=== PATIENT | male | born 1965 | race Caucasian/White ===

== ENCOUNTER 2019-04-29 19:46 | Emergency (ER) | payer MEDICAID, SELFPAY ==
[2019-04-29 19:47] VITALS: BP 162/98; PULSE 81; RESP 16; TEMP 36.7; O2SAT 97; BMI 34.3
--- NOTE | 2019-04-29 20:14 | ED.VIS.LOWEX ---
History of Present Illness Chief Complaint: Lower Extremity Injury Informant: Patient Occurred: Today - 5-6 hrs ago Mechanism/Context: - - suddenly while stepping out of his truck Timing: Continuous Quality of Pain: Aching Location: left knee, anteriorly Current Severity: Severe Maximum Severity: Severe Worsened by: bending and while resting Relieved by: walking Associated Symptoms: Negative for: Parasthesia, Weakness, Loss of Funtion Narrative: Patient denies any direct trauma. He stepped out of his truck and had sudden pain in his left knee that has persisted all day today. He states the pain is severe yet he did not take any medication for it. He had an ACL repair remotely and wants to make sure that is okay. - Past Medical History (1) Type 2 diabetes mellitus Status: Chronic Past Medical History - Allergies and Home Meds Allergies/Adverse Reactions: Allergies aspirin Allergy (Verified 04/29/19 19:48) Other Primary Care Physician: Care Physician,No Primary [Primary Care Provider] - Surgical History: - - Left ACL repair Lives: Spouse/ Significant Other Smoking Status: Never smoker Review of Systems General: Denies: Chills, Fever, Sweats Musculoskeletal: Reports: Extremity Pain. Denies: Swelling Skin: Denies: Rash, Wounds Neurological: Denies: Headache, Weakness, Numbness Physical Exam Vital Signs/Narrative: Vital Signs Temp Pulse Resp BP Pulse Ox 04/29/19 19:47 98.0 F 81 16 162/98 H 97 Inital Vital Signs reviewed: Yes - Extremity Exam Left Knee: Limited ROM - With regards to flexion only due to pain. Can flex most of the way. Extensor mechanism intact., - - No signs of trauma. He has mild diffuse tenderness but the majority of it is right at the patellar ligament, between the patella and the tibial tuberosity, the latter of which is mildly tender. No significant pain or laxity with stressing all 4 knee ligaments with a negative Ti and negative posterior drawer.. Negative for: Edema - No effusion General: Well nourished, Well developed, - - NAD Head: Normocephalic, Atraumatic Skin: Normal color, No rash, No Trauma Neurological: Alert, Oriented x3, Cranial nerves II-XII grossly intact, Normal Strength, Normal Sensation Psychological: Normal affect, Normal Mood Diagnostic/Tx/Re-eval - Medical Decision Making I do not think patient needs an x-ray since he really has no focal significant bony tenderness. I think he just strained it. Supportive care is advised along with an Dominguez wrap, since he has taken nothing at home he was given something here, but I will not prescribe anti-inflammatories since he has diabetes, which I would have done under normal circumstances if he did not have diabetes. We will give him orthopedic follow-up in case he does not get better after about a week or so. ED Disposition - Plan for ED Patient: Disposition: Home or Assisted Living Diagnosis: Strain of left patellar tendon Instructions: Knee Sprain Referrals: Dominic Mendiola DO [STAFF PHYSICIAN] - 1 Week if not improving
[2019-04-29] MEDS: Acetaminophen 500 MG Tablet 1000 MG PO (20:28)
[2019-04-29] MEDS: Naproxen 250 MG Tablet 500 MG PO (20:28)
[2019-04-29 20:29] VITALS: RESP 18
== END 2019-04-29 20:33 | disposition home or self-care (01) ==
LOC: ED 20:22
PROVIDERS: Emergency Provider Emergency Medicine
DX: S76.112A Strain of left quadriceps muscle, fascia and tendon, initial encounter (principal); X58.XXXA Exposure to other specified factors, initial encounter; Y93.89 Activity, other specified; Y92.812 Truck as the place of occurrence of the external cause; E11.9 Type 2 diabetes mellitus without complications; Z79.84 Long term (current) use of oral hypoglycemic drugs
CPT/HCPCS: 99282

== ENCOUNTER 2019-05-18 01:38 | Emergency (ER) | payer MEDICAID, SELFPAY ==
[2019-05-18 01:41] VITALS: BP 161/84; PULSE 86; RESP 18; TEMP 36.4; O2SAT 95; BMI 34.5
--- NOTE | 2019-05-18 01:48 | ED.DCSUM_ITS ---
History of Present Illness Chief Complaint: Nosebleed Narrative: Patient is a 53-year-old male who presents with a nosebleed. His bleeding has been from the right side. It began about 4 hours ago. He has been unable to control it with direct pressure. He does have a history of frequent nosebleeds. 5 to 6 years ago he was seen in another emergency department and underwent cautery. He does not use oxygen. He is not on any anticoagulation. He is otherwise been well. No recent illness. Past Medical History - Allergies and Home Meds Allergies/Adverse Reactions: Allergies aspirin Allergy (Verified 05/18/19 01:40) Other Past Medical History: - - Diabetes, hypertension Surgical History: - - Left ACL repair Smoking Status: Former smoker Review of Systems All systems negative except as indicated General: Denies: Fever ENT: Reports: - - Epistaxis Cardiovascular: Denies: Chest pain Respiratory: Denies: Dyspnea Gastrointestinal: Denies: Nausea, Vomiting Musculoskeletal: Denies: Myalgias, Arthralgias Skin: Denies: Rash Neurological: Denies: Headache Physical Exam Vital Signs/Narrative: Vital Signs Temp Pulse Resp BP Pulse Ox 05/18/19 01:41 97.6 F L 86 18 161/84 H 95 General: Well nourished Head: Normocephalic ENT: Moist mucous membranes, - - Patient has irritated oozing mucosa of the anterior nasal septum on the right Neck: Supple Cardiovascular: Regular rate Respiratory: No distress Skin: Normal color Neurological: Alert Psychological: Normal affect Diagnostic/Tx/Re-eval - Medical Decision Making An Afrin-soaked cotton ball was placed in the right nare. Given that he was u sing without this bleeding I thought he was good candidate for thrombin matrix epistaxis kit. Thrombin matrix was used with hemostasis. Patient was observed without any further bleeding. He will be discharged. ED Disposition - Plan for ED Patient: Disposition: Home or Assisted Living Diagnosis: Epistaxis Instructions: Nosebleed
[2019-05-18] MEDS: Oxymetazoline 0.05% 1 SPRAY SPRAY.BTL NASAL (01:59)
[2019-05-18 02:23] VITALS: RESP 18; O2SAT 98
== END 2019-05-18 02:24 | disposition home or self-care (01) ==
PROVIDERS: Emergency Provider Emergency Medicine
DX: R04.0 Epistaxis (principal); I10 Essential (primary) hypertension; E11.9 Type 2 diabetes mellitus without complications; Z79.84 Long term (current) use of oral hypoglycemic drugs; Z87.891 Personal history of nicotine dependence
CPT/HCPCS: 30901; 99282

== ENCOUNTER 2019-05-30 20:37 | Emergency (ER) | payer MEDICAID, SELFPAY ==
[2019-05-30 20:39] VITALS: BP 157/106; PULSE 84; RESP 16; TEMP 36.7; O2SAT 95; BMI 33.3
--- NOTE | 2019-05-30 22:01 | ED.DCSUM_ITS ---
History of Present Illness Chief Complaint: Cold Sx Informant: Patient Onset: Weeks - 3 Context: Gradual Onset Timing: Continuous Quality: occ prod cough Current Severity: Moderate Maximum Severity: Moderate Worsened by: - - coughing Relieved by: - - nothing; not improving after 3 wks Associated Symptoms: Nasal Congestion, Headache - occasional, not now, Productive Cough, - - mild sore throat. no earache.. Negative for: Sinus Pressure, Nausea, Vomiting, Diarrhea, Shortness of Breath, Chest Pain, Hemoptysis Narrative: Patient no longer smokes. Has history of COPD without home oxygen, states that his COPD has not felt like it is flared up, he has really had no wheezing. No chest pain. No leg swelling. No neck pain or stiffness,. No fevers. - Past Medical History (1) COPD (chronic obstructive pulmonary disease) Status: Chronic (2) Type 2 diabetes mellitus Status: Chronic Past Medical History - Allergies and Home Meds Allergies/Adverse Reactions: Allergies aspirin Allergy (Verified 05/30/19 20:43) Other Primary Care Physician: [facility] Doctor,Out of [Primary Care Provider] - Surgical History: - - Left ACL repair Lives: Spouse/ Significant Other Smoking Status: Former smoker Review of Systems General: Reports: Malaise. Denies: Chills, Fever, Sweats Eyes: Denies: Visual changes - bilaterally, Diplopia ENT: Reports: Rhinorrhea, Sore throat. Denies: Bilateral ear pain Cardiovascular: Denies: Chest pain, Palpitations, Heart racing Respiratory: Reports: Cough, Sputum. Denies: Dyspnea, Dyspnea on exertion Gastrointestinal: Denies: Abdominal pain, Nausea, Vomiting, Diarrhea, Melena, Hematochezia Genitourinary: Denies: Dysuria, Hematuria, Frequency Musculoskeletal: Denies: Back pain, Swelling, Extremity Pain Skin: Denies: Rash, Wounds Neurological: Denies: Headache, Weakness, Numbness Physical Exam Vital Signs/Narrative: Vital Signs Temp Pulse Resp BP Pulse Ox 05/30/19 20:39 98.0 F 84 16 157/106 H 95 Inital Vital Signs reviewed: Yes General: Well nourished, Well developed Head: Normocephalic, Atraumatic Eyes: Perrl, EOMI Ears: Normal external canal, TM's clear Nose: Normal Inspection, No Rhinorrhea Mouth/Throat: Normal Inspection, Airway Patent, Posterior Oropharyngeal Erythema Tonsils: Negative for: Right Tonsilar Exudates, Left Tonsilar Exudates Neck: Supple, Nontender, No Lymphadenopathy, No Meningismus Cardiovascular: Regular rate, Regular rhythm, No murmurs Respiratory: No distress, CTA bilaterally, Chest nontender Abdomen: Soft, Nontender, Nondistended, Normal bowel sounds Back: Nontender, Normal Inspection Extremities: Nontender, No edema. Negative for: Calf Tenderness Skin: Normal color, No rash Neurological: Alert, Oriented x3, Cranial nerves II-XII grossly intact, Normal Strength, Normal Sensation, Normal Gait Psychological: Normal affect, Normal Mood Diagnostic/Tx/Re-eval - Medical Decision Making With history of COPD, respiratory symptoms not improving after 3 weeks, and diabetes I think it is reasonable to treat him with a broad-spectrum antibiotic. His pulse ox is good, his lungs are clear so I do not think further work-up including chest x-ray is indicated at this time. All questions answered at the bedside patient is comfortable with this plan. ED Disposition - Plan for ED Patient: Disposition: Home or Assisted Living Diagnosis: Acute bronchitis, COPD (chronic obstructive pulmonary disease) Instructions: BRONCHITIS, Antiobiotic Treatment (Adult) Prescriptions: Azithromycin [Zithromax Z-Evangelist] 250 mg PO UD #1 box Transmission Status: Pending to [facility] - [place] Referrals: [facility] Doctor,Out of [Primary Care Provider] - 1 Week if not improving
[2019-05-30 22:10] VITALS: PULSE 94; RESP 22; O2SAT 97
== END 2019-05-30 22:11 | disposition home or self-care (01) ==
LOC: ED 22:08
PROVIDERS: Emergency Provider Emergency Medicine
DX: J44.0 Chronic obstructive pulmonary disease with (acute) lower respiratory infection (principal); J20.9 Acute bronchitis, unspecified; E11.9 Type 2 diabetes mellitus without complications; Z79.84 Long term (current) use of oral hypoglycemic drugs; Z99.81 Dependence on supplemental oxygen; Z87.891 Personal history of nicotine dependence
CPT/HCPCS: 99282

== ENCOUNTER 2019-06-02 20:54 | Emergency (ER) | payer MEDICAID, SELFPAY ==
[2019-06-02 20:56] VITALS: BP 186/115; PULSE 86; RESP 18; TEMP 37.1; O2SAT 96; BMI 33.2
[2019-06-02 21:33] VITALS: PULSE 80; RESP 15; O2SAT 96
--- NOTE | 2019-06-02 21:41 | ED.DCSUM_ITS ---
- ER Visit Summary Date of Service: 06/02/19 Chief Complaint: Nosebleed History of Present Illness: The patient is a 53 M who presents with intermittent nosebleeds for 3 days. He states he has had intermittent nosebleeds for 3 days. They have been stopping on their own but one lasted a little longer than normal so he came in. Denies any trauma. He is on no blood thinning medications. He has had a history of epistaxis in the past. He is currently living in his car with his significant other. He took nothing for this. Physical Examination: Vital signs reviewed. HEENT exam reveals dried blood in the left nares. No active bleeding. There is no septal hematoma. His neck is supple. The rest of his exam is unremarkable. Test Results: None performed Emergency Department Course and Treatment: The patient currently has epistaxis that is intermittent. He does have some dried membranes. I will send him home with Gilmer nasal spray. I do not feel he needs any packing at this time. He will follow-up with his PCP Treatment Plan: [] Disposition: Discharge Impression: Epistaxis, resolved This note was generated with [employer] dictation software. It may contain incorrect words, spelling, and punctuation that were not noted in review of the chart prior to signing ED Disposition - Plan for ED Patient: Disposition: Home or Assisted Living Instructions: Nosebleed Prescriptions: Sodium Chloride 0.65% [Gilmer Nasal [place]] 1 spray NASAL BID #1 spray.btl Transmission Status: Pending to [facility] - [place] Referrals: Care Physician,No Primary [Primary Care Provider] - Additional Instructions: Your prescription was electronically transmitted to [facility]
[2019-06-02 21:53] VITALS: BP 140/101; PULSE 72; RESP 16; O2SAT 98
== END 2019-06-02 21:54 | disposition home or self-care (01) ==
PROVIDERS: Emergency Provider Emergency Medicine
DX: R04.0 Epistaxis (principal); I10 Essential (primary) hypertension; J44.9 Chronic obstructive pulmonary disease, unspecified; E11.9 Type 2 diabetes mellitus without complications; Z79.84 Long term (current) use of oral hypoglycemic drugs; Z59.0 Homelessness; Z72.0 Tobacco use
CPT/HCPCS: 99281; 99282

== ENCOUNTER 2019-08-24 11:09 | Emergency (ER) | payer MEDICAID, SELFPAY ==
[2019-08-24 11:10] VITALS: BP 158/112; PULSE 81; RESP 18; TEMP 36.2; O2SAT 97; BMI 35.0
--- NOTE | 2019-08-24 12:05 | ED.DCSUM_ITS ---
- ER Visit Summary Date of Service: 08/24/19 Chief Complaint: Back pain History of Present Illness: The patient is a 54 M who presents with back pain that has been constant for the past 3 days. Patient states he has a history of chronic back problems. Patient states he recently moved to the area from [facility]. Patient does not have a primary care physician currently. Patient states he has been doing a lot of bending and working at his new house. Patient describes the pain as burning and stabbing at times. Patient states pain is over the lower lumbar area and radiates up to his lower thoracic area. Patient states the pain is worse when he bends forward. Patient does admit to some tingling in his low back. Patient states pain does radiate into his abdomen somewhat. Patient denies any dysuria or hematuria. Patient denies any urinary or stool incontinence. Physical Examination: Vital signs are stable. Patient is afebrile. Patient is in no acute distress. Oral mucosa is pink and moist. Neck is supple. Trachea is midline. There is no JVD. Heart was regular rate and rhythm. Lungs are clear and equal bilaterally. Abdomen is soft. Bowel sounds are normal. There is no tenderness. Cranial nerves II through XII are intact. Strength is 5/5 bilaterally in the upper and lower extremities. There are no sensory deficits noted. Deep tendon reflexes are 2/4 bilaterally in the lower extremities. There is tenderness over the lumbar spine and paraspinal muscles, worse on the right. There is no bony crepitance or step-off. Range of motion was slightly limited in all motions of the lumbar spine secondary to pain. Straight leg raises were negative bilaterally. Emergency Department Course and Treatment: Patient was given injection of Toradol here. Patient was given prescriptions for Naprosyn and Flexeril. Ernesto duran was instructed to use ice to the area. Patient was instructed to follow- up with a primary care physician in 5 to 7 days. Patient understood and was agreeable with the plan. All questions were answered. Disposition: Discharge home Impression: 1. Lumbosacral strain This note was generated with [employer] software. It may contain incorrect words, spelling, and punctuation that were not noted in review of the chart prior to signing ED Disposition - Plan for ED Patient: Disposition: Home or Assisted Living Diagnosis: Lumbosacral strain Instructions: ED LUMBAR SPRAIN/STRAIN Prescriptions: cycloBENZAPRine HCl [Flexeril] 10 mg PO QHS PRN PRN #20 tab PRN Reason: Muscle Spasm Prescription Printed Naproxen [Naprosyn] 500 mg PO BID PRN #20 tab Prescription Printed Referrals: Care Physician,No Primary [Primary Care Provider] - Abraham Liu MD [STAFF PHYSICIAN] - 3-5 Days
[2019-08-24] MEDS: Ketorolac 60 MG/2 ML Vial IM (12:48)
== END 2019-08-24 13:40 | disposition home or self-care (01) ==
LOC: ED 12:54
PROVIDERS: Emergency Provider Emergency Medicine
DX: S39.012A Strain of muscle, fascia and tendon of lower back, initial encounter (principal); X58.XXXA Exposure to other specified factors, initial encounter; Y93.9 Activity, unspecified; Y92.9 Unspecified place or not applicable; I10 Essential (primary) hypertension; J44.9 Chronic obstructive pulmonary disease, unspecified; E11.40 Type 2 diabetes mellitus with diabetic neuropathy, unspecified; G25.81 Restless legs syndrome; Z79.84 Long term (current) use of oral hypoglycemic drugs
CPT/HCPCS: 96372; 99282

== ENCOUNTER 2019-11-20 09:55 | Emergency (ER) | payer MEDICAID, SELFPAY ==
[2019-11-20 09:57] VITALS: BP 195/104; PULSE 67; RESP 14; TEMP 36.5; O2SAT 98; BMI 34.4
--- NOTE | 2019-11-20 10:08 | ED.DCSUM_ITS ---
- ER Visit Summary Date of Service: 11/20/19 Chief Complaint: Eye pain and swelling History of Present Illness: The patient is a 54 M with a gradual onset of right lower lid eye pain and swelling over several days. Denies any vision changes or systemic symptoms. He also complains of some lumps to his bilateral armpit areas. Physical Examination: Afebrile and vital signs are unremarkable. External ocular exam is unremarkable except for focal redness and swelling to the lateral lower right lid. The remainder of inspection is normal. No foreign bodies. Extract motion normal. Pupils normal. Patient also has folliculitis to his bilateral axillae on exam without abscess or cellulitis. Test Results: None indicated Emergency Department Course and Treatment: We will treat with warm compresses. He was started on clindamycin for his folliculitis. Follow-up with ophthalmology. Return for any change in vision or any new or concerning symptoms. Treatment Plan: As above Disposition: Discharge Impression: Hordeolum, right lower lid Bilateral axillary folliculitis This note was generated with [employer] dictation software. It may contain incorrect words, spelling, and punctuation that were not noted in review of the chart prior to signing ED Disposition - Plan for ED Patient: Referrals: Care Physician,No Primary [Primary Care Provider] -
--- NOTE | 2019-11-20 10:10 | ED.DEP ---
ED Disposition - Plan for ED Patient: Instructions: ED Hordeolum Prescriptions: Clindamycin [Cleocin] 300 mg PO 4X/DAY #80 cap Prescription Printed Referrals: Raj Olmedo MD [STAFF PHYSICIAN] -
[2019-11-20 10:42] VITALS: PULSE 79; RESP 20; O2SAT 97
--- NOTE | 2019-11-20 10:47 | ED.RN ---
THIS NURSE REVIEWED D/C INSTRUCTIONS WITH PT. PT VERBALIZED UNDERSTANDING OF INSTRUCTIONS. PT DENIES FURTHER NEEDS OR QUESTIONS AT THIS TIME.
== END 2019-11-20 10:47 | disposition home or self-care (01) ==
PROVIDERS: Emergency Provider Emergency Medicine
DX: H00.012 Hordeolum externum right lower eyelid (principal); L73.9 Follicular disorder, unspecified
CPT/HCPCS: 99283

== ENCOUNTER 2020-01-03 14:18 | Emergency (ER) | payer MEDICAID, SELFPAY ==
[2020-01-03 14:21] VITALS: BP 146/96; PULSE 89; RESP 14; TEMP 36.9; O2SAT 98; BMI 34.4
--- NOTE | 2020-01-03 14:25 | RAD_ITS ---
STUDY: X-RAY CHEST REASON FOR EXAM: Male, 54 years old. COUGH, HEADACHE, MUSCLE ACHES, EYE DISCOMFORT TECHNIQUE: Single AP portable view of the chest. COMPARISON: Comparison is made with prior examination dated 01/30/2017. FINDINGS: Hyperinflation. Scattered calcified granulomas. There is no demonstrated pleural abnormality. Normal size heart. Normal mediastinum and bruce. Normal visualized pulmonary arteries. There is atherosclerotic calcification of the aortic arch with tortuosity. There are diffuse degenerative changes of the visualized thoracic spine. Normal visualized ribs, clavicles, and shoulders. There is no demonstrated abnormality of the visualized soft tissue structures of the upper abdomen. RAD/Chest 1 View (Portable) IMPRESSION: Hyperinflation. The lungs are clear. Electronically Signed: Saurabh Snow, at 15:04 EDT , Service support ,
[2020-01-03 14:39] LABS: Absolute Lymphocyte Count 1.19 X10^3/uL (0.83-4.51); Absolute Neutrophil Count 4.2 X10^3/uL (2.0-7.7); Basophil# 0.06 X10^3/uL; Basophil% 0.9 % (0-1); Eosinophils% 4.7 % (0-5); Hematocrit 45.9 % (40-54); Hemoglobin 16.4 g/dL (13.0-16.5); Lymphocyte # 1.19 X10^3/ul (4.0); Lymphocyte % 18.6 % (19-41); Mean Corp Hgb Conc 35.7 g/dL (32-36); Mean Corpuscular Hgb 31.7 pg (27.0-32.0); Mean Corpuscular Volume 88.6 fL (80-94); Mean Platelet Vol. 10.1 fl (6.2-12.0); Monocyte# 0.65 X10^3/uL; Monocyte% 10.2 % (0-10); NRBC Flagged by Analyzer 0 % (0-5); Neutrophil # 4.18 X10^3/uL (2.7-7.7); Neutrophil % 65.3 % (47-70); Platelet Count 212 K/mm3 (150-450); RBC Distribution Width CV 11.9 % (11.6-14.6); RBC Distribution Width SD 38.2 fl (35.1-43.9); Red Blood Count 5.18 M/mm3 (4.6-6.2); White Blood Count 6.4 K/mm3 (4.4-11.0)
[2020-01-03] MEDS: Ibuprofen 400 MG Tablet 800 MG PO (16:23)
[2020-01-03 16:34] VITALS: BP 139/89; PULSE 79; RESP 23; O2SAT 95
--- NOTE | 2020-01-03 16:35 | ED.DCSUM_ITS ---
- ER Visit Summary Date of Service: 01/03/20 Chief Complaint: Cough History of Present Illness: The patient is a 54 M who reports he has a cough began 2 days ago. It is nonproductive. He reports that he has had mild difficulty breathing and has been wheezing. He denies any fever or chills. Ports he is had nausea without vomiting. No diarrhea. Patient does report that he is had sick contacts. He has no known exposure to coronavirus. He does wear a mask at work only. He reports a known history of COPD. Physical Examination: Vitals: Stable. Afebrile. General: Well-nourished and well-developed. Head: Normocephalic atraumatic. Neck: Supple, no lymphadenopathy. No JVD. Nontender. Cardiovascular: Regular rate and rhythm. No murmurs. Respiratory: No respiratory distress. Clear to auscultation bilaterally. Abdominal: Soft, nontender, nondistended, normal bowel sounds. No guarding, rebound, or peritoneal signs. Back: Nontender. Extremities: Nontender, no edema. Skin: Normal color, no rash. Neurologic: Alert and oriented ?3. Cranial nerves II through XII are intact. Normal strength and sensation. Psych: Normal affect. Test Results: CBC shows lymphocytes 19. Chem-7 shows a sodium 135 and glucose of 319. COVID-19 test is pending. Clinical Impression(s) from Imaging Studies Chest X-Ray 01/03/20 14:25 IMPRESSION: Hyperinflation. The lungs are clear. Electronically Signed: Saurabh Pringlejairo, at 15:04 EDT , Service support , Emergency Department Course and Treatment: Patient was treated ibuprofen. Is given a liter of normal saline. Treatment Plan: I had a prolonged discussion with the patient about further control of his blood sugar. He will be discharged with Zithromax and an albuterol MDI. I did not put him on steroids because he is also already hyperglycemic and has had minimal wheezing. He is instructed to follow-up his primary care physician in 10 to 14 days if not improving. I did discuss in the possibility that this could be a COVID-19 infection is instructed to quarantine for the next 10 to 14 days. He is given a note for work. Return to the emergency department for any worsening symptoms. Disposition: To home in improved and stable condition. Impression: 1. URI, possible COVID-19 infection. 2. COPD. This note was generated with [facility] dictation software. It may contain incorrect words, spelling, and punctuation that were not noted in review of the chart prior to signing ED Disposition - Plan for ED Patient: Disposition: Home or Assisted Living Instructions: ED Upper Resp Infec Abx Tx Prescriptions: Albuterol Inhaler [Ventolin Hfa] 1 - 2 puff INHALATION Q4H PRN PRN #1 inhaler PRN Reason: Wheezing Prescription Printed Azithromycin [Zithromax Z-Evangelist] 250 mg PO UD #1 box Prescription Printed Referrals: Doctor,Your [STAFF PHYSICIAN] - 10-14 Days if not better
[2020-01-03 16:42] VITALS: O2SAT 95
[2020-01-03 16:46] LABS: Anion Gap 5 (5-15); BUN 10 mg/dL (7-18); BUN/Creat Ratio 9.4 RATIO (10-20); Calcium,Total 8.6 mg/dL (8.5-10.1); Chloride 103 mmol/L (98-107); Creatinine, Serum 1.06 mg/dL (0.70-1.30); EST Glomerular Filtration Rate 78 mL/min (>60); Est Glom Filt Rate - Afr Amer 94 mL/min (>60); Estimated Creatinine Clearance 88.46 ml/min; Glucose 319 mg/dL (74-106); Potassium 4.4 mmol/L (3.5-5.1); Sodium Level 135 mmol/L (136-145)
[2020-01-03 17:05] VITALS: BP 135/89; PULSE 77; RESP 22; O2SAT 95
--- NOTE | 2020-01-03 17:05 | ED.RN ---
IV DC'ED, CATHETER INTACT, SMALL GAUZE DRESSING PLACED. DISCHARGE INSTRUCTIONS GIVEN TO AND REVIEWED WITH PATIENT, PATIENT DENIES QUESTIONS OR CONCERNS AND VOICES UNDERSTANDING OF DISCHARGE INSTRUCTIONS. PT AMBULATES OUT OF ROOM WITHOUT DIFFICULTY.
== END 2020-01-03 17:06 | disposition home or self-care (01) ==
PROVIDERS: Emergency Medicine; Emergency Provider Emergency Medicine
DX: J06.9 Acute upper respiratory infection, unspecified (principal); J44.9 Chronic obstructive pulmonary disease, unspecified; E11.65 Type 2 diabetes mellitus with hyperglycemia; Z79.84 Long term (current) use of oral hypoglycemic drugs; Z72.0 Tobacco use
CPT/HCPCS: 71045; 80048; 85025; 87635; 94760; 96360; 99284; J7040; A4216; U0003

== ENCOUNTER 2020-02-05 13:21 | Emergency (ER) | payer MEDICAID, SELFPAY ==
[2020-02-05 13:22] VITALS: BP 175/114; PULSE 81; RESP 20; TEMP 36.4; O2SAT 98; BMI 36.1
[2020-02-05 13:30] VITALS: BP 179/103
--- NOTE | 2020-02-05 13:34 | RAD_ITS ---
STUDY: X-RAY - LEFT FOOT CLINICAL: Male, 54 years old. 2nd toe bleeding TECHNIQUE: 3 view(s) of the foot. COMPARISON: None. FINDINGS: Normal talus, calcaneus, and tarsal bones. Normal visualized subtalar, talonavicular, calcaneocuboid, tarsal and tarsometatarsal articulations. Normal metatarsi. Normal metatarsophalangeal joint of the great toe. Normal tibial and fibular sesamoid bones. Normal interphalangeal joint of the great toe. Normal phalanges of the great toe. Normal second through fifth metatarsophalangeal joints. Normal interphalangeal joints and phalanges of the lesser toes. The soft tissue structures are unremarkable. RAD/Foot min 3 Views IMPRESSION: Normal x-ray examination of the foot. Electronically Signed: Jakob Ward, at 14:42 EDT Tel , Service support ,
--- NOTE | 2020-02-05 13:34 | ED.VIS.GEN ---
History of Present Illness Chief Complaint: Eye Problem Narrative: This patient is a 54-year-old male who presents with 2 separate complaints. He stubbed his left second toe yesterday. His nail was avulsed. He has noted a wound at the end of the toe and is concerned because he is diabetic. He had some blood and drainage in his sock. Additionally he noted that his right upper eyelid was red and swollen today. No visual changes. No discharge. No fevers. Past Medical History - Allergies and Home Meds Allergies/Adverse Reactions: Allergies aspirin Allergy (Verified 02/05/20 13:25) Other Primary Care Physician: [facility] Doctor,Out of [NON-STAFF] - Past Medical History: - - Diabetes, peripheral neuropathy Surgical History: - - Left ACL repair Smoking Status: Never smoker Review of Systems All systems negative except as indicated General: Denies: Fever Eyes: Reports: - - Right eyelid swelling. Denies: Visual changes - bilaterally Cardiovascular: Denies: Chest pain Respiratory: Denies: Dyspnea Gastrointestinal: Denies: Nausea, Vomiting, Diarrhea Musculoskeletal: Denies: Myalgias, Arthralgias Skin: Denies: Rash Neurological: Denies: Headache Physical Exam Vital Signs/Narrative: Vital Signs Temp Pulse Resp BP Pulse Ox 02/05/20 13:30 179/103 H 02/05/20 13:22 97.6 F L 81 20 H 175/114 H 98 Inital Vital Signs reviewed: Yes General: Well nourished Head: Normocephalic Eyes: EOMI, - - Patient has blepharitis, there is erythema and edema of the right upper eyelid the conjunctival are normal normal extraocular motion and pupils are equally round ENT: Moist mucous membranes Neck: Supple Cardiovascular: Regular rate, Regular rhythm Respiratory: No distress Extremities: - - There is an avulsion of the left second toenail and a superficial wound just proximal to this no erythema no drainage no bleeding sensation is decreased to light touch diffusely through the toes and patient states that this is baseline he has an easily palpable dorsalis pedis pulse, brisk cap refill Skin: Normal color Neurological: Alert Psychological: Normal affect Diagnostic/Tx/Re-eval Impressions Foot X-Ray 02/05/20 13:34 IMPRESSION: Normal x-ray examination of the foot. Electronically Signed: Jakob Ward, at 14:42 EDT Tel , Service support , 02/05/20 13:34 Foot min 3 Views [RAD] Stat - Medical Decision Making Foot x-ray is normal. Patient will be placed on oral antibiotics for left second toe wound and infection as well as ophthalmic antibiotics for blepharitis. He was instructed on supportive care. He understands to return for new or worsening symptoms. The patient was discharged. ED Disposition - Plan for ED Patient: Disposition: Home or Assisted Living Diagnosis: Blepharitis, Wound, open, toe Instructions: ED Inflammation Eyelid Prescriptions: Cephalexin [Keflex] 500 mg PO Q6 #40 cap Prescription Printed Referrals: [facility] Doctor,Out of [NON-STAFF] -
== END 2020-02-05 15:09 | disposition home or self-care (01) ==
PROVIDERS: Emergency Provider Emergency Medicine
DX: H01.001 Unspecified blepharitis right upper eyelid (principal); S91.205A Unspecified open wound of left lesser toe(s) with damage to nail, initial encounter; L08.9 Local infection of the skin and subcutaneous tissue, unspecified; X58.XXXA Exposure to other specified factors, initial encounter; Y93.9 Activity, unspecified; Y92.9 Unspecified place or not applicable; Y99.9 Unspecified external cause status; E11.42 Type 2 diabetes mellitus with diabetic polyneuropathy; Z79.84 Long term (current) use of oral hypoglycemic drugs
CPT/HCPCS: 73630; 99283

== ENCOUNTER 2020-05-14 16:56 | Emergency (ER) | payer MEDICAID, SELFPAY ==
[2020-05-14 16:57] VITALS: BP 130/70; PULSE 77; RESP 16; TEMP 36.7; O2SAT 94; BMI 33.9
--- NOTE | 2020-05-14 17:45 | ED.VIS.GEN ---
History of Present Illness Chief Complaint: Upper Extremity Injury Informant: Patient Narrative: 53-year-old male presenting with left index finger pain. Is not currently painful. He states when he works outside in the cold his finger gets white and cold. He states it will sometimes take hours to get his color completely back and sensation completely back. It does not happen to any other fingers. He denies any trauma. He states the tip of the finger where his calluses does not have good sensation. - Past Medical History (1) COPD (chronic obstructive pulmonary disease) Status: Chronic (2) Type 2 diabetes mellitus Status: Chronic Past Medical History - Allergies and Home Meds Allergies/Adverse Reactions: Allergies aspirin Allergy (Verified 05/14/20 16:59) Other Primary Care Physician: Kathie Alonso,Out of [Primary Care Provider] - Prior records reviewed: Yes Past Medical History: - - Reviewed in problem list Surgical History: noncontributory, - - Left ACL repair Lives: Alone Smoking Status: Never smoker Alcohol: None Drugs: None Review of Systems General: Denies: Chills, Fever, Sweats Eyes: Denies: Visual changes - bilaterally, Diplopia ENT: Denies: Rhinorrhea, Sore throat Cardiovascular: Denies: Chest pain, Palpitations Respiratory: Denies: Dyspnea, Cough, Dyspnea on exertion Gastrointestinal: Denies: Abdominal pain, Nausea, Vomiting, Diarrhea, Melena, Hematochezia Genitourinary: Denies: Dysuria, Hematuria, Frequency Musculoskeletal: Reports: - - Pain to left index finger when working Skin: Denies: Rash, Abscess Neurological: Reports: Parasthesia - The sensation at tip of left index finger with callusing. Denies: Headache Psych: Denies: Depression, Anxiety Physical Exam Vital Signs/Narrative: Vital Signs Temp Pulse Resp BP Pulse Ox 05/14/20 16:57 98.0 F 77 16 130/70 H 94 General: Well nourished, Well developed, No Acute Distress Eyes: Perrl, EOMI ENT: Moist mucous membranes, No rhinorrhea Cardiovascular: Regular rate, Regular rhythm Respiratory: No distress, CTA bilaterally Extremities: - - Left hand has normal strength and sensation. Brisk cap refill to all 5 fingers. Left index finger has full range of motion. There is decreased sensation at the tip of his left index finger where the calluses overlying. Erik's test normal. Skin: Normal color, No rash Neurological: Alert, Oriented x3 Psychological: Normal affect, Normal Mood Diagnostic/Tx/Re-eval - Medical Decision Making 54-year-old male presenting with left index finger pain when he works in a cold. His physical exam today is normal. He does have some decreased sensation at the tip of his finger however he has heavily callused hands and I think this is likely the reason. Patient likely has Raynaud's. He is counseled to keep his hands warm when working outdoors. He is also counseled he needs to follow-up with his primary care physician if the problem persists. Patient stable for discharge at this time. Impression: 1. Raynaud's ED Disposition - Plan for ED Patient: Referrals: [facility] Doctor,Out of [Primary Care Provider] -
--- NOTE | 2020-05-14 17:50 | ED.VISSUMM ---
- ER Visit Summary Date of Service: 05/14/20 Chief Complaint: [] History of Present Illness: The patient is a 54 M [] Physical Examination: [] Test Results: [] Emergency Department Course and Treatment: [] Treatment Plan: [] Disposition: [] Impression: [] This note was generated with [employer]land[employer] dictation software. It may contain incorrect words, spelling, and punctuation that were not noted in review of the chart prior to signing ED Disposition - Plan for ED Patient: Disposition: Home or Assisted Living Instructions: Raynaud Disease Referrals: [facility] Doctor,Out of [Primary Care Provider] -
--- NOTE | 2020-05-14 18:12 | ED.RN ---
DISCHARGE INSTRUCTIONS GIVEN TO AND REVIEWED WITH PATIENT, PATIENT DENIES QUESTIONS OR CONCERNS AND VOICES UNDERSTANDING OF DISCHARGE INSTRUCTIONS. PT AMBULATES OUT OF ROOM WITHOUT DIFFICULTY.
== END 2020-05-14 18:13 | disposition home or self-care (01) ==
LOC: ED 18:10
PROVIDERS: Emergency Provider Student in an Organized Health Care Education/Training Program
DX: I73.00 Raynaud's syndrome without gangrene (principal); J44.9 Chronic obstructive pulmonary disease, unspecified; E11.9 Type 2 diabetes mellitus without complications; Z79.84 Long term (current) use of oral hypoglycemic drugs
CPT/HCPCS: 99282

== ENCOUNTER 2020-07-24 08:07 | Observation (INO) | payer MEDICAID, SELFPAY ==
[2020-07-24] VITALS (9 sets, daily range): BP systolic 150–183; BP diastolic 93–110; PULSE 70–88; RESP 16–26; TEMP 35.8–36.7; O2SAT 91–96; BMI 34.9; BMI 34.2
--- NOTE | 2020-07-24 08:26 | EKG12_ITS ---
Test Reason : SOB Blood Pressure : / mmHG Vent. Rate : 070 BPM Atrial Rate : 070 BPM P-R Int : 148 ms QRS Dur : 146 ms QT Int : 422 ms P-R-T Axes : 048 -22 008 degrees QTc Int : 455 ms Normal sinus rhythm Right bundle branch block Abnormal ECG Confirmed by INA BROWN, MARY ([id number]), tape editor INOCENTE GOVEA ([id number]) on 07/26/2020 10:04:16 AM Referred By: NATIVIDAD Confirmed By:MARY BUCKLEY MD
--- NOTE | 2020-07-24 08:27 | ED.VIS.GEN ---
History of Present Illness Chief Complaint: Shortness of Breath Informant: Patient Narrative: 55-year-old male presents for the evaluation of shortness of breath. Patient states that he has a history of COPD. He tells me he takes and as needed inhaler but has not had any COPD exacerbations for a long time. Tells me for the past 2 days he has had shortness of breath with exertion and at rest. He notes that he has chronic chest pain and no change in that. He notes a cough that is different than normal and that he has gagging. He tells me that he has not had any nasal congestion but he did tell triage that he did. He denies any sore throat. He has chronic diarrhea. No syncopal episodes. No sputum production. No fevers or chills or myalgias. He endorses chronic dry mouth and increased thirst. Reports to me that he thinks it was 2017 that he had a heart catheterization that was negative. He does not take anything for hypertension and states that his readings are often high in the PCP office but comes down during his visit. - Past Medical History (1) COPD (chronic obstructive pulmonary disease) Status: Chronic (2) Type 2 diabetes mellitus Status: Chronic Past Medical History - Allergies and Home Meds Allergies/Adverse Reactions: Allergies aspirin Allergy (Verified 07/24/20 08:08) Other Surgical History: noncontributory, - - Left ACL repair Smoking Status: Never smoker Drugs: None Review of Systems General: Reports: Malaise. Denies: Chills, Fever, Sweats Eyes: Denies: Visual changes - bilaterally, Diplopia ENT: Denies: Rhinorrhea, Sore throat Cardiovascular: Reports: Chest pain - Chronic no change. Denies: Palpitations Respiratory: Reports: Dyspnea, Cough. Denies: Dyspnea on exertion Gastrointestinal: Reports: Diarrhea - Chronic no change. Denies: Abdominal pain, Nausea, Vomiting, Melena, Hematochezia Genitourinary: Denies: Dysuria, Hematuria, Frequency Musculoskeletal: Denies: Back pain, Extremity Pain Skin: Denies: Rash, Wounds Neurological: Denies: Headache, Weakness, Numbness Physical Exam Vital Signs/Narrative: Vital Signs Temp Pulse Resp BP Pulse Ox 07/24/20 08:08 96.5 F L 80 16 183/110 H 91 Inital Vital Signs reviewed: Yes General: Well nourished, Well developed, Obese, No Acute Distress Head: Normocephalic, Atraumatic Eyes: Perrl, EOMI ENT: Moist mucous membranes, No rhinorrhea Neck: Supple, Nontender Cardiovascular: Regular rate, Regular rhythm, No murmurs Respiratory: No distress, CTA bilaterally, Chest nontender Abdomen: Soft, Nontender, Nondistended, Normal bowel sounds Back: Nontender, Normal Inspection Extremities: Nontender, No edema Skin: Normal color, No rash Neurological: Alert, Oriented x3, Cranial nerves II-XII grossly intact, Normal Strength, Normal Sensation Psychological: Normal affect, Normal Mood Diagnostic/Tx/Re-eval Clinical Impression(s) from Imaging Studies Chest X-Ray 07/24/20 09:01 IMPRESSION: No acute abnormality is seen. Electronically Signed: Saurabh Snow MD at 9:12 EDT , Service support , Laboratory Last Values WBC 5.8 K/mm3 (4.4-11.0) 07/24/20 08:43 RBC 4.97 M/mm3 (4.6-6.2) 07/24/20 08:43 Hgb 15.2 g/dL (13.0-16.5) 07/24/20 08:43 Hct 44.6 % (40-54) 07/24/20 08:43 MCV 89.7 fL (80-94) 07/24/20 08:43 MCH 30.6 pg (27.0-32.0) 07/24/20 08:43 MCHC 34.1 g/dL (32-36) 07/24/20 08:43 RDW Std Deviation 39.5 fl (35.1-43.9) 07/24/20 08:43 RDW Coeff of Shanel 12.0 % (11.6-14.6) 07/24/20 08:43 Plt Count 184 K/mm3 (150-450) 07/24/20 08:43 MPV 10.2 fl (6.2-12.0) 07/24/20 08:43 Immature Gran % (Auto) 0.300 % (0.0-0.9) 07/24/20 08:43 Neut % (Auto) 70.0 % (47-70) 07/24/20 08:43 Lymph % (Auto) 18.9 % (19-41) L 07/24/20 08:43 [place] % (Auto) 7.8 % (0-10) 07/24/20 08:43 Eos % (Auto) 2.3 % (0-5) 07/24/20 08:43 Baso % (Auto) 0.7 % (0-1) 07/24/20 08:43 Absolute Neuts (auto) 4.0 X10^3/uL (2.0-7.7) 07/24/20 08:43 Absolute Lymphs (auto) 1.09 X10^3/uL (0.83-4.51) 07/24/20 08:43 Nucleated RBC % 0 % (0-5) 07/24/20 08:43 Sodium 130 mmol/L (136-145) L 07/24/20 08:43 Potassium 4.8 mmol/L (3.5-5.1) 07/24/20 08:43 Chloride 94 mmol/L (98-107) L 07/24/20 08:43 Carbon Dioxide 29.0 mmol/L (21.0-32.0) 07/24/20 08:43 Anion Gap 7 (5-15) 07/24/20 08:43 BUN 16 mg/dL (7-18) 07/24/20 08:43 Creatinine 1.33 mg/dL (0.70-1.30) H 07/24/20 08:43 Estim Creat Clear Calc 69.69 ml/min 07/24/20 08:43 Est GFR (MDRD) Af Amer 72 mL/min (>60) 07/24/20 08:43 Est GFR (MDRD) Non-Af 60 mL/min (>60) 07/24/20 08:43 BUN/Creatinine Ratio 12.0 RATIO (10-20) 07/24/20 08:43 Glucose 496 mg/dL (74-106) H* 07/24/20 08:43 Calcium 9.2 mg/dL (8.5-10.1) 07/24/20 08:43 Total Bilirubin 0.40 mg/dL (0.20-1.00) 07/24/20 08:43 AST 10 U/L (15-37) L 07/24/20 08:43 ALT 26 U/L (16-61) 07/24/20 08:43 Alkaline Phosphatase 61 U/L (45-117) 07/24/20 08:43 Troponin I 0.018 ng/mL (<0.045) 07/24/20 08:43 Total Protein 7.0 g/dL (6.4-8.2) 07/24/20 08:43 Albumin 3.3 g/dL (3.2-5.0) 07/24/20 08:43 Globulin 3.7 g/dL (2.2-4.2) 07/24/20 08:43 Albumin/Globulin Ratio 0.9 RATIO (0.9-2.4) 07/24/20 08:43 - EKG Initial EKG Interpretation: Sinus Rhythm - EKG demonstrates a normal sinus rhythm at a rate of 70 bpm with a right bundle branch block. - Medical Decision Making The patient ambulates starting at 91% on room air and increases to 94. He is visibly fatigued when he gets done walking. Patient remains significantly hypertensive currently 178/97. The patient's Covid and influenza swabs are negative. My interpretation of his chest x-ray is no acute process. Troponin negative. D-dimer 0.33. EKG has a normal sinus rhythm with a new right bundle compared to his last EKG. His blood sugar significantly elevated at 496 and he received insulin. He tells me at the current time he only takes Metformin for his blood sugar. This would explain his chronic dry mouth and thirst. My concern is his dyspnea and fatigue could be his anginal equivalentand which may be complicated from his chronic chest pain. She has remained hypertensive. He received a dose of amlodipine. Heart score is 4-5 placing him in the high risk category. Its been about 4 years since his last cardiac evaluation. I will speak with the hospitalist about admission. ED Disposition - Plan for ED Patient: Disposition: Acute Care Hospital [facility] Diagnosis: Dyspnea, Hyperglycemia due to type 2 diabetes mellitus
[2020-07-24 08:53] LABS: Absolute Lymphocyte Count 1.09 X10^3/uL (0.83-4.51); Basophil# 0.04 X10^3/uL; Basophil% 0.7 % (0-1); Eosinophil# 0.13 X10^3/uL; Eosinophils% 2.3 % (0-5); Hematocrit 44.6 % (40-54); Hemoglobin 15.2 g/dL (13.0-16.5); Lymphocyte # 1.09 X10^3/ul (0.83-4.51); Lymphocyte % 18.9 % (19-41); Mean Corp Hgb Conc 34.1 g/dL (32-36); Mean Corpuscular Hgb 30.6 pg (27.0-32.0); Mean Corpuscular Volume 89.7 fL (80-94); Mean Platelet Vol. 10.2 fl (6.2-12.0); Monocyte# 0.45 X10^3/uL; Monocyte% 7.8 % (0-10); NRBC Flagged by Analyzer 0 % (0-5); Neutrophil # 4.04 X10^3/uL (2.7-7.7); Platelet Count 184 K/mm3 (150-450); RBC Distribution Width SD 39.5 fl (35.1-43.9); Red Blood Count 4.97 M/mm3 (4.6-6.2); White Blood Count 5.8 K/mm3 (4.4-11.0)
--- NOTE | 2020-07-24 09:01 | RAD_ITS ---
STUDY: X-RAY CHEST REASON FOR EXAM: Male, 55 years old. Dyspnea TECHNIQUE: Single AP portable view of the chest. COMPARISON: Comparison is made with prior study dated 01/03/2020. FINDINGS: EKG electrodes are seen. The lungs are clear and expanded. There is no demonstrated pleural abnormality. Normal size heart. Normal mediastinum and bruce. Normal visualized pulmonary arteries. Normal visualized aortic arch and descending thoracic aorta. There are diffuse degenerative changes of the visualized thoracic spine. Normal visualized ribs, clavicles, and shoulders. There is no demonstrated abnormality of the visualized soft tissue structures of the upper abdomen. RAD/Chest 1 View (Portable) IMPRESSION: No acute abnormality is seen. Electronically Signed: Saurabh Snow MD at 9:12 EDT , Service support ,
[2020-07-24 09:16] LABS: ALB/GLOB Ratio 0.9 RATIO (0.9-2.4); AST(SGOT) 10 U/L (15-37); Alanine Aminotransfer ALT/SGPT 26 U/L (16-61); Albumin, Serum 3.3 g/dL (3.2-5.0); Alkaline Phosphatase 61 U/L (45-117); Anion Gap 7 (5-15); BUN 16 mg/dL (7-18); Calcium,Total 9.2 mg/dL (8.5-10.1); Chloride 94 mmol/L (98-107); Creatinine, Serum 1.33 mg/dL (0.70-1.30); EST Glomerular Filtration Rate 60 mL/min (>60); Est Glom Filt Rate - Afr Amer 72 mL/min (>60); Estimated Creatinine Clearance 69.69 ml/min; Globulin 3.7 g/dL (2.2-4.2); Glucose 496 mg/dL (74-106); Potassium 4.8 mmol/L (3.5-5.1); Sodium Level 130 mmol/L (136-145)
[2020-07-24] MEDS: Insulin Lispro 100 UNIT/ML INSULN.PEN 15 UNIT SC (09:31)
[2020-07-24 09:56] LABS: D-Dimer Quantitative (DVT/PE) 0.33 FEU/ug/m (0.27-0.49)
[2020-07-24] MEDS: amLODIPine 5 MG Tablet PO (10:19)
--- NOTE | 2020-07-24 10:26 | STEWCON_ITS ---
Reason For Study: Chest Pain Stress Results Protocol: Dobutamine Stress Echo With Definity Maximum Predicted HR: 166 bpm Target HR: 141 bpm % Maximum Predicted HR: 85 % DurationHeart Rate Stage (mm:ss) (bpm) BP Comment Baseline 63 141/91No Chest Pain; 6 ML Diluted Definity DSE10 MCG 3:52 74 139/83No Chest Pain DSE 20 MCG 3:00 125 158/72No Chest Pain; Mild Dyspnea DSE 30 MCG 3:00 134 141/74No Chest Pain; Mild Dyspnea DSE 40 MCG 3:13 141 131/65No Chest Pain; Mild Dyspnea Recovery 96 140/73No Chest Pain; No Dyspnea Stress Duration: 13:05 mm:ss Maximum Stress HR: 141 bpm METS: 1 Baseline Echocardiogram Findings The estimated ejection fraction is 60 %. EF with dobutamine infusion in 75%. Stress Echo Wall motion Data Resting WM Intermediate WM Stress WM Resting Wall Motion Wall Motion Int. Wall Motion Stress No regional wall motion No regional wall motion No regional wall motion abnormalities noted. abnormalities noted. abnormalities noted. EKG Data The baseline ECG displays normal sinus rhythm. RBBB. No ischemic EKG changes. Symptoms with Stress The patient experinced no chest pain . ECHO/Stress Test Echo W/Contrast Interpretation Summary The estimated ejection fraction is 60 %. Dobutamine echo is negative for dobutamine infusion induced CP or EKG or echoca rdiographic changes of ischemia Ordering Physician: Abiodun Moreno D.O. Referring Physician: James Miller M.D. Performed By: Dami Moon RCS
[2020-07-24 11:45] LABS: Bedside Glucose 143 mg/dL (70-110)
[2020-07-24 13:26] LABS: Bedside Glucose 138 mg/dL (70-110)
--- NOTE | 2020-07-24 14:59 | HP.PCM_ITS ---
Problem List (1) Hypertension Status: Chronic (2) Chest pain Status: Chronic (3) Type 2 diabetes mellitus Status: Chronic (4) COPD (chronic obstructive pulmonary disease) Status: Chronic (5) Dyspnea Status: Acute (6) Hyperglycemia due to type 2 diabetes mellitus Status: Chronic History of Present Illness Date of Admission: 07/24/20 Chief Complaint: Progressively worsening shortness of breath with exertion Patient is a 55-year-old male who presented to the ED at [facility] on 07/24/2020 with a chief complaint of progressively worsening shortness of breath with exertion. Patient reports that this has been going on for 2 days and is worse with exertion, but better with rest. Patient also endorses a chronic chest pain which he endorses as crushing, in which he rates at a 7 out of 10 times. Patient has had this extensively worked up in the past, with no clear etiology found. Patient's last cardiac evaluation was 4 years ago. Patient denies any orthopnea, however does endorse paroxysmal nocturnal dyspnea. Vital signs demonstrate tachypnea at a average rate of 23, hypertension above 150/90 and oxygen saturations at 95% on room air. Chest x- ray demonstrates no acute cardiopulmonary process. EKG is NSR with a new right bundle branch block (compared to previous EKG). Troponins not elevated. D- dimer not elevated. CBC unremarkable. BMP demonstrates mild hyponatremia 130, mildly elevated creatinine at 1.33, and a serum glucose of 496. Heart score from the ED was between 4 and 5. Patient received a dose of amlodipine in the ED for hypertension. Patient will be admitted for dyspnea with exertion, hyperglyc emia due to poorly controlled DM 2 and evaluation of unspecified chronic chest pain. Past Medical History Past Medical History (Chronic Problems): Chronic Problems Type 2 diabetes mellitus (Chronic) COPD (chronic obstructive pulmonary disease) (Chronic) Hyperglycemia due to type 2 diabetes mellitus (Chronic) Hypertension (Chronic) Chest pain (Chronic) Allergies aspirin Allergy (Verified 07/24/20 08:08) Other Home Medications: Ambulatory Orders Medication Instructions Recorded Metformin HCl 1,000 mg PO BID 01/30/17 Gabapentin 600 mg PO TID 05/18/19 Ropinirole ER 1 mg PO QHS 05/30/19 Albuterol Inhaler [Ventolin Hfa] 1 - 2 puff INHALATION Q4H PRN PRN 01/03/20 #1 inhaler Simvastatin [Zocor] 10 mg PO DAILY 05/14/20 cycloBENZAPRine HCl [Flexeril] 10 mg PO TID PRN PRN 05/14/20 Glimepiride [Amaryl] 2 mg PO DAILY #30 tablet 07/24/20 Lisinopril [Zestril] 20 mg PO DAILY #30 tablet 07/24/20 Surgical History: noncontributory, rotator cuff repair, - - Left ACL repair Psychiatric History: No pertinent psych hx Lives: Alone Smoking Status: Former smoker - Has not smoked since the age of 16 Tobacco Use: Chew - Chews about half a can per day Drugs: None - *Family History Maternal History Items: Diabetes Paternal History Items: Cancer Review of Systems Constitutional: Reports: Malaise. Denies: Chills, Fever, Weight Change HEENT: Denies: Head Aches, Sinus Congestion, Sinus Drainage Cardiovascular: Reports: Chest Pain - Chronic 7 out of 10, Paroxysmal Noc. Dyspnea Respiratory: Reports: Shortness of Breath, Shortness of breath upon exertion. Denies: Cough, Sputum production Gastrointestinal: Denies: Abdominal Pain, Nausea, Vomiting Genitourinary: Denies: Dysuria Musculoskeletal: Denies: Joint Pain, Joint Tenderness Skin: Denies: Rash, Wounds Neurological: Denies: Numbness, Tingling, Focal weakness Psychiatric: Denies: Anxiety, Depression, Homicidal Ideations, Suicidal Ideations Hematologic/ Lymphatic: Denies: Easy Bruising, Easy Bleeding VTE Information - Inpt Only VTE Present on Admission: No Patient Problems: Active and Suspected Problems Dyspnea (Acute) Subjective: Patient is a 55-year-old male who is comfortably resting in bed, alert and oriented x3. Patient is not currently short of breath, although was short of breath down in the ED. Endorses a chronic chest pain that he rates at a 7 out of 10 and describes as crushing. Patient reports that he has had a chest pain work-up in the past, but no clear etiology has been identified. Objective: Clinical Impression(s) from Imaging Studies Chest X-Ray 07/24/20 09:01 IMPRESSION: No acute abnormality is seen. Electronically Signed: Saurabh Snow MD at 9:12 EDT , Service support , Stress Echocardiogram 07/24/20 10:26 Interpretation Summary The estimated ejection fraction is 60 %. Dobutamine echo is negative for dobutamine infusion induced CP or EKG or echocardiographic changes of ischemia Ordering Physician: Abiodun Moreno D.O. Referring Physician: James Miller M.D. Performed By: Dami Moon RCS - Physical Exam Vitals/I&O's: Vital Signs Temp Pulse Resp BP Pulse Ox 97.9 F 72 20 H 150/94 H 96 07/24/20 10:38 07/24/20 11:04 07/24/20 10:38 07/24/20 10:38 07/24/20 10:38 Oxygen Delivery Method Room Air Weight: 251 lb 15.814 oz Body Mass Index (BMI) 34.2 General: Alert, Oriented x3, Cooperative HEENT: Atraumatic, PERRLA, EOMI, Normocephalic Neck: Supple, No JVD, Negative Carotid Bruits Lungs: Clear to auscultation, Normal air movement, Tachypneic Cardiovascular: Regular rate, No murmurs Abdomen: Bowel Sounds Present, Soft, Non Tender Extremities: No edema, Capillary Refill Less than 3 Seconds Skin: No rashes, No breakdown Musculoskeletal: No Tenderness to Palpation of Joints or Extremities Neurological: Cranial nerves II-XII grossly intact Psych/Mental Status: Normal Affect, Appropriate Microbiology Past 72 Hours 07/24/20 08:30 Mucosa - Nasopharyngeal Influenza Types A,B Direct FA (HARSHAD) - Final 07/24/20 08:35 Nasal Secretion SARS-CoV-2 Antigen (Rapid) - Final Laboratory Results 07/24/20 08:43: WBC 5.8, RBC 4.97, Hgb 15.2, Hct 44.6, MCV 89.7, MCH 30.6, MCHC 34.1, RDW Std Deviation 39.5, RDW Coeff of Shanel 12.0, Plt Count 184, MPV 10.2, Immature Gran % (Auto) 0.300, Neut % (Auto) 70.0, Lymph % (Auto) 18.9 L, [place] % (Auto) 7.8, Eos % (Auto) 2.3, Baso % (Auto) 0.7, Absolute Neuts (auto) 4.0, Absolute Lymphs (auto) 1.09, Nucleated RBC % 0 07/24/20 08:43: Sodium 130 L, Potassium 4.8, Chloride 94 L, Carbon Dioxide 29.0, Anion Gap 7, BUN 16, Creatinine 1.33 H, Estim Creat Clear Calc 69.69, Est GFR (MDRD) Af Amer 72, Est GFR (MDRD) Non-Af 60, BUN/Creatinine Ratio 12.0, Glucose 496 H*, Calcium 9.2, Total Bilirubin 0.40, AST 10 L, ALT 26, Alkaline Phosphatase 61, Troponin I 0.018, Total Protein 7.0, Albumin 3.3, Globulin 3.7, Albumin/Globulin Ratio 0.9 07/24/20 08:43: D-Dimer Quant (PE/DVT) 0.33 07/24/20 11:18: Troponin I < 0.015 07/24/20 11:37: POC Glucose 143 H 07/24/20 13:21: POC Glucose 138 H Current Medications Sodium Chloride () 250 mls @ 15 mls/hr IV .[id number] PRN PRN Reason: Saline Flush Sodium Chloride () 250 mls @ 15 mls/hr IV .[id number] PRN PRN Reason: Additional IVPB Infusion Sodium Chloride (0.9% Saline Lock 10 Ml Syringe) 10 - 40 ml IV UD PRN PRN Reason: SALINE FLUSH Assessment/Plan All Active Problems Dyspnea (Acute) Patient is a 55-year-old male who presented to the ED at [facility] on 07/24/2020 with a chief complaint of progressively worsening shortne ss of breath with exertion. Patient also endorses a chronic chest pain which he describes as crushing and which he rates at a 7 out of 10. Patient has had this extensively worked up in the past, with no clear etiology found. Patient's last cardiac evaluation was 4 years ago. Patient denies any orthopnea, however does endorse paroxysmal nocturnal dyspnea. Work-up in the ED was significant for tachypnea at a rate of 23, hypertension at a rate of 150/90. Chest x-ray demonstrated no acute cardiopulmonary process. EKG is NSR with a new right bundle branch block ( compared to prior EKG). Troponins and D-dimer were both not elevated. CBC is unremarkable. BMP demonstrates mild hyponatremia 130, mildly elevated creatinine at 1.33, and a serum glucose of 496. Heart score in the ED was 4-5. on my physical examination patient appeared to be in no acute distress; was not short of breath or experiencing acute chest pain. Patient was able to carry on conversation in full sentences and is a good historian. Past medical history significant for diabetes mellitus type 2, COPD, hypertension, unspecified chest pain. Patient will be admitted for dyspnea with exertion, hyperglycemia secondary to DM 2 and evaluation of unspecified chronic chest pain. 1) Dyspnea w/ Exertion Chest x-ray reviewed by myself and the radiologist demonstrates no acute cardiopulmonary process. CBC unremarkable. D-dimer not elevated. Plan; admit to PCU for observation, obtain echocardiogram. 2) Hyperglycemia secondary to DM 2 Serum glucose 496. Patient currently on Metformin 1000 mg p.o. twice daily at home. Patient reports taking his Metformin as prescribed. 15 units of lispro given in the ED. Plan; consider adding diabetes medication upon discharge, continue Accu-Cheks and sliding scale insulin if patient remains admitted. Recommend patient follow-up with primary care provider within the next week. 3) Unspecified chronic chest pain Patient endorses a chronic chest pain history which he describes as crushing and 7 out of 10. Patient reports that previous cardiac work-up done over 4 years ago revealed no etiology. EKG in the ED is NSR with a new right bundle branch block. Troponins and D-dimer not elevated. Heart score in the ED was between 4 and 5, placing him at high risk. Patient only on simvastatin at home. Plan; admit to PCU for observation, echocardiogram ordered. 4) Hypertension Not within goal, sustained blood pressure of over 150/90 since admission. Patient not currently on any home blood pressure medications, reports that he has been taking on and off medications over the years. Patient open to trying blood pressure medication on discharge. Plan; initiate patient on lisinopril at discharge. DVT prophylaxis -low risk, early ambulation Patient seen by Enoch Lynn PA-C, under the supervision of Dr. Moreno.
--- NOTE | 2020-07-24 15:55 | DCINST_ITS ---
- Discharge Diagnoses Current Active Problems: Current Active and Chronic Problems Type 2 diabetes mellitus (Chronic) COPD (chronic obstructive pulmonary disease) (Chronic) Dyspnea (Acute) Hyperglycemia due to type 2 diabetes mellitus (Chronic) Hypertension (Chronic) Chest pain (Chronic) You will use the following diet at home:: No restrictions Your food should be the consistency of: Regular Your liquids should be the consistency of: Regular/Thin Discharge Activity: Return to Normal Activity Allergies/Adverse Reactions: Allergies aspirin Allergy (Verified 07/24/20 08:08) Other Medications to take at Discharge Metformin HCl 1,000 mg PO BID 01/30/17 Gabapentin 600 mg PO TID 05/18/19 Ropinirole ER 1 mg PO QHS 05/30/19 Albuterol Inhaler [Ventolin Hfa] 1 - 2 puff INHALATION Q4H PRN PRN #1 inhaler 01/03/20 Simvastatin [Zocor] 10 mg PO DAILY 05/14/20 cycloBENZAPRine HCl [Flexeril] 10 mg PO TID PRN PRN 05/14/20 Glimepiride [Amaryl] 2 mg PO DAILY #30 tablet 07/24/20 Lisinopril [Zestril] 20 mg PO DAILY #30 tablet 07/24/20 The following prescriptions were given: Glimepiride [Amaryl] 2 mg PO DAILY #30 tablet Lisinopril [Zestril] 20 mg PO DAILY #30 tablet Primary Care Physician: Kathie Doctor,Out of [NON-STAFF] - Please follow up with your Primary Care Physician in: Follow-up with primary care provider within the next week Test Results: Test results from this visit will be discussed in further detail at your follow- up appointment, if applicable.
--- NOTE | 2020-07-24 15:56 | PCM.DC.SUM ---
Discharge Date and Diagnosis - Problem List Patient Problems: Active and Suspected Problems Dyspnea (Acute) Date of Admission: 07/24/20 Date of Discharge: 07/24/20 - Primary Discharge Diagnosis Acute Problems: Active Problems Dyspnea (Acute) - Secondary Discharge Diagnosis Chronic Problems: Chronic Problems Type 2 diabetes mellitus (Chronic) COPD (chronic obstructive pulmonary disease) (Chronic) Hyperglycemia due to type 2 diabetes mellitus (Chronic) Hypertension (Chronic) Chest pain (Chronic) Hospital Course and Treatment Imaging Results: 07/24/20 09:01 Chest 1 View (Portable) [RAD] Stat 07/24/20 10:26 Stress Test Echo W/Contrast [ECHO] Routine Summary of Care Provided: Patient is a 55-year-old male who presented to the ED at [facility] on 07/24/2020 with a chief complaint of progressively worsening shortness of breath with exertion. Patient also endorses a chronic chest pain which he describes as crushing and which he rates at a 7 out of 10. Patient has had this extensively worked up in the past, with no clear etiology found. Patient's last cardiac evaluation was 4 years ago. Patient denies any orthopnea, however does endorse paroxysmal nocturnal dyspnea. EKG in the in the ED was NSR with a new right bundle branch block. Troponins and D-dimer were both not elevated throughout admission. X-ray on admission demonstrated no acute cardiopulmonary process. Echocardiogram obtained shortly after admission revealed an estimated EF of 60% and dobutamine echo is negative for induced chest pain or evidence of ischemia on EKG. In the absence of evidence of new or worsening disease, it is recommended that patient follow-up with outpatient provider in regards to chest pain and shortness of breath. Amaryl will be added to the patient's diabetic regimen as well as lisinopril for hypertension. Will be discharged today. 1) Dyspnea w/ Exertion Chest x-ray reviewed by myself and the radiologist demonstrates no acute cardiopulmonary process. CBC unremarkable. D-dimer not elevated. Echocardiogram as above. Unclear etiology of patient's dyspnea. 2) Hyperglycemia secondary to DM 2 Serum glucose 496. Patient currently on Metformin 1000 mg p.o. twice daily at home. Patient reports taking his Metformin as prescribed. 15 units of lispro given in the ED. Plan; Amaryl 2 mg p.o. daily added to diabetic regimen of Metformin. Follow-up with primary care provider within the next week. 3) Unspecified chronic chest pain Patient endorses a chronic chest pain history which he describes as crushing and 7 out of 10. Patient reports that previous cardiac work-up done over 4 years ago revealed no etiology. EKG in the ED is NSR with a new right bundle branch block. Troponins and D-dimer not elevated. Heart score in the ED was between 4 and 5, placing him at high risk. Patient only on simvastatin at home. Echocardiogram as above. Plan; clear etiology, follow-up with primary care provider within the next week. 4) Hypertension Not within goal, sustained blood pressure of over 150/90 since admission. Patient not currently on any home blood pressure medications, reports that he has been taking on and off medications over the years. Patient open to trying blood pressure medication on discharge. Plan; lisinopril 10 mg p.o. daily initiated on discharge, follow-up with primary care provider within the next week. Patient seen by Enoch Lynn PA-C, under the supervision of Dr. Moreno. Patient Problems: Active and Suspected Problems Dyspnea (Acute) Subjective: Patient is a 55-year-old male who is resting comfortably in bed, alert and oriented x3. Patient does not appear in any acute distress, and does not currently report any shortness of breath and chest pain that he presented with on admission. Objective: Clinical Impression(s) from Imaging Studies Chest X-Ray 07/24/20 09:01 IMPRESSION: No acute abnormality is seen. Electronically Signed: Saurabh Snow MD at 9:12 EDT , Service support , Stress Echocardiogram 07/24/20 10:26 Interpretation Summary The estimated ejection fraction is 60 %. Dobutamine echo is negative for dobutamine infusion induced CP or EKG or echocardiographic changes of ischemia Ordering Physician: Abiodun Moreno D.O. Referring Physician: James Miller M.D. Performed By: Dami Moon RCS - Physical Exam Vitals/I&O's: Vital Signs Temp Pulse Resp BP Pulse Ox 97.9 F 88 20 H 150/94 H 96 07/24/20 10:38 07/24/20 14:50 07/24/20 10:38 07/24/20 10:38 07/24/20 10:38 Oxygen Delivery Method Room Air Weight: 251 lb 15.814 oz Body Mass Index (BMI) 34.2 General: Alert, Oriented x3, Cooperative HEENT: Atraumatic, PERRLA, EOMI, Normocephalic Neck: Supple, No JVD, Negative Carotid Bruits Lungs: Clear to auscultation, Normal air movement, Tachypneic Cardiovascular: Regular rate, No murmurs Abdomen: Bowel Sounds Present, Soft, Non Tender Extremities: No edema, Capillary Refill Less than 3 Seconds Skin: No rashes, No breakdown Musculoskeletal: No Tenderness to Palpation of Joints or Extremities Neurological: Cranial nerves II-XII grossly intact Psych/Mental Status: Normal Affect, Appropriate Microbiology Past 72 Hours 07/24/20 08:30 Mucosa - Nasopharyngeal Influenza Types A,B Direct FA (HARSHAD) - Final 07/24/20 08:35 Nasal Secretion SARS-CoV-2 Antigen (Rapid) - Final Laboratory Results 07/24/20 08:43: WBC 5.8, RBC 4.97, Hgb 15.2, Hct 44.6, MCV 89.7, MCH 30.6, MCHC 34.1, RDW Std Deviation 39.5, RDW Coeff of Shanel 12.0, Plt Count 184, MPV 10.2, Immature Gran % (Auto) 0.300, Neut % (Auto) 70.0, Lymph % (Auto) 18.9 L, [place] % (Auto) 7.8, Eos % (Auto) 2.3, Baso % (Auto) 0.7, Absolute Neuts (auto) 4.0, Absolute Lymphs (auto) 1.09, Nucleated RBC % 0 07/24/20 08:43: Sodium 130 L, Potassium 4.8, Chloride 94 L, Carbon Dioxide 29.0, Anion Gap 7, BUN 16, Creatinine 1.33 H, Estim Creat Clear Calc 69.69, Est GFR (MDRD) Af Amer 72, Est GFR (MDRD) Non-Af 60, BUN/Creatinine Ratio 12.0, Glucose 496 H*, Calcium 9.2, Total Bilirubin 0.40, AST 10 L, ALT 26, Alkaline Phosphatase 61, Troponin I 0.018, Total Protein 7.0, Albumin 3.3, Globulin 3.7, Albumin/Globulin Ratio 0.9 07/24/20 08:43: D-Dimer Quant (PE/DVT) 0.33 07/24/20 11:18: Troponin I < 0.015 07/24/20 11:37: POC Glucose 143 H 07/24/20 13:21: POC Glucose 138 H Current Medications Sodium Chloride () 250 mls @ 15 mls/hr IV .[id number] PRN PRN Reason: Saline Flush Sodium Chloride () 250 mls @ 15 mls/hr IV .[id number] PRN PRN Reason: Additional IVPB Infusion Sodium Chloride (0.9% Saline Lock 10 Ml Syringe) 10 - 40 ml IV UD PRN PRN Reason: SALINE FLUSH Discharge Diet: No Restrictions Discharge Activity: Return to Normal Activity Home Medications: Medications to take at Discharge Metformin HCl 1,000 mg PO BID 01/30/17 Gabapentin 600 mg PO TID 05/18/19 Ropinirole ER 1 mg PO QHS 05/30/19 Albuterol Inhaler [Ventolin Hfa] 1 - 2 puff INHALATION Q4H PRN PRN #1 inhaler 01/03/20 Simvastatin [Zocor] 10 mg PO DAILY 05/14/20 cycloBENZAPRine HCl [Flexeril] 10 mg PO TID PRN PRN 05/14/20 Glimepiride [Amaryl] 2 mg PO DAILY #30 tablet 07/24/20 Lisinopril [Zestril] 20 mg PO DAILY #30 tablet 07/24/20 Following Prescriptions Were Given to Patient: Glimepiride [Amaryl] 2 mg PO DAILY #30 tablet Lisinopril [Zestril] 20 mg PO DAILY #30 tablet Primary Care Physician: Kathie Doctor,Out of [NON-STAFF] - Please follow up with your Primary Care Physician in: Follow-up with primary care provider within the next week Disposition: Home Minutes spent on discharge:: 35 Patient Condition:: Stable Medical Necessity - Tobacco Use Smoking Status: Former smoker - Has not smoked since the age of 16 Tobacco Use: Chew - Chews about half a can per day Meaningful Use Info Meaningful Use Diagnoses (Choose all that apply): None applicable
== END 2020-07-24 15:55 | disposition home or self-care (01) ==
LOC: ED 09:47 → PCU 10:04
PROVIDERS: Admitting Provider Internal Medicine; Emergency Provider Emergency Medicine; Visit Provider Internal Medicine
DX: J44.9 Chronic obstructive pulmonary disease, unspecified (principal); E11.65 Type 2 diabetes mellitus with hyperglycemia; I10 Essential (primary) hypertension; I45.10 Unspecified right bundle-branch block; G89.29 Other chronic pain; R07.9 Chest pain, unspecified; F17.220 Nicotine dependence, chewing tobacco, uncomplicated; Z79.899 Other long term (current) drug therapy; Z79.84 Long term (current) use of oral hypoglycemic drugs; E87.1 Hypo-osmolality and hyponatremia; R79.89 Other specified abnormal findings of blood chemistry; R94.31 Abnormal electrocardiogram [ECG] [EKG]
CPT/HCPCS: 36415; 71045; 80053; 82962; 84484; 85025; 85379; 87426; 87804; 93005; 93017; 93350; 99218; 99285; J7040; Q9957; A4216; C8928; G0378

== ENCOUNTER 2021-01-02 08:27 | Emergency (ER) | payer MEDICAID, SELFPAY ==
[2021-01-02 08:28] VITALS: BP 170/101; PULSE 89; RESP 16; TEMP 36.9; O2SAT 98; BMI 34.5
--- NOTE | 2021-01-02 09:24 | EKG12_ITS ---
Test Reason : Blood Pressure : / mmHG Vent. Rate : 073 BPM Atrial Rate : 073 BPM P-R Int : 140 ms QRS Dur : 148 ms QT Int : 450 ms P-R-T Axes : 052 -22 -04 degrees QTc Int : 495 ms Normal sinus rhythm Right bundle branch block Abnormal ECG Confirmed by INA BROWN, MARY ([id number]), legal editor ARCHIE COON ([id number]) on 01/04/2021 8:37:40 AM Referred By: HODAN/PAIGE Confirmed By:MARY BUCKLEY MD
[2021-01-02] MEDS: 0.9% Normal Saline 1,000 ML 1000 ML IV (09:44)
[2021-01-02 09:50] LABS: Absolute Lymphocyte Count 1.02 X10^3/uL (0.83-4.51); Absolute Neutrophil Count 4.6 X10^3/uL (2.0-7.7); Basophil# 0.04 X10^3/uL; Basophil% 0.6 % (0-1); Eosinophil# 0.12 X10^3/uL; Eosinophils% 1.9 % (0-5); Hematocrit 41.2 % (40-54); Hemoglobin 14.6 g/dL (13.0-16.5); Lymphocyte # 1.02 X10^3/ul (0.83-4.51); Mean Corp Hgb Conc 35.4 g/dL (32-36); Mean Corpuscular Hgb 31.7 pg (27.0-32.0); Mean Corpuscular Volume 89.4 fL (80-94); Mean Platelet Vol. 9.8 fl (6.2-12.0); Monocyte# 0.58 X10^3/uL; Monocyte% 9.1 % (0-10); NRBC Flagged by Analyzer 0 % (0-5); Neutrophil # 4.59 X10^3/uL (2.7-7.7); Neutrophil % 72.1 % (47-70); Platelet Count 181 K/mm3 (150-450); RBC Distribution Width SD 38.8 fl (35.1-43.9); Red Blood Count 4.61 M/mm3 (4.6-6.2); White Blood Count 6.4 K/mm3 (4.4-11.0)
[2021-01-02] MEDS: Ondansetron 4 MG/2 ML Vial IV ×2 (09:50→11:15)
[2021-01-02 10:11] LABS: ALB/GLOB Ratio 0.7 RATIO (0.9-2.4); AST(SGOT) 16 U/L (15-37); Alanine Aminotransfer ALT/SGPT 25 U/L (16-61); Albumin, Serum 2.9 g/dL (3.2-5.0); Alkaline Phosphatase 55 U/L (45-117); Anion Gap 11 (5-15); BUN 11 mg/dL (7-18); BUN/Creat Ratio 11.8 RATIO (10-20); Calcium,Total 8.1 mg/dL (8.5-10.1); Chloride 95 mmol/L (98-107); Creatinine, Serum 0.93 mg/dL (0.70-1.30); EST Glomerular Filtration Rate 90 mL/min (>60); Est Glom Filt Rate - Afr Amer 108 mL/min (>60); Estimated Creatinine Clearance 99.67 ml/min; Globulin 3.9 g/dL (2.2-4.2); Glucose 330 mg/dL (74-106); Lipase 112 U/L (73-393); Potassium 4.3 mmol/L (3.5-5.1); Protein, Total 6.8 g/dL (6.4-8.2); Sodium Level 133 mmol/L (136-145); Troponin-I HS 21 pg/mL (3.0-78.0)
--- NOTE | 2021-01-02 10:12 | EX.ED.DYSGE1 ---
HPI History of Present Illness Chief Complaint: Nausea/Vomiting Informant: patient Narrative Narrative: Patient is a 55-year-old male with history of hypertension, COPD, diabetes mellitus type 2 and chronic chest pain presenting with lightheadedness, fatigue and vomiting. Patient states his symptoms started last day. He notes that were exacerbated by walking. He denies any associate abdominal pain and has been having normal bowel movements. Denies any black or blood in the stool. He feels that he is having a difficult time taking a deep breath today and this does feel different than his normal COPD. He denies any swelling of his legs. He has been having urinary frequency for the past 2 to 3 weeks. [place] any associate testicular pain. His daughter had a headache and was tested for Covid this week but she was negative. Patient is not had any known sick contacts and has not had his Covid vaccine. He does have a history of vertigo but states this feels different. He denies any room spinning sensation. No reported fever. No other complaints at this time. [facility] Medical History (Updated 01/02/21 @ 13:[address] Jessi Donahue, ) Diabetes Hypertension Neuropathy Home Medications metformin 1,000 mg PO BID 01/30/17 [History Last Taken 07/23/20] gabapentin 600 mg PO TID 05/18/19 [History Last Taken 07/23/20] Ropinirole ER 1 mg PO QHS 05/30/19 [History Last Taken 07/23/20] albuterol sulfate 1 - 2 puff INHALATION Q4H PRN PRN #1 inhaler 01/03/20 [Rx Last Taken Unknown] cyclobenzaprine 10 mg PO TID PRN PRN 05/14/20 [History Last Taken 07/23/20] simvastatin 10 mg PO DAILY 05/14/20 [History Last Taken 07/23/20] glimepiride 2 mg PO DAILY #30 tab 07/24/20 [Rx Last Taken Unknown] lisinopril 20 mg PO DAILY #30 tablet 07/24/20 [Rx Last Taken Unknown] ondansetron 4 mg PO Q8H PRN #14 tab 01/02/21 [Rx Last Taken Unknown] Allergy/AdvReac Type Severity Reaction Status Date / Time aspirin Allergy Other Verified 01/02/21 08:29 Social History Smoking Status: Former smoker ROS ROS ED Constitutional Constitutional ED: Reports fatigue and other Details: lightheaded ; Denies chills or fever(s) Eyes Eyes: Denies blurry vision or change in vision ENT ENT ED: Denies ear pain, rhinorrhea or sore throat Cardiovascular Cardiovascular: Reports chest pain; Denies palpitations or racing heartbeat Respiratory/Chest Respiratory/Chest: Reports dyspnea; Denies cough or dyspnea on exertion Gastrointestinal Gastrointestinal: Reports nausea and vomiting; Denies abdominal pain, constipation or diarrhea Genitourinary Genitourinary ED: Reports urinary frequency; Denies dysuria or hematuria Musculoskeletal Musculoskeletal: Denies myalgias Integumentary Denies rash Neurologic Neurologic: Reports weakness; Denies headache(s) Psychiatric Psychiatric: Denies anxiety or depression EXAM Physical Exam Const Vital Signs: 01/02/21 08:28 01/02/21 11:01 01/02/21 11:16 Temperature 98.4 F Temperature Source Temporal Pulse Rate 89 72 Pulse Rate [Lying] 75 Pulse Rate [Sitting] 81 Pulse Rate [Standing] 88 Respiratory Rate 16 14 Blood Pressure 170/101 H 132/95 H Blood Pressure [Lying] 155/98 H Blood Pressure [Sitting] 147/91 H Blood Pressure [Standing] 145/94 H Blood Pressure Mean 124 107 Blood Pressure Mean [Lying] 117 Blood Pressure Mean [Sitting] 109 Blood Pressure Mean [Standing] 111 Pulse Ox 98 95 Oxygen Delivery Method Room Air Room Air 01/02/21 13:26 Temperature Temperature Source Pulse Rate 71 Pulse Rate [Lying] Pulse Rate [Sitting] Pulse Rate [Standing] Respiratory Rate 15 Blood Pressure 154/90 H Blood Pressure [Lying] Blood Pressure [Sitting] Blood Pressure [Standing] Blood Pressure Mean Blood Pressure Mean [Lying] Blood Pressure Mean [Sitting] Blood Pressure Mean [Standing] Pulse Ox 97 Oxygen Delivery Method Positive well nourished and well developed General Appearance ED: well developed HEENT Reports TM's clear and moist mucous membranes Negative for tenderness Tympanic Membrane ED: Yes TM's clear Eyes PERRL and EOMs intact bilaterally Eyes Narrative: No nystagmus on exam Neck no lymphadenopathy, supple and no JVD Chest Wall inspection of chest normal Resp normal respiratory effort and clear to auscultation bilaterally Auscultation: Negative for wheezes Cardio regular rate, regular rhythm and no murmurs GI normal to inspection, nondistended, normoactive bowel sounds and non-tender Palpation: soft Back/Spine no CVA tenderness Neuro oriented x3 and CN's II-XII intact bilaterally Sensorium / Orientation: alert Motor Exam: Negative for general weakness Psych mental status grossly normal Skin no rashes or lesions noted and no wounds MDM MDM MDM Narrative Medical decision making narrative: Patient evaluated for dizziness, lightheadedness, fatigue and vomiting. He appears nontoxic in no acute distress. His vital signs are significant only for mild hypertension. Exam is pretty benign. Sodium is mildly low at 133 however his kidney function is normal with a creatinine of 0.93. CBC is normal. Covid test is negative. Urinalysis is remarkable for dehydration with ketones of 150. Patient is given a liter of IV fluids. Orthostatic vital signs were checked which are normal. Patient's troponin is normal as well as his EKG. I did check a CT of abdomen pelvis given that he is having vomiting and mild discomfort with breathing in his abdomen. This is negative for any acute process. At this time I think patient is stable for outpatient follow-up. He is given Zofran in the ER with improvement of his symptoms. We discharged home with a course of Zofran. He is counseled on return precautions and need to follow-up with his primary care doctor. He is instructed to hold his lisinopril tonight because of his dehydration and resume it after 24 hours. Lab Data Attestation: I reviewed the patient's lab results. Labs: Laboratory Results - last 24 hr 01/02/21 01/02/21 01/02/21 09:40 09:40 10:15 WBC 6.4 RBC 4.61 Hgb 14.6 Hct 41.2 MCV 89.4 MCH 31.7 MCHC 35.4 RDW Std Deviation 38.8 RDW Coeff of Shanel 12.0 Plt Count 181 MPV 9.8 Immature Gran % (Auto) 0.300 Neut % (Auto) 72.1 H Lymph % (Auto) 16.0 L [place] % (Auto) 9.1 Eos % (Auto) 1.9 Baso % (Auto) 0.6 Absolute Neuts (auto) 4.6 Absolute Lymphs (auto) 1.02 Nucleated RBC % 0 Sodium 133 L Potassium 4.3 Chloride 95 L Carbon Dioxide 27.0 Anion Gap 11 BUN 11 Creatinine 0.93 Estim Creat Clear Calc 99.67 Est GFR (MDRD) Af Amer 108 Est GFR (MDRD) Non-Af 90 BUN/Creatinine Ratio 11.8 Glucose 330 H Calcium 8.1 L Total Bilirubin 1.20 H AST 16 ALT 25 Alkaline Phosphatase 55 Troponin I High Sens 21 Total Protein 6.8 Albumin 2.9 L Globulin 3.9 Albumin/Globulin Ratio 0.7 L Lipase 112 Urine Color Yellow Urine Clarity Clear Urine pH 6.0 Ur Specific [place] 1.015 Urine Protein 15 H Urine Glucose (UA) 1000 H Urine Ketones 150 A* Urine Occult Blood Negative Urine Nitrite Negative Urine Bilirubin Negative Urine Urobilinogen Normal Ur Leukocyte Esterase Negative Urine RBC 0 SEEN Urine WBC 0 SEEN Ur Squamous Epith Cells 0-5 SEEN Urine Bacteria RARE Urine Mucus 0 SEEN Radiography Diagnostic Testing: Radiology Impression Abdomen/Pelvis CT 01/02/21 11:08 IMPRESSION: No acute abnormality. Sigmoid diverticulosis without diverticulitis. Electronically Signed: Junior Iqbal MD at 12:10 EDT Tel , Service support , Rhythm Strip Rhythm Strip: Sinus Rhythm Rate: 73 Ectopy: None EKG Initial EKG: Attestation: I personally reviewed and interpreted this EKG as follows: Interpretation: Sinus Rhythm and RBBB Comments: Normal sinus rhythm at a rate of 73 Left axis deviation Right bundle branch block Normal ST segments No change prior to prior EKG on 07/24/2020 Discharge Plan Triage Chief Complaint: Nausea/Vomiting ED Provider: Jessi Donahue Dx/Rx/DC Orders Clinical Impression: Acute dehydration, Dizziness, Nausea & vomiting Instructions: Dehydration, ED Diet for Vomiting or ... Prescriptions: New ondansetron 4 mg tablet,disintegrating 4 mg PO Q8H PRN (Reason: nausea and vomiting) Qty: 14 RF: 0 No Action metformin 500 MG tablet 1,000 mg PO BID RF: 0 gabapentin 600 MG tablet 600 mg PO TID RF: 0 Ropinirole ER 1 mg PO QHS RF: 0 albuterol sulfate 1 INHALER inhaler 1 - 2 puff inhalation Q4H PRN PRN (Reason: Wheezing) Qty: 1 RF: 0 cyclobenzaprine 10 MG tablet 10 mg PO TID PRN PRN (Reason: Muscle Spasm) RF: 0 simvastatin 10 MG tablet 10 mg PO DAILY RF: 0 glimepiride 2 MG tablet 2 mg PO DAILY Qty: 30 RF: 0 lisinopril 20 MG tablet 20 mg PO DAILY Qty: 30 RF: 0 Primary Care Provider: Care Physician,No Primary Referrals: Care Physician,No Primary [Primary Care Provider] - Activity Restrictions/Additional Instructions: Hold your lisinopril for 24 hours. Your work-up was normal except for signs of dehydration. Drink lots of fluids, hold off on coffee and soda. Please follow-up with your primary care doctor later this week or next week for recheck. Disposition Disposition: Home, Self Care Discharge Date/Time: 01/02/21 13:27
[2021-01-02 10:26] LABS: Mucous, Urine 0 SEEN /hpf (<or=2+); Red Blood Cells-Urine 0 SEEN /hpf (0-5); White Blood Cells 0 SEEN /hpf (0-5)
[2021-01-02 10:33] LABS: Color, Urine Yellow (Yellow); Glucose, Dipstick 1000 mg/dl (Normal); Leukocyte Esterase-Dipstick Negative /ul (Negative); Nitrite-Dipstick Negative (Negative); Occult Blood-Urine Negative /ul (Negative); Protein-Dipstick 15 mg/dl (Negative); Specific Gravity, Urine 1.015 (1.002-1.030); Urine Bilirubin Dipstick Negative (Negative); Urine Clarity Clear (Clear); Urine Urobilinogen Normal (Normal)
[2021-01-02 10:43] LABS: Bacteria RARE /hpf (None Seen); Ketone-Dipstick 150 mg/dl (Negative); Squamous Epithelial Cells - UA 0-5 SEEN /hpf (0-5)
[2021-01-02 11:01] VITALS: BP 145/94; BP 147/91; BP 155/98; PULSE 75; PULSE 81; PULSE 88
--- NOTE | 2021-01-02 11:08 | CT_ITS ---
STUDY: CT ABDOMEN AND PELVIS WITH CONTRAST REASON FOR EXAM: Male, 55 years old. abd pain, nausea and vomiting RADIATION DOSAGE (If Supplied By Facility): CTDIvol = ( 18.5 ) mGy, DLP = ( 1327.25 ) mGycm TECHNIQUE: Transaxial images were obtained from the dome of the diaphragm to the symphysis pubis without oral contrast. IV 100mL Isovue-300 was administered. Sagittal and coronal images were reconstructed. Individualized dose optimization techniques were used for this CT. COMPARISON: None. FINDINGS: The visualized lung bases are unremarkable. The visualized portions of the heart are within normal limits. Normal liver. Normal gallbladder and extrahepatic biliary system. Normal spleen. Normal pancreas. Normal bilateral adrenal glands. Normal right kidney. Normal left kidney. Normal visualized stomach. Normal small intestine. There are multiple colonic diverticula consistent with diverticulosis. There is non-visualization of the appendix. Normal abdominal aorta. Normal inferior vena cava. Normal retroperitoneum. Normal urinary bladder. There is a small umbilical hernia containing fat. Normal osseous structures. CT/Abdomen/Pelvis W IV Cont ONLY IMPRESSION: No acute abnormality. Sigmoid diverticulosis without diverticulitis. Electronically Signed: Junior Iqbal MD at 12:10 EDT Tel , Service support ,
[2021-01-02 11:16] VITALS: BP 132/95; PULSE 72; RESP 14; O2SAT 95
--- NOTE | 2021-01-02 12:18 | CM.ED ---
Referral Source: Case Find Referral Reason: No Primary Care Physician (PCP) EMANI reviewed chart and noted that patient has no PCP. EMANI met with patient and he indicated his MD is Dr. Mcfarland in [place]. EMANI also provided patient with handout ?Where to go When?. No other issues or concerns voiced at this time. SW remains available for any additional needs. Plan: Provided patient with PCP information Natalia JASSO
[2021-01-02 13:26] VITALS: BP 154/90; PULSE 71; RESP 15; O2SAT 97
== END 2021-01-02 13:27 | disposition home or self-care (01) ==
PROVIDERS: Emergency Provider Emergency Medicine
DX: E86.0 Dehydration (principal); R42 Dizziness and giddiness; R11.2 Nausea with vomiting, unspecified; I10 Essential (primary) hypertension; J44.9 Chronic obstructive pulmonary disease, unspecified; E11.40 Type 2 diabetes mellitus with diabetic neuropathy, unspecified; Z79.84 Long term (current) use of oral hypoglycemic drugs; Z79.899 Other long term (current) drug therapy; Z87.891 Personal history of nicotine dependence
CPT/HCPCS: 74177; 80053; 81001; 83690; 84484; 85025; 87426; 93005; 96361; 96374; 96376; 99284; J7030; Q9967; A4216; J2405

== ENCOUNTER 2021-01-26 07:56 | Emergency (ER) | payer MEDICAID, SELFPAY ==
[2021-01-26 07:57] VITALS: BP 128/109; PULSE 86; RESP 20; TEMP 37.1; O2SAT 97; BMI 35.2
[2021-01-26 08:02] VITALS: BP 128/109; BP 144/80; PULSE 86; RESP 20; TEMP 37.1; O2SAT 97
--- NOTE | 2021-01-26 08:14 | EDS_ITS ---
HPI History of Present Illness Chief Complaint: Back Informant: patient Onset/Context/Timing Onset: Days (2) Chronic pain exacerbated by: ? sitting at new job -- no acute injuries Timing: Continuous Quality: Aching Location: Lumbar Current Severity: Severe Maximum Severity: Severe Worsened by: improves with Movement Relieved by: Remaining Still Associated Symptoms Associated Symptoms: Negative for Numbness, Tingling, Radiation to Right Leg, Radiation to Left Leg, Abdominal Pain, Dysuria, Unable to Ambulate, Unable to Transfer, Urinary Retention, Urinary Incontinence, Constipation and Fecal Incontinence Narrative Narrative: Patient states he has a history of chronic low back pain has been told he had disc issues he does not know the specifics. He has had a surgery where they tried to burn nerve endings and he states it did not work. He has had no other back surgeries and that was not recent. He has a new job that started around 2 weeks ago, and he has been sitting a lot, it is at [employer]. He was told in the past that sitting a lot could make his back worse. He denies any bowel or bladder dysfunction nor radiation to the lower extremities, no acute worsening of the pain, it has been gradual and just basically excruciating for the past 2 days. He has chronic numbness in both feet, due to peripheral neuropathy that he has had for years and that is unchanged. No weakness in the legs. EMS brought him in his blood sugar is over 400. He states he is on diabetes pills and he received a prescription for a box of Lantus pens from the emergency department once that he still uses but is on no other insulin. Prior similar symptoms: Yes and With Prior Back Pain [facility] Medical History ACL tear Biceps muscle tear Chronic pain Diabetes Hypertension Meniscal injury Neuropathy Home Medications metformin 1,000 mg PO BID 01/30/17 [History Last Taken 07/23/20] gabapentin 600 mg PO TID 05/18/19 [History Last Taken 07/23/20] Ropinirole ER 1 mg PO QHS 05/30/19 [History Last Taken 07/23/20] cyclobenzaprine 10 mg PO TID PRN PRN 05/14/20 [History Last Taken 07/23/20] simvastatin 10 mg PO DAILY 05/14/20 [History Last Taken 07/23/20] glimepiride 2 mg PO DAILY #30 tab 07/24/20 [Rx Last Taken Unknown] lisinopril 20 mg PO DAILY #30 tablet 07/24/20 [Rx Last Taken Unknown] ondansetron 4 mg PO Q8H PRN #14 tab 01/02/21 [Rx Last Taken Unknown] fluticasone propion-salmeterol [Advair Diskus] 1 inh INHALATION BID 01/26/21 [History Last Taken Unknown] hydrocodone-acetaminophen 1 tab PO Q4H PRN PRN 2 Days #10 tablet 01/26/21 [Rx Last Taken Unknown] insulin glargine [Lantus Solostar U-100 Insulin] 10 unit SUBCUT DAILY 01/26/21 [History Last Taken 01/26/21] Allergy/AdvReac Type Severity Reaction Status Date / Time aspirin Allergy BLODDY NOSE Verified 01/26/21 08:00 Social History Smoking Status: Former smoker ROS ROS ED Constitutional Constitutional ED: Denies chills or fever(s) Gastrointestinal Gastrointestinal: Denies abdominal pain, constipation, fecal incontinence, nausea or vomiting Genitourinary Genitourinary ED: Reports other Details: no urinary retention ; Denies abdominal discomfort or urinary incontinence Musculoskeletal Musculoskeletal: Reports as per HPI and back pain; Denies neck pain Integumentary Denies rash or wounds Neurologic Neurologic: Denies headache(s), paresthesias or weakness EXAM Physical Exam Const Vital Signs: 01/26/21 07:57 01/26/21 08:02 Temperature 98.7 F 98.7 F Temperature Source Oral Oral Pulse Rate 86 86 Respiratory Rate 20 H 20 H Blood Pressure 128/109 H 128/109 H Blood Pressure Mean 115 115 Pulse Ox 97 97 Oxygen Delivery Method Room Air Room Air Positive well nourished and well developed General Appearance ED: well developed and NAD HEENT Negative for trauma or tenderness Eyes PERRL and EOMs intact bilaterally Neck full ROM and supple GI normal to inspection, nondistended, normoactive bowel sounds, soft to palpation and non-tender Back/Spine normal to inspection Thoracic Spine / Upper Back: paraspinal muscle tenderness Lumbar Spine / Lower Back: ROM limited and straight leg raise negative bilaterally Extremity normal to inspection, full ROM and no pedal edema Neuro oriented x3 and no sensory deficits noted Sensorium / Orientation: alert Motor Exam: strength 5/5 throughout and clonus absent Deep Tendon Reflexes: Rt Patellar (L4): 2+, Lt Patellar (L4): 2+, Rt Ankle (S1): 2+ and Lt Ankle (S1): 2+ Deep Tendon Reflexes Back: Rt Patellar (L4): 2+, Lt Patellar (L4): 2+, Rt Ankle (S1): 2+ and Lt Ankle (S1): 2+ Plantar Reflex: Downgoing: bilateral Psych mental status grossly normal and thought process normal Skin no rashes or lesions noted and no wounds MDM MDM MDM Narrative Medical decision making narrative: [facility] report shows no recent narcotics in the past 2 years. He was given a short course of Rozel after a dose of morphine here, a work note at his request, and I gave him a dose of short acting insulin to get his blood sugars down and with regards to his [id number] diabetes I recommend close outpatient follow-up with his doctor for that and his back pain as well. Discharge Plan Triage Chief Complaint: Back ED Provider: Richard Diaz Dx/Rx/DC Orders Clinical Impression: Acute exacerbation of chronic low back pain, Hyperglycemia due to type 2 diabetes mellitus Instructions: ED Back Pain (Acute or Chronic), ED Diabetic Hyperglycemia Prescriptions: New hydrocodone-acetaminophen [hydrocodone-acetaminophen] 1 TABLET tablet 1 tab PO Q4H PRN PRN (Reason: Pain) 2 Days Qty: 10 RF: 0 No Action metformin 500 MG tablet 1,000 mg PO BID RF: 0 gabapentin 600 MG tablet 600 mg PO TID RF: 0 Ropinirole ER 1 mg PO QHS RF: 0 cyclobenzaprine 10 MG tablet 10 mg PO TID PRN PRN (Reason: Muscle Spasm) RF: 0 simvastatin 10 MG tablet 10 mg PO DAILY RF: 0 glimepiride 2 MG tablet 2 mg PO DAILY Qty: 30 RF: 0 lisinopril 20 MG tablet 20 mg PO DAILY Qty: 30 RF: 0 ondansetron 4 mg tablet,disintegrating 4 mg PO Q8H PRN (Reason: nausea and vomiting) Qty: 14 RF: 0 fluticasone propion-salmeterol [Advair Diskus] 100-50 mcg/dose Blister With Device 1 inh INHALATION BID RF: 0 Lantus Solostar U-100 Insulin 100 unit/mL (3 mL) insulin pen 10 unit SUBCUT DAILY RF: 0 Stand Alone Forms: ED Work / School Excuse Primary Care Provider: Care Physician,No Primary Referrals: Care Physician,No Primary [Primary Care Provider] - Doctor,Your [STAFF PHYSICIAN] - As soon as possible Disposition Disposition: Home, Self Care
[2021-01-26] MEDS: Insulin Lispro 100 UNIT/ML INSULN.PEN 20 UNIT SC (08:24)
[2021-01-26] MEDS: Ondansetron ODT 4 MG Tablet 8 MG PO (08:25)
[2021-01-26] MEDS: Morphine 4 MG/ML Syringe IM (08:25)
[2021-01-26 08:58] VITALS: BP 123/76; PULSE 87; RESP 16; TEMP 37.1; O2SAT 96
== END 2021-01-26 09:00 | disposition home or self-care (01) ==
PROVIDERS: Emergency Provider Emergency Medicine
DX: M54.50 Low back pain, unspecified (principal); G89.29 Other chronic pain; I10 Essential (primary) hypertension; E11.65 Type 2 diabetes mellitus with hyperglycemia; E11.40 Type 2 diabetes mellitus with diabetic neuropathy, unspecified; Z79.4 Long term (current) use of insulin; Z79.84 Long term (current) use of oral hypoglycemic drugs; Z79.899 Other long term (current) drug therapy; Z87.891 Personal history of nicotine dependence
CPT/HCPCS: 96372; 99284

== ENCOUNTER 2021-02-18 11:13 | Emergency (ER) | payer MEDICAID, SELFPAY ==
[2021-02-18 11:14] VITALS: BP 175/110; PULSE 111; RESP 16; TEMP 36.1; BMI 34.5
--- NOTE | 2021-02-18 12:01 | EX.ED.DYSGE1 ---
HPI History of Present Illness Chief Complaint: Rash Informant: patient Onset/Context/Timing Onset: Weeks Context: Gradual Onset Timing: Continuous Current Severity: Mild Maximum Severity: Mild Narrative Narrative: 55-year-old diabetic male with hypertension. He states that near the head of his penis he has had burning and itching and white discharge. He has been on no recent antibiotics. He has never had this before but has had the symptoms now for several weeks. Denies any dysuria. He is circumcised. Prior similar symptoms: No Recent Illness/Hospitalization: No [facility] Medical History ACL tear Biceps muscle tear Chronic pain Diabetes Hypertension Meniscal injury Neuropathy Home Medications metformin 1,000 mg PO BID 01/30/17 [History Last Taken 07/23/20] gabapentin 600 mg PO TID 05/18/19 [History Last Taken 07/23/20] Ropinirole ER 1 mg PO QHS 05/30/19 [History Last Taken 07/23/20] cyclobenzaprine 10 mg PO TID PRN PRN 05/14/20 [History Last Taken 07/23/20] simvastatin 10 mg PO DAILY 05/14/20 [History Last Taken 07/23/20] glimepiride 2 mg PO DAILY #30 tab 07/24/20 [Rx Last Taken Unknown] lisinopril 20 mg PO DAILY #30 tablet 07/24/20 [Rx Last Taken Unknown] ondansetron 4 mg PO Q8H PRN #14 tab 01/02/21 [Rx Last Taken Unknown] fluticasone propion-salmeterol [Advair Diskus] 1 inh INHALATION BID 01/26/21 [History Last Taken Unknown] insulin glargine [Lantus Solostar U-100 Insulin] 10 unit SUBCUT BID 01/26/21 [History Last Taken 01/26/21] clotrimazole 1 applic TOPICAL BID 14 Days #30 g 02/18/21 [Rx Last Taken Unknown] Allergy/AdvReac Type Severity Reaction Status Date / Time aspirin Allergy BLODDY NOSE Verified 02/18/21 11:14 Social History Smoking Status: Former smoker ROS ROS ED ROS Narrative Denies recent illness. Review of Systems ROS Unobtainable: Denies due to encephalopathy Constitutional Constitutional ED: Denies fever(s) Eyes Eyes: Denies change in vision ENT ENT ED: Denies ear pain Cardiovascular Cardiovascular: Denies chest pain Respiratory/Chest Respiratory/Chest: Denies dyspnea Gastrointestinal Gastrointestinal: Denies abdominal pain Genitourinary Genitourinary ED: Denies dysuria Musculoskeletal Musculoskeletal: Denies myalgias Integumentary Denies rash Neurologic Neurologic: Denies headache(s) Psychiatric Psychiatric: Denies depression Endocrine Endocrinology: Denies polyuria Allergic/Immunologic Allergic/Immunologic ED: Denies urticaria EXAM Physical Exam Narrative Exam Narrative: 55-year-old male no acute distress vital signs are stable and afebrile. Initial blood pressure is elevated 175/110. Neck heart lung abdominal exams unremarkable external exam circumcised male has redness at the is just over the head of his penis and shaft consistent with a yeast infection. Mild tender there is minimal redness. Const Vital Signs: 02/18/21 11:14 Temperature 97.0 F L Temperature Source Temporal Pulse Rate 111 H Respiratory Rate 16 Blood Pressure 175/110 H Blood Pressure Mean 131 Positive well nourished, well developed and obese; Negative for cachectic, contractures or unkempt General Appearance ED: well developed and NAD; Negative for unkempt, cachectic, contractures or pallor Nutritional Appearance: obese; Negative for cachectic HEENT Reports moist mucous membranes Negative for trauma or tenderness Eyes PERRL and EOMs intact bilaterally Neck no lymphadenopathy, supple and no JVD General: Negative for tenderness Chest Wall inspection of chest normal and palpation of chest normal Resp normal respiratory effort and clear to auscultation bilaterally Auscultation: Negative for rales, rhonchi or wheezes Cardio regular rate, regular rhythm, S1 normal heart sound, S2 normal heart sound and no murmurs GI normal to inspection, nondistended, normoactive bowel sounds, non-tender, non-distended and no masses Auscultation: normoactive bowel sounds Palpation: soft; Negative for tender, guarding or rebound tenderness present Narrative: Mild redness at the proximal head of the penis and penile shaft consistent with a yeast infection. Back/Spine no CVA tenderness Extremity normal to inspection General Extremety ED: Negative for edema or tenderness General Extremity: Negative for edema Neuro oriented x3 and No CN's II-XII intact bilaterally Sensorium / Orientation: alert; Negative for lethargic or stuporous Motor Exam: strength 5/5 throughout Psych mental status grossly normal Appearance: Negative for unkempt Mood & Affect: Negative for depressed or tearful Skin no wounds General Skin Exam: Negative for jaundice or pallor MDM MDM MDM Narrative Medical decision making narrative: History exam is consistent with a penile yeast infection. Will be placed on Lotrimin cream. Instructed to keep the areas dry and clean. Follow-up if not improving. Discharge Plan Triage Chief Complaint: Rash ED Provider: Bruno Valverde Dx/Rx/DC Orders Clinical Impression: Skin yeast infection Instructions: ED Lala Skin Infection (Adult) Prescriptions: New clotrimazole 1 % cream 1 applic topical BID 14 Days Qty: 30 RF: 0 No Action metformin 500 MG tablet 1,000 mg PO BID RF: 0 gabapentin 600 MG tablet 600 mg PO TID RF: 0 Ropinirole ER 1 mg PO QHS RF: 0 cyclobenzaprine 10 MG tablet 10 mg PO TID PRN PRN (Reason: Muscle Spasm) RF: 0 simvastatin 10 MG tablet 10 mg PO DAILY RF: 0 glimepiride 2 MG tablet 2 mg PO DAILY Qty: 30 RF: 0 lisinopril 20 MG tablet 20 mg PO DAILY Qty: 30 RF: 0 ondansetron 4 mg tablet,disintegrating 4 mg PO Q8H PRN (Reason: nausea and vomiting) Qty: 14 RF: 0 fluticasone propion-salmeterol [Advair Diskus] 100-50 mcg/dose Blister With Device 1 inh INHALATION BID RF: 0 Lantus Solostar U-100 Insulin 100 unit/mL (3 mL) insulin pen 10 unit SUBCUT BID RF: 0 Primary Care Provider: Care Physician,No Primary Referrals: Enoch Carmichael MD [STAFF PHYSICIAN] - 10-14 Days if not better Care Physician,No Primary [Primary Care Provider] - Activity Restrictions/Additional Instructions: Keep affected area dry and clean. Apply antifungal cream to this area 2-3 times a day till gone. Disposition Disposition: Home, Self Care
[2021-02-18 12:10] VITALS: BP 164/99; PULSE 97
== END 2021-02-18 12:12 | disposition home or self-care (01) ==
PROVIDERS: Emergency Provider Emergency Medicine
DX: B37.2 Candidiasis of skin and nail (principal); I10 Essential (primary) hypertension; E11.40 Type 2 diabetes mellitus with diabetic neuropathy, unspecified; Z79.4 Long term (current) use of insulin; Z79.84 Long term (current) use of oral hypoglycemic drugs; Z79.899 Other long term (current) drug therapy; Z87.891 Personal history of nicotine dependence
CPT/HCPCS: 99282

== ENCOUNTER 2021-02-22 07:14 | Emergency (ER) | payer MEDICAID, SELFPAY ==
[2021-02-22 07:15] VITALS: BP 173/119; PULSE 63; RESP 17; TEMP 35.5; O2SAT 97; BMI 34.5
--- NOTE | 2021-02-22 07:27 | RAD_ITS ---
EXAM: XR Chest, 1 View CLINICAL INDICATION: 55 years old, Male; cxr TECHNIQUE: Frontal view of the chest. This report was created using [employer] report generation technology. COMPARISON: XR Chest dated 07/24/2020 FINDINGS: Lungs and pleural spaces: Mild fibrotic appearing infiltrates in the lung bases. No pneumothorax. No effusion. Heart: Unremarkable. Cardiac silhouette not enlarged. Mediastinum: Central airways and mediastinal contour are unremarkable. Bones/joints: Unremarkable. Soft tissues: Unremarkable. RAD/Chest 1 View (Portable) IMPRESSION: Mild fibrotic appearing infiltrates in the lung bases. These are unchanged. Electronically Signed: Enoch De Paz MD at 8:01 EST Tel , Service support ,
--- NOTE | 2021-02-22 07:28 | EDS_ITS ---
HPI History of Present Illness Chief Complaint: Cold Sx Narrative Narrative: Patient presents with 1 week history of cough congestion loss of taste and increased weakness and tiredness. He is not vaccinated for Covid. He has no known fevers. He has no abdominal pain. No diarrhea or any GI symptoms. No headache. He has some myalgias. [facility] Medical History ACL tear Biceps muscle tear Chronic pain Diabetes Hypertension Meniscal injury Neuropathy Home Medications metformin 1,000 mg PO BID 01/30/17 [History Last Taken 07/23/20] gabapentin 600 mg PO TID 05/18/19 [History Last Taken 07/23/20] Ropinirole ER 1 mg PO QHS 05/30/19 [History Last Taken 07/23/20] cyclobenzaprine 10 mg PO TID PRN PRN 05/14/20 [History Last Taken 07/23/20] simvastatin 10 mg PO DAILY 05/14/20 [History Last Taken 07/23/20] glimepiride 2 mg PO DAILY #30 tab 07/24/20 [Rx Last Taken Unknown] lisinopril 20 mg PO DAILY #30 tablet 07/24/20 [Rx Last Taken Unknown] ondansetron 4 mg PO Q8H PRN #14 tab 01/02/21 [Rx Last Taken Unknown] fluticasone propion-salmeterol [Advair Diskus] 1 inh INHALATION BID 01/26/21 [History Last Taken Unknown] insulin glargine [Lantus Solostar U-100 Insulin] 10 unit SUBCUT BID 01/26/21 [History Last Taken 01/26/21] clotrimazole 1 applic TOPICAL BID 14 Days #30 g 02/18/21 [Rx Last Taken Unknown] Allergy/AdvReac Type Severity Reaction Status Date / Time aspirin Allergy BLODDY NOSE Verified 02/22/21 07:17 Social History Smoking Status: Former smoker ROS ROS ED ROS Narrative Past medical history: Reviewed, includes type 2 diabetes, COPD, hypertension Medications: Reviewed Social history: Noncontributory Review of systems: All systems negative except as indicated General: No fever. Fatigue as in HPI Eyes: No visual changes ENT: Some upper airway congestion, normal voice Neck: No neck pain Cardiovascular: No chest pain Respiratory: He has a cough with subjective dyspnea. Gastrointestinal: No abdominal pain, nausea vomiting or diarrhea Genitourinary: No dysuria Musculoskeletal: Some myalgias. Skin: No rash Neurological: No memory loss, confusion or any focal weakness Psych: No recent behavioral changes Hematologic: No easy bleeding or easy bruising EXAM Physical Exam Narrative Exam Narrative: Physical exam General: Well nourished, Well developed, No Acute Distress Head: Normocephalic, Atraumatic Eyes: Conjunctiva not pale ENT: Moist mucous membranes. Some upper airway congestion Neck: Supple, Nontender, No lymphadenopathy Cardiovascular: Regular rate, Regular rhythm Respiratory: No distress, coarse bilateral breath sounds. He is speaking full sentences. He is not tachypneic. He does not appear in any distress. Abdomen: Soft, Nontender, Nondistended Back: Nontender, Normal Inspection. Negative for: CVA tenderness Extremities: Nontender, No edema Skin: Normal color, No rash Neurological: Alert, Normal Strength, Normal Sensation Psychological: Normal affect Const Vital Signs: 02/22/21 07:15 02/22/21 07:30 Temperature 96 F L Temperature Source Temporal Pulse Rate 63 Respiratory Rate 17 Respiratory Effort Normal Non-Labored Respiratory Pattern Normal Blood Pressure 173/119 H Blood Pressure Mean 137 Pulse Ox 97 Oxygen Delivery Method Room Air MDM MDM MDM Narrative Medical decision making narrative: Patient is found to have hyperglycemia. His Covid is negative. I gave him insulin and repeated his glucose that improved, he also has slight hyponatremia. This can be worked up outpatient. He otherwise appears well. I did a confirmatory PCR Covid test however it will be a few more hours till this is back, per hospital protocol he can get results texted to his phone. Otherwise I'll discharge him to follow-up with his PCP he did not take his insulin last night or this morning. He is encouraged to take his insulin as prescribed. He appears well he likely has an upper respiratory infection that is viral and does not meet criteria for antibiotics at this time.2 Lab Data Labs: Laboratory Results - last 24 hr 02/22/21 02/22/21 02/22/21 07:52 07:52 11:39 WBC 5.2 RBC 4.56 L Hgb 14.4 Hct 40.2 MCV 88.2 MCH 31.6 MCHC 35.8 RDW Std Deviation 42.1 RDW Coeff of Shanel 13.1 Plt Count 177 MPV 9.8 Immature Gran % (Auto) 0.200 Neut % (Auto) 53.9 Lymph % (Auto) 32.4 [place] % (Auto) 10.2 H Eos % (Auto) 2.3 Baso % (Auto) 1.0 Absolute Neuts (auto) 2.8 Absolute Lymphs (auto) 1.69 Nucleated RBC % 0 Sodium 128 L Potassium 4.1 Chloride 93 L Carbon Dioxide 26.0 Anion Gap 9 BUN 16 Creatinine 1.23 Estim Creat Clear Calc 75.36 Est GFR (MDRD) Af Amer 79 Est GFR (MDRD) Non-Af 65 BUN/Creatinine Ratio 13.0 Glucose 613 H* Calcium 9.3 Total Bilirubin 1.40 H AST 9 L ALT 26 Alkaline Phosphatase 58 Total Protein 7.1 Albumin 3.2 Globulin 3.9 Albumin/Globulin Ratio 0.8 L POC Glucose 477 H* Radiography Diagnostic Testing: Clinical Impression(s) from Imaging Studies Chest X-Ray 02/22/21 07:27 IMPRESSION: Mild fibrotic appearing infiltrates in the lung bases. These are unchanged. Electronically Signed: Enoch De Paz MD at 8:01 EST Tel , Service support , Discharge Plan Triage Chief Complaint: Cold Sx ED Provider: Ang Lopez Dx/Rx/DC Orders Clinical Impression: Acute upper respiratory infection, Acute hyperglycemia Instructions: High Blood Sugar (Hyperglycemia), ED Bronchitis, No Antibiotic (Adult) Prescriptions: No Action metformin 500 MG tablet 1,000 mg PO BID RF: 0 gabapentin 600 MG tablet 600 mg PO TID RF: 0 Ropinirole ER 1 mg PO QHS RF: 0 cyclobenzaprine 10 MG tablet 10 mg PO TID PRN PRN (Reason: Muscle Spasm) RF: 0 simvastatin 10 MG tablet 10 mg PO DAILY RF: 0 glimepiride 2 MG tablet 2 mg PO DAILY Qty: 30 RF: 0 lisinopril 20 MG tablet 20 mg PO DAILY Qty: 30 RF: 0 ondansetron 4 mg tablet,disintegrating 4 mg PO Q8H PRN (Reason: nausea and vomiting) Qty: 14 RF: 0 fluticasone propion-salmeterol [Advair Diskus] 100-50 mcg/dose Blister With Device 1 inh INHALATION BID RF: 0 Lantus Solostar U-100 Insulin 100 unit/mL (3 mL) insulin pen 10 unit SUBCUT BID RF: 0 clotrimazole 1 % cream 1 applic topical BID 14 Days Qty: 30 RF: 0 Primary Care Provider: [facility] Doctor,Out of Referrals: [facility] Doctor,Out of [Primary Care Provider] - 2 Days Disposition Disposition: Home, Self Care
[2021-02-22 08:04] LABS: Absolute Lymphocyte Count 1.69 X10^3/uL (0.83-4.51); Absolute Neutrophil Count 2.8 X10^3/uL (2.0-7.7); Basophil# 0.05 X10^3/uL; Eosinophil# 0.12 X10^3/uL; Eosinophils% 2.3 % (0-5); Hematocrit 40.2 % (40-54); Hemoglobin 14.4 g/dL (13.0-16.5); Lymphocyte # 1.69 X10^3/ul (0.83-4.51); Lymphocyte % 32.4 % (19-41); Mean Corp Hgb Conc 35.8 g/dL (32-36); Mean Corpuscular Hgb 31.6 pg (27.0-32.0); Mean Corpuscular Volume 88.2 fL (80-94); Mean Platelet Vol. 9.8 fl (6.2-12.0); Monocyte# 0.53 X10^3/uL; Monocyte% 10.2 % (0-10); NRBC Flagged by Analyzer 0 % (0-5); Neutrophil # 2.81 X10^3/uL (2.7-7.7); Neutrophil % 53.9 % (47-70); Platelet Count 177 K/mm3 (150-450); RBC Distribution Width CV 13.1 % (11.6-14.6); RBC Distribution Width SD 42.1 fl (35.1-43.9); Red Blood Count 4.56 M/mm3 (4.6-6.2); White Blood Count 5.2 K/mm3 (4.4-11.0)
[2021-02-22 08:27] LABS: ALB/GLOB Ratio 0.8 RATIO (0.9-2.4); AST(SGOT) 9 U/L (15-37); Alanine Aminotransfer ALT/SGPT 26 U/L (16-61); Albumin, Serum 3.2 g/dL (3.2-5.0); Alkaline Phosphatase 58 U/L (45-117); Anion Gap 9 (5-15); BUN 16 mg/dL (7-18); Calcium,Total 9.3 mg/dL (8.5-10.1); Chloride 93 mmol/L (98-107); Creatinine, Serum 1.23 mg/dL (0.70-1.30); EST Glomerular Filtration Rate 65 mL/min (>60); Est Glom Filt Rate - Afr Amer 79 mL/min (>60); Estimated Creatinine Clearance 75.36 ml/min; Globulin 3.9 g/dL (2.2-4.2); Glucose 613 mg/dL (74-106); Potassium 4.1 mmol/L (3.5-5.1); Protein, Total 7.1 g/dL (6.4-8.2); Sodium Level 128 mmol/L (136-145)
[2021-02-22] MEDS: Insulin Human 75/25 Kwickpen 20 UNIT SC (10:09)
[2021-02-22 11:46] LABS: Bedside Glucose 477 mg/dL (70-110)
[2021-02-22 12:12] VITALS: BP 142/69; PULSE 81; RESP 16; O2SAT 97
== END 2021-02-22 12:13 | disposition home or self-care (01) ==
PROVIDERS: Emergency Provider Emergency Medicine
DX: J06.9 Acute upper respiratory infection, unspecified (principal); E11.65 Type 2 diabetes mellitus with hyperglycemia; E11.40 Type 2 diabetes mellitus with diabetic neuropathy, unspecified; E87.1 Hypo-osmolality and hyponatremia; I10 Essential (primary) hypertension; J44.9 Chronic obstructive pulmonary disease, unspecified; Z79.4 Long term (current) use of insulin; Z79.84 Long term (current) use of oral hypoglycemic drugs; Z79.899 Other long term (current) drug therapy; Z87.891 Personal history of nicotine dependence
CPT/HCPCS: 36415; 71045; 80053; 82962; 85025; 87426; 87635; 99282; U0005; U0003

== ENCOUNTER 2021-04-04 12:56 | Emergency (ER) | payer MEDICAID, SELFPAY ==
[2021-04-04 12:57] VITALS: BP 181/102; PULSE 96; RESP 18; TEMP 35.5; O2SAT 97; BMI 34.5
== END 2021-04-04 15:14 | disposition left against medical advice (07) ==
LOC: ED 15:34
DX: S69.90XA Unspecified injury of unspecified wrist, hand and finger(s), initial encounter (principal)

== ENCOUNTER 2021-04-05 07:27 | Emergency (ER) | payer MEDICAID, SELFPAY ==
[2021-04-05 07:29] VITALS: BP 158/99; PULSE 85; RESP 20; TEMP 36.9; O2SAT 96; BMI 34.7
--- NOTE | 2021-04-05 07:53 | RAD_ITS ---
INDICATION: pain EXAMINATION/TECHNIQUE: X-RAY - LEFT XR Hand Min 3 Views 3 VIEWS COMPARISON: None. FINDINGS: Degenerative bone changes visualized most prominent in the carpal bones, scaphoid bone and in the first carpometacarpal joint demonstrate subtle increased density along the articular surface, subchondral cysts but no evidence of fracture plane is seen. Narrowing of the interphalangeal joint spaces is seen, no evidence of erosive changes is seen. No abnormal density visualized in the overlying soft tissues. No radiopaque foreign body seen. RAD/Hand Min 3 Views IMPRESSION: Degenerative changes, no acute osseous abnormality is seen. Electronically Signed: Miguel Hill MD at 8:28 EST Tel , Service support ,
[2021-04-05 07:57] VITALS: BP 158/99; PULSE 85; RESP 20; TEMP 36.9; O2SAT 96
--- NOTE | 2021-04-05 08:43 | EDS_ITS ---
HPI History of Present Illness Chief Complaint: Wound Narrative Narrative: Patient presenting for evaluation secondary to left hand pain. Patient reports over the course the last couple of days he has had increasing pain and redness over the dorsum of his left hand. States that it was not necessarily associated with a specific injury or breaking in the skin, but has had increased swelling and pain in the area. He had an x-ray done a couple of days ago at an outside facility but did not stay to be seen because he was nervous about Covid. Patient denies that he is having any fevers or constitutional symptoms with this. Pain is moderate worse with palpation and movement. He does have an underlying history of diabetes. Denies any history of gout. Review of systems otherwise negative. [facility] Medical History ACL tear Biceps muscle tear Chronic pain Diabetes Hypertension Meniscal injury Neuropathy Home Medications metformin 1,000 mg PO BID 01/30/17 [History Last Taken 07/23/20] gabapentin 600 mg PO TID 05/18/19 [History Last Taken 07/23/20] Ropinirole ER 1 mg PO QHS 05/30/19 [History Last Taken 07/23/20] cyclobenzaprine 10 mg PO TID PRN PRN 05/14/20 [History Last Taken 07/23/20] simvastatin 10 mg PO DAILY 05/14/20 [History Last Taken 07/23/20] glimepiride 2 mg PO DAILY #30 tab 07/24/20 [Rx Last Taken Unknown] lisinopril 20 mg PO DAILY #30 tablet 07/24/20 [Rx Last Taken Unknown] ondansetron 4 mg PO Q8H PRN #14 tab 01/02/21 [Rx Last Taken Unknown] fluticasone propion-salmeterol [Advair Diskus] 1 inh INHALATION BID 01/26/21 [History Last Taken Unknown] insulin glargine [Lantus Solostar U-100 Insulin] 10 unit SUBCUT BID 01/26/21 [History Last Taken 01/26/21] clotrimazole 1 applic TOPICAL BID 14 Days #30 g 02/18/21 [Rx Last Taken Unknown] cephalexin 500 mg PO Q6 #40 capsule 04/05/21 [Rx Last Taken Unknown] naproxen 500 mg PO BID PRN #20 tab 04/05/21 [Rx Last Taken Unknown] Allergy/AdvReac Type Severity Reaction Status Date / Time aspirin Allergy BLODDY NOSE Verified 04/05/21 07:31 Social History Smoking Status: Former smoker ROS ROS ED Constitutional Constitutional ED: Denies fever(s) Respiratory/Chest Respiratory/Chest: Denies cough or dyspnea Gastrointestinal Gastrointestinal: Denies nausea Musculoskeletal Musculoskeletal: Reports other Details: Left hand pain Integumentary Reports rash Hematologic/Lymphatic Hematologic/Lymphatic: Denies easy bleeding or easy bruising Allergic/Immunologic Allergic/Immunologic ED: Denies mouth swelling or tongue swelling EXAM Physical Exam Const Vital Signs: 04/05/21 07:29 04/05/21 07:57 Temperature 98.4 F 98.4 F Temperature Source Temporal Temporal Pulse Rate 85 85 Respiratory Rate 20 H 20 H Blood Pressure 158/99 H 158/99 H Blood Pressure Mean 118 118 Pulse Ox 96 96 Oxygen Delivery Method Room Air Room Air Positive well nourished and well developed General Appearance ED: well developed and NAD HEENT normocephalic and atraumatic Resp normal respiratory effort Cardio regular rate and regular rhythm Cardio Narrative: 2+ radial pulses Extremity Extremity Narrative: Examination the patient's left hand shows focal erythema over the dorsum of the hand near the metacarpal phalangeal joint of the ring finger. No evidence of short arc pain. There is no lymphangitic streaking. No fluctuance or induration. No pain on palpation of the fingers. Normal pulses. No S signs of skin breakdown. MDM MDM MDM Narrative Medical decision making narrative: Patient presented with focal redness and swelling on the hand. Radiographs by my personal interpretation as well as radiology are negative for acute process. Patient potential he has an element of cellulitis. Patient be started on a course of Keflex and Naprosyn. Patient was recommended follow-up with primary care. Radiography Diagnostic Testing: Clinical Impression(s) from Imaging Studies Hand X-Ray 04/05/21 07:53 IMPRESSION: Degenerative changes, no acute osseous abnormality is seen. Electronically Signed: Miguel Hill MD at 8:28 EST Tel , Service support , Discharge Plan Triage Chief Complaint: Wound ED Provider: Dominic Goyal Dx/Rx/DC Orders Clinical Impression: Cellulitis of hand, left Instructions: ED Cellulitis Prescriptions: New cephalexin 500 mg capsule 500 mg PO Q6 Qty: 40 RF: 0 naproxen 500 mg tablet 500 mg PO BID PRN Qty: 20 RF: 0 No Action metformin 500 MG tablet 1,000 mg PO BID RF: 0 gabapentin 600 MG tablet 600 mg PO TID RF: 0 Ropinirole ER 1 mg PO QHS RF: 0 cyclobenzaprine 10 MG tablet 10 mg PO TID PRN PRN (Reason: Muscle Spasm) RF: 0 simvastatin 10 MG tablet 10 mg PO DAILY RF: 0 glimepiride 2 MG tablet 2 mg PO DAILY Qty: 30 RF: 0 lisinopril 20 MG tablet 20 mg PO DAILY Qty: 30 RF: 0 ondansetron 4 mg tablet,disintegrating 4 mg PO Q8H PRN (Reason: nausea and vomiting) Qty: 14 RF: 0 fluticasone propion-salmeterol [Advair Diskus] 100-50 mcg/dose Blister With Device 1 inh INHALATION BID RF: 0 Lantus Solostar U-100 Insulin 100 unit/mL (3 mL) insulin pen 10 unit SUBCUT BID RF: 0 clotrimazole 1 % cream 1 applic topical BID 14 Days Qty: 30 RF: 0 Referrals: JENNY ROSA [Other] Disposition Disposition: Home, Self Care
== END 2021-04-05 09:09 | disposition home or self-care (01) ==
PROVIDERS: Emergency Provider Emergency Medicine
DX: L03.114 Cellulitis of left upper limb (principal); I10 Essential (primary) hypertension; E11.40 Type 2 diabetes mellitus with diabetic neuropathy, unspecified; Z79.4 Long term (current) use of insulin; Z79.84 Long term (current) use of oral hypoglycemic drugs; Z79.899 Other long term (current) drug therapy; Z87.891 Personal history of nicotine dependence
CPT/HCPCS: 73130; 99282

== ENCOUNTER 2021-08-27 08:40 | Emergency (ER) | payer MEDICAID, SELFPAY ==
[2021-08-27 08:41] VITALS: BP 152/98; PULSE 86; RESP 18; TEMP 36.8; O2SAT 98; BMI 34.5
--- NOTE | 2021-08-27 09:01 | EDS_ITS ---
HPI History of Present Illness Chief Complaint: Bite Informant: patient Narrative Narrative: Presents concerned of a bite in the back of his neck. Noted a bump there a week ago's been enlarging he manipulated this. There was drainage. No fevers. History of diabetes. Does report living in the [place] with there is a lot of spiders. He states he woke up feeling something crawling in he killed it and noted it to be a spider. [facility] Medical History ACL tear Biceps muscle tear Chronic pain Diabetes Hypertension Meniscal injury Neuropathy Home Medications metformin 1,000 mg PO BID 01/30/17 [History Last Taken 07/23/20] gabapentin 600 mg PO TID 05/18/19 [History Last Taken 07/23/20] Ropinirole ER 1 mg PO QHS 05/30/19 [History Last Taken 07/23/20] cyclobenzaprine 10 mg PO TID PRN PRN 05/14/20 [History Last Taken 07/23/20] simvastatin 10 mg PO DAILY 05/14/20 [History Last Taken 07/23/20] glimepiride 2 mg PO DAILY #30 tab 07/24/20 [Rx Last Taken Unknown] lisinopril 20 mg PO DAILY #30 tablet 07/24/20 [Rx Last Taken Unknown] ondansetron 4 mg PO Q8H PRN #14 tab 01/02/21 [Rx Last Taken Unknown] fluticasone propion-salmeterol [Advair Diskus] 1 inh INHALATION BID 01/26/21 [History Last Taken Unknown] insulin glargine [Lantus Solostar U-100 Insulin] 10 unit SUBCUT BID 01/26/21 [History Last Taken 01/26/21] clotrimazole 1 applic TOPICAL BID 14 Days #30 g 02/18/21 [Rx Last Taken Unknown] cephalexin 500 mg PO Q6 #40 capsule 04/05/21 [Rx Last Taken Unknown] naproxen 500 mg PO BID PRN #20 tab 04/05/21 [Rx Last Taken Unknown] cephalexin 500 mg PO Q6 #40 cap 08/27/21 [Rx Last Taken Unknown] Allergy/AdvReac Type Severity Reaction Status Date / Time aspirin Allergy BLODDY NOSE Verified 04/05/21 07:31 Social History Smoking Status: Former smoker ROS ROS ED Constitutional Constitutional ED: Denies chills, fever(s) or sweats Eyes Eyes: Denies change in vision ENT ENT ED: Denies dysphagia or sore throat Cardiovascular Cardiovascular: Denies chest pain, leg edema, palpitations or racing heartbeat Respiratory/Chest Respiratory/Chest: Denies cough, dyspnea or dyspnea on exertion Gastrointestinal Gastrointestinal: Denies abdominal pain, diarrhea, nausea or vomiting Genitourinary Genitourinary ED: Denies dysuria, hematuria or urinary frequency Musculoskeletal Musculoskeletal: Denies back pain, extremity pain or neck pain Integumentary Reports wounds and other Details: Left posterior neck bump Neurologic Neurologic: Denies headache(s), paresthesias or weakness EXAM Physical Exam Const Vital Signs: 08/27/21 08:41 08/27/21 09:46 Temperature 98.3 F Temperature Source Temporal Pulse Rate 86 73 Respiratory Rate 18 15 Blood Pressure 152/98 H 148/69 H Blood Pressure Mean 116 Pulse Ox 98 96 Oxygen Delivery Method Room Air Positive well nourished and well developed General Appearance ED: well developed and NAD HEENT Reports moist mucous membranes normocephalic and atraumatic Eyes PERRL, EOMs intact bilaterally and conjunctivae normal General Eye ED: Yes normal appearance of both eyes Neck no lymphadenopathy and supple Neck Narrative: Posterior neck 2.5 cm induration mild erythema there is scabbing in the middle there is no fluctuance. Mild tender to palpation. General: Negative for tenderness Chest Wall Chest: Negative for tenderness Resp normal respiratory effort and normal air movement Effort and Inspection: symmetric chest movement; Negative for respiratory distress Cardio regular rate, regular rhythm and no murmurs Peripheral Pulses: pulses 2+ throughout GI normal to inspection, nondistended, normoactive bowel sounds and non-tender Palpation: Negative for guarding or rebound tenderness present Back/Spine no CVA tenderness and no thoracic nor lumbar tenderness Extremity normal to inspection General Extremety ED: Negative for edema or tenderness General Extremity: Negative for edema Neuro oriented x3 and no sensory deficits noted Sensorium / Orientation: awake and alert Skin Skin Narrative: See above MDM MDM MDM Narrative Medical decision making narrative: Patient reported killing the spider on his ne ck a week ago and now has an abscess with induration. Could not palpate fluctuance however he states it is getting larger I discussed I&D needs at least create a path for drainage. He agrees performed without complications there is no drainage he is started on Keflex with a diabetic history. He will follow-up as an outpatient. All questions were answered. Procedure note: Incision and drainage. Verbal consent. Normal sterile conditions. 2 cc lidocaine 1% used for local analgesia, Betadine prep of the skin, 11 blade lifted the scab off, cruciate incision was made, no exudative drainage. Loculations broken. Flushed with normal saline. Patient taught procedure well. Dressing placed by myself. Discharge Plan Triage Chief Complaint: Bite ED Provider: Michael Soliz Dx/Rx/DC Orders Clinical Impression: Abscess of skin of neck, Type 2 diabetes mellitus, Spider bite Instructions: ED Abscess Antibiotic Treatment Only, ED Abscess Incision And Drainage, ED Spider Bite, Non-Poisonous Prescriptions: New cephalexin [cephalexin] 500 MG capsule 500 mg PO Q6 Qty: 40 RF: 0 No Action metformin 500 MG tablet 1,000 mg PO BID RF: 0 gabapentin 600 MG tablet 600 mg PO TID RF: 0 Ropinirole ER 1 mg PO QHS RF: 0 cyclobenzaprine 10 MG tablet 10 mg PO TID PRN PRN (Reason: Muscle Spasm) RF: 0 simvastatin 10 MG tablet 10 mg PO DAILY RF: 0 glimepiride 2 MG tablet 2 mg PO DAILY Qty: 30 RF: 0 lisinopril 20 MG tablet 20 mg PO DAILY Qty: 30 RF: 0 ondansetron 4 mg tablet,disintegrating 4 mg PO Q8H PRN (Reason: nausea and vomiting) Qty: 14 RF: 0 fluticasone propion-salmeterol [Advair Diskus] 100-50 mcg/dose Blister With Device 1 inh INHALATION BID RF: 0 Lantus Solostar U-100 Insulin 100 unit/mL (3 mL) insulin pen 10 unit SUBCUT BID RF: 0 clotrimazole 1 % cream 1 applic topical BID 14 Days Qty: 30 RF: 0 cephalexin 500 mg capsule 500 mg PO Q6 Qty: 40 RF: 0 naproxen 500 mg tablet 500 mg PO BID PRN Qty: 20 RF: 0 Primary Care Provider: Care Physician,No Primary Referrals: Care Physician,No Primary [Primary Care Provider] - Activity Restrictions/Additional Instructions: Take antibiotic as prescribed sent to your pharmacy. Follow-up with your doctor, return if any worsening symptoms. Disposition Disposition: Home, Self Care Discharge Date/Time: 08/27/21 09:55
[2021-08-27] MEDS: Cephalexin 250 MG Capsule 500 MG PO (09:17)
[2021-08-27 09:46] VITALS: BP 148/69; PULSE 73; RESP 15; O2SAT 96
== END 2021-08-27 09:55 | disposition home or self-care (01) ==
PROVIDERS: Emergency Provider Emergency Medicine; Visit Provider Emergency Medicine
DX: L02.11 Cutaneous abscess of neck (principal); E11.40 Type 2 diabetes mellitus with diabetic neuropathy, unspecified; Z79.4 Long term (current) use of insulin; S10.96XA Insect bite of unspecified part of neck, initial encounter; I10 Essential (primary) hypertension; Z79.84 Long term (current) use of oral hypoglycemic drugs; Z79.899 Other long term (current) drug therapy; Z87.891 Personal history of nicotine dependence
CPT/HCPCS: 10060; 99283

== ENCOUNTER 2023-06-29 05:18 | Emergency (ER) | payer MEDICAID, SELFPAY ==
[2023-06-29 05:19] VITALS: BP 130/85; PULSE 95; RESP 16; TEMP 36.6; O2SAT 96; BMI 36.8
--- NOTE | 2023-06-29 05:40 | EDS_ITS ---
HPI History of Present Illness Chief Complaint: Lower Extremity Injury Informant: patient Narrative Narrative: Patient presents with 2-week history of increasing pain to his feet bilaterally. He has dried and cracked skin that he states is very painful. He also has neuropathy that he is on gabapentin for. He presents earlier this morning via EMS secondary to increased pain. He states his neighbor came over to put dressings on his feet and he was shaking because of pain and she was concerned he might be having a seizure so they called 911. Patient did go to [facility] emergency room yesterday. He was given a prescription for ammonium lactate topical cream and referred to podiatry. Patient states he is only taking gabapentin for pain. [place] report shows no prescriptions other than gabapentin in the past year. [facility] Medical History ACL tear Biceps muscle tear Chronic pain Diabetes Hypertension Meniscal injury Neuropathy Home Medications gabapentin 600 mg tablet 600 mg PO TID nerve pain 05/18/19 [History Last Taken 07/23/20] Ropinirole ER 1 mg PO QHS restless leg syndrome 05/30/19 [History Last Taken 07/23/20] cyclobenzaprine 10 mg tablet 10 mg PO TID PRN PRN Muscle Spasm 05/14/20 [History Last Taken 07/23/20] simvastatin 10 mg tablet 10 mg PO DAILY cholesterol 05/14/20 [History Last Taken 07/23/20] glimepiride 2 mg tablet 2 mg PO DAILY #30 TABLETS 07/24/20 [Rx Last Taken Unknown] lisinopril 20 mg tablet 20 mg PO DAILY #30 tabs 07/24/20 [Rx Last Taken Unknown] insulin glargine 100 unit/mL (3 mL) subcutaneous pen (Lantus Solostar U-100 Insulin) 20 unit subcut BID 01/26/21 [History Last Taken 01/26/21] cephalexin 500 mg capsule 500 mg PO Q6 #40 CAPSULES 06/29/23 [Rx Last Taken Unknown] furosemide 20 mg tablet 20 mg PO DAILY 06/29/23 [History Last Taken Unknown] hydrocodone-acetaminophen 5-325mg 5mg-325mg 1 tab PO Q6H PRN PRN Pain 3 days #10 TABLETS 06/29/23 [Rx Last Taken Unknown] magnesium oxide 400 mg (241.3 mg magnesium) tablet 400 mg PO BID 06/29/23 [History Last Taken Unknown] potassium chloride 20 mEq tablet,extended release 20 meq PO DAILY 06/29/23 [History Last Taken Unknown] Allergy/AdvReac Type Severity Reaction Status Date / Time aspirin Allergy BLODDY NOSE Verified 04/05/21 07:31 Social History Smoking Status: Former smoker ROS ROS ED Constitutional Constitutional ED: Denies chills or fever(s) Eyes Eyes: Denies discharge from eye(s) ENT ENT ED: Denies discharge from eye(s), rhinorrhea or sore throat Cardiovascular Cardiovascular: Denies chest pain Respiratory/Chest Respiratory/Chest: Denies cough or dyspnea Gastrointestinal Gastrointestinal: Denies abdominal pain, nausea or vomiting Genitourinary Genitourinary ED: Denies dysuria Musculoskeletal Musculoskeletal: Reports extremity pain; Denies back pain Integumentary Denies Abrasions or rash Neurologic Neurologic: Reports paresthesias; Denies headache(s) or weakness Psychiatric Psychiatric: Reports anxiety; Denies depression Allergic/Immunologic Allergic/Immunologic ED: Denies lip swelling or urticaria EXAM Physical Exam Const Vital Signs: 06/29/23 05:19 Temperature 97.8 F Temperature Source Oral Pulse Rate 95 Respiratory Rate 96 H Blood Pressure 130/85 H Blood Pressure Mean 100 Oxygen Delivery Method Room Air Positive well nourished and well developed General Appearance ED: well developed HEENT Reports moist mucous membranes Eyes EOMs intact bilaterally Chest Wall inspection of chest normal and palpation of chest normal Resp normal respiratory effort and clear to auscultation bilaterally Cardio regular rate and regular rhythm GI non-tender Palpation: soft Extremity Extremity Narrative: Left foot: Patient has linear crack in the skin over the dorsal surface of the left great toe as well as at the plantar surface of the first MTP joint. Mild surrounding erythema noted on the plantar surface. No drainage from the wound. He has a long deep crack in the skin over his heel. Right foot: Small crack to the skin noted along the great toe. No surrounding drainage or fluctuance. No calf tenderness or edema. Neuro oriented x3 and no sensory deficits noted Motor Exam: strength 5/5 throughout Psych mental status grossly normal MDM MDM MDM Narrative Medical decision making narrative: Patient will be given a dose of [place] here along with a dose of Keflex. Wounds are cleansed, bacitracin applied, and dressing placed. Patient has not had any narcotics in the last year per OAR[place] report. I will give him a short course of [place]. Given his diabetes I will avoid NSAIDs and steroids. I will also write him a short course of Keflex to help prevent any early infection as the one lesion on the bottom of the left great toe mostly it may have some early signs of infection. Patient has already been referred to podiatry and will call them on Friday. Discharge Plan Triage Chief Complaint: Lower Extremity Injury ED Provider: Radha Jimenez Dx/Rx/DC Orders Clinical Impression: Wound of foot, Cellulitis Instructions: ED Cellulitis, ED Wound Care Prescriptions: New cephalexin 500 mg capsule 500 mg PO Q6 Qty: 40 0RF hydrocodone-acetaminophen 5-325 mg tablet 1 tab PO Q6H PRN PRN (Reason: Pain) 3 Days Qty: 10 0RF No Action gabapentin 600 MG tablet 600 mg PO TID Ropinirole ER 1 mg PO QHS Rx Instructions: pt unsure of dosage. cyclobenzaprine 10 MG tablet 10 mg PO TID PRN PRN (Reason: Muscle Spasm) simvastatin 10 MG tablet 10 mg PO DAILY glimepiride 2 MG tablet 2 mg PO DAILY Qty: 30 0RF lisinopril 20 MG tablet 20 mg PO DAILY Qty: 30 0RF insulin glargine [Lantus Solostar U-100 Insulin] 100 unit/mL (3 mL) insulin pen 20 unit SUBCUT BID Patient Comments: INJECT TEN units under the skin TWICE DAILY furosemide 20 mg tablet 20 mg PO DAILY magnesium oxide 400 mg (241.3 mg magnesium) tablet 400 mg PO BID potassium chloride 20 mEq tablet extended release 20 meq PO DAILY Primary Care Provider: JENNY ROSA Referrals: JENNY ROSA MD [Primary Care Provider] - 1 Week Care Physician,No Primary [Non-Staff] - Activity Restrictions/Additional Instructions: Follow-up with podiatry as previously referred. Disposition Disposition: Home, Self Care
[2023-06-29] MEDS: HYDROcodone Bitartrate/Apap 5/325 Tablet PO (05:45)
[2023-06-29] MEDS: Cephalexin 250 MG Capsule 500 MG PO (05:45)
[2023-06-29 06:17] VITALS: BP 130/85; PULSE 100; RESP 19; TEMP 36.7; O2SAT 96
== END 2023-06-29 06:23 | disposition home or self-care (01) ==
PROVIDERS: Emergency Provider Emergency Medicine; PCP Internal Medicine; Visit Provider Emergency Medicine
DX: S91.302A Unspecified open wound, left foot, initial encounter (principal); E10.40 Type 1 diabetes mellitus with diabetic neuropathy, unspecified; Z79.4 Long term (current) use of insulin; S91.301A Unspecified open wound, right foot, initial encounter; L03.116 Cellulitis of left lower limb; Z87.891 Personal history of nicotine dependence; Z79.899 Other long term (current) drug therapy; X58.XXXA Exposure to other specified factors, initial encounter
CPT/HCPCS: 99283

== ENCOUNTER 2023-08-24 12:34 | Emergency (ER) | payer MEDICAID, SELFPAY ==
[2023-08-24 12:35] VITALS: BP 100/75; PULSE 93; RESP 18; TEMP 36.6; O2SAT 93; BMI 30.4
[2023-08-24 12:48] VITALS: BP 116/75; PULSE 90; RESP 20; O2SAT 95
--- NOTE | 2023-08-24 13:04 | RAD_ITS ---
HISTORY: chest pain. TECHNIQUE: XR Chest 2 Views. COMPARISON: 02/22/2021. FINDINGS: CARDIOMEDIASTINAL BORDERS: Cardiac silhouette within normal limits in size. Mediastinal contour unremarkable. LUNGS: Radiographically clear. PLEURA: No pleural effusion or pneumothorax seen. OSSEOUS STRUCTURES: Mild degenerative change. RAD/Chest PA and Lateral IMPRESSION: No acute cardiopulmonary process identified. Electronically Signed: Afua Grover MD at 13:52 EDT ,
--- NOTE | 2023-08-24 13:05 | EDS_ITS ---
HPI History of Present Illness Chief Complaint: Chest Pain Informant: patient Narrative Narrative: 58-year-old male states he gets recurrent chest pain all the time, it is left sided, feels like a pulsating discomfort, but this morning at 4 AM he woke up with a different discomfort that was burning and across his chest, nonpleuritic. He states it lasted 5-6 hours and was constant before it went away and now he feels better but he was concerned about the cause because he recently was in the hospital for lower extremity edema diagnosed with congestive heart failure. He states his legs are doing much better now, he went from 280 down to 220 pounds as a result of the diuresis apparently. He states he vomits every other day night, including last night. States is common for him he is not sure exactly why but he does know he has cirrhosis of the liver. He denies any hematemesis, coffee-ground emesis, melena, bright red blood per rectum. He denies any associated symptoms with this this morning such as dyspnea, nausea, sweating, arm discomfort, syncope or presyncope. [facility] Medical History CHF (congestive heart failure) Meniscal injury ACL tear Biceps muscle tear Chronic pain Neuropathy Hypertension Diabetes Home Medications ?Medication ?Instructions ?Recorded ?Last Taken ?Type gabapentin 600 mg tablet 600 mg PO TID nerve pain 05/18/19 07/23/20 History cyclobenzaprine 10 mg tablet 10 mg PO TID PRN PRN Muscle Spasm 05/14/20 07/23/20 History simvastatin 10 mg tablet 10 mg PO DAILY cholesterol 05/14/20 07/23/20 History glimepiride 2 mg tablet 2 mg PO DAILY #30 TABLETS 07/24/20 Unknown Rx lisinopril 20 mg tablet 20 mg PO DAILY #30 tabs 07/24/20 Unknown Rx insulin glargine 100 unit/mL (3 20 unit subcut BID 01/26/21 01/26/21 History mL) subcutaneous pen (Lantus Solostar U-100 Insulin) furosemide 20 mg tablet 20 mg PO DAILY 06/29/23 Unknown History hydrocodone-acetaminophen 5-325mg 1 tab PO Q6H PRN PRN Pain 3 days 06/29/23 Unknown Rx 5mg-325mg #10 TABLETS magnesium oxide 400 mg (241.3 mg 400 mg PO BID 06/29/23 Unknown History magnesium) tablet potassium chloride 20 mEq 20 meq PO DAILY 06/29/23 Unknown History tablet,extended release albuterol sulfate 90 mcg/actuation inhalation 08/24/23 Unknown History aerosol inhaler ammonium lactate 12 % topical cream 1 applic topical BID 08/24/23 Unknown History losartan 50 mg tablet 50 mg PO DAILY 08/24/23 Unknown History metformin 1,000 mg tablet 1,000 mg PO BID 08/24/23 Unknown History prednisone 5 mg tablet 5 mg PO DAILY 08/24/23 Unknown History ropinirole 1 mg tablet 1 mg PO QHS 08/24/23 Unknown History sacubitril 24 mg-valsartan 26 mg 1 tab PO BID 08/24/23 Unknown History tablet (Entresto) spironolactone 25 mg tablet 25 mg PO DAILY 08/24/23 Unknown History Allergy/AdvReac Type Severity Reaction Status Date / Time aspirin AdvReac NOSEBLEED Verified 08/24/23 12:37 Social History Smoking Status: Former smoker ROS ROS ED Constitutional Constitutional ED: Denies chills or fever(s) Eyes Eyes: Denies change in vision or diplopia ENT ENT ED: Denies rhinorrhea or sore throat Cardiovascular Cardiovascular: Reports as per HPI and chest pain; Denies palpitations Respiratory/Chest Respiratory/Chest: Denies cough or dyspnea Gastrointestinal Gastrointestinal: Reports vomiting; Denies abdominal pain, diarrhea or melena Genitourinary Genitourinary ED: Denies dysuria or hematuria Musculoskeletal Musculoskeletal: Denies back pain or neck pain Integumentary Denies abscess or rash Neurologic Neurologic: Denies headache(s), paresthesias or weakness Psychiatric Psychiatric: Denies depression or suicidal thoughts EXAM Physical Exam Const Vital Signs: 08/24/23 12:35 08/24/23 12:46 08/24/23 12:48 Temperature 98 F Temperature Source Temporal Pulse Rate 93 90 Respiratory Rate 18 20 H Respiratory Effort Normal Blood Pressure 100/75 116/75 Blood Pressure Mean 83 88 Pulse Ox 93 95 Oxygen Delivery Method Room Air Room Air 08/24/23 13:20 08/24/23 13:34 08/24/23 14:00 Temperature Temperature Source Pulse Rate 87 86 Respiratory Rate 20 H 18 Respiratory Effort Blood Pressure 97/71 105/70 Blood Pressure Mean 79 81 Pulse Ox 97 97 Oxygen Delivery Method Room Air Room Air Positive well nourished and well developed General Appearance ED: well developed and NAD HEENT Reports moist mucous membranes normocephalic and atraumatic Eyes PERRL and EOMs intact bilaterally Neck full ROM and supple Chest Wall inspection of chest normal and palpation of chest normal Resp normal respiratory effort and clear to auscultation bilaterally Cardio regular rate, regular rhythm and no murmurs GI non-distended GI Narrative: Left upper quadrant tenderness without guarding or rebound Auscultation: normoactive bowel sounds Palpation: soft Back/Spine no CVA tenderness General Back: other FROM Extremity normal to inspection General Extremety ED: Negative for edema, pulses abnormal or tenderness General Extremity: Negative for edema or pulses abnormal Neuro oriented x3, CN's II-XII intact bilaterally and no sensory deficits noted Sensorium / Orientation: awake and alert Motor Exam: strength 5/5 throughout Psych mental status grossly normal Skin no rashes or lesions noted Skin Narrative: Nontender wounds on lower legs and plantar aspect of the left foot none of which look infected or actively draining. Heart Score History: Slightly/Non-Suspicious ECG: Nonspecific Repolarization Age: >45 - <65 years Risk Factors: >/= 3 Risk Factors or History of CAD (Hypertension, diabetes, smoking) Troponin: </= Normal Limit Score: 4 MDM MDM MDM Narrative Medical decision making narrative: Started with 2 view chest x-ray my interpretation it is negative for anything acute. Patient currently not having chest discomfort but he had it for almost 6 hours straight, he has been pain-free for 1 or 2 hours upon initial evaluation, so single troponin should be adequate. It is well within normal limits at 25, similar levels he has had in the past. Rest of his blood counts are good except for sodium that is low at 127, more than likely related to his recent diuresis, he states he is still on furosemide as well as potassium sparing agent, so I would hold that temporarily and replaced some of his sodium which I started here with some sodium tablets, trying to not refill him with lots of excess fluid. His EKG shows a stable old right bundle branch block but he has some T wave inversions that are different compared with his old EKG but it is from 2020. I repeated this later and it did not show any dynamic changes, which is reassuring in context of a normal troponin. His glucose is over 400. Will give him some insulin to help bring it down, he remains chest pain-free and at this time I think he stable for discharge home advised to hold his Lasix for the next 3 days and make sure he follows up with his doctor for repeat evaluation and possible labs. History & Record Review Additional record(s) reviewed:: Prior labs and No prior records (searched for recent admission records, do not exist (likely admitted to different hospital)) Lab Data Attestation: I reviewed the patient's lab results. Labs: Laboratory Results - last 24 hr 08/24/23 12:45 WBC 10.5 RBC 6.29 H Hgb 18.2 H* Hct 54.9 H MCV 87.3 MCH 28.9 MCHC 33.2 RDW Std Deviation 44.4 H RDW Coeff of Shanel 14.1 Plt Count 265 MPV 10.2 Immature Gran % (Auto) 0.400 Neut % (Auto) 78.3 H Lymph % (Auto) 13.2 L Stafford % (Auto) 5.6 Eos % (Auto) 1.6 Baso % (Auto) 0.9 Absolute Neuts (auto) 8.2 H Absolute Lymphs (auto) 1.39 Nucleated RBC % 0 Diff Path Review May foll Sodium 127 L Potassium 4.5 Chloride 91 L Carbon Dioxide 29.0 Anion Gap 7 BUN 34 H Creatinine 1.31 H Estim Creat Clear Calc 76.82 Est GFR (MDRD) Af Amer 73 Est GFR (MDRD) Non-Af 60 BUN/Creatinine Ratio 26.0 H Glucose 404 H Calcium 9.7 Troponin I High Sens 25 Radiography Diagnostic Testing: Clinical Impression(s) from Imaging Studies Chest X-Ray 08/24/23 13:04 IMPRESSION: No acute cardiopulmonary process identified. Electronically Signed: Afua Grover MD at 13:52 EDT , Rhythm Strip Rhythm Strip: Sinus Rhythm Rate: 90 Ectopy: None EKG Initial EKG: Attestation: I personally reviewed and interpreted this EKG as follows: Interpretation: Sinus Rhythm, No Acute Injury Pattern, RBBB and Inverted T-Waves Prior EKG tracings: available for review Prior: Changed (Anteroseptal T wave inversions are new, right bundle is stable) Follow-up EKG: Attestation: I personally reviewed and interpreted this EKG as follows: Interpretation: Sinus Rhythm, No Acute Injury Pattern, RBBB and Inverted T-Waves Prior: Unchanged Discharge Plan Triage Chief Complaint: Chest Pain ED Provider: Richard Diaz Dx/Rx/DC Orders Clinical Impression: Chest pain, unspecified, Hyperglycemia due to type 2 diabetes mellitus, Hyponatremia with normal extracellular fluid volume Instructions: ED Chest Pain, Noncardiac, ED Hyponatremia Prescriptions: Continued gabapentin 600 MG tablet 600 mg PO TID cyclobenzaprine 10 MG tablet 10 mg PO TID PRN PRN (Reason: Muscle Spasm) simvastatin 10 MG tablet 10 mg PO DAILY glimepiride 2 MG tablet 2 mg PO DAILY Qty: 30 0RF lisinopril 20 MG tablet 20 mg PO DAILY Qty: 30 0RF insulin glargine [Lantus Solostar U-100 Insulin] 100 unit/mL (3 mL) insulin pen 20 unit SUBCUT BID Patient Comments: INJECT TEN units under the skin TWICE DAILY losartan 50 mg tablet 50 mg PO DAILY ropinirole 1 mg tablet 1 mg PO QHS prednisone 5 mg tablet 5 mg PO DAILY metformin 1,000 mg tablet 1,000 mg PO BID ammonium lactate 12 % cream 1 applic TOPICAL BID albuterol sulfate 90 mcg/actuation HFA aerosol inhaler inhalation Entresto 24-26 mg tablet 1 tab PO BID Rx Instructions: TAKE 1 TABLET BY MOUTH TWO TIMES EVERY DAY THROUGH August; ON FridayAugust, START TAKING 1 12 TABLETS BY MOUTH TWO TIMES EVERY DAY spironolactone 25 mg tablet 25 mg PO DAILY magnesium oxide 400 mg (241.3 mg magnesium) tablet 400 mg PO BID potassium chloride 20 mEq tablet extended release 20 meq PO DAILY hydrocodone-acetaminophen 5-325 mg tablet 1 tab PO Q6H PRN PRN (Reason: Pain) 3 Days Qty: 10 0RF Held furosemide 20 mg tablet 20 mg PO DAILY Hold Instructions: Resume on 08/28/23. Primary Care Provider: JENNY ROSA Referrals: JENNY ROSA MD [Primary Care Provider] - As soon as possible Print Language: Mongolian Disposition Disposition: Home, Self Care
[2023-08-24 13:13] LABS: Absolute Lymphocyte Count 1.39 X10^3/uL (0.83-4.51); Absolute Neutrophil Count 8.2 X10^3/uL (2.0-7.7); Basophil% 0.9 % (0-1); Eosinophil# 0.17 X10^3/uL; Eosinophils% 1.6 % (0-5); Hematocrit 54.9 % (40-54); Hemoglobin 18.2 g/dL (13.0-16.5); Lymphocyte # 1.39 X10^3/ul (0.83-4.51); Lymphocyte % 13.2 % (19-41); Mean Corp Hgb Conc 33.2 g/dL (32-36); Mean Corpuscular Hgb 28.9 pg (27.0-32.0); Mean Corpuscular Volume 87.3 fL (80-94); Mean Platelet Vol. 10.2 fl (6.2-12.0); Monocyte# 0.59 X10^3/uL; Monocyte% 5.6 % (0-10); NRBC Flagged by Analyzer 0 % (0-5); Neutrophil # 8.24 X10^3/uL (2.7-7.7); Neutrophil % 78.3 % (47-70); Platelet Count 265 K/mm3 (150-450); RBC Distribution Width CV 14.1 % (11.6-14.6); RBC Distribution Width SD 44.4 fl (35.1-43.9); Red Blood Count 6.29 M/mm3 (4.6-6.2); White Blood Count 10.5 K/mm3 (4.4-11.0)
--- NOTE | 2023-08-24 13:15 | EKG12_ITS ---
Test Reason : CP Blood Pressure : / mmHG Vent. Rate : 090 BPM Atrial Rate : 090 BPM P-R Int : 146 ms QRS Dur : 154 ms QT Int : 408 ms P-R-T Axes : 052 252 031 degrees QTc Int : 499 ms Normal sinus rhythm Right bundle branch block Cannot rule out Inferior infarct , age undetermined Anterolateral infarct , age undetermined Abnormal ECG Confirmed by Dominic Ovalles ([id number]), commercial production editor ARCHIE COON ([id number]) on 08/25/2023 12:58:42 PM Referred By: JOSE/NATIVIDAD Confirmed By:Dominic Ovalles
[2023-08-24 13:26] LABS: Anion Gap 7 (5-15); BUN 34 mg/dL (7-18); Calcium,Total 9.7 mg/dL (8.5-10.1); Chloride 91 mmol/L (98-107); Creatinine, Serum 1.31 mg/dL (0.70-1.30); EST Glomerular Filtration Rate 60 mL/min (>60); Est Glom Filt Rate - Afr Amer 73 mL/min (>60); Estimated Creatinine Clearance 76.82 ml/min; Glucose 404 mg/dL (74-106); Potassium 4.5 mmol/L (3.5-5.1); Sodium Level 127 mmol/L (136-145); Troponin-I HS 25 pg/mL (3.0-78.0)
[2023-08-24 13:34] VITALS: BP 97/71; PULSE 87; RESP 20; O2SAT 97
[2023-08-24 14:00] VITALS: BP 105/70; PULSE 86; RESP 18; O2SAT 97
--- NOTE | 2023-08-24 14:21 | EKG12_ITS ---
Test Reason : REPEAT Blood Pressure : / mmHG Vent. Rate : 083 BPM Atrial Rate : 083 BPM P-R Int : 158 ms QRS Dur : 152 ms QT Int : 420 ms P-R-T Axes : 033 249 026 degrees QTc Int : 493 ms Normal sinus rhythm Right bundle branch block Cannot rule out Inferior infarct , age undetermined Anterolateral infarct , age undetermined Abnormal ECG Confirmed by Dominic Ovalles ([id number]), photograph editor ARCHIE COON ([id number]) on 08/25/2023 12:59:14 PM Referred By: Confirmed By:Dominic Ovalles
[2023-08-24 15:00] VITALS: BP 125/89; PULSE 87; RESP 18; O2SAT 97
[2023-08-24] MEDS: Insulin Lispro 100 UNIT/ML INSULN.PEN 14 UNIT SC (15:32)
[2023-08-24] MEDS: Sodium Chloride 1 GM Tablet 2 GM PO (15:38)
[2023-08-24 15:42] VITALS: BP 120/81; PULSE 84; RESP 16; TEMP 36.6; O2SAT 96
[2023-08-25 13:30] LABS: Pathologist Review Reviewed
== END 2023-08-24 15:43 | disposition home or self-care (01) ==
PROVIDERS: Emergency Provider Emergency Medicine; PCP Internal Medicine; Visit Provider Emergency Medicine
DX: R07.9 Chest pain, unspecified (principal); I11.0 Hypertensive heart disease with heart failure; I50.9 Heart failure, unspecified; E11.40 Type 2 diabetes mellitus with diabetic neuropathy, unspecified; E11.65 Type 2 diabetes mellitus with hyperglycemia; E87.1 Hypo-osmolality and hyponatremia; Z87.891 Personal history of nicotine dependence
CPT/HCPCS: 71046; 80048; 84484; 85025; 93005; 99284; A4216

== ENCOUNTER 2023-10-11 10:53 | Emergency (ER) | payer MEDICAID, SELFPAY ==
[2023-10-11 10:53] VITALS: BP 138/99; PULSE 93; RESP 14; TEMP 36.1; O2SAT 95; BMI 32.8
--- NOTE | 2023-10-11 11:02 | EDS_ITS ---
HPI History of Present Illness Chief Complaint: Upper Extremity Injury Informant: patient Narrative Narrative: 58-year-old male presents to the ER because couple days ago states he was taking a nap on the couch and as he was getting up he put his right elbow on the back of the couch to help him get up and he felt sudden pain in his triceps in the middle of it. Ever since then it has been a sharp pain that has been off-and-on triggered with certain movements about the shoulder and elbow. No systemic symptoms or chest discomfort, diaphoresis, dyspnea, or numbness in his hand. 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 [facility] Medical History CHF (congestive heart failure) Meniscal injury ACL tear Biceps muscle tear Chronic pain Neuropathy Hypertension Diabetes Home Medications ?Medication ?Instructions ?Recorded ?Last Taken ?Type gabapentin 600 mg tablet 600 mg PO TID nerve pain 05/18/19 07/23/20 History cyclobenzaprine 10 mg tablet 10 mg PO TID PRN PRN Muscle Spasm 05/14/20 07/23/20 History simvastatin 10 mg tablet 10 mg PO DAILY cholesterol 05/14/20 07/23/20 History glimepiride 2 mg tablet 2 mg PO DAILY #30 TABLETS 07/24/20 Unknown Rx lisinopril 20 mg tablet 20 mg PO DAILY #30 tabs 07/24/20 Unknown Rx insulin glargine 100 unit/mL (3 20 unit subcut BID 01/26/21 01/26/21 History mL) subcutaneous pen (Lantus Solostar U-100 Insulin) furosemide 20 mg tablet 20 mg PO DAILY 06/29/23 Unknown History hydrocodone-acetaminophen 5-325mg 1 tab PO Q6H PRN PRN Pain 3 days 06/29/23 Unknown Rx 5mg-325mg #10 TABLETS magnesium oxide 400 mg (241.3 mg 400 mg PO BID 06/29/23 Unknown History magnesium) tablet potassium chloride 20 mEq 20 meq PO DAILY 06/29/23 Unknown History tablet,extended release albuterol sulfate 90 mcg/actuation inhalation 08/24/23 Unknown History aerosol inhaler ammonium lactate 12 % topical cream 1 applic topical BID 08/24/23 Unknown History losartan 50 mg tablet 50 mg PO DAILY 08/24/23 Unknown History metformin 1,000 mg tablet 1,000 mg PO BID 08/24/23 Unknown History prednisone 5 mg tablet 5 mg PO DAILY 08/24/23 Unknown History ropinirole 1 mg tablet 1 mg PO QHS 08/24/23 Unknown History sacubitril 24 mg-valsartan 26 mg 1 tab PO BID 08/24/23 Unknown History tablet (Entresto) spironolactone 25 mg tablet 25 mg PO DAILY 08/24/23 Unknown History Allergy/AdvReac Type Severity Reaction Status Date / Time aspirin AdvReac NOSEBLEED Verified 10/11/23 10:54 Social History Smoking Status: Former smoker ROS ROS ED Constitutional Constitutional ED: Denies chills or fever(s) Musculoskeletal Musculoskeletal: Reports extremity pain; Denies neck pain Integumentary Denies Abrasions, rash or wounds Neurologic Neurologic: Denies paresthesias or weakness EXAM Physical Exam Const Vital Signs: 10/11/23 10:53 Temperature 97 F L Temperature Source Temporal Pulse Rate 93 Respiratory Rate 14 Blood Pressure 138/99 H Blood Pressure Mean 112 Pulse Ox 95 Oxygen Delivery Method Room Air Positive well nourished and well developed General Appearance ED: well developed and NAD Neck full ROM and supple Back/Spine normal ROM and normal to inspection Extremity normal to inspection and full ROM Extremity Narrative: No tenderness in the right upper arm. Patient is full range of motion of the elbow and shoulder without any apparent difficulty or limitation. With flexing fully at the right elbow and forward flexing at the shoulder in internal rotation and then abducting in order to stretch out the triceps, he feels some discomfort in the same area that he complains of pain in, mid right tricep muscle body. There is no palpable abnormality here. There is no bony tenderness throughout the right upper extremity or rash. Neuro oriented x3, no focal motor deficits and no sensory deficits noted Neuro Narrative: Normal function right upper extremity motor and sensory of median, ulnar, and radial nerves including AIN and PIN branches. Sensorium / Orientation: alert Psych mental status grossly normal and thought process normal Skin no wounds Rashes: no rashes MDM MDM MDM Narrative Medical decision making narrative: Patient has normal function about the elbow and the shoulder with full range of motion, there are no deficits to suggest a triceps rupture, and I am not able to reproduce his pain with palpation or moving his shoulder and elbow in all directions at this time. He can fully extend at the elbow, he has no rashes or lesions, and he has normal neurovascular function distally. Patient is reassured, this is consistent with a triceps muscle strain given that the pain is occurring in the middle of the muscle body, and I do not think any testing or x-rays are indicated at this time supportive care advised he is comfortable with that plan. Discharge Plan Triage Chief Complaint: Upper Extremity Injury ED Provider: Richard Diaz Dx/Rx/DC Orders Clinical Impression: Strain of right triceps muscle Instructions: ED Muscle Strain, Extremity Prescriptions: No Action gabapentin 600 MG tablet 600 mg PO TID cyclobenzaprine 10 MG tablet 10 mg PO TID PRN PRN (Reason: Muscle Spasm) simvastatin 10 MG tablet 10 mg PO DAILY glimepiride 2 MG tablet 2 mg PO DAILY Qty: 30 0RF lisinopril 20 MG tablet 20 mg PO DAILY Qty: 30 0RF insulin glargine [Lantus Solostar U-100 Insulin] 100 unit/mL (3 mL) insulin pen 20 unit SUBCUT BID Patient Comments: INJECT TEN units under the skin TWICE DAILY losartan 50 mg tablet 50 mg PO DAILY ropinirole 1 mg tablet 1 mg PO QHS prednisone 5 mg tablet 5 mg PO DAILY metformin 1,000 mg tablet 1,000 mg PO BID ammonium lactate 12 % cream 1 applic TOPICAL BID albuterol sulfate 90 mcg/actuation HFA aerosol inhaler inhalation Entresto 24-26 mg tablet 1 tab PO BID Rx Instructions: TAKE 1 TABLET BY MOUTH TWO TIMES EVERY DAY THROUGH August; ON FridayAugust, START TAKING 1 12 TABLETS BY MOUTH TWO TIMES EVERY DAY spironolactone 25 mg tablet 25 mg PO DAILY furosemide 20 mg tablet 20 mg PO DAILY magnesium oxide 400 mg (241.3 mg magnesium) tablet 400 mg PO BID potassium chloride 20 mEq tablet extended release 20 meq PO DAILY hydrocodone-acetaminophen 5-325 mg tablet 1 tab PO Q6H PRN PRN (Reason: Pain) 3 Days Qty: 10 0RF Primary Care Provider: JENNY ROSA Referrals: JENNY ROSA MD [Primary Care Provider] - As Needed Print Language: Polish Disposition Disposition: Home, Self Care
== END 2023-10-11 11:11 | disposition home or self-care (01) ==
LOC: ED 11:09
PROVIDERS: Emergency Provider Emergency Medicine; PCP Nurse Practitioner Family; Visit Provider Emergency Medicine
DX: S46.311A Strain of muscle, fascia and tendon of triceps, right arm, initial encounter (principal); I11.0 Hypertensive heart disease with heart failure; I50.9 Heart failure, unspecified; E11.40 Type 2 diabetes mellitus with diabetic neuropathy, unspecified; Z79.4 Long term (current) use of insulin; Z87.891 Personal history of nicotine dependence; Z79.899 Other long term (current) drug therapy; Z79.84 Long term (current) use of oral hypoglycemic drugs; X58.XXXA Exposure to other specified factors, initial encounter
CPT/HCPCS: 99282

== ENCOUNTER → 2023-11-24 | Outpatient (CLI) | payer MEDICAID, SELFPAY ==
--- NOTE | 2023-11-24 07:33 | CDU_ITS ---
Reason For Study: Retinal ischemia Rt. Velocities/BP Lt. Velocities/BP Prox CCA 96.1/16.3 cm/sec. Prox CCA 89.1/16.3 cm/sec. Mid CCA 96.1/22.5 cm/sec. Mid CCA 88.3/16.8 cm/sec. Dist CCA 85.1/21.2 cm/sec. Dist CCA 93.8/16.8 cm/sec. Prox ICA 64.5/17.3 cm/sec. Prox ICA 45.4/11.3 cm/sec. Mid ICA 64.5/25.8 cm/sec. Mid ICA 59.7/23.4 cm/sec. Dist ICA 57.9/25.8 cm/sec. Dist ICA 51.3/20.1 cm/sec. Rt. ICA/CCA = 0.67. Lt. ICA/CCA = 0.68. Prox ECA 117/6.5 cm/sec. Prox ECA 90.5/5.8 cm/sec. Rt. Vert. 31.5/10.7 cm/sec. Lt. Vert. 43.6/14.4 cm/sec. Right Extracranial There is intimal thickening but no significant atherosclerotic plaque noted in the right common carotid artery. There is heterogeneous, smooth atherosclerotic plaque noted in the right internal carotid artery. There is intimal thickening but no significant atherosclerotic plaque noted in the right external carotid artery. Antegrade flow is noted in the right vertebral artery. Left Extracranial There is intimal thickening but no significant atherosclerotic plaque noted in the left common carotid artery. There is heterogeneous, smooth atherosclerotic plaque noted in the left internal carotid artery. There is intimal thickening but no significant atherosclerotic plaque noted in the left external carotid artery. Antegrade flow is noted in the left vertebral artery. Procedure Carotid Duplex [id number]. This is a Carotid Duplex examination using B-mode, color flow and specral Doppler. Exam performed in department. VL/Carotid Duplex Ultrasound Interpretation Summary Mild (<50%) stenosis right extracranial internal carotid. Mild (<50%) stenosis left extracranial internal carotid. Flow within the vertebral arteries is antegrade bilaterally. Ordering Physician: Raj Olmedo Referring Physician: Linwodo Mcgregor Performed By: Puja Mejia RVT
== END | disposition home or self-care (01) ==
LOC: CVS 07:32
PROVIDERS: PCP Nurse Practitioner Family; Referring Provider Ophthalmology; Visit Provider Ophthalmology
DX: H35.82 Retinal ischemia (principal)
CPT/HCPCS: 93880

== ENCOUNTER 2024-03-16 08:59 | Emergency (ER) | payer MEDICAID, SELFPAY ==
[2024-03-16 08:59] VITALS: BP 152/98; PULSE 83; RESP 14; TEMP 36.6; O2SAT 98; BMI 35.6
--- NOTE | 2024-03-16 09:07 | EX.ED.VIS.EY ---
HPI History of Present Illness Chief Complaint: Eye Problem Detail of Chief Complaint: Right eye discharge, swelling and redness Informant: patient Onset/Context/Timing Location: Right Eye Onset: Yesterday Context: Sudden Onset Timing: Continuous Current Severity: Mild Maximum Severity: Moderate Worsened by: Nothing Relieved by: Nothing Associated Symptoms Associated Symptoms - Eyes: Crusting, Drainage, Eyelid swelling, Matting and Redness; Negative for Burning, Foreign body sensation, Itching, Pain or Photophobia Visual Changes: right: Blurred vision (Clears with blinking) History of injury: No Visual correction: None Narrative Narrative: Patient is a 58-year-old male. He has history of hypertension, hypercholesterolemia, type 2 diabetes who presents with right eye redness, swelling, and drainage. Symptoms started yesterday. He was seen in the past for eye problem i.e. several years ago. He is seeing ophthalmology because he states his vision goes all white. Workup was negative for any known cause. He presently denies double vision, blurred vision or loss of vision. He does endorse his eyelashes being matted closed this morning. He has not been around anyone with recent eye infection. He has no other complaints. Prior similar symptoms: Yes Recent Illness/Hospitalization: No PFSH [facility] Medical History CHF (congestive heart failure) Meniscal injury ACL tear Biceps muscle tear Chronic pain Neuropathy Hypertension Diabetes Home Medications ?Medication ?Instructions ?Recorded ?Last Taken ?Type gabapentin 600 mg tablet 600 mg PO TID nerve pain 05/18/19 07/23/20 History cyclobenzaprine 10 mg tablet 10 mg PO TID PRN PRN Muscle Spasm 05/14/20 07/23/20 History simvastatin 10 mg tablet 10 mg PO DAILY cholesterol 05/14/20 07/23/20 History glimepiride 2 mg tablet 2 mg PO DAILY #30 TABLETS 07/24/20 Unknown Rx lisinopril 20 mg tablet 20 mg PO DAILY #30 tabs 07/24/20 Unknown Rx insulin glargine 100 unit/mL (3 20 unit subcut BID 01/26/21 01/26/21 History mL) subcutaneous pen (Lantus Solostar U-100 Insulin) furosemide 20 mg tablet 20 mg PO DAILY 06/29/23 Unknown History hydrocodone-acetaminophen 5-325mg 1 tab PO Q6H PRN PRN Pain 3 days 06/29/23 Unknown Rx 5mg-325mg #10 TABLETS magnesium oxide 400 mg (241.3 mg 400 mg PO BID 06/29/23 Unknown History magnesium) tablet potassium chloride 20 mEq 20 meq PO DAILY 06/29/23 Unknown History tablet,extended release albuterol sulfate 90 mcg/actuation inhalation 08/24/23 Unknown History aerosol inhaler ammonium lactate 12 % topical cream 1 applic topical BID 08/24/23 Unknown History losartan 50 mg tablet 50 mg PO DAILY 08/24/23 Unknown History metformin 1,000 mg tablet 1,000 mg PO BID 08/24/23 Unknown History prednisone 5 mg tablet 5 mg PO DAILY 08/24/23 Unknown History ropinirole 1 mg tablet 1 mg PO QHS 08/24/23 Unknown History sacubitril 24 mg-valsartan 26 mg 1 tab PO BID 08/24/23 Unknown History tablet (Entresto) spironolactone 25 mg tablet 25 mg PO DAILY 08/24/23 Unknown History Allergy/AdvReac Type Severity Reaction Status Date / Time aspirin AdvReac NOSEBLEED Verified 03/16/24 09:02 Social History Smoking Status: Former smoker ROS ROS ED Constitutional Constitutional ED: Denies chills, fever(s), subjective, sweats or weight loss Eyes Eyes: Reports other Details: Per HPI narrative ENT ENT ED: Denies ear pain, rhinorrhea or sore throat Integumentary Denies rash Neurologic Neurologic: Denies headache(s) EXAM Physical Exam Const Vital Signs: 03/16/24 08:59 Temperature 97.9 F Temperature Source Temporal Pulse Rate 83 Respiratory Rate 14 Blood Pressure 152/98 H Blood Pressure Mean 116 Pulse Ox 98 Oxygen Delivery Method Room Air Positive well nourished and well developed Constitutional Narrative: BMI is 35.6. General Appearance ED: well developed and NAD HEENT HEENT Narrative: There is no facial redness/cellulitis, induration, lymphangitis or preauricular lymphadenopathy. atraumatic; Negative for tenderness Nose: external nose normal and nares normal Eyes Eyes Narrative: Pupils are equal round reactive. Extract muscle intact. Sclera is slightly injected on the right. Conjunctive is injected with a whitish-yellow purulent drainage noted. There is also a hordeolum involving the lower lid with slight swelling. There is no pain with eye movement. There is no photophobia to direct or consensual light. Neck no lymphadenopathy, supple and no JVD Neuro oriented x3 and CN's II-XII intact bilaterally Sensorium / Orientation: alert Psych Psych Narrative: Affect and mood are normal. Skin no wounds Lesions: no lesions Rashes: no rashes MDM MDM MDM Narrative Medical decision making narrative: Patient has a hordeolum. Treatment is hot compresses. Patient also has evidence of conjunctivitis. This may represent viral versus bacterial. In light of the fact that he has a hordeolum will treat for bacterial with ciprofloxacin ophthalmic drops. He was referred to see ophthalmology if there is no improvement. My opinion there is no indication for laboratory testing especially basic metabolic panel to assess glucose. There is no concern for herpetic infection. There is no history of trauma. Findings are not consistent with glaucoma. There is no concern for retinal pathology either. Discharge Plan Triage Chief Complaint: Eye Problem ED Provider: Jac Gautam Dx/Rx/DC Orders Clinical Impression: Acute conjunctivitis of right eye, Hypertension, Hordeolum externum of right lower eyelid, Type 2 diabetes mellitus with insulin therapy Instructions: ED Conjunctivitis, Nonspecific, ED Stye Prescriptions: No Action gabapentin 600 MG tablet 600 mg PO TID cyclobenzaprine 10 MG tablet 10 mg PO TID PRN PRN (Reason: Muscle Spasm) simvastatin 10 MG tablet 10 mg PO DAILY glimepiride 2 MG tablet 2 mg PO DAILY Qty: 30 0RF lisinopril 20 MG tablet 20 mg PO DAILY Qty: 30 0RF insulin glargine [Lantus Solostar U-100 Insulin] 100 unit/mL (3 mL) insulin pen 20 unit SUBCUT BID Patient Comments: INJECT TEN units under the skin TWICE DAILY losartan 50 mg tablet 50 mg PO DAILY ropinirole 1 mg tablet 1 mg PO QHS prednisone 5 mg tablet 5 mg PO DAILY metformin 1,000 mg tablet 1,000 mg PO BID ammonium lactate 12 % cream 1 applic TOPICAL BID albuterol sulfate 90 mcg/actuation HFA aerosol inhaler inhalation Entresto 24-26 mg tablet 1 tab PO BID Rx Instructions: TAKE 1 TABLET BY MOUTH TWO TIMES EVERY DAY THROUGH August; ON FridayAugust, START TAKING 1 12 TABLETS BY MOUTH TWO TIMES EVERY DAY spironolactone 25 mg tablet 25 mg PO DAILY furosemide 20 mg tablet 20 mg PO DAILY magnesium oxide 400 mg (241.3 mg magnesium) tablet 400 mg PO BID potassium chloride 20 mEq tablet extended release 20 meq PO DAILY hydrocodone-acetaminophen 5-325 mg tablet 1 tab PO Q6H PRN PRN (Reason: Pain) 3 Days Qty: 10 0RF Primary Care Provider: CARLEE ADAM Referrals: Ricardo Raza MD [Med Staff - Active Staff] - 3-5 Days if not improving CARLEE ADAM, AN/SQQ 89(V)15 [employer]-[facility] [Primary Care Provider] - Activity Restrictions/Additional Instructions: Instill 1 drop every 2-4 hours while awake for the next 3 days then every 4 hours to 6 hours for the next 4 days. Print Language: [place] Disposition Disposition: Home, Self Care
[2024-03-16] MEDS: Ciprofloxacin 0.3% 2.5ml Bottle 2 DRP RIGHT EYE (09:14)
[2024-03-16 09:18] VITALS: BP 152/98; PULSE 83; RESP 14; TEMP 36.6; O2SAT 98
== END 2024-03-16 09:24 | disposition home or self-care (01) ==
LOC: ED 09:20
PROVIDERS: Emergency Provider Emergency Medicine; PCP Nurse Practitioner Family; Visit Provider Emergency Medicine
DX: H00.012 Hordeolum externum right lower eyelid (principal); I11.0 Hypertensive heart disease with heart failure; I50.9 Heart failure, unspecified; E11.40 Type 2 diabetes mellitus with diabetic neuropathy, unspecified; Z79.4 Long term (current) use of insulin; H10.31 Unspecified acute conjunctivitis, right eye; E78.00 Pure hypercholesterolemia, unspecified; Z79.84 Long term (current) use of oral hypoglycemic drugs; Z79.899 Other long term (current) drug therapy; Z87.891 Personal history of nicotine dependence

== ENCOUNTER 2024-03-16 17:32 | Emergency (ER) | payer MEDICAID, SELFPAY ==
[2024-03-16 17:33] VITALS: BP 175/101; PULSE 91; RESP 18; TEMP 36.4; O2SAT 98; BMI 36.4
--- NOTE | 2024-03-16 18:49 | CT_ITS ---
STUDY: CT ORBITS WITH CONTRAST REASON FOR EXAM: Male, 58 years old. eye pain -- Possible periorbital cellulitis RADIATION DOSAGE (If Supplied By Facility): CTDIvol = ( 29.38 ) mGy, DLP = ( 459.30 ) mGycm TECHNIQUE: The patient was scanned in a multi detector CT scanner. Transaxial imaging was performed following the intravenous administration of IV 100mL Isovue-370. Sagittal and coronal images were reconstructed. Individualized dose optimization techniques were used for this CT. The protocol utilizes one or more of the following dose reduction techniques: automated exposure control, adjustment of mA and/or kV according to patient size,and/or use of iterative reconstruction technique. COMPARISON: None. FINDINGS: Normal globes. Normal intraconal spaces. Normal optic nerve sheath complex. Normal bilateral extraocular muscles. Normal lacrimal glands. Normal bilateral medial and inferior orbital traore. Normal bilateral maxillary bones. Old nasal bone fractures. Normal bilateral frontozygomatic arches. Normal bilateral zygomatic temporal arches. Frontal sinuses opacified. Fluid in the ethmoid air cells. Maxillary sinus mucosal thickening. Normal sphenoid sinuses. There is soft tissue swelling right lower leg. Extensive dental caries and periapical lucencies. There is no demonstrated abnormal enhancement. CT/Orb Sella Post Fossa Ear W/CON IMPRESSION: Soft tissue swelling and hemorrhage right lower lip. Frontal Sinusitis. Electronically Signed: George Haro MD at 22:05 EST ,
--- NOTE | 2024-03-16 18:53 | EX.ED.VIS.EY ---
HPI History of Present Illness Chief Complaint: Eye Problem Informant: patient Onset/Context/Timing Location: Right Eye Onset: Today Context: Gradual Onset Timing: Continuous Worsened by: Nothing Relieved by: Nothing Associated Symptoms Associated Symptoms - Eyes: Crusting, Drainage, Eyelid swelling, Foreign body sensation, Matting and Redness; Negative for Burning, Itching, Pain or Photophobia Visual Changes: right: Blurred vision History of injury: No Visual correction: Glasses (Reading glasses as needed) Narrative Narrative: Patient presents with pain and swelling to his right eye that became worse tonight. Patient was seen here earlier today and was diagnosed with a stye. Patient states that after he got home he was watching TV and his eyelid became more swollen and he was having difficulty opening his right eye. Patient admits to some drainage from his right eye. Patient admits to some blurry vision out of his right eye. Patient admits to some matting and crusting of his eyelids. Patient denies any fevers or chills. [facility] Medical History (Updated 03/16/24 @ 22:[address] Abraham Kwon, DO) CHF (congestive heart failure) Meniscal injury ACL tear Biceps muscle tear Chronic pain Neuropathy Hypertension Diabetes Home Medications ?Medication ?Instructions ?Recorded ?Last Taken ?Type gabapentin 600 mg tablet 600 mg PO TID nerve pain 05/18/19 07/23/20 History cyclobenzaprine 10 mg tablet 10 mg PO TID PRN PRN Muscle Spasm 05/14/20 07/23/20 History simvastatin 10 mg tablet 10 mg PO DAILY cholesterol 05/14/20 07/23/20 History glimepiride 2 mg tablet 2 mg PO DAILY #30 TABLETS 07/24/20 Unknown Rx lisinopril 20 mg tablet 20 mg PO DAILY #30 tabs 07/24/20 Unknown Rx insulin glargine 100 unit/mL (3 20 unit subcut BID 01/26/21 01/26/21 History mL) subcutaneous pen (Lantus Solostar U-100 Insulin) furosemide 20 mg tablet 20 mg PO DAILY 06/29/23 Unknown History hydrocodone-acetaminophen 5-325mg 1 tab PO Q6H PRN PRN Pain 3 days 06/29/23 Unknown Rx 5mg-325mg #10 TABLETS magnesium oxide 400 mg (241.3 mg 400 mg PO BID 06/29/23 Unknown History magnesium) tablet potassium chloride 20 mEq 20 meq PO DAILY 06/29/23 Unknown History tablet,extended release albuterol sulfate 90 mcg/actuation inhalation 08/24/23 Unknown History aerosol inhaler ammonium lactate 12 % topical cream 1 applic topical BID 08/24/23 Unknown History losartan 50 mg tablet 50 mg PO DAILY 08/24/23 Unknown History metformin 1,000 mg tablet 1,000 mg PO BID 08/24/23 Unknown History prednisone 5 mg tablet 5 mg PO DAILY 08/24/23 Unknown History ropinirole 1 mg tablet 1 mg PO QHS 08/24/23 Unknown History sacubitril 24 mg-valsartan 26 mg 1 tab PO BID 08/24/23 Unknown History tablet (Entresto) spironolactone 25 mg tablet 25 mg PO DAILY 08/24/23 Unknown History Allergy/AdvReac Type Severity Reaction Status Date / Time aspirin AdvReac NOSEBLEED Verified 03/16/24 19:00 Surgical History (Updated 03/16/24 @ 19:[address] Abraham Kwon DO) Hx of repair of rotator cuff Hx of arthroscopic knee surgery S/P ACL repair Social History Smoking Status: Former smoker ROS ROS ED Constitutional Constitutional ED: Denies chills or fever(s) Eyes Eyes: Denies blurry vision or change in vision ENT ENT ED: Denies rhinorrhea or sore throat Cardiovascular Cardiovascular: Reports chest pain; Denies palpitations Respiratory/Chest Respiratory/Chest: Denies cough or dyspnea Gastrointestinal Gastrointestinal: Denies nausea or vomiting Genitourinary Genitourinary ED: Denies dysuria or hematuria Musculoskeletal Musculoskeletal: Reports back pain; Denies neck pain Integumentary Denies abscess or rash Neurologic Neurologic: Denies headache(s) or weakness Allergic/Immunologic Allergic/Immunologic ED: Denies mouth swelling or urticaria EXAM Physical Exam Const Vital Signs: 03/16/24 17:33 Temperature 97.5 F L Temperature Source Temporal Pulse Rate 91 Respiratory Rate 18 Blood Pressure 175/101 H Blood Pressure Mean 125 Pulse Ox 98 Oxygen Delivery Method Room Air Positive well nourished and well developed General Appearance ED: well developed and NAD Eyes Eyes Narrative: Pupils are equal, round, and reactive to light bilaterally. Extraocular muscles are intact. Conjunctiva was injected on the right. There is some purulent discharge noted from the right eye. There is still a hordeolum over the right lower eyelid. There is mild tenderness. There is no fluctuance. There is minimal edema of the upper and lower eyelids. There is no tenderness. There is no warmth. Neck supple and no JVD Resp normal respiratory effort and clear to auscultation bilaterally Cardio regular rate and regular rhythm Neuro oriented x3, CN's II-XII intact bilaterally, moves all extremities and no sensory deficits noted Sensorium / Orientation: alert Motor Exam: strength 5/5 throughout MDM MDM MDM Narrative Medical decision making narrative: Due to the mild increased of eyelid edema, CT scan of the orbits will be obtained to assess for preorbital and orbital cellulitis. CBC will be obtained to assess for leukocytosis and anemia. Basic metabolic profile will be obtained to assess for electrolyte abnormality and renal function. Lab Data Attestation: I reviewed the patient's lab results. Lab results narrative: CBC was reviewed and was within normal limits. Basic metabolic profile was reviewed. Glucose was elevated at 208. The remainder was within normal limits. Radiography Diagnostic Testing: CT scan of the orbits was obtained to assess for orbital and periorbital cellulitis. Treatment and Re-Evaluation Narrative: Patient states he needed to leave because he has a 12-year-old daughter at home. Patient was advised that the CT results were not back yet. Patient will sign out AGAINST MEDICAL ADVICE. Patient was instructed to continue his antibiotic eyedrops. Patient is able to open both eyes. There is only minimal edema of his eyelids. Clinically, I do not feel that this is orbital or periorbital cellulitis. Patient was instructed to follow-up with his primary care physician in 2 to 3 days. Patient was instructed return if worse in any way. Patient understood and was agreeable with plan. All questions were answered. Discharge Plan Triage Chief Complaint: Eye Problem ED Provider: Abraham Kwon Dx/Rx/DC Orders Clinical Impression: Hordeolum externum of right lower eyelid, Acute conjunctivitis of right eye Prescriptions: No Action gabapentin 600 MG tablet 600 mg PO TID cyclobenzaprine 10 MG tablet 10 mg PO TID PRN PRN (Reason: Muscle Spasm) simvastatin 10 MG tablet 10 mg PO DAILY glimepiride 2 MG tablet 2 mg PO DAILY Qty: 30 0RF lisinopril 20 MG tablet 20 mg PO DAILY Qty: 30 0RF insulin glargine [Lantus Solostar U-100 Insulin] 100 unit/mL (3 mL) insulin pen 20 unit SUBCUT BID Patient Comments: INJECT TEN units under the skin TWICE DAILY losartan 50 mg tablet 50 mg PO DAILY ropinirole 1 mg tablet 1 mg PO QHS prednisone 5 mg tablet 5 mg PO DAILY metformin 1,000 mg tablet 1,000 mg PO BID ammonium lactate 12 % cream 1 applic TOPICAL BID albuterol sulfate 90 mcg/actuation HFA aerosol inhaler inhalation Entresto 24-26 mg tablet 1 tab PO BID Rx Instructions: TAKE 1 TABLET BY MOUTH TWO TIMES EVERY DAY THROUGH August; ON FridayAugust, START TAKING 1 12 TABLETS BY MOUTH TWO TIMES EVERY DAY spironolactone 25 mg tablet 25 mg PO DAILY furosemide 20 mg tablet 20 mg PO DAILY magnesium oxide 400 mg (241.3 mg magnesium) tablet 400 mg PO BID potassium chloride 20 mEq tablet extended release 20 meq PO DAILY hydrocodone-acetaminophen 5-325 mg tablet 1 tab PO Q6H PRN PRN (Reason: Pain) 3 Days Qty: 10 0RF Primary Care Provider: CARLEE ADAM Referrals: CARLEE ADAM ATTENDING PATHOLOGIST-C [Primary Care Provider] - Print Language: [place] Disposition Disposition: Against Medical Advice Discharge Date/Time: 03/16/24 22:02
--- NOTE | 2024-03-16 18:58 | ED.RN ---
PT WAS HERE THIS MORNING AND WAS GIVEN EYE DROPS AND D/C. PT RETURNED D/T THE RIGHT EYE CRUSTING AND DRAINING MORE AND PT'S VISION IS POOR.
[2024-03-16 19:20] LABS: Absolute Lymphocyte Count 1.54 X10^3/uL (0.83-4.51); Absolute Neutrophil Count 4.5 X10^3/uL (2.0-7.7); Basophil# 0.05 X10^3/uL; Basophil% 0.7 % (0-1); Eosinophil# 0.27 X10^3/uL; Eosinophils% 3.8 % (0-5); Hematocrit 45.2 % (40-54); Hemoglobin 15.5 g/dL (13.0-16.5); Lymphocyte # 1.54 X10^3/ul (0.83-4.51); Lymphocyte % 21.9 % (19-41); Mean Corp Hgb Conc 34.3 g/dL (32-36); Mean Corpuscular Hgb 30.9 pg (27.0-32.0); Mean Corpuscular Volume 90.2 fL (80-94); Mean Platelet Vol. 9.7 fl (6.2-12.0); Monocyte# 0.68 X10^3/uL; Monocyte% 9.7 % (0-10); NRBC Flagged by Analyzer 0 % (0-5); Neutrophil # 4.48 X10^3/uL (2.7-7.7); Neutrophil % 63.6 % (47-70); Platelet Count 175 K/mm3 (150-450); RBC Distribution Width CV 12.8 % (11.6-14.6); RBC Distribution Width SD 41.8 fl (35.1-43.9); Red Blood Count 5.01 M/mm3 (4.6-6.2)
[2024-03-16 19:26] LABS: Anion Gap 7 (5-15); BUN 18 mg/dL (7-18); BUN/Creat Ratio 18.3 RATIO (10-20); Chloride 104 mmol/L (98-107); Creatinine, Serum 0.98 mg/dL (0.70-1.30); EST Glomerular Filtration Rate 83 mL/min (>60); Est Glom Filt Rate - Afr Amer 101 mL/min (>60); Estimated Creatinine Clearance 112.09 ml/min; Glucose 208 mg/dL (74-106); Potassium 4.1 mmol/L (3.5-5.1); Sodium Level 137 mmol/L (136-145)
== END 2024-03-16 22:02 | disposition left against medical advice (07) ==
LOC: ED 18:41
PROVIDERS: Emergency Provider Emergency Medicine; PCP Nurse Practitioner Family; Visit Provider Emergency Medicine
DX: H00.012 Hordeolum externum right lower eyelid (principal); I11.0 Hypertensive heart disease with heart failure; I50.9 Heart failure, unspecified; E11.40 Type 2 diabetes mellitus with diabetic neuropathy, unspecified; Z79.4 Long term (current) use of insulin; H10.31 Unspecified acute conjunctivitis, right eye; Z53.29 Procedure and treatment not carried out because of patient's decision for other reasons; Z79.84 Long term (current) use of oral hypoglycemic drugs; Z79.899 Other long term (current) drug therapy; Z87.891 Personal history of nicotine dependence
CPT/HCPCS: 70481; 80048; 85025; 99283; Q9967; A4216

== ENCOUNTER 2024-10-23 07:27 | Emergency (ER) | payer MEDICAID, SELFPAY ==
[2024-10-23 07:28] VITALS: BP 177/108; PULSE 78; RESP 16; TEMP 36.8; O2SAT 99
[2024-10-23 07:30] VITALS: BMI 36.2
--- NOTE | 2024-10-23 07:39 | EX.ED.DYSGE1 ---
HPI History of Present Illness Chief Complaint: Lower Extremity Injury Informant: patient Onset/Context/Timing Onset: Today Current Severity: Mild Maximum Severity: Mild Narrative Narrative: 59-year-old male who reportedly has a fractured left foot. He has had the cast for period of time. Currently he is seeing orthopedics [facility] in [place]. He was sitting in a hot tub earlier this morning he fell asleep and his cast submerged under the water. He wants it taken off. He denies any pain or other injury. Prior similar symptoms: No Recent Illness/Hospitalization: No [facility] Medical History CHF (congestive heart failure) Meniscal injury ACL tear Biceps muscle tear Chronic pain Neuropathy Hypertension Diabetes Home Medications ?Medication ?Instructions ?Recorded ?Last Taken ?Type gabapentin 600 mg tablet 600 mg PO TID nerve pain 05/18/19 07/23/20 History cyclobenzaprine 10 mg tablet 10 mg PO TID PRN PRN Muscle Spasm 05/14/20 07/23/20 History simvastatin 10 mg tablet 10 mg PO DAILY cholesterol 05/14/20 07/23/20 History glimepiride 2 mg tablet 2 mg PO DAILY #30 TABLETS 07/24/20 Unknown Rx lisinopril 20 mg tablet 20 mg PO DAILY #30 tabs 07/24/20 Unknown Rx insulin glargine 100 unit/mL (3 20 unit subcut BID 01/26/21 01/26/21 History mL) subcutaneous pen (Lantus Solostar U-100 Insulin) furosemide 20 mg tablet 20 mg PO DAILY 06/29/23 Unknown History Held on 08/24/23. Instructions: Resume on 08/28/23. hydrocodone-acetaminophen 5-325mg 1 tab PO Q6H PRN PRN Pain 3 days 06/29/23 Unknown Rx 5mg-325mg #10 TABLETS magnesium oxide 400 mg (241.3 mg 400 mg PO BID 06/29/23 Unknown History magnesium) tablet potassium chloride 20 mEq 20 meq PO DAILY 06/29/23 Unknown History tablet,extended release albuterol sulfate 90 mcg/actuation inhalation 08/24/23 Unknown History aerosol inhaler ammonium lactate 12 % topical cream 1 applic topical BID 08/24/23 Unknown History losartan 50 mg tablet 50 mg PO DAILY 08/24/23 Unknown History metformin 1,000 mg tablet 1,000 mg PO BID 08/24/23 Unknown History prednisone 5 mg tablet 5 mg PO DAILY 08/24/23 Unknown History ropinirole 1 mg tablet 1 mg PO QHS 08/24/23 Unknown History sacubitril 24 mg-valsartan 26 mg 1 tab PO BID 08/24/23 Unknown History tablet (Entresto) spironolactone 25 mg tablet 25 mg PO DAILY 08/24/23 Unknown History Allergy/AdvReac Type Severity Reaction Status Date / Time aspirin AdvReac NOSEBLEED Verified 03/16/24 19:00 Surgical History Hx of repair of rotator cuff Hx of arthroscopic knee surgery S/P ACL repair Social History Smoking Status: Former smoker ROS ROS ED ROS Narrative Denies recent illness. Constitutional Constitutional ED: Denies fever(s) Eyes Eyes: Denies blurry vision ENT ENT ED: Denies ear pain Cardiovascular Cardiovascular: Denies chest pain Respiratory/Chest Respiratory/Chest: Denies cough Gastrointestinal Gastrointestinal: Denies abdominal pain Genitourinary Genitourinary ED: Denies dysuria Musculoskeletal Musculoskeletal: Denies arthralgias Integumentary Denies abscess Neurologic Neurologic: Denies headache(s) Psychiatric Psychiatric: Denies anxiety Endocrine Endocrinology: Denies cold intolerance Hematologic/Lymphatic Hematologic/Lymphatic: Reports none Allergic/Immunologic Allergic/Immunologic ED: Denies mouth swelling, tongue swelling, urticaria or other EXAM Physical Exam Narrative Exam Narrative: 59-year-old male sitting upright in bed. Vital signs stable afebrile. No acute distress. H EENT exam pupils reactive light. Moist mucous membranes. Neck nontender no lymphadenopathy. Lungs clear to auscultation bilaterally. Heart regular rhythm no murmur. Chest wall ribs nontender. Abdomen soft nontender. Moving all 4 extremities. Left lower leg below the knee to the chest before the tip of his toes he has a cast on. It is wet on the bottom and around the distal half. His foot appears to be neurovascularly intact he is able to wiggle his toes. Normal touch sensation. Neurologically he is awake and alert. Answering questions following commands. Const Vital Signs: 10/23/24 07:28 Temperature 98.3 F Temperature Source Oral Pulse Rate 78 Respiratory Rate 16 Blood Pressure 177/108 H Blood Pressure Mean 131 Pulse Ox 99 Oxygen Delivery Method Room Air Positive well nourished and well developed; Negative for cachectic, contractures or unkempt General Appearance ED: well developed and NAD; Negative for unkempt, cachectic, contractures, cyanotic, diaphoretic or pallor Nutritional Appearance: Negative for cachectic HEENT Reports moist mucous membranes Negative for trauma or tenderness Eyes PERRL and EOMs intact bilaterally General Eye ED: Negative for pale conjunctiva or scleral icterus Neck no lymphadenopathy, supple and no JVD General: Negative for tenderness Chest Wall inspection of chest normal and palpation of chest normal Resp normal respiratory effort and clear to auscultation bilaterally Cardio regular rate, regular rhythm, S1 normal heart sound, S2 normal heart sound and no murmurs GI normal to inspection, nondistended, normoactive bowel sounds, non-tender, non-distended and no masses Auscultation: normoactive bowel sounds Palpation: soft; Negative for tender, guarding or rebound tenderness present Back/Spine no CVA tenderness Extremity normal to inspection Extremity Narrative: Short leg cast left lower leg just below the knee to almost the tip of his toes. Distal half is very wet. Neuro oriented x3 and CN's II-XII intact bilaterally Sensorium / Orientation: alert Motor Exam: strength 5/5 throughout Psych mental status grossly normal Appearance: Negative for unkempt Skin no rashes or lesions noted, no wounds and skin turgor normal General Skin Exam: Negative for jaundice or pallor Rashes: No rashes noted Trauma: Negative for abrasion MDM MDM MDM Narrative Medical decision making narrative: 59-year-old male reportedly has a fractured left foot. He has been in a cast. Today he actually fell asleep in a hot tub and the cast got soaking wet. He wants it changed. Cast will be removed. To be placed in a posterior splint. He was due to have his cast taken off in the next week or so. He will follow-up with the orthopedics to see if they want to recast him or place him in a walking boot which she is already discussed with them. History & Record Review Discussion w/independent historian: Patient Procedures Lower Extremity Splints Lower Extremity Splint: Orthoglass Splint Fabrication: Fabricated Location: Left (Patient placed in a left posterior Ortho-Glass splint. Well-padded. Tolerated well. Was instructed not to weight-bear. Keep it dry and clean. Keep it on.) Discharge Plan Triage Chief Complaint: Lower Extremity Injury ED Provider: Bruno Valverde Dx/Rx/DC Orders Clinical Impression: History of foot fracture Instructions: ED Fracture, Foot Prescriptions: No Action gabapentin 600 MG tablet 600 mg PO TID cyclobenzaprine 10 MG tablet 10 mg PO TID PRN PRN (Reason: Muscle Spasm) simvastatin 10 MG tablet 10 mg PO DAILY glimepiride 2 MG tablet 2 mg PO DAILY Qty: 30 0RF lisinopril 20 MG tablet 20 mg PO DAILY Qty: 30 0RF insulin glargine [Lantus Solostar U-100 Insulin] 100 unit/mL (3 mL) insulin pen 20 unit SUBCUT BID Patient Comments: INJECT TEN units under the skin TWICE DAILY losartan 50 mg tablet 50 mg PO DAILY ropinirole 1 mg tablet 1 mg PO QHS prednisone 5 mg tablet 5 mg PO DAILY metformin 1,000 mg tablet 1,000 mg PO BID ammonium lactate 12 % cream 1 applic TOPICAL BID albuterol sulfate 90 mcg/actuation HFA aerosol inhaler inhalation Entresto 24-26 mg tablet 1 tab PO BID Rx Instructions: TAKE 1 TABLET BY MOUTH TWO TIMES EVERY DAY THROUGH August; ON FridayAugust, START TAKING 1 12 TABLETS BY MOUTH TWO TIMES EVERY DAY spironolactone 25 mg tablet 25 mg PO DAILY furosemide 20 mg tablet 20 mg PO DAILY magnesium oxide 400 mg (241.3 mg magnesium) tablet 400 mg PO BID potassium chloride 20 mEq tablet extended release 20 meq PO DAILY hydrocodone-acetaminophen 5-325 mg tablet 1 tab PO Q6H PRN PRN (Reason: Pain) 3 Days Qty: 10 0RF Primary Care Provider: CARLEE ADAM Referrals: Ricardo Lawson MD [Non-Staff] - 3-5 Days CARLEE ADAM NP-C [Primary Care Provider] - Activity Restrictions/Additional Instructions: Keep the splint dry and clean. Do not walk on it it is not strong enough. But it will immobilize your foot like the casted. Call your orthopedic doctors office on Friday. Let them know that your cast had to be taken off because it got wet. Time you have a splint on. They may want to see you to decide if they need to recasted or they can put you in the walking boot. Print Language: Syriac Disposition Disposition: Home, Self Care
--- OUTSIDE RECORDS SUMMARY | 2024-10-23 07:54 | XMS RPT_ITS | CCD ---
Author Organization [facility] Care Team Providers Care [employer] Name Role Phone Guadalupe Ruggiero Primary Care Provider [phone] JANETSAMINAWAQASVALERI Referring Unavailable FLOR JACOBO Primary Care Unavailable PROVIDER, UNKNOWN Attending Unavailable PROVIDER, UNKNOWN Admitting Keira Ruggiero MD, [facility] Primary Care Provider [phone] PHYSICIAN, NONE Primary Care Physician Unavailab dragan RUGGIERO MD, [facility] Primary Care Physician Monik BROWN, [facility] Primary Care Provider [phone] ALYSSA BARR MD Attending Unavail jeremías RUGGIERO MD, [facility] Unavailable MONIK BROWN, [facility] Primary Care Unavailable ALYSSA BARR MD Attending Unavail able MECHE BARRAGAN, [facility] Primary Care Physician MONIK BROWN, [facility] Primary Care Unavailable [facility] AZALEA SHEPPARD Attending Unavailable MECHE TAYLOR-J2EE CONSULTANT, [facility] Primary Care Roel BARRAGAN, CARLEE Attending Roel RUGGIERO MD, [facility] Primary Care Unavailable SHRUTHI BROWN, DR GRACIELA Meek Attending Roel RUGGIERO MD, [facility] Primary Care Unavailable [facility] Attending Unavailable MECHE BARRAGAN, CARLEE Primary Care DR GRACIELA Salinas MD Attending Roel BARRAGAN, CARLEE Primary Care Roel BARRAGAN, CARLEE Attending Roel BRADLEY MD, KULDEEP Beckford Attending Unavail jeremías RUGGIERO MD, [facility] Primary Care Unavailable IVORY TAYLOR-NOE, SILVANO Solitario Attending UnavailFERNANDA Dozier Referring Unavailable FISH GROUP CHIEF OPERATOR-J2EE CONSULTANT, HUSAM Consulting Unavailab dragan ORNELAS GROUP CHIEF OPERATOR-J2EE CONSULTANT, GISSELL M Admitting Unavail jeremías RUGGIERO MD, [facility] Primary Care Unavailable MARELY BROWN FACP, KENYON Ocampo Attending Unavail able LOUISA YBARRA MD Referring Unavailable MONIK BROWN, [facility] Consulting Unavailable KAPPALEAH GROUP CHIEF OPERATOR-J2EE CONSULTANT, SILVANO M Admitting Unavaila north RUGGIERO MD, [facility] Primary Care Unavailable MARELY BROWN FACP, KENYON Ocampo Consulting Unavail able YEHUDA DPM, KENYON Treviño Consulting Unavailable MONIK BROWN, [facility] Care Unavailable JOSE ROBERTO SHEPPARD, DR MAGGIE Bookre Attending Unavailable MECHE GROUP CHIEF OPERATOR-J2EE CONSULTANT, [facility] Primary Care Roel GILLILAND MD, DR YANCI Chan Attending Roel RUGGIERO MD, [facility] Unavailable JILLIAN KELLEY MD Attending Unavailable MONIK BROWN, [facility] Unavailable JARED, CONSUELO Attending Unavailable MONIK BROWN, [facility] Care Unavailable AZALEA PAYNE DO Attending Unavailable KYLER TERRY MD Consulting Unavailable RACHID SHEPPARD, CARLEE Attending Unavailable MECHE GROUP CHIEF OPERATOR-J2EE CONSULTANT, [facility] Primary Care AZALEA Roque DO Attending Unavailable MONIK BROWN, [facility] Unavailable MONIK BROWN, [facility] Unavailable JARED, CONSUELO Attending Unavailable MONIK BROWN, [facility] Care Unavailable KULDEEP BRADLEY MD Attending Unavail jeremías RUGGIERO MD, [facility] Unavailable CONSUELO COLEMAN Attending Unavailable AYESHA PATEL MD Attending Unavailable CHASE LEIVA MD Consulting Unavailable MONIK BROWN, [facility] Care Unavailable HINA WALKER Admitting Roel GILESETLER GROUP CHIEF OPERATOR-J2EE CONSULTANT, CARLEE Primary Care KYLER Mae MD Attending Unavailable Monik BROWN, [facility] Primary Care Provider Richard Diaz Attending Unavailable MONIK, [facility] Primary Care Unavailable MECHE, CARLEE Primary Care Unavailable Richard Diaz Attending Unavailable MECHE, CARLEE Primary Care Unavailable Jac Gautam Attending Unavailable Abraham Kwon Attending Unavailable MECHE, CARLEE Primary Care Unavailable MECHE, CARLEE Primary Care Unavailable Raj Olmedo Attending Unavailable Raj lOmedo Referring Unavailable Radha Jimenez Attending [facility] Unavailable [facility]ik [facility]OWN, [facility] Primary Care Provider [phone] Meche GROUP CHIEF OPERATOR - J2EE CONSULTANT, Carlee Primary Care Provide r CHERYLE CANALES PA-C Attending Unavailable MECHE GROUP CHIEF OPERATOR-J2EE CONSULTANT, CARLEE Primary Care Unavai lable MECHE GROUP CHIEF OPERATOR-J2EE CONSULTANT, CARLEE Primary Care Roel HAWKINS MD, DR GRACIELA Meek Attending Unavai lable MECHE GROUP CHIEF OPERATOR-J2EE CONSULTANT, CARLEE Attending Unavai lable MECHE GROUP CHIEF OPERATOR-J2EE CONSULTANT, CARLEE Primary Care Roel HAWKINS MD, DR GRACIELA Meek Attending Unavai lable MECHE GROUP CHIEF OPERATOR-J2EE CONSULTANT, CARLEE Primary Care Unavai lable MECHE GROUP CHIEF OPERATOR-J2EE CONSULTANT, CARLEE Primary Care Unavai lable MECHE GROUP CHIEF OPERATOR-J2EE CONSULTANT, CARLEE Attending Unavai lable MECHE GROUP CHIEF OPERATOR-J2EE CONSULTANT, CARLEE Primary Care ABRHAAM Valdovinos MD Attending Unavailable RICARDO LARA DO Attending Unavailabl e MECHE GROUP CHIEF OPERATOR-J2EE CONSULTANT, CARLEE Primary Care Roel BRADLEY MD, KULDEEP Beckford Attending Unavail able MECHE GROUP CHIEF OPERATOR-J2EE CONSULTANT, CARLEE Primary Care Roel VALENTINE MD, JOSEPH Solitario Attending Unavailable MECHE GROUP CHIEF OPERATOR-J2EE CONSULTANT, CARLEE Primary Care RICARDO Harley DO Attending Unavailabl e MECHE GROUP CHIEF OPERATOR-J2EE CONSULTANT, CARLEE Primary Care Unavai lable MECHE GROUP CHIEF OPERATOR-J2EE CONSULTANT, CARLEE Attending Unavai lable MECHE GROUP CHIEF OPERATOR-J2EE CONSULTANT, CARLEE Primary Care Roel RAYMOND MD, KRIS Solitario Attending Unavailable MECHE GROUP CHIEF OPERATOR-J2EE CONSULTANT, CARLEE Primary Care Unavai lable MECHE, CARLEE Primary Care Unavailable HALEY SHETH Referring Unavailable MECHE, CARLEE Primary Care Unavailable RICARDO SMITH Attending Unavailable MECHE, CARLEE Primary Care Unavailable RICARDO SMITH Attending Unavailable ABRAHAM BRIAN Referring Unavailable HALEY SHETH Attending Unavailable MECHE, CARLEE Primary Care Unavailable CARLEE MCGREGOR Primary Care Unavailable HALEY SHETH Referring Unavailable Allergies Allergy Classification Reported Allergen(s) Allergy Type Date of Onset Reaction(s) Facility (11 sources) Aluminum aspirin; Translations: [ASPIRIN] Drug Allergy 8 [place], [place] (16 sources) Salicylic Acid Drug Allergy 2 Other: See Comments [facility] (20 sources) Aspirin; Translations: [aspirin] Drug Allergy 1 BLODDY NOSE, bloody nose [facility] (6 sources) Salicylate product Drug Allergy 2 Other: See Comments [facility] (1 source) Aspirin Drug Allergy 4 [facility] Repository Medications Current Medications Medication Drug Class(es) Dates Sig (Normalized) Sig (Original) acetaminophen 325 mg / HYDROcodone bitartrate 5 mg oral tablet (3 sources) Opioid Agonist Start: 09-01-2024 End: 09-04-2024 take 1 tablet by mouth every six hours as needed for pain [place] 325- 5 mg oral tablet Dose = 1 tab(s), Oral, q6h, PRN for pain, X 3 day(s), # 12 tab(s), 0 Refill(s), Fracture of foot bone, left, closed, 122.5 Start Date: 09/01/24 Stop Date: 09/04/24 Status: Ordered Quantity: 12.0 Unit: tab(s) Repeat number: 1 Indications: Unspecified fracture of left foot, initial encounter for closed fracture; Start: 06-29-2023 take 1 tablet by todd th every six hours as needed Hydrocodone-Acetaminophen Active 1 TABLE T PO EVERY 6 HOURS NEEDED 10 3 June 29, 2023 Start: 03-12-2019 End: 03-15-2019 take 1 tablet by mouth every six hours as needed for pain HYDROcodone-acetaminophen (NORCO) 5-325 MG per tablet Indications: Abscess Take 1 tablet by mouth every 6 hours as needed for Pain for up to 3 days. 10 tablet 0 03/12/2019 03/15/2019 Active [id number] 200 actuat albuterol 0.09 mg/actuat metered dose inhaler (20 sources) beta2-Adrenergic Agonist albuterol HFA (VENTOLIN HFA) 90 mcg/actuation inhaler Inhale 2 Puffs as instructed as needed. Active Comment on above: Inhale 2 Puffs as in structed as needed. Albuterol (Eqv-Proventil HFA) 90 mcg/inh inhalation aerosol (12 sources) Start: 025 take 2 doses by inhalation every six hours as needed for wheezing Albuterol (Eqv-Proventil HFA) 90 mcg/inh inhalation aerosol Dose : 180 mcg = 2 inh, Inhalation, q6hr, PRN as needed for shortness of breath or wheezing, # 18 gram(s), 2 Refill(s), Pharmacy: [facility], 182, cm, 07/02/24 9:35:00 EDT, Height, kg, 07/02/24 9:35:00 EDT, Dosing Weight Start Date: 07/05/24 Status: Ordered Quantity: 18.0 Unit: g Repeat number: 3 Start: 05-13-2024 take 2 doses by inha lation every six hours as needed for wheezing Albuterol (Eqv-Proventil HFA) 90 Performed By: #### B 12, GLIAD, HBSAB, SMUSC, ADALI, 1HAVM, EBV, IGA, CERUL, HBSAG, ENDO, AFPS, CMV, GGT #### [place] [address] #### [id number], [id number], ANEU, LIPID, [id number], PRO, CBC, VIDH, TSH, APTT, ANAIFS, ADIFF, HFP, AHAVG, FERR, 826356, BMP, FES, FT4, 456556, GFR #### [facility] [address] [place], [place] [address] .Auto Diffon 05-11-2024 Basophil, Absolute 0.0 10 3/mcL Normal 0.0-0.2 [facility] Comment on above: Performed By: #### B 12, GLIAD, HBSAB, SMUSC, ADALI, 1HAVM, EBV, IGA, CERUL, HBSAG, ENDO, AFPS, CMV, GGT #### [place] [id number] #### [id number], 383534, ANEU, LIPID, [id number], PRO, CBC, VIDH, TSH, APTT, ANAIFS, ADIFF, HFP, AHAVG, FERR, 417843, BMP, FES, FT4, 196493, GFR #### [address] [address] Basophils/100 WBC (Bld) 0.5 % Normal 0.0-2.5 [facility] Comment on above: Performed By: #### B 12, GLIAD, HBSAB, SMUSC, ADALI, 1HAVM, EBV, IGA, CERUL, HBSAG, ENDO, AFPS, CMV, GGT #### [place] [address] #### [id number], 283134, ANEU, LIPID, [id number], PRO, CBC, VIDH, TSH, APTT, ANAIFS, ADIFF, HFP, AHAVG, FERR, 352339, BMP, FES, FT4, 898280, GFR #### [address] [address] Eosinophil, Absolute 0.2 10 3/mcL Normal 0.0-0.7 [facility] Comment on above: Performed By: #### B 12, GLIAD, HBSAB, SMUSC, ADALI, 1HAVM, EBV, IGA, CERUL, HBSAG, ENDO, AFPS, CMV, GGT #### [place] [address] #### [id number], 012872, ANEU, LIPID, [id number], PRO, CBC, VIDH, TSH, APTT, ANAIFS, ADIFF, HFP, AHAVG, FERR, 808409, BMP, FES, FT4, 937194, GFR #### [address] [address] Eosinophils/100 WBC (Bld) 2.6 % Normal 0.0-7.0 [facility] Comment on above: Performed By: #### B 12, GLIAD, HBSAB, SMUSC, ADALI, 1HAVM, EBV, IGA, CERUL, HBSAG, ENDO, AFPS, CMV, GGT #### [place] [address] #### 550038, 696356, ANEU, LIPID, [id number], PRO, CBC, VIDH, TSH, APTT, ANAIFS, ADIFF, HFP, AHAVG, FERR, 573845, BMP, FES, FT4, 686991, GFR #### [address] [address] Lymphocyte, Absolute 0.8 10 3/mcL Low 0.9-4.3 [facility] Comment on above: Performed By: #### B 12, GLIAD, HBSAB, SMUSC, ADALI, 1HAVM, EBV, IGA, CERUL, HBSAG, ENDO, AFPS, CMV, GGT #### [place] [address] #### [id number], 732426, ANEU, LIPID, [id number], PRO, CBC, VIDH, TSH, APTT, ANAIFS, ADIFF, HFP, AHAVG, FERR, 844436, BMP, FES, FT4, 551146, GFR #### [address] [address] Lymphocytes/100 WBC (Bld) 10.6 % Low 20.0-40.0 [facility] Comment on above: Performed By: #### B 12, GLIAD, HBSAB, SMUSC, ADALI, 1HAVM, EBV, IGA, CERUL, HBSAG, ENDO, AFPS, CMV, GGT #### [place] [address] #### [id number], 435956, ANEU, LIPID, [id number], PRO, CBC, VIDH, TSH, APTT, ANAIFS, ADIFF, HFP, AHAVG, FERR, 281989, BMP, FES, FT4, 082439, GFR #### [address] [address] Monocyte, Absolute 0.5 10 3/mcL Normal 0.1-1.4 [facility] Comment on above: Performed By: #### B 12, GLIAD, HBSAB, SMUSC, ADALI, 1HAVM, EBV, IGA, CERUL, HBSAG, ENDO, AFPS, CMV, GGT #### [address] [address] #### [id number], 146431, ANEU, LIPID, [id number], PRO, CBC, VIDH, TSH, APTT, ANAIFS, ADIFF, HFP, AHAVG, FERR, 774710, BMP, FES, FT4, 065055, GFR #### [address] [address] Monocytes/100 WBC (Bld) 6.3 % Normal 2.0-13.0 [facility] Comment on above: Performed By: #### B 12, GLIAD, HBSAB, SMUSC, ADALI, 1HAVM, EBV, IGA, CERUL, HBSAG, ENDO, AFPS, CMV, GGT #### [place] [id number] #### 909401, 722007, ANEU, LIPID, [id number], PRO, CBC, VIDH, TSH, APTT, ANAIFS, ADIFF, HFP, AHAVG, FERR, 842501, BMP, FES, FT4, 797009, GFR #### [address] [address] Neutrophils/100 WBC (Bld) 80.0 % High 50.0-75.0 [facility] Comment on above: Performed By: #### B 12, GLIAD, HBSAB, SMUSC, ADALI, 1HAVM, EBV, IGA, CERUL, HBSAG, ENDO, AFPS, CMV, GGT #### [place] [id number] #### 335014, 367459, ANEU, LIPID, [id number], PRO, CBC, VIDH, TSH, APTT, ANAIFS, ADIFF, HFP, AHAVG, FERR, 117262, BMP, FES, FT4, 625709, GFR #### [address] [address] .GFRon 05-11-2024 Estimated Glomerular Filtration Rate 78 ml/min/1.73sqm Normal [facility] Comment on above: Result Comment: Stages of Chronic Kidney Disease (CKD) Stage Description eGFR(ml/min/1.73 sq.m.) CKD 1 Normal kidney function or >=90 normal kindney function with possible kidney damage (ex. Proteinuria) CKD 2 Kidney damage with mild loss 60-89 of kidney function CKD 3a Mild to moderate loss of kidney 45-59 function CKD 3b Moderate to severe loss of 30-44 of kindey function CKD 4 Severe loss of kidney function 15-29 CKD 5 Kidney failure <15 Note: ( live 05/11/2024) the eGFR calculation was updated to the 2020 CKD-EPI creatinine equation without a race factor to calculate the eGFR results. Performed By: #### B 12, GLIAD, HBSAB, SMUSC, ADALI, 1HAVM, EBV, IGA, CERUL, HBSAG, ENDO, AFPS, CMV, GGT #### [address] [address] #### [id number], 665764, ANEU, LIPID, [id number], PRO, CBC, VIDH, TSH, APTT, ANAIFS, ADIFF, HFP, AHAVG, FERR, 997670, BMP, FES, FT4, 319911, GFR #### [address] [address] Estimated Glomerular Filtration Rate 79 ml/min/1.73sqm Normal [facility] Comment on above: Result Comment: Stages of Chronic Kidney Disease (CKD) Stage Description eGFR(ml/min/1.73 sq.m.) CKD 1 Normal kidney function or >=90 normal kindney function with possible kidney damage (ex. Proteinuria) CKD 2 Kidney damage with mild loss 60-89 of kidney function CKD 3a Mild to moderate loss of kidney 45-59 function CKD 3b Moderate to severe loss of 30-44 of kindey function CKD 4 Severe loss of kidney function 15-29 CKD 5 Kidney failure <15 Note: ( live 05/11/2024) the eGFR calculation was updated to the 2020 CKD-EPI creatinine equation without a race factor to calculate the eGFR results. Performed By: #### B 12, GLIAD, HBSAB, SMUSC, ADALI, 1HAVM, EBV, IGA, CERUL, HBSAG, ENDO, AFPS, CMV, GGT #### [place] [id number] #### [id number], 976194, ANEU, LIPID, [id number], PRO, CBC, VIDH, TSH, APTT, ANAIFS, ADIFF, HFP, AHAVG, FERR, 804705, BMP, FES, FT4, 929134, GFR #### [address] [address] .NEUABSon 05-11-2024 Neutrophil, Absolute 6.2 10 3/mcL Normal 2.3-8.1 [facility] Comment on above: Performed By: #### B 12, GLIAD, HBSAB, SMUSC, ADALI, 1HAVM, EBV, IGA, CERUL, HBSAG, ENDO, AFPS, CMV, GGT #### [place] [address] #### 088330, 555114, ANEU, LIPID, [id number], PRO, CBC, VIDH, TSH, APTT, ANAIFS, ADIFF, HFP, AHAVG, FERR, 836880, BMP, FES, FT4, 793391, GFR #### [address] [address] A1Con 05-11-2024 Glucose [Mass/Vol] 151 mg/dL Normal [facility] Comment on above: Result Comment: Ida mated Average Glucose calculated by equation ((28.7xA1C)-46.7) Estimated average glucose (eAG) is a calculated value from Hemoglobin A1C and is pharmacy sales representative of the average blood glucose level in the last 2-3 month period. Normal range: less than 114 mg/dL Performed By: #### B 12, GLIAD, HBSAB, SMUSC, ADALI, 1HAVM, EBV, IGA, CERUL, HBSAG, ENDO, AFPS, CMV, GGT #### [place] [address] #### 053343, 245465, ANEU, LIPID, [id number], PRO, CBC, VIDH, TSH, APTT, ANAIFS, ADIFF, HFP, AHAVG, FERR, 429495, BMP, FES, FT4, 001356, GFR #### [place] [id number] HbA1c (Bld) [Mass fraction] 6.9 % High 4.3-6.4 [facility] Comment on above: Performed By: #### B 12, GLIAD, HBSAB, SMUSC, ADALI, 1HAVM, EBV, IGA, CERUL, HBSAG, ENDO, AFPS, CMV, GGT #### [place] [address] #### 933110, 211305, ANEU, LIPID, [id number], PRO, CBC, VIDH, TSH, APTT, ANAIFS, ADIFF, HFP, AHAVG, FERR, 905042, BMP, FES, FT4, 395858, GFR #### [place] [id number] AFPSon 05-11-2024 AFP, Tumor Marker <2.2 Normal 0.0-8.5 [facility] Comment on above: Result Comment: Test ing performed on the [employer] analyzer using direct chemiluminesent technology. Patient results determined by assays using different manufacturers for methods may not be comparable. Performed By: #### B 12, GLIAD, HBSAB, SMUSC, ADALI, 1HAVM, EBV, IGA, CERUL, HBSAG, ENDO, AFPS, CMV, GGT #### [place] [address] #### 526487, 088565, ANEU, LIPID, [id number], PRO, CBC, VIDH, TSH, APTT, ANAIFS, ADIFF, HFP, AHAVG, FERR, 478929, BMP, FES, FT4, 565520, GFR #### [address] [address] ALKISOon 05-11-2024 Fasting Y Yes Normal [facility] Comment on above: Performed By: #### B 12, GLIAD, HBSAB, SMUSC, ADALI, 1HAVM, EBV, IGA, CERUL, HBSAG, ENDO, AFPS, CMV, GGT #### [place] [address] #### 718280, 943170, ANEU, LIPID, [id number], PRO, CBC, VIDH, TSH, APTT, ANAIFS, ADIFF, HFP, AHAVG, FERR, 202418, BMP, FES, FT4, 844188, GFR #### [address] [address] Diann 05-11-2024 Ammonia (P) [Mass/Vol] ug/dL Low 11-32 [facility] Comment on above: Performed By: #### B 12, GLIAD, HBSAB, SMUSC, ADALI, 1HAVM, EBV, IGA, CERUL, HBSAG, ENDO, AFPS, CMV, GGT #### [address] [address] #### 434348, 527325, ANEU, LIPID, [id number], PRO, CBC, VIDH, TSH, APTT, ANAIFS, ADIFF, HFP, AHAVG, FERR, 648825, BMP, FES, FT4, 166675, GFR #### [address] [address] APTTon 05-11-2024 aPTT Coag (Bld) [Time] 27.6 s Normal 25.0-35.0 [facility] Comment on above: Result Comment: For Heparin anticoagulation therapy, the recommended therapeutic range is: 45.4-75.9 seconds. Patients on heparin therapy may have an extreme result. Performed By: #### B 12, GLIAD, HBSAB, SMUSC, ADALI, 1HAVM, EBV, IGA, CERUL, HBSAG, ENDO, AFPS, CMV, GGT #### [address] [address] #### [id number], 250874, ANEU, LIPID, [id number], PRO, CBC, VIDH, TSH, APTT, ANAIFS, ADIFF, HFP, AHAVG, FERR, 946804, BMP, FES, FT4, 420196, GFR #### [address] [address] B12on 05-11-2024 Cobalamin (Vitamin B12) [Mass/Vol] 471 pg/mL Normal 211-911 [facility] Comment on above: Performed By: #### B 12, GLIAD, HBSAB, SMUSC, ADALI, 1HAVM, EBV, IGA, CERUL, HBSAG, ENDO, AFPS, CMV, GGT #### [place] [address] #### 891065, 687727, ANEU, LIPID, [id number], PRO, CBC, VIDH, TSH, APTT, ANAIFS, ADIFF, HFP, AHAVG, FERR, 984824, BMP, FES, FT4, 828838, GFR #### [address] [address] [facility]2024 BUN/Creatinine Ratio 20 ratio Normal 7-27 [facility] Comment on above: Performed By: #### B 12, GLIAD, HBSAB, SMUSC, ADALI, 1HAVM, EBV, IGA, CERUL, HBSAG, ENDO, AFPS, CMV, GGT #### [place] [address] #### 781378, 035257, ANEU, LIPID, [id number], PRO, CBC, VIDH, TSH, APTT, ANAIFS, ADIFF, HFP, AHAVG, FERR, 564611, BMP, FES, FT4, 790113, GFR #### [address] [address] Calcium [Mass/Vol] 9.5 mg/dL Normal 8.4-10.2 [facility] Comment on above: Performed By: #### B 12, GLIAD, HBSAB, SMUSC, ADALI, 1HAVM, EBV, IGA, CERUL, HBSAG, ENDO, AFPS, CMV, GGT #### [place] [id number] #### 303109, 721222, ANEU, LIPID, [id number], PRO, CBC, VIDH, TSH, APTT, ANAIFS, ADIFF, HFP, AHAVG, FERR, 678380, BMP, FES, FT4, 887786, GFR #### [address] [address] Chloride [Moles/Vol] 99 mmol/L Normal 98-107 [facility] Comment on above: Performed By: #### B 12, GLIAD, HBSAB, SMUSC, ADALI, 1HAVM, EBV, IGA, CERUL, HBSAG, ENDO, AFPS, CMV, GGT #### [address] [address] #### 704447, 139346, ANEU, LIPID, [id number], PRO, CBC, VIDH, TSH, APTT, ANAIFS, ADIFF, HFP, AHAVG, FERR, 007315, BMP, FES, FT4, 349634, GFR #### [address] [address] CO2 [Moles/Vol] 30 mmol/L High 22-29 [facility] Comment on above: Performed By: #### B 12, GLIAD, HBSAB, SMUSC, ADALI, 1HAVM, EBV, IGA, CERUL, HBSAG, ENDO, AFPS, CMV, GGT #### [place] [address] #### [id number], 871190, ANEU, LIPID, [id number], PRO, CBC, VIDH, TSH, APTT, ANAIFS, ADIFF, HFP, AHAVG, FERR, 775697, BMP, FES, FT4, 624598, GFR #### [address] [address] Creatinine [Mass/Vol] 1.10 mg/dL Normal 0.70-1.30 [facility] Comment on above: Result Comment: Test ing performed on Siem[employer] Dimension EXL analyzer using a modified kinetic Tony technique. Performed By: #### B 12, GLIAD, HBSAB, SMUSC, ADALI, 1HAVM, EBV, IGA, CERUL, HBSAG, ENDO, AFPS, CMV, GGT #### [address] [address] #### [id number], 802959, ANEU, LIPID, [id number], PRO, CBC, VIDH, TSH, APTT, ANAIFS, ADIFF, HFP, AHAVG, FERR, 019804, BMP, FES, FT4, 579159, GFR #### [address] [address] Electrolyte Balance 7.0 mEq/L Normal 4.0-15.0 [facility] Comment on above: Performed By: #### B 12, GLIAD, HBSAB, SMUSC, ADALI, 1HAVM, EBV, IGA, CERUL, HBSAG, ENDO, AFPS, CMV, GGT #### [address] [address] #### [id number], 527010, ANEU, LIPID, [id number], PRO, CBC, VIDH, TSH, APTT, ANAIFS, ADIFF, HFP, AHAVG, FERR, 369500, BMP, FES, FT4, 628945, GFR #### [address] [address] Glucose [Mass/Vol] 196 mg/dL High 70-105 [facility] Comment on above: Performed By: #### B 12, GLIAD, HBSAB, SMUSC, ADALI, 1HAVM, EBV, IGA, CERUL, HBSAG, ENDO, AFPS, CMV, GGT #### [address] [address] #### [id number], 835123, ANEU, LIPID, [id number], PRO, CBC, VIDH, TSH, APTT, ANAIFS, ADIFF, HFP, AHAVG, FERR, 902447, BMP, FES, FT4, 529522, GFR #### [address] [address] Potassium [Moles/Vol] 4.7 mmol/L Normal 3.5-5.1 [facility] Comment on above: Performed By: #### B 12, GLIAD, HBSAB, SMUSC, ADALI, 1HAVM, EBV, IGA, CERUL, HBSAG, ENDO, AFPS, CMV, GGT #### [address] [address] #### 398031, 381180, ANEU, LIPID, [id number], PRO, CBC, VIDH, TSH, APTT, ANAIFS, ADIFF, HFP, AHAVG, FERR, 412734, BMP, FES, FT4, 714612, GFR #### [address] [address] Sodium [Moles/Vol] 136 mmol/L Normal 136-145 [facility] Comment on above: Performed By: #### B 12, GLIAD, HBSAB, SMUSC, ADALI, 1HAVM, EBV, IGA, CERUL, HBSAG, ENDO, AFPS, CMV, GGT #### [place] [address] #### [id number], [id number], ANEU, LIPID, [id number], PRO, CBC, VIDH, TSH, APTT, ANAIFS, ADIFF, HFP, AHAVG, FERR, 384909, BMP, FES, FT4, 196983, GFR #### [place] [id number] [place], [place] [address] Urea nitrogen [Mass/Vol] 22 mg/dL High 7-18 [facility] Comment on above: Performed By: #### B 12, GLIAD, HBSAB, SMUSC, ADALI, 1HAVM, EBV, IGA, CERUL, HBSAG, ENDO, AFPS, CMV, GGT #### [place] [address] #### [id number], [id number], ANEU, LIPID, [id number], PRO, CBC, VIDH, TSH, APTT, ANAIFS, ADIFF, HFP, AHAVG, FERR, 185536, BMP, FES, FT4, 220484, GFR #### [address] [address] CBCon 05-11-2024 Erythrocyte distribution width (RBC) [Ratio] 13.5 % Normal 11.5-15.5 [facility] Comment on above: Performed By: #### B 12, GLIAD, HBSAB, SMUSC, ADALI, 1HAVM, EBV, IGA, CERUL, HBSAG, ENDO, AFPS, CMV, GGT #### [address] [address] #### [id number], [id number], ANEU, LIPID, [id number], PRO, CBC, VIDH, TSH, APTT, ANAIFS, ADIFF, HFP, AHAVG, FERR, 896506, BMP, FES, FT4, 459344, GFR #### [address] [address] Hematocrit (Bld) [Volume fraction] 48.8 % Normal 40.0-52.0 [facility] Comment on above: Performed By: #### B 12, GLIAD, HBSAB, SMUSC, ADALI, 1HAVM, EBV, IGA, CERUL, HBSAG, ENDO, AFPS, CMV, GGT #### [address] [address] #### [id number], [id number], ANEU, LIPID, [id number], PRO, CBC, VIDH, TSH, APTT, ANAIFS, ADIFF, HFP, AHAVG, FERR, 602728, BMP, FES, FT4, 154058, GFR #### [place] [id number] Hgb 16.7 G/dL Normal 13.0-17.5 [facility] Comment on above: Performed By: #### B 12, GLIAD, HBSAB, SMUSC, ADALI, 1HAVM, EBV, IGA, CERUL, HBSAG, ENDO, AFPS, CMV, GGT #### [place] [address] #### [id number], 370995, ANEU, LIPID, [id number], PRO, CBC, VIDH, TSH, APTT, ANAIFS, ADIFF, HFP, AHAVG, FERR, 940329, BMP, FES, FT4, 587122, GFR #### [address] [address] MCH (RBC) [Entitic mass] 31.5 pg Normal 27.0-33.0 [facility] Comment on above: Performed By: #### B 12, GLIAD, HBSAB, SMUSC, ADALI, 1HAVM, EBV, IGA, CERUL, HBSAG, ENDO, AFPS, CMV, GGT #### [place] [address] #### [id number], [id number], ANEU, LIPID, [id number], PRO, CBC, VIDH, TSH, APTT, ANAIFS, ADIFF, HFP, AHAVG, FERR, 199735, BMP, FES, FT4, 749900, GFR #### [address] [address] MCHC 34.2 G/dL Normal 32.0-36.0 [facility] Comment on above: Performed By: #### B 12, GLIAD, HBSAB, SMUSC, ADALI, 1HAVM, EBV, IGA, CERUL, HBSAG, ENDO, AFPS, CMV, GGT #### [place] [address] #### [id number], 708130, ANEU, LIPID, [id number], PRO, CBC, VIDH, TSH, APTT, ANAIFS, ADIFF, HFP, AHAVG, FERR, 725691, BMP, FES, FT4, 261982, GFR #### [place] [id number] MCV (RBC) [Entitic vol] 92.2 fL Normal 81.0-100.0 [facility] Comment on above: Performed By: #### B 12, GLIAD, HBSAB, SMUSC, ADALI, 1HAVM, EBV, IGA, CERUL, HBSAG, ENDO, AFPS, CMV, GGT #### [place] [address] #### 070783, 375826, ANEU, LIPID, [id number], PRO, CBC, VIDH, TSH, APTT, ANAIFS, ADIFF, HFP, AHAVG, FERR, 793807, BMP, FES, FT4, 866153, GFR #### [address] [address] Platelet 208 10 3/mcL Normal 150-450 [facility] Comment on above: Performed By: #### B 12, GLIAD, HBSAB, SMUSC, ADALI, 1HAVM, EBV, IGA, CERUL, HBSAG, ENDO, AFPS, CMV, GGT #### [place] [address] #### 065468, 549738, ANEU, LIPID, [id number], PRO, CBC, VIDH, TSH, APTT, ANAIFS, ADIFF, HFP, AHAVG, FERR, 396984, BMP, FES, FT4, 347476, GFR #### [address] [address] Platelet mean volume (Bld) [Entitic vol] 8.0 fL Normal 6.4-10.5 [facility] Comment on above: Performed By: #### B 12, GLIAD, HBSAB, SMUSC, ADALI, 1HAVM, EBV, IGA, CERUL, HBSAG, ENDO, AFPS, CMV, GGT #### [place] [address] #### 562883, 370170, ANEU, LIPID, [id number], PRO, CBC, VIDH, TSH, APTT, ANAIFS, ADIFF, HFP, AHAVG, FERR, 668903, BMP, FES, FT4, 114543, GFR #### [address] [address] RBC 5.30 10 6/mcL Normal 4.50-6.00 [facility] Comment on above: Performed By: #### B 12, GLIAD, HBSAB, SMUSC, ADALI, 1HAVM, EBV, IGA, CERUL, HBSAG, ENDO, AFPS, CMV, GGT #### [place] [id number] #### 796170, 511069, ANEU, LIPID, [id number], PRO, CBC, VIDH, TSH, APTT, ANAIFS, ADIFF, HFP, AHAVG, FERR, 344524, BMP, FES, FT4, 743445, GFR #### [address] [address] WBC 7.8 10 3/mcL Normal 4.5-10.8 [facility] Comment on above: Performed By: #### [place] 12, GLIAD, HBSAB, SMUSC, ADALI, 1HAVM, EBV, IGA, CERUL, HBSAG, ENDO, AFPS, CMV, GGT #### [address] [address] #### [id number], 901270, ANEU, LIPID, [id number], PRO, CBC, VIDH, TSH, APTT, ANAIFS, ADIFF, HFP, AHAVG, FERR, 521003, BMP, FES, FT4, 522863, GFR #### [address] [address] CERULon 05-11-2024 Ceruloplasmin 27.0 mg/dL Normal 22.0-58.0 [facility] Comment on above: Performed By: #### B 12, GLIAD, HBSAB, SMUSC, ADALI, 1HAVM, EBV, IGA, CERUL, HBSAG, ENDO, AFPS, CMV, GGT #### [address] [address] #### 686729, 316177, ANEU, LIPID, [id number], PRO, CBC, VIDH, TSH, APTT, ANAIFS, ADIFF, HFP, AHAVG, FERR, 830946, BMP, FES, FT4, 023089, GFR #### [address] [address] CMPon 05-11-2024 Albumin Level 3.9 G/dL Normal 3.5-5.0 [facility] Comment on above: Performed By: #### B 12, GLIAD, HBSAB, SMUSC, ADALI, 1HAVM, EBV, IGA, CERUL, HBSAG, ENDO, AFPS, CMV, GGT #### [place] [id number] #### 384792, 137479, ANEU, LIPID, [id number], PRO, CBC, VIDH, TSH, APTT, ANAIFS, ADIFF, HFP, AHAVG, FERR, 509695, BMP, FES, FT4, 725795, GFR #### [address] [address] Albumin/Globulin [Mass ratio] 0.9 {ratio} Low 1.1-2.5 [facility] Comment on above: Performed By: #### B 12, GLIAD, HBSAB, SMUSC, ADALI, 1HAVM, EBV, IGA, CERUL, HBSAG, ENDO, AFPS, CMV, GGT #### [place] [address] #### 656198, 214273, ANEU, LIPID, [id number], PRO, CBC, VIDH, TSH, APTT, ANAIFS, ADIFF, HFP, AHAVG, FERR, 205872, BMP, FES, FT4, 588096, GFR #### [address] [address] ALP [Catalytic activity/Vol] 65 U/L Normal 40-135 [facility] Comment on above: Performed By: #### B 12, GLIAD, HBSAB, SMUSC, ADALI, 1HAVM, EBV, IGA, CERUL, HBSAG, ENDO, AFPS, CMV, GGT #### [place] [address] #### 125504, 668317, ANEU, LIPID, [id number], PRO, CBC, VIDH, TSH, APTT, ANAIFS, ADIFF, HFP, AHAVG, FERR, 095916, BMP, FES, FT4, 029942, GFR #### [address] [address] ALT [Catalytic activity/Vol] 23 U/L Normal 16-63 [facility] Comment on above: Performed By: #### B 12, GLIAD, HBSAB, SMUSC, ADALI, 1HAVM, EBV, IGA, CERUL, HBSAG, ENDO, AFPS, CMV, GGT #### [place] [address] #### 309794, 527353, ANEU, LIPID, [id number], PRO, CBC, VIDH, TSH, APTT, ANAIFS, ADIFF, HFP, AHAVG, FERR, 402122, BMP, FES, FT4, 713197, GFR #### [address] [address] AST [Catalytic activity/Vol] 16 U/L Normal 10-40 [facility] Comment on above: Performed By: #### B 12, GLIAD, HBSAB, SMUSC, ADALI, 1HAVM, EBV, IGA, CERUL, HBSAG, ENDO, AFPS, CMV, GGT #### [address] [address] #### 814200, 580466, ANEU, LIPID, [id number], PRO, CBC, VIDH, TSH, APTT, ANAIFS, ADIFF, HFP, AHAVG, FERR, 956059, BMP, FES, FT4, 856100, GFR #### [address] [address] Bili Total 0.9 mg/dL Normal 0.2-1.0 [facility] Comment on above: Result Comment: Use of this assay is not recommended for patients undergoing treatment with eltrombopag due to the potential for falsely elevated results. Performed By: #### B 12, GLIAD, HBSAB, SMUSC, ADALI, 1HAVM, EBV, IGA, CERUL, HBSAG, ENDO, AFPS, CMV, GGT #### [address] [address] #### 531158, 980001, ANEU, LIPID, [id number], PRO, CBC, VIDH, TSH, APTT, ANAIFS, ADIFF, HFP, AHAVG, FERR, 974771, BMP, FES, FT4, 367713, GFR #### [address] [address] BUN/Creatinine Ratio 21 ratio Normal 7-27 [facility] Comment on above: Performed By: #### B 12, GLIAD, HBSAB, SMUSC, ADALI, 1HAVM, EBV, IGA, CERUL, HBSAG, ENDO, AFPS, CMV, GGT #### [address] [address] #### 026071, 975405, ANEU, LIPID, [id number], PRO, CBC, VIDH, TSH, APTT, ANAIFS, ADIFF, HFP, AHAVG, FERR, 632507, BMP, FES, FT4, 441612, GFR #### [address] [address] Calcium [Mass/Vol] 9.4 mg/dL Normal 8.4-10.2 [facility] Comment on above: Performed By: #### B 12, GLIAD, HBSAB, SMUSC, ADALI, 1HAVM, EBV, IGA, CERUL, HBSAG, ENDO, AFPS, CMV, GGT #### [address] [address] #### 893121, 685106, ANEU, LIPID, [id number], PRO, CBC, VIDH, TSH, APTT, ANAIFS, ADIFF, HFP, AHAVG, FERR, 518023, BMP, FES, FT4, 421397, GFR #### [address] [address] Chloride [Moles/Vol] 98 mmol/L Normal 98-107 [facility] Comment on above: Performed By: #### [place] 12, GLIAD, HBSAB, SMUSC, ADALI, 1HAVM, EBV, IGA, CERUL, HBSAG, ENDO, AFPS, CMV, GGT #### [address] [address] #### 215828, 980515, ANEU, LIPID, [id number], PRO, CBC, VIDH, TSH, APTT, ANAIFS, ADIFF, HFP, AHAVG, FERR, 449533, BMP, FES, FT4, 187141, GFR #### [address] [address] CO2 [Moles/Vol] 30 mmol/L High 22-29 [facility] Comment on above: Performed By: #### B 12, GLIAD, HBSAB, SMUSC, ADALI, 1HAVM, EBV, IGA, CERUL, HBSAG, ENDO, AFPS, CMV, GGT #### [address] [address] #### 402620, 178110, ANEU, LIPID, [id number], PRO, CBC, VIDH, TSH, APTT, ANAIFS, ADIFF, HFP, AHAVG, FERR, 254228, BMP, FES, FT4, 984868, GFR #### [address] [address] Creatinine [Mass/Vol] 1.09 mg/dL Normal 0.70-1.30 [facility] Comment on above: Result Comment: Test ing performed on Siemens Dimension EXL analyzer using a modified kinetic Tony technique. Performed By: #### B 12, GLIAD, HBSAB, SMUSC, ADALI, 1HAVM, EBV, IGA, CERUL, HBSAG, ENDO, AFPS, CMV, GGT #### [place] [address] #### 005836, 183737, ANEU, LIPID, [id number], PRO, CBC, VIDH, TSH, APTT, ANAIFS, ADIFF, HFP, AHAVG, FERR, 764518, BMP, FES, FT4, 896360, GFR #### [address] [address] Electrolyte Balance 8.0 mEq/L Normal 4.0-15.0 [facility] Comment on above: Performed By: #### B 12, GLIAD, HBSAB, SMUSC, ADALI, 1HAVM, EBV, IGA, CERUL, HBSAG, ENDO, AFPS, CMV, GGT #### [place] [address] #### 221323, 597472, ANEU, LIPID, [id number], PRO, CBC, VIDH, TSH, APTT, ANAIFS, ADIFF, HFP, AHAVG, FERR, 009298, BMP, FES, FT4, 241362, GFR #### [address] [address] Globulin 4.2 G/dL Normal [facility] Comment on above: Performed By: #### B 12, GLIAD, HBSAB, SMUSC, ADALI, 1HAVM, EBV, IGA, CERUL, HBSAG, ENDO, AFPS, CMV, GGT #### [place] [id number] #### 711769, 550536, ANEU, LIPID, [id number], PRO, CBC, VIDH, TSH, APTT, ANAIFS, ADIFF, HFP, AHAVG, FERR, 624720, BMP, FES, FT4, 716862, GFR #### [address] [address] Glucose [Mass/Vol] 193 mg/dL High 70-105 [facility] Comment on above: Performed By: #### B 12, GLIAD, HBSAB, SMUSC, ADALI, 1HAVM, EBV, IGA, CERUL, HBSAG, ENDO, AFPS, CMV, GGT #### [address] [address] #### 038507, 650819, ANEU, LIPID, [id number], PRO, CBC, VIDH, TSH, APTT, ANAIFS, ADIFF, HFP, AHAVG, FERR, 515714, BMP, FES, FT4, 267056, GFR #### [address] [address] Potassium [Moles/Vol] 4.7 mmol/L Normal 3.5-5.1 [facility] Comment on above: Performed By: #### B 12, GLIAD, HBSAB, SMUSC, ADALI, 1HAVM, EBV, IGA, CERUL, HBSAG, ENDO, AFPS, CMV, GGT #### [address] [address] #### 976597, 777969, ANEU, LIPID, [id number], PRO, CBC, VIDH, TSH, APTT, ANAIFS, ADIFF, HFP, AHAVG, FERR, 476878, BMP, FES, FT4, 511892, GFR #### [address] [address] Sodium [Moles/Vol] 136 mmol/L Normal 136-145 [facility] Comment on above: Performed By: #### B 12, GLIAD, HBSAB, SMUSC, ADALI, 1HAVM, EBV, IGA, CERUL, HBSAG, ENDO, AFPS, CMV, GGT #### [address] [address] #### 409364, 817440, ANEU, LIPID, [id number], PRO, CBC, VIDH, TSH, APTT, ANAIFS, ADIFF, HFP, AHAVG, FERR, 966158, BMP, FES, FT4, 704372, GFR #### [address] [address] Total Protein 8.1 G/dL Normal 6.4-8.2 [facility] Comment on above: Performed By: #### B 12, GLIAD, HBSAB, SMUSC, ADALI, 1HAVM, EBV, IGA, CERUL, HBSAG, ENDO, AFPS, CMV, GGT #### [address] [address] #### 431126, 630080, ANEU, LIPID, [id number], PRO, CBC, VIDH, TSH, APTT, ANAIFS, ADIFF, HFP, AHAVG, FERR, 487345, BMP, FES, FT4, 752717, GFR #### [address] [address] Urea nitrogen [Mass/Vol] 23 mg/dL High 7-18 [facility] Comment on above: Performed By: #### B 12, GLIAD, HBSAB, SMUSC, ADALI, 1HAVM, EBV, IGA, CERUL, HBSAG, ENDO, AFPS, CMV, GGT #### [address] [address] #### 977156, 710196, ANEU, LIPID, [id number], PRO, CBC, VIDH, TSH, APTT, ANAIFS, ADIFF, HFP, AHAVG, FERR, 094655, BMP, FES, FT4, 542490, GFR #### [address] [address] Zayra 05-11-2024 Ferritin [Mass/Vol] 149.0 ng/mL Normal 26.0-388.0 [facility] Comment on above: Performed By: #### B 12, GLIAD, HBSAB, SMUSC, ADALI, 1HAVM, EBV, IGA, CERUL, HBSAG, ENDO, AFPS, CMV, GGT #### [address] [address] #### 435440, 438160, ANEU, LIPID, [id number], PRO, CBC, VIDH, TSH, APTT, ANAIFS, ADIFF, HFP, AHAVG, FERR, 491936, BMP, FES, FT4, 476267, GFR #### [address] [address] FESon 05-11-2024 Iron [Mass/Vol] 141 ug/dL Normal 65-175 [facility] Comment on above: Performed By: #### B 12, GLIAD, HBSAB, SMUSC, ADALI, 1HAVM, EBV, IGA, CERUL, HBSAG, ENDO, AFPS, CMV, GGT #### [place] [address] #### 448923, 977565, ANEU, LIPID, [id number], PRO, CBC, VIDH, TSH, APTT, ANAIFS, ADIFF, HFP, AHAVG, FERR, 188065, BMP, FES, FT4, 120750, GFR #### [address] [address] Iron Sat 38 % Normal [facility] Comment on above: Performed By: #### B 12, GLIAD, HBSAB, SMUSC, ADALI, 1HAVM, EBV, IGA, CERUL, HBSAG, ENDO, AFPS, CMV, GGT #### [place] [address] #### 003616, 957271, ANEU, LIPID, [id number], PRO, CBC, VIDH, TSH, APTT, ANAIFS, ADIFF, HFP, AHAVG, FERR, 318164, BMP, FES, FT4, 887995, GFR #### [address] [address] TIBC 367 mcg/dL Normal 250-450 [facility] Comment on above: Performed By: #### B 12, GLIAD, HBSAB, SMUSC, ADALI, 1HAVM, EBV, IGA, CERUL, HBSAG, ENDO, AFPS, CMV, GGT #### [place] [address] #### 360642, 774626, ANEU, LIPID, [id number], PRO, CBC, VIDH, TSH, APTT, ANAIFS, ADIFF, HFP, AHAVG, FERR, 751657, BMP, FES, FT4, 463432, GFR #### [address] [address] FT4on 05-11-2024 Free T4 [Mass/Vol] 0.71 ng/dL Low 0.76-1.46 [facility] Comment on above: Performed By: #### B 12, GLIAD, HBSAB, SMUSC, ADALI, 1HAVM, EBV, IGA, CERUL, HBSAG, ENDO, AFPS, CMV, GGT #### [address] [address] #### 371012, 149883, ANEU, LIPID, [id number], PRO, CBC, VIDH, TSH, APTT, ANAIFS, ADIFF, HFP, AHAVG, FERR, 703205, BMP, FES, FT4, 370300, GFR #### [address] [address] GGTon 05-11-2024 Gamma GT 61 U/L Normal 15-85 [facility] Comment on above: Performed By: #### B 12, GLIAD, HBSAB, SMUSC, ADALI, 1HAVM, EBV, IGA, CERUL, HBSAG, ENDO, AFPS, CMV, GGT #### [address] [address] #### 519435, 637761, ANEU, LIPID, [id number], PRO, CBC, VIDH, TSH, APTT, ANAIFS, ADIFF, HFP, AHAVG, FERR, 958323, BMP, FES, FT4, 533823, GFR #### [address] [address] HAVMon 05-11-2024 Hep A IgM Ab Non-Reactive Normal Non-Reactive [facility] Comment on above: Performed By: #### B 12, GLIAD, HBSAB, SMUSC, ADALI, 1HAVM, EBV, IGA, CERUL, HBSAG, ENDO, AFPS, CMV, GGT #### [address] [address] #### 329416, 927291, ANEU, LIPID, [id number], PRO, CBC, VIDH, TSH, APTT, ANAIFS, ADIFF, HFP, AHAVG, FERR, 420274, BMP, FES, FT4, 371427, GFR #### [place] [address] [place], [place] [address] Hep A IgM Ab Int Normal [facility] Comment on above: Result Comment: No s erological evidence of a current Hepatitis A infection. See Interp Performed By: #### B 12, GLIAD, HBSAB, SMUSC, ADALI, 1HAVM, EBV, IGA, CERUL, HBSAG, ENDO, AFPS, CMV, GGT #### [place] [id number] #### 918414, 898049, ANEU, LIPID, [id number], PRO, CBC, VIDH, TSH, APTT, ANAIFS, ADIFF, HFP, AHAVG, FERR, 254693, BMP, FES, FT4, 952144, GFR #### [place] [address] [place], [place] [address] HBSABon 05-11-2024 Hep B Surf Ab <3.1 Low >=10.0 [facility] Comment on above: Result Comment: 0 to < 10.0 mIU/mL Nonreactive Patient is considered not to have protective immunity to HBV infection >/= 10.0 mIU/mL Reactive Patient is considered to have protective immunity to HBV infection. This assay is traceable to the World Health Organization (WHO) Hepatitis B Immunoglobulin 1st International Reference Preparation (1976). The accepted criteria for immunity to HBV is anti-HBs activity >/= 10.0 mIU/mL, as defined by the WHO International Reference Preparation. Performed By: #### B 12, GLIAD, HBSAB, SMUSC, ADALI, 1HAVM, EBV, IGA, CERUL, HBSAG, ENDO, AFPS, CMV, GGT #### [address] [address] #### 565121, 216443, ANEU, LIPID, [id number], PRO, CBC, VIDH, TSH, APTT, ANAIFS, ADIFF, HFP, AHAVG, FERR, 527034, BMP, FES, FT4, 997387, GFR #### [place] [address] HBSAGon 05-11-2024 Hep B Surf Ag Non-Reactive Normal Non-Reactive [facility] Comment on above: Performed By: #### B 12, GLIAD, HBSAB, SMUSC, ADALI, 1HAVM, EBV, IGA, CERUL, HBSAG, ENDO, AFPS, CMV, GGT #### [place] [address] #### 054044, 219562, ANEU, LIPID, [id number], PRO, CBC, VIDH, TSH, APTT, ANAIFS, ADIFF, HFP, AHAVG, FERR, 374371, BMP, FES, FT4, 825777, GFR #### [place] [address] HCVon 05-11-2024 Hep C Ab Non-Reactive Normal Non-Reactive [facility] Comment on above: Performed By: #### B 12, GLIAD, HBSAB, SMUSC, ADALI, 1HAVM, EBV, IGA, CERUL, HBSAG, ENDO, AFPS, CMV, GGT #### [place] [address] #### 989936, 315291, ANEU, LIPID, [id number], PRO, CBC, VIDH, TSH, APTT, ANAIFS, ADIFF, HFP, AHAVG, FERR, 711667, BMP, FES, FT4, 404718, GFR #### [place] [address] Hep C Ab Int [facility] Comment on above: Result Comment: Nonr eactive: Samples with a value < 0.80 are considered nonreactive (negative) for antibodies to HCV. A negative test result does not exclude the possibility of exposure to or infection with HCV. HCV antibodies may be undetectable in some stages of the infection and in some clinical conditions. See Interp Performed By: #### B 12, GLIAD, HBSAB, SMUSC, ADALI, 1HAVM, EBV, IGA, CERUL, HBSAG, ENDO, AFPS, CMV, GGT #### [address] [address] #### 530904, 794386, ANEU, LIPID, [id number], PRO, CBC, VIDH, TSH, APTT, ANAIFS, ADIFF, HFP, AHAVG, FERR, 939225, BMP, FES, FT4, 286280, GFR #### [address] [address] HFPon 05-11-2024 Bili Indirect 0.6 mg/dL Normal [facility] Comment on above: Performed By: #### B 12, GLIAD, HBSAB, SMUSC, ADALI, 1HAVM, EBV, IGA, CERUL, HBSAG, ENDO, AFPS, CMV, GGT #### [place] [address] #### 355715, 808739, ANEU, LIPID, [id number], PRO, CBC, VIDH, TSH, APTT, ANAIFS, ADIFF, HFP, AHAVG, FERR, 932881, BMP, FES, FT4, 205532, GFR #### [address] [address] Albumin Level 3.9 G/dL Normal 3.5-5.0 [facility] Comment on above: Performed By: #### B 12, GLIAD, HBSAB, SMUSC, ADALI, 1HAVM, EBV, IGA, CERUL, HBSAG, ENDO, AFPS, CMV, GGT #### [place] [id number] #### 993180, 728802, ANEU, LIPID, [id number], PRO, CBC, VIDH, TSH, APTT, ANAIFS, ADIFF, HFP, AHAVG, FERR, 610080, BMP, FES, FT4, 561942, GFR #### [address] [address] Albumin/Globulin [Mass ratio] 1.0 {ratio} Low 1.1-2.5 [facility] Comment on above: Performed By: #### B 12, GLIAD, HBSAB, SMUSC, ADALI, 1HAVM, EBV, IGA, CERUL, HBSAG, ENDO, AFPS, CMV, GGT #### [address] [address] #### 1109[address], 390098, ANEU, LIPID, [id number], PRO, CBC, VIDH, TSH, APTT, ANAIFS, ADIFF, HFP, AHAVG, FERR, 509504, BMP, FES, FT4, 434051, GFR #### [address] [address] ALP [Catalytic activity/Vol] 67 U/L Normal 40-135 [facility] Comment on above: Performed By: #### B 12, GLIAD, HBSAB, SMUSC, ADALI, 1HAVM, EBV, IGA, CERUL, HBSAG, ENDO, AFPS, CMV, GGT #### [place] [address] #### 513881, 617724, ANEU, LIPID, [id number], PRO, CBC, VIDH, TSH, APTT, ANAIFS, ADIFF, HFP, AHAVG, FERR, 810242, BMP, FES, FT4, 541397, GFR #### [address] [address] ALT [Catalytic activity/Vol] 20 U/L Normal 16-63 [facility] Comment on above: Performed By: #### B 12, GLIAD, HBSAB, SMUSC, ADALI, 1HAVM, EBV, IGA, CERUL, HBSAG, ENDO, AFPS, CMV, GGT #### [place] [address] #### 688724, 358210, ANEU, LIPID, [id number], PRO, CBC, VIDH, TSH, APTT, ANAIFS, ADIFF, HFP, AHAVG, FERR, 356952, BMP, FES, FT4, 555516, GFR #### [address] [address] AST [Catalytic activity/Vol] 15 U/L Normal 10-40 [facility] Comment on above: Performed By: #### B 12, GLIAD, HBSAB, SMUSC, ADALI, 1HAVM, EBV, IGA, CERUL, HBSAG, ENDO, AFPS, CMV, GGT #### [address] [address] #### 491243, 770542, ANEU, LIPID, [id number], PRO, CBC, VIDH, TSH, APTT, ANAIFS, ADIFF, HFP, AHAVG, FERR, 789039, BMP, FES, FT4, 570406, GFR #### [address] [address] Bili Direct 0.2 mg/dL Normal 0.0-0.2 [facility] Comment on above: Result Comment: Use of this assay is not recommended for patients undergoing treatment with eltrombopag due to the potential for falsely elevated results. Performed By: #### B 12, GLIAD, HBSAB, SMUSC, ADALI, 1HAVM, EBV, IGA, CERUL, HBSAG, ENDO, AFPS, CMV, GGT #### [address] [address] #### 857914, 960475, ANEU, LIPID, [id number], PRO, CBC, VIDH, TSH, APTT, ANAIFS, ADIFF, HFP, AHAVG, FERR, 023247, BMP, FES, FT4, 328068, GFR #### [address] [address] Bili Total 0.8 mg/dL Normal 0.2-1.0 [facility] Comment on above: Result Comment: Use of this assay is not recommended for patients undergoing treatment with eltrombopag due to the potential for falsely elevated results. Performed By: #### B 12, GLIAD, HBSAB, SMUSC, ADALI, 1HAVM, EBV, IGA, CERUL, HBSAG, ENDO, AFPS, CMV, GGT #### [address] [address] #### 739794, 814401, ANEU, LIPID, [id number], PRO, CBC, VIDH, TSH, APTT, ANAIFS, ADIFF, HFP, AHAVG, FERR, 050501, BMP, FES, FT4, 650338, GFR #### [address] [address] Globulin 4.0 G/dL Normal [facility] Comment on above: Performed By: #### B 12, GLIAD, HBSAB, SMUSC, ADALI, 1HAVM, EBV, IGA, CERUL, HBSAG, ENDO, AFPS, CMV, GGT #### [address] [address] #### [id number], [id number], ANEU, LIPID, [id number], PRO, CBC, VIDH, TSH, APTT, ANAIFS, ADIFF, HFP, AHAVG, FERR, [id number], BMP, FES, FT4, [id number], GFR #### [address] [address] Total Protein 7.9 G/dL Normal 6.4-8.2 [facility] Comment on above: Performed By: #### B 12, GLIAD, HBSAB, SMUSC, ADALI, 1HAVM, EBV, IGA, CERUL, HBSAG, ENDO, AFPS, CMV, GGT #### [address] [address] #### [id number], [id number], ANEU, LIPID, [id number], PRO, CBC, VIDH, TSH, APTT, ANAIFS, ADIFF, HFP, AHAVG, FERR, [id number], BMP, FES, FT4, [id number], GFR #### [address] [address] IGAon 05-11-2024 IgA [Mass/Vol] 501 mg/dL High 40-350 [facility] Comment on above: Result Comment: No te - New Reference Range in effect 19 Performed By: #### B 12, GLIAD, HBSAB, SMUSC, ADALI, 1HAVM, EBV, IGA, CERUL, HBSAG, ENDO, AFPS, CMV, GGT #### [address] [address] #### [id number], [id number], ANEU, LIPID, [id number], PRO, CBC, VIDH, TSH, APTT, ANAIFS, ADIFF, HFP, AHAVG, FERR, [id number], BMP, FES, FT4, [id number], GFR #### [place] [address] [address] LABORATORYOrdered By: Natalya Zavala on 05-11-2024 HCV Ab IA Ql Non-Reactive (05/11/24 8:33 AM) Normal Non-Reactive AH ADM SS HCV Ab IA Ql Nonreactive: Samples with a value < 0.80 are considered nonreactive (negative) for antibodies to HCV.A negative test result does not exclude the possibility of exposure to or infection with HCV. HCV antibodies may be undetectable in some stages of the infection and in some clinical conditions. Invalid Interpretation Code Chemistry S HAV IgM IA Ql Non-Reactive (05/11/24 8:23 AM) Normal Non-Reactive AH ADM SS HAV IgM IA Ql No serological evide nce of a current Hepatitis A infection. Invalid Interpretation Code Chemistry S HBV surface Ab Qn (S) mIU/mL Low >=10.0mIU/mL AH ADM SS Comment on above: Interpretive Data: 0 to < 10.0 mIU/mL Nonreactive Patient is considered not to have protective immunity to HBV infection >/= 10.0 mIU/mL Reactive Patient is considered to have protective immunity to HBV infection. This assay is traceable to the World Health Organization (WHO) Hepatitis B Immunoglobulin 1st International Reference Preparation (1976). The accepted criteria for immunity to HBV is anti-HBs activity >/= 10.0 mIU/mL, as defined by the WHO International Reference Preparation. HBV surface Ag IA Ql Non-Reactive (05/11/24 8:23 AM) Normal Non-Reactive AH ADM SS LABORATORYOrdered By: SYSTEM SYSTEM on 05-11-2024 Albumin BCP dye [Mass/Vol] 3.9 G/dL Normal 3.5 - 5.0 G/dL AO ADM SS Albumin/Globulin [Mass ratio] 0.9 {ratio} Low 1.1 - 2.5 ratio AO ADM SS ALP [Catalytic activity/Vol] 65 U/L Normal 40 - 135 U/L AO ADM SS ALT With P-5'-P [Catalytic activity/Vol] 23 U/L Normal 16 - 63 U/L AO ADM SS AST With P-5'-P [Catalytic activity/Vol] 16 U/L Normal 10 - 40 U/L AO ADM SS Bilirubin [Mass/Vol] 0.9 mg/dL Normal 0.2 - 1 .0 mg/dL AO ADM SS Comment on above: Interpretive Data: U se of this assay is not recommended for patients undergoing treatment with eltrombopag due to the potential for falsely elevated results. Calcium [Mass/Vol] 9.4 mg/dL Normal 8.4 - 10. 2 mg/dL AO ADM SS Chloride [Moles/Vol] 98 mmol/L Normal 98 - 10 7 mmol/L AO ADM SS CO2 [Moles/Vol] 30 mmol/L High 22 - 29 mmol/L AO ADM SS Creatinine [Mass/Vol] 1.09 mg/dL Normal 0.70 - 1.30 mg/dL AO ADM SS Comment on above: Interpretive Data: T esting performed on Siemens Dimension EXL analyzer using a modified kinetic Tony technique. Electrolyte Balance 8.0 mEq/L Normal 4.0 - 15 .0 mEq/L AO ADM SS Estimated Glomerular Filtration Rate 79 ml/min/1.73sqm Invalid Interpretation Code AO Chemistry S Comment on above: Interpretive Data: Stages of Chronic Kidney Disease (CKD) Stage Description eGFR(ml/min/1.73 sq.m.) CKD 1 Normal kidney function or >=90 normal kindney function with possible kidney damage (ex. Proteinuria) CKD 2 Kidney damage with mild loss 60-89 of kidney function CKD 3a Mild to moderate loss of kidney 45-59 function CKD 3b Moderate to severe loss of 30-44 of kindey function CKD 4 Severe loss of kidney function 15-29 CKD 5 Kidney failure <15 Note: (go live 2024) the eGFR calculation was updated to the 2020 CKD-EPI creatinine equation without a race factor to calculate the eGFR results. Globulin 4.2 G/dL Invalid Interpretation Code AO ADM SS Glucose [Mass/Vol] 193 mg/dL High 70 - 105 mg/dL AO ADM SS Glucose [Mass/Vol] 151 mg/dL Invalid Interpretation Code AO Chemistry S Comment on above: Interpretive Data: E stimated average glucose (eAG) is a calculated value from Hemoglobin A1C and is pharmacy sales representative of the average blood glucose level in the last 2-3 month period. Normal range: less than 114 mg/dL HbA1c (Bld) [Mass fraction] 6.9 % High 4.3 - 6.4 % AO ADM SS Potassium [Moles/Vol] 4.7 mmol/L Normal 3.5 - 5.1 mmol/L AO ADM SS Protein [Mass/Vol] 8.1 G/dL Normal 6.4 - 8.2 G/dL AO ADM SS Sodium [Moles/Vol] 136 mmol/L Normal 136 - 145 mmol/L AO ADM SS Urea nitrogen [Mass/Vol] 23 mg/dL High 7 - 18 mg/dL AO ADM SS Urea nitrogen/Creatinine [Mass ratio] 21 ratio Normal 7 - 27 ratio AO ADM SS 25-hydroxyvitamin D3 [Mass/Vol] 7.3 ng/mL Invalid Interpretation Code AO ADM SS Comment on above: Interpretive Data: I nterpretive Values Based on Total 25(OH) Vitamin D: Deficient <20 ng/mL Insufficient 20 - <30 ng/mL Sufficient 30-100 ng/mL AFP [Mass/Vol] ng/mL Normal 0.0 - 8.5 ng/mL AH ADM SS Comment on above: Interpretive Data: T esting performed on the [employer] IM analyzer using direct chemiluminesent technology. Patient results determined by assays using different manufacturers for methods may not be comparable. Albumin BCP dye [Mass/Vol] 3.9 G/dL Normal 3.5 - 5.0 G/dL AO ADM SS Albumin/Globulin [Mass ratio] 1.0 {ratio} Low 1.1 - 2.5 ratio AO ADM SS ALP [Catalytic activity/Vol] 67 U/L Normal 40 - 135 U/L AO ADM SS ALT With P-5'-P [Catalytic activity/Vol] 20 U/L Normal 16 - 63 U/L AO ADM SS aPTT Coag (PPP) [Time] 27.6 s Normal 25.0 - 35.0 seconds AO [facility] SS Comment on above: Interpretive Data: F or Heparin anticoagulation therapy, the recommended therapeutic range is: 45.4-75.9 seconds. Patients on heparin therapy may have an extreme result. AST With P-5'-P [Catalytic activity/Vol] 15 U/L Normal 10 - 40 U/L AO ADM SS Basophils (Bld) [#/Vol] 0.0 103/mcL Normal 0.0 - 0.2 10^3/mcL AO Workflow SS Basophils/100 WBC (Bld) 0.5 % Normal 0.0 - 2.5 % AO Workflow SS Bilirubin [Mass/Vol] 0.8 mg/dL Normal 0.2 - 1 .0 mg/dL AO ADM SS Comment on above: Interpretive Data: U se of this assay is not recommended for patients undergoing treatment with eltrombopag due to the potential for falsely elevated results. Bilirubin.direct [Mass/Vol] 0.2 mg/dL Normal 0.0 - 0.2 mg/dL AO ADM SS Comment on above: Interpretive Data: U se of this assay is not recommended for patients undergoing treatment with eltrombopag due to the potential for falsely elevated results. Bilirubin.direct [Mass/Vol] 0.6 mg/dL Invalid Interpretation Code AO Chemistry S Calcium [Mass/Vol] 9.5 mg/dL Normal 8.4 - 10. 2 mg/dL AO ADM SS Ceruloplasmin [Mass/Vol] 27.0 mg/dL Normal 22.0 - 58.0 mg/dL AH ADM SS Chloride [Moles/Vol] 99 mmol/L Normal 98 - 10 7 mmol/L AO ADM SS CO2 [Moles/Vol] 30 mmol/L High 22 - 29 mmol/L AO ADM SS Cobalamin (Vitamin B12) [Mass/Vol] 471 pg/mL Normal 211 - 911 pg/mL AH ADM SS Creatinine [Mass/Vol] 1.10 mg/dL Normal 0.70 - 1.30 mg/dL AO ADM SS Comment on above: Interpretive Data: T esting performed on Siemens Dimension EXL analyzer using a modified kinetic Tony technique. Electrolyte Balance 7.0 mEq/L Normal 4.0 - 15 .0 mEq/L AO ADM SS Eosinophil, Absolute 0.2 103/mcL Normal 0.0 - 0 .7 10^3/mcL AO Workflow SS Eosinophils/100 WBC (Bld) 2.6 % Normal 0.0 - 7.0 % AO Workflow SS Erythrocyte distribution width (RBC) [Ratio] 13.5 % Normal 11.5 - 15.5 % AO Workflow SS Estimated Glomerular Filtration Rate 78 ml/min/1.73sqm Invalid Interpretation Code AO Chemistry S Comment on above: Interpretive Data: Stages of Chronic Kidney Disease (CKD) Stage Description eGFR(ml/min/1.73 sq.m.) CKD 1 Normal kidney function or >=90 normal kindney function with possible kidney damage (ex. Proteinuria) CKD 2 Kidney damage with mild loss 60-89 of kidney function CKD 3a Mild to moderate loss of kidney 45-59 function CKD 3b Moderate to severe loss of 30-44 of kindey function CKD 4 Severe loss of kidney function 15-29 CKD 5 Kidney failure <15 Note: (go live 2024) the eGFR calculation was updated to the 2020 CKD-EPI creatinine equation without a race factor to calculate the eGFR results. Ferritin [Mass/Vol] 149.0 ng/mL Normal 26.0 - 3 88.0 ng/mL AO ADM SS Free T4 [Mass/Vol] 0.71 ng/dL Low 0.76 - 1. 46 ng/dL AO ADM SS Gamma glutamyl transferase [Catalytic activity/Vol] 61 U/L Normal 15 - 85 U/L AH ADM SS Globulin 4.0 G/dL Invalid Interpretation Code AO ADM SS Glucose [Mass/Vol] 196 mg/dL High 70 - 105 mg/dL AO ADM SS Hematocrit (Bld) [Volume fraction] 48.8 % Normal 40.0 - 52.0 % AO Workflow SS Hemoglobin (Bld) [Mass/Vol] 16.7 G/dL Normal 13.0 - 17.5 G/dL AO Workflow SS IgA [Mass/Vol] 501 mg/dL High 40 - 350 mg/dL AH ADM SS Comment on above: Interpretive Data: * *Note - New Reference Range in effect 19 INR Coag (PPP) [Relative time] 0.9 {INR} Invalid Interpretation Code AO [facility] SS Comment on above: Interpretive Data: Lyle santiago [employer] [place] [employer] (CHEST, 1992, 102:312S-25S) recommended therapeutic range for oral anticoagulant therapy is: LOW RISK: Prophylaxis of venous thrombosis INR: 2.0-3.0 Treatment of pulmonary embolism 2.0-3.0 Prevention of systemic embolism 2.0-3.0 HIGH RISK: Mechanical prosthetic valves 2.5-3.5 Iron [Mass/Vol] 141 ug/dL Normal 65 - 175 mcg/dL AO ADM SS Iron binding capacity [Mass/Vol] 367 mcg/dL Normal 250 - 450 mcg/dL AO ADM SS Iron Sat 38 % Invalid Interpretation Code AO ADM SS Lymphocytes (Bld) [#/Vol] 0.8 103/mcL Low 0.9 - 4.3 10^3/mcL AO Workflow SS Lymphocytes/100 WBC (Bld) 10.6 % Low 20.0 - 40.0 % AO Workflow SS MCH (RBC) [Entitic mass] 31.5 pg Normal 27.0 - 33.0 pg AO Workflow SS MCHC 34.2 G/dL Normal 32.0 - 36.0 G/dL AO Workflow SS MCV (RBC) [Entitic vol] 92.2 fL Normal 81.0 - 100.0 fL AO Workflow SS Monocytes (Bld) [#/Vol] 0.5 103/mcL Normal 0.1 - 1.4 10^3/mcL AO Workflow SS Monocytes/100 WBC (Bld) 6.3 % Normal 2.0 - 13.0 % AO Workflow SS Neutrophils (Bld) [#/Vol] 6.2 103/mcL Normal 2.3 - 8.1 10^3/mcL AO Workflow SS Neutrophils/100 WBC (Bld) 80.0 % High 50.0 - 75.0 % AO Workflow SS Platelet mean volume (Bld) [Entitic vol] 8.0 fL Normal 6.4 - 10.5 fL AO Workflow SS Platelets (Bld) [#/Vol] 208 103/mcL Normal 150 - 450 10^3/mcL AO Workflow SS Potassium [Moles/Vol] 4.7 mmol/L Normal 3.5 - 5.1 mmol/L AO ADM SS Protein [Mass/Vol] 7.9 G/dL Normal 6.4 - 8.2 G/dL AO ADM SS PT Coag (PPP) [Time] 10.0 s Normal 9.0 - 1 4.4 seconds AO [facility] SS RBC (Bld) [#/Vol] 5.30 106/mcL Normal 4.50 - 6.0 0 10^6/mcL AO Workflow SS Sodium [Moles/Vol] 136 mmol/L Normal 136 - 145 mmol/L AO ADM SS TSH Qn 1.72 m[IU]/L Normal 0.36 - 3.74 mcIU/mL AO ADM SS Urea nitrogen [Mass/Vol] 22 mg/dL High 7 - 18 mg/dL AO ADM SS Urea nitrogen/Creatinine [Mass ratio] 20 ratio Normal 7 - 27 ratio AO ADM SS WBC (Bld) [#/Vol] 7.8 103/mcL Normal 4.5 - 10.8 10^3/mcL AO Workflow SS LABORATORYOrdered By: Eddie Sebastian on 05-11-2024 Ammonia (P) [Mass/Vol] umol/l Low 11 - 32 umol/L AO Chemistry S Cholesterol [Mass/Vol] 223 mg/dL High 0 - 200 mg/dL AO ADM SS Comment on above: Interpretive Data: C holesterol Reference Interval: Less than 200 Desirable 200-239 Borderline high risk 240 and above High risk Cholesterol in HDL [Mass/Vol] 43 mg/dL Normal 40 - 60 mg/dL AO ADM SS Cholesterol in LDL [Mass/Vol] 138 mg/dL High 0 - 130 mg/dL AO ADM SS Triglyceride [Mass/Vol] 211 mg/dL High 0 - 150 mg/dL AO ADM SS Comment on above: Interpretive Data: T riglyceride Reference Interval: Less than 150 Normal 150-199 Borderline high risk 200-499 High risk 500 or higher Very high risk Cholesterol [Mass/Vol] 227 mg/dL High 0 - 200 mg/dL AO ADM SS Comment on above: Interpretive Data: C holesterol Reference Interval: Less than 200 Desirable 200-239 Borderline high risk 240 and above High risk Cholesterol in HDL [Mass/Vol] 41 mg/dL Normal 40 - 60 mg/dL AO ADM SS Cholesterol in LDL [Mass/Vol] 144 mg/dL High 0 - 130 mg/dL AO ADM SS Triglyceride [Mass/Vol] 211 mg/dL High 0 - 150 mg/dL AO ADM SS Comment on above: Interpretive Data: T riglyceride Reference Interval: Less than 150 Normal 150-199 Borderline high risk 200-499 High risk 500 or higher Very high risk LABORATORYOrdered By: Silvio Ortiz on 05-11-2024 Fasting (LC) Y Yes (05/11/24 8:23 AM) Normal AO Sendouts SS LIPIDon 05-11-2024 Cholesterol [Mass/Vol] 227 mg/dL High 0-200 [facility] Comment on above: Result Comment: Chol esterol Reference Interval: Less than 200 Desirable 200-239 Borderline high risk 240 and above High risk Performed By: #### B 12, GLIAD, HBSAB, SMUSC, ADALI, 1HAVM, EBV, IGA, CERUL, HBSAG, ENDO, AFPS, CMV, GGT #### [address] [address] #### [id number], ANEU, LIPID, [id number], PRO, CBC, VIDH, TSH, APTT, ANAIFS, ADIFF, HFP, AHAVG, FERR, [id number], BMP, FES, FT4, [id number], GFR #### [address] [address] Cholesterol in HDL [Mass/Vol] 41 mg/dL Normal 40-60 [facility] Comment on above: Performed By: #### B 12, GLIAD, HBSAB, SMUSC, ADALI, 1HAVM, EBV, IGA, CERUL, HBSAG, ENDO, AFPS, CMV, GGT #### [address] [address] #### [id number], [id number], ANEU, LIPID, [id number], PRO, CBC, VIDH, TSH, APTT, ANAIFS, ADIFF, HFP, AHAVG, FERR, [id number], BMP, FES, FT4, 057000, GFR #### [address] [address] Cholesterol in LDL [Mass/Vol] 144 mg/dL High 0-130 [facility] Comment on above: Performed By: #### B 12, GLIAD, HBSAB, SMUSC, ADALI, 1HAVM, EBV, IGA, CERUL, HBSAG, ENDO, AFPS, CMV, GGT #### [address] [address] #### [id number], ANEU, LIPID, [id number], PRO, CBC, VIDH, TSH, APTT, ANAIFS, ADIFF, HFP, AHAVG, FERR, [id number], BMP, FES, FT4, 069122, GFR #### [address] [address] Triglyceride [Mass/Vol] 211 mg/dL High 0-150 [facility] Comment on above: Result Comment: Trig lyceride Reference Interval: Less than 150 Normal 150-199 Borderline high risk 200-499 High risk 500 or higher Very high risk Performed By: #### B 12, GLIAD, HBSAB, SMUSC, ADALI, 1HAVM, EBV, IGA, CERUL, HBSAG, ENDO, AFPS, CMV, GGT #### [address] [address] #### [id number], [id number], ANEU, LIPID, [id number], PRO, CBC, VIDH, TSH, APTT, ANAIFS, ADIFF, HFP, AHAVG, FERR, [id number], BMP, FES, FT4, 162724, GFR #### [address] [address] Cholesterol [Mass/Vol] 223 mg/dL High 0-200 [facility] Comment on above: Result Comment: Chol esterol Reference Interval: Less than 200 Desirable 200-239 Borderline high risk 240 and above High risk Performed By: #### B 12, GLIAD, HBSAB, SMUSC, ADALI, 1HAVM, EBV, IGA, CERUL, HBSAG, ENDO, AFPS, CMV, GGT #### [address] [address] #### [id number], [id number], ANEU, LIPID, [id number], PRO, CBC, VIDH, TSH, APTT, ANAIFS, ADIFF, HFP, AHAVG, FERR, 960729, BMP, FES, FT4, 240856, GFR #### [address] [address] Cholesterol in HDL [Mass/Vol] 43 mg/dL Normal 40-60 [facility] Comment on above: Performed By: #### B 12, GLIAD, HBSAB, SMUSC, ADALI, 1HAVM, EBV, IGA, CERUL, HBSAG, ENDO, AFPS, CMV, GGT #### [address] [address] #### [id number], 726179, ANEU, LIPID, [id number], PRO, CBC, VIDH, TSH, APTT, ANAIFS, ADIFF, HFP, AHAVG, FERR, [id number], BMP, FES, FT4, 318641, GFR #### [address] [address] Cholesterol in LDL [Mass/Vol] 138 mg/dL High 0-130 [facility] Comment on above: Performed By: #### B 12, GLIAD, HBSAB, SMUSC, ADALI, 1HAVM, EBV, IGA, CERUL, HBSAG, ENDO, AFPS, CMV, GGT #### [address] [address] #### [id number], 070844, ANEU, LIPID, [id number], PRO, CBC, VIDH, TSH, APTT, ANAIFS, ADIFF, HFP, AHAVG, FERR, [id number], BMP, FES, FT4, 254334, GFR #### [address] [address] Triglyceride [Mass/Vol] 211 mg/dL High 0-150 [facility] Comment on above: Result Comment: Trig lyceride Reference Interval: Less than 150 Normal 150-199 Borderline high risk 200-499 High risk 500 or higher Very high risk Performed By: #### B 12, GLIAD, HBSAB, SMUSC, ADALI, 1HAVM, EBV, IGA, CERUL, HBSAG, ENDO, AFPS, CMV, GGT #### [place] [address] #### [id number], 248665, ANEU, LIPID, [id number], PRO, CBC, VIDH, TSH, APTT, ANAIFS, ADIFF, HFP, AHAVG, FERR, 397925, BMP, FES, FT4, 874056, GFR #### [address] [address] PROon 05-11-2024 PT Coag (PPP) [Time] 10.0 s Normal 9.0-14.4 [facility] Comment on above: Performed By: #### B 12, GLIAD, HBSAB, SMUSC, ADALI, 1HAVM, EBV, IGA, CERUL, HBSAG, ENDO, AFPS, CMV, GGT #### [place] [id number] #### [id number], 905613, ANEU, LIPID, [id number], PRO, CBC, VIDH, TSH, APTT, ANAIFS, ADIFF, HFP, AHAVG, FERR, 598618, BMP, FES, FT4, 883261, GFR #### [address] [address] PT International Ratio 0.9 Normal [facility] Comment on above: Result Comment: [employer] [place] [employer] (CHEST, 1991, 102:312S-25S) recommended therapeutic range for oral anticoagulant therapy is: LOW RISK: Prophylaxis of venous thrombosis INR: 2.0-3.0 Treatment of pulmonary embolism 2.0-3.0 Prevention of systemic embolism 2.0-3.0 HIGH RISK: Mechanical prosthetic valves 2.5-3.5 Performed By: #### B 12, GLIAD, HBSAB, SMUSC, ADALI, 1HAVM, EBV, IGA, CERUL, HBSAG, ENDO, AFPS, CMV, GGT #### [place] [id number] #### [id number], 521661, ANEU, LIPID, [id number], PRO, CBC, VIDH, TSH, APTT, ANAIFS, ADIFF, HFP, AHAVG, FERR, 050662, BMP, FES, FT4, 967114, GFR #### [address] [address] TSHon 05-11-2024 TSH Qn 1.72 m[IU]/L Normal 0.36-3.74 [facility] Comment on above: Performed By: #### B 12, GLIAD, HBSAB, SMUSC, ADALI, 1HAVM, EBV, IGA, CERUL, HBSAG, ENDO, AFPS, CMV, GGT #### [place] [id number] #### [id number], 897795, ANEU, LIPID, [id number], PRO, CBC, VIDH, TSH, APTT, ANAIFS, ADIFF, HFP, AHAVG, FERR, 045693, BMP, FES, FT4, 756641, GFR #### [address] [address] VIDHon 05-11-2024 Vit. D 25-Hydroxy 7.3 ng/mL Normal [facility] Comment on above: Result Comment: Inte rpretive Values Based on Total 25(OH) Vitamin D: Deficient <20 ng/mL Insufficient 20 - <30 ng/mL Sufficient 30-100 ng/mL Performed By: #### B 12, GLIAD, HBSAB, SMUSC, ADALI, 1HAVM, EBV, IGA, CERUL, HBSAG, ENDO, AFPS, CMV, GGT #### [facility] [address] [place] [address] #### [id number], 914318, ANEU, LIPID, [id number], PRO, CBC, VIDH, TSH, APTT, ANAIFS, ADIFF, HFP, AHAVG, FERR, 914215, BMP, FES, FT4, 693811, GFR #### [facility] [address] [place], [place] [address] Basic Metabolic Profile (BMP )on 03-16-2024 BUN/CRE 18.3 RATIO Normal - [facility] Comment on above: Performed By: #### L 500.2500, L100.0100 #### [facility] [address] [place], [address] CA,Total 9.0 mg/dL Normal 8.5-10.1 [facility] Comment on above: Performed By: #### L 500.2500, L100.0100 #### [facility] [address] [place], [address] Chloride [Moles/Vol] 104 mmol/L Normal 98-107 [facility] Comment on above: Performed By: #### L 500.2500, L100.0100 #### [facility] [address] [place], [address] CO2 [Moles/Vol] 26.0 mmol/L Normal 21.0-32.0 [facility] Comment on above: Performed By: #### L 500.2500, L100.0100 #### [facility] [address] [place], [address] Creatinine [Mass/Vol] 0.98 mg/dL Normal 0.70-1.30 [facility] Comment on above: Result Comment: The validity of the calculated GFR GFRAA in patients over 70 years has not been determined. Clinical correlation is essential. Performed By: #### L 500.2500, L100.0100 #### [facility] [address] [place], [address] ECRCL 112.09 ml/min Normal [facility] Comment on above: Performed By: #### L 500.2500, L100.0100 #### [facility] [address] [place], [address] EST GFR - AA 101 mL/min Normal >60 [facility] Comment on above: Result Comment: Afri can [place] GFR Calc Performed By: #### L 500.2500, L100.0100 #### [facility] [address] [place], [address] GAP 7 Normal 5-15 [facility] Comment on above: Performed By: #### L 500.2500, L100.0100 #### [facility] [address] [place], [address] GFR/1.73 sq M.predicted among non-blacks MDRD (S/P/Bld) [Vol rate/Area] 83 mL/min/{1.73_m2} Normal >60 [facility] Comment on above: Result Comment: Non- GFR Calc Performed By: #### L 500.2500, L100.0100 #### [facility] [address] [place], [address] Glucose [Mass/Vol] 208 mg/dL High 74-106 [facility] Comment on above: Result Comment: Gluc ose result greater than or equal to 200 mg/dL suggests DIABETES MELLITUS per A.D.A. criteria. Performed By: #### L 500.2500, L100.0100 #### [facility] [address] [place], [address] Potassium [Moles/Vol] 4.1 mmol/L Normal 3.5-5.1 [facility] Comment on above: Performed By: #### L 500.2500, L100.0100 #### [facility] [address] [place], [address] Sodium [Moles/Vol] 137 mmol/L Normal 136-145 [facility] Comment on above: Performed By: #### L 500.2500, L100.0100 #### [facility] [address] [place], [address] Urea nitrogen [Mass/Vol] 18 mg/dL Normal 7-18 [facility] Comment on above: Performed By: #### L 500.2500, L100.0100 #### [facility] [address] [place], [address] CBC W/Diff, Automatedon 12-1 0-2024 Absolute Lymph 1.54 X10 3/uL Normal 0.83-4.51 [facility] Comment on above: Performed By: #### L 500.2500, L100.0100 #### [facility] [address] [place], [address] Absolute Neut 4.5 X10 3/uL Normal 2.0-7.7 [facility] Comment on above: Performed By: #### L 500.2500, L100.0100 #### [facility] [address] [place], [address] Basophils/100 WBC (Bld) 0.7 % Normal 0-1 [facility] Comment on above: Performed By: #### L 500.2500, L100.0100 #### [facility] [address] [place], [address] Eosinophils/100 WBC (Bld) 3.8 % Normal 0-5 [facility] Comment on above: Performed By: #### L 500.2500, L100.0100 #### [facility] [address] [place], [address] Erythrocyte distribution width (RBC) [Ratio] 12.8 % Normal 11.6-14.6 [facility] Comment on above: Performed By: #### L 500.2500, L100.0100 #### [facility] [address] [place], [address] Hematocrit (Bld) [Volume fraction] 45.2 % Normal 40-54 [facility] Comment on above: Performed By: #### L 500.2500, L100.0100 #### [facility] [address] [place], [address] Hemoglobin (Bld) [Mass/Vol] 15.5 g/dL Normal 13.0-16.5 [facility] Comment on above: Performed By: #### L 500.2500, L100.0100 #### [facility] [address] [place], [address] IG% 0.300 Normal 0.0-0.9 [facility] Comment on above: Result Comment: IG% - Immature Granulocytes (promyelocytes, myelocytes and metamyelocytes) > 1% indicates that a LEFT SHIFT is Present. Performed By: #### L 500.2500, L100.0100 #### [facility] [address] [place], [address] Lymphocytes/100 WBC (Bld) 21.9 % Normal 19-41 [facility] Comment on above: Performed By: #### L 500.2500, L100.0100 #### [facility] [address] [place], [address] MCH (RBC) [Entitic mass] 30.9 pg Normal 27.0-32.0 [facility] Comment on above: Performed By: #### L 500.2500, L100.0100 #### [facility] [address] [place], [address] MCHC (RBC) [Mass/Vol] 34.3 g/dL Normal 32-36 [facility] Comment on above: Performed By: #### L 500.2500, L100.0100 #### [facility] [address] [place], [address] MCV (RBC) [Entitic vol] 90.2 fL Normal 80-94 [facility] Comment on above: Performed By: #### L 500.2500, L100.0100 #### [facility] [address] [place], [address] Monocytes/100 WBC (Bld) 9.7 % Normal 0-10 [facility] Comment on above: Performed By: #### L 500.2500, L100.0100 #### [facility] [address] [place], [address] Neutrophils/100 WBC (Bld) 63.6 % Normal 47-70 [facility] Comment on above: Performed By: #### L 500.2500, L100.0100 #### [facility] [address] [place], [address] Nucleated RBC (Bld) [#/Vol] 0 10*3/uL Normal 0-5 [facility] Comment on above: Performed By: #### L 500.2500, L100.0100 #### [facility] [address] [place], [address] Platelet mean volume (Bld) [Entitic vol] 9.7 fL Normal 6.2-12.0 [facility] Comment on above: Performed By: #### L 500.2500, L100.0100 #### [facility] [address] [place], [address] Platelets (Bld) [#/Vol] 175 10*3/uL Normal 150-450 [facility] Comment on above: Performed By: #### L 500.2500, L100.0100 #### [facility] [address] [place], [address] RBC (Bld) [#/Vol] 5.01 10*6/uL Normal 4.6-6.2 [facility] [place] Comment on above: Performed By: #### L 500.2500, L100.0100 #### [facility] [address] [place], [address] RDW SD 41.8 fl Normal 35.1-43.9 [facility] Comment on above: Performed By: #### L 500.2500, L100.0100 #### [facility] [address] [place], [address] WBC (Bld) [#/Vol] 7.0 10*3/uL Normal 4.4-11.0 [facility] Comment on above: Performed By: #### L 500.2500, L100.0100 #### [facility] [address] [place], [address] Emergency Department Summary on 03-16-2024 Emergency Department Summary [facility] Medical Records Department [address] [place] [address] Emergency Department Summary 03/16/24 MR#: [id number] Acct: [id number] Name: YUSEF MUIR Jr. 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 Status:DEP ER Location: ED HPI History of Present Illness Chief Complaint: Eye Problem Informant: patient Onset/Context/Timing Location: Right Eye Onset: Today Context: Gradual Onset Timing: Continuous Worsened by: Nothing Relieved by: Nothing Associated Symptoms Associated Symptoms - Eyes: Crusting, Drainage, Eyelid swelling, Foreign body sensation, Matting and Redness; Negative for Burning, Itching, Pain or Photophobia Visual Changes: right: Blurred vision History of injury: No Visual correction: Glasses (Reading glasses as needed) Narrative Narrative: Patient presents with pain and swelling to his right eye that became worse tonight. Patient was seen here earlier today and was diagnosed with a stye. Patient states that after he got home he was watching TV and his eyelid became more swollen and he was having difficulty opening his right eye. Patient admits to some drainage from his right eye. Patient admits to some blurry vision out of his right eye. Patient admits to some matting and crusting of his eyelids. Patient denies any fevers or chills. [facility] Medical History (Updated 03/16/24 @ 22:[address] Abraham Kwon, DO) CHF (congestive heart failure) Meniscal injury ACL tear Biceps muscle tear Chronic pain Neuropathy Hypertension Diabetes Home Medications ???Medication ???Instructions ???Recorded ???Last Taken ???Type gabapentin 600 mg tablet 600 mg PO TID nerve pain 05/18/19 07/23/20 History cyclobenzaprine 10 mg tablet 10 mg PO TID PRN PRN Muscle Spasm 05/14/20 07/23/20 History simvastatin 10 mg tablet 10 mg PO DAILY cholesterol 05/14/20 07/23/20 History glimepiride 2 mg tablet 2 mg PO DAILY #30 TABLETS 07/24/20 Unknown Rx lisinopril 20 mg tablet 20 mg PO DAILY #30 tabs 07/24/20 Unknown Rx insulin glargine 100 unit/mL (3 20 unit subcut BID 01/26/21 01/26/21 History mL) subcutaneous pen (Lantus Solostar U-100 Insulin) furosemide 20 mg tablet 20 mg PO DAILY 06/29/23 Unknown History hydrocodone-acetaminophe n 5-325mg 1 tab PO Q6H PRN PRN Pain 3 days 06/29/23 Unknown Rx 5mg-325mg #10 TABLETS magnesium oxide 400 mg (241.3 mg 400 mg PO BID 06/29/23 Unknown History magnesium) tablet potassium chloride 20 mEq 20 meq PO DAILY 06/29/23 Unknown History tablet,extended release albuterol sulfate 90 mcg/actuation inhalation 08/24/23 Unknown History aerosol inhaler ammonium lactate 12 % topical cream 1 applic topical BID 08/24/23 Unknown History losartan 50 mg tablet 50 mg PO DAILY 08/24/23 Unknown History metformin 1,000 mg tablet 1,000 mg PO BID 08/24/23 Unknown History prednisone 5 mg tablet 5 mg PO DAILY 08/24/23 Unknown History ropinirole 1 mg tablet 1 mg PO QHS 08/24/23 Unknown History sacubitril 24 mg-valsartan 26 mg 1 tab PO BID 08/24/23 Unknown History tablet (Entresto) spironolactone 25 mg tablet 25 mg PO DAILY 08/24/23 Unknown History Allergy/AdvReac Type Severity Reaction Status Date / Time aspirin AdvReac NOSEBLEED Verified 03/16/24 19:00 Surgical History (Updated 03/16/24 @ 19:[address] Abraham Kwon DO) Hx of repair of rotator cuff Hx of arthroscopic knee surgery S/P ACL repair Social History Smoking Status: Former smoker ROS ROS ED Constitutional Constitutional ED: Denies chills or fever(s) Eyes Eyes: Denies blurry vision or change in vision ENT ENT ED: Denies rhinorrhea or sore throat Cardiovascular Cardiovascular: Reports chest pain; Denies palpitations Respiratory/Chest Respiratory/Chest: Denies cough or dyspnea Gastrointestinal Gastrointestinal: Denies nausea or vomiting Genitourinary Genitourinary ED: Denies dysuria or hematuria Musculoskeletal Musculoskeletal: Reports back pain; Denies neck pain Integumentary Denies abscess or rash Neurologic Neurologic: Denies headache(s) or weakness Allergic/Immunologic Allergic/Immunologic ED: Denies mouth swelling or urticaria EXAM Physical Exam Const Vital Signs: 03/16/24 17:33 Temperature 97.5 F L Temperature Source Temporal Pulse Rate 91 Respiratory Rate 18 Blood Pressure 175/101 H Blood Pressure Mean 125 Pulse Ox 98 Oxygen Delivery Method Room Air Positive well nourished and well developed General Appearance ED: well developed and NAD Eyes Eyes Narrative: Pupils are equal, round, and reactive to light bilaterally. Extraocular muscles are intact. Conjunctiva was injected on the right. There is some purulent discharge noted from the right eye (more content not included)... Normal [facility] Emergency Department Summary [facility] Medical Records Department [address] [place] [address] Emergency Department Summary 03/16/24 MR#: [id number] Acct: [id number] Name: YUSEF MUIR Jr. 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 Status:PRE ER Location: ED HPI History of Present Illness Chief Complaint: Eye Problem Detail of Chief Complaint: Right eye discharge, swelling and redness Informant: patient Onset/Context/Timing Location: Right Eye Onset: Yesterday Context: Sudden Onset Timing: Continuous Current Severity: Mild Maximum Severity: Moderate Worsened by: Nothing Relieved by: Nothing Associated Symptoms Associated Symptoms - Eyes: Crusting, Drainage, Eyelid swelling, Matting and Redness; Negative for Burning, Foreign body sensation, Itching, Pain or Photophobia Visual Changes: right: Blurred vision (Clears with blinking) History of injury: No Visual correction: None Narrative Narrative: Patient is a 58-year-old male. He has history of hypertension, hypercholesterolemia, type 2 diabetes who presents with right eye redness, swelling, and drainage. Symptoms started yesterday. He was seen in the past for eye problem i.e. several years ago. He is seeing ophthalmology because he states his vision goes all white. Workup was negative for any known cause. He presently denies double vision, blurred vision or loss of vision. He does endorse his eyelashes being matted closed this morning. He has not been around anyone with recent eye infection. He has no other complaints. Prior similar symptoms: Yes Recent Illness/Hospitalization: No PFSH [facility]LY [facility], [facility] Medical History CHF (congestive heart failure) Meniscal injury ACL tear Biceps muscle tear Chronic pain Neuropathy Hypertension Diabetes Home Medications ???Medication ???Instructions ???Recorded ???Last Taken ???Type gabapentin 600 mg tablet 600 mg PO TID nerve pain 05/18/19 07/23/20 History cyclobenzaprine 10 mg tablet 10 mg PO TID PRN PRN Muscle Spasm 05/14/20 07/23/20 History simvastatin 10 mg tablet 10 mg PO DAILY cholesterol 05/14/20 07/23/20 History glimepiride 2 mg tablet 2 mg PO DAILY #30 TABLETS 07/24/20 Unknown Rx lisinopril 20 mg tablet 20 mg PO DAILY #30 tabs 07/24/20 Unknown Rx insulin glargine 100 unit/mL (3 20 unit subcut BID 01/26/21 01/26/21 History mL) subcutaneous pen (Lantus Solostar U-100 Insulin) furosemide 20 mg tablet 20 mg PO DAILY 06/29/23 Unknown History hydrocodone-acetaminophe n 5-325mg 1 tab PO Q6H PRN PRN Pain 3 days 06/29/23 Unknown Rx 5mg-325mg #10 TABLETS magnesium oxide 400 mg (241.3 mg 400 mg PO BID 06/29/23 Unknown History magnesium) tablet potassium chloride 20 mEq 20 meq PO DAILY 06/29/23 Unknown History tablet,extended release albuterol sulfate 90 mcg/actuation inhalation 08/24/23 Unknown History aerosol inhaler ammonium lactate 12 % topical cream 1 applic topical BID 08/24/23 Unknown History losartan 50 mg tablet 50 mg PO DAILY 08/24/23 Unknown History metformin 1,000 mg tablet 1,000 mg PO BID 08/24/23 Unknown History prednisone 5 mg tablet 5 mg PO DAILY 08/24/23 Unknown History ropinirole 1 mg tablet 1 mg PO QHS 08/24/23 Unknown History sacubitril 24 mg-valsartan 26 mg 1 tab PO BID 08/24/23 Unknown History tablet (Entresto) spironolactone 25 mg tablet 25 mg PO DAILY 08/24/23 Unknown History Allergy/AdvReac Type Severity Reaction Status Date / Time aspirin AdvReac NOSEBLEED Verified 03/16/24 09:02 Social History Smoking Status: Former smoker ROS ROS ED Constitutional Constitutional ED: Denies chills, fever(s), subjective, sweats or weight loss Eyes Eyes: Reports other Details: Per HPI narrative ENT ENT ED: Denies ear pain, rhinorrhea or sore throat Integumentary Denies rash Neurologic Neurologic: Denies headache(s) EXAM Physical Exam Const Vital Signs: 03/16/24 08:59 Temperature 97.9 F Temperature Source Temporal Pulse Rate 83 Respiratory Rate 14 Blood Pressure 152/98 H Blood Pressure Mean 116 Pulse Ox 98 Oxygen Delivery Method Room Air Positive well nourished and well developed Constitutional Narrative: BMI is 35.6. General Appearance ED: well developed and NAD HEENT HEENT Narrative: There is no facial redness/cellulitis, induration, lymphangitis or preauricular lymphadenopathy. atraumatic; Negative for tenderness Nose: external nose normal and nares normal Eyes Eyes Narrative: Pupils are equal round reactive. Extract muscle intact. Sclera is slightly injected on the right. Conjunctive is injected with a whitish-yellow purulent drainage noted. There is also a hordeolum involving the lower lid with slight swelling. The (more content not included)... Normal [facility] Orb Sella Post Fossa Ear W/C ONon 03-16-2024 Orb Sella Post Fossa Ear W/CON [facility] Imaging Services [address] [place] [address] Orb Sella Post Fossa Ear W/CON MR#: [id number] Acct: [id number] Name: YUSEF MUIR JrMichael Rep #: [id number] : 1965 M 58 From: George Bravo PCP: CARLEE MCGREGOR IOS PROGRAMMERMahendra Status: DEP ER Study: Orb Sella Post Fossa Ear W/CON Date of Exam: 05/17/23 Exam# [id number] Ordering Dr: Abraham Kwon DO [id number] STUDY: CT ORBITS WITH CONTRAST REASON FOR EXAM: Male, 58 years old. eye pain -- Possible periorbital cellulitis RADIATION DOSAGE (If Supplied By Facility): CTDIvol = ( 29.38 ) mGy, DLP = ( 459.30 ) mGycm TECHNIQUE: The patient was scanned in a multi detector CT scanner. Transaxial imaging was performed following the intravenous administration of IV 100mL Isovue-370. Sagittal and coronal images were reconstructed. Individualized dose optimization techniques were used for this CT. The protocol utilizes one or more of the following dose reduction techniques: automated exposure control, adjustment of mA and/or kV according to patient size,and/or use of iterative reconstruction technique. COMPARISON: None. FINDINGS: Normal globes. Normal intraconal spaces. Normal optic nerve sheath complex. Normal bilateral extraocular muscles. Normal lacrimal glands. Normal bilateral medial and inferior orbital traore. Normal bilateral maxillary bones. Old nasal bone fractures. Normal bilateral frontozygomatic arches. Normal bilateral zygomatic temporal arches. Frontal sinuses opacified. Fluid in the ethmoid air cells. Maxillary sinus mucosal thickening. Normal sphenoid sinuses. There is soft tissue swelling right lower leg. Extensive dental caries and periapical lucencies. There is no demonstrated abnormal enhancement. CT/Orb Sella Post Fossa Ear W/CON IMPRESSION: Soft tissue swelling and hemorrhage right lower lip. Frontal Sinusitis. Electronically Signed: George Haro MD at 22:05 EST , CC: Dr. Abraham Kwon DO; CARLEE IOS PROGRAMMER-C MECHE Switchbox Assembler: Signed Normal [facility] Carotid Duplex Ultrasoundon 11-24-2023 Carotid Duplex Ultrasound [facility] Cardiovascular Services [address] [place] [address] Carotid Duplex Ultrasound 11/24/23 0803 MR#: [id number] Acct: [id number] Name: YUSEF MUIR JrMichael Rep #: [id number] : 1965 58 From: Roly Garcia MD Attending Dr: Dr. Raj Olmedo MD Status: REG CLI Ordering Dr: Raj Olmedo MD Date: 11/24/23 Location: [facility] Sex: M C Admitted: Reason For Study: Retinal ischemia Rt. Velocities/BP Lt. Velocities/BP Prox CCA 96.1/16.3 cm/sec. Prox CCA 89.1/16.3 cm/sec. Mid CCA 96.1/22.5 cm/sec. Mid CCA 88.3/16.8 cm/sec. Dist CCA 85.1/21.2 cm/sec. Dist CCA 93.8/16.8 cm/sec. Prox ICA 64.5/17.3 cm/sec. Prox ICA 45.4/11.3 cm/sec. Mid ICA 64.5/25.8 cm/sec. Mid ICA 59.7/23.4 cm/sec. Dist ICA 57.9/25.8 cm/sec. Dist ICA 51.3/20.1 cm/sec. Rt. ICA/CCA = 0.67. Lt. ICA/CCA = 0.68. Prox ECA 117/6.5 cm/sec. Prox ECA 90.5/5.8 cm/sec. Rt. Vert. 31.5/10.7 cm/sec. Lt. Vert. 43.6/14.4 cm/sec. Right Extracranial There is intimal thickening but no significant atherosclerotic plaque noted in the right common carotid artery. There is heterogeneous, smooth atherosclerotic plaque noted in the right internal carotid artery. There is intimal thickening but no significant atherosclerotic plaque noted in the right external carotid artery. Antegrade flow is noted in the right vertebral artery. Left Extracranial There is intimal thickening but no significant atherosclerotic plaque noted in the left common carotid artery. There is heterogeneous, smooth atherosclerotic plaque noted in the left internal carotid artery. There is intimal thickening but no significant atherosclerotic plaque noted in the left external carotid artery. Antegrade flow is noted in the left vertebral artery. Procedure Carotid Duplex 44919. This is a Carotid Duplex examination using B-mode, color flow and specral Doppler. Exam performed in department. VL/Carotid Duplex Ultrasound Interpretation Summary Mild (<50%) stenosis right extracranial internal carotid. Mild (<50%) stenosis left extracranial internal carotid. Flow within the vertebral arteries is antegrade bilaterally. Ordering Physician: Raj Olmedo Referring Physician: Carlee Mcgregor Performed By: Puja Mejia RVT 11/25/232012 Date Roly Garcia MD CC: Dr. Raj Olmedo MD; CARLEE RADER MECHE Date Dictated: 11/24/23802 Date Transcribed: 11/25/232012 Switchbox Assembler: Signed [facility] .GFRon 11-10-2023 GFR 80 ml/min/1.73sqm [facility] ([place]) Comment on above: Result Comment: GFR Population mean for , Non- Americans Ages 20-29 = 116 mL/min/1.73 sq.m. Ages 30-39 = 107 mL/min/1.73 sq.m. Ages 40-49 = 99 mL/min/1.73 sq.m. Ages 50-59 = 93 mL/min/1.73 sq.m. Ages 60-69 = 85 mL/min/1.73 sq.m. Ages 70+ = 75 mL/min/1.73 sq.m.Chronic Kidney Disease: Less than 60 mL/min/1.73 square metersEnd Stage Renal Disease: Less than 15 mL/min/1.73 square meters Performed By: #### G FR, A1C, LIPID, CMP ####[address] [place], [place] [address] GFR Non- 66 ml/min/1.73sqm [facility] ([place]) Comment on above: Result Comment: GFR Population mean for , Non- Americans Ages 20-29 = 116 mL/min/1.73 sq.m. Ages 30-39 = 107 mL/min/1.73 sq.m. Ages 40-49 = 99 mL/min/1.73 sq.m. Ages 50-59 = 93 mL/min/1.73 sq.m. Ages 60-69 = 85 mL/min/1.73 sq.m. Ages 70+ = 75 mL/min/1.73 sq.m.Chronic Kidney Disease: Less than 60 mL/min/1.73 square metersEnd Stage Renal Disease: Less than 15 mL/min/1.73 square meters Performed By: #### G FR, A1C, LIPID, CMP ####[address] [place], [place] [address] A1Con 11-10-2023 Glucose [Mass/Vol] 189 mg/dL Normal [facility] ([place]) Comment on above: Result Comment: Ida mated Average Glucose calculated by equation ((28.7xA1C)-46.7)Estimated average glucose (eAG) is a calculated value from Hemoglobin A1C and is pharmacy sales representative of the average blood glucoselevel in the last 2-3 month period.Normal range: less than 114 mg/dL Performed By: #### G FR, A1C, LIPID, CMP ####[address] [place], [place] [address] HbA1c (Bld) [Mass fraction] 8.2 % High 4.3-6.4 [facility] ([place]) Comment on above: Performed By: #### G FR, A1C, LIPID, CMP ####[address] [place], [place] [address] CMPon 11-10-2023 Albumin Level 4.0 G/dL Normal 3.5-5.0 [facility] ([place]) Comment on above: Performed By: #### G FR, A1C, LIPID, CMP ####[address] [place], [place] [address] Albumin/Globulin [Mass ratio] 1.1 {ratio} Normal 1.1-2.5 [facility] ([place]) Comment on above: Performed By: #### G FR, A1C, LIPID, CMP ####[address] [place], [place] [address] ALP [Catalytic activity/Vol] 72 U/L Normal 40-135 [facility] ([place]) Comment on above: Performed By: #### G FR, A1C, LIPID, CMP ####[address] [place], [place] [address] ALT [Catalytic activity/Vol] 20 U/L Normal 16-63 [facility] ([place]) Comment on above: Performed By: #### G FR, A1C, LIPID, CMP ####[address] [place], [place] [address] AST [Catalytic activity/Vol] 19 U/L Normal 10-40 [facility] ([place]) Comment on above: Performed By: #### G FR, A1C, LIPID, CMP ####[address] [place], [place] [address] Bili Total 2.4 mg/dL High 0.2-1.0 [facility] ([place]) Comment on above: Result Comment: Use of this assay is not recommended for patients undergoing treatment with eltrombopag due to the potential for falsely elevated results. Performed By: #### G FR, A1C, LIPID, CMP ####[address] [place], [place] [address] BUN/Creatinine Ratio 11 ratio Normal 7-27 [facility] ([place]) Comment on above: Performed By: #### G FR, A1C, LIPID, CMP ####[address] [place], [place] [address] Calcium [Mass/Vol] 9.3 mg/dL Normal 8.4-10.2 [facility] ([place]) Comment on above: Performed By: #### G FR, A1C, LIPID, CMP ####[address] [place], [place] [address] Chloride [Moles/Vol] 100 mmol/L Normal 98-107 [facility] ([place]) Comment on above: Performed By: #### G FR, A1C, LIPID, CMP ####[address] [place], [place] [address] CO2 [Moles/Vol] 32 mmol/L High 22-29 [facility] ([place]) Comment on above: Performed By: #### G FR, A1C, LIPID, CMP ####[address] [place], [place] [address] Creatinine [Mass/Vol] 1.14 mg/dL Normal 0.70-1.30 [facility] ([place]) Comment on above: Performed By: #### G FR, A1C, LIPID, CMP ####[address] [place], [place] [address] Electrolyte Balance 7.0 mEq/L Normal 4.0-15.0 [facility] ([place]) Comment on above: Performed By: #### G FR, A1C, LIPID, CMP ####[address] [place], [place] [address] Globulin 3.6 G/dL Normal [facility] ([place]) Comment on above: Performed By: #### G FR, A1C, LIPID, CMP ####[address] [place], [place] [address] Glucose [Mass/Vol] 182 mg/dL High 70-105 [facility] ([place]) Comment on above: Performed By: #### G FR, A1C, LIPID, CMP ####[address] [place], [place] [address] Potassium [Moles/Vol] 5.4 mmol/L High 3.5-5.1 [facility] ([place]) Comment on above: Performed By: #### Kyle FR, A1C, LIPID, CMP ####[address] [place], [place] [address] Sodium [Moles/Vol] 139 mmol/L Normal 136-145 [facility] ([place]) Comment on above: Performed By: #### G FR, A1C, LIPID, CMP ####[address] [place], [place] [address] Total Protein 7.6 G/dL Normal 6.4-8.2 [facility] ([place]) Comment on above: Performed By: #### Kyle FR, A1C, LIPID, CMP ####[address] [place], [place] [address] Urea nitrogen [Mass/Vol] 13 mg/dL Normal 7-18 [facility] ([place]) Comment on above: Performed By: #### G FR, A1C, LIPID, CMP ####[place] [address] [place], [place] [address] LABORATORYOrdered By: Acacia Hickey on 11-10-2023 Albumin DL <= 20 mg/L (U) [Mass/Vol] 6056 mcg/dL Invalid Interpretation Code AO ADM SS Albumin/Creatinine DL <= 20 mg/L (U) [Mass ratio] 209 mcg/mg High 0 - 30 mcg/mg AO ADM SS Creatinine (U) [Mass/Vol] 29.0 mg/dL Low 39.0 - 259.0 mg/dL AO ADM SS Cholesterol [Mass/Vol] 211 mg/dL High 0 - 200 mg/dL AO ADM SS Comment on above: Interpretive Data: C holesterol Reference Interval: Less than 200 Desirable 200-239 Borderline high risk 240 and above High risk Cholesterol in HDL [Mass/Vol] 49 mg/dL Normal 40 - 60 mg/dL AO ADM SS Cholesterol in LDL [Mass/Vol] 137 mg/dL High 0 - 130 mg/dL AO ADM SS Triglyceride [Mass/Vol] 124 mg/dL Normal 0 - 150 mg/dL AO ADM SS Comment on above: Interpretive Data: T riglyceride Reference Interval: Less than 150 Normal 150-199 Borderline high risk 200-499 High risk 500 or higher Very high risk LABORATORYOrdered By: SYSTEM SYSTEM on 11-10-2023 Albumin BCP dye [Mass/Vol] 4.0 G/dL Normal 3.5 - 5.0 G/dL AO ADM SS Albumin/Globulin [Mass ratio] 1.1 {ratio} Normal 1.1 - 2.5 ratio AO ADM SS ALP [Catalytic activity/Vol] 72 U/L Normal 40 - 135 U/L AO ADM SS ALT With P-5'-P [Catalytic activity/Vol] 20 U/L Normal 16 - 63 U/L AO ADM SS AST With P-5'-P [Catalytic activity/Vol] 19 U/L Normal 10 - 40 U/L AO ADM SS Bilirubin [Mass/Vol] 2.4 mg/dL High 0.2 - 1 .0 mg/dL AO ADM SS Comment on above: Interpretive Data: U se of this assay is not recommended for patients undergoing treatment with eltrombopag due to the potential for falsely elevated results. Calcium [Mass/Vol] 9.3 mg/dL Normal 8.4 - 10. 2 mg/dL AO ADM SS Chloride [Moles/Vol] 100 mmol/L Normal 98 - 10 7 mmol/L AO ADM SS CO2 [Moles/Vol] 32 mmol/L High 22 - 29 mmol/L AO ADM SS Creatinine [Mass/Vol] 1.14 mg/dL Normal 0.70 - 1.30 mg/dL AO ADM SS Electrolyte Balance 7.0 mEq/L Normal 4.0 - 15 .0 mEq/L AO ADM SS GFR/1.73 sq M.predicted among blacks MDRD (S/P/Bld) [Vol rate/Area] 80 ml/min/1.73sqm Invalid Interpretation Code AO Chemistry S Comment on above: Interpretive Data: GFR Population mean for , Non- Americans Ages 20-29 = 116 mL/min/1.73 sq.m. Ages 30-39 = 107 mL/min/1.73 sq.m. Ages 40-49 = 99 mL/min/1.73 sq.m. Ages 50-59 = 93 mL/min/1.73 sq.m. Ages 60-69 = 85 mL/min/1.73 sq.m. Ages 70+ = 75 mL/min/1.73 sq.m. Chronic Kidney Disease: Less than 60 mL/min/1.73 square meters End Stage Renal Disease: Less than 15 mL/min/1.73 square meters GFR/1.73 sq M.predicted among non-blacks MDRD (S/P/Bld) [Vol rate/Area] 66 ml/min/1.73sqm Invalid Interpretation Code AO Chemistry S Comment on above: Interpretive Data: GFR Population mean for , Non- Americans Ages 20-29 = 116 mL/min/1.73 sq.m. Ages 30-39 = 107 mL/min/1.73 sq.m. Ages 40-49 = 99 mL/min/1.73 sq.m. Ages 50-59 = 93 mL/min/1.73 sq.m. Ages 60-69 = 85 mL/min/1.73 sq.m. Ages 70+ = 75 mL/min/1.73 sq.m. Chronic Kidney Disease: Less than 60 mL/min/1.73 square meters End Stage Renal Disease: Less than 15 mL/min/1.73 square meters Globulin 3.6 G/dL Invalid Interpretation Code AO ADM SS Glucose [Mass/Vol] 182 mg/dL High 70 - 105 mg/dL AO ADM SS Glucose [Mass/Vol] 189 mg/dL Invalid Interpretation Code AO Chemistry S Comment on above: Interpretive Data: E stimated average glucose (eAG) is a calculated value from Hemoglobin A1C and is pharmacy sales representative of the average blood glucose level in the last 2-3 month period. Normal range: less than 114 mg/dL HbA1c (Bld) [Mass fraction] 8.2 % High 4.3 - 6.4 % AO ADM SS Potassium [Moles/Vol] 5.4 mmol/L High 3.5 - 5.1 mmol/L AO ADM SS Protein [Mass/Vol] 7.6 G/dL Normal 6.4 - 8.2 G/dL AO ADM SS Sodium [Moles/Vol] 139 mmol/L Normal 136 - 145 mmol/L AO ADM SS Urea nitrogen [Mass/Vol] 13 mg/dL Normal 7 - 18 mg/dL AO ADM SS Urea nitrogen/Creatinine [Mass ratio] 11 ratio Normal 7 - 27 ratio AO ADM SS LIPIDon 11-10-2023 Cholesterol [Mass/Vol] 211 mg/dL High 0-200 [facility] ([place]) Comment on above: Result Comment: Chol esterol Reference Interval:Less than 200 [id number] Borderline high [id number] and above High risk Performed By: #### G FR, A1C, LIPID, CMP ####[place] [address] [place], [place] [address] Cholesterol in HDL [Mass/Vol] 49 mg/dL Normal 40-60 [facility] ([place]) Comment on above: Performed By: #### Kyle FR, A1C, LIPID, CMP ####[place] [address] [place], [place] [address] Cholesterol in LDL [Mass/Vol] 137 mg/dL High 0-130 [facility] ([place]) Comment on above: Performed By: #### Kyle FR, A1C, LIPID, CMP ####[place] [address] [place], [place] [address] Triglyceride [Mass/Vol] 124 mg/dL Normal 0-150 [facility] ([place]) Comment on above: Result Comment: Trig lyceride Reference Interval:Less than 150 [id number] Borderline high [id number] High sing437 or higher Very high risk Performed By: #### G FR, A1C, LIPID, CMP ####[place] [address] [place], [place] [address] MALBRon 11-10-2023 U Creatinine 29.0 mg/dL Low 39.0-259.0 [facility] ([place]) Comment on above: Performed By: #### M ALBR ####[place] [address] [place], [place] [address] U Microalb 6056 mcg/dL Normal [facility] ([place]) Comment on above: Performed By: #### M ALBR ####[place] [address] [place], [place] [address] U Ratio Alb/Cre 209 mcg/mg High 0-30 [facility] ([place]) Comment on above: Performed By: #### M ALBR ####[place] [address] [place], [place] [address] CBLon 11-03-2023 CBL Normal [facility] ([place]) CBL Normal [facility] ([place]) BCIDon 11-01-2023 Acinetobacter alecia-baumanii complex Not detected Normal Not Detected [facility] ([place]) Comment on above: Performed By: #### B ERASTO ####[place] [address] Bacteroides fragilis Not detected Normal Not Detected [facility] ([place]) Comment on above: Performed By: #### B ERASTO ####[place] [address] BCID Comment See Comment Normal [facility] ([place]) Comment on above: Result Comment: Anti microbial resistance can occur via multiple mechanisms. A Not Detected result for antimicrobial resistance gene(s) does not indicate antimicrobial susceptibility. Culture identification and susceptibility results to follow.If BCID panel was negative (Not Detected) for all targets, thisdoes not exclude a blood stream infection. Our blood culture system detectedgrowth. Culture identification and susceptibility testing (if appropriate) tofollow. Performed By: #### B ERASTO ####[place] [address] Lala albicans Not detected Normal Not Detected [facility] ([place]) Comment on above: Performed By: #### B ERASTO ####[place] [address] Lala auris Not detected Normal Not Detected [facility] ([place]) Comment on above: Performed By: #### B ERASTO ####[place] [address] Lala glabrata Not detected Normal Not Detected [facility] ([place]) Comment on above: Performed By: #### B ERASTO ####[place] [address] Lala krusei Not detected Normal Not Detected [facility] ([place]) Comment on above: Performed By: #### B ERASTO ####[place] [address] Lala parapsilosis Not detected Normal Not Detected [facility] ([place]) Comment on above: Performed By: #### B ERASTO ####[place] [address] Lala tropicalis Not detected Normal Not Detected [facility] ([place]) Comment on above: Performed By: #### B ERASTO ####[place] [address] Cryptococcus neoformans-gattii Not detected Normal Not Detected [facility] ([place]) Comment on above: Performed By: #### B ERASTO ####[place] [address] CTX-M (ESBL) Not Applicable Normal Not Detected [facility] ([place]) Comment on above: Performed By: #### B ERASTO ####[place] [address] E. Coli Not detected Normal Not Detected [facility] ([place]) Comment on above: Performed By: #### B ERASTO ####[place] [address] Enterobacter cloacae Complex Not detected Normal Not Detected [facility] ([place]) Comment on above: Performed By: #### B ERASTO ####[place] [place] [address] Enterobacterales Not detected Normal Not Detected [facility] ([place]) Comment on above: Performed By: #### B ERASTO ####[place] [address] Enterococcus faecalis Not detected Normal Not Detected [facility] ([place]) Comment on above: Performed By: #### B EARSTO ####[place] [address] Enterococcus faecium Not detected Normal Not Detected [facility] ([place]) Comment on above: Performed By: #### B ERASTO ####[place] [address] Haemophilus influenzae Not detected Normal Not Detected [facility] ([place]) Comment on above: Performed By: #### B ERASTO ####[place] [address] IMP (Carbapenemase) Not Applicable Normal Not Detected [facility] ([place]) Comment on above: Performed By: #### B ERASTO ####[place] [address] Klebsiella aerogenes Not detected Normal Not Detected [facility] ([place]) Comment on above: Performed By: #### B ERASTO ####[place] [address] Klebsiella oxytoca Not detected Normal Not Detected [facility] ([place]) Comment on above: Performed By: #### B ERASTO ####[place] [address] Klebsiella pneumoniae group Not detected Normal Not Detected [facility] ([place]) Comment on above: Performed By: #### B ERASTO ####[place] [address] KPC (Carbapenemase) Not Applicable Normal Not Detected [facility] ([place]) Comment on above: Performed By: #### B ERASTO ####[place] [address] Listeria monocytogenes Not detected Normal Not Detected [facility] ([place] Comment on above: Performed By: #### B ERASTO ####[place] [address] MCR-1 (Colistin Resistance) Not Applicable Normal Not Detected [facility] ([place] Comment on above: Performed By: #### B ERASTO ####[place] [address] Mec A/C Not Applicable Normal Not Detected [facility] ([place] Comment on above: Performed By: #### B ERASTO ####[place] [address] Mec A/C-MREJ (MRSA) Not Applicable Normal Not Detected [facility] ([place] Comment on above: Performed By: #### B ERASTO ####[place] [address] NDM (Carbapenemase) Not Applicable Normal Not Detected [facility] ([place]) Comment on above: Performed By: #### B ERASTO ####[address] [address] Neisseria meningitidis (Encapsalated) Not detected Normal Not Detected [facility] ([place] Comment on above: Performed By: #### B ERASTO ####[place] [address] OXA-48 like (Carbapenemase) Not Applicable Normal Not Detected [facility] ([place] Comment on above: Performed By: #### B ERASTO ####[place] [address] Proteus Not detected Normal Not Detected [facility] ([place]) Comment on above: Performed By: #### B ERASTO ####[place] [address] Pseudomonas aeruginosa Not detected Normal Not Detected [facility] ([place]) Comment on above: Performed By: #### B ERASTO ####[place] [address] S. agalactiae Org specific cx Ql (Vag fld) Not detected Normal Not Detected [facility] ([place] Comment on above: Performed By: #### B ERASTO ####[place] [address] Salmonella species Not detected Normal Not Detected [facility] ([place]) Comment on above: Performed By: #### B ERASTO ####[place] [address] Serratia marcescens Not detected Normal Not Detected [facility] ([place]) Comment on above: Performed By: #### B ERASTO ####[place] [address] Staphylococcus Not detected Normal Not Detected [facility] ([place]) Comment on above: Performed By: #### B ERASTO ####[place] [address] Staphylococcus aureus Not detected Normal Not Detected [facility] ([place]) Comment on above: Result Comment: If S taphylococcus aureus is Detected, an Infectious Disease physician consult is required on identification. Performed By: #### B ERASTO ####[place] [address] Staphylococcus epidermidis Not detected Normal Not Detected [facility] ([place] Comment on above: Performed By: #### B ERASTO ####[place] [address] Staphylococcus lugdunensis Not detected Normal Not Detected [facility] ([place] Comment on above: Performed By: #### B ERASTO ####[place] [address] Stenotrophomonas maltophilia Not detected Normal Not Detected [facility] ([place]) Comment on above: Performed By: #### B ERASTO ####[place] [address] Streptococcus Not detected Normal Not Detected [facility] ([place] Comment on above: Performed By: #### B ERASTO ####[place] [address] Streptococcus pneumoniae Not detected Normal Not Detected [facility] ([place] Comment on above: Performed By: #### B ERASTO ####[place] [address] Streptococcus pyogenes Not detected Normal Not Detected [facility] ([place] Comment on above: Performed By: #### B ERASTO ####[place] [address] Van A/B Not Applicable Normal Not Detected [facility] ([place] Comment on above: Performed By: #### B ERASTO ####[place] [address] VIM (Carbapenemase) Not Applicable Normal Not Detected [facility] ([place]) Comment on above: Performed By: #### B ERASTO ####[place] [address] .Auto Diffon 10-28-2023 Basophil, Absolute 0.1 10 3/mcL Normal 0.0-0.2 [facility] ([place]) Comment on above: Performed By: #### C MP, ADIFF, ALC, LAC, MDW, CBC, GFR, ANEU ####[place] [address] [place], [place] [address] Basophils/100 WBC (Bld) 0.7 % Normal 0.0-2.5 [facility] ([place]) Comment on above: Performed By: #### C MP, ADIFF, ALC, LAC, MDW, CBC, GFR, ANEU ####[place] [address] [place], [place] [address] Eosinophil, Absolute 0.2 10 3/mcL Normal 0.0-0.4 [facility] ([place]) Comment on above: Performed By: #### C MP, ADIFF, ALC, LAC, MDW, CBC, GFR, ANEU ####[place] [address] [place], [place] [address] Eosinophils/100 WBC (Bld) 2.3 % Normal 0.0-7.0 [facility] ([place]) Comment on above: Performed By: #### C MP, ADIFF, ALC, LAC, MDW, CBC, GFR, ANEU ####[place] [address] [place], [place] [address] Lymphocyte, Absolute 2.1 10 3/mcL Normal 0.8-3.9 [facility] ([place]) Comment on above: Performed By: #### C MP, ADIFF, ALC, LAC, MDW, CBC, GFR, ANEU ####[place] [address] [place], [place] [address] Lymphocytes/100 WBC (Bld) 21.5 % Normal 10.0-50.0 [facility] ([place]) Comment on above: Performed By: #### C MP, ADIFF, ALC, LAC, MDW, CBC, GFR, ANEU ####[place] [address] [place], [place] [address] Monocyte, Absolute 1.1 10 3/mcL High 0.2-1.0 [facility] ([place]) Comment on above: Performed By: #### C MP, ADIFF, ALC, LAC, MDW, CBC, GFR, ANEU ####[place] [address] [place], [place] [address] Monocytes/100 WBC (Bld) 10.7 % Normal 1.7-13.0 [facility] ([place]) Comment on above: Performed By: #### C MP, ADIFF, ALC, LAC, MDW, CBC, GFR, ANEU ####[place] [address] [place], [place] [address] Neutrophils/100 WBC (Bld) 64.8 % Normal 37.0-80.0 [facility] ([place]) Comment on above: Performed By: #### C FITO, MADI, JOSE MARIA, BLAISE, W, CBC, GFR, ANEU ####[place] [address] [place], [place] [address] .GFRon 10-28-2023 GFR 51 ml/min/1.73sqm Normal [facility] ([place]) Comment on above: Result Comment: GFR Population mean for , Non- Americans Ages 20-29 = 116 mL/min/1.73 sq.m. Ages 30-39 = 107 mL/min/1.73 sq.m. Ages 40-49 = 99 mL/min/1.73 sq.m. Ages 50-59 = 93 mL/min/1.73 sq.m. Ages 60-69 = 85 mL/min/1.73 sq.m. Ages 70+ = 75 mL/min/1.73 sq.m.Chronic Kidney Disease: Less than 60 mL/min/1.73 square metersEnd Stage Renal Disease: Less than 15 mL/min/1.73 square meters Performed By: #### C FITO, MADI, JOSE MARIA, BLAISE, NABIL, CBC, GFR, ANEU ####[place] [address] [place], [place] [address] GFR Non- 42 ml/min/1.73sqm Normal [facility] ([place]) Comment on above: Result Comment: GFR Population mean for , Non- Americans Ages 20-29 = 116 mL/min/1.73 sq.m. Ages 30-39 = 107 mL/min/1.73 sq.m. Ages 40-49 = 99 mL/min/1.73 sq.m. Ages 50-59 = 93 mL/min/1.73 sq.m. Ages 60-69 = 85 mL/min/1.73 sq.m. Ages 70+ = 75 mL/min/1.73 sq.m.Chronic Kidney Disease: Less than 60 mL/min/1.73 square metersEnd Stage Renal Disease: Less than 15 mL/min/1.73 square meters Performed By: #### C MP, ADIFF, ALC, LAC, MDW, CBC, GFR, ANEU ####[place] [address] [place], [place] [address] .MDWon 10-28-2023 Monocyte Distribution Width 17.39 Normal 0.00-20.00 [facility] ([place]) Comment on above: Result Comment: For ED adult patients suspected of sepsis, MDW<=20.0 does not rule out sepsis or risk of sepsis Performed By: #### C MP, ADIFF, ALC, LAC, MDW, CBC, GFR, ANEU ####[place] [address] [place], [place] [address] .NEUABSon 10-28-2023 Neutrophil, Absolute 6.5 10 3/mcL High 2.9-6.2 [facility] ([place]) Comment on above: Performed By: #### C MP, ADIFF, ALC, LAC, MDW, CBC, GFR, ANEU ####[place] [address] [place], [place] [address] Daisy 10-28-2023 Ethanol Level 10 mg/dL High 0-3 [facility] ([place]) Comment on above: Performed By: #### C MP, ADIFF, ALC, LAC, MDW, CBC, GFR, ANEU ####[place] [address] [place], [place] [address] CBCon 10-28-2023 Erythrocyte distribution width (RBC) [Ratio] 16.3 % High 11.5-14.5 [facility] ([place]) Comment on above: Performed By: #### C MP, ADIFF, ALC, LAC, MDW, CBC, GFR, ANEU ####[place] [address] [place], [place] [address] Hematocrit (Bld) [Volume fraction] 44.8 % Normal 42.0-52.0 [facility] ([place]) Comment on above: Performed By: #### C MP, ADIFF, ALC, LAC, MDW, CBC, GFR, ANEU ####[place] [address] [place], [place] [address] Hgb 15.5 G/dL Normal 14.0-18.0 [facility] ([place]) Comment on above: Performed By: #### C MP, ADIFF, ALC, LAC, MDW, CBC, GFR, ANEU ####[place] [address] [place], [place] [address] MCH (RBC) [Entitic mass] 31.2 pg Normal 27.0-31.2 [facility] ([place]) Comment on above: Performed By: #### C MP, ADIFF, ALC, LAC, MDW, CBC, GFR, ANEU ####[place] [address] [place], [place] [address] MCHC 34.6 G/dL Normal 31.8-35.4 [facility] ([place]) Comment on above: Performed By: #### C MP, ADIFF, ALC, LAC, MDW, CBC, GFR, ANEU ####[place] [address] [place], [place] [address] MCV (RBC) [Entitic vol] 90.1 fL Normal 80.0-94.0 [facility] ([place]) Comment on above: Performed By: #### C MP, ADIFF, ALC, LAC, MDW, CBC, GFR, ANEU ####[place] [address] [place], [place] [address] Platelet 265 10 3/mcL Normal 130-400 [facility] ([place]) Comment on above: Performed By: #### C MP, ADIFF, ALC, LAC, MDW, CBC, GFR, ANEU ####[place] [address] [place], [place] [address] Platelet mean volume (Bld) [Entitic vol] 7.8 fL Normal 7.4-10.4 [facility] ([place]) Comment on above: Performed By: #### C MP, ADIFF, ALC, LAC, MDW, CBC, GFR, ANEU ####[place] [address] [place], [place] [address] RBC 4.98 10 6/mcL Normal 4.04-6.13 [facility] ([place]) Comment on above: Performed By: #### C MP, ADIFF, ALC, LAC, MDW, CBC, GFR, ANEU ####[place] [address] [place], [place] [address] WBC 10.0 10 3/mcL Normal 4.6-10.8 [facility] ([place]) Comment on above: Performed By: #### C MP, ADIFF, ALC, LAC, MDW, CBC, GFR, ANEU ####[place] [address] [place], [place] [address] CMPon 10-28-2023 Albumin Level 3.9 G/dL Normal 3.5-5.0 [facility] ([place]) Comment on above: Performed By: #### C MP, ADIFF, ALC, LAC, MDW, CBC, GFR, ANEU ####[place] [address] [place], [place] [address] Albumin/Globulin [Mass ratio] 1.1 {ratio} Normal 1.1-2.5 [facility] ([place]) Comment on above: Performed By: #### C MP, ADIFF, ALC, LAC, MDW, CBC, GFR, ANEU ####[place] [address] [place], [place] [address] ALP [Catalytic activity/Vol] 63 U/L Normal 40-135 [facility] ([place]) Comment on above: Performed By: #### C MP, ADIFF, ALC, LAC, MDW, CBC, GFR, ANEU ####[place] [address] [place], [place] [address] ALT [Catalytic activity/Vol] 19 U/L Normal 16-63 [facility] ([place]) Comment on above: Performed By: #### C MP, ADIFF, ALC, LAC, MDW, CBC, GFR, ANEU ####[place] [address] [place], [place] [address] AST [Catalytic activity/Vol] 15 U/L Normal 10-40 [facility] ([place]) Comment on above: Performed By: #### C MP, ADIFF, ALC, LAC, MDW, CBC, GFR, ANEU ####[place] [address] [place], [place] [address] Bili Total 1.2 mg/dL High 0.2-1.0 [facility] ([place]) Comment on above: Result Comment: Use of this assay is not recommended for patients undergoing treatment with eltrombopag due to the potential for falsely elevated results. Performed By: #### C MP, ADIFF, ALC, LAC, MDW, CBC, GFR, ANEU ####[place] [address] [place], [place] [address] BUN/Creatinine Ratio 15 ratio Normal 7-27 [facility] ([place]) Comment on above: Performed By: #### C MP, ADIFF, ALC, LAC, MDW, CBC, GFR, ANEU ####[place] [address] [place], [place] [address] Calcium [Mass/Vol] 10.1 mg/dL Normal 8.4-10.2 [facility] ([place]) Comment on above: Performed By: #### C MP, ADIFF, ALC, LAC, MDW, CBC, GFR, ANEU ####[place] [address] [place], [place] [address] Chloride [Moles/Vol] 99 mmol/L Normal 98-107 [facility] ([place]) Comment on above: Performed By: #### C MP, ADIFF, ALC, LAC, MDW, CBC, GFR, ANEU ####[place] [address] [place], [place] [address] CO2 [Moles/Vol] 32 mmol/L High 22-29 [facility] ([place]) Comment on above: Performed By: #### C MP, ADIFF, ALC, LAC, MDW, CBC, GFR, ANEU ####[place] [address] [place], [place] [address] Creatinine [Mass/Vol] 1.69 mg/dL High 0.70-1.30 [facility] ([place]) Comment on above: Performed By: #### C MP, ADIFF, ALC, LAC, MDW, CBC, GFR, ANEU ####[place] [address] [place], [place] [address] Electrolyte Balance 6.0 mEq/L Normal 4.0-15.0 [facility] ([place]) Comment on above: Performed By: #### C MP, ADIFF, ALC, LAC, MDW, CBC, GFR, ANEU ####[place] [address] [place], [place] [address] Globulin 3.6 G/dL Normal [facility] ([place]) Comment on above: Performed By: #### C MP, ADIFF, ALC, LAC, MDW, CBC, GFR, ANEU ####[place] [address] [place], [place] [address] Glucose [Mass/Vol] 221 mg/dL High 70-105 [facility] ([place]) Comment on above: Performed By: #### C MP, ADIFF, ALC, LAC, MDW, CBC, GFR, ANEU ####[place] [address] [place], [place] [address] Potassium [Moles/Vol] 4.4 mmol/L Normal 3.5-5.1 [facility] ([place]) Comment on above: Performed By: #### C MP, ADIFF, ALC, LAC, MDW, CBC, GFR, ANEU ####[place] [address] [place], [place] [address] Sodium [Moles/Vol] 137 mmol/L Normal 136-145 [facility] ([place]) Comment on above: Performed By: #### C MP, ADIFF, ALC, LAC, MDW, CBC, GFR, ANEU ####[place] [address] [place], [place] [address] Total Protein 7.5 G/dL Normal 6.4-8.2 [facility] ([place]) Comment on above: Performed By: #### C MP, ADIFF, ALC, LAC, MDW, CBC, GFR, ANEU ####[place] [address] [place], [place] [address] Urea nitrogen [Mass/Vol] 25 mg/dL High 7-18 [facility] ([place]) Comment on above: Performed By: #### C MP, ADIFF, ALC, LAC, MDW, CBC, GFR, ANEU ####[place] [address] [place], [place] [address] CT HEAD OR BRAIN W/O CONTRAS Ton 10-28-2023 CT HEAD OR BRAIN W/O CONTRAST Normal [facility] ([place]) LABORATORYOrdered By: SYSTEM SYSTEM on 10-28-2023 Troponin I.cardiac DL <= 0.01 ng/mL [Mass/Vol] 21 ng/L Normal 0 - 76 ng/L AO ADM SS Comment on above: Interpretive Data: H igh Sensitive Troponin I Reference Ranges: Female: 0-51 ng/L Male: 0-76 ng/L Testing performed on [employer] using a homogeneous sandwich chemiluminescent immunoassay based on [employer] technology. Albumin BCP dye [Mass/Vol] 3.9 G/dL Normal 3.5 - 5.0 G/dL AO ADM SS Albumin/Globulin [Mass ratio] 1.1 {ratio} Normal 1.1 - 2.5 ratio AO ADM SS ALP [Catalytic activity/Vol] 63 U/L Normal 40 - 135 U/L AO ADM SS ALT With P-5'-P [Catalytic activity/Vol] 19 U/L Normal 16 - 63 U/L AO ADM SS AST With P-5'-P [Catalytic activity/Vol] 15 U/L Normal 10 - 40 U/L AO ADM SS Basophil, Absolute 0.1 103/mcL Normal 0.0 - 0.2 10^3/mcL AO Workflow SS Basophils/100 WBC (Bld) 0.7 % Normal 0.0 - 2.5 % AO Workflow SS Bilirubin [Mass/Vol] 1.2 mg/dL High 0.2 - 1 .0 mg/dL AO ADM SS Comment on above: Interpretive Data: U se of this assay is not recommended for patients undergoing treatment with eltrombopag due to the potential for falsely elevated results. Calcium [Mass/Vol] 10.1 mg/dL Normal 8.4 - 10. 2 mg/dL AO ADM SS Chloride [Moles/Vol] 99 mmol/L Normal 98 - 10 7 mmol/L AO ADM SS CO2 [Moles/Vol] 32 mmol/L High 22 - 29 mmol/L AO ADM SS Creatinine [Mass/Vol] 1.69 mg/dL High 0.70 - 1.30 mg/dL AO ADM SS Electrolyte Balance 6.0 mEq/L Normal 4.0 - 15 .0 mEq/L AO ADM SS Eosinophil, Absolute 0.2 103/mcL Normal 0.0 - 0 .4 10^3/mcL AO Workflow SS Eosinophils/100 WBC (Bld) 2.3 % Normal 0.0 - 7.0 % AO Workflow SS Erythrocyte distribution width (RBC) [Ratio] 16.3 % High 11.5 - 14.5 % AO Workflow SS Ethanol [Mass/Vol] 10 mg/dL High 0 - 3 mg/dL AO AD M SS GFR/1.73 sq M.predicted among blacks MDRD (S/P/Bld) [Vol rate/Area] 51 ml/min/1.73sqm Invalid Interpretation Code AO Chemistry S Comment on above: Interpretive Data: GFR Population mean for , Non- Americans Ages 20-29 = 116 mL/min/1.73 sq.m. Ages 30-39 = 107 mL/min/1.73 sq.m. Ages 40-49 = 99 mL/min/1.73 sq.m. Ages 50-59 = 93 mL/min/1.73 sq.m. Ages 60-69 = 85 mL/min/1.73 sq.m. Ages 70+ = 75 mL/min/1.73 sq.m. Chronic Kidney Disease: Less than 60 mL/min/1.73 square meters End Stage Renal Disease: Less than 15 mL/min/1.73 square meters GFR/1.73 sq M.predicted among non-blacks MDRD (S/P/Bld) [Vol rate/Area] 42 ml/min/1.73sqm Invalid Interpretation Code AO Chemistry S Comment on above: Interpretive Data: GFR Population mean for , Non- Americans Ages 20-29 = 116 mL/min/1.73 sq.m. Ages 30-39 = 107 mL/min/1.73 sq.m. Ages 40-49 = 99 mL/min/1.73 sq.m. Ages 50-59 = 93 mL/min/1.73 sq.m. Ages 60-69 = 85 mL/min/1.73 sq.m. Ages 70+ = 75 mL/min/1.73 sq.m. Chronic Kidney Disease: Less than 60 mL/min/1.73 square meters End Stage Renal Disease: Less than 15 mL/min/1.73 square meters Globulin 3.6 G/dL Invalid Interpretation Code AO ADM SS Glucose [Mass/Vol] 221 mg/dL High 70 - 105 mg/dL AO ADM SS Hematocrit (Bld) [Volume fraction] 44.8 % Normal 42.0 - 52.0 % AO Workflow SS Hemoglobin (Bld) [Mass/Vol] 15.5 G/dL Normal 14.0 - 18.0 G/dL AO Workflow SS Lactate [Moles/Vol] 1.3 mmol/L Normal 0.4 - 2. 0 mmol/L AO ADM SS Lymphocyte, Absolute 2.1 103/mcL Normal 0.8 - 3 .9 10^3/mcL AO Workflow SS Lymphocytes/100 WBC (Bld) 21.5 % Normal 10.0 - 50.0 % AO Workflow SS MCH (RBC) [Entitic mass] 31.2 pg Normal 27.0 - 31.2 pg AO Workflow SS MCHC 34.6 G/dL Normal 31.8 - 35.4 G/dL AO Workflow SS MCV (RBC) [Entitic vol] 90.1 fL Normal 80.0 - 94.0 fL AO Workflow SS Monocyte distribution width Auto (Bld) [Entitic vol] 17.39 1 Normal 0.00 - 20.00 AO Workflow SS Comment on above: Result Comment: For ED adult patients suspected of sepsis, MDW<=20.0 does not rule out sepsis or risk of sepsis Monocyte, Absolute 1.1 103/mcL High 0.2 - 1.0 10^3/mcL AO Workflow SS Monocytes/100 WBC (Bld) 10.7 % Normal 1.7 - 13.0 % AO Workflow SS Neutrophil, Absolute 6.5 103/mcL High 2.9 - 6 .2 10^3/mcL AO Workflow SS Neutrophils/100 WBC (Bld) 64.8 % Normal 37.0 - 80.0 % AO Workflow SS Platelet mean volume (Bld) [Entitic vol] 7.8 fL Normal 7.4 - 10.4 fL AO Workflow SS Platelets (Bld) [#/Vol] 265 103/mcL Normal 130 - 400 10^3/mcL AO Workflow SS Potassium [Moles/Vol] 4.4 mmol/L Normal 3.5 - 5.1 mmol/L AO ADM SS Protein [Mass/Vol] 7.5 G/dL Normal 6.4 - 8.2 G/dL AO ADM SS RBC (Bld) [#/Vol] 4.98 106/mcL Normal 4.04 - 6.1 3 10^6/mcL AO Workflow SS Sodium [Moles/Vol] 137 mmol/L Normal 136 - 145 mmol/L AO ADM SS Urea nitrogen [Mass/Vol] 25 mg/dL High 7 - 18 mg/dL AO ADM SS Urea nitrogen/Creatinine [Mass ratio] 15 ratio Normal 7 - 27 ratio AO ADM SS WBC (Bld) [#/Vol] 10.0 103/mcL Normal 4.6 - 10.8 10^3/mcL AO Workflow SS LACon 10-28-2023 Lactic Acid Lvl 1.3 mmol/L Normal 0.4-2.0 [facility] ([place]) Comment on above: Performed By: #### C MP, ADIFF, ALC, LAC, MDW, CBC, GFR, ANEU ####[place] [address] [place], [place] [address] TROPHSon 10-28-2023 High Sensitivity Troponin I 21 ng/L Normal 0-76 [facility] ([place]) Comment on above: Result Comment: High Sensitive Troponin I Reference Ranges:Female: 0-51 ng/LMale: 0-76 ng/LTesting performed on [employer] using a homogeneous sandwich chemiluminescent immunoassay based on [employer] technology. Performed By: #### T [facility] ####[place] [address] [place], [place] [address] XR CHEST 1 VIEWon 10-28-2023 XR CHEST 1 VIEW Normal [facility] ([place]) XR FOOT MINIMUM 3 VIEWS LEFT on 10-27-2023 XR FOOT MINIMUM 3 VIEWS LEFT Normal [facility] Emergency Department Summary on 10-11-2023 Emergency Department Summary [facility] Medical Records Department [address] [place] [id number] Emergency Department Summary 10/11/23 MR#: [id number] Acct: [id number] Name: ERROLYUSEF Dutta Jr. Rep #: [id number] : 1965 58 From: Richard Diaz MD PCP: GUADALUPE RUGGIERO MD Status:PRE ER Location: ED HPI History of Present Illness Chief Complaint: Upper Extremity Injury Informant: patient Narrative Narrative: 58-year-old male presents to the ER because couple days ago states he was taking a nap on the couch and as he was getting up he put his right elbow on the back of the couch to help him get up and he felt sudden pain in his triceps in the middle of it. Ever since then it has been a sharp pain that has been off-and-on triggered with certain movements about the shoulder and elbow. No systemic symptoms or chest discomfort, diaphoresis, dyspnea, or numbness in his hand. 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 [facility] Medical History CHF (congestive heart failure) Meniscal injury ACL tear Biceps muscle tear Chronic pain Neuropathy Hypertension Diabetes Home Medications ???Medication ???Instructions ???Recorded ???Last Taken ???Type gabapentin 600 mg tablet 600 mg PO TID nerve pain 05/18/19 07/23/20 History cyclobenzaprine 10 mg tablet 10 mg PO TID PRN PRN Muscle Spasm 05/14/20 07/23/20 History simvastatin 10 mg tablet 10 mg PO DAILY cholesterol 05/14/20 07/23/20 History glimepiride 2 mg tablet 2 mg PO DAILY #30 TABLETS 07/24/20 Unknown Rx lisinopril 20 mg tablet 20 mg PO DAILY #30 tabs 07/24/20 Unknown Rx insulin glargine 100 unit/mL (3 20 unit subcut BID 01/26/21 01/26/21 History mL) subcutaneous pen (Lantus Solostar U-100 Insulin) furosemide 20 mg tablet 20 mg PO DAILY 06/29/23 Unknown History hydrocodone-acetaminophe n 5-325mg 1 tab PO Q6H PRN PRN Pain 3 days 06/29/23 Unknown Rx 5mg-325mg #10 TABLETS magnesium oxide 400 mg (241.3 mg 400 mg PO BID 06/29/23 Unknown History magnesium) tablet potassium chloride 20 mEq 20 meq PO DAILY 06/29/23 Unknown History tablet,extended release albuterol sulfate 90 mcg/actuation inhalation 08/24/23 Unknown History aerosol inhaler ammonium lactate 12 % topical cream 1 applic topical BID 08/24/23 Unknown History losartan 50 mg tablet 50 mg PO DAILY 08/24/23 Unknown History metformin 1,000 mg tablet 1,000 mg PO BID 08/24/23 Unknown History prednisone 5 mg tablet 5 mg PO DAILY 08/24/23 Unknown History ropinirole 1 mg tablet 1 mg PO QHS 08/24/23 Unknown History sacubitril 24 mg-valsartan 26 mg 1 tab PO BID 08/24/23 Unknown History tablet (Entresto) spironolactone 25 mg tablet 25 mg PO DAILY 08/24/23 Unknown History Allergy/AdvReac Type Severity Reaction Status Date / Time aspirin AdvReac NOSEBLEED Verified 10/11/23 10:54 Social History Smoking Status: Former smoker ROS ROS ED Constitutional Constitutional ED: Denies chills or fever(s) Musculoskeletal Musculoskeletal: Reports extremity pain; Denies neck pain Integumentary Denies Abrasions, rash or wounds Neurologic Neurologic: Denies paresthesias or weakness EXAM Physical Exam Const Vital Signs: 10/11/23 10:53 Temperature 97 F L Temperature Source Temporal Pulse Rate 93 Respiratory Rate 14 Blood Pressure 138/99 H Blood Pressure Mean 112 Pulse Ox 95 Oxygen Delivery Method Room Air Positive well nourished and well developed General Appearance ED: well developed and NAD Neck full ROM and supple Back/Spine normal ROM and normal to inspection Extremity normal to inspection and full ROM Extremity Narrative: No tenderness in the right upper arm. Patient is full range of motion of the elbow and shoulder without any apparent difficulty or limitation. With flexing fully at the right elbow and forward flexing at the shoulder in internal rotation and then abducting in order to stretch out the triceps, he feels some discomfort in the same area that he complains of pain in, mid right tricep muscle body. There is no palpable abnormality here. There is no bony tenderness throughout the right upper extremity or rash. Neuro oriented x3, no focal motor deficits and no sensory deficits noted Neuro Narrative: Normal function right upper extremity motor and sensory of median, ulnar, and radial nerves including AIN and PIN branches. Sensorium / Orientation: alert Psych mental status grossly normal and thought process normal Skin no (more content not included)... Normal [facility] CBC W/Diff, Automatedon 08-06 PATH REV Reviewed Normal [facility] Comment on above: Order Comment: CRITI ALECIA VALUE VERIFIED. CALLED TO erick diehl 08/24/23 Vanessa7 Lashae Encarnacion. RESULTS READ BACK BY same . Result Comment: Norm ocytic anemia. Clinical correlation suggested. Miquel Gomez D.O. 08/25/23 AMENDED REPORT 08/25/23 1330 PATH REV previously reported as: August spencer Performed By: #### L 501.4020, L500.2500, L100.0100 #### [facility] Laboratory [address] [place], [address] 12 Lead EKGon 08-24-2023 12 Lead EKG [facility] [address] [place] [address] 12 Lead EKG 08/24/23 1425 MR#: [id number] Acct: [id number] Name: YUSEF MUIR Jr. Rep #: [id number] : 1965 58 From: Jodi Ovalles MD Attending Dr: Status: DEP ER Ordering Dr: Richard Diaz MD Date: 08/24/23 Location: ED Sex: M C Admitted: Test Reason : REPEAT Blood Pressure : / mmHG Vent. Rate : 083 BPM Atrial Rate : 083 BPM P-R Int : 158 ms QRS Dur : 152 ms QT Int : 420 ms P-R-T Axes : 033 249 026 degrees QTc Int : 493 ms Normal sinus rhythm Right bundle branch block Cannot rule out Inferior infarct , age undetermined Anterolateral infarct , age undetermined Abnormal ECG Confirmed by Jodi Ovalles ([id number]), photo editor ARCHIE COON ([id number]) on 08/25/2023 12:59:14 PM Referred By: Confirmed By:Jodi Ovalles 08/25/23 1259 Date Jodi Ovalles MD CC: Dr. Richard Diaz MD; GUADALUPE RUGGIERO MD Signed Normal [facility] 12 Lead EKG [facility] [address] [place] [address] 12 Lead EKG 08/24/23 1242 MR#: [id number] Acct: [id number] Name: YUSEF MUIR Jr. Rep #: [id number] : 1965 58 From: Jodi Ovalles MD Attending Dr: Status: DEP ER Ordering Dr: Richard Diaz MD Date: 08/24/23 Location: ED Sex: M C Admitted: Test Reason : CP Blood Pressure : / mmHG Vent. Rate : 090 BPM Atrial Rate : 090 BPM P-R Int : 146 ms QRS Dur : 154 ms QT Int : 408 ms P-R-T Axes : 052 252 031 degrees QTc Int : 499 ms Normal sinus rhythm Right bundle branch block Cannot rule out Inferior infarct , age undetermined Anterolateral infarct , age undetermined Abnormal ECG Confirmed by Jodi Ovalles ([id number]), photo editor ARCHIE COON ([id number]) on 08/25/2023 12:58:42 PM Referred By: JOSE/NATIVIDAD Confirmed By:Jodi Ovalles 08/25/23 1258 Date Jodi Ovalles MD CC: Dr. Richard Diaz MD; GUADALUPE RUGGIERO MD Signed Normal [facility] Basic Metabolic Profile (BMP )on 08-24-2023 BUN/CRE 26.0 RATIO High - [facility] Comment on above: Order Comment: 'TROP ' Serial specimen #1, #2 or #3: 1 Performed By: #### L 501.4020, L500.2500, L100.0100 #### [facility] [address] [place], [address] CA,Total 9.7 mg/dL Normal 8.5-10.1 [facility] Comment on above: Order Comment: 'TROP ' Serial specimen #1, #2 or #3: 1 Performed By: #### L 501.4020, L500.2500, L100.0100 #### [facility] [address] [place], [address] Chloride [Moles/Vol] 91 mmol/L Low 98-107 [facility] Comment on above: Order Comment: 'TROP ' Serial specimen #1, #2 or #3: 1 Performed By: #### L 501.4020, L500.2500, L100.0100 #### [facility] [address] [place], [address] CO2 [Moles/Vol] 29.0 mmol/L Normal 21.0-32.0 [facility] Comment on above: Order Comment: 'TROP ' Serial specimen #1, #2 or #3: 1 Performed By: #### L 501.4020, L500.2500, L100.0100 #### [facility] [address] [place], [address] Creatinine [Mass/Vol] 1.31 mg/dL High 0.70-1.30 [facility] Comment on above: Order Comment: 'TROP ' Serial specimen #1, #2 or #3: 1 Result Comment: The validity of the calculated GFR GFRAA in patients over 70 years has not been determined. Clinical correlation is essential. Performed By: #### L 501.4020, L500.2500, L100.0100 #### [facility] [address] [place], [address] ECRCL 76.82 ml/min Normal [facility] Comment on above: Order Comment: 'TROP ' Serial specimen #1, #2 or #3: 1 Performed By: #### L 501.4020, L500.2500, L100.0100 #### [facility] [address] [place], [address] EST GFR - AA 73 mL/min Normal >60 [facility] Comment on above: Order Comment: 'TROP ' Serial specimen #1, #2 or #3: 1 Result Comment: Afri can [place] GFR Calc Performed By: #### L 501.4020, L500.2500, L100.0100 #### [facility] [address] [place], [address] GAP 7 Normal 5-15 [facility] Comment on above: Order Comment: 'TROP ' Serial specimen #1, #2 or #3: 1 Performed By: #### L 501.4020, L500.2500, L100.0100 #### [facility] [address] [place], [address] GFR/1.73 sq M.predicted among non-blacks MDRD (S/P/Bld) [Vol rate/Area] 60 mL/min/{1.73_m2} Normal >60 [facility] Comment on above: Order Comment: 'TROP ' Serial specimen #1, #2 or #3: 1 Result Comment: Non- GFR Calc Performed By: #### L 501.4020, L500.2500, L100.0100 #### [facility] [address] [place], [address] Glucose [Mass/Vol] 404 mg/dL High 74-106 [facility] Comment on above: Order Comment: 'TROP ' Serial specimen #1, #2 or #3: 1 Result Comment: Gluc ose result greater than or equal to 200 mg/dL suggests DIABETES MELLITUS per A.D.A. criteria. Performed By: #### L 501.4020, L500.2500, L100.0100 #### [facility] [address] [place], [address] Potassium [Moles/Vol] 4.5 mmol/L Normal 3.5-5.1 [facility] Comment on above: Order Comment: 'TROP ' Serial specimen #1, #2 or #3: 1 Performed By: #### L 501.4020, L500.2500, L100.0100 #### [facility] [address] [place], [address] Sodium [Moles/Vol] 127 mmol/L Low 136-145 [facility] Comment on above: Order Comment: 'TROP ' Serial specimen #1, #2 or #3: 1 Performed By: #### L 501.4020, L500.2500, L100.0100 #### [facility] [address] [place], [address] Urea nitrogen [Mass/Vol] 34 mg/dL High - [facility] Comment on above: Order Comment: 'TROP ' Serial specimen #1, #2 or #3: 1 Performed By: #### L 501.4020, L500.2500, L100.0100 #### [facility] [address] [place], [address] Chest PA and Lateralon 08-23 Chest PA and Lateral [facility] Imaging Services [address] [place] [address] Chest PA and Lateral MR#: [id number] Acct: [id number] Name: YUSEF MUIR Jr. Rep #: [id number] : 1965 M 58 From: Afua treviño MD PCP: GUADALUPE RUGGIERO MD Status: REG ER Study: Chest PA and Lateral Date of Exam: 08/24/23 Exam# [id number] Ordering Dr: Richard Diaz MD [id number] HISTORY: chest pain. TECHNIQUE: XR Chest 2 Views. COMPARISON: 02/22/2021. FINDINGS: CARDIOMEDIASTINAL BORDERS: Cardiac silhouette within normal limits in size. Mediastinal contour unremarkable. LUNGS: Radiographically clear. PLEURA: No pleural effusion or pneumothorax seen. OSSEOUS STRUCTURES: Mild degenerative change. RAD/Chest PA and Lateral IMPRESSION: No acute cardiopulmonary process identified. Electronically Signed: Afua Grover MD at 13:52 EDT , CC: Dr. 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 Rep #: [id number] : 1965 58 From: Richard Diaz MD PCP: GUADALUPE RUGGIERO MD Status:REG ER Location: ED HPI History of Present Illness Chief Complaint: Chest Pain Informant: patient Narrative Narrative: 58-year-old male states he gets recurrent chest pain all the time, it is left sided, feels like a pulsating discomfort, but this morning at 4 AM he woke up with a different discomfort that was burning and across his chest, nonpleuritic. He states it lasted 5-6 hours and was constant before it went away and now he feels better but he was concerned about the cause because he recently was in the hospital for lower extremity edema diagnosed with congestive heart failure. He states his legs are doing much better now, he went from 280 down to 220 pounds as a result of the diuresis apparently. He states he vomits every other day night, including last night. States is common for him he is not sure exactly why but he does know he has cirrhosis of the liver. He denies any hematemesis, coffee-ground emesis, melena, bright red blood per rectum. He denies any associated symptoms with this this morning such as dyspnea, nausea, sweating, arm discomfort, syncope or presyncope. [facility] Medical History CHF (congestive heart failure) Meniscal injury ACL tear Biceps muscle tear Chronic pain Neuropathy Hypertension Diabetes Home Medications ???Medication ???Instructions ???Recorded ???Last Taken ???Type gabapentin 600 mg tablet 600 mg PO TID nerve pain 05/18/19 07/23/20 History cyclobenzaprine 10 mg tablet 10 mg PO TID PRN PRN Muscle Spasm 05/14/20 07/23/20 History simvastatin 10 mg tablet 10 mg PO DAILY cholesterol 05/14/20 07/23/20 History glimepiride 2 mg tablet 2 mg PO DAILY #30 TABLETS 07/24/20 Unknown Rx lisinopril 20 mg tablet 20 mg PO DAILY #30 tabs 07/24/20 Unknown Rx insulin glargine 100 unit/mL (3 20 unit subcut BID 01/26/21 01/26/21 History mL) subcutaneous pen (Lantus Solostar U-100 Insulin) furosemide 20 mg tablet 20 mg PO DAILY 06/29/23 Unknown History hydrocodone-acetaminophe n 5-325mg 1 tab PO Q6H PRN PRN Pain 3 days 06/29/23 Unknown Rx 5mg-325mg #10 TABLETS magnesium oxide 400 mg (241.3 mg 400 mg PO BID 06/29/23 Unknown History magnesium) tablet potassium chloride 20 mEq 20 meq PO DAILY 06/29/23 Unknown History tablet,extended release albuterol sulfate 90 mcg/actuation inhalation 08/24/23 Unknown History aerosol inhaler ammonium lactate 12 % topical cream 1 applic topical BID 08/24/23 Unknown History losartan 50 mg tablet 50 mg PO DAILY 08/24/23 Unknown History metformin 1,000 mg tablet 1,000 mg PO BID 08/24/23 Unknown History prednisone 5 mg tablet 5 mg PO DAILY 08/24/23 Unknown History ropinirole 1 mg tablet 1 mg PO QHS 08/24/23 Unknown History sacubitril 24 mg-valsartan 26 mg 1 tab PO BID 08/24/23 Unknown History tablet (Entresto) spironolactone 25 mg tablet 25 mg PO DAILY 08/24/23 Unknown History Allergy/AdvReac Type Severity Reaction Status Date / Time aspirin AdvReac NOSEBLEED Verified 08/24/23 12:37 Social History Smoking Status: Former smoker ROS ROS ED Constitutional Constitutional ED: Denies chills or fever(s) Eyes Eyes: Denies change in vision or diplopia ENT ENT ED: Denies rhinorrhea or sore throat Cardiovascular Cardiovascular: Reports as per HPI and chest pain; Denies palpitations Respiratory/Chest Respiratory/Chest: Denies cough or dyspnea Gastrointestinal Gastrointestinal: Reports vomiting; Denies abdominal pain, diarrhea or melena Genitourinary Genitourinary ED: Denies dysuria or hematuria Musculoskeletal Musculoskeletal: Denies back pain or neck pain Integumentary Denies abscess or rash Neurologic Neurologic: Denies headache(s), paresthesias or weakness Psychiatric Psychiatric: Denies depression or suicidal thoughts EXAM Physical Exam Const Vital Signs: 08/24/23 12:35 08/24/23 12:46 08/24/23 12:48 Temperature 98 F Temperature Source Temporal Pulse Rate 93 90 Respiratory Rate 18 20 H Respiratory Effort Normal Blood Pressure 100/75 116/75 Blood Pressure Mean 83 88 Pulse Ox 93 95 Oxygen Delivery Method Room Air Room Air 08/24/23 13:20 08/24/23 13:34 08/24/23 14:00 Temperature Temperature Source Pulse Rate 87 86 Respiratory Rate 20 H 18 Respiratory Effort Blood Pressure 97/71 105/70 Blood Pressure Mean 79 81 Pulse Ox 97 97 Oxygen Delivery Method Room Air Room Air Positive well nourish (more content not included)... Normal [facility] L501.4020on 08-24-2023 TROPONIN-I HS 25 pg/mL Normal 3.0-78.0 [facility] Comment on above: Order Comment: 'TROP ' Serial specimen #1, #2 or #3: 1 Result Comment: Lyndsay foy Note: New Test Units and Gender Specific Reference Ranges. For more information see Policy Stat Procedure [facility] High Sensitivity Troponin (TNIH) and attachments. Performed By: #### L 501.4020, L500.2500, L100.0100 #### [facility] [address] [place], [address] .GFRon 08-23-2023 GFR 59 ml/min/1.73sqm Normal [facility] ([place]) Comment on above: Result Comment: GFR Population mean for , Non- Americans Ages 20-29 = 116 mL/min/1.73 sq.m. Ages 30-39 = 107 mL/min/1.73 sq.m. Ages 40-49 = 99 mL/min/1.73 sq.m. Ages 50-59 = 93 mL/min/1.73 sq.m. Ages 60-69 = 85 mL/min/1.73 sq.m. Ages 70+ = 75 mL/min/1.73 sq.m.Chronic Kidney Disease: Less than 60 mL/min/1.73 square metersEnd Stage Renal Disease: Less than 15 mL/min/1.73 square meters Performed By: #### C MP, GFR, MG ####[facility] [place], [place] [address] GFR Non- 49 ml/min/1.73sqm Normal [facility] ([place]) Comment on above: Result Comment: GFR Population mean for , Non- Americans Ages 20-29 = 116 mL/min/1.73 sq.m. Ages 30-39 = 107 mL/min/1.73 sq.m. Ages 40-49 = 99 mL/min/1.73 sq.m. Ages 50-59 = 93 mL/min/1.73 sq.m. Ages 60-69 = 85 mL/min/1.73 sq.m. Ages 70+ = 75 mL/min/1.73 sq.m.Chronic Kidney Disease: Less than 60 mL/min/1.73 square metersEnd Stage Renal Disease: Less than 15 mL/min/1.73 square meters Performed By: #### C MP, GFR, MG ####[facility] [place], [place] [address] CMPon 08-23-2023 Glucose [Mass/Vol] 561 mg/dL Critically abnormal 70-105 [facility] ([place]) Comment on above: Performed By: #### C MP, GFR, MG ####[facility] [place], [place] [address] Albumin Level 3.6 G/dL Normal 3.5-5.0 [facility] ([place]) Comment on above: Performed By: #### C MP, GFR, MG ####[facility] [place], [place] [address] Albumin/Globulin [Mass ratio] 0.8 {ratio} Low 1.1-2.5 [facility] ([place]) Comment on above: Performed By: #### C MP, GFR, MG ####[facility] [place], [place] [address] ALP [Catalytic activity/Vol] 106 U/L Normal 40-135 [facility] ([place]) Comment on above: Performed By: #### C MP, GFR, MG ####[facility] [place], [place] [address] ALT [Catalytic activity/Vol] 24 U/L Normal 16-63 [facility] ([place]) Comment on above: Performed By: #### C MP, GFR, MG ####[facility] [place], [place] [address] AST [Catalytic activity/Vol] 16 U/L Normal 10-40 [facility] ([place]) Comment on above: Performed By: #### C MP, GFR, MG ####[facility] [place], [place] [address] Bili Total 1.2 mg/dL High 0.2-1.0 [facility] ([place]) Comment on above: Result Comment: Use of this assay is not recommended for patients undergoing treatment with eltrombopag due to the potential for falsely elevated results. Performed By: #### C MP, GFR, MG ####[facility] [place], [place] [address] BUN/Creatinine Ratio 20 ratio Normal 7-27 [facility] ([place]) Comment on above: Performed By: #### C MP, GFR, MG ####[facility] [place], [place] [address] Calcium [Mass/Vol] 9.4 mg/dL Normal 8.4-10.2 [facility] ([place]) Comment on above: Performed By: #### C MP, GFR, MG ####[facility] [place], [place] [address] Chloride [Moles/Vol] 92 mmol/L Low 98-107 [facility] ([place]) Comment on above: Performed By: #### C MP, GFR, MG ####[facility] [place], [place] [address] CO2 [Moles/Vol] 29 mmol/L Normal 22-29 [facility] ([place]) Comment on above: Performed By: #### C MP, GFR, MG ####[facility] [place], [place] [address] Creatinine [Mass/Vol] 1.48 mg/dL High 0.70-1.30 [facility] ([place]) Comment on above: Performed By: #### C MP, GFR, MG ####[facility] [place], [place] [address] Electrolyte Balance 7.0 mEq/L Normal 4.0-15.0 [facility] ([place]) Comment on above: Performed By: #### C MP, GFR, MG ####[facility] [place], [place] [address] Globulin 4.6 G/dL Normal [facility] ([place]) Comment on above: Performed By: #### C MP, GFR, MG ####[facility] [place], [place] [address] Potassium [Moles/Vol] 5.1 mmol/L Normal 3.5-5.1 [facility] ([place]) Comment on above: Performed By: #### C MP, GFR, MG ####[facility] [place], [place] [address] Sodium [Moles/Vol] 128 mmol/L Low 136-145 [facility] ([place]) Comment on above: Performed By: #### C MP, GFR, MG ####[facility] [place], [place] [address] Total Protein 8.2 G/dL Normal 6.4-8.2 [facility] ([place]) Comment on above: Performed By: #### C MP, GFR, MG ####[facility] [place], [place] [address] Urea nitrogen [Mass/Vol] 29 mg/dL High 7-18 [facility] ([place]) Comment on above: Performed By: #### C MP, GFR, MG ####[facility] [place], [place] [address] LABORATORYOrdered By: Nilsa Jorge on 08-23-2023 Glucose [Mass/Vol] 415 mg/dL Invalid Interpretation Code 70 - 110 mg/dL [facility] Work Phone: Glucose [Mass/Vol] 561 mg/dL Invalid Interpretation Code 70 - 110 mg/dL [facility] Work Phone: LABORATORYOrdered By: SYSTEM SYSTEM on 08-23-2023 Albumin BCP dye [Mass/Vol] 3.6 G/dL Normal 3.5 - 5.0 G/dL AO ADM SS Albumin/Globulin [Mass ratio] 0.8 {ratio} Low 1.1 - 2.5 ratio AO ADM SS ALP [Catalytic activity/Vol] 106 U/L Normal 40 - 135 U/L AO ADM SS ALT With P-5'-P [Catalytic activity/Vol] 24 U/L Normal 16 - 63 U/L AO ADM SS AST With P-5'-P [Catalytic activity/Vol] 16 U/L Normal 10 - 40 U/L AO ADM SS Bilirubin [Mass/Vol] 1.2 mg/dL High 0.2 - 1 .0 mg/dL AO ADM SS Comment on above: Interpretive Data: U se of this assay is not recommended for patients undergoing treatment with eltrombopag due to the potential for falsely elevated results. Calcium [Mass/Vol] 9.4 mg/dL Normal 8.4 - 10. 2 mg/dL AO ADM SS Chloride [Moles/Vol] 92 mmol/L Low 98 - 10 7 mmol/L AO ADM SS CO2 [Moles/Vol] 29 mmol/L Normal 22 - 29 mmol/L AO ADM SS Creatinine [Mass/Vol] 1.48 mg/dL High 0.70 - 1.30 mg/dL AO ADM SS Electrolyte Balance 7.0 mEq/L Normal 4.0 - 15 .0 mEq/L AO ADM SS GFR/1.73 sq M.predicted among blacks MDRD (S/P/Bld) [Vol rate/Area] 59 ml/min/1.73sqm Invalid Interpretation Code AO Chemistry S Comment on above: Interpretive Data: GFR Population mean for , Non- Americans Ages 20-29 = 116 mL/min/1.73 sq.m. Ages 30-39 = 107 mL/min/1.73 sq.m. Ages 40-49 = 99 mL/min/1.73 sq.m. Ages 50-59 = 93 mL/min/1.73 sq.m. Ages 60-69 = 85 mL/min/1.73 sq.m. Ages 70+ = 75 mL/min/1.73 sq.m. Chronic Kidney Disease: Less than 60 mL/min/1.73 square meters End Stage Renal Disease: Less than 15 mL/min/1.73 square meters GFR/1.73 sq M.predicted among non-blacks MDRD (S/P/Bld) [Vol rate/Area] 49 ml/min/1.73sqm Invalid Interpretation Code AO Chemistry S Comment on above: Interpretive Data: GFR Population mean for , Non- Americans Ages 20-29 = 116 mL/min/1.73 sq.m. Ages 30-39 = 107 mL/min/1.73 sq.m. Ages 40-49 = 99 mL/min/1.73 sq.m. Ages 50-59 = 93 mL/min/1.73 sq.m. Ages 60-69 = 85 mL/min/1.73 sq.m. Ages 70+ = 75 mL/min/1.73 sq.m. Chronic Kidney Disease: Less than 60 mL/min/1.73 square meters End Stage Renal Disease: Less than 15 mL/min/1.73 square meters Globulin 4.6 G/dL Invalid Interpretation Code AO ADM SS Glucose [Mass/Vol] 561 mg/dL Invalid Interpretation Code 70 - 105 mg/dL AO ADM SS Magnesium [Mass/Vol] 1.7 mg/dL Low 1.8 - 2 .4 mg/dL AO ADM SS Potassium [Moles/Vol] 5.1 mmol/L Normal 3.5 - 5.1 mmol/L AO ADM SS Protein [Mass/Vol] 8.2 G/dL Normal 6.4 - 8.2 G/dL AO ADM SS Sodium [Moles/Vol] 128 mmol/L Low 136 - 145 mmol/L AO ADM SS Urea nitrogen [Mass/Vol] 29 mg/dL High 7 - 18 mg/dL AO ADM SS Urea nitrogen/Creatinine [Mass ratio] 20 ratio Normal 7 - 27 ratio AO ADM SS LABORATORYOrdered By: Aracelis Lima on 08-23-2023 Amphetamines Screen Ql (U) Negative *NA* (08/23/23 6:46 PM) Invalid Interpretation Code Negative AO ADM SS Barbiturates Screen Ql (U) Negative *NA* (08/23/23 6:46 PM) Invalid Interpretation Code Negative AO ADM SS Benzodiazepines Ql (U) Negative *NA* (08/23/23 6:46 PM) Invalid Interpretation Code Negative AO ADM SS Benzoylecgonine Screen Ql (U) Negative *NA* (08/23/23 6:46 PM) Invalid Interpretation Code Negative AO ADM SS Cannabinoids Screen Ql (U) Negative *NA* (08/23/23 6:46 PM) Invalid Interpretation Code Negative AO ADM SS Methadone Screen Ql (U) Negative *NA* (08/23/23 6:46 PM) Invalid Interpretation Code Negative AO ADM SS Opiates Screen Ql (U) Negative *NA* (08/23/23 6:46 PM) Invalid Interpretation Code Negative AO ADM SS Phencyclidine Ql (U) Negative *NA* (08/23/23 6:46 PM) Invalid Interpretation Code Negative AO ADM SS Urine Drugs screened: See Below 2 (08/23/23 6:46 PM) Normal AO Chemistry S Comment on above: Interpretive Data: T his drug screen is a presumptive screening only. No confirmation will be performed unless requested. Drugs screened include: Threshold Amphetamines/Methamphetamines 1,000 ng/mL Barbiturates 200 ng/mL Benzodiazepine metabolites 200 ng/mL Cannabinoids (THC metabolites) 50 ng/mL Cocaine 300 ng/mL Opiates 300 ng/mL Methadone 300 ng/mL Phencyclidine (PCP) 25 ng/mL Testing has been performed FOR MEDICAL PURPOSES ONLY. MGon 08-23-2023 Magnesium [Mass/Vol] 1.7 mg/dL Low 1.8-2.4 [facility] ([place]) Comment on above: Performed By: #### C MP, GFR, MG ####[facility] [place], [place] [address] UDRUGon 08-23-2023 Amphetamine (u) Negative Normal Negative [facility] ([place]) Comment on above: Performed By: #### U DRUG ####[facility] [place], [place] [address] Barbiturate (u) Negative Normal Negative [facility] ([place]) Comment on above: Performed By: #### U DRUG ####[facility] [place], [place] [address] Benzodiazepine (u) Negative Normal Negative [facility] ([place]) Comment on above: Performed By: #### U DRUG ####[facility] [place], [place] [address] Cannabinoid (u) Negative Normal Negative [facility] ([place]) Comment on above: Performed By: #### U DRUG ####[facility] [place], [place] [address] Cocaine Ql (U) Negative Normal Negative [facility] ([place]) Comment on above: Performed By: #### U DRUG ####[facility] [place], [place] [address] Methadone Ql (U) Negative Normal Negative [facility] ([place]) Comment on above: Performed By: #### U DRUG ####[facility] [place], [place] [address] Opiate (u) Negative Normal Negative [facility] ([place]) Comment on above: Performed By: #### U DRUG ####[facility] [place], [place] [address] PCP (u) Negative Normal Negative [facility] ([place]) Comment on above: Performed By: #### U DRUG ####[facility] [place], [place] [address] Urine Drugs screened: See Below Normal [facility] ([place]) Comment on above: Result Comment: This drug screen is a presumptive screening only.No confirmation will be performed unless requested.Drugs screened include: ThresholdAmphetamines/Methamphetamines 1,000 ng/mLBarbiturates 200 ng/mLBenzodiazepine metabolites 200 ng/mLCannabinoids (THC metabolites) 50 ng/mLCocaine 300 ng/mLOpiates 300 ng/mLMethadone 300 ng/mLPhencyclidine (PCP) 25 ng/mLTesting has been performed FOR MEDICAL PURPOSES ONLY. Performed By: #### U DRUG ####[place] [address] [place], [place] [address] .Auto Diffon 08-01-2023 Basophil, Absolute 0.1 10 3/mcL Normal 0.0-0.2 [facility] ([place]) Comment on above: Performed By: #### A DIFF, GFR, MG, CBC, ANEU, BMP ####[place] [address] [place], [place] [address] Basophils/100 WBC (Bld) 1.0 % Normal 0.0-2.5 [facility] ([place]) Comment on above: Performed By: #### A DIFF, GFR, MG, CBC, ANEU, BMP ####[place] [address] [place], [place] [address] Eosinophil, Absolute 0.2 10 3/mcL Normal 0.0-0.4 [facility] ([place]) Comment on above: Performed By: #### A DIFF, GFR, MG, CBC, ANEU, BMP ####[place] [address] [place], [place] [address] Eosinophils/100 WBC (Bld) 2.6 % Normal 0.0-7.0 [facility] ([place]) Comment on above: Performed By: #### A DIFF, GFR, MG, CBC, ANEU, BMP ####[place] [address] [place], [place] [address] Lymphocyte, Absolute 0.7 10 3/mcL Low 0.8-3.9 [facility] ([place]) Comment on above: Performed By: #### A DIFF, GFR, MG, CBC, ANEU, BMP ####[place] [address] [place], [place] [address] Lymphocytes/100 WBC (Bld) 10.4 % Normal 10.0-50.0 [facility] ([place]) Comment on above: Performed By: #### A DIFF, GFR, MG, CBC, ANEU, BMP ####[place] [address] [place], [place] [address] Monocyte, Absolute 0.6 10 3/mcL Normal 0.2-1.0 [facility] ([place]) Comment on above: Performed By: #### A DIFF, GFR, MG, CBC, ANEU, BMP ####[place] [address] [place], [place] [address] Monocytes/100 WBC (Bld) 7.9 % Normal 1.7-13.0 [facility] ([place]) Comment on above: Performed By: #### A DIFF, GFR, MG, CBC, ANEU, BMP ####[place] [address] [place], [place] [address] Neutrophils/100 WBC (Bld) 78.1 % Normal 37.0-80.0 [facility] ([place]) Comment on above: Performed By: #### A DIFF, GFR, MG, CBC, ANEU, BMP ####[place] [address] [place], [place] [address] .GFRon 08-01-2023 GFR 73 ml/min/1.73sqm Normal [facility] ([place]) Comment on above: Result Comment: GFR Population mean for , Non- Americans Ages 20-29 = 116 mL/min/1.73 sq.m. Ages 30-39 = 107 mL/min/1.73 sq.m. Ages 40-49 = 99 mL/min/1.73 sq.m. Ages 50-59 = 93 mL/min/1.73 sq.m. Ages 60-69 = 85 mL/min/1.73 sq.m. Ages 70+ = 75 mL/min/1.73 sq.m.Chronic Kidney Disease: Less than 60 mL/min/1.73 square metersEnd Stage Renal Disease: Less than 15 mL/min/1.73 square meters Performed By: #### A DIFF, GFR, MG, CBC, ANEU, BMP ####[place] [address] [place], [place] [address] GFR Non- 60 ml/min/1.73sqm Normal [facility] ([place]) Comment on above: Result Comment: GFR Population mean for , Non- Americans Ages 20-29 = 116 mL/min/1.73 sq.m. Ages 30-39 = 107 mL/min/1.73 sq.m. Ages 40-49 = 99 mL/min/1.73 sq.m. Ages 50-59 = 93 mL/min/1.73 sq.m. Ages 60-69 = 85 mL/min/1.73 sq.m. Ages 70+ = 75 mL/min/1.73 sq.m.Chronic Kidney Disease: Less than 60 mL/min/1.73 square metersEnd Stage Renal Disease: Less than 15 mL/min/1.73 square meters Performed By: #### A DIFF, GFR, MG, CBC, ANEU, BMP ####[place] [address] [place], [place] [address] .NEUABSon 08-01-2023 Neutrophil, Absolute 5.6 10 3/mcL Normal 2.9-6.2 [facility] ([place]) Comment on above: Performed By: #### A DIFF, GFR, MG, CBC, ANEU, BMP ####[place] [address] [place], [place] [address] BMPon 08-01-2023 BUN/Creatinine Ratio 17 ratio Normal 7-27 [facility] ([place]) Comment on above: Performed By: #### A DIFF, GFR, MG, CBC, ANEU, BMP ####[place] [address] [place], [place] [address] Calcium [Mass/Vol] 8.5 mg/dL Normal 8.4-10.2 [facility] ([place]) Comment on above: Performed By: #### A DIFF, GFR, MG, CBC, ANEU, BMP ####[place] [address] [place], [place] [address] Chloride [Moles/Vol] 102 mmol/L Normal 98-107 [facility] ([place]) Comment on above: Performed By: #### A DIFF, GFR, MG, CBC, ANEU, BMP ####[address] [place], [place] [address] CO2 [Moles/Vol] 35 mmol/L High 22-29 [facility] ([place]) Comment on above: Performed By: #### A DIFF, GFR, MG, CBC, ANEU, BMP ####[place] [address] [place], [place] [address] Creatinine [Mass/Vol] 1.24 mg/dL Normal 0.70-1.30 [facility] ([place]) Comment on above: Performed By: #### A DIFF, GFR, MG, CBC, ANEU, BMP ####[place] [address] [place], [place] [address] Electrolyte Balance 7.0 mEq/L Normal 4.0-15.0 [facility] ([place]) Comment on above: Performed By: #### A DIFF, GFR, MG, CBC, ANEU, BMP ####[place] [address] [place], [place] [address] Glucose [Mass/Vol] 96 mg/dL Normal 70-105 [facility] ([place]) Comment on above: Performed By: #### A DIFF, GFR, MG, CBC, ANEU, BMP ####[place] [address] [place], [place] [address] Potassium [Moles/Vol] 4.5 mmol/L Normal 3.5-5.1 [facility] ([place]) Comment on above: Performed By: #### A DIFF, GFR, MG, CBC, ANEU, BMP ####[place] [address] [place], [place] [address] Sodium [Moles/Vol] 144 mmol/L Normal 136-145 [facility] ([place]) Comment on above: Performed By: #### A DIFF, GFR, MG, CBC, ANEU, BMP ####[place] [address] [place], [place] [address] Urea nitrogen [Mass/Vol] 21 mg/dL High 7-18 [facility] ([place]) Comment on above: Performed By: #### A DIFF, GFR, MG, CBC, ANEU, BMP ####[place] [address] [place] [id number] CBCon 08-01-2023 Erythrocyte distribution width (RBC) [Ratio] 16.6 % High 11.5-14.5 [facility] ([place]) Comment on above: Performed By: #### A DIFF, GFR, MG, CBC, ANEU, BMP ####[place] [address] [place] [phone] Hematocrit (Bld) [Volume fraction] 46.4 % Normal 42.0-52.0 [facility] ([place]) Comment on above: Performed By: #### A DIFF, GFR, MG, CBC, ANEU, BMP ####[place] [address] [place], [place] [address] Hgb 15.5 G/dL Normal 14.0-18.0 [facility] ([place]) Comment on above: Performed By: #### A DIFF, GFR, MG, CBC, ANEU, BMP ####[place] [address] [place] [phone] MCH (RBC) [Entitic mass] 30.5 pg Normal 27.0-31.2 [facility] ([place]) Comment on above: Performed By: #### A DIFF, GFR, MG, CBC, ANEU, BMP ####[place] [address] [place], [place] [address] MCHC 33.5 G/dL Normal 31.8-35.4 [facility] ([place]) Comment on above: Performed By: #### A DIFF, GFR, MG, CBC, ANEU, BMP ####[place] [address] [place], [place] [address] MCV (RBC) [Entitic vol] 91.1 fL Normal 80.0-94.0 [facility] ([place]) Comment on above: Performed By: #### A DIFF, GFR, MG, CBC, ANEU, BMP ####[place] [address] [place], [place] [address] Platelet 256 10 3/mcL Normal 130-400 [facility] ([place]) Comment on above: Performed By: #### A DIFF, GFR, MG, CBC, ANEU, BMP ####[place] [address] [place], [place] [address] Platelet mean volume (Bld) [Entitic vol] 7.1 fL Low 7.4-10.4 [facility] ([place]) Comment on above: Performed By: #### A DIFF, GFR, MG, CBC, ANEU, BMP ####[place] [address] [place], [place] [address] RBC 5.09 10 6/mcL Normal 4.04-6.13 [facility] ([place]) Comment on above: Performed By: #### A DIFF, GFR, MG, CBC, ANEU, BMP ####[place] [address] [place], [place] [address] WBC 7.2 10 3/mcL Normal 4.6-10.8 [facility] ([place]) Comment on above: Performed By: #### A DIFF, GFR, MG, CBC, ANEU, BMP ####[place] [address] [place], [place] [address] HFPon 08-01-2023 Bili Indirect 0.9 mg/dL Normal [facility] ([place]) Comment on above: Performed By: #### H FP ####[place] [address] [place], [place] [address] Albumin Level 2.7 G/dL Low 3.5-5.0 [facility] ([place]) Comment on above: Performed By: #### H FP ####[place] [address] [place], [place] [address] Albumin/Globulin [Mass ratio] 0.7 {ratio} Low 1.1-2.5 [facility] ([place]) Comment on above: Performed By: #### H FP ####[place] [address] [place], [place] [address] ALP [Catalytic activity/Vol] 141 U/L High 40-135 [facility] ([place]) Comment on above: Performed By: #### H FP ####[place] [address] [place], [place] [address] ALT [Catalytic activity/Vol] 28 U/L Normal 16-63 [facility] ([place]) Comment on above: Performed By: #### H FP ####[place] [address] [place], [place] [address] AST [Catalytic activity/Vol] 23 U/L Normal 10-40 [facility] ([place]) Comment on above: Performed By: #### H FP ####[place] [address] [place], [place] [address] Bili Direct 0.7 mg/dL High 0.0-0.2 [facility] ([place]) Comment on above: Result Comment: Use of this assay is not recommended for patients undergoing treatment with eltrombopag due to the potential for falsely elevated results. Performed By: #### H FP ####[place] [address] [place], [place] [address] Bili Total 1.6 mg/dL High 0.2-1.0 [facility] ([place]) Comment on above: Result Comment: Use of this assay is not recommended for patients undergoing treatment with eltrombopag due to the potential for falsely elevated results. Performed By: #### H FP ####[place] [address] [place], [place] [address] Globulin 3.7 G/dL Normal [facility] ([place]) Comment on above: Performed By: #### H FP ####[place] [address] [place], [place] [address] Total Protein 6.4 G/dL Normal 6.4-8.2 [facility] ([place]) Comment on above: Performed By: #### H ####[facility] [address] [place], [place] [address] LABORATORYOrdered By: Danny Loza on 08-01-2023 Blood Glucose Testing Reason Routine (08/01/23 11:38 AM) [facility] Work Phone: Glucose [Mass/Vol] 150 mg/dL High 70 - 110 mg/dL [facility] Work Phone: Blood Glucose Testing Reason Routine (08/01/23 8:34 AM) [facility] Work Phone: Glucose [Mass/Vol] 124 mg/dL High 70 - 110 mg/dL [facility] Work Phone: LABORATORYOrdered By: SYSTEM SYSTEM on 08-01-2023 Albumin BCP dye [Mass/Vol] 2.7 G/dL Low 3.5 - 5.0 G/dL AO ADM SS Albumin/Globulin [Mass ratio] 0.7 {ratio} Low 1.1 - 2.5 ratio AO ADM SS ALP [Catalytic activity/Vol] 141 U/L High 40 - 135 U/L AO ADM SS ALT With P-5'-P [Catalytic activity/Vol] 28 U/L Normal 16 - 63 U/L AO ADM SS AST With P-5'-P [Catalytic activity/Vol] 23 U/L Normal 10 - 40 U/L AO ADM SS Bilirubin [Mass/Vol] 1.6 mg/dL High 0.2 - 1 .0 mg/dL AO ADM SS Comment on above: Interpretive Data: U se of this assay is not recommended for patients undergoing treatment with eltrombopag due to the potential for falsely elevated results. Bilirubin.direct [Mass/Vol] 0.9 mg/dL Invalid Interpretation Code AO Chemistry S Bilirubin.direct [Mass/Vol] 0.7 mg/dL High 0.0 - 0.2 mg/dL AO ADM SS Comment on above: Interpretive Data: U se of this assay is not recommended for patients undergoing treatment with eltrombopag due to the potential for falsely elevated results. Globulin 3.7 G/dL Invalid Interpretation Code AO ADM SS Protein [Mass/Vol] 6.4 G/dL Normal 6.4 - 8.2 G/dL AO ADM SS Basophil, Absolute 0.1 103/mcL Normal 0.0 - 0.2 10^3/mcL AO Workflow SS Basophils/100 WBC (Bld) 1.0 % Normal 0.0 - 2.5 % AO Workflow SS Calcium [Mass/Vol] 8.5 mg/dL Normal 8.4 - 10. 2 mg/dL AO ADM SS Chloride [Moles/Vol] 102 mmol/L Normal 98 - 10 7 mmol/L AO ADM SS CO2 [Moles/Vol] 35 mmol/L High 22 - 29 mmol/L AO ADM SS Creatinine [Mass/Vol] 1.24 mg/dL Normal 0.70 - 1.30 mg/dL AO ADM SS Electrolyte Balance 7.0 mEq/L Normal 4.0 - 15 .0 mEq/L AO ADM SS Eosinophil, Absolute 0.2 103/mcL Normal 0.0 - 0 .4 10^3/mcL AO Workflow SS Eosinophils/100 WBC (Bld) 2.6 % Normal 0.0 - 7.0 % AO Workflow SS Erythrocyte distribution width (RBC) [Ratio] 16.6 % High 11.5 - 14.5 % AO Workflow SS GFR/1.73 sq M.predicted among blacks MDRD (S/P/Bld) [Vol rate/Area] 73 ml/min/1.73sqm Invalid Interpretation Code AO Chemistry S Comment on above: Interpretive Data: GFR Population mean for , Non- Americans Ages 20-29 = 116 mL/min/1.73 sq.m. Ages 30-39 = 107 mL/min/1.73 sq.m. Ages 40-49 = 99 mL/min/1.73 sq.m. Ages 50-59 = 93 mL/min/1.73 sq.m. Ages 60-69 = 85 mL/min/1.73 sq.m. Ages 70+ = 75 mL/min/1.73 sq.m. Chronic Kidney Disease: Less than 60 mL/min/1.73 square meters End Stage Renal Disease: Less than 15 mL/min/1.73 square meters GFR/1.73 sq M.predicted among non-blacks MDRD (S/P/Bld) [Vol rate/Area] 60 ml/min/1.73sqm Invalid Interpretation Code AO Chemistry S Comment on above: Interpretive Data: GFR Population mean for , Non- Americans Ages 20-29 = 116 mL/min/1.73 sq.m. Ages 30-39 = 107 mL/min/1.73 sq.m. Ages 40-49 = 99 mL/min/1.73 sq.m. Ages 50-59 = 93 mL/min/1.73 sq.m. Ages 60-69 = 85 mL/min/1.73 sq.m. Ages 70+ = 75 mL/min/1.73 sq.m. Chronic Kidney Disease: Less than 60 mL/min/1.73 square meters End Stage Renal Disease: Less than 15 mL/min/1.73 square meters Glucose [Mass/Vol] 96 mg/dL Normal 70 - 105 mg/dL AO ADM SS Hematocrit (Bld) [Volume fraction] 46.4 % Normal 42.0 - 52.0 % AO Workflow SS Hemoglobin (Bld) [Mass/Vol] 15.5 G/dL Normal 14.0 - 18.0 G/dL AO Workflow SS Lymphocyte, Absolute 0.7 103/mcL Low 0.8 - 3 .9 10^3/mcL AO Workflow SS Lymphocytes/100 WBC (Bld) 10.4 % Normal 10.0 - 50.0 % AO Workflow SS Magnesium [Mass/Vol] 1.9 mg/dL Normal 1.8 - 2 .4 mg/dL AO ADM SS MCH (RBC) [Entitic mass] 30.5 pg Normal 27.0 - 31.2 pg AO Workflow SS MCHC 33.5 G/dL Normal 31.8 - 35.4 G/dL AO Workflow SS MCV (RBC) [Entitic vol] 91.1 fL Normal 80.0 - 94.0 fL AO Workflow SS Monocyte, Absolute 0.6 103/mcL Normal 0.2 - 1.0 10^3/mcL AO Workflow SS Monocytes/100 WBC (Bld) 7.9 % Normal 1.7 - 13.0 % AO Workflow SS Neutrophil, Absolute 5.6 103/mcL Normal 2.9 - 6 .2 10^3/mcL AO Workflow SS Neutrophils/100 WBC (Bld) 78.1 % Normal 37.0 - 80.0 % AO Workflow SS Platelet mean volume (Bld) [Entitic vol] 7.1 fL Low 7.4 - 10.4 fL AO Workflow SS Platelets (Bld) [#/Vol] 256 103/mcL Normal 130 - 400 10^3/mcL AO Workflow SS Potassium [Moles/Vol] 4.5 mmol/L Normal 3.5 - 5.1 mmol/L AO ADM SS RBC (Bld) [#/Vol] 5.09 106/mcL Normal 4.04 - 6.1 3 10^6/mcL AO Workflow SS Sodium [Moles/Vol] 144 mmol/L Normal 136 - 145 mmol/L AO ADM SS Urea nitrogen [Mass/Vol] 21 mg/dL High 7 - 18 mg/dL AO ADM SS Urea nitrogen/Creatinine [Mass ratio] 17 ratio Normal 7 - 27 ratio AO ADM SS WBC (Bld) [#/Vol] 7.2 103/mcL Normal 4.6 - 10.8 10^3/mcL AO Workflow SS MGon 08-01-2023 Magnesium [Mass/Vol] 1.9 mg/dL Normal 1.8-2.4 [facility] ([place]) Comment on above: Performed By: #### A DIFF, GFR, MG, CBC, ANEU, BMP ####[place] [address] [place], [place] [address] US ELASTOGRAPHY LIVER ONLYon 08-01-2023 US ELASTOGRAPHY LIVER ONLY Normal [facility] ([place]) .Auto Diffon 07-31-2023 Basophil, Absolute 0.1 10 3/mcL Normal 0.0-0.2 [facility] ([place]) Comment on above: Performed By: #### B MP, GFR, MG, ANEU, HFP, ADIFF, CBC ####[place] [address] [place], [place] [address] Basophils/100 WBC (Bld) 1.1 % Normal 0.0-2.5 [facility] ([place]) Comment on above: Performed By: #### B MP, GFR, MG, ANEU, HFP, ADIFF, CBC ####[place] [address] [place], [place] [address] Eosinophil, Absolute 0.1 10 3/mcL Normal 0.0-0.4 [facility] ([place]) Comment on above: Performed By: #### B MP, GFR, MG, ANEU, HFP, ADIFF, CBC ####[place] [address] [place], [place] [address] Eosinophils/100 WBC (Bld) 2.4 % Normal 0.0-7.0 [facility] ([place]) Comment on above: Performed By: #### B MP, GFR, MG, ANEU, HFP, ADIFF, CBC ####[place] [address] [place], [place] [address] Lymphocyte, Absolute 0.7 10 3/mcL Low 0.8-3.9 [facility] ([place]) Comment on above: Performed By: #### B MP, GFR, MG, ANEU, HFP, ADIFF, CBC ####[place] [address] [place], [place] [address] Lymphocytes/100 WBC (Bld) 12.2 % Normal 10.0-50.0 [facility] ([place]) Comment on above: Performed By: #### B MP, GFR, MG, ANEU, HFP, ADIFF, CBC ####[place] [address] [place], [place] [address] Monocyte, Absolute 0.5 10 3/mcL Normal 0.2-1.0 [facility] ([place]) Comment on above: Performed By: #### B MP, GFR, MG, ANEU, HFP, ADIFF, CBC ####[place] [address] [place], [place] [address] Monocytes/100 WBC (Bld) 8.3 % Normal 1.7-13.0 [facility] ([place]) Comment on above: Performed By: #### B MP, GFR, MG, ANEU, HFP, ADIFF, CBC ####[place] [address] [place], [place] [address] Neutrophils/100 WBC (Bld) 76.0 % Normal 37.0-80.0 [facility] ([place]) Comment on above: Performed By: #### B MP, GFR, MG, ANEU, HFP, ADIFF, CBC ####[place] [address] [place], [place] [address] .GFRon 07-31-2023 GFR 71 ml/min/1.73sqm Normal [facility] ([place]) Comment on above: Result Comment: GFR Population mean for , Non- Americans Ages 20-29 = 116 mL/min/1.73 sq.m. Ages 30-39 = 107 mL/min/1.73 sq.m. Ages 40-49 = 99 mL/min/1.73 sq.m. Ages 50-59 = 93 mL/min/1.73 sq.m. Ages 60-69 = 85 mL/min/1.73 sq.m. Ages 70+ = 75 mL/min/1.73 sq.m.Chronic Kidney Disease: Less than 60 mL/min/1.73 square metersEnd Stage Renal Disease: Less than 15 mL/min/1.73 square meters Performed By: #### B MP, GFR, MG, ANEU, HFP, ADIFF, CBC ####[address] [place], [place] [address] GFR Non- 58 ml/min/1.73sqm Normal [facility] ([place]) Comment on above: Result Comment: GFR Population mean for , Non- Americans Ages 20-29 = 116 mL/min/1.73 sq.m. Ages 30-39 = 107 mL/min/1.73 sq.m. Ages 40-49 = 99 mL/min/1.73 sq.m. Ages 50-59 = 93 mL/min/1.73 sq.m. Ages 60-69 = 85 mL/min/1.73 sq.m. Ages 70+ = 75 mL/min/1.73 sq.m.Chronic Kidney Disease: Less than 60 mL/min/1.73 square metersEnd Stage Renal Disease: Less than 15 mL/min/1.73 square meters Performed By: #### B MP, GFR, MG, ANEU, HFP, ADIFF, CBC ####[place] [address] [place], [place] [address] .NEUABSon 07-31-2023 Neutrophil, Absolute 4.4 10 3/mcL Normal 2.9-6.2 [facility] ([place]) Comment on above: Performed By: #### B MP, GFR, MG, ANEU, HFP, ADIFF, CBC ####[place] [address] [place], [place] [address] BMPon 07-31-2023 BUN/Creatinine Ratio 19 ratio Normal 7-27 [facility] ([place]) Comment on above: Performed By: #### B MP, GFR, MG, ANEU, HFP, ADIFF, CBC ####[place] [address] [place], [place] [address] Calcium [Mass/Vol] 8.3 mg/dL Low 8.4-10.2 [facility] ([place]) Comment on above: Performed By: #### B MP, GFR, MG, ANEU, HFP, ADIFF, CBC ####[place] [address] [place], [place] [address] Chloride [Moles/Vol] 102 mmol/L Normal 98-107 [facility] ([place]) Comment on above: Performed By: #### B MP, GFR, MG, ANEU, HFP, ADIFF, CBC ####[place] [address] [place], [place] [address] CO2 [Moles/Vol] 33 mmol/L High 22-29 [facility] ([place]) Comment on above: Performed By: #### B MP, GFR, MG, ANEU, HFP, ADIFF, CBC ####[place] [address] [place], [place] [address] Creatinine [Mass/Vol] 1.27 mg/dL Normal 0.70-1.30 [facility] ([place]) Comment on above: Performed By: #### B MP, GFR, MG, ANEU, HFP, ADIFF, CBC ####[place] [address] [place], [place] [address] Electrolyte Balance 7.0 mEq/L Normal 4.0-15.0 [facility] ([place]) Comment on above: Performed By: #### B MP, GFR, MG, ANEU, HFP, ADIFF, CBC ####[place] [address] [place], [place] [address] Glucose [Mass/Vol] 102 mg/dL Normal 70-105 [facility] ([place]) Comment on above: Performed By: #### B MP, GFR, MG, ANEU, HFP, ADIFF, CBC ####[place] [address] [place], [place] [address] Potassium [Moles/Vol] 4.2 mmol/L Normal 3.5-5.1 [facility] ([place]) Comment on above: Performed By: #### B MP, GFR, MG, ANEU, HFP, ADIFF, CBC ####[place] [address] [place], [place] [address] Sodium [Moles/Vol] 142 mmol/L Normal 136-145 [facility] ([place]) Comment on above: Performed By: #### B MP, GFR, MG, ANEU, HFP, ADIFF, CBC ####[place] [address] [place], [place] [address] Urea nitrogen [Mass/Vol] 24 mg/dL High 7-18 [facility] ([place]) Comment on above: Performed By: #### B MP, GFR, MG, ANEU, HFP, ADIFF, CBC ####[place] [address] [place], [place] [address] CBCon 07-31-2023 Erythrocyte distribution width (RBC) [Ratio] 16.7 % High 11.5-14.5 [facility] ([place]) Comment on above: Performed By: #### B MP, GFR, MG, ANEU, HFP, ADIFF, CBC ####[place] [address] [place], [place] [address] Hematocrit (Bld) [Volume fraction] 41.8 % Low 42.0-52.0 [facility] ([place]) Comment on above: Performed By: #### B MP, GFR, MG, ANEU, HFP, ADIFF, CBC ####[place] [address] [place], [place] [address] Hgb 13.9 G/dL Low 14.0-18.0 [facility] ([place]) Comment on above: Performed By: #### B MP, GFR, MG, ANEU, HFP, ADIFF, CBC ####[place] [address] [place], [place] [address] MCH (RBC) [Entitic mass] 30.1 pg Normal 27.0-31.2 [facility] ([place]) Comment on above: Performed By: #### B MP, GFR, MG, ANEU, HFP, ADIFF, CBC ####[place] [address] [place], [place] [address] MCHC 33.2 G/dL Normal 31.8-35.4 [facility] ([place]) Comment on above: Performed By: #### B MP, GFR, MG, ANEU, HFP, ADIFF, CBC ####[place] [address] [place], [place] [address] MCV (RBC) [Entitic vol] 90.9 fL Normal 80.0-94.0 [facility] ([place]) Comment on above: Performed By: #### B MP, GFR, MG, ANEU, HFP, ADIFF, CBC ####[place] [address] [place], [place] [address] Platelet 225 10 3/mcL Normal 130-400 [facility] ([place]) Comment on above: Performed By: #### B MP, GFR, MG, ANEU, HFP, ADIFF, CBC ####[place] [address] [place], [place] [address] Platelet mean volume (Bld) [Entitic vol] 7.4 fL Normal 7.4-10.4 [facility] ([place]) Comment on above: Performed By: #### B MP, GFR, MG, ANEU, HFP, ADIFF, CBC ####[place] [address] [place], [place] [address] RBC 4.60 10 6/mcL Normal 4.04-6.13 [facility] ([place]) Comment on above: Performed By: #### B MP, GFR, MG, ANEU, HFP, ADIFF, CBC ####[place] [address] [place], [place] [address] WBC 5.8 10 3/mcL Normal 4.6-10.8 [facility] ([place]) Comment on above: Performed By: #### B MP, GFR, MG, ANEU, HFP, ADIFF, CBC ####[place] [address] [place], [place] [address] HFPon 07-31-2023 Bili Indirect 0.6 mg/dL Normal [facility] ([place]) Comment on above: Performed By: #### B MP, GFR, MG, ANEU, HFP, ADIFF, CBC ####[place] [address] [place], [place] [address] Albumin Level 2.7 G/dL Low 3.5-5.0 [facility] ([place]) Comment on above: Performed By: #### B MP, GFR, MG, ANEU, HFP, ADIFF, CBC ####[place] [address] [place], [place] [address] Albumin/Globulin [Mass ratio] 0.8 {ratio} Low 1.1-2.5 [facility] ([place]) Comment on above: Performed By: #### B MP, GFR, MG, ANEU, HFP, ADIFF, CBC ####[place] [address] [place], [place] [address] ALP [Catalytic activity/Vol] 137 U/L High 40-135 [facility] ([place]) Comment on above: Performed By: #### B MP, GFR, MG, ANEU, HFP, ADIFF, CBC ####[place] [address] [place], [place] [address] ALT [Catalytic activity/Vol] 33 U/L Normal 16-63 [facility] ([place]) Comment on above: Performed By: #### B MP, GFR, MG, ANEU, HFP, ADIFF, CBC ####[place] [address] [place], [place] [address] AST [Catalytic activity/Vol] 26 U/L Normal 10-40 [facility] ([place]) Comment on above: Performed By: #### B MP, GFR, MG, ANEU, HFP, ADIFF, CBC ####[place] [address] [place], [place] [address] Bili Direct 0.8 mg/dL High 0.0-0.2 [facility] ([place]) Comment on above: Result Comment: Use of this assay is not recommended for patients undergoing treatment with eltrombopag due to the potential for falsely elevated results. Performed By: #### B MP, GFR, MG, ANEU, HFP, ADIFF, CBC ####[place] [address] [place], [place] [address] Bili Total 1.4 mg/dL High 0.2-1.0 [facility] ([place]) Comment on above: Result Comment: Use of this assay is not recommended for patients undergoing treatment with eltrombopag due to the potential for falsely elevated results. Performed By: #### B MP, GFR, MG, ANEU, HFP, ADIFF, CBC ####[place] [address] [place], [place] [address] Globulin 3.5 G/dL Normal [facility] ([place]) Comment on above: Performed By: #### B MP, GFR, MG, ANEU, HFP, ADIFF, CBC ####[place] [address] [place], [place] [address] Total Protein 6.2 G/dL Low 6.4-8.2 [facility] ([place]) Comment on above: Performed By: #### B MP, GFR, MG, ANEU, HFP, ADIFF, CBC ####[place] [address] [place], [place] [address] LABORATORYOrdered By: Edda Kaur on 07-31-2023 Blood Glucose Testing Reason Routine (07/31/23 9:36 PM) [facility] Work Phone: Glucose [Mass/Vol] 147 mg/dL High 70 - 110 mg/dL [facility] Work Phone: LABORATORYOrdered By: SYSTEM SYSTEM on 07-31-2023 Albumin BCP dye [Mass/Vol] 2.7 G/dL Low 3.5 - 5.0 G/dL AO ADM SS Albumin/Globulin [Mass ratio] 0.8 {ratio} Low 1.1 - 2.5 ratio AO ADM SS ALP [Catalytic activity/Vol] 137 U/L High 40 - 135 U/L AO ADM SS ALT With P-5'-P [Catalytic activity/Vol] 33 U/L Normal 16 - 63 U/L AO ADM SS AST With P-5'-P [Catalytic activity/Vol] 26 U/L Normal 10 - 40 U/L AO ADM SS Basophil, Absolute 0.1 103/mcL Normal 0.0 - 0.2 10^3/mcL AO Workflow SS Basophils/100 WBC (Bld) 1.1 % Normal 0.0 - 2.5 % AO Workflow SS Bilirubin [Mass/Vol] 1.4 mg/dL High 0.2 - 1 .0 mg/dL AO ADM SS Comment on above: Interpretive Data: U se of this assay is not recommended for patients undergoing treatment with eltrombopag due to the potential for falsely elevated results. Bilirubin.direct [Mass/Vol] 0.8 mg/dL High 0.0 - 0.2 mg/dL AO ADM SS Comment on above: Interpretive Data: U se of this assay is not recommended for patients undergoing treatment with eltrombopag due to the potential for falsely elevated results. Bilirubin.direct [Mass/Vol] 0.6 mg/dL Invalid Interpretation Code AO Chemistry S Calcium [Mass/Vol] 8.3 mg/dL Low 8.4 - 10. 2 mg/dL AO ADM SS Chloride [Moles/Vol] 102 mmol/L Normal 98 - 10 7 mmol/L AO ADM SS CO2 [Moles/Vol] 33 mmol/L High 22 - 29 mmol/L AO ADM SS Creatinine [Mass/Vol] 1.27 mg/dL Normal 0.70 - 1.30 mg/dL AO ADM SS Electrolyte Balance 7.0 mEq/L Normal 4.0 - 15 .0 mEq/L AO ADM SS Eosinophil, Absolute 0.1 103/mcL Normal 0.0 - 0 .4 10^3/mcL AO Workflow SS Eosinophils/100 WBC (Bld) 2.4 % Normal 0.0 - 7.0 % AO Workflow SS Erythrocyte distribution width (RBC) [Ratio] 16.7 % High 11.5 - 14.5 % AO Workflow SS GFR/1.73 sq M.predicted among blacks MDRD (S/P/Bld) [Vol rate/Area] 71 ml/min/1.73sqm Invalid Interpretation Code AO Chemistry S Comment on above: Interpretive Data: GFR Population mean for , Non- Americans Ages 20-29 = 116 mL/min/1.73 sq.m. Ages 30-39 = 107 mL/min/1.73 sq.m. Ages 40-49 = 99 mL/min/1.73 sq.m. Ages 50-59 = 93 mL/min/1.73 sq.m. Ages 60-69 = 85 mL/min/1.73 sq.m. Ages 70+ = 75 mL/min/1.73 sq.m. Chronic Kidney Disease: Less than 60 mL/min/1.73 square meters End Stage Renal Disease: Less than 15 mL/min/1.73 square meters GFR/1.73 sq M.predicted among non-blacks MDRD (S/P/Bld) [Vol rate/Area] 58 ml/min/1.73sqm Invalid Interpretation Code AO Chemistry S Comment on above: Interpretive Data: GFR Population mean for , Non- Americans Ages 20-29 = 116 mL/min/1.73 sq.m. Ages 30-39 = 107 mL/min/1.73 sq.m. Ages 40-49 = 99 mL/min/1.73 sq.m. Ages 50-59 = 93 mL/min/1.73 sq.m. Ages 60-69 = 85 mL/min/1.73 sq.m. Ages 70+ = 75 mL/min/1.73 sq.m. Chronic Kidney Disease: Less than 60 mL/min/1.73 square meters End Stage Renal Disease: Less than 15 mL/min/1.73 square meters Globulin 3.5 G/dL Invalid Interpretation Code AO ADM SS Glucose [Mass/Vol] 102 mg/dL Normal 70 - 105 mg/dL AO ADM SS Hematocrit (Bld) [Volume fraction] 41.8 % Low 42.0 - 52.0 % AO Workflow SS Hemoglobin (Bld) [Mass/Vol] 13.9 G/dL Low 14.0 - 18.0 G/dL AO Workflow SS Lymphocyte, Absolute 0.7 103/mcL Low 0.8 - 3 .9 10^3/mcL AO Workflow SS Lymphocytes/100 WBC (Bld) 12.2 % Normal 10.0 - 50.0 % AO Workflow SS Magnesium [Mass/Vol] 2.2 mg/dL Normal 1.8 - 2 .4 mg/dL AO ADM SS MCH (RBC) [Entitic mass] 30.1 pg Normal 27.0 - 31.2 pg AO Workflow SS MCHC 33.2 G/dL Normal 31.8 - 35.4 G/dL AO Workflow SS MCV (RBC) [Entitic vol] 90.9 fL Normal 80.0 - 94.0 fL AO Workflow SS Monocyte, Absolute 0.5 103/mcL Normal 0.2 - 1.0 10^3/mcL AO Workflow SS Monocytes/100 WBC (Bld) 8.3 % Normal 1.7 - 13.0 % AO Workflow SS Neutrophil, Absolute 4.4 103/mcL Normal 2.9 - 6 .2 10^3/mcL AO Workflow SS Neutrophils/100 WBC (Bld) 76.0 % Normal 37.0 - 80.0 % AO Workflow SS Platelet mean volume (Bld) [Entitic vol] 7.4 fL Normal 7.4 - 10.4 fL AO Workflow SS Platelets (Bld) [#/Vol] 225 103/mcL Normal 130 - 400 10^3/mcL AO Workflow SS Potassium [Moles/Vol] 4.2 mmol/L Normal 3.5 - 5.1 mmol/L AO ADM SS Protein [Mass/Vol] 6.2 G/dL Low 6.4 - 8.2 G/dL AO ADM SS RBC (Bld) [#/Vol] 4.60 106/mcL Normal 4.04 - 6.1 3 10^6/mcL AO Workflow SS Sodium [Moles/Vol] 142 mmol/L Normal 136 - 145 mmol/L AO ADM SS Urea nitrogen [Mass/Vol] 24 mg/dL High 7 - 18 mg/dL AO ADM SS Urea nitrogen/Creatinine [Mass ratio] 19 ratio Normal 7 - 27 ratio AO ADM SS WBC (Bld) [#/Vol] 5.8 103/mcL Normal 4.6 - 10.8 10^3/mcL AO Workflow SS MGon 07-31-2023 Magnesium [Mass/Vol] 2.2 mg/dL Normal 1.8-2.4 [facility] ([place]) Comment on above: Performed By: #### B MP, GFR, MG, ANEU, HFP, ADIFF, CBC ####[place] [address] [place] [address] US ABDOMEN LIMITEDon 024 US ABDOMEN LIMITED Normal [facility] ([place]) .Auto Diffon 07-30-2023 Basophil, Absolute 0.0 10 3/mcL Normal 0.0-0.2 [facility] ([place]) Comment on above: Performed By: #### A YANELY, NABIL, PBNP, BMP, ADIFF, CBC, GFR, TROPHS ####[place] [address] [place], [place] [address] Basophils/100 WBC (Bld) 0.4 % Normal 0.0-2.5 [facility] ([place]) Comment on above: Performed By: #### A NABIL [place], MACNP, BMP, ADIFF, CBC, GFR, TROPHS ####[place] [address] [place], [place] [address] Eosinophil, Absolute 0.0 10 3/mcL Normal 0.0-0.4 [facility] ([place]) Comment on above: Performed By: #### A NABIL [place], MACNP, BMP, ADIFF, CBC, GFR, TROPHS ####[place] [address] [place], [place] [address] Eosinophils/100 WBC (Bld) 0.5 % Normal 0.0-7.0 [facility] ([place]) Comment on above: Performed By: #### A NABIL [place], MACNP, BMP, ADIFF, CBC, GFR, TROPHS ####[place] [address] [place], [place] [address] Lymphocyte, Absolute 0.4 10 3/mcL Low 0.8-3.9 [facility] ([place]) Comment on above: Performed By: #### A NABIL [place], MIREILLE, BMP, ADIFF, CBC, GFR, TROPHS ####[place] [address] [place], [place] [address] Lymphocytes/100 WBC (Bld) 5.9 % Low 10.0-50.0 [facility] ([place]) Comment on above: Performed By: #### A NABIL NY, MACNP, BMP, ADIFF, CBC, GFR, TROPHS ####[place] [address] [place], [place] [address] Monocyte, Absolute 0.5 10 3/mcL Normal 0.2-1.0 [facility] ([place]) Comment on above: Performed By: #### A NABIL NY, PBNP, BMP, ADIFF, CBC, GFR, TROPHS ####[place] [address] [place], [place] [address] Monocytes/100 WBC (Bld) 7.3 % Normal 1.7-13.0 [facility] ([place]) Comment on above: Performed By: #### A NABIL NY, MIREILLE, BMP, ADIFF, CBC, GFR, TROPHS ####[place] [address] [place], [place] [address] Neutrophils/100 WBC (Bld) 85.9 % High 37.0-80.0 [facility] ([place]) Comment on above: Performed By: #### A NABIL [place], MIREILLE, BMP, ADIFF, CBC, GFR, TROPHS ####[place] [address] [place], [place] [address] .GFRon 07-30-2023 GFR 65 ml/min/1.73sqm Normal [facility] ([place]) Comment on above: Result Comment: GFR Population mean for , Non- Americans Ages 20-29 = 116 mL/min/1.73 sq.m. Ages 30-39 = 107 mL/min/1.73 sq.m. Ages 40-49 = 99 mL/min/1.73 sq.m. Ages 50-59 = 93 mL/min/1.73 sq.m. Ages 60-69 = 85 mL/min/1.73 sq.m. Ages 70+ = 75 mL/min/1.73 sq.m.Chronic Kidney Disease: Less than 60 mL/min/1.73 square metersEnd Stage Renal Disease: Less than 15 mL/min/1.73 square meters Performed By: #### A NABIL NY, MIREILLE, BMP, ADIFF, CBC, GFR, TROPHS ####[place] [address] [place], [place] [address] GFR Non- 54 ml/min/1.73sqm Normal [facility] ([place]) Comment on above: Result Comment: GFR Population mean for , Non- Americans Ages 20-29 = 116 mL/min/1.73 sq.m. Ages 30-39 = 107 mL/min/1.73 sq.m. Ages 40-49 = 99 mL/min/1.73 sq.m. Ages 50-59 = 93 mL/min/1.73 sq.m. Ages 60-69 = 85 mL/min/1.73 sq.m. Ages 70+ = 75 mL/min/1.73 sq.m.Chronic Kidney Disease: Less than 60 mL/min/1.73 square metersEnd Stage Renal Disease: Less than 15 mL/min/1.73 square meters Performed By: #### A NABIL [place], PBLAURA, BMP, ADIFF, CBC, GFR, TROPHS ####[place] [address] [place], [place] [address] .MDWon 07-30-2023 Monocyte Distribution Width 18.26 Normal 0.00-20.00 [facility] ([place]) Comment on above: Result Comment: For ED adult patients suspected of sepsis, MDW<=20.0 does not rule out sepsis or risk of sepsis Performed By: #### A NABIL [place], PBLAURA, BMP, ADIFF, CBC, GFR, TROPHS ####[place] [address] [place], [place] [address] .NEUABSon 07-30-2023 Neutrophil, Absolute 6.4 10 3/mcL High 2.9-6.2 [facility] ([place]) Comment on above: Performed By: #### A NABIL [place], MIRE[place]LE, BMP, ADIFF, CBC, GFR, TROPHS ####[place] [address] [place], [place] [address] BMPon 07-30-2023 BUN/Creatinine Ratio 18 ratio Normal 7-27 [facility] ([place]) Comment on above: Performed By: #### A NABIL [place], MIRE[place]LE, BMP, ADIFF, CBC, GFR, TROPHS ####[place] [address] [place], [place] [address] Calcium [Mass/Vol] 8.2 mg/dL Low 8.4-10.2 [facility] ([place]) Comment on above: Performed By: #### A NABIL NY, PBNP, BMP, ADIFF, CBC, GFR, TROPHS ####[place] [address] [place], [place] [address] Chloride [Moles/Vol] 103 mmol/L Normal 98-107 [facility] ([place]) Comment on above: Performed By: #### A NABIL [place], MIRE[place]LE, BMP, ADIFF, CBC, GFR, TROPHS ####[place] [address] [place], [place] [address] CO2 [Moles/Vol] 30 mmol/L High 22-29 [facility] ([place]) Comment on above: Performed By: #### A NABIL NY, MIREILLE, BMP, ADIFF, CBC, GFR, TROPHS ####[place] [address] [place], [place] [address] Creatinine [Mass/Vol] 1.37 mg/dL High 0.70-1.30 [facility] ([place]) Comment on above: Performed By: #### A NABIL NY, MIREILLE, BMP, ADIFF, CBC, GFR, TROPHS ####[place] [address] [place], [place] [address] Electrolyte Balance 8.0 mEq/L Normal 4.0-15.0 [facility] ([place]) Comment on above: Performed By: #### A NABIL NY, MIREILLE, BMP, ADIFF, CBC, GFR, TROPHS ####[place] [address] [place], [place] [address] Glucose [Mass/Vol] 189 mg/dL High 70-105 [facility] ([place]) Comment on above: Performed By: #### A NABIL NY, MIREILLE, BMP, ADIFF, CBC, GFR, TROPHS ####[place] [address] [place], [place] [address] Potassium [Moles/Vol] 4.3 mmol/L Normal 3.5-5.1 [facility] ([place]) Comment on above: Performed By: #### A NABIL NY, MIREILLE, BMP, ADIFF, CBC, GFR, TROPHS ####[place] [address] [place], [place] [address] Sodium [Moles/Vol] 141 mmol/L Normal 136-145 [facility] ([place]) Comment on above: Performed By: #### A NABIL NY, MIREILLE, BMP, ADIFF, CBC, GFR, TROPHS ####[place] [address] [place], [place] [address] Urea nitrogen [Mass/Vol] 24 mg/dL High 7-18 [facility] ([place]) Comment on above: Performed By: #### A NABIL NY, MIREILLE, BMP, ADIFF, CBC, GFR, TROPHS ####[place] [address] [place], [place] [address] CBCon 07-30-2023 Erythrocyte distribution width (RBC) [Ratio] 16.2 % High 11.5-14.5 [facility] ([place]) Comment on above: Performed By: #### A NABIL NY, MIREILLE, BMP, ADIFF, CBC, GFR, TROPHS ####[place] [address] [place], [place] [address] Hematocrit (Bld) [Volume fraction] 41.6 % Low 42.0-52.0 [facility] ([place]) Comment on above: Performed By: #### A NABIL NY, MIREILLE, BMP, ADIFF, CBC, GFR, TROPHS ####[place] [address] [place], [place] [address] Hgb 13.7 G/dL Low 14.0-18.0 [facility] ([place]) Comment on above: Performed By: #### A NABIL NY, MIREILLE, BMP, ADIFF, CBC, GFR, TROPHS ####[place] [address] [place], [place] [address] MCH (RBC) [Entitic mass] 30.1 pg Normal 27.0-31.2 [facility] ([place]) Comment on above: Performed By: #### A NABIL NY, MIREILLE, BMP, ADIFF, CBC, GFR, TROPHS ####[place] [address] [place], [place] [address] MCHC 33.0 G/dL Normal 31.8-35.4 [facility] ([place]) Comment on above: Performed By: #### A NABIL NY, MIREILLE, BMP, ADIFF, CBC, GFR, TROPHS ####[place] [address] [place], [place] [address] MCV (RBC) [Entitic vol] 91.3 fL Normal 80.0-94.0 [facility] ([place]) Comment on above: Performed By: #### A NABIL NY, MIREILLE, BMP, ADIFF, CBC, GFR, TROPHS ####[place] [address] [place], [place] [address] Platelet 217 10 3/mcL Normal 130-400 [facility] ([place]) Comment on above: Performed By: #### A NABIL NY, MIREILLE, BMP, ADIFF, CBC, GFR, TROPHS ####[place] [address] [place], [place] [address] Platelet mean volume (Bld) [Entitic vol] 7.4 fL Normal 7.4-10.4 [facility] ([place]) Comment on above: Performed By: #### A NABIL NY, MIREILLE, BMP, ADIFF, CBC, GFR, TROPHS ####[place] [address] [place], [place] [address] RBC 4.56 10 6/mcL Normal 4.04-6.13 [facility] ([place]) Comment on above: Performed By: #### A NABIL NY, MIREILLE, BMP, ADIFF, CBC, GFR, TROPHS ####[place] [address] [place], [place] [address] WBC 7.4 10 3/mcL Normal 4.6-10.8 [facility] ([place]) Comment on above: Performed By: #### A NABIL NY, MIREILLE, BMP, ADIFF, CBC, GFR, TROPHS ####[place] [address] [place], [place] [address] Watson 07-30-2023 Potassium [Moles/Vol] 3.7 mmol/L Normal 3.5-5.1 [facility] ([place]) Comment on above: Performed By: #### K , MG ####[place] [address] [place], [place] [address] LABORATORYOrdered By: SYSTEM SYSTEM on 07-30-2023 Magnesium [Mass/Vol] 1.9 mg/dL Normal 1.8 - 2 .4 mg/dL AO ADM SS Potassium [Moles/Vol] 3.7 mmol/L Normal 3.5 - 5.1 mmol/L AO ADM SS Basophil, Absolute 0.0 103/mcL Normal 0.0 - 0.2 10^3/mcL AO Workflow SS Basophils/100 WBC (Bld) 0.4 % Normal 0.0 - 2.5 % AO Workflow SS Calcium [Mass/Vol] 8.2 mg/dL Low 8.4 - 10. 2 mg/dL AO ADM SS Chloride [Moles/Vol] 103 mmol/L Normal 98 - 10 7 mmol/L AO ADM SS CO2 [Moles/Vol] 30 mmol/L High 22 - 29 mmol/L AO ADM SS Creatinine [Mass/Vol] 1.37 mg/dL High 0.70 - 1.30 mg/dL AO ADM SS Electrolyte Balance 8.0 mEq/L Normal 4.0 - 15 .0 mEq/L AO ADM SS Eosinophil, Absolute 0.0 103/mcL Normal 0.0 - 0 .4 10^3/mcL AO Workflow SS Eosinophils/100 WBC (Bld) 0.5 % Normal 0.0 - 7.0 % AO Workflow SS Erythrocyte distribution width (RBC) [Ratio] 16.2 % High 11.5 - 14.5 % AO Workflow SS GFR/1.73 sq M.predicted among blacks MDRD (S/P/Bld) [Vol rate/Area] 65 ml/min/1.73sqm Invalid Interpretation Code AO Chemistry S Comment on above: Interpretive Data: GFR Population mean for , Non- Americans Ages 20-29 = 116 mL/min/1.73 sq.m. Ages 30-39 = 107 mL/min/1.73 sq.m. Ages 40-49 = 99 mL/min/1.73 sq.m. Ages 50-59 = 93 mL/min/1.73 sq.m. Ages 60-69 = 85 mL/min/1.73 sq.m. Ages 70+ = 75 mL/min/1.73 sq.m. Chronic Kidney Disease: Less than 60 mL/min/1.73 square meters End Stage Renal Disease: Less than 15 mL/min/1.73 square meters GFR/1.73 sq M.predicted among non-blacks MDRD (S/P/Bld) [Vol rate/Area] 54 ml/min/1.73sqm Invalid Interpretation Code AO Chemistry S Comment on above: Interpretive Data: GFR Population mean for , Non- Americans Ages 20-29 = 116 mL/min/1.73 sq.m. Ages 30-39 = 107 mL/min/1.73 sq.m. Ages 40-49 = 99 mL/min/1.73 sq.m. Ages 50-59 = 93 mL/min/1.73 sq.m. Ages 60-69 = 85 mL/min/1.73 sq.m. Ages 70+ = 75 mL/min/1.73 sq.m. Chronic Kidney Disease: Less than 60 mL/min/1.73 square meters End Stage Renal Disease: Less than 15 mL/min/1.73 square meters Glucose [Mass/Vol] 189 mg/dL High 70 - 105 mg/dL AO ADM SS Hematocrit (Bld) [Volume fraction] 41.6 % Low 42.0 - 52.0 % AO Workflow SS Hemoglobin (Bld) [Mass/Vol] 13.7 G/dL Low 14.0 - 18.0 G/dL AO Workflow SS Lymphocyte, Absolute 0.4 103/mcL Low 0.8 - 3 .9 10^3/mcL AO Workflow SS Lymphocytes/100 WBC (Bld) 5.9 % Low 10.0 - 50.0 % AO Workflow SS MCH (RBC) [Entitic mass] 30.1 pg Normal 27.0 - 31.2 pg AO Workflow SS MCHC 33.0 G/dL Normal 31.8 - 35.4 G/dL AO Workflow SS MCV (RBC) [Entitic vol] 91.3 fL Normal 80.0 - 94.0 fL AO Workflow SS Monocyte distribution width Auto (Bld) [Entitic vol] 18.26 1 Normal 0.00 - 20.00 AO Workflow SS Comment on above: Result Comment: For ED adult patients suspected of sepsis, MDW<=20.0 does not rule out sepsis or risk of sepsis Monocyte, Absolute 0.5 103/mcL Normal 0.2 - 1.0 10^3/mcL AO Workflow SS Monocytes/100 WBC (Bld) 7.3 % Normal 1.7 - 13.0 % AO Workflow SS Natriuretic peptide.B prohormone N-Terminal [Mass/Vol] 21926 pg/mL High 0 - 125 pg/mL AO ADM SS Comment on above: Interpretive Data: N T-proBNP results of less than 300 pg/mL effectively rules out acute congestive heart failure with 99% negative predictive value. Neutrophil, Absolute 6.4 103/mcL High 2.9 - 6 .2 10^3/mcL AO Workflow SS Neutrophils/100 WBC (Bld) 85.9 % High 37.0 - 80.0 % AO Workflow SS Platelet mean volume (Bld) [Entitic vol] 7.4 fL Normal 7.4 - 10.4 fL AO Workflow SS Platelets (Bld) [#/Vol] 217 103/mcL Normal 130 - 400 10^3/mcL AO Workflow SS RBC (Bld) [#/Vol] 4.56 106/mcL Normal 4.04 - 6.1 3 10^6/mcL AO Workflow SS Sodium [Moles/Vol] 141 mmol/L Normal 136 - 145 mmol/L AO ADM SS Troponin I.cardiac DL <= 0.01 ng/mL [Mass/Vol] 24 ng/L Normal 0 - 76 ng/L AO ADM SS Comment on above: Interpretive Data: H igh Sensitive Troponin I Reference Ranges: Female: 0-51 ng/L Male: 0-76 ng/L Testing performed on [employer] using a homogeneous sandwich chemiluminescent immunoassay based on [employer] technology. Urea nitrogen [Mass/Vol] 24 mg/dL High 7 - 18 mg/dL AO ADM SS Urea nitrogen/Creatinine [Mass ratio] 18 ratio Normal 7 - 27 ratio AO ADM SS WBC (Bld) [#/Vol] 7.4 103/mcL Normal 4.6 - 10.8 10^3/mcL AO Workflow SS MGon 07-30-2023 Magnesium [Mass/Vol] 1.9 mg/dL Normal 1.8-2.4 [facility] ([place]) Comment on above: Performed By: #### K , MG ####[place] [address] [place], [place] [address] PBNPon 07-30-2023 Natriuretic peptide B (Bld) [Mass/Vol] 31340 pg/mL High 0-125 [facility] ([place]) Comment on above: Result Comment: NT-p roBNP results of less than 300 pg/mL effectivelyrules out acute congestive heart failure with 99% negative predictive value. Performed By: #### A YANELY, W, PBNP, BMP, ADIFF, CBC, GFR, TROPHS ####[place] [address] [place], [place] [address] TROPHSon 07-30-2023 High Sensitivity Troponin I 24 ng/L Normal 0-76 [facility] ([place]) Comment on above: Result Comment: High Sensitive Troponin I Reference Ranges:Female: 0-51 ng/LMale: 0-76 ng/LTesting performed on [employer] using a homogeneous sandwich chemiluminescent immunoassay based on [employer] technology. Performed By: #### A NABIL [place], PBNP, BMP, ADIFF, CBC, GFR, TROPHS ####[place] [address] [place], [place] [address] XR CHEST 1 VIEWon 07-30-2023 XR CHEST 1 VIEW Normal [facility] ([place]) CBLon 07-26-2023 CBL Normal [facility]) .Auto Diffon 07-20-2023 Basophil, Absolute 0.0 10 3/mcL Normal 0.0-0.2 [facility] ([place]) Comment on above: Performed By: #### M DW, CBC, BMP, GFR, ADIFF, ANEU ####[place] [address] [place], [place] [address] Basophils/100 WBC (Bld) 0.7 % Normal 0.0-2.5 [facility] ([place]) Comment on above: Performed By: #### M DW, CBC, BMP, GFR, ADIFF, ANEU ####[place] [address] [place], [place] [address] Eosinophil, Absolute 0.1 10 3/mcL Normal 0.0-0.4 [facility] ([place]) Comment on above: Performed By: #### M DW, CBC, BMP, GFR, ADIFF, ANEU ####[place] [address] [place], [place] [address] Eosinophils/100 WBC (Bld) 2.3 % Normal 0.0-7.0 [facility] ([place]) Comment on above: Performed By: #### M DW, CBC, BMP, GFR, ADIFF, ANEU ####[place] [address] [place], [place] [address] Lymphocyte, Absolute 0.8 10 3/mcL Normal 0.8-3.9 [facility] ([place]) Comment on above: Performed By: #### M DW, CBC, BMP, GFR, ADIFF, ANEU ####[place] [address] [place], [place] [address] Lymphocytes/100 WBC (Bld) 12.2 % Normal 10.0-50.0 [facility] ([place]) Comment on above: Performed By: #### M DW, CBC, BMP, GFR, ADIFF, ANEU ####[place] [address] [place], [place] [address] Monocyte, Absolute 0.6 10 3/mcL Normal 0.2-1.0 [facility] ([place]) Comment on above: Performed By: #### M DW, CBC, BMP, GFR, ADIFF, ANEU ####[place] [address] [place], [place] [address] Monocytes/100 WBC (Bld) 10.4 % Normal 1.7-13.0 [facility] ([place]) Comment on above: Performed By: #### M DW, CBC, BMP, GFR, ADIFF, ANEU ####[place] [address] [place], [place] [address] Neutrophils/100 WBC (Bld) 74.4 % Normal 37.0-80.0 [facility] ([place]) Comment on above: Performed By: #### M DW, CBC, BMP, GFR, ADIFF, ANEU ####[place] [address] [place], [place] [address] .GFRon 07-20-2023 GFR 62 ml/min/1.73sqm Normal [facility] ([place]) Comment on above: Result Comment: GFR Population mean for , Non- Americans Ages 20-29 = 116 mL/min/1.73 sq.m. Ages 30-39 = 107 mL/min/1.73 sq.m. Ages 40-49 = 99 mL/min/1.73 sq.m. Ages 50-59 = 93 mL/min/1.73 sq.m. Ages 60-69 = 85 mL/min/1.73 sq.m. Ages 70+ = 75 mL/min/1.73 sq.m.Chronic Kidney Disease: Less than 60 mL/min/1.73 square metersEnd Stage Renal Disease: Less than 15 mL/min/1.73 square meters Performed By: #### M DW, CBC, BMP, GFR, ADIFF, ANEU ####[place] [address] [place], [place] [address] GFR Non- 51 ml/min/1.73sqm Normal [facility] ([place]) Comment on above: Result Comment: GFR Population mean for , Non- Americans Ages 20-29 = 116 mL/min/1.73 sq.m. Ages 30-39 = 107 mL/min/1.73 sq.m. Ages 40-49 = 99 mL/min/1.73 sq.m. Ages 50-59 = 93 mL/min/1.73 sq.m. Ages 60-69 = 85 mL/min/1.73 sq.m. Ages 70+ = 75 mL/min/1.73 sq.m.Chronic Kidney Disease: Less than 60 mL/min/1.73 square metersEnd Stage Renal Disease: Less than 15 mL/min/1.73 square meters Performed By: #### M DW, CBC, BMP, GFR, ADIFF, ANEU ####[place] [address] [place], [place] [address] .MDWon 07-20-2023 Monocyte Distribution Width 17.69 Normal 0.00-20.00 [facility] ([place]) Comment on above: Result Comment: For ED adult patients suspected of sepsis, MDW<=20.0 does not rule out sepsis or risk of sepsis Performed By: #### M DW, CBC, BMP, GFR, ADIFF, ANEU ####[place] [address] [place], [place] [address] .NEUABSon 07-20-2023 Neutrophil, Absolute 4.6 10 3/mcL Normal 2.9-6.2 [facility] ([place]) Comment on above: Performed By: #### M DW, CBC, BMP, GFR, ADIFF, ANEU ####[place] [address] [place], [place] [address] BMPon 07-20-2023 BUN/Creatinine Ratio 11 ratio Normal 7-27 [facility] ([place]) Comment on above: Performed By: #### M DW, CBC, BMP, GFR, ADIFF, ANEU ####[place] [address] [place], [place] [address] Calcium [Mass/Vol] 7.9 mg/dL Low 8.4-10.2 [facility] ([place]) Comment on above: Performed By: #### M DW, CBC, BMP, GFR, ADIFF, ANEU ####[place] [address] [place], [place] [address] Chloride [Moles/Vol] 97 mmol/L Low 98-107 [facility] ([place]) Comment on above: Performed By: #### M DW, CBC, BMP, GFR, ADIFF, ANEU ####[place] [address] [place], [place] [address] CO2 [Moles/Vol] 28 mmol/L Normal 22-29 [facility] ([place]) Comment on above: Performed By: #### M DW, CBC, BMP, GFR, ADIFF, ANEU ####[place] [address] [place], [place] [address] Creatinine [Mass/Vol] 1.43 mg/dL High 0.70-1.30 [facility] ([place]) Comment on above: Performed By: #### M DW, CBC, BMP, GFR, ADIFF, ANEU ####[place] [address] [place], [place] [address] Electrolyte Balance 9.0 mEq/L Normal 4.0-15.0 [facility] ([place]) Comment on above: Performed By: #### M DW, CBC, BMP, GFR, ADIFF, ANEU ####[place] [address] [place], [place] [address] Glucose [Mass/Vol] 163 mg/dL High 70-105 [facility] ([place]) Comment on above: Performed By: #### M DW, CBC, BMP, GFR, ADIFF, ANEU ####[place] [address] [place], [place] [address] Potassium [Moles/Vol] 4.7 mmol/L Normal 3.5-5.1 [facility] ([place]) Comment on above: Performed By: #### M DW, CBC, BMP, GFR, ADIFF, ANEU ####[place] [id number], [place] [address] Sodium [Moles/Vol] 134 mmol/L Low 136-145 [facility] ([place]) Comment on above: Performed By: #### M DW, CBC, BMP, GFR, ADIFF, ANEU ####[place] [id number], [place] [address] Urea nitrogen [Mass/Vol] 16 mg/dL Normal 7-18 [facility] ([place]) Comment on above: Performed By: #### M DW, CBC, BMP, GFR, ADIFF, ANEU ####[place] [address], [place] [address] CBCon 07-20-2023 Erythrocyte distribution width (RBC) [Ratio] 15.5 % High 11.5-14.5 [facility] ([place]) Comment on above: Performed By: #### M DW, CBC, BMP, GFR, ADIFF, ANEU ####[place] [address] [place], [place] [address] Hematocrit (Bld) [Volume fraction] 41.0 % Low 42.0-52.0 [facility] ([place]) Comment on above: Performed By: #### M DW, CBC, BMP, GFR, ADIFF, ANEU ####[place] [address], [place] [address] Hgb 13.8 G/dL Low 14.0-18.0 [facility] ([place]) Comment on above: Performed By: #### M DW, CBC, BMP, GFR, ADIFF, ANEU ####[place] [address] [place], [place] [address] MCH (RBC) [Entitic mass] 30.0 pg Normal 27.0-31.2 [facility] ([place]) Comment on above: Performed By: #### M DW, CBC, BMP, GFR, ADIFF, ANEU ####[place] [id number] [place], [place] [address] MCHC 33.7 G/dL Normal 31.8-35.4 [facility] ([place]) Comment on above: Performed By: #### M DW, CBC, BMP, GFR, ADIFF, ANEU ####[place] [address], [place] [address] MCV (RBC) [Entitic vol] 89.0 fL Normal 80.0-94.0 [facility] ([place]) Comment on above: Performed By: #### M DW, CBC, BMP, GFR, ADIFF, ANEU ####[place] [address] [place], [place] [address] Platelet 151 10 3/mcL Normal 130-400 [facility] ([place]) Comment on above: Performed By: #### M DW, CBC, BMP, GFR, ADIFF, ANEU ####[place] [address] [place], [place] [address] Platelet mean volume (Bld) [Entitic vol] 7.3 fL Low 7.4-10.4 [facility] ([place]) Comment on above: Performed By: #### M DW, CBC, BMP, GFR, ADIFF, ANEU ####[place] [address] [place], [place] [address] RBC 4.61 10 6/mcL Normal 4.04-6.13 [facility] ([place]) Comment on above: Performed By: #### M DW, CBC, BMP, GFR, ADIFF, ANEU ####[place] [address] [place], [place] [address] WBC 6.2 10 3/mcL Normal 4.6-10.8 [facility] ([place]) Comment on above: Performed By: #### M DW, CBC, BMP, GFR, ADIFF, ANEU ####[place] [address] [place], [place] [address] LABORATORYOrdered By: SYSTEM SYSTEM on 07-20-2023 Basophil, Absolute 0.0 103/mcL Normal 0.0 - 0.2 10^3/mcL AO Workflow SS Basophils/100 WBC (Bld) 0.7 % Normal 0.0 - 2.5 % AO Workflow SS Calcium [Mass/Vol] 7.9 mg/dL Low 8.4 - 10. 2 mg/dL AO ADM SS Chloride [Moles/Vol] 97 mmol/L Low 98 - 10 7 mmol/L AO ADM SS CO2 [Moles/Vol] 28 mmol/L Normal 22 - 29 mmol/L AO ADM SS Creatinine [Mass/Vol] 1.43 mg/dL High 0.70 - 1.30 mg/dL AO ADM SS Electrolyte Balance 9.0 mEq/L Normal 4.0 - 15 .0 mEq/L AO ADM SS Eosinophil, Absolute 0.1 103/mcL Normal 0.0 - 0 .4 10^3/mcL AO Workflow SS Eosinophils/100 WBC (Bld) 2.3 % Normal 0.0 - 7.0 % AO Workflow SS Erythrocyte distribution width (RBC) [Ratio] 15.5 % High 11.5 - 14.5 % AO Workflow SS GFR/1.73 sq M.predicted among blacks MDRD (S/P/Bld) [Vol rate/Area] 62 ml/min/1.73sqm Invalid Interpretation Code AO Chemistry S Comment on above: Interpretive Data: GFR Population mean for , Non- Americans Ages 20-29 = 116 mL/min/1.73 sq.m. Ages 30-39 = 107 mL/min/1.73 sq.m. Ages 40-49 = 99 mL/min/1.73 sq.m. Ages 50-59 = 93 mL/min/1.73 sq.m. Ages 60-69 = 85 mL/min/1.73 sq.m. Ages 70+ = 75 mL/min/1.73 sq.m. Chronic Kidney Disease: Less than 60 mL/min/1.73 square meters End Stage Renal Disease: Less than 15 mL/min/1.73 square meters GFR/1.73 sq M.predicted among non-blacks MDRD (S/P/Bld) [Vol rate/Area] 51 ml/min/1.73sqm Invalid Interpretation Code AO Chemistry S Comment on above: Interpretive Data: GFR Population mean for , Non- Americans Ages 20-29 = 116 mL/min/1.73 sq.m. Ages 30-39 = 107 mL/min/1.73 sq.m. Ages 40-49 = 99 mL/min/1.73 sq.m. Ages 50-59 = 93 mL/min/1.73 sq.m. Ages 60-69 = 85 mL/min/1.73 sq.m. Ages 70+ = 75 mL/min/1.73 sq.m. Chronic Kidney Disease: Less than 60 mL/min/1.73 square meters End Stage Renal Disease: Less than 15 mL/min/1.73 square meters Glucose [Mass/Vol] 163 mg/dL High 70 - 105 mg/dL AO ADM SS Hematocrit (Bld) [Volume fraction] 41.0 % Low 42.0 - 52.0 % AO Workflow SS Hemoglobin (Bld) [Mass/Vol] 13.8 G/dL Low 14.0 - 18.0 G/dL AO Workflow SS Lymphocyte, Absolute 0.8 103/mcL Normal 0.8 - 3 .9 10^3/mcL AO Workflow SS Lymphocytes/100 WBC (Bld) 12.2 % Normal 10.0 - 50.0 % AO Workflow SS MCH (RBC) [Entitic mass] 30.0 pg Normal 27.0 - 31.2 pg AO Workflow SS MCHC 33.7 G/dL Normal 31.8 - 35.4 G/dL AO Workflow SS MCV (RBC) [Entitic vol] 89.0 fL Normal 80.0 - 94.0 fL AO Workflow SS Monocyte distribution width Auto (Bld) [Entitic vol] 17.69 1 Normal 0.00 - 20.00 AO Workflow SS Comment on above: Result Comment: For ED adult patients suspected of sepsis, MDW<=20.0 does not rule out sepsis or risk of sepsis Monocyte, Absolute 0.6 103/mcL Normal 0.2 - 1.0 10^3/mcL AO Workflow SS Monocytes/100 WBC (Bld) 10.4 % Normal 1.7 - 13.0 % AO Workflow SS Neutrophil, Absolute 4.6 103/mcL Normal 2.9 - 6 .2 10^3/mcL AO Workflow SS Neutrophils/100 WBC (Bld) 74.4 % Normal 37.0 - 80.0 % AO Workflow SS Platelet mean volume (Bld) [Entitic vol] 7.3 fL Low 7.4 - 10.4 fL AO Workflow SS Platelets (Bld) [#/Vol] 151 103/mcL Normal 130 - 400 10^3/mcL AO Workflow SS Potassium [Moles/Vol] 4.7 mmol/L Normal 3.5 - 5.1 mmol/L AO ADM SS RBC (Bld) [#/Vol] 4.61 106/mcL Normal 4.04 - 6.1 3 10^6/mcL AO Workflow SS Sodium [Moles/Vol] 134 mmol/L Low 136 - 145 mmol/L AO ADM SS Urea nitrogen [Mass/Vol] 16 mg/dL Normal 7 - 18 mg/dL AO ADM SS Urea nitrogen/Creatinine [Mass ratio] 11 ratio Normal 7 - 27 ratio AO ADM SS WBC (Bld) [#/Vol] 6.2 103/mcL Normal 4.6 - 10.8 10^3/mcL AO Workflow SS Emergency Department Summary on 06-29-2023 Emergency Department Summary [facility] Medical Records Department [address] [place] [address] Emergency Department Summary 06/29/23 MR#: [id number] Acct: [id number] Name: YUSEF MUIR Jr. Rep #: [id number] : 1965 58 From: Radha Jimenez MD PCP: GUADALUPE RUGGIERO MD Status:DEP ER Location: ED HPI History of Present Illness Chief Complaint: Lower Extremity Injury Informant: patient Narrative Narrative: Patient presents with 2-week history of increasing pain to his feet bilaterally. He has dried and cracked skin that he states is very painful. He also has neuropathy that he is on gabapentin for. He presents earlier this morning via EMS secondary to increased pain. He states his neighbor came over to put dressings on his feet and he was shaking because of pain and she was concerned he might be having a seizure so they called 911. Patient did go to [facility] emergency room yesterday. He was given a prescription for ammonium lactate topical cream and referred to podiatry. Patient states he is only taking gabapentin for pain. [facility] report shows no prescriptions other than gabapentin in the past year. [facility] Medical History ACL tear Biceps muscle tear Chronic pain Diabetes Hypertension Meniscal injury Neuropathy Home Medications gabapentin 600 mg tablet 600 mg PO TID nerve pain 05/18/19 [History Last Taken 07/23/20] Ropinirole ER 1 mg PO QHS restless leg syndrome 05/30/19 [History Last Taken 07/23/20] cyclobenzaprine 10 mg tablet 10 mg PO TID PRN PRN Muscle Spasm 05/14/20 [History Last Taken 07/23/20] simvastatin 10 mg tablet 10 mg PO DAILY cholesterol 05/14/20 [History Last Taken 07/23/20] glimepiride 2 mg tablet 2 mg PO DAILY #30 TABLETS 07/24/20 [Rx Last Taken Unknown] lisinopril 20 mg tablet 20 mg PO DAILY #30 tabs 07/24/20 [Rx Last Taken Unknown] insulin glargine 100 unit/mL (3 mL) subcutaneous pen (Lantus Solostar U-100 Insulin) 20 unit subcut BID 01/26/21 [History Last Taken 01/26/21] cephalexin 500 mg capsule 500 mg PO Q6 #40 CAPSULES 06/29/23 [Rx Last Taken Unknown] furosemide 20 mg tablet 20 mg PO DAILY 06/29/23 [History Last Taken Unknown] hydrocodone-acetaminophe n 5-325mg 5mg-325mg 1 tab PO Q6H PRN PRN Pain 3 days #10 TABLETS 06/29/23 [Rx Last Taken Unknown] magnesium oxide 400 mg (241.3 mg magnesium) tablet 400 mg PO BID 06/29/23 [History Last Taken Unknown] potassium chloride 20 mEq tablet,extended release 20 meq PO DAILY 06/29/23 [History Last Taken Unknown] Allergy/AdvReac Type Severity Reaction Status Date / Time aspirin Allergy BLODDY NOSE Verified 04/05/21 07:31 Social History Smoking Status: Former smoker ROS ROS ED Constitutional Constitutional ED: Denies chills or fever(s) Eyes Eyes: Denies discharge from eye(s) ENT ENT ED: Denies discharge from eye(s), rhinorrhea or sore throat Cardiovascular Cardiovascular: Denies chest pain Respiratory/Chest Respiratory/Chest: Denies cough or dyspnea Gastrointestinal Gastrointestinal: Denies abdominal pain, nausea or vomiting Genitourinary Genitourinary ED: Denies dysuria Musculoskeletal Musculoskeletal: Reports extremity pain; Denies back pain Integumentary Denies Abrasions or rash Neurologic Neurologic: Reports paresthesias; Denies headache(s) or weakness Psychiatric Psychiatric: Reports anxiety; Denies depression Allergic/Immunologic Allergic/Immunologic ED: Denies lip swelling or urticaria EXAM Physical Exam Const Vital Signs: 06/29/23 05:19 Temperature 97.8 F Temperature Source Oral Pulse Rate 95 Respiratory Rate 96 H Blood Pressure 130/85 H Blood Pressure Mean 100 Oxygen Delivery Method Room Air Positive well nourished and well developed General Appearance ED: well developed HEENT Reports moist mucous membranes Eyes EOMs intact bilaterally Chest Wall inspection of chest normal and palpation of chest normal Resp normal respiratory effort and clear to auscultation bilaterally Cardio regular rate and regular rhythm GI non-tender Palpation: soft Extremity Extremity Narrative: Left foot: Patient has linear crack in the skin over the dorsal surface of the left great toe as well as at the plantar surface of the first MTP joint. Mild surrounding erythema noted on the plantar surface. No drainage from the wound. He has a long deep crack in the skin over his heel. Right foot: Small crack to the skin noted along the great toe. No surrounding drainage or fluctuance. No calf tenderness or edema. Neuro oriented x3 and no sensory deficits noted Motor Exam: strength 5/5 throughout Psych mental status grossly normal MDM MDM MDM Narrative Medical decision making narrative: Patient will be given a dose of [place] here (more content not included)... Normal [facility] CBLon 06-11-2023 CBL Normal [facility] ([place]) .Auto Diffon 06-06-2023 Basophil, Absolute 0.0 10 3/mcL Normal 0.0-0.2 [facility] ([place]) Comment on above: Performed By: #### T MADI MENJIVAR GFR, IRAJ, NABIL, BMP, CBC ####[place] [address] [place], [place] [address] Basophils/100 WBC (Bld) 0.5 % Normal 0.0-2.5 [facility] ([place]) Comment on above: Performed By: #### T MADI MENJIVAR GFR, ANEU, MDW, BMP, CBC ####[place] [address] [place], [place] [address] Eosinophil, Absolute 0.0 10 3/mcL Normal 0.0-0.4 [facility] ([place]) Comment on above: Performed By: #### T AMDI MENJIVAR GFR, IRAJ, NABIL, BMP, CBC ####[place] [address] [place], [place] [address] Eosinophils/100 WBC (Bld) 0.5 % Normal 0.0-7.0 [facility] ([place]) Comment on above: Performed By: #### T OTTO, ADIFF, GFR, ANEU, MDW, BMP, CBC ####[place] [address] [place], [place] [address] Lymphocyte, Absolute 2.0 10 3/mcL Normal 0.8-3.9 [facility] ([place]) Comment on above: Performed By: #### T GENNAHS, ADIFF, GFR, ANEU, MDW, BMP, CBC ####[place] [address] [place], [place] [address] Lymphocytes/100 WBC (Bld) 22.4 % Normal 10.0-50.0 [facility] ([place]) Comment on above: Performed By: #### T OTTO, ADIFF, GFR, ANEU, MDW, BMP, CBC ####[place] [address] [place], [place] [address] Monocyte, Absolute 1.1 10 3/mcL High 0.2-1.0 [facility] ([place]) Comment on above: Performed By: #### T OTTO, ADIFF, GFR, ANEU, MDW, BMP, CBC ####[place] [address] [place], [place] [address] Monocytes/100 WBC (Bld) 12.5 % Normal 1.7-13.0 [facility] ([place]) Comment on above: Performed By: #### T ROPZOE, ADIFF, GFR, ANEU, MDW, BMP, CBC ####[place] [address] [place], [place] [address] Neutrophils/100 WBC (Bld) 64.1 % Normal 37.0-80.0 [facility] ([place]) Comment on above: Performed By: #### T OTTO, ADIFF, GFR, ANEU, MDW, BMP, CBC ####[place] [address] [place], [place] [address] .GFRon 06-06-2023 GFR Non- 38 ml/min/1.73sqm Normal [facility] ([place]) Comment on above: Result Comment: GFR Population mean for , Non- Americans Ages 20-29 = 116 mL/min/1.73 sq.m. Ages 30-39 = 107 mL/min/1.73 sq.m. Ages 40-49 = 99 mL/min/1.73 sq.m. Ages 50-59 = 93 mL/min/1.73 sq.m. Ages 60-69 = 85 mL/min/1.73 sq.m. Ages 70+ = 75 mL/min/1.73 sq.m.Chronic Kidney Disease: Less than 60 mL/min/1.73 square metersEnd Stage Renal Disease: Less than 15 mL/min/1.73 square meters Performed By: #### T OTTO, ADIFF, GFR, ANEU, MDW, BMP, CBC ####[place] [address] [place], [place] [address] GFR 46 ml/min/1.73sqm Normal [facility] ([place]) Comment on above: Result Comment: GFR Population mean for , Non- Americans Ages 20-29 = 116 mL/min/1.73 sq.m. Ages 30-39 = 107 mL/min/1.73 sq.m. Ages 40-49 = 99 mL/min/1.73 sq.m. Ages 50-59 = 93 mL/min/1.73 sq.m. Ages 60-69 = 85 mL/min/1.73 sq.m. Ages 70+ = 75 mL/min/1.73 sq.m.Chronic Kidney Disease: Less than 60 mL/min/1.73 square metersEnd Stage Renal Disease: Less than 15 mL/min/1.73 square meters Performed By: #### T OTTO, ADIFF, GFR, ANEU, MDW, BMP, CBC ####[place] [address] [place], [place] [address] .MDWon 06-06-2023 Monocyte Distribution Width 19.66 Normal 0.00-20.00 [facility] ([place]) Comment on above: Result Comment: For ED adult patients suspected of sepsis, MDW<=20.0 does not rule out sepsis or risk of sepsis Performed By: #### T GENNAHS, ADIFF, GFR, ANEU, MDW, BMP, CBC ####[place] [address] [place], [place] [address] .NEUABSon 06-06-2023 Neutrophil, Absolute 5.6 10 3/mcL Normal 2.9-6.2 [facility] ([place]) Comment on above: Performed By: #### T MADI MENJIVAR, GFR, ANEU, MDW, BMP, CBC ####[place] [address] [place], [place] [address] Daisy 06-06-2023 Ethanol Level 110 mg/dL High 0-3 [facility] ([place]) Comment on above: Performed By: #### A LC ####[place] [address] [place], [place] [address] Diann 06-06-2023 Ammonia (P) [Moles/Vol] 12 umol/L Normal 11-32 [facility] ([place]) Comment on above: Performed By: #### A MM ####[place] [address] [place], [place] [address] BMPon 06-06-2023 BUN/Creatinine Ratio 18 ratio Normal 7-27 [facility] ([place]) Comment on above: Performed By: #### T MADI MENJIVAR, GFR, ANEU, MDW, BMP, CBC ####[place] [address] [place], [place] [address] Calcium [Mass/Vol] 8.6 mg/dL Normal 8.4-10.2 [facility] ([place]) Comment on above: Performed By: #### T MADI MENJIVAR, GFR, ANEU, MDW, BMP, CBC ####[place] [address] [place], [place] [address] Chloride [Moles/Vol] 93 mmol/L Low 98-107 [facility] ([place]) Comment on above: Performed By: #### T MADI MENJIVAR, GFR, ANEU, MDW, BMP, CBC ####[place] [address] [place], [place] [address] CO2 [Moles/Vol] 25 mmol/L Normal 22-29 [facility] ([place]) Comment on above: Performed By: #### T MADI MENJIVAR, GFR, ANEU, MDW, BMP, CBC ####[facility] [place], [place] [address] Creatinine [Mass/Vol] 1.84 mg/dL High 0.70-1.30 [facility] ([place]) Comment on above: Performed By: #### T OTTO, ADIFF, GFR, ANEU, MDW, BMP, CBC ####[place] [address] [place], [place] [address] Electrolyte Balance 11.0 mEq/L Normal 4.0-15.0 [facility] ([place]) Comment on above: Performed By: #### T OTTO, ADIFF, GFR, ANEU, MDW, BMP, CBC ####[place] [address] [place], [place] [address] Glucose [Mass/Vol] 105 mg/dL Normal 70-105 [facility] ([place]) Comment on above: Performed By: #### T OTTO, ADSARAY, GFR, ANEU, MDW, BMP, CBC ####[place] [address] [place], [place] [address] Potassium [Moles/Vol] 4.5 mmol/L Normal 3.5-5.1 [facility] ([place]) Comment on above: Performed By: #### T OTTO, MADI, GFR, ANEU, MDW, BMP, CBC ####[place] [address] [place], [place] [address] Sodium [Moles/Vol] 129 mmol/L Low 136-145 [facility] ([place]) Comment on above: Performed By: #### T OTTO, ADIFF, GFR, ANEU, MDW, BMP, CBC ####[place] [address] [place], [place] [address] Urea nitrogen [Mass/Vol] 33 mg/dL High 7-18 [facility] ([place]) Comment on above: Performed By: #### T OTTO, ADIFF, GFR, ANEU, MDW, BMP, CBC ####[place] [address] [place], [place] [address] CBCon 06-06-2023 Erythrocyte distribution width (RBC) [Ratio] 13.8 % Normal 11.5-14.5 [facility] ([place]) Comment on above: Performed By: #### T OTTO, MADI, GFR, ANEU, MDW, BMP, CBC ####[place] [address] [place], [place] [address] Hematocrit (Bld) [Volume fraction] 48.1 % Normal 42.0-52.0 [facility] ([place]) Comment on above: Performed By: #### T OTTO, ADIFF, GFR, ANEU, MDW, BMP, CBC ####[place] [address] [place], [place] [address] Hgb 16.1 G/dL Normal 14.0-18.0 [facility] ([place]) Comment on above: Performed By: #### T OTTO, MADI, GFR, ANEU, MDW, BMP, CBC ####[place] [address] [place], [place] [address] MCH (RBC) [Entitic mass] 30.4 pg Normal 27.0-31.2 [facility] ([place]) Comment on above: Performed By: #### T OTTO, MADI, GFR, ANEU, MDW, BMP, CBC ####[place] [address] [place], [place] [address] MCHC 33.5 G/dL Normal 31.8-35.4 [facility] ([place]) Comment on above: Performed By: #### T OTTO, ADIFF, GFR, ANEU, MDW, BMP, CBC ####[place] [address] [place], [place] [address] MCV (RBC) [Entitic vol] 90.5 fL Normal 80.0-94.0 [facility] ([place]) Comment on above: Performed By: #### T OTTO, ADIFF, GFR, ANEU, MDW, BMP, CBC ####[place] [address] [place], [place] [address] Platelet 219 10 3/mcL Normal 130-400 [facility] ([place]) Comment on above: Performed By: #### T OTTO, ADIFF, GFR, ANEU, MDW, BMP, CBC ####[place] [address] [place], [place] [address] Platelet mean volume (Bld) [Entitic vol] 8.5 fL Normal 7.4-10.4 [facility] ([place]) Comment on above: Performed By: #### T MADI MENJIVAR, MICAELA, NABIL GALO, MAUREEN, CBC ####[place] [address] [place], [place] [address] RBC 5.31 10 6/mcL Normal 4.04-6.13 [facility] ([place]) Comment on above: Performed By: #### T MADI MENJIVAR, MICAELA, IRAJ, NABIL, BMP, CBC ####[place] [address] [place], [place] [address] WBC 8.7 10 3/mcL Normal 4.6-10.8 [facility] ([place]) Comment on above: Performed By: #### T MADI MENJIVAR, MICAELA, NABIL GALO, BMP, CBC ####[place] [address] [place], [place] [address] CT HEAD OR BRAIN W/O CONTRAS Ton 06-06-2023 CT HEAD OR BRAIN W/O CONTRAST Normal [facility] ([place]) LABORATORYOrdered By: Acacia Hickey on 06-06-2023 Amphetamines Screen Ql (U) Negative *NA* (06/06/23 7:13 PM) Invalid Interpretation Code Negative AO ADM SS Barbiturates Screen Ql (U) Negative *NA* (06/06/23 7:13 PM) Invalid Interpretation Code Negative AO ADM SS Benzodiazepines Ql (U) Negative *NA* (06/06/23 7:13 PM) Invalid Interpretation Code Negative AO ADM SS Benzoylecgonine Screen Ql (U) Negative *NA* (06/06/23 7:13 PM) Invalid Interpretation Code Negative AO ADM SS Cannabinoids Screen Ql (U) Negative *NA* (06/06/23 7:13 PM) Invalid Interpretation Code Negative AO ADM SS Methadone Screen Ql (U) Negative *NA* (06/06/23 7:13 PM) Invalid Interpretation Code Negative AO ADM SS Opiates Screen Ql (U) Negative *NA* (06/06/23 7:13 PM) Invalid Interpretation Code Negative AO ADM SS Phencyclidine Ql (U) Negative *NA* (06/06/23 7:13 PM) Invalid Interpretation Code Negative AO ADM SS Urine Drugs screened: See Below 2 (06/06/23 7:13 PM) Normal AO Chemistry S Comment on above: Interpretive Data: T his drug screen is a presumptive screening only. No confirmation will be performed unless requested. Drugs screened include: Threshold Amphetamines/Methamphetamines 1,000 ng/mL Barbiturates 200 ng/mL Benzodiazepine metabolites 200 ng/mL Cannabinoids (THC metabolites) 50 ng/mL Cocaine 300 ng/mL Opiates 300 ng/mL Methadone 300 ng/mL Phencyclidine (PCP) 25 ng/mL Testing has been performed FOR MEDICAL PURPOSES ONLY. LABORATORYOrdered By: SYSTEM SYSTEM on 06-06-2023 Ammonia (P) [Moles/Vol] 12 umol/L Normal 11 - 32 umol/L AO ADM SS Lactate [Moles/Vol] 1.9 mmol/L Normal 0.4 - 2. 0 mmol/L AO ADM SS Basophil, Absolute 0.0 103/mcL Normal 0.0 - 0.2 10^3/mcL AO Workflow SS Basophils/100 WBC (Bld) 0.5 % Normal 0.0 - 2.5 % AO Workflow SS Calcium [Mass/Vol] 8.6 mg/dL Normal 8.4 - 10. 2 mg/dL AO ADM SS Chloride [Moles/Vol] 93 mmol/L Low 98 - 10 7 mmol/L AO ADM SS CO2 [Moles/Vol] 25 mmol/L Normal 22 - 29 mmol/L AO ADM SS Creatinine [Mass/Vol] 1.84 mg/dL High 0.70 - 1.30 mg/dL AO ADM SS Electrolyte Balance 11.0 mEq/L Normal 4.0 - 15 .0 mEq/L AO ADM SS Eosinophil, Absolute 0.0 103/mcL Normal 0.0 - 0 .4 10^3/mcL AO Workflow SS Eosinophils/100 WBC (Bld) 0.5 % Normal 0.0 - 7.0 % AO Workflow SS Erythrocyte distribution width (RBC) [Ratio] 13.8 % Normal 11.5 - 14.5 % AO Workflow SS Ethanol [Mass/Vol] 110 mg/dL High 0 - 3 mg/dL AO AD M SS GFR/1.73 sq M.predicted among blacks MDRD (S/P/Bld) [Vol rate/Area] 46 ml/min/1.73sqm Invalid Interpretation Code AO Chemistry S Comment on above: Interpretive Data: GFR Population mean for , Non- Americans Ages 20-29 = 116 mL/min/1.73 sq.m. Ages 30-39 = 107 mL/min/1.73 sq.m. Ages 40-49 = 99 mL/min/1.73 sq.m. Ages 50-59 = 93 mL/min/1.73 sq.m. Ages 60-69 = 85 mL/min/1.73 sq.m. Ages 70+ = 75 mL/min/1.73 sq.m. Chronic Kidney Disease: Less than 60 mL/min/1.73 square meters End Stage Renal Disease: Less than 15 mL/min/1.73 square meters GFR/1.73 sq M.predicted among non-blacks MDRD (S/P/Bld) [Vol rate/Area] 38 ml/min/1.73sqm Invalid Interpretation Code AO Chemistry S Comment on above: Interpretive Data: GFR Population mean for , Non- Americans Ages 20-29 = 116 mL/min/1.73 sq.m. Ages 30-39 = 107 mL/min/1.73 sq.m. Ages 40-49 = 99 mL/min/1.73 sq.m. Ages 50-59 = 93 mL/min/1.73 sq.m. Ages 60-69 = 85 mL/min/1.73 sq.m. Ages 70+ = 75 mL/min/1.73 sq.m. Chronic Kidney Disease: Less than 60 mL/min/1.73 square meters End Stage Renal Disease: Less than 15 mL/min/1.73 square meters Glucose [Mass/Vol] 105 mg/dL Normal 70 - 105 mg/dL AO ADM SS Hematocrit (Bld) [Volume fraction] 48.1 % Normal 42.0 - 52.0 % AO Workflow SS Hemoglobin (Bld) [Mass/Vol] 16.1 G/dL Normal 14.0 - 18.0 G/dL AO Workflow SS Lymphocyte, Absolute 2.0 103/mcL Normal 0.8 - 3 .9 10^3/mcL AO Workflow SS Lymphocytes/100 WBC (Bld) 22.4 % Normal 10.0 - 50.0 % AO Workflow SS MCH (RBC) [Entitic mass] 30.4 pg Normal 27.0 - 31.2 pg AO Workflow SS MCHC 33.5 G/dL Normal 31.8 - 35.4 G/dL AO Workflow SS MCV (RBC) [Entitic vol] 90.5 fL Normal 80.0 - 94.0 fL AO Workflow SS Monocyte distribution width Auto (Bld) [Entitic vol] 19.66 1 Normal 0.00 - 20.00 AO Workflow SS Comment on above: Result Comment: For ED adult patients suspected of sepsis, MDW<=20.0 does not rule out sepsis or risk of sepsis Monocyte, Absolute 1.1 103/mcL High 0.2 - 1.0 10^3/mcL AO Workflow SS Monocytes/100 WBC (Bld) 12.5 % Normal 1.7 - 13.0 % AO Workflow SS Neutrophil, Absolute 5.6 103/mcL Normal 2.9 - 6 .2 10^3/mcL AO Workflow SS Neutrophils/100 WBC (Bld) 64.1 % Normal 37.0 - 80.0 % AO Workflow SS Platelet mean volume (Bld) [Entitic vol] 8.5 fL Normal 7.4 - 10.4 fL AO Workflow SS Platelets (Bld) [#/Vol] 219 103/mcL Normal 130 - 400 10^3/mcL AO Workflow SS Potassium [Moles/Vol] 4.5 mmol/L Normal 3.5 - 5.1 mmol/L AO ADM SS RBC (Bld) [#/Vol] 5.31 106/mcL Normal 4.04 - 6.1 3 10^6/mcL AO Workflow SS Sodium [Moles/Vol] 129 mmol/L Low 136 - 145 mmol/L AO ADM SS Troponin I.cardiac DL <= 0.01 ng/mL [Mass/Vol] 18.5 ng/L Normal 0.0 - 76.2 ng/L AO ADM SS Urea nitrogen [Mass/Vol] 33 mg/dL High 7 - 18 mg/dL AO ADM SS Urea nitrogen/Creatinine [Mass ratio] 18 ratio Normal 7 - 27 ratio AO ADM SS WBC (Bld) [#/Vol] 8.7 103/mcL Normal 4.6 - 10.8 10^3/mcL AO Workflow SS LACon 06-06-2023 Lactic Acid Lvl 1.9 mmol/L Normal 0.4-2.0 [facility] ([place]) Comment on above: Performed By: #### L ####[address] [place], [place] [address] No Panel Informationon 06-05 Microscopic examination of blood, culture Culture has been received in lab and is no growth to date. Routine cultures are held for 5 days. [facility] Work Phone: TROPHSon 06-06-2023 Troponin I High Sensitivity 18.5 ng/L Normal 0.0-76.2 [facility] ([place]) Comment on above: Performed By: #### T OTTO, MADI, GFR, ANEU, MDW, BMP, CBC ####[place] [id number] [place], [place] [address] UDRUGon 06-06-2023 Amphetamine (u) Negative Normal Negative [facility] ([place]) Comment on above: Performed By: #### U DRUG ####[place] [address] [place], [place] [address] Barbiturate (u) Negative Normal Negative [facility] ([place]) Comment on above: Performed By: #### U DRUG ####[place] [address] [place], [place] [address] Benzodiazepine (u) Negative Normal Negative [facility] ([place]) Comment on above: Performed By: #### U DRUG ####[place] [address] [place], [place] [address] Cannabinoid (u) Negative Normal Negative [facility] ([place]) Comment on above: Performed By: #### U DRUG ####[place] [address] [place], [place] [address] Cocaine Ql (U) Negative Normal Negative [facility] ([place]) Comment on above: Performed By: #### U DRUG ####[place] [address] [place], [place] [address] Methadone Ql (U) Negative Normal Negative [facility] ([place]) Comment on above: Performed By: #### U DRUG ####[place] [address] [place], [place] [address] Opiate (u) Negative Normal Negative [facility] ([place]) Comment on above: Performed By: #### U DRUG ####[place] [address] [place], [place] [address] PCP (u) Negative Normal Negative [facility] ([place]) Comment on above: Performed By: #### U DRUG ####[place] [id number] [place], [place] [address] Urine Drugs screened: See Below Normal [facility] ([place]) Comment on above: Result Comment: This drug screen is a presumptive screening only.No confirmation will be performed unless requested.Drugs screened include: ThresholdAmphetamines/Methamphetamines 1,000 ng/mLBarbiturates 200 ng/mLBenzodiazepine metabolites 200 ng/mLCannabinoids (THC metabolites) 50 ng/mLCocaine 300 ng/mLOpiates 300 ng/mLMethadone 300 ng/mLPhencyclidine (PCP) 25 ng/mLTesting has been performed FOR MEDICAL PURPOSES ONLY. Performed By: #### U DRUG ####[place] [id number] [place], [place] [address] XR CHEST 1 VIEWon 06-06-2023 XR CHEST 1 VIEW Normal [facility] ([place]) XR SHOULDER MINIMUM 2 VIEWS RIGHTon 06-06-2023 XR SHOULDER MINIMUM 2 VIEWS RIGHT Normal [facility] ([place]) .Auto Diffon 06-02-2023 Basophil, Absolute 0.1 10 3/mcL Normal 0.0-0.3 [facility] ([place]) Comment on above: Performed By: #### F ES, BMP, HFP, CBC, ANEU, GFR, MG, FERR, ADIFF ####[address] [address] Basophils/100 WBC (Bld) 1.4 % Normal 0.0-2.5 [facility] ([place]) Comment on above: Performed By: #### F ES, BMP, HFP, CBC, ANEU, GFR, MG, FERR, ADIFF ####[address] [address] Eosinophil, Absolute 0.2 10 3/mcL Normal 0.0-0.7 [facility] ([place]) Comment on above: Performed By: #### F ES, BMP, HFP, CBC, ANEU, GFR, MG, FERR, ADIFF ####[address] [address] Eosinophils/100 WBC (Bld) 2.8 % Normal 0.0-6.0 [facility] ([place]) Comment on above: Performed By: #### F ES, BMP, HFP, CBC, ANEU, GFR, MG, FERR, ADIFF ####[address] [address] Lymphocyte, Absolute 1.3 10 3/mcL Normal 0.9-4.3 [facility] ([place]) Comment on above: Performed By: #### F ES, BMP, HFP, CBC, ANEU, GFR, MG, FERR, ADIFF ####[address] [address] Lymphocytes/100 WBC (Bld) 22.4 % Normal 20.0-40.0 [facility] ([place]) Comment on above: Performed By: #### F ES, BMP, HFP, CBC, ANEU, GFR, MG, FERR, ADIFF ####[address] [address] Monocyte, Absolute 0.6 10 3/mcL Normal 0.1-1.4 [facility] ([place]) Comment on above: Performed By: #### F ES, BMP, HFP, CBC, ANEU, GFR, MG, FERR, ADIFF ####[address] [address] Monocytes/100 WBC (Bld) 10.8 % Normal 2.0-13.0 [facility] ([place]) Comment on above: Performed By: #### F ES, BMP, HFP, CBC, ANEU, GFR, MG, FERR, ADIFF ####[address] [address] Neutrophils/100 WBC (Bld) 62.6 % Normal 50.0-75.0 [facility] ([place]) Comment on above: Performed By: #### F ES, BMP, HFP, CBC, ANEU, GFR, MG, FERR, ADIFF ####[address] [address] .GFRon 06-02-2023 GFR >60 Normal [facility] ([place]) Comment on above: Result Comment: GFR Population mean for , Non- Americans Ages 20-29 = 116 mL/min/1.73 sq.m. Ages 30-39 = 107 mL/min/1.73 sq.m. Ages 40-49 = 99 mL/min/1.73 sq.m. Ages 50-59 = 93 mL/min/1.73 sq.m. Ages 60-69 = 85 mL/min/1.73 sq.m. Ages 70+ = 75 mL/min/1.73 sq.m.Chronic Kidney Disease: Less than 60 mL/min/1.73 square metersEnd Stage Renal Disease: Less than 15 mL/min/1.73 square meters Performed By: #### F ES, BMP, HFP, CBC, ANEU, GFR, MG, FERR, ADIFF ####[address] [address] GFR Non- >60 Normal [facility] ([place]) Comment on above: Result Comment: GFR Population mean for , Non- Americans Ages 20-29 = 116 mL/min/1.73 sq.m. Ages 30-39 = 107 mL/min/1.73 sq.m. Ages 40-49 = 99 mL/min/1.73 sq.m. Ages 50-59 = 93 mL/min/1.73 sq.m. Ages 60-69 = 85 mL/min/1.73 sq.m. Ages 70+ = 75 mL/min/1.73 sq.m.Chronic Kidney Disease: Less than 60 mL/min/1.73 square metersEnd Stage Renal Disease: Less than 15 mL/min/1.73 square meters Performed By: #### F ES, BMP, HFP, CBC, ANEU, GFR, MG, FERR, ADIFF ####[address] [address] .NEUABSon 06-02-2023 Neutrophil, Absolute 3.6 10 3/mcL Normal 2.3-8.1 [facility] ([place]) Comment on above: Performed By: #### F ES, BMP, HFP, CBC, ANEU, GFR, MG, FERR, ADIFF ####[address] [address] BMPon 06-02-2023 BUN/Creatinine Ratio 12.4 ratio Normal 10.0-22.0 [facility] ([place]) Comment on above: Performed By: #### F ES, BMP, HFP, CBC, ANEU, GFR, MG, FERR, ADIFF ####[address] [address] Calcium [Mass/Vol] 8.9 mg/dL Normal 8.7-10.4 [facility] ([place]) Comment on above: Performed By: #### F ES, BMP, HFP, CBC, ANEU, GFR, MG, FERR, ADIFF ####[address] [address] Chloride [Moles/Vol] 98 mmol/L Normal 98-110 [facility] ([place]) Comment on above: Performed By: #### F ES, BMP, HFP, CBC, ANEU, GFR, MG, FERR, ADIFF ####[address] [address] CO2 [Moles/Vol] 34 mmol/L High 22-32 [facility] ([place]) Comment on above: Performed By: #### F ES, BMP, HFP, CBC, ANEU, GFR, MG, FERR, ADIFF ####[address] [address] Creatinine [Mass/Vol] 1.05 mg/dL Normal 0.60-1.40 [facility] ([place]) Comment on above: Performed By: #### F ES, BMP, HFP, CBC, ANEU, GFR, MG, FERR, ADIFF ####[address] [address] Electrolyte Balance 3.0 mEq/L Low 4.0-15.0 [facility] ([place]) Comment on above: Performed By: #### F ES, BMP, HFP, CBC, ANEU, GFR, MG, FERR, ADIFF ####[address] [address] Glucose [Mass/Vol] 159 mg/dL High 70-110 [facility] ([place]) Comment on above: Performed By: #### F ES, BMP, HFP, CBC, ANEU, GFR, MG, FERR, ADIFF ####[address] [address] Potassium [Moles/Vol] 4.4 mmol/L Normal 3.5-5.0 [facility] ([place]) Comment on above: Performed By: #### F ES, BMP, HFP, CBC, ANEU, GFR, MG, FERR, ADIFF ####[place] [address] Sodium [Moles/Vol] 135 mmol/L Low 136-145 [facility] ([place]) Comment on above: Performed By: #### F ES, BMP, HFP, CBC, ANEU, GFR, MG, FERR, ADIFF ####[place] [address] Urea nitrogen [Mass/Vol] 13.0 mg/dL Normal 8.0-22.0 [facility] ([place]) Comment on above: Performed By: #### F ES, BMP, HFP, CBC, ANEU, GFR, MG, FERR, ADIFF ####[place] [address] CBCon 06-02-2023 Erythrocyte distribution width (RBC) [Ratio] 13.7 % Normal 11.5-15.5 [facility] ([place]) Comment on above: Performed By: #### F ES, BMP, HFP, CBC, ANEU, GFR, MG, FERR, ADIFF ####[place] [address] Hematocrit (Bld) [Volume fraction] 45.6 % Normal 40.0-52.0 [facility] ([place]) Comment on above: Performed By: #### F ES, BMP, HFP, CBC, ANEU, GFR, MG, FERR, ADIFF ####[place] [address] Hgb 15.5 G/dL Normal 13.0-17.5 [facility] ([place]) Comment on above: Performed By: #### F ES, BMP, HFP, CBC, ANEU, GFR, MG, FERR, ADIFF ####[place] [address] MCH (RBC) [Entitic mass] 30.9 pg Normal 27.0-33.0 [facility] ([place]) Comment on above: Performed By: #### F ES, BMP, HFP, CBC, ANEU, GFR, MG, FERR, ADIFF ####[place] [address] MCHC 33.9 G/dL Normal 32.0-36.0 [facility] ([place]) Comment on above: Performed By: #### F ES, BMP, HFP, CBC, ANEU, GFR, MG, FERR, ADIFF ####[place] [address] MCV (RBC) [Entitic vol] 91.3 fL Normal 81.0-100.0 [facility] ([place]) Comment on above: Performed By: #### F ES, BMP, HFP, CBC, ANEU, GFR, MG, FERR, ADIFF ####[place] [address] Platelet 214 10 3/mcL Normal 150-450 [facility] ([place]) Comment on above: Performed By: #### F ES, BMP, HFP, CBC, ANEU, GFR, MG, FERR, ADIFF ####[place] [address] Platelet mean volume (Bld) [Entitic vol] 7.5 fL Normal 6.4-10.5 [facility] ([place]) Comment on above: Performed By: #### F ES, BMP, HFP, CBC, ANEU, GFR, MG, FERR, ADIFF ####[place] [address] RBC 5.00 10 6/mcL Normal 4.50-6.00 [facility] ([place]) Comment on above: Performed By: #### F ES, BMP, HFP, CBC, ANEU, GFR, MG, FERR, ADIFF ####[place] [address] WBC 5.8 10 3/mcL Normal 4.5-10.8 [facility] ([place]) Comment on above: Performed By: #### F ES, BMP, HFP, CBC, ANEU, GFR, MG, FERR, ADIFF ####[place] [address] Zayra 06-02-2023 Ferritin [Mass/Vol] 94.3 ng/mL Normal 26.0-388.0 [facility] ([place]) Comment on above: Performed By: #### F ES, BMP, HFP, CBC, ANEU, GFR, MG, FERR, ADIFF ####[place] [address] FESon 06-02-2023 Iron [Mass/Vol] 82 ug/dL Normal 65-175 [facility] ([place]) Comment on above: Performed By: #### F ES, BMP, HFP, CBC, ANEU, GFR, MG, FERR, ADIFF ####[place] [address] Iron Sat 24 % Normal [facility] ([place]) Comment on above: Performed By: #### F ES, BMP, HFP, CBC, ANEU, GFR, MG, FERR, ADIFF ####[place] [address] TIBC 346 mcg/dL Normal 250-500 [facility] ([place]) Comment on above: Performed By: #### F ES, BMP, HFP, CBC, ANEU, GFR, MG, FERR, ADIFF ####[place] [address] HFPon 06-02-2023 Bili Indirect 0.7 mg/dL Normal 0.1-10.0 [facility] ([place]) Comment on above: Performed By: #### F ES, BMP, HFP, CBC, ANEU, GFR, MG, FERR, ADIFF ####[place] [address] Albumin Level 2.8 G/dL Low 3.2-4.8 [facility] ([place]) Comment on above: Performed By: #### F ES, BMP, HFP, CBC, ANEU, GFR, MG, FERR, ADIFF ####[place] [address] Albumin/Globulin [Mass ratio] 0.8 {ratio} Low 0.9-1.6 [facility] ([place]) Comment on above: Performed By: #### F ES, BMP, HFP, CBC, ANEU, GFR, MG, FERR, ADIFF ####[place] [address] ALP [Catalytic activity/Vol] 95 U/L Normal 38-126 [facility] ([place]) Comment on above: Performed By: #### F ES, BMP, HFP, CBC, ANEU, GFR, MG, FERR, ADIFF ####[place] [address] ALT [Catalytic activity/Vol] 15 U/L Normal 12-55 [facility] ([place]) Comment on above: Performed By: #### F ES, BMP, HFP, CBC, ANEU, GFR, MG, FERR, ADIFF ####[place] [address] AST [Catalytic activity/Vol] 17 U/L Normal 8-34 [facility] ([place]) Comment on above: Performed By: #### F ES, BMP, HFP, CBC, ANEU, GFR, MG, FERR, ADIFF ####[place] [address] Bili Direct 0.7 mg/dL High 0.0-0.4 [facility] ([place]) Comment on above: Result Comment: Use of this assay is not recommended for patients undergoing treatment with eltrombopag due to the potential for falsely elevated results. Performed By: #### F ES, BMP, HFP, CBC, ANEU, GFR, MG, FERR, ADIFF ####[place] [address] Bili Total 1.40 mg/dL High 0.20-1.20 [facility] ([place]) Comment on above: Result Comment: Use of this assay is not recommended for patients undergoing treatment with eltrombopag due to the potential for falsely elevated results. Performed By: #### F ES, BMP, HFP, CBC, ANEU, GFR, MG, FERR, ADIFF ####[place] [address] Globulin 3.3 G/dL Normal 1.5-3.8 [facility] ([place]) Comment on above: Performed By: #### F ES, BMP, HFP, CBC, ANEU, GFR, MG, FERR, ADIFF ####[place] [address] Total Protein 6.1 G/dL Normal 5.7-8.2 [facility] ([place]) Comment on above: Result Comment: No te - New Reference Range in effect 19 Performed By: #### F ES, BMP, HFP, CBC, ANEU, GFR, MG, FERR, ADIFF ####[place] [address] MGon 06-02-2023 Magnesium [Mass/Vol] 2.0 mg/dL Normal 1.6-2.4 [facility] ([place]) Comment on above: Performed By: #### F ES, BMP, HFP, CBC, ANEU, GFR, MG, FERR, ADIFF ####[place] [address] .Auto Diffon 06-01-2023 Basophil, Absolute 0.1 10 3/mcL Normal 0.0-0.3 [facility] ([place]) Comment on above: Performed By: #### H FP, ADIFF, PBNP, CBC, BMP, HEPAC, GFR, ANEU, MG, DRUGS ####[address] [address] Basophils/100 WBC (Bld) 1.1 % Normal 0.0-2.5 [facility] ([place]) Comment on above: Performed By: #### H FP, ADIFF, PBNP, CBC, BMP, HEPAC, GFR, ANEU, MG, DRUGS ####[place] [id number] Eosinophil, Absolute 0.1 10 3/mcL Normal 0.0-0.7 [facility] ([place]) Comment on above: Performed By: #### H FP, ADIFF, PBNP, CBC, BMP, HEPAC, GFR, ANEU, MG, DRUGS ####[address] [address] Eosinophils/100 WBC (Bld) 1.6 % Normal 0.0-6.0 [facility] ([place]) Comment on above: Performed By: #### H FP, ADIFF, PBNP, CBC, BMP, HEPAC, GFR, ANEU, MG, DRUGS ####[address] [address] Lymphocyte, Absolute 1.0 10 3/mcL Normal 0.9-4.3 [facility] ([place]) Comment on above: Performed By: #### H FP, ADIFF, PBNP, CBC, BMP, HEPAC, GFR, ANEU, MG, DRUGS ####[address] [address] Lymphocytes/100 WBC (Bld) 18.2 % Low 20.0-40.0 [facility] ([place]) Comment on above: Performed By: #### H FP, ADIFF, PBNP, CBC, BMP, HEPAC, GFR, ANEU, MG, DRUGS ####[address] [address] Monocyte, Absolute 0.5 10 3/mcL Normal 0.1-1.4 [facility] ([place]) Comment on above: Performed By: #### H FP, ADIFF, PBNP, CBC, BMP, HEPAC, GFR, ANEU, MG, DRUGS ####[address] [address] Monocytes/100 WBC (Bld) 8.8 % Normal 2.0-13.0 [facility] ([place]) Comment on above: Performed By: #### H FP, ADIFF, PBNP, CBC, BMP, HEPAC, GFR, ANEU, MG, DRUGS ####[address] [address] Neutrophils/100 WBC (Bld) 70.3 % Normal 50.0-75.0 [facility] ([place]) Comment on above: Performed By: #### H FP, ADIFF, PBNP, CBC, BMP, HEPAC, GFR, ANEU, MG, DRUGS ####[address] [address] .GFRon 06-01-2023 GFR Non- >60 Normal [facility] ([place]) Comment on above: Result Comment: GFR Population mean for , Non- Americans Ages 20-29 = 116 mL/min/1.73 sq.m. Ages 30-39 = 107 mL/min/1.73 sq.m. Ages 40-49 = 99 mL/min/1.73 sq.m. Ages 50-59 = 93 mL/min/1.73 sq.m. Ages 60-69 = 85 mL/min/1.73 sq.m. Ages 70+ = 75 mL/min/1.73 sq.m.Chronic Kidney Disease: Less than 60 mL/min/1.73 square metersEnd Stage Renal Disease: Less than 15 mL/min/1.73 square meters Performed By: #### H FP, ADIFF, PBNP, CBC, BMP, HEPAC, GFR, ANEU, MG, DRUGS ####[address] [address] GFR >60 Normal [facility] ([place]) Comment on above: Result Comment: GFR Population mean for , Non- Americans Ages 20-29 = 116 mL/min/1.73 sq.m. Ages 30-39 = 107 mL/min/1.73 sq.m. Ages 40-49 = 99 mL/min/1.73 sq.m. Ages 50-59 = 93 mL/min/1.73 sq.m. Ages 60-69 = 85 mL/min/1.73 sq.m. Ages 70+ = 75 mL/min/1.73 sq.m.Chronic Kidney Disease: Less than 60 mL/min/1.73 square metersEnd Stage Renal Disease: Less than 15 mL/min/1.73 square meters Performed By: #### H FP, ADIFF, PBNP, CBC, BMP, HEPAC, GFR, ANEU, MG, DRUGS ####[address] [address] .NEUABSon 06-01-2023 Neutrophil, Absolute 4.0 10 3/mcL Normal 2.3-8.1 [facility] ([place]) Comment on above: Performed By: #### H FP, ADIFF, PBNP, CBC, BMP, HEPAC, GFR, ANEU, MG, DRUGS ####[address] [address] BMPon 06-01-2023 BUN/Creatinine Ratio 12.6 ratio Normal 10.0-22.0 [facility] ([place]) Comment on above: Performed By: #### H FP, ADIFF, PBNP, CBC, BMP, HEPAC, GFR, ANEU, MG, DRUGS ####[address] [address] Calcium [Mass/Vol] 8.7 mg/dL Normal 8.7-10.4 [facility] ([place]) Comment on above: Performed By: #### H FP, ADIFF, PBNP, CBC, BMP, HEPAC, GFR, ANEU, MG, DRUGS ####[address] [address] Chloride [Moles/Vol] 98 mmol/L Normal 98-110 [facility] ([place]) Comment on above: Performed By: #### H FP, ADIFF, PBNP, CBC, BMP, HEPAC, GFR, ANEU, MG, DRUGS ####[place] [address] CO2 [Moles/Vol] 34 mmol/L High 22-32 [facility] ([place]) Comment on above: Performed By: #### H FP, ADIFF, PBNP, CBC, BMP, HEPAC, GFR, ANEU, MG, DRUGS ####[place] [address] Creatinine [Mass/Vol] 1.11 mg/dL Normal 0.60-1.40 [facility] ([place]) Comment on above: Performed By: #### H FP, ADIFF, PBNP, CBC, BMP, HEPAC, GFR, ANEU, MG, DRUGS ####[place] [address] Electrolyte Balance 4.0 mEq/L Normal 4.0-15.0 [facility] ([place]) Comment on above: Performed By: #### H FP, ADIFF, PBNP, CBC, BMP, HEPAC, GFR, ANEU, MG, DRUGS ####[place] [address] Glucose [Mass/Vol] 247 mg/dL High 70-110 [facility] ([place]) Comment on above: Performed By: #### H FP, ADIFF, PBNP, CBC, BMP, HEPAC, GFR, ANEU, MG, DRUGS ####[address] [address] Potassium [Moles/Vol] 4.1 mmol/L Normal 3.5-5.0 [facility] ([place]) Comment on above: Performed By: #### H FP, ADIFF, PBNP, CBC, BMP, HEPAC, GFR, ANEU, MG, DRUGS ####[place] [address] Sodium [Moles/Vol] 136 mmol/L Normal 136-145 [facility] ([place]) Comment on above: Performed By: #### H FP, ADIFF, PBNP, CBC, BMP, HEPAC, GFR, ANEU, MG, DRUGS ####[place] [address] Urea nitrogen [Mass/Vol] 14.0 mg/dL Normal 8.0-22.0 [facility] ([place]) Comment on above: Performed By: #### H FP, ADIFF, PBNP, CBC, BMP, HEPAC, GFR, ANEU, MG, DRUGS ####[place] [address] CBCon 06-01-2023 Erythrocyte distribution width (RBC) [Ratio] 13.9 % Normal 11.5-15.5 [facility] ([place]) Comment on above: Performed By: #### H FP, ADIFF, PBNP, CBC, BMP, HEPAC, GFR, ANEU, MG, DRUGS ####[place] [address] Hematocrit (Bld) [Volume fraction] 44.2 % Normal 40.0-52.0 [facility] ([place]) Comment on above: Performed By: #### H FP, ADIFF, PBNP, CBC, BMP, HEPAC, GFR, ANEU, MG, DRUGS ####[place] [address] Hgb 14.7 G/dL Normal 13.0-17.5 [facility] ([place]) Comment on above: Performed By: #### H FP, ADIFF, PBNP, CBC, BMP, HEPAC, GFR, ANEU, MG, DRUGS ####[place] [id number] [place], [place] [address] MCH (RBC) [Entitic mass] 30.9 pg Normal 27.0-33.0 [facility] ([place]) Comment on above: Performed By: #### H FP, ADIFF, PBNP, CBC, BMP, HEPAC, GFR, ANEU, MG, DRUGS ####[place] [address] MCHC 33.3 G/dL Normal 32.0-36.0 [facility] ([place]) Comment on above: Performed By: #### H FP, ADIFF, PBNP, CBC, BMP, HEPAC, GFR, ANEU, MG, DRUGS ####[place] [address] MCV (RBC) [Entitic vol] 92.6 fL Normal 81.0-100.0 [facility] ([place]) Comment on above: Performed By: #### H FP, ADIFF, PBNP, CBC, BMP, HEPAC, GFR, ANEU, MG, DRUGS ####[place] [address] Platelet 207 10 3/mcL Normal 150-450 [facility] ([place]) Comment on above: Performed By: #### H FP, ADIFF, PBNP, CBC, BMP, HEPAC, GFR, ANEU, MG, DRUGS ####[place] [address] Platelet mean volume (Bld) [Entitic vol] 7.8 fL Normal 6.4-10.5 [facility] ([place]) Comment on above: Performed By: #### H FP, ADIFF, PBNP, CBC, BMP, HEPAC, GFR, ANEU, MG, DRUGS ####[place] [address] RBC 4.78 10 6/mcL Normal 4.50-6.00 [facility] ([place]) Comment on above: Performed By: #### H FP, ADIFF, PBNP, CBC, BMP, HEPAC, GFR, ANEU, MG, DRUGS ####[place] [address] WBC 5.6 10 3/mcL Normal 4.5-10.8 [facility] ([place]) Comment on above: Performed By: #### H FP, ADIFF, PBNP, CBC, BMP, HEPAC, GFR, ANEU, MG, DRUGS ####[place] [address] DRUGSon 06-01-2023 Acetaminophen [Mass/Vol] ug/mL Low 10.0-20.0 [facility] ([place]) Comment on above: Performed By: #### H FP, ADIFF, PBNP, CBC, BMP, HEPAC, GFR, ANEU, MG, DRUGS ####[place] [address] Ethanol Level <10.0 [facility] ([place] Comment on above: Performed By: #### H FP, ADIFF, PBNP, CBC, BMP, HEPAC, GFR, ANEU, MG, DRUGS ####[place] [address] Salicylate Lvl (ds) <3.0 Low 10.0-25.0 [facility] ([place] Comment on above: Performed By: #### H FP, ADIFF, PBNP, CBC, BMP, HEPAC, GFR, ANEU, MG, DRUGS ####[place] [address] Serum Drugs screened: See Below [facility] ([place] Comment on above: Result Comment: This drug screen is a presumptive screening only. No confirmation will be performed unless requested.Drugs included in the ER serum drug screen are: ThresholdEthanol 10.0 mg/dLSalicylate 2.0 mg/dlAcetaminophen 2.0 mcg/mLTesting has been performed FOR MEDICAL PURPOSES ONLY. Performed By: #### H FP, ADIFF, PBNP, CBC, BMP, HEPAC, GFR, ANEU, MG, DRUGS ####[place] [address] HEPACon 06-01-2023 Hep A IgM Ab Int [facility] ([place] Comment on above: Result Comment: No s erological evidence of a current Hepatitis A infection.See Interp Performed By: #### H FP, ADIFF, PBNP, CBC, BMP, HEPAC, GFR, ANEU, MG, DRUGS ####[place] [address] Hep B Core IgM Ab Int Normal [facility] ([place]) Comment on above: Result Comment: Samp les with a value < 0.80 Index are considered nonreactive (negative) for IgM antibodies to hepatitis B core antigen.See Interp Performed By: #### H FP, ADIFF, PBNP, CBC, BMP, HEPAC, GFR, ANEU, MG, DRUGS ####[place] [address] Hep C Ab Non-Reactive Normal Non-Reactive [facility] ([place]) Comment on above: Performed By: #### H FP, ADIFF, PBNP, CBC, BMP, HEPAC, GFR, ANEU, MG, DRUGS ####[place] [address] Hep C Ab Int [facility] ([place]) Comment on above: Result Comment: Nonr eactive: Samples with a value < 0.80 are considered nonreactive (negative) for antibodies to HCV.A negative test result does not exclude the possibility of exposure to or infection with HCV. HCV antibodies may be undetectable in some stages of the infection and in some clinical conditions.See Interp Performed By: #### H FP, ADIFF, PBNP, CBC, BMP, HEPAC, GFR, ANEU, MG, DRUGS ####[place] [address] Hep A IgM Ab Non-Reactive Normal Non-Reactive [facility] ([place]) Comment on above: Performed By: #### H FP, ADIFF, PBNP, CBC, BMP, HEPAC, GFR, ANEU, MG, DRUGS ####[place] [address] Hep B Core IgM Ab Non-Reactive Normal Non-Reactive [facility] ([place]) Comment on above: Performed By: #### H FP, ADIFF, PBNP, CBC, BMP, HEPAC, GFR, ANEU, MG, DRUGS ####[place] [address] Hep B Surf Ag Non-Reactive Normal Non-Reactive [facility] ([place]) Comment on above: Performed By: #### H FP, ADIFF, PBNP, CBC, BMP, HEPAC, GFR, ANEU, MG, DRUGS ####[place] [id number] HFPon 06-01-2023 Bili Indirect 0.7 mg/dL Normal 0.1-10.0 [facility] ([place]) Comment on above: Performed By: #### H FP, ADIFF, PBNP, CBC, BMP, HEPAC, GFR, ANEU, MG, DRUGS ####[place] [address] Albumin Level 2.8 G/dL Low 3.2-4.8 [facility] ([place]) Comment on above: Performed By: #### H FP, ADIFF, PBNP, CBC, BMP, HEPAC, GFR, ANEU, MG, DRUGS ####[place] [address] Albumin/Globulin [Mass ratio] 0.8 {ratio} Low 0.9-1.6 [facility] ([place]) Comment on above: Performed By: #### H FP, ADIFF, PBNP, CBC, BMP, HEPAC, GFR, ANEU, MG, DRUGS ####[place] [address] ALP [Catalytic activity/Vol] 98 U/L Normal 38-126 [facility] ([place]) Comment on above: Performed By: #### H FP, ADIFF, PBNP, CBC, BMP, HEPAC, GFR, ANEU, MG, DRUGS ####[place] [address] ALT [Catalytic activity/Vol] 16 U/L Normal 12-55 [facility] ([place]) Comment on above: Performed By: #### H FP, ADIFF, PBNP, CBC, BMP, HEPAC, GFR, ANEU, MG, DRUGS ####[place] [address] AST [Catalytic activity/Vol] 19 U/L Normal 8-34 [facility] ([place]) Comment on above: Performed By: #### H FP, ADIFF, PBNP, CBC, BMP, HEPAC, GFR, ANEU, MG, DRUGS ####[place] [address] Bili Direct 0.6 mg/dL High 0.0-0.4 [facility] ([place]) Comment on above: Result Comment: Use of this assay is not recommended for patients undergoing treatment with eltrombopag due to the potential for falsely elevated results. Performed By: #### H FP, ADIFF, PBNP, CBC, BMP, HEPAC, GFR, ANEU, MG, DRUGS ####[place] [address] Bili Total 1.30 mg/dL High 0.20-1.20 [facility] ([place]) Comment on above: Result Comment: Use of this assay is not recommended for patients undergoing treatment with eltrombopag due to the potential for falsely elevated results. Performed By: #### H FP, ADIFF, PBNP, CBC, BMP, HEPAC, GFR, ANEU, MG, DRUGS ####[place] [address] Globulin 3.3 G/dL Normal 1.5-3.8 [facility] ([place]) Comment on above: Performed By: #### H FP, ADIFF, PBNP, CBC, BMP, HEPAC, GFR, ANEU, MG, DRUGS ####[place] [address] Total Protein 6.1 G/dL Normal 5.7-8.2 [facility] ([place]) Comment on above: Result Comment: No te - New Reference Range in effect 19 Performed By: #### H FP, ADIFF, PBNP, CBC, BMP, HEPAC, GFR, ANEU, MG, DRUGS ####[place] [address] MGon 06-01-2023 Magnesium [Mass/Vol] 1.8 mg/dL Normal 1.6-2.4 [facility] ([place]) Comment on above: Performed By: #### H FP, ADIFF, PBNP, CBC, BMP, HEPAC, GFR, ANEU, MG, DRUGS ####[place] [address] PBNPon 06-01-2023 Natriuretic peptide B (Bld) [Mass/Vol] 3467 pg/mL High 0-900 [facility] ([place]) Comment on above: Result Comment: NT-p roBNP results of less than 300 pg/mL effectivelyrules out acute congestive heart failure with 99% negative predictive value. Performed By: #### H FP, ADIFF, PBNP, CBC, BMP, HEPAC, GFR, ANEU, MG, DRUGS ####[address] [address] .Auto Diffon 05-31-2023 Basophil, Absolute 0.1 10 3/mcL Normal 0.0-0.3 [facility] ([place]) Comment on above: Performed By: #### M G, BMP, HFP, ANEU, CBC, GFR, ADIFF ####[address] [address] Basophils/100 WBC (Bld) 0.8 % Normal 0.0-2.5 [facility] ([place]) Comment on above: Performed By: #### M G, BMP, HFP, ANEU, CBC, GFR, ADIFF ####[address] [address] Eosinophil, Absolute 0.1 10 3/mcL Normal 0.0-0.7 [facility] ([place]) Comment on above: Performed By: #### M G, BMP, HFP, ANEU, CBC, GFR, ADIFF ####[address] [address] Eosinophils/100 WBC (Bld) 1.2 % Normal 0.0-6.0 [facility] ([place]) Comment on above: Performed By: #### M G, BMP, HFP, ANEU, CBC, GFR, ADIFF ####[address] [address] Lymphocyte, Absolute 1.0 10 3/mcL Normal 0.9-4.3 [facility] ([place]) Comment on above: Performed By: #### M G, BMP, HFP, ANEU, CBC, GFR, ADIFF ####[address] [address] Lymphocytes/100 WBC (Bld) 14.3 % Low 20.0-40.0 [facility] ([place]) Comment on above: Performed By: #### M G, BMP, HFP, ANEU, CBC, GFR, ADIFF ####[address] [address] Monocyte, Absolute 0.6 10 3/mcL Normal 0.1-1.4 [facility] ([place]) Comment on above: Performed By: #### M G, BMP, HFP, ANEU, CBC, GFR, ADIFF ####[address] [address] Monocytes/100 WBC (Bld) 8.3 % Normal 2.0-13.0 [facility] ([place]) Comment on above: Performed By: #### M G, BMP, HFP, ANEU, CBC, GFR, ADIFF ####[address] [address] Neutrophils/100 WBC (Bld) 75.4 % High 50.0-75.0 [facility] ([place]) Comment on above: Performed By: #### M G, BMP, HFP, ANEU, CBC, GFR, ADIFF ####[address] [address] .GFRon 05-31-2023 GFR Non- >60 Normal [facility] ([place]) Comment on above: Result Comment: GFR Population mean for , Non- Americans Ages 20-29 = 116 mL/min/1.73 sq.m. Ages 30-39 = 107 mL/min/1.73 sq.m. Ages 40-49 = 99 mL/min/1.73 sq.m. Ages 50-59 = 93 mL/min/1.73 sq.m. Ages 60-69 = 85 mL/min/1.73 sq.m. Ages 70+ = 75 mL/min/1.73 sq.m.Chronic Kidney Disease: Less than 60 mL/min/1.73 square metersEnd Stage Renal Disease: Less than 15 mL/min/1.73 square meters Performed By: #### M G, BMP, HFP, ANEU, CBC, GFR, ADIFF ####[address] [address] GFR >60 Normal [facility] ([place]) Comment on above: Result Comment: GFR Population mean for , Non- Americans Ages 20-29 = 116 mL/min/1.73 sq.m. Ages 30-39 = 107 mL/min/1.73 sq.m. Ages 40-49 = 99 mL/min/1.73 sq.m. Ages 50-59 = 93 mL/min/1.73 sq.m. Ages 60-69 = 85 mL/min/1.73 sq.m. Ages 70+ = 75 mL/min/1.73 sq.m.Chronic Kidney Disease: Less than 60 mL/min/1.73 square metersEnd Stage Renal Disease: Less than 15 mL/min/1.73 square meters Performed By: #### M G, BMP, HFP, ANEU, CBC, GFR, ADIFF ####[address] [address] .NEUABSon 05-31-2023 Neutrophil, Absolute 5.1 10 3/mcL Normal 2.3-8.1 [facility] ([place]) Comment on above: Performed By: #### M G, BMP, HFP, ANEU, CBC, GFR, ADIFF ####[address] [address] BMPon 05-31-2023 BUN/Creatinine Ratio 17.0 ratio Normal 10.0-22.0 [facility] ([place]) Comment on above: Performed By: #### M G, BMP, HFP, ANEU, CBC, GFR, ADIFF ####[address] [address] Calcium [Mass/Vol] 8.6 mg/dL Low 8.7-10.4 [facility] ([place]) Comment on above: Performed By: #### M G, BMP, HFP, ANEU, CBC, GFR, ADIFF ####[address] [address] Chloride [Moles/Vol] 98 mmol/L Normal 98-110 [facility] ([place]) Comment on above: Performed By: #### M G, BMP, HFP, ANEU, CBC, GFR, ADIFF ####[address] [address] CO2 [Moles/Vol] 31 mmol/L Normal 22-32 [facility] ([place]) Comment on above: Performed By: #### M G, BMP, HFP, ANEU, CBC, GFR, ADIFF ####[address] [address] Creatinine [Mass/Vol] 0.94 mg/dL Normal 0.60-1.40 [facility] ([place]) Comment on above: Performed By: #### M G, BMP, HFP, ANEU, CBC, GFR, ADIFF ####[place] [address] Electrolyte Balance 5.0 mEq/L Normal 4.0-15.0 [facility] ([place]) Comment on above: Performed By: #### M G, BMP, HFP, ANEU, CBC, GFR, ADIFF ####[place] [address] Glucose [Mass/Vol] 213 mg/dL High 70-110 [facility] ([place]) Comment on above: Performed By: #### M G, BMP, HFP, ANEU, CBC, GFR, ADIFF ####[address] [address] Potassium [Moles/Vol] 3.8 mmol/L Normal 3.5-5.0 [facility] ([place]) Comment on above: Performed By: #### M G, BMP, HFP, ANEU, CBC, GFR, ADIFF ####[address] [address] Sodium [Moles/Vol] 134 mmol/L Low 136-145 [facility] ([place]) Comment on above: Performed By: #### M G, BMP, HFP, ANEU, CBC, GFR, ADIFF ####[address] [address] Urea nitrogen [Mass/Vol] 16.0 mg/dL Normal 8.0-22.0 [facility] ([place]) Comment on above: Performed By: #### M G, BMP, HFP, ANEU, CBC, GFR, ADIFF ####[address] [address] CBCon 05-31-2023 Erythrocyte distribution width (RBC) [Ratio] 13.5 % Normal 11.5-15.5 [facility] ([place]) Comment on above: Performed By: #### M G, BMP, HFP, ANEU, CBC, GFR, ADIFF ####[place] [address] Hematocrit (Bld) [Volume fraction] 43.3 % Normal 40.0-52.0 [facility] ([place]) Comment on above: Performed By: #### M G, BMP, HFP, ANEU, CBC, GFR, ADIFF ####[place] [address] Hgb 14.3 G/dL Normal 13.0-17.5 [facility] ([place]) Comment on above: Performed By: #### M G, BMP, HFP, ANEU, CBC, GFR, ADIFF ####[place] [address] MCH (RBC) [Entitic mass] 30.3 pg Normal 27.0-33.0 [facility] ([place] Comment on above: Performed By: #### M G, BMP, HFP, ANEU, CBC, GFR, ADIFF ####[place] [address] MCHC 33.0 G/dL Normal 32.0-36.0 [facility] ([place]) Comment on above: Performed By: #### M G, BMP, HFP, ANEU, CBC, GFR, ADIFF ####[place] [address] MCV (RBC) [Entitic vol] 91.8 fL Normal 81.0-100.0 [facility] ([place]) Comment on above: Performed By: #### M G, BMP, HFP, ANEU, CBC, GFR, ADIFF ####[place] [address] Platelet 208 10 3/mcL Normal 150-450 [facility] ([place]) Comment on above: Performed By: #### M G, BMP, HFP, ANEU, CBC, GFR, ADIFF ####[place] [address] Platelet mean volume (Bld) [Entitic vol] 7.8 fL Normal 6.4-10.5 [facility] ([place]) Comment on above: Performed By: #### M G, BMP, HFP, ANEU, CBC, GFR, ADIFF ####[place] [address] RBC 4.71 10 6/mcL Normal 4.50-6.00 [facility] ([place]) Comment on above: Performed By: #### M G, BMP, HFP, ANEU, CBC, GFR, ADIFF ####[place] [address] WBC 6.8 10 3/mcL Normal 4.5-10.8 [facility] ([place]) Comment on above: Performed By: #### M G, BMP, HFP, ANEU, CBC, GFR, ADIFF ####[place] [address] DRUGUon 05-31-2023 Amphetamine (u) Negative Normal Negative [facility] ([place]) Comment on above: Performed By: #### Lawrence RUGU ####[place] [address] Barbiturate (u) Negative Normal Negative [facility] ([place]) Comment on above: Performed By: #### Lawrence RUGU ####[place] [address] Benzodiazepine (u) Negative Normal Negative [facility] ([place]) Comment on above: Performed By: #### Lawrence RUGU ####[place] [address] Cannabinoid (u) Negative Normal Negative [facility] ([place]) Comment on above: Performed By: #### Lawrence RUGU ####[place] [address] Cocaine Ql (U) Negative Normal Negative [facility] ([place]) Comment on above: Performed By: #### Lawrence RUGU ####[place] [address] Fentanyl (u) Negative Normal Negative [facility] ([place]) Comment on above: Result Comment: Test ing has been performed FOR MEDICAL PURPOSES ONLY. Performed By: #### D RUGU ####[address] [address] Methadone Ql (U) Negative Normal Negative [facility] ([place]) Comment on above: Performed By: #### D RUGU ####[address] [address] Opiate (u) Negative Normal Negative [facility] ([place]) Comment on above: Performed By: #### Lawrence SLADEU ####[place] [address] Oxycodone (u) Negative Normal Negative [facility] ([place]) Comment on above: Result Comment: Test ing has been performed FOR MEDICAL PURPOSES ONLY. Performed By: #### Lawrence MONK ####[place] [address] PCP (u) Negative Normal Negative [facility] ([place]) Comment on above: Performed By: #### Lawrence SLADEU ####[place] [address] Propoxyphene (u) Negative Normal Negative [facility] ([place]) Comment on above: Performed By: #### Lawrence SLADEU ####[address] [address] U pH Drug Scrn 7.0 Normal 5.0-8.0 [facility] ([place]) Comment on above: Performed By: #### Lawrence MONK ####[place] [address] Urine Drugs screened: See Below Normal [facility] ([place]) Comment on above: Result Comment: This drug screen is a presumptive screening only.No confirmation will be performed unless requested.Drugs screened include: ThresholdAmphetamines/Methamphetamines 1,000 ng/mLBarbiturates 200 ng/mLBenzodiazepine metabolites 200 ng/mLCannabinoids (THC metabolites) 50 ng/mLBenzoylecognine (Cocaine metab) 300 ng/mLOpiates 300 ng/mLPhencyclidine (PCP) 25 ng/mLMethadone 300 ng/mLPropoxyphene 300 ng/mLFentanyl 1.0 ng/mLOxycodone 100 ng/mLTesting has been performed FOR MEDICAL PURPOSES ONLY. Performed By: #### Lawrence SLADEU ####[address] [address] HFPon 05-31-2023 Bili Indirect 0.7 mg/dL Normal 0.1-10.0 [facility] ([place]) Comment on above: Performed By: #### M G, BMP, HFP, ANEU, CBC, GFR, ADIFF ####[place] [address] Albumin Level 2.7 G/dL Low 3.2-4.8 [facility] ([place]) Comment on above: Performed By: #### M G, BMP, HFP, ANEU, CBC, GFR, ADIFF ####[place] [address] Albumin/Globulin [Mass ratio] 0.8 {ratio} Low 0.9-1.6 [facility] ([place]) Comment on above: Performed By: #### M G, BMP, HFP, ANEU, CBC, GFR, ADIFF ####[place] [address] ALP [Catalytic activity/Vol] 92 U/L Normal 38-126 [facility] ([place]) Comment on above: Performed By: #### M G, BMP, HFP, ANEU, CBC, GFR, ADIFF ####[place] [address] ALT [Catalytic activity/Vol] 15 U/L Normal 12-55 [facility] ([place]) Comment on above: Performed By: #### M G, BMP, HFP, ANEU, CBC, GFR, ADIFF ####[place] [id number] AST [Catalytic activity/Vol] 17 U/L Normal 8-34 [facility] ([place]) Comment on above: Performed By: #### M G, BMP, HFP, ANEU, CBC, GFR, ADIFF ####[place] [address] Bili Direct 0.6 mg/dL High 0.0-0.4 [facility] ([place]) Comment on above: Result Comment: Use of this assay is not recommended for patients undergoing treatment with eltrombopag due to the potential for falsely elevated results. Performed By: #### M G, BMP, HFP, ANEU, CBC, GFR, ADIFF ####[place] [address] Bili Total 1.30 mg/dL High 0.20-1.20 [facility] ([place]) Comment on above: Result Comment: Use of this assay is not recommended for patients undergoing treatment with eltrombopag due to the potential for falsely elevated results. Performed By: #### M G, BMP, HFP, ANEU, CBC, GFR, ADIFF ####[address] [address] Globulin 3.2 G/dL Normal 1.5-3.8 [facility] ([place]) Comment on above: Performed By: #### M G, BMP, HFP, ANEU, CBC, GFR, ADIFF ####[place] [address] Total Protein 5.9 G/dL Normal 5.7-8.2 [facility] ([place]) Comment on above: Result Comment: No te - New Reference Range in effect 19 Performed By: #### M G, BMP, HFP, ANEU, CBC, GFR, ADIFF ####[place] [address] MGon 05-31-2023 Magnesium [Mass/Vol] 2.2 mg/dL Normal 1.6-2.4 [facility] ([place]) Comment on above: Performed By: #### M G, BMP, HFP, ANEU, CBC, GFR, ADIFF ####[place] [address] XR CHEST 1 VIEWon 05-31-2023 XR CHEST 1 VIEW Normal [facility] ([place]) .Auto Diffon 05-30-2023 Basophil, Absolute 0.0 10 3/mcL Normal 0.0-0.3 [facility] ([place]) Comment on above: Performed By: #### A YANELY, CBC, GFR, MG, HFP, ADIFF, BMP ####[place] [address] Basophils/100 WBC (Bld) 0.8 % Normal 0.0-2.5 [facility] ([place]) Comment on above: Performed By: #### A YANELY, CBC, GFR, MG, HFP, ADIFF, BMP ####[address] [address] Eosinophil, Absolute 0.1 10 3/mcL Normal 0.0-0.7 [facility] ([place]) Comment on above: Performed By: #### A YANELY, CBC, GFR, MG, HFP, ADIFF, BMP ####[address] [address] Eosinophils/100 WBC (Bld) 1.4 % Normal 0.0-6.0 [facility] ([place]) Comment on above: Performed By: #### A YANELY, CBC, GFR, MG, HFP, ADIFF, BMP ####[address] [address] Lymphocyte, Absolute 0.9 10 3/mcL Normal 0.9-4.3 [facility] ([place]) Comment on above: Performed By: #### A YANELY, CBC, GFR, MG, HFP, ADIFF, BMP ####[address] [address] Lymphocytes/100 WBC (Bld) 16.2 % Low 20.0-40.0 [facility] ([place]) Comment on above: Performed By: #### A YANELY, CBC, GFR, MG, HFP, ADIFF, BMP ####[address] [address] Monocyte, Absolute 0.5 10 3/mcL Normal 0.1-1.4 [facility] ([place]) Comment on above: Performed By: #### A YANELY, CBC, GFR, MG, HFP, ADIFF, BMP ####[address] [address] Monocytes/100 WBC (Bld) 8.5 % Normal 2.0-13.0 [facility] ([place]) Comment on above: Performed By: #### A YANELY, CBC, GFR, MG, HFP, ADIFF, BMP ####[address] [address] Neutrophils/100 WBC (Bld) 73.1 % Normal 50.0-75.0 [facility] ([place]) Comment on above: Performed By: #### A YANELY, CBC, GFR, MG, HFP, ADIFF, BMP ####[address] [address] .GFRon 05-30-2023 GFR >60 Normal [facility] ([place]) Comment on above: Result Comment: GFR Population mean for , Non- Americans Ages 20-29 = 116 mL/min/1.73 sq.m. Ages 30-39 = 107 mL/min/1.73 sq.m. Ages 40-49 = 99 mL/min/1.73 sq.m. Ages 50-59 = 93 mL/min/1.73 sq.m. Ages 60-69 = 85 mL/min/1.73 sq.m. Ages 70+ = 75 mL/min/1.73 sq.m.Chronic Kidney Disease: Less than 60 mL/min/1.73 square metersEnd Stage Renal Disease: Less than 15 mL/min/1.73 square meters Performed By: #### B MP, MG, GFR ####[address] [address] GFR Non- >60 Normal [facility] ([place]) Comment on above: Result Comment: GFR Population mean for , Non- Americans Ages 20-29 = 116 mL/min/1.73 sq.m. Ages 30-39 = 107 mL/min/1.73 sq.m. Ages 40-49 = 99 mL/min/1.73 sq.m. Ages 50-59 = 93 mL/min/1.73 sq.m. Ages 60-69 = 85 mL/min/1.73 sq.m. Ages 70+ = 75 mL/min/1.73 sq.m.Chronic Kidney Disease: Less than 60 mL/min/1.73 square metersEnd Stage Renal Disease: Less than 15 mL/min/1.73 square meters Performed By: #### B MP, MG, GFR ####[address] [address] GFR >60 Normal [facility] ([place] Comment on above: Result Comment: GFR Population mean for , Non- Americans Ages 20-29 = 116 mL/min/1.73 sq.m. Ages 30-39 = 107 mL/min/1.73 sq.m. Ages 40-49 = 99 mL/min/1.73 sq.m. Ages 50-59 = 93 mL/min/1.73 sq.m. Ages 60-69 = 85 mL/min/1.73 sq.m. Ages 70+ = 75 mL/min/1.73 sq.m.Chronic Kidney Disease: Less than 60 mL/min/1.73 square metersEnd Stage Renal Disease: Less than 15 mL/min/1.73 square meters Performed By: #### A YANELY, CBC, GFR, MG, HFP, ADIFF, BMP ####[address] [address] GFR Non- >60 Normal [facility] ([place]) Comment on above: Result Comment: GFR Population mean for , Non- Americans Ages 20-29 = 116 mL/min/1.73 sq.m. Ages 30-39 = 107 mL/min/1.73 sq.m. Ages 40-49 = 99 mL/min/1.73 sq.m. Ages 50-59 = 93 mL/min/1.73 sq.m. Ages 60-69 = 85 mL/min/1.73 sq.m. Ages 70+ = 75 mL/min/1.73 sq.m.Chronic Kidney Disease: Less than 60 mL/min/1.73 square metersEnd Stage Renal Disease: Less than 15 mL/min/1.73 square meters Performed By: #### A YANELY, CBC, GFR, MG, HFP, ADIFF, BMP ####[place] [address] .NEUABSon 05-30-2023 Neutrophil, Absolute 4.3 10 3/mcL Normal 2.3-8.1 [facility] ([place]) Comment on above: Performed By: #### A YANELY, CBC, GFR, MG, HFP, ADIFF, BMP ####[address] [address] APTTon 05-30-2023 aPTT Coag (Bld) [Time] 25.9 s Normal 25.0-35.0 [facility] ([place]) Comment on above: Result Comment: For Heparin anticoagulation therapy, the recommendedtherapeutic range is: 54-77 seconds (APTT Correlationwith Anti-Xa therapeutic range of 0.3-0.7 units/ml).PLEASE REFERENCE THE PHARMACY PROTOCOL FOR DOSING. Performed By: #### P RO, LIPID, TROPHS, FT4 ####[address] [address] Heparin dose (APTT) Unknown Normal [facility] ([place]) Comment on above: Performed By: #### P RO, LIPID, TROPHS, FT4 ####[address] [address] BMPon 05-30-2023 BUN/Creatinine Ratio 17.6 ratio Normal 10.0-22.0 [facility] ([place]) Comment on above: Performed By: #### B MP, MG, GFR ####[place] [address] Calcium [Mass/Vol] 8.7 mg/dL Normal 8.7-10.4 [facility] ([place]) Comment on above: Performed By: #### B MP, MG, GFR ####[place] [address] Chloride [Moles/Vol] 98 mmol/L Normal 98-110 [facility] ([place]) Comment on above: Performed By: #### B MP, MG, GFR ####[place] [address] CO2 [Moles/Vol] 30 mmol/L Normal 22-32 [facility] ([place]) Comment on above: Performed By: #### B MP, MG, GFR ####[place] [address] Creatinine [Mass/Vol] 0.91 mg/dL Normal 0.60-1.40 [facility] ([place]) Comment on above: Performed By: #### B MP, MG, GFR ####[place] [address] Electrolyte Balance 6.0 mEq/L Normal 4.0-15.0 [facility] ([place]) Comment on above: Performed By: #### B MP, MG, GFR ####[address] [address] Glucose [Mass/Vol] 255 mg/dL High 70-110 [facility] ([place]) Comment on above: Performed By: #### B MP, MG, GFR ####[address] [address] Potassium [Moles/Vol] 3.8 mmol/L Normal 3.5-5.0 [facility] ([place]) Comment on above: Result Comment: Spec imen slightly hemolyzed. Performed By: #### B MP, MG, GFR ####[address] [address] Sodium [Moles/Vol] 134 mmol/L Low 136-145 [facility] ([place]) Comment on above: Performed By: #### B MP, MG, GFR ####[place] [address] Urea nitrogen [Mass/Vol] 16.0 mg/dL Normal 8.0-22.0 [facility] ([place]) Comment on above: Performed By: #### B MP, MG, GFR ####[place] [address] BUN/Creatinine Ratio 15.7 ratio Normal 10.0-22.0 [facility] ([place] Comment on above: Performed By: #### A YANELY, CBC, GFR, MG, HFP, ADIFF, BMP ####[address] [address] Calcium [Mass/Vol] 8.8 mg/dL Normal 8.7-10.4 [facility] ([place]) Comment on above: Performed By: #### A YANELY, CBC, GFR, MG, HFP, ADIFF, BMP ####[address] [address] Chloride [Moles/Vol] 101 mmol/L Normal 98-110 [facility] ([place] Comment on above: Performed By: #### A YANELY, CBC, GFR, MG, HFP, ADIFF, BMP ####[address] [address] CO2 [Moles/Vol] 31 mmol/L Normal 22-32 [facility] ([place]) Comment on above: Performed By: #### A YANELY, CBC, GFR, MG, HFP, ADIFF, BMP ####[place] [address] Creatinine [Mass/Vol] 1.15 mg/dL Normal 0.60-1.40 [facility] ([place]) Comment on above: Performed By: #### A YANELY, CBC, GFR, MG, HFP, ADIFF, BMP ####[place] [address] Electrolyte Balance 5.0 mEq/L Normal 4.0-15.0 [facility] ([place]) Comment on above: Performed By: #### A YANELY, CBC, GFR, MG, HFP, ADIFF, BMP ####[place] [address] Glucose [Mass/Vol] 137 mg/dL High 70-110 [facility] ([place]) Comment on above: Performed By: #### A YANELY, CBC, GFR, MG, HFP, ADIFF, BMP ####[place] [address] Potassium [Moles/Vol] 4.1 mmol/L Normal 3.5-5.0 [facility] ([place]) Comment on above: Performed By: #### A YANELY, CBC, GFR, MG, HFP, ADIFF, BMP ####[place] [address] Sodium [Moles/Vol] 137 mmol/L Normal 136-145 [facility] ([place]) Comment on above: Performed By: #### A YANELY, CBC, GFR, MG, HFP, ADIFF, BMP ####[place] [address] Urea nitrogen [Mass/Vol] 18.0 mg/dL Normal 8.0-22.0 [facility] ([place]) Comment on above: Performed By: #### A YANELY, CBC, GFR, MG, HFP, ADIFF, BMP ####[place] [address] CBCon 05-30-2023 Erythrocyte distribution width (RBC) [Ratio] 13.4 % Normal 11.5-15.5 [facility] ([place]) Comment on above: Performed By: #### A YANELY, CBC, GFR, MG, HFP, ADIFF, BMP ####[place] [address] Hematocrit (Bld) [Volume fraction] 43.3 % Normal 40.0-52.0 [facility] ([place]) Comment on above: Performed By: #### A YANELY, CBC, GFR, MG, HFP, ADIFF, BMP ####[place] [address] Hgb 14.4 G/dL Normal 13.0-17.5 [facility] ([place]) Comment on above: Performed By: #### A YANELY, CBC, GFR, MG, HFP, ADIFF, BMP ####[place] [address] MCH (RBC) [Entitic mass] 30.8 pg Normal 27.0-33.0 [facility] ([place]) Comment on above: Performed By: #### A YANELY, CBC, GFR, MG, HFP, ADIFF, BMP ####[place] [address] MCHC 33.2 G/dL Normal 32.0-36.0 [facility] ([place]) Comment on above: Performed By: #### A YANELY, CBC, GFR, MG, HFP, ADIFF, BMP ####[place] [address] MCV (RBC) [Entitic vol] 92.6 fL Normal 81.0-100.0 [facility] ([place]) Comment on above: Performed By: #### A YANELY, CBC, GFR, MG, HFP, ADIFF, BMP ####[place] [address] Platelet 166 10 3/mcL Normal 150-450 [facility] ([place]) Comment on above: Performed By: #### A YANELY, CBC, GFR, MG, HFP, ADIFF, BMP ####[place] [address] Platelet mean volume (Bld) [Entitic vol] 7.9 fL Normal 6.4-10.5 [facility] ([place]) Comment on above: Performed By: #### A YANELY, CBC, GFR, MG, HFP, ADIFF, BMP ####[place] [address] RBC 4.68 10 6/mcL Normal 4.50-6.00 [facility] ([place]) Comment on above: Performed By: #### A YANELY, CBC, GFR, MG, HFP, ADIFF, BMP ####[place] [address] WBC 5.8 10 3/mcL Normal 4.5-10.8 [facility] ([place]) Comment on above: Performed By: #### A YANELY, CBC, GFR, MG, HFP, ADIFF, BMP ####[place] [address] FT4on 05-30-2023 Free T4 [Mass/Vol] 0.91 ng/dL Normal 0.89-1.76 [facility] ([place]) Comment on above: Result Comment: No te - New Reference Range in effect 19 Performed By: #### P RO, LIPID, TROPHS, FT4 ####[place] [address] HFPon 05-30-2023 Bili Indirect 0.7 mg/dL Normal 0.1-10.0 [facility] ([place]) Comment on above: Performed By: #### A YANELY, CBC, GFR, MG, HFP, ADIFF, BMP ####[place] [address] Albumin Level 2.7 G/dL Low 3.2-4.8 [facility] ([place]) Comment on above: Performed By: #### A YANELY, CBC, GFR, MG, HFP, ADIFF, BMP ####[place] [address] Albumin/Globulin [Mass ratio] 0.8 {ratio} Low 0.9-1.6 [facility] ([place]) Comment on above: Performed By: #### A YANELY, CBC, GFR, MG, HFP, ADIFF, BMP ####[place] [address] ALP [Catalytic activity/Vol] 89 U/L Normal 38-126 [facility] ([place]) Comment on above: Performed By: #### A YANELY, CBC, GFR, MG, HFP, ADIFF, BMP ####[place] [address] ALT [Catalytic activity/Vol] 15 U/L Normal 12-55 [facility] ([place]) Comment on above: Performed By: #### A YANELY, CBC, GFR, MG, HFP, ADIFF, BMP ####[place] [address] AST [Catalytic activity/Vol] 17 U/L Normal 8-34 [facility] ([place]) Comment on above: Performed By: #### A YANELY, CBC, GFR, MG, HFP, ADIFF, BMP ####[place] [address] Bili Direct 0.6 mg/dL High 0.0-0.4 [facility] ([place]) Comment on above: Result Comment: Use of this assay is not recommended for patients undergoing treatment with eltrombopag due to the potential for falsely elevated results. Performed By: #### A YANELY, CBC, GFR, MG, HFP, ADIFF, BMP ####[place] [address] Bili Total 1.30 mg/dL High 0.20-1.20 [facility] ([place]) Comment on above: Result Comment: Use of this assay is not recommended for patients undergoing treatment with eltrombopag due to the potential for falsely elevated results. Performed By: #### A YANELY, CBC, GFR, MG, HFP, ADIFF, BMP ####[place] [address] Globulin 3.3 G/dL Normal 1.5-3.8 [facility] ([place]) Comment on above: Performed By: #### A YANELY, CBC, GFR, MG, HFP, ADIFF, BMP ####[place] [address] Total Protein 6.0 G/dL Normal 5.7-8.2 [facility] ([place]) Comment on above: Result Comment: No te - New Reference Range in effect 19 Performed By: #### A YANELY, CBC, GFR, MG, HFP, ADIFF, BMP ####[address] [address] LIPIDon 05-30-2023 Cholesterol [Mass/Vol] 111 mg/dL Normal 50-199 [facility] ([place]) Comment on above: Result Comment: Chol esterol Reference Interval:Less than 200 [id number] Borderline high [id number] and above High risk Performed By: #### P RO, LIPID, TROPHS, FT4 ####[address] [address] Cholesterol in HDL [Mass/Vol] 29 mg/dL Low 40-59 [facility] ([place]) Comment on above: Performed By: #### P RO, LIPID, TROPHS, FT4 ####[address] [address] Cholesterol in LDL [Mass/Vol] 69 mg/dL Normal 0-129 [facility] ([place]) Comment on above: Performed By: #### P RO, LIPID, TROPHS, FT4 ####[address] [address] Triglyceride [Mass/Vol] 67 mg/dL Normal 3-149 [facility] ([place]) Comment on above: Performed By: #### P RO, LIPID, TROPHS, FT4 ####[address] [address] MGon 05-30-2023 Magnesium [Mass/Vol] 1.7 mg/dL Normal 1.6-2.4 [facility] ([place]) Comment on above: Performed By: #### B MP, MG, GFR ####[address] [address] Magnesium [Mass/Vol] 2.1 mg/dL Normal 1.6-2.4 [facility] ([place]) Comment on above: Performed By: #### A YANELY, CBC, GFR, MG, HFP, ADIFF, BMP ####[place] [address] PROon 05-30-2023 INR Coag (PPP) [Relative time] 1.2 {INR} Normal [facility] ([place]) Comment on above: Result Comment: [employer] (CHEST, 1992, [id number])recommended therapeutic range for oral anticoagulant therapy is:LOW RISK: Prophylaxis of venous thrombosis INR: 2.0-3.0 Treatment of pulmonary embolism 2.0-3.0 Prevention of systemic embolism 2.0-3.0HIGH RISK: Mechanical prosthetic valves 2.5-3.5 Performed By: #### P RO, LIPID, TROPHS, FT4 ####[place] [address] PT Coag (PPP) [Time] 13.6 s Normal 9.0-14.2 [facility] ([place]) Comment on above: Result Comment: Effe ctive 10/20/07, Protime results may be affected by some antibiotics (i.e. Ciprofloxacin, Azithromycin, Bactrim) which may potentiate the action of oral anticoagulants, with further increases in Protime/INR. Performed By: #### P RO, LIPID, TROPHS, FT4 ####[place] [address] TROPHSon 05-30-2023 Troponin I High Sensitivity 39.72 ng/L Normal 0.00-54.00 [facility] ([place]) Comment on above: Performed By: #### P RO, LIPID, TROPHS, FT4 ####[place] [address] UAon 05-30-2023 Color (U) Yellow Normal [facility] ([place]) Comment on above: Performed By: #### U A ####[place] [address] Glucose (U) [Mass/Vol] Negative Normal Negative [facility] ([place]) Comment on above: Performed By: #### U A ####[place] [address] Ketones Ql (U) Negative Normal Neg-Trace [facility] ([place]) Comment on above: Performed By: #### U A ####[address] [address] UA Appear Clear Normal Clear [facility] ([place]) Comment on above: Performed By: #### U A ####[address] [address] UA Blood Trace Normal Neg-Trace [facility] ([place]) Comment on above: Performed By: #### U A ####[address] [address] UA Leuk Est Negative Normal Negative [facility] ([place]) Comment on above: Performed By: #### U A ####[address] [address] UA Nitrite Negative Normal Negative [facility] ([place]) Comment on above: Performed By: #### U A ####[place] [address] UA pH 6.0 Normal 5.0 - 8.0 [facility] ([place]) Comment on above: Performed By: #### U A ####[address] [address] UA Protein 30 mg/dL Normal Negative [facility] ([place]) Comment on above: Performed By: #### U A ####[address] [address] UA Spec Grav 1.010 Normal 1.006-1.029 [facility] ([place]) Comment on above: Performed By: #### U A ####[address] [address] UA Specimen Type Void Normal [facility] ([place]) Comment on above: Performed By: #### U A ####[address] [address] UA Urobilinogen 0.2 E.U./dL Normal 0.2-1.0 [facility] ([place]) Comment on above: Performed By: #### U A ####[place] [address] Urobilinogen (U) [Mass/Vol] Negative Normal Neg-Trace [facility] ([place]) Comment on above: Performed By: #### U A ####[place] [address] .GFRon 05-29-2023 GFR Non- 59 ml/min/1.73sqm Normal [facility] ([place]) Comment on above: Result Comment: GFR Population mean for , Non- Americans Ages 20-29 = 116 mL/min/1.73 sq.m. Ages 30-39 = 107 mL/min/1.73 sq.m. Ages 40-49 = 99 mL/min/1.73 sq.m. Ages 50-59 = 93 mL/min/1.73 sq.m. Ages 60-69 = 85 mL/min/1.73 sq.m. Ages 70+ = 75 mL/min/1.73 sq.m.Chronic Kidney Disease: Less than 60 mL/min/1.73 square metersEnd Stage Renal Disease: Less than 15 mL/min/1.73 square meters Performed By: #### B MP, GFR, TROPHS, MG ####[place] [address] [place], [place] [address] GFR 72 ml/min/1.73sqm Normal [facility] ([place]) Comment on above: Result Comment: GFR Population mean for , Non- Americans Ages 20-29 = 116 mL/min/1.73 sq.m. Ages 30-39 = 107 mL/min/1.73 sq.m. Ages 40-49 = 99 mL/min/1.73 sq.m. Ages 50-59 = 93 mL/min/1.73 sq.m. Ages 60-69 = 85 mL/min/1.73 sq.m. Ages 70+ = 75 mL/min/1.73 sq.m.Chronic Kidney Disease: Less than 60 mL/min/1.73 square metersEnd Stage Renal Disease: Less than 15 mL/min/1.73 square meters Performed By: #### B MP, GFR, TROPHS, MG ####[place] [address] [place], [place] [address] .Urinalysis Microscopic (AO) on 05-29-2023 UA Mucous Trace Normal [facility] ([place]) Comment on above: Performed By: #### U AMICAO, UA ####[place] [address] [place], [place] [address] UA RBC 10-15 Abnormal None Seen [facility] ([place]) Comment on above: Performed By: #### U AMICAO, UA ####[place] [address] [place], [place] [address] UA Squam Epithelial None Seen Normal None Seen [facility] ([place] Comment on above: Performed By: #### U AMICAO, UA ####[place] [address] [place], [place] [address] UA WBC None Seen Normal None Seen [facility] ([place]) Comment on above: Performed By: #### U AMICAO, UA ####[place] [address] [place], [place] [address] A1Con 05-29-2023 HbA1c (Bld) [Mass fraction] 10.6 % High 4.3-6.4 [facility] ([place]) Comment on above: Performed By: #### T SH, LIPID, A1C ####[place] [address] [place], [place] [address] BMPon 05-29-2023 BUN/Creatinine Ratio 12 ratio Normal 7-27 [facility] ([place]) Comment on above: Performed By: #### B MP, GFR, TROPHS, MG ####[place] [address] [place], [place] [address] Calcium [Mass/Vol] 8.4 mg/dL Normal 8.4-10.2 [facility] ([place]) Comment on above: Performed By: #### B MP, GFR, TROPHS, MG ####[place] [address] [place], [place] [address] Chloride [Moles/Vol] 99 mmol/L Normal 98-107 [facility] ([place]) Comment on above: Performed By: #### B MP, GFR, TROPHS, MG ####[place] [address] [place], [place] [address] CO2 [Moles/Vol] 29 mmol/L Normal 22-29 [facility] ([place]) Comment on above: Performed By: #### B MP, GFR, TROPHS, MG ####[place] [address] [place], [place] [address] Creatinine [Mass/Vol] 1.26 mg/dL Normal 0.70-1.30 [facility] ([place]) Comment on above: Performed By: #### B MP, GFR, TROPHS, MG ####[place] [address] [place], [place] [address] Electrolyte Balance 7.0 mEq/L Normal 4.0-15.0 [facility] ([place]) Comment on above: Performed By: #### B MP, GFR, TROPHS, MG ####[place] [address] [place], [place] [address] Glucose [Mass/Vol] 198 mg/dL High 70-105 [facility] ([place]) Comment on above: Performed By: #### B MP, GFR, TROPHS, MG ####[place] [address] [place], [place] [address] Potassium [Moles/Vol] 4.7 mmol/L Normal 3.5-5.1 [facility] ([place]) Comment on above: Performed By: #### B MP, GFR, TROPHS, MG ####[place] [address] [place], [place] [address] Sodium [Moles/Vol] 135 mmol/L Low 136-145 [facility] ([place]) Comment on above: Performed By: #### B MP, GFR, TROPHS, MG ####[place] [address] [place], [place] [address] Urea nitrogen [Mass/Vol] 15 mg/dL Normal 7-18 [facility] ([place]) Comment on above: Performed By: #### B MP, GFR, TROPHS, MG ####[place] [address] [place], [place] [address] LABORATORYOrdered By: Deb Lovell on 05-29-2023 Blood Glucose Testing Reason Routine (05/29/23 9:07 PM) [facility] Work Phone: Glucose [Mass/Vol] 194 mg/dL High 70 - 110 mg/dL [facility] Work Phone: LABORATORYOrdered By: Karthik Whitfield on 05-29-2023 Blood Glucose Testing Reason Routine (05/29/23 4:26 PM) [facility] Work Phone: Glucose [Mass/Vol] 188 mg/dL High 70 - 110 mg/dL [facility] Work Phone: LABORATORYOrdered By: Darrion Park on 05-29-2023 Blood Glucose Testing Reason Routine (05/29/23 11:59 AM) [facility] Work Phone: Glucose [Mass/Vol] 266 mg/dL High 70 - 110 mg/dL [facility] Work Phone: LABORATORYOrdered By: Roderick Valencia on 05-29-2023 Appearance (U) Clear (05/29/23 11:41 AM) Normal Clear AO Auto Urine SS Bilirubin Ql (U) Negative (05/29/23 11:41 AM) Normal Negative AO Auto Urine SS Color (U) Yellow (05/29/23 11:41 AM) Normal AO Auto Urine SS Glucose Test strip (U) [Mass/Vol] Negative Normal Negative AO Auto Urine SS Hemoglobin Auto test strip (U) [Mass/Vol] Moderate *ABN* (05/29/23 11:41 AM) Invalid Interpretation Code Negative AO Auto Urine SS Ketones Ql (U) Negative Normal Negative AO Auto Urine SS UA Leuk Est Negative (05/29/23 11:41 AM) Normal Negative AO Auto Urine SS UA Mucous Trace /HPF Normal AO Auto Urine SS UA Nitrite Negative (05/29/23 11:41 AM) Normal Negative AO Auto Urine SS UA pH 7.0 (05/29/23 11:41 AM) Normal 5.0 - 8.0 AO Auto Urine SS UA Protein 100 mg/dL Invalid Interpretation Code Negative AO Auto Urine SS UA RBC 10-15 /HPF Invalid Interpretation Code None Seen AO Auto Urine SS UA Spec Grav 1.025 (05/29/23 11:41 AM) Normal 1.015-1.025 AO Auto Urine SS UA Specimen Type Clean Catch (05/29/23 11:41 AM) Normal AO Auto Urine SS UA Squam Epithelial None Seen /HPF Normal None Seen A O Auto Urine SS UA Urobilinogen 0.2 E.U./dL Normal 0.2-1.0 AO Auto Urine SS WBC LM.HPF (Urine sed) [#/Area] None Seen /HPF Normal None Seen AO Auto Urine SS LABORATORYOrdered By: SYSTEM SYSTEM on 05-29-2023 Calcium [Mass/Vol] 8.4 mg/dL Normal 8.4 - 10. 2 mg/dL AO ADM SS Chloride [Moles/Vol] 99 mmol/L Normal 98 - 10 7 mmol/L AO ADM SS CO2 [Moles/Vol] 29 mmol/L Normal 22 - 29 mmol/L AO ADM SS Creatinine [Mass/Vol] 1.26 mg/dL Normal 0.70 - 1.30 mg/dL AO ADM SS Electrolyte Balance 7.0 mEq/L Normal 4.0 - 15 .0 mEq/L AO ADM SS GFR/1.73 sq M.predicted among blacks MDRD (S/P/Bld) [Vol rate/Area] 72 ml/min/1.73sqm Invalid Interpretation Code AO Chemistry S Comment on above: Interpretive Data: GFR Population mean for , Non- Americans Ages 20-29 = 116 mL/min/1.73 sq.m. Ages 30-39 = 107 mL/min/1.73 sq.m. Ages 40-49 = 99 mL/min/1.73 sq.m. Ages 50-59 = 93 mL/min/1.73 sq.m. Ages 60-69 = 85 mL/min/1.73 sq.m. Ages 70+ = 75 mL/min/1.73 sq.m. Chronic Kidney Disease: Less than 60 mL/min/1.73 square meters End Stage Renal Disease: Less than 15 mL/min/1.73 square meters GFR/1.73 sq M.predicted among non-blacks MDRD (S/P/Bld) [Vol rate/Area] 59 ml/min/1.73sqm Invalid Interpretation Code AO Chemistry S Comment on above: Interpretive Data: GFR Population mean for , Non- Americans Ages 20-29 = 116 mL/min/1.73 sq.m. Ages 30-39 = 107 mL/min/1.73 sq.m. Ages 40-49 = 99 mL/min/1.73 sq.m. Ages 50-59 = 93 mL/min/1.73 sq.m. Ages 60-69 = 85 mL/min/1.73 sq.m. Ages 70+ = 75 mL/min/1.73 sq.m. Chronic Kidney Disease: Less than 60 mL/min/1.73 square meters End Stage Renal Disease: Less than 15 mL/min/1.73 square meters Glucose [Mass/Vol] 198 mg/dL High 70 - 105 mg/dL AO ADM SS Magnesium [Mass/Vol] 1.5 mg/dL Low 1.8 - 2 .4 mg/dL AO ADM SS Potassium [Moles/Vol] 4.7 mmol/L Normal 3.5 - 5.1 mmol/L AO ADM SS Sodium [Moles/Vol] 135 mmol/L Low 136 - 145 mmol/L AO ADM SS Troponin I.cardiac DL <= 0.01 ng/mL [Mass/Vol] 61.3 ng/L Normal 0.0 - 76.2 ng/L AO ADM SS Urea nitrogen [Mass/Vol] 15 mg/dL Normal 7 - 18 mg/dL AO ADM SS Urea nitrogen/Creatinine [Mass ratio] 12 ratio Normal 7 - 27 ratio AO ADM SS LIPIDon 05-29-2023 Cholesterol [Mass/Vol] 113 mg/dL Normal 0-200 [facility] ([place]) Comment on above: Result Comment: Chol esterol Reference Interval:Less than 200 [id number] Borderline high [id number] and above High risk Performed By: #### T KAM, LIPID, A1C ####[place] [address] [place], [place] [address] Cholesterol in HDL [Mass/Vol] 33 mg/dL Low 40-60 [facility] ([place]) Comment on above: Performed By: #### T KAM, LIPID, A1C ####[place] [address] [place], [place] [address] Cholesterol in LDL [Mass/Vol] 63 mg/dL Normal 0-130 [facility] ([place]) Comment on above: Performed By: #### T KAM, LIPID, A1C ####[place] [address] [place], [place] [address] Triglyceride [Mass/Vol] 86 mg/dL Normal 0-150 [facility] ([place]) Comment on above: Result Comment: Trig lyceride Reference Interval:Less than 150 [id number] Borderline high [id number] High [id number] or higher Very high risk Performed By: #### T SH, LIPID, A1C ####[place] [address] [place], [place] [address] MGon 05-29-2023 Magnesium [Mass/Vol] 1.5 mg/dL Low 1.8-2.4 [facility] ([place]) Comment on above: Performed By: #### B MP, GFR, TROPHS, MG ####[place] [address] [place], [place] [address] TROPHSon 05-29-2023 Troponin I High Sensitivity 61.3 ng/L Normal 0.0-76.2 [facility] ([place]) Comment on above: Performed By: #### B MP, GFR, TROPHS, MG ####[place] [address] [place], [place] [address] TSHon 05-29-2023 TSH Qn 3.78 m[IU]/L High 0.36-3.74 [facility] ([place]) Comment on above: Performed By: #### T SH, LIPID, A1C ####[place] [address] [place], [place] [address] UAon 05-29-2023 Color (U) Yellow Normal [facility] ([place]) Comment on above: Performed By: #### U AMICAO, UA ####[place] [address] [place], [place] [address] Glucose (U) [Mass/Vol] Negative Normal Negative [facility] ([place]) Comment on above: Performed By: #### U AMICAO, UA ####[place] [address] [place], [place] [address] Ketones Ql (U) Negative Normal Negative [facility] ([place]) Comment on above: Performed By: #### U AMICAO, UA ####[place] [address] [place], [place] [address] UA Appear Clear Normal Clear [facility] ([place]) Comment on above: Performed By: #### U AMICAO, UA ####[place] [address] [place], [place] [address] UA Blood Moderate Abnormal Negative [facility] ([place]) Comment on above: Performed By: #### U AMICAO, UA ####[place] [address] [place], [place] [address] UA Leuk Est Negative Normal Negative [facility] ([place]) Comment on above: Performed By: #### U AMICAO, UA ####[place] [address] [place], [place] [address] UA Nitrite Negative Normal Negative [facility] ([place]) Comment on above: Performed By: #### U AMICAO, UA ####[place] [address] [place] [id number] UA pH 7.0 Normal 5.0 - 8.0 [facility] ([place]) Comment on above: Performed By: #### U AMICAO, UA ####[place] [address] [place] [address] UA Protein 100 mg/dL Abnormal Negative [facility] ([place]) Comment on above: Performed By: #### U AMICAO, UA ####[place] [address] [place], [place] [address] UA Spec Grav 1.025 Normal 1.015-1.025 [facility] ([place]) Comment on above: Performed By: #### U AMICAO, UA ####[place] [address] [place], [place] [address] UA Specimen Type Clean Catch Normal [facility] ([place]) Comment on above: Performed By: #### U AMICAO, UA ####[place] [address] [place], [place] [address] UA Urobilinogen 0.2 E.U./dL Normal 0.2-1.0 [facility] ([place]) Comment on above: Performed By: #### U AMICAO, UA ####[place] [address] [place] [address] Urobilinogen (U) [Mass/Vol] Negative Normal Negative [facility] ([place]) Comment on above: Performed By: #### U TIMBO UA ####[place] [address] [place], [place] [address] XR CHEST 1 VIEWon 05-29-2023 XR CHEST 1 VIEW Normal [facility] ([place]) .Auto Diffon 05-28-2023 Basophil, Absolute 0.0 10 3/mcL Normal 0.0-0.2 [facility] ([place]) Comment on above: Performed By: #### G FR, BMP, PBNP, TROPHS, ALC, MDW, ADIFF, CBC, ANEU ####[place] [address] [place], [place] [address] Basophils/100 WBC (Bld) 0.7 % Normal 0.0-2.5 [facility] ([place]) Comment on above: Performed By: #### G FR, BMP, PBNP, TROPHS, ALC, MDW, ADIFF, CBC, ANEU ####[place] [address] [place], [place] [address] Eosinophil, Absolute 0.0 10 3/mcL Normal 0.0-0.4 [facility] ([place]) Comment on above: Performed By: #### G FR, BMP, PBNP, TROPHS, ALC, MDW, ADIFF, CBC, ANEU ####[place] [address] [place], [place] [address] Eosinophils/100 WBC (Bld) 0.8 % Normal 0.0-7.0 [facility] ([place]) Comment on above: Performed By: #### G FR, BMP, PBNP, TROPHS, ALC, MDW, ADIFF, CBC, ANEU ####[place] [address] [place], [place] [address] Lymphocyte, Absolute 0.9 10 3/mcL Normal 0.8-3.9 [facility] ([place]) Comment on above: Performed By: #### G FR, BMP, PBNP, TROPHS, ALC, MDW, ADIFF, CBC, ANEU ####[place] [address] [place], [place] [address] Lymphocytes/100 WBC (Bld) 16.4 % Normal 10.0-50.0 [facility] ([place]) Comment on above: Performed By: #### G FR, BMP, PBNP, TROPHS, ALC, MDW, ADIFF, CBC, ANEU ####[place] [address] [place], [place] [address] Monocyte, Absolute 0.5 10 3/mcL Normal 0.2-1.0 [facility] ([place]) Comment on above: Performed By: #### G FR, BMP, PBNP, TROPHS, ALC, MDW, ADIFF, CBC, ANEU ####[place] [address] [place], [place] [address] Monocytes/100 WBC (Bld) 8.5 % Normal 1.7-13.0 [facility] ([place]) Comment on above: Performed By: #### G FR, BMP, PBNP, TROPHS, ALC, MDW, ADIFF, CBC, ANEU ####[place] [address] [place], [place] [address] Neutrophils/100 WBC (Bld) 73.6 % Normal 37.0-80.0 [facility] ([place]) Comment on above: Performed By: #### G FR, BMP, PBNP, TROPHS, ALC, MDW, ADIFF, CBC, ANEU ####[place] [address] [place], [place] [address] .GFRon 05-28-2023 GFR Non- 61 ml/min/1.73sqm Normal [facility] ([place]) Comment on above: Result Comment: GFR Population mean for , Non- Americans Ages 20-29 = 116 mL/min/1.73 sq.m. Ages 30-39 = 107 mL/min/1.73 sq.m. Ages 40-49 = 99 mL/min/1.73 sq.m. Ages 50-59 = 93 mL/min/1.73 sq.m. Ages 60-69 = 85 mL/min/1.73 sq.m. Ages 70+ = 75 mL/min/1.73 sq.m.Chronic Kidney Disease: Less than 60 mL/min/1.73 square metersEnd Stage Renal Disease: Less than 15 mL/min/1.73 square meters Performed By: #### G FR, BMP, PBNP, TROPHS, ALC, MDW, ADIFF, CBC, ANEU ####[place] [address] [place], [place] [address] GFR 74 ml/min/1.73sqm Normal [facility] ([place]) Comment on above: Result Comment: GFR Population mean for , Non- Americans Ages 20-29 = 116 mL/min/1.73 sq.m. Ages 30-39 = 107 mL/min/1.73 sq.m. Ages 40-49 = 99 mL/min/1.73 sq.m. Ages 50-59 = 93 mL/min/1.73 sq.m. Ages 60-69 = 85 mL/min/1.73 sq.m. Ages 70+ = 75 mL/min/1.73 sq.m.Chronic Kidney Disease: Less than 60 mL/min/1.73 square metersEnd Stage Renal Disease: Less than 15 mL/min/1.73 square meters Performed By: #### G FR, BMP, PBNP, TROPHS, ALC, MDW, ADIFF, CBC, ANEU ####[place] [address] [place], [place] [address] .MDWon 05-28-2023 Monocyte Distribution Width 17.45 Normal 0.00-20.00 [facility] ([place]) Comment on above: Result Comment: For ED adult patients suspected of sepsis, MDW<=20.0 does not rule out sepsis or risk of sepsis Performed By: #### G FR, BMP, PBNP, TROPHS, ALC, MDW, ADIFF, CBC, ANEU ####[place] [address] [place], [place] [address] .NEUABSon 05-28-2023 Neutrophil, Absolute 4.2 10 3/mcL Normal 2.9-6.2 [facility] ([place]) Comment on above: Performed By: #### G FR, BMP, PBNP, TROPHS, ALC, MDW, ADIFF, CBC, ANEU ####[place] [address] [place], [place] [address] Daisy 05-28-2023 Ethanol Level <3 Normal 0-3 [facility] ([place]) Comment on above: Performed By: #### G FR, BMP, PBNP, TROPHS, ALC, MDW, ADIFF, CBC, ANEU ####[place] [address] [place], [place] [address] BMPon 05-28-2023 BUN/Creatinine Ratio 12 ratio Normal 7-27 [facility] ([place]) Comment on above: Performed By: #### G FR, BMP, PBNP, TROPHS, ALC, MDW, ADIFF, CBC, ANEU ####[place] [address] [place], [place] [address] Calcium [Mass/Vol] 8.4 mg/dL Normal 8.4-10.2 [facility] ([place]) Comment on above: Performed By: #### G FR, BMP, PBNP, TROPHS, ALC, MDW, ADIFF, CBC, ANEU ####[place] [address] [place], [place] [address] Chloride [Moles/Vol] 97 mmol/L Low 98-107 [facility] ([place]) Comment on above: Performed By: #### G FR, BMP, PBNP, TROPHS, ALC, MDW, ADIFF, CBC, ANEU ####[place] [address] [place], [place] [address] CO2 [Moles/Vol] 29 mmol/L Normal 22-29 [facility] ([place]) Comment on above: Performed By: #### G FR, BMP, PBNP, TROPHS, ALC, MDW, ADIFF, CBC, ANEU ####[place] [address] [place], [place] [address] Creatinine [Mass/Vol] 1.22 mg/dL Normal 0.70-1.30 [facility] ([place]) Comment on above: Performed By: #### G FR, BMP, PBNP, TROPHS, ALC, MDW, ADIFF, CBC, ANEU ####[place] [address] [place], [place] [address] Electrolyte Balance 7.0 mEq/L Normal 4.0-15.0 [facility] ([place]) Comment on above: Performed By: #### G FR, BMP, PBNP, TROPHS, ALC, MDW, ADIFF, CBC, ANEU ####[place] [address] [place], [place] [address] Glucose [Mass/Vol] 312 mg/dL High 70-105 [facility] ([place]) Comment on above: Performed By: #### G FR, BMP, PBNP, TROPHS, ALC, MDW, ADIFF, CBC, ANEU ####[place] [address] [place], [place] [address] Potassium [Moles/Vol] 4.8 mmol/L Normal 3.5-5.1 [facility] ([place]) Comment on above: Performed By: #### G FR, BMP, PBNP, TROPHS, ALC, MDW, ADIFF, CBC, ANEU ####[place] [address] [place], [place] [address] Sodium [Moles/Vol] 133 mmol/L Low 136-145 [facility] ([place]) Comment on above: Performed By: #### G FR, BMP, PBNP, TROPHS, ALC, MDW, ADIFF, CBC, ANEU ####[place] [address] [place], [place] [address] Urea nitrogen [Mass/Vol] 15 mg/dL Normal 7-18 [facility] ([place]) Comment on above: Performed By: #### G FR, BMP, PBNP, TROPHS, ALC, MDW, ADIFF, CBC, ANEU ####[place] [address] [place], [place] [address] CBCon 05-28-2023 Erythrocyte distribution width (RBC) [Ratio] 13.6 % Normal 11.5-14.5 [facility] ([place]) Comment on above: Performed By: #### G FR, BMP, PBNP, TROPHS, ALC, MDW, ADIFF, CBC, ANEU ####[place] [address] [place], [place] [address] Hematocrit (Bld) [Volume fraction] 43.5 % Normal 42.0-52.0 [facility] ([place]) Comment on above: Performed By: #### G FR, BMP, PBNP, TROPHS, ALC, MDW, ADIFF, CBC, ANEU ####[place] [address] [place], [place] [address] Hgb 14.5 G/dL Normal 14.0-18.0 [facility] ([place]) Comment on above: Performed By: #### G FR, BMP, PBNP, TROPHS, ALC, MDW, ADIFF, CBC, ANEU ####[place] [address] [place], [place] [address] MCH (RBC) [Entitic mass] 30.5 pg Normal 27.0-31.2 [facility] ([place]) Comment on above: Performed By: #### G FR, BMP, PBNP, TROPHS, ALC, MDW, ADIFF, CBC, ANEU ####[place] [address] [place], [place] [address] MCHC 33.4 G/dL Normal 31.8-35.4 [facility] ([place]) Comment on above: Performed By: #### G FR, BMP, PBNP, TROPHS, ALC, MDW, ADIFF, CBC, ANEU ####[place] [address] [place], [place] [address] MCV (RBC) [Entitic vol] 91.5 fL Normal 80.0-94.0 [facility] ([place]) Comment on above: Performed By: #### G FR, BMP, PBNP, TROPHS, ALC, MDW, ADIFF, CBC, ANEU ####[place] [address] [place], [place] [address] Platelet 175 10 3/mcL Normal 130-400 [facility] ([place]) Comment on above: Performed By: #### G FR, BMP, PBNP, TROPHS, ALC, MDW, ADIFF, CBC, ANEU ####[place] [address] [place], [place] [address] Platelet mean volume (Bld) [Entitic vol] 7.6 fL Normal 7.4-10.4 [facility] ([place]) Comment on above: Performed By: #### G FR, BMP, PBNP, TROPHS, ALC, MDW, ADIFF, CBC, ANEU ####[place] [address] [place], [place] [address] RBC 4.75 10 6/mcL Normal 4.04-6.13 [facility] ([place]) Comment on above: Performed By: #### G FR, BMP, PBNP, TROPHS, ALC, MDW, ADIFF, CBC, ANEU ####[place] [address] [place], [place] [address] WBC 5.7 10 3/mcL Normal 4.6-10.8 [facility] ([place]) Comment on above: Performed By: #### G FR, BMP, PBNP, TROPHS, ALC, MDW, ADIFF, CBC, ANEU ####[place] [address] [place], [place] [address] LABORATORYOrdered By: SYSTEM SYSTEM on 05-28-2023 Basophil, Absolute 0.0 103/mcL Normal 0.0 - 0.2 10^3/mcL AO Workflow SS Basophils/100 WBC (Bld) 0.7 % Normal 0.0 - 2.5 % AO Workflow SS Calcium [Mass/Vol] 8.4 mg/dL Normal 8.4 - 10. 2 mg/dL AO ADM SS Chloride [Moles/Vol] 97 mmol/L Low 98 - 10 7 mmol/L AO ADM SS CO2 [Moles/Vol] 29 mmol/L Normal 22 - 29 mmol/L AO ADM SS Creatinine [Mass/Vol] 1.22 mg/dL Normal 0.70 - 1.30 mg/dL AO ADM SS Electrolyte Balance 7.0 mEq/L Normal 4.0 - 15 .0 mEq/L AO ADM SS Eosinophil, Absolute 0.0 103/mcL Normal 0.0 - 0 .4 10^3/mcL AO Workflow SS Eosinophils/100 WBC (Bld) 0.8 % Normal 0.0 - 7.0 % AO Workflow SS Erythrocyte distribution width (RBC) [Ratio] 13.6 % Normal 11.5 - 14.5 % AO Workflow SS GFR/1.73 sq M.predicted among blacks MDRD (S/P/Bld) [Vol rate/Area] 74 ml/min/1.73sqm Invalid Interpretation Code AO Chemistry S Comment on above: Interpretive Data: GFR Population mean for , Non- Americans Ages 20-29 = 116 mL/min/1.73 sq.m. Ages 30-39 = 107 mL/min/1.73 sq.m. Ages 40-49 = 99 mL/min/1.73 sq.m. Ages 50-59 = 93 mL/min/1.73 sq.m. Ages 60-69 = 85 mL/min/1.73 sq.m. Ages 70+ = 75 mL/min/1.73 sq.m. Chronic Kidney Disease: Less than 60 mL/min/1.73 square meters End Stage Renal Disease: Less than 15 mL/min/1.73 square meters GFR/1.73 sq M.predicted among non-blacks MDRD (S/P/Bld) [Vol rate/Area] 61 ml/min/1.73sqm Invalid Interpretation Code AO Chemistry S Comment on above: Interpretive Data: GFR Population mean for , Non- Americans Ages 20-29 = 116 mL/min/1.73 sq.m. Ages 30-39 = 107 mL/min/1.73 sq.m. Ages 40-49 = 99 mL/min/1.73 sq.m. Ages 50-59 = 93 mL/min/1.73 sq.m. Ages 60-69 = 85 mL/min/1.73 sq.m. Ages 70+ = 75 mL/min/1.73 sq.m. Chronic Kidney Disease: Less than 60 mL/min/1.73 square meters End Stage Renal Disease: Less than 15 mL/min/1.73 square meters Glucose [Mass/Vol] 312 mg/dL High 70 - 105 mg/dL AO ADM SS HbA1c (Bld) [Mass fraction] 10.6 % High 4.3 - 6.4 % AO ADM SS Hematocrit (Bld) [Volume fraction] 43.5 % Normal 42.0 - 52.0 % AO Workflow SS Hemoglobin (Bld) [Mass/Vol] 14.5 G/dL Normal 14.0 - 18.0 G/dL AO Workflow SS Lymphocyte, Absolute 0.9 103/mcL Normal 0.8 - 3 .9 10^3/mcL AO Workflow SS Lymphocytes/100 WBC (Bld) 16.4 % Normal 10.0 - 50.0 % AO Workflow SS MCH (RBC) [Entitic mass] 30.5 pg Normal 27.0 - 31.2 pg AO Workflow SS MCHC 33.4 G/dL Normal 31.8 - 35.4 G/dL AO Workflow SS MCV (RBC) [Entitic vol] 91.5 fL Normal 80.0 - 94.0 fL AO Workflow SS Monocyte distribution width Auto (Bld) [Entitic vol] 17.45 1 Normal 0.00 - 20.00 AO Workflow SS Comment on above: Result Comment: For ED adult patients suspected of sepsis, MDW<=20.0 does not rule out sepsis or risk of sepsis Monocyte, Absolute 0.5 103/mcL Normal 0.2 - 1.0 10^3/mcL AO Workflow SS Monocytes/100 WBC (Bld) 8.5 % Normal 1.7 - 13.0 % AO Workflow SS Natriuretic peptide.B prohormone N-Terminal [Mass/Vol] 8864 pg/mL High 0 - 125 pg/mL AO ADM SS Comment on above: Interpretive Data: N T-proBNP results of less than 300 pg/mL effectively rules out acute congestive heart failure with 99% negative predictive value. Neutrophil, Absolute 4.2 103/mcL Normal 2.9 - 6 .2 10^3/mcL AO Workflow SS Neutrophils/100 WBC (Bld) 73.6 % Normal 37.0 - 80.0 % AO Workflow SS Platelet mean volume (Bld) [Entitic vol] 7.6 fL Normal 7.4 - 10.4 fL AO Workflow SS Platelets (Bld) [#/Vol] 175 103/mcL Normal 130 - 400 10^3/mcL AO Workflow SS Potassium [Moles/Vol] 4.8 mmol/L Normal 3.5 - 5.1 mmol/L AO ADM SS RBC (Bld) [#/Vol] 4.75 106/mcL Normal 4.04 - 6.1 3 10^6/mcL AO Workflow SS Sodium [Moles/Vol] 133 mmol/L Low 136 - 145 mmol/L AO ADM SS Troponin I.cardiac DL <= 0.01 ng/mL [Mass/Vol] 52.3 ng/L Normal 0.0 - 76.2 ng/L AO ADM SS TSH Qn 3.78 m[IU]/L High 0.36 - 3.74 mcIU/mL AO ADM SS Urea nitrogen [Mass/Vol] 15 mg/dL Normal 7 - 18 mg/dL AO ADM SS Urea nitrogen/Creatinine [Mass ratio] 12 ratio Normal 7 - 27 ratio AO ADM SS WBC (Bld) [#/Vol] 5.7 103/mcL Normal 4.6 - 10.8 10^3/mcL AO Workflow SS LABORATORYOrdered By: Mimi Friend on 05-28-2023 Cholesterol [Mass/Vol] 113 mg/dL Normal 0 - 200 mg/dL AO ADM SS Comment on above: Interpretive Data: C holesterol Reference Interval: Less than 200 Desirable 200-239 Borderline high risk 240 and above High risk Cholesterol in HDL [Mass/Vol] 33 mg/dL Low 40 - 60 mg/dL AO ADM SS Cholesterol in LDL [Mass/Vol] 63 mg/dL Normal 0 - 130 mg/dL AO ADM SS Ethanol [Mass/Vol] mg/dL Normal 0 - 3 mg/dL AO Ch emistry S Triglyceride [Mass/Vol] 86 mg/dL Normal 0 - 150 mg/dL AO ADM SS Comment on above: Interpretive Data: T riglyceride Reference Interval: Less than 150 Normal 150-199 Borderline high risk 200-499 High risk 500 or higher Very high risk PBNPon 05-28-2023 Natriuretic peptide B (Bld) [Mass/Vol] 8864 pg/mL High 0-125 [facility] ([place]) Comment on above: Result Comment: NT-p roBNP results of less than 300 pg/mL effectivelyrules out acute congestive heart failure with 99% negative predictive value. Performed By: #### G FR, BMP, PBNP, TROPHS, ALC, MDW, ADIFF, CBC, ANEU ####[place] [address] [place], [place] [address] TROPHSon 05-28-2023 Troponin I High Sensitivity 52.3 ng/L Normal 0.0-76.2 [facility] ([place]) Comment on above: Performed By: #### G FR, BMP, PBNP, TROPHS, ALC, MDW, ADIFF, CBC, ANEU ####[place] [address] [place], [place] [address] .Auto Diffon 05-15-2023 Basophil, Absolute 0.0 10 3/mcL Normal 0.0-0.2 [facility] ([place]) Comment on above: Performed By: #### P BNP, ANEU, BMP, GFR, ALC, VBGAO, CBC, ADIFF, TROPHS, LAC, MDW ####[place] [address] [place], [place] [address] Basophils/100 WBC (Bld) 0.6 % Normal 0.0-2.5 [facility] ([place]) Comment on above: Performed By: #### P BNP, ANEU, BMP, GFR, ALC, VBGAO, CBC, ADIFF, TROPHS, LAC, MDW ####[place] [address] [place], [place] [address] Eosinophil, Absolute 0.1 10 3/mcL Normal 0.0-0.4 [facility] ([place]) Comment on above: Performed By: #### P BNP, ANEU, BMP, GFR, ALC, VBGAO, CBC, ADIFF, TROPHS, LAC, MDW ####[place] [address] [place], [place] [address] Eosinophils/100 WBC (Bld) 0.8 % Normal 0.0-7.0 [facility] ([place]) Comment on above: Performed By: #### P BNP, ANEU, BMP, GFR, ALC, VBGAO, CBC, ADIFF, TROPHS, LAC, MDW ####[place] [address] [place], [place] [address] Lymphocyte, Absolute 1.3 10 3/mcL Normal 0.8-3.9 [facility] ([place]) Comment on above: Performed By: #### P BNP, ANEU, BMP, GFR, ALC, VBGAO, CBC, ADIFF, TROPHS, LAC, MDW ####[place] [address] [place], [place] [address] Lymphocytes/100 WBC (Bld) 18.4 % Normal 10.0-50.0 [facility] ([place]) Comment on above: Performed By: #### P BNP, ANEU, BMP, GFR, ALC, VBGAO, CBC, ADIFF, TROPHS, LAC, MDW ####[place] [address] [place], [place] [address] Monocyte, Absolute 0.6 10 3/mcL Normal 0.2-1.0 [facility] ([place]) Comment on above: Performed By: #### P BNP, ANEU, BMP, GFR, ALC, VBGAO, CBC, ADIFF, TROPHS, BLAISE, NABIL ####[place] [address] [place], [place] [address] Monocytes/100 WBC (Bld) 8.9 % Normal 1.7-13.0 [facility] ([place]) Comment on above: Performed By: #### P BNP, ANEU, BMP, GFR, ALC, VBGAO, CBC, ADIFF, TROPHS, BLAISE, W ####[place] [address] [place], [place] [address] Neutrophils/100 WBC (Bld) 71.3 % Normal 37.0-80.0 [facility] ([place]) Comment on above: Performed By: #### P BNP, ANEU, BMP, GFR, ALC, VBGAO, CBC, ADIFF, TROPHS, BLAISE, W ####[place] [address] [place], [place] [address] .GFRon 05-15-2023 GFR Non- 60 ml/min/1.73sqm Normal [facility] ([place]) Comment on above: Result Comment: GFR Population mean for , Non- Americans Ages 20-29 = 116 mL/min/1.73 sq.m. Ages 30-39 = 107 mL/min/1.73 sq.m. Ages 40-49 = 99 mL/min/1.73 sq.m. Ages 50-59 = 93 mL/min/1.73 sq.m. Ages 60-69 = 85 mL/min/1.73 sq.m. Ages 70+ = 75 mL/min/1.73 sq.m.Chronic Kidney Disease: Less than 60 mL/min/1.73 square metersEnd Stage Renal Disease: Less than 15 mL/min/1.73 square meters Performed By: #### P BNP, ANEU, BMP, GFR, ALC, VBGAO, CBC, ADIFF, TROPHS, BLAISE, W ####[place] [address] [place], [place] [address] GFR 72 ml/min/1.73sqm Normal [facility] ([place]) Comment on above: Result Comment: GFR Population mean for , Non- Americans Ages 20-29 = 116 mL/min/1.73 sq.m. Ages 30-39 = 107 mL/min/1.73 sq.m. Ages 40-49 = 99 mL/min/1.73 sq.m. Ages 50-59 = 93 mL/min/1.73 sq.m. Ages 60-69 = 85 mL/min/1.73 sq.m. Ages 70+ = 75 mL/min/1.73 sq.m.Chronic Kidney Disease: Less than 60 mL/min/1.73 square metersEnd Stage Renal Disease: Less than 15 mL/min/1.73 square meters Performed By: #### P BNP, ANEU, BMP, GFR, ALC, VBGAO, CBC, ADIFF, TROPHS, LAC, NABIL ####[place] [address] [place], [place] [address] .MDWon 05-15-2023 Monocyte Distribution Width 17.02 Normal 0.00-20.00 [facility] ([place]) Comment on above: Result Comment: For ED adult patients suspected of sepsis, MDW<=20.0 does not rule out sepsis or risk of sepsis Performed By: #### P BNP, ANEU, BMP, GFR, ALC, VBGAO, CBC, ADIFF, TROPHS, LAC, NABIL ####[place] [address] [place], [place] [address] .NEUABSon 05-15-2023 Neutrophil, Absolute 4.9 10 3/mcL Normal 2.9-6.2 [facility] ([place]) Comment on above: Performed By: #### P BNP, ANEU, BMP, GFR, ALC, VBGAO, CBC, ADIFF, TROPHS, LAC, NABIL ####[place] [address] [place], [place] [address] Daisy 05-15-2023 Ethanol Level 228 mg/dL High 0-3 [facility] ([place]) Comment on above: Performed By: #### P BNP, ANEU, BMP, GFR, ALC, VBGAO, CBC, ADIFF, TROPHS, LAC, W ####[place] [address] [place], [place] [address] BMPon 05-15-2023 BUN/Creatinine Ratio 11 ratio Normal 7-27 [facility] ([place]) Comment on above: Performed By: #### P BNP, ANEU, BMP, GFR, ALC, VBGAO, CBC, ADIFF, TROPHS, LAC, NABIL ####[place] [address] [place], [place] [address] Calcium [Mass/Vol] 8.1 mg/dL Low 8.4-10.2 [facility] ([place]) Comment on above: Performed By: #### P BNP, ANEU, BMP, GFR, ALC, VBGAO, CBC, ADIFF, TROPHS, LAC, W ####[place] [address] [place], [place] [address] Chloride [Moles/Vol] 91 mmol/L Low 98-107 [facility] ([place]) Comment on above: Performed By: #### P BNP, ANEU, BMP, GFR, ALC, VBGAO, CBC, ADIFF, TROPHS, LAC, W ####[place] [address] [place], [place] [address] CO2 [Moles/Vol] 25 mmol/L Normal 22-29 [facility] ([place]) Comment on above: Performed By: #### P BNP, ANEU, BMP, GFR, ALC, VBGAO, CBC, ADIFF, TROPHS, LAC, NABIL ####[place] [address] [place], [place] [address] Creatinine [Mass/Vol] 1.25 mg/dL Normal 0.70-1.30 [facility] ([place]) Comment on above: Performed By: #### P BNP, ANEU, BMP, GFR, ALC, VBGAO, CBC, ADIFF, TROPHS, LAC, NABIL ####[place] [address] [place], [place] [address] Electrolyte Balance 12.0 mEq/L Normal 4.0-15.0 [facility] ([place]) Comment on above: Performed By: #### P BNP, ANEU, BMP, GFR, ALC, VBGAO, CBC, ADIFF, TROPHS, LAC, W ####[place] [address] [place], [place] [address] Glucose [Mass/Vol] 172 mg/dL High 70-105 [facility] ([place]) Comment on above: Performed By: #### P BNP, ANEU, BMP, GFR, ALC, VBGAO, CBC, ADIFF, TROPHS, LAC, W ####[place] [address] [place], [place] [address] Potassium [Moles/Vol] 4.6 mmol/L Normal 3.5-5.1 [facility]) Comment on above: Performed By: #### P BNP, ANEU, BMP, GFR, ALC, VBGAO, CBC, ADIFF, TROPHS, LAC, W ####[place] [address] [place], [place] [address] Sodium [Moles/Vol] 128 mmol/L Low 136-145 [facility] ([place]) Comment on above: Performed By: #### P BNP, ANEU, BMP, GFR, ALC, VBGAO, CBC, ADIFF, TROPHS, LAC, NABIL ####[place] [address] [place], [place] [address] Urea nitrogen [Mass/Vol] 14 mg/dL Normal 7-18 [facility] ([place]) Comment on above: Performed By: #### P BNP, ANEU, BMP, GFR, ALC, VBGAO, CBC, ADIFF, TROPHS, LAC, NABIL ####[place] [address] [place], [place] [address] CBCon 05-15-2023 Erythrocyte distribution width (RBC) [Ratio] 13.5 % Normal 11.5-14.5 [facility] ([place]) Comment on above: Performed By: #### P BNP, ANEU, BMP, GFR, ALC, VBGAO, CBC, ADIFF, TROPHS, LAC, NABIL ####[place] [address] [place], [place] [address] Hematocrit (Bld) [Volume fraction] 43.1 % Normal 42.0-52.0 [facility] ([place]) Comment on above: Performed By: #### P BNP, ANEU, BMP, GFR, ALC, VBGAO, CBC, ADIFF, TROPHS, LAC, W ####[place] [address] [place], [place] [address] Hgb 14.6 G/dL Normal 14.0-18.0 [facility] ([place]) Comment on above: Performed By: #### P BNP, ANEU, BMP, GFR, ALC, VBGAO, CBC, ADIFF, TROPHS, LAC, W ####[place] [address] [place], [place] [address] MCH (RBC) [Entitic mass] 30.9 pg Normal 27.0-31.2 [facility] ([place]) Comment on above: Performed By: #### P BNP, ANEU, BMP, GFR, ALC, VBGAO, CBC, ADIFF, TROPHS, LAC, W ####[place] [address] [place], [place] [address] MCHC 33.9 G/dL Normal 31.8-35.4 [facility] ([place]) Comment on above: Performed By: #### P BNP, ANEU, BMP, GFR, ALC, VBGAO, CBC, ADIFF, TROPHS, LAC, NABIL ####[place] [address] [place], [place] [address] MCV (RBC) [Entitic vol] 91.1 fL Normal 80.0-94.0 [facility] ([place]) Comment on above: Performed By: #### P BNP, ANEU, BMP, GFR, ALC, VBGAO, CBC, ADIFF, TROPHS, LAC, W ####[place] [address] [place], [place] [address] Platelet 165 10 3/mcL Normal 130-400 [facility] ([place]) Comment on above: Performed By: #### P BNP, ANEU, BMP, GFR, ALC, VBGAO, CBC, ADIFF, TROPHS, LAC, W ####[place] [address] [place], [place] [address] Platelet mean volume (Bld) [Entitic vol] 7.3 fL Low 7.4-10.4 [facility] ([place]) Comment on above: Performed By: #### P BNP, ANEU, BMP, GFR, ALC, VBGAO, CBC, ADIFF, TROPHS, LAC, W ####[place] [address] [place], [place] [address] RBC 4.74 10 6/mcL Normal 4.04-6.13 [facility] ([place]) Comment on above: Performed By: #### P BNP, ANEU, BMP, GFR, ALC, VBGAO, CBC, ADIFF, TROPHS, LAC, MDW ####[place] [address] [place], [place] [address] WBC 6.9 10 3/mcL Normal 4.6-10.8 [facility] ([place]) Comment on above: Performed By: #### P BNP, ANEU, BMP, GFR, ALC, VBGAO, CBC, ADIFF, TROPHS, LAC, MDW ####[place] [address] [place], [place] [address] HFPon 05-15-2023 Albumin Level 3.1 G/dL Low 3.5-5.0 [facility] ([place]) Comment on above: Performed By: #### H FP ####[place] [address] [place], [place] [address] Albumin/Globulin [Mass ratio] 0.9 {ratio} Low 1.1-2.5 [facility] ([place]) Comment on above: Performed By: #### H FP ####[place] [address] [place], [place] [address] ALP [Catalytic activity/Vol] 85 U/L Normal 40-135 [facility] ([place]) Comment on above: Performed By: #### H FP ####[place] [address] [place], [place] [address] ALT [Catalytic activity/Vol] 25 U/L Normal 16-63 [facility] ([place]) Comment on above: Performed By: #### H FP ####[place] [address] [place], [place] [address] AST [Catalytic activity/Vol] 26 U/L Normal 10-40 [facility] ([place]) Comment on above: Performed By: #### H FP ####[place] [address] [place], [place] [address] Bili Direct 0.3 mg/dL High 0.0-0.2 [facility] ([place]) Comment on above: Result Comment: Use of this assay is not recommended for patients undergoing treatment with eltrombopag due to the potential for falsely elevated results. Performed By: #### H FP ####[place] [address] [place], [place] [address] Bili Indirect 0.6 mg/dL Normal [facility] ([place]) Comment on above: Performed By: #### H FP ####[place] [address] [place], [place] [address] Bili Total 1.0 mg/dL Normal 0.2-1.0 [facility] ([place]) Comment on above: Result Comment: Use of this assay is not recommended for patients undergoing treatment with eltrombopag due to the potential for falsely elevated results. Performed By: #### H FP ####[place] [address] [place], [place] [address] Globulin 3.4 G/dL Normal [facility] ([place]) Comment on above: Performed By: #### H FP ####[place] [address] [place], [place] [address] Total Protein 6.5 G/dL Normal 6.4-8.2 [facility] ([place]) Comment on above: Performed By: #### H FP ####[place] [address] [place], [place] [address] LABORATORYOrdered By: SYSTEM SYSTEM on 05-15-2023 Albumin BCP dye [Mass/Vol] 3.1 G/dL Low 3.5 - 5.0 G/dL AO ADM SS Albumin/Globulin [Mass ratio] 0.9 {ratio} Low 1.1 - 2.5 ratio AO ADM SS ALP [Catalytic activity/Vol] 85 U/L Normal 40 - 135 U/L AO ADM SS ALT With P-5'-P [Catalytic activity/Vol] 25 U/L Normal 16 - 63 U/L AO ADM SS AST With P-5'-P [Catalytic activity/Vol] 26 U/L Normal 10 - 40 U/L AO ADM SS Bilirubin [Mass/Vol] 1.0 mg/dL Normal 0.2 - 1 .0 mg/dL AO ADM SS Comment on above: Interpretive Data: U se of this assay is not recommended for patients undergoing treatment with eltrombopag due to the potential for falsely elevated results. Bilirubin.direct [Mass/Vol] 0.3 mg/dL High 0.0 - 0.2 mg/dL AO ADM SS Comment on above: Interpretive Data: U se of this assay is not recommended for patients undergoing treatment with eltrombopag due to the potential for falsely elevated results. Bilirubin.direct [Mass/Vol] 0.6 mg/dL Invalid Interpretation Code AO Chemistry S Globulin 3.4 G/dL Invalid Interpretation Code AO ADM SS Protein [Mass/Vol] 6.5 G/dL Normal 6.4 - 8.2 G/dL AO ADM SS Basophil, Absolute 0.0 103/mcL Normal 0.0 - 0.2 10^3/mcL AO Workflow SS Basophils/100 WBC (Bld) 0.6 % Normal 0.0 - 2.5 % AO Workflow SS Calcium [Mass/Vol] 8.1 mg/dL Low 8.4 - 10. 2 mg/dL AO ADM SS Chloride [Moles/Vol] 91 mmol/L Low 98 - 10 7 mmol/L AO ADM SS CO2 [Moles/Vol] 25 mmol/L Normal 22 - 29 mmol/L AO ADM SS Creatinine [Mass/Vol] 1.25 mg/dL Normal 0.70 - 1.30 mg/dL AO ADM SS Electrolyte Balance 12.0 mEq/L Normal 4.0 - 15 .0 mEq/L AO ADM SS Eosinophil, Absolute 0.1 103/mcL Normal 0.0 - 0 .4 10^3/mcL AO Workflow SS Eosinophils/100 WBC (Bld) 0.8 % Normal 0.0 - 7.0 % AO Workflow SS Erythrocyte distribution width (RBC) [Ratio] 13.5 % Normal 11.5 - 14.5 % AO Workflow SS Ethanol [Mass/Vol] 228 mg/dL High 0 - 3 mg/dL AO AD M SS GFR/1.73 sq M.predicted among blacks MDRD (S/P/Bld) [Vol rate/Area] 72 ml/min/1.73sqm Invalid Interpretation Code AO Chemistry S Comment on above: Interpretive Data: GFR Population mean for , Non- Americans Ages 20-29 = 116 mL/min/1.73 sq.m. Ages 30-39 = 107 mL/min/1.73 sq.m. Ages 40-49 = 99 mL/min/1.73 sq.m. Ages 50-59 = 93 mL/min/1.73 sq.m. Ages 60-69 = 85 mL/min/1.73 sq.m. Ages 70+ = 75 mL/min/1.73 sq.m. Chronic Kidney Disease: Less than 60 mL/min/1.73 square meters End Stage Renal Disease: Less than 15 mL/min/1.73 square meters GFR/1.73 sq M.predicted among non-blacks MDRD (S/P/Bld) [Vol rate/Area] 60 ml/min/1.73sqm Invalid Interpretation Code AO Chemistry S Comment on above: Interpretive Data: GFR Population mean for , Non- Americans Ages 20-29 = 116 mL/min/1.73 sq.m. Ages 30-39 = 107 mL/min/1.73 sq.m. Ages 40-49 = 99 mL/min/1.73 sq.m. Ages 50-59 = 93 mL/min/1.73 sq.m. Ages 60-69 = 85 mL/min/1.73 sq.m. Ages 70+ = 75 mL/min/1.73 sq.m. Chronic Kidney Disease: Less than 60 mL/min/1.73 square meters End Stage Renal Disease: Less than 15 mL/min/1.73 square meters Glucose [Mass/Vol] 172 mg/dL High 70 - 105 mg/dL AO ADM SS Hematocrit (Bld) [Volume fraction] 43.1 % Normal 42.0 - 52.0 % AO Workflow SS Hemoglobin (Bld) [Mass/Vol] 14.6 G/dL Normal 14.0 - 18.0 G/dL AO Workflow SS Lactate [Moles/Vol] 1.2 mmol/L Normal 0.4 - 2. 0 mmol/L AO ADM SS Lymphocyte, Absolute 1.3 103/mcL Normal 0.8 - 3 .9 10^3/mcL AO Workflow SS Lymphocytes/100 WBC (Bld) 18.4 % Normal 10.0 - 50.0 % AO Workflow SS MCH (RBC) [Entitic mass] 30.9 pg Normal 27.0 - 31.2 pg AO Workflow SS MCHC 33.9 G/dL Normal 31.8 - 35.4 G/dL AO Workflow SS MCV (RBC) [Entitic vol] 91.1 fL Normal 80.0 - 94.0 fL AO Workflow SS Monocyte distribution width Auto (Bld) [Entitic vol] 17.02 1 Normal 0.00 - 20.00 AO Workflow SS Comment on above: Result Comment: For ED adult patients suspected of sepsis, MDW<=20.0 does not rule out sepsis or risk of sepsis Monocyte, Absolute 0.6 103/mcL Normal 0.2 - 1.0 10^3/mcL AO Workflow SS Monocytes/100 WBC (Bld) 8.9 % Normal 1.7 - 13.0 % AO Workflow SS Natriuretic peptide.B prohormone N-Terminal [Mass/Vol] 3218 pg/mL High 0 - 125 pg/mL AO ADM SS Comment on above: Interpretive Data: N T-proBNP results of less than 300 pg/mL effectively rules out acute congestive heart failure with 99% negative predictive value. Neutrophil, Absolute 4.9 103/mcL Normal 2.9 - 6 .2 10^3/mcL AO Workflow SS Neutrophils/100 WBC (Bld) 71.3 % Normal 37.0 - 80.0 % AO Workflow SS Platelet mean volume (Bld) [Entitic vol] 7.3 fL Low 7.4 - 10.4 fL AO Workflow SS Platelets (Bld) [#/Vol] 165 103/mcL Normal 130 - 400 10^3/mcL AO Workflow SS Potassium [Moles/Vol] 4.6 mmol/L Normal 3.5 - 5.1 mmol/L AO ADM SS RBC (Bld) [#/Vol] 4.74 106/mcL Normal 4.04 - 6.1 3 10^6/mcL AO Workflow SS Sodium [Moles/Vol] 128 mmol/L Low 136 - 145 mmol/L AO ADM SS Troponin I.cardiac DL <= 0.01 ng/mL [Mass/Vol] 41.0 ng/L Normal 0.0 - 76.2 ng/L AO ADM SS Urea nitrogen [Mass/Vol] 14 mg/dL Normal 7 - 18 mg/dL AO ADM SS Urea nitrogen/Creatinine [Mass ratio] 11 ratio Normal 7 - 27 ratio AO ADM SS WBC (Bld) [#/Vol] 6.9 103/mcL Normal 4.6 - 10.8 10^3/mcL AO Workflow SS LABORATORYOrdered By: Roderick Valencia on 05-15-2023 Base excess standard Calc (BldV) [Moles/Vol] 0 mmol/L Normal -2 - 3 mmol/L AO Blood Gas SS CO2 (BldV) [Partial pressure] 51 mm[Hg] Normal 41 - 51 mm Hg AO Blood Gas SS CO2 [Moles/Vol] 28.0 mmol/L Normal 24.0 - 29.0 mmol/L AO Blood Gas SS HCO3 (Bld) [Moles/Vol] 26.0 mmol/L Normal 23.0 - 28.0 mmol/L AO Blood Gas SS pH (BldV) 7.30 [pH] Low 7.31 - 7.41 AO Blood Gas SS pO2 He[place] 31 mm[Hg] Invalid Interpretation Code AO Blood Gas SS LACon 05-15-2023 Lactic Acid Lvl 1.2 mmol/L Normal 0.4-2.0 [facility] ([place]) Comment on above: Performed By: #### P BNP, ANEU, BMP, GFR, ALC, VBGAO, CBC, ADIFF, TROPHS, BLAISE, NABIL ####[place] [address] [place], [place] [address] PBNPon 05-15-2023 Natriuretic peptide B (Bld) [Mass/Vol] 3218 pg/mL High 0-125 [facility] ([place]) Comment on above: Result Comment: NT-p roBNP results of less than 300 pg/mL effectivelyrules out acute congestive heart failure with 99% negative predictive value. Performed By: #### P BNP, ANEU, BMP, GFR, ALC, VBGAO, CBC, ADIFF, TROPHS, BLAISE, NABIL ####[place] [address] [place], [place] [address] TROPHSon 05-15-2023 Troponin I High Sensitivity 41.0 ng/L Normal 0.0-76.2 [facility] ([place]) Comment on above: Performed By: #### P BNP, ANEU, BMP, GFR, ALC, VBGAO, CBC, ADIFF, TROPHS, LAC, NABIL ####[place] [address] [place], [place] [address] VBGAOon 05-15-2023 BE Venous 0 mmol/L Normal -2-3 [facility] ([place]) Comment on above: Performed By: #### P BNP, ANEU, BMP, GFR, ALC, VBGAO, CBC, ADIFF, TROPHS, BLAISE, NABIL ####[place] [address] [place], [place] [address] CO2 [Moles/Vol] 28.0 mmol/L Normal 24.0-29.0 [facility] ([place]) Comment on above: Performed By: #### P BNP, ANEU, BMP, GFR, ALC, VBGAO, CBC, ADIFF, TROPHS, BLAISE, NABIL ####[place] [address] [place], [place] [address] HCO3 (Bld) [Moles/Vol] 26.0 mmol/L Normal 23.0-28.0 [facility] ([place]) Comment on above: Performed By: #### P BNP, ANEU, BMP, GFR, ALC, VBGAO, CBC, ADIFF, TROPHS, BLAISE, NABIL ####[place] [address] [place], [place] [address] O2 Sat [place] 53 Normal [facility] ([place]) Comment on above: Performed By: #### P BNP, ANEU, BMP, GFR, ALC, VBGAO, CBC, ADIFF, TROPHS, NABIL WELSH ####[place] [address] [place], [place] [address] pCO2 Heber 51 mmHg Normal 41-51 [facility] ([place]) Comment on above: Performed By: #### P BNP, ANEU, BMP, GFR, ALC, VBGAO, CBC, ADIFF, TROPHS, BLAISE, NABIL ####[place] [address] [place], [place] [address] pH Venous 7.30 Low 7.31-7.41 [facility] ([place]) Comment on above: Performed By: #### P BNP, ANEU, BMP, GFR, ALC, VBGAO, CBC, ADIFF, TROPHS, BLAISE, NABIL ####[place] [address] [place], [place] [address] pO2 Heber 31 mmHg Normal [facility] ([place]) Comment on above: Performed By: #### P BNP, ANEU, BMP, GFR, ALC, VBGAO, CBC, ADIFF, TROPHS, LAC, MDW ####[place] [id number] [place], [place] [address] XR CHEST 1 VIEWon 05-15-2023 XR CHEST 1 VIEW Normal [facility] ([place]) .Auto Diffon 04-25-2023 Basophil, Absolute 0.0 10 3/mcL Normal 0.0-0.2 [facility] ([place]) Comment on above: Performed By: #### C FADY, IRAJ, W, GFR, BMP, TROPHS, DIMER, ADIFF, PBNP ####[place] [address] [place], [place] [address] Basophils/100 WBC (Bld) 0.8 % Normal 0.0-2.5 [facility] ([place]) Comment on above: Performed By: #### C FADY, IRAJ, W, GFR, BMP, TROPHS, DIMER, ADIFF, PBNP ####[place] [id number] [place], [place] [address] Eosinophil, Absolute 0.1 10 3/mcL Normal 0.0-0.4 [facility] ([place]) Comment on above: Performed By: #### C FADY, NABIL GALO, GFR, BMP, TROPHS, DIMER, ADIFF, PBNP ####[place] [address] [place], [place] [address] Eosinophils/100 WBC (Bld) 1.7 % Normal 0.0-7.0 [facility] ([place] Comment on above: Performed By: #### C FADY, NABIL GALO, GFR, BMP, TROPHS, DIMER, ADIFF, PBNP ####[place] [address] [place], [place] [address] Lymphocyte, Absolute 1.3 10 3/mcL Normal 0.8-3.9 [facility] [facility] ([place] Comment on above: Performed By: #### C FADY, MD IRAJW, GFR, BMP, TROPHS, DIMER, ADIFF, PBNP ####[place] [address] [place], [place] [address] Lymphocytes/100 WBC (Bld) 23.8 % Normal 10.0-50.0 [facility] ([place]) Comment on above: Performed By: #### C FADY, NABIL GALO, GFR, BMP, TROPHS, DIMER, ADIFF, PBNP ####[place] [address] [place], [place] [address] Monocyte, Absolute 0.6 10 3/mcL Normal 0.2-1.0 [facility] ([place]) Comment on above: Performed By: #### C FADY, NABIL GALO, GFR, BMP, TROPHS, DIMER, ADIFF, PBNP ####[place] [address] [place], [place] [address] Monocytes/100 WBC (Bld) 9.9 % Normal 1.7-13.0 [facility] ([place]) Comment on above: Performed By: #### C IRAJ SHRESTHA MDW, GFR, BMP, TROPHS, DIMER, ADIFF, PBNP ####[place] [address] [place], [place] [address] Neutrophils/100 WBC (Bld) 63.8 % Normal 37.0-80.0 [facility] ([place]) Comment on above: Performed By: #### C FADY, NABIL GALO, GFR, BMP, TROPHS, DIMER, ADIFF, PBNP ####[place] [address] [place], [place] [address] .GFRon 04-25-2023 GFR 80 ml/min/1.73sqm Normal [facility] ([place]) Comment on above: Result Comment: GFR Population mean for , Non- Americans Ages 20-29 = 116 mL/min/1.73 sq.m. Ages 30-39 = 107 mL/min/1.73 sq.m. Ages 40-49 = 99 mL/min/1.73 sq.m. Ages 50-59 = 93 mL/min/1.73 sq.m. Ages 60-69 = 85 mL/min/1.73 sq.m. Ages 70+ = 75 mL/min/1.73 sq.m.Chronic Kidney Disease: Less than 60 mL/min/1.73 square metersEnd Stage Renal Disease: Less than 15 mL/min/1.73 square meters Performed By: #### C FADY, ANEU, MDW, GFR, BMP, TROPHS, DIMER, ADIFF, PBNP ####[place] [address] [place], [place] [address] GFR Non- 66 ml/min/1.73sqm Normal [facility] ([place]) Comment on above: Result Comment: GFR Population mean for , Non- Americans Ages 20-29 = 116 mL/min/1.73 sq.m. Ages 30-39 = 107 mL/min/1.73 sq.m. Ages 40-49 = 99 mL/min/1.73 sq.m. Ages 50-59 = 93 mL/min/1.73 sq.m. Ages 60-69 = 85 mL/min/1.73 sq.m. Ages 70+ = 75 mL/min/1.73 sq.m.Chronic Kidney Disease: Less than 60 mL/min/1.73 square metersEnd Stage Renal Disease: Less than 15 mL/min/1.73 square meters Performed By: #### C IRAJ SHRESTHA MDW, GFR, BMP, TROPHS, DIMER, ADIFF, PBNP ####[place] [address] [place], [place] [address] .MDWon 04-25-2023 Monocyte Distribution Width 17.47 Normal 0.00-20.00 [facility] ([place]) Comment on above: Result Comment: For ED adult patients suspected of sepsis, MDW<=20.0 does not rule out sepsis or risk of sepsis Performed By: #### C IRAJ SHRESTHA MDW, GFR, BMP, TROPHS, DIMER, ADIFF, PBNP ####[place] [address] [place], [place] [address] .NEUABSon 04-25-2023 Neutrophil, Absolute 3.5 10 3/mcL Normal 2.9-6.2 [facility] ([place]) Comment on above: Performed By: #### C IRAJ SHRESTHA MDW, GFR, BMP, TROPHS, DIMER, ADIFF, PBNP ####[place] [address] [place], [place] [address] .Urinalysis Microscopic (AO) on 04-25-2023 UA RBC 0-5 Abnormal None Seen [facility] ([place]) Comment on above: Performed By: #### U AMICAO, UA ####[place] [address] [place], [place] [address] UA Squam Epithelial None Seen Normal None Seen [facility] ([place]) Comment on above: Performed By: #### U AMICAO, UA ####[place] [address] [place], [place] [address] UA WBC None Seen Normal None Seen [facility] ([place]) Comment on above: Performed By: #### U AMICAO, UA ####[place] [address] [place], [place] [address] BMPon 04-25-2023 BUN/Creatinine Ratio 8 ratio Normal 7-27 [facility] ([place]) Comment on above: Performed By: #### C IRAJ SHRESTHA MDW, GFR, BMP, TROPHS, DIMER, ADIFF, PBNP ####[place] [address] [place], [place] [address] Calcium [Mass/Vol] 8.4 mg/dL Normal 8.4-10.2 [facility] ([place]) Comment on above: Performed By: #### C IRAJ SHRESTHA MDW, GFR, BMP, TROPHS, DIMER, ADIFF, PBNP ####[place] [address] [place], [place] [address] Chloride [Moles/Vol] 98 mmol/L Normal 98-107 [facility] ([place]) Comment on above: Performed By: #### C IRAJ SHRESTHA MDW, GFR, BMP, TROPHS, DIMER, ADIFF, PBNP ####[place] [address] [place], [place] [address] CO2 [Moles/Vol] 27 mmol/L Normal 22-29 [facility] ([place]) Comment on above: Performed By: #### C IRAJ SHRESTHA MDW, GFR, BMP, TROPHS, DIMER, ADIFF, PBNP ####[place] [address] [place], [place] [address] Creatinine [Mass/Vol] 1.15 mg/dL Normal 0.70-1.30 [facility] ([place]) Comment on above: Performed By: #### C FADY IRAJ, MDW, GFR, BMP, TROPHS, DIMER, ADIFF, PBNP ####[place] [address] [place], [place] [address] Electrolyte Balance 10.0 mEq/L Normal 4.0-15.0 [facility] ([place]) Comment on above: Performed By: #### C BC, ANEU, MDW, GFR, BMP, TROPHS, DIMER, ADIFF, PBNP ####[place] [address] [place], [place] [address] Glucose [Mass/Vol] 256 mg/dL High 70-105 [facility] ([place]) Comment on above: Performed By: #### C BC, IRAJ, MDW, GFR, BMP, TROPHS, DIMER, ADIFF, PBNP ####[place] [address] [place], [place] [address] Potassium [Moles/Vol] 4.3 mmol/L Normal 3.5-5.1 [facility] ([place]) Comment on above: Performed By: #### C FADY, IRAJ, MDW, GFR, BMP, TROPHS, DIMER, ADIFF, PBNP ####[address] [place], [place] [address] Sodium [Moles/Vol] 135 mmol/L Low 136-145 [facility] ([place]) Comment on above: Performed By: #### C FADY, IRAJ, MDW, GFR, BMP, TROPHS, DIMER, ADIFF, PBNP ####[place] [address] [place], [place] [address] Urea nitrogen [Mass/Vol] 9 mg/dL Normal 7-18 [facility] ([place]) Comment on above: Performed By: #### C FADY, IRAJ, MDW, GFR, BMP, TROPHS, DIMER, ADIFF, PBNP ####[place] [address] [place], [place] [address] CBCon 04-25-2023 Erythrocyte distribution width (RBC) [Ratio] 13.4 % Normal 11.5-14.5 [facility] ([place]) Comment on above: Performed By: #### C BC, IRAJ, MDW, GFR, BMP, TROPHS, DIMER, ADIFF, PBNP ####[place] [address] [place], [place] [address] Hematocrit (Bld) [Volume fraction] 42.2 % Normal 42.0-52.0 [facility] ([place]) Comment on above: Performed By: #### C BC, ANEU, MDW, GFR, BMP, TROPHS, DIMER, ADIFF, PBNP ####[place] [address] [place], [place] [address] Hgb 14.6 G/dL Normal 14.0-18.0 [facility] ([place]) Comment on above: Performed By: #### C BC, ANEU, MDW, GFR, BMP, TROPHS, DIMER, ADIFF, PBNP ####[place] [address] [place], [place] [address] MCH (RBC) [Entitic mass] 31.6 pg High 27.0-31.2 [facility] ([place]) Comment on above: Performed By: #### C BC, ANEU, MDW, GFR, BMP, TROPHS, DIMER, ADIFF, PBNP ####[place] [address] [place], [place] [address] MCHC 34.6 G/dL Normal 31.8-35.4 [facility] ([place]) Comment on above: Performed By: #### C BC, ANEU, MDW, GFR, BMP, TROPHS, DIMER, ADIFF, PBNP ####[place] [address] [place], [place] [address] MCV (RBC) [Entitic vol] 91.3 fL Normal 80.0-94.0 [facility] ([place]) Comment on above: Performed By: #### C BC, ANEU, MDW, GFR, BMP, TROPHS, DIMER, ADIFF, PBNP ####[place] [address] [place], [place] [address] Platelet 194 10 3/mcL Normal 130-400 [facility] ([place]) Comment on above: Performed By: #### C BC, ANEU, MDW, GFR, BMP, TROPHS, DIMER, ADIFF, PBNP ####[place] [address] [place] [id number] Platelet mean volume (Bld) [Entitic vol] 7.2 fL Low 7.4-10.4 [facility] ([place]) Comment on above: Performed By: #### C FADY, NABIL GALO, GFR, BMP, TROPHS, DIMER, ADIFF, PBNP ####[place] [address] [place], [place] [address] RBC 4.62 10 6/mcL Normal 4.04-6.13 [facility] ([place]) Comment on above: Performed By: #### C FADY, IRAJ, W, GFR, BMP, TROPHS, DIMER, ADIFF, PBNP ####[place] [address] [place], [place] [address] WBC 5.6 10 3/mcL Normal 4.6-10.8 [facility] ([place]) Comment on above: Performed By: #### C FADY, IRAJ, NABIL, GFR, BMP, TROPHS, DIMER, ADIFF, PBNP ####[place] [address] [place], [place] [address] CT ANGIOGRAPHY CHEST W/CONTR Bharati 04-25-2023 CT ANGIOGRAPHY CHEST W/CONTRAST Normal [facility] ([place]) DIMERon 04-25-2023 D-Dimer 374 ng/mL D-DU High 0-230 [facility] ([place]) Comment on above: Result Comment: Resu lts reported in D-DU ng/mL.Positive for D-dimer. A positive D-Dimer may occur in the following:DVT, PE, DIC, Trauma, Cancer, Sepsis, , Rheumatoid arthritis, Myocardial infarction and Cirrhosis. The presence of Rheumatoid Factor and HAMA (human mouse antibody) produces an overestimation of test results.The result of the D-Dimer test should be evaluated in the context of all the clinical and laboratory data available.In those instances where the laboratory result does not agree with the clinical evaluation, additional tests shouldbe performed accordingly.If the D-Dimer result is used to exclude DVT or PE, the recommended cutoff value is less than 230 ng/mL. The D-Dimerresult should not be used alone to rule in DVT/PE, but should be used in conjunction with a clinical pretest probability (PTP)assessment model to exclude venous thromboembolism (VTE) in outpatients suspected of deep venous thrombosis (DVT) and pulmonary embolism (PE). Performed By: #### C BC, ANEU, MDW, GFR, BMP, TROPHS, DIMER, ADIFF, PBNP ####[place] [address] [place], [place] [address] LABORATORYOrdered By: Mimi Friend on 04-25-2023 Appearance (U) Clear (04/25/23 9:33 PM) Normal Clear AO Auto Urine SS Bilirubin Ql (U) Negative (04/25/23 9:33 PM) Normal Negative AO Auto Urine SS Color (U) Yellow (04/25/23 9:33 PM) Normal AO Auto Urine SS Glucose Test strip (U) [Mass/Vol] Negative Normal Negative AO Auto Urine SS Hemoglobin Auto test strip (U) [Mass/Vol] Trace *ABN* (04/25/23 9:33 PM) Invalid Interpretation Code Negative AO Auto Urine SS Ketones Ql (U) Negative Normal Negative AO Auto Urine SS UA Leuk Est Negative (04/25/23 9:33 PM) Normal Negative AO Auto Urine SS UA Nitrite Negative (04/25/23 9:33 PM) Normal Negative AO Auto Urine SS UA pH 5.5 (04/25/23 9:33 PM) Normal 5.0 - 8.0 AO Auto Urine SS UA Protein 100 mg/dL Invalid Interpretation Code Negative AO Auto Urine SS UA RBC 0-5 /HPF Invalid Interpretation Code None Seen AO Auto Urine SS UA Spec Grav 1.010 *ABN* (04/25/23 9:33 PM) Invalid Interpretation Code 1.015-1.025 AO Auto Urine SS UA Specimen Type Clean Catch (04/25/23 9:33 PM) Normal AO Auto Urine SS UA Squam Epithelial None Seen /HPF Normal None Seen A O Auto Urine SS UA Urobilinogen 0.2 E.U./dL Normal 0.2-1.0 AO Auto Urine SS WBC LM.HPF (Urine sed) [#/Area] None Seen /HPF Normal None Seen AO Auto Urine SS LABORATORYOrdered By: SYSTEM SYSTEM on 04-25-2023 Basophil, Absolute 0.0 103/mcL Normal 0.0 - 0.2 10^3/mcL AO Workflow SS Basophils/100 WBC (Bld) 0.8 % Normal 0.0 - 2.5 % AO Workflow SS Calcium [Mass/Vol] 8.4 mg/dL Normal 8.4 - 10. 2 mg/dL AO ADM SS Chloride [Moles/Vol] 98 mmol/L Normal 98 - 10 7 mmol/L AO ADM SS CO2 [Moles/Vol] 27 mmol/L Normal 22 - 29 mmol/L AO ADM SS Creatinine [Mass/Vol] 1.15 mg/dL Normal 0.70 - 1.30 mg/dL AO ADM SS Electrolyte Balance 10.0 mEq/L Normal 4.0 - 15 .0 mEq/L AO ADM SS Eosinophil, Absolute 0.1 103/mcL Normal 0.0 - 0 .4 10^3/mcL AO Workflow SS Eosinophils/100 WBC (Bld) 1.7 % Normal 0.0 - 7.0 % AO Workflow SS Erythrocyte distribution width (RBC) [Ratio] 13.4 % Normal 11.5 - 14.5 % AO Workflow SS GFR/1.73 sq M.predicted among blacks MDRD (S/P/Bld) [Vol rate/Area] 80 ml/min/1.73sqm Invalid Interpretation Code AO Chemistry S Comment on above: Interpretive Data: GFR Population mean for , Non- Americans Ages 20-29 = 116 mL/min/1.73 sq.m. Ages 30-39 = 107 mL/min/1.73 sq.m. Ages 40-49 = 99 mL/min/1.73 sq.m. Ages 50-59 = 93 mL/min/1.73 sq.m. Ages 60-69 = 85 mL/min/1.73 sq.m. Ages 70+ = 75 mL/min/1.73 sq.m. Chronic Kidney Disease: Less than 60 mL/min/1.73 square meters End Stage Renal Disease: Less than 15 mL/min/1.73 square meters GFR/1.73 sq M.predicted among non-blacks MDRD (S/P/Bld) [Vol rate/Area] 66 ml/min/1.73sqm Invalid Interpretation Code AO Chemistry S Comment on above: Interpretive Data: GFR Population mean for , Non- Americans Ages 20-29 = 116 mL/min/1.73 sq.m. Ages 30-39 = 107 mL/min/1.73 sq.m. Ages 40-49 = 99 mL/min/1.73 sq.m. Ages 50-59 = 93 mL/min/1.73 sq.m. Ages 60-69 = 85 mL/min/1.73 sq.m. Ages 70+ = 75 mL/min/1.73 sq.m. Chronic Kidney Disease: Less than 60 mL/min/1.73 square meters End Stage Renal Disease: Less than 15 mL/min/1.73 square meters Glucose [Mass/Vol] 256 mg/dL High 70 - 105 mg/dL AO ADM SS Hematocrit (Bld) [Volume fraction] 42.2 % Normal 42.0 - 52.0 % AO Workflow SS Hemoglobin (Bld) [Mass/Vol] 14.6 G/dL Normal 14.0 - 18.0 G/dL AO Workflow SS Lymphocyte, Absolute 1.3 103/mcL Normal 0.8 - 3 .9 10^3/mcL AO Workflow SS Lymphocytes/100 WBC (Bld) 23.8 % Normal 10.0 - 50.0 % AO Workflow SS MCH (RBC) [Entitic mass] 31.6 pg High 27.0 - 31.2 pg AO Workflow SS MCHC 34.6 G/dL Normal 31.8 - 35.4 G/dL AO Workflow SS MCV (RBC) [Entitic vol] 91.3 fL Normal 80.0 - 94.0 fL AO Workflow SS Monocyte distribution width Auto (Bld) [Entitic vol] 17.47 1 Normal 0.00 - 20.00 AO Workflow SS Comment on above: Result Comment: For ED adult patients suspected of sepsis, MDW<=20.0 does not rule out sepsis or risk of sepsis Monocyte, Absolute 0.6 103/mcL Normal 0.2 - 1.0 10^3/mcL AO Workflow SS Monocytes/100 WBC (Bld) 9.9 % Normal 1.7 - 13.0 % AO Workflow SS Natriuretic peptide.B prohormone N-Terminal [Mass/Vol] 8033 pg/mL High 0 - 125 pg/mL AO ADM SS Comment on above: Interpretive Data: N T-proBNP results of less than 300 pg/mL effectively rules out acute congestive heart failure with 99% negative predictive value. Neutrophil, Absolute 3.5 103/mcL Normal 2.9 - 6 .2 10^3/mcL AO Workflow SS Neutrophils/100 WBC (Bld) 63.8 % Normal 37.0 - 80.0 % AO Workflow SS Platelet mean volume (Bld) [Entitic vol] 7.2 fL Low 7.4 - 10.4 fL AO Workflow SS Platelets (Bld) [#/Vol] 194 103/mcL Normal 130 - 400 10^3/mcL AO Workflow SS Potassium [Moles/Vol] 4.3 mmol/L Normal 3.5 - 5.1 mmol/L AO ADM SS RBC (Bld) [#/Vol] 4.62 106/mcL Normal 4.04 - 6.1 3 10^6/mcL AO Workflow SS Sodium [Moles/Vol] 135 mmol/L Low 136 - 145 mmol/L AO ADM SS Troponin I.cardiac DL <= 0.01 ng/mL [Mass/Vol] 47.2 ng/L Normal 0.0 - 76.2 ng/L AO ADM SS Urea nitrogen [Mass/Vol] 9 mg/dL Normal 7 - 18 mg/dL AO ADM SS Urea nitrogen/Creatinine [Mass ratio] 8 ratio Normal 7 - 27 ratio AO ADM SS WBC (Bld) [#/Vol] 5.6 103/mcL Normal 4.6 - 10.8 10^3/mcL AO Workflow SS LABORATORYOrdered By: Acacia Hickey on 04-25-2023 Fibrin D-dimer DDU (PPP) [Mass/Vol] 374 ng/mL D-DU High 0 - 230 ng/mL D-DU AO HemoHub SS Comment on above: Result Comment: Resu lts reported in D-DU ng/mL. Positive for D-dimer. A positive D-Dimer may occur in the following: DVT, PE, DIC, Trauma, Cancer, Sepsis, , Rheumatoid arthritis, Myocardial infarction and Cirrhosis. The presence of Rheumatoid Factor and HAMA (human mouse antibody) produces an overestimation of test results. Interpretive Data: T he result of the D-Dimer test should be evaluated in the context of all the clinical and laboratory data available. In those instances where the laboratory result does not agree with the clinical evaluation, additional tests should be performed accordingly. If the D-Dimer result is used to exclude DVT or PE, the recommended cutoff value is less than 230 ng/mL. The D-Dimer result should not be used alone to rule in DVT/PE, but should be used in conjunction with a clinical pretest probability (PTP)assessment model to exclude venous thromboembolism (VTE) in outpatients suspected of deep venous thrombosis (DVT) and pulmonary embolism (PE). PBNPon 04-25-2023 Natriuretic peptide B (Bld) [Mass/Vol] 8033 pg/mL High 0-125 [facility] ([place]) Comment on above: Result Comment: NT-p roBNP results of less than 300 pg/mL effectivelyrules out acute congestive heart failure with 99% negative predictive value. Performed By: #### C IRAJ SHRESTHA MDW, GFR, BMP, TROPHS, DIMER, ADIFF, PBNP ####[place] [address] [place], [place] [address] TROPHSon 04-25-2023 Troponin I High Sensitivity 47.2 ng/L Normal 0.0-76.2 [facility] ([place]) Comment on above: Performed By: #### C IRAJ SHRESTHA MDW, GFR, BMP, TROPHS, DIMER, ADIFF, PBNP ####[place] [address] [place], [place] [address] UAon 04-25-2023 Color (U) Yellow Normal [facility] ([place]) Comment on above: Performed By: #### U AMICAO, UA ####[place] [address] [place], [place] [address] Glucose (U) [Mass/Vol] Negative Normal Negative [facility] ([place]) Comment on above: Performed By: #### U AMICAO, UA ####[place] [address] [place], [place] [address] Ketones Ql (U) Negative Normal Negative [facility] ([place]) Comment on above: Performed By: #### U AMICAO, UA ####[place] [address] [place], [place] [address] UA Appear Clear Normal Clear [facility] ([place]) Comment on above: Performed By: #### U AMICAO, UA ####[place] [address] [place], [place] [address] UA Blood Trace Abnormal Negative [facility] ([place]) Comment on above: Performed By: #### U AMICAO, UA ####[place] [address] [place], [place] [address] UA Leuk Est Negative Normal Negative [facility] ([place]) Comment on above: Performed By: #### U AMICAO, UA ####[place] [address] [place], [place] [address] UA Nitrite Negative Normal Negative [facility] ([place]) Comment on above: Performed By: #### U AMICAO, UA ####[place] [address] [place], [place] [address] UA pH 5.5 Normal 5.0 - 8.0 [facility] ([place]) Comment on above: Performed By: #### U AMICAO, UA ####[place] [address] [place], [place] [address] UA Protein 100 mg/dL Abnormal Negative [facility] ([place]) Comment on above: Performed By: #### U AMICAO, UA ####[place] [address] [place], [place] [address] UA Spec Grav 1.010 Abnormal 1.015-1.025 [facility] ([place]) Comment on above: Performed By: #### U AMICAO, UA ####[place] [address] [place], [place] [address] UA Specimen Type Clean Catch Normal [facility] ([place]) Comment on above: Performed By: #### U AMICAO, UA ####[place] [address] [place], [place] [address] UA Urobilinogen 0.2 E.U./dL Normal 0.2-1.0 [facility] ([place]) Comment on above: Performed By: #### U AMICAO, UA ####[place] [address] [place], [place] [address] Urobilinogen (U) [Mass/Vol] Negative Normal Negative [facility] ([place]) Comment on above: Performed By: #### U AMICAO, UA ####[place] [address] [place], [place] [address] XR CHEST 1 VIEWon 04-25-2023 XR CHEST 1 VIEW Normal [facility] ([place]) XR HIP RIGHT W/PELVIS 4 VIEW Son 01-02-2023 XR HIP RIGHT W/PELVIS 4 VIEWS Normal [facility] ([place]) [facility] Office-Progress Notes-Pr maryuri 08-19-2022 [facility] Office-Progress Notes-Provider Chief Complaint COPD, DM History of Present Illness This is a follow-up visit for Mr. Muir and he has hypertension hyperlipidemia obstructive sleep apnea mild obesity weighing 248 pounds, normal coronary arteries and he is here for follow-up. He seems to be doing reasonably well. His A1c is slightly high around 8. He has neuropathy as well. His vision is good. Denies chest pain jaw pain shoulder pain no shortness of breath. Ejection fraction by ventriculogram was around 64% which is a significant improvement. No history of any exertional dyspnea. Once again I did mention to him about exercise diet and weight loss Physical Exam Vitals & Measurements Systolic Blood Pressure: 134 mmHg (08/14/22 05:05:00) Diastolic Blood Pressure: 78 mmHg (08/14/22 05:05:00) Temperature Temporal (F): 98.1 degF (08/14/22 15:09:00) Apical Heart Rate: 85 bpm (08/14/22 15:09:00) Height/Length Measured: 183 cm (08/14/22 15:09:00) Weight Measured: 112 kg (08/14/22 15:09:00) Body Mass Index Measured: 33.44 kg/m2 (08/14/22 15:09:00) Weight Measured - lbs2: 248 lb (08/14/22 15:09:00) Height/Length Measured - in2: 72 in (08/14/22 15:09:00) Body Mass Index Measured English2: 33.63 kg/m2 (08/14/22 15:09:00) BSA: 2.39 m2 (08/14/22 15:09:00) Ht/Wt Measurement Refused by Patient?2: No (08/14/22 15:09:00) Depression Screening Scores Initial Depression Screen Score: 0 (08/14/22 15:09:00) Fall Risk Assessment Is the patient ambulatory (mobile): Yes (08/14/22 15:09:00) Have you had a fall within the past: No (08/14/22 15:09:00) Have you had 2 or more falls in the past: No (08/14/22 15:09:00) NECK: JVP is not elevated: Good carotid pulses and no bruit CVS; Normal heart sounds. No murmur and no gallop. No rub LUNGS: No rhonchi and no wheeze: Clear breath sounds ADOMEN: Benign EXTREMITIES: Good distal pulses. No edema of legs Assessment/Plan 1. MCKINNEY (dyspnea on exertion) R06.00 :Now resolved 2. Chest pain R07.9 Normal coronaries 3. HTN (hypertension) I10 4. JOHN (obstructive sleep apnea) G47.33 5. HLD (hyperlipidemia) E78.5 6. LV dysfunction I51.9 EF is known to be 45% but now 61% 6. Risk factor modification: advised about diet,exercise and weight loss 7. Continue current medications follow-up in six months 8. Copy to Dr. Ruggiero Problem List/Past Medical History Ongoing Abscess Blepharitis Candidiasis of skin Chest pain COPD (chronic obstructive pulmonary disease) Diabetes MCKINNEY (dyspnea on exertion) Hemoptysis HLD (hyperlipidemia) HTN (hypertension) Hyperglycemia due to type 2 diabetes mellitus Hypertensive disorder Laryngitis Lung nodule seen on imaging study LV dysfunction Obesity JOHN (obstructive sleep apnea) Palpitations PE (pulmonary embolism) RBBB Syncope Syncope VT (ventricular tachycardia) Historical No qualifying data Procedure/Surgical History Left Heart Catheterization, left ventriculogram.: 12/07/21 Medications cyclobenzaprine 10 mg oral tablet, 10 mg= 1 tabs, ORAL, TID, PRN furosemide 20 mg oral tablet, ORAL, DAILY gabapentin 600 mg oral tablet, 600 mg= 1 tabs, ORAL, DAILY glimepiride 2 mg oral tablet, 2 mg= 1 tabs, ORAL, DAILY Lantus, 12 units, Subcutaneous, DAILY lisinopril 20 mg oral tablet, ORAL, DAILY metFORMIN 500 mg oral tablet, 1000 mg= 2 tabs, ORAL, BID rOPINIRole 1 mg oral tablet, 1 mg= 1 tabs simvastatin 10 mg oral tablet, 10 mg, ORAL, QHS Allergies aspirin sodium salicylate (Other: See Comments) Social History Alcohol Current Other Daily Caffeine Use Substance Abuse - Denies Substance Abuse Tobacco Smoker, current status unknown, Cigarettes Family History Anemia..: Mother. Cancer - unknown origin: Father. Diabetes..: Mother. High blood pressure..: Mother. Stroke..: Brother. Care Team Primary Care Physician GUADALUPE RUGGIERO MD Attending Physician SCARLET BROWN, ALYSSA [phone] Normal [facility] Provider Letter - Ambulatory on 08-19-2022 Provider Letter - Ambulatory GUADALUPE RUGGIERO MD [address] [address] RE: YUSEF MUIR - 1965 08/14/2022 Dear GUADALUPE RUGGIERO MD This document is confidential and intended solely for the use of the individual or entity to which they are addressed. If you are not the named addressee, please disregard and do not disseminate, distribute or copy this information. If you are not the intended recipient you are notified that any disclosure of this information and its contents are strictly prohibited. If you have any questions about this document, please contact the office. Sincerely, Jo South MA [facility] The following document(s) were included in the letter: August 14, 2022 05:05:00 EDT - (08/14/2022) *.AMB Office Visit Note Normal [facility] Ambulatory Vitals Height David ght-Texton 08-15-2022 Ambulatory Vitals Height Weight-Text Ambulatory Vitals Height Weight Entered On: 08/15/2022 5:05 EDT Performed On: 08/14/2022 5:05 EDT by ALYSSA BARR MD Vitals/Ht/Wt Systolic Blood Pressure : 134 mmHg Diastolic Blood Pressure : 78 mmHg ALYSSA BARR MD - 08/15/2022 5:05 EDT Normal [facility] Comprehensive Intake - Texto n 08-14-2022 Comprehensive Intake - Text Comprehensive Intake Entered On: 08/14/2022 15:10 EDT Performed On: 08/14/2022 15:09 EDT by Jo South MA Summary Chief Complaint : COPD, DM Bladder Control Issues? : No Urine Leakage? : No Presence or absence of urinary incontinence assessed : Yes CPT-II Medication list doc'd in medical record : Yes Influenza immunization administered or previously received : Yes Pneumococcal vaccine administered or previously received : Yes Jo South MA - 08/14/2022 15:09 EDT Measurements Ht/Wt Measurement Refused by Patient? : No Weight Measured : 112 kg(Converted to: 246 lb 15 oz, 246.918 lb) Height/Length Measured : 183 cm(Converted to: 6 ft 0 in, 72.05 in) Body Mass Index Measured : 33.44 kg/m2 Body Mass Index documented : Yes Weight Measured - lbs : 248 lb(Converted to: 248 lb 0 oz, 112 kg) Height/Length Measured - in : 72 in(Converted to: 6 ft 0 in, 183 cm) Body Mass Index Measured Pakistani : 33.63 kg/m2 BSA Pakistani : 2.39 m2 Jo South MA - 08/14/2022 15:09 EDT Vitals Require BP : No Apical Heart Rate : 85 bpm Temperature Temporal (F) : 98.1 degF(Converted to: 37 degC) Pain Present : No actual or suspected pain Pain : 0 Pain severity quantified : No pain present Jo South MA - 08/14/2022 15:09 EDT Infection Screening - Ambulatory Exposure AND/OR close contact with a person under investigation or laboratory-confirmed COVID-19 individual within 14 days of symptom onset AND/OR any of the following: : No Do you live/work in a high risk situation (congregated living, hemodialysis, infusion clinic, long term, assisted living, long term, homeless jail, etc.)? : No Jo South MA - 08/14/2022 15:09 EDT Depression Screening Is patient currently : None of the Below Feeling Down, Depressed, Hopeless : Not at all Little Interest - Pleasure in Activities : Not at all Initial Depression Screen Score : 0 Depression Screening Score 0 : No Jo South MA - 08/14/2022 15:09 EDT Problems (As Of: 08/14/2022 15:10:51 EDT) Problems(Active) Abscess (SNOMED CT :736712145 ) Name of Problem: Abscess ; Onset Date: 10/26/2015 ; Recorder: Xavi Thayer; Confirmation: Confirmed ; Classification: Medical ; Code: [id number] ; Contributor System: [employer] ; Last Updated: 10/22/2021 09:33 EDT ; Life Cycle Date: 10/22/2021 ; Life Cycle Status: Active ; Responsible Provider: Xavi Thayer; Vocabulary: SNOMED CT Blepharitis (SNOMED CT :78796013 ) Name of Problem: Blepharitis ; Recorder: Xavi Thayer; Confirmation: Confirmed ; Classification: Medical ; Code: [id number] ; Contributor System: [employer] ; Last Updated: 10/22/2021 09:33 EDT ; Life Cycle Date: 10/22/2021 ; Life Cycle Status: Active ; Responsible Provider: Xavi Thayer; Vocabulary: SNOMED CT Candidiasis of skin (SNOMED CT :06548536 ) Name of Problem: Candidiasis of skin ; Recorder: Xavi Thayer; Confirmation: Confirmed ; Classification: Medical ; Code: [id number] ; Contributor System: [employer] [facility] ; Last Updated: 10/22/2021 09:33 EDT ; Life Cycle Date: 10/22/2021 ; Life Cycle Status: Active ; Responsible Provider: Xavi Thayer; Vocabulary: SNOMED CT Chest pain (SNOMED CT :74346864 ) Name of Problem: Chest pain ; Recorder: ALYSSA BARR MD; Confirmation: Confirmed ; Classification: Medical ; Code: [id number] ; Contributor System: [employer] [facility] ; Last Updated: 10/23/2021 09:43 EDT ; Life Cycle Date: 10/23/2021 ; Life Cycle Status: Active ; Responsible Provider: ALYSSA BARR MD; Vocabulary: SNOMED CT COPD (chronic obstructive pulmonary disease) (SNOMED CT :43841028 ) Name of Problem: COPD (chronic obstructive pulmonary disease) ; Recorder: ARABELLA MONTOYA MD; Confirmation: Confirmed ; Classification: Medical ; Code: [id number] ; Contributor System: [employer] [facility] ; Last Updated: 05/27/2014 09:34 EST ; Life Cycle Date: 05/27/2014 ; Life Cycle Status: Active ; Responsible Provider: ARABELLA MONTOYA MD; Vocabulary: SNOMED CT Diabetes (SNOMED CT :215815759 ) Name of Problem: Diabetes ; Recorder: ARABELLA MONTOYA MD; Confirmation: Confirmed ; Classification: Medical ; Code: [id number] ; Contributor System: [employer] [facility] ; Last Updated: 05/27/2014 09:35 EST ; Life Cycle Date: 05/27/2014 ; Life Cycle Status: Active ; Responsible Provider: ARABELLA MONTOYA MD; Vocabulary: SNOMED CT MCKINNEY (dyspnea on exertion) (SNOMED CT :299896530 ) Name of Problem: MCKINNEY (dyspnea on exertion) ; Recorder: ALYSSA BARR MD; Confirmation: Confirmed ; Classification: Medical ; Code: [id number] ; Contributor System: [employer] [facility] ; Last Updated: 10/23/2021 09:43 EDT ; Life Cycle Date: 10/23/2021 ; Life Cycle Status: Active ; Responsible Provider: ALYSSA BARR MD; Vocabulary: SNOMED CT Heart failure, left-sided (SNOMED CT :590135754 ) Name of Problem: Heart failure, left-sided ; Onset Date: 01/12/2014 ; Recorder: Alisson Forrest; Confirmation: Confirmed ; Classification: Patient/Family Stated ; Code: [id number] ; Cont (more content not included)... Normal [facility] Cardiac Catheterization-Repo rton 05-02-2022 Cardiac Catheterization-Repo rt Patient: YUSEF MUIR Jr Age: 56 years Sex: Male : 1965 Associated Diagnoses: None Author: ALYSSA BARR MD LEFT HEART CATHETERIZATION DATE: 12/07/2021 HISTORY/PRE PROCEDURE DIAGNOSIS: 56-year-old man with couplers vessel coronary disease has been having new onset angina and his stress test was abnormal. He is brought in today for elective left heart catheterization PROCEDURE(S) PERFORMED: 1. Left Heart Catheterization 2. Coronary Angiography 3. Left Ventriculography PROCEDURE(S) PERFORMED BY: 1. Alyssa Barr MD ASSISTANTS: None PROCEDURE DESCRIPTION: The patient was brought to the cardiac catheterization suite and reevaluated before beginning procedure. The risks, benefits, rationale and alternatives of the procedure have been discussed with the patient. Informed consent was obtained. The [right] groin was prepped and draped in a sterile fashion. The remainder of the procedure was performed under sterile technique. After adequate sedation, 5 ml of 2% lidocaine was applied to the [right] groin for local anesthesia. Using a single wall puncture technique, the [right] common femoral artery was cannulated without difficulty and a 6-Malagasy introducer sheath was placed. A 5-Malagasy (JL4) catheter was successfully engaged in the left coronary system. A 5-Malagasy (JR4) catheter was successfully engaged in the right coronary artery and the same catheter was used for measurement of left ventricular and aortic pressures (and for performance of the ventriculogram). At the end of the procedure, the wires and catheters were removed with application of manual pressure at the access site and placement of a [Angioseal] device at the arterial access site. There was no residual hematoma or oozing and the patient was transported to the post catheterization recovery area in satisfactory condition. HEMODYNAMICS: 1. Left ventricle: 149/19 mm Hg 2. Central aortic pressure: 151/78 mm Hg 3. There was no significant aortic valve gradient on pullback. CORONARY ANGIOGRAPHY: 1. The left main coronary artery is a normal vessel and it bifurcates into LAD and circumflex artery 2. The left anterior descending coronary artery is a fairly decent size vessel it goes all the way to the apex. It is basically normal. 3. The circumflex coronary artery is a large codominant vessel and it looks normal. It gives a very proximal obtuse marginal branch which almost looks like a ramus and is a normal vessel. 4. The right coronary artery is a dominant vessel and it is normal. VENTRICULOGRAPHY: A single left ventriculogram was performed in the ANGEL 30 projection which revealed normal left ventricular systolic function with an estimated LVEF of 64% with no wall motion abnormalities COMPLICATIONS: No apparent complications. ESTIMATED BLOOD LOSS: 10 mLs blood loss. SPECIMEN: No specimens obtained. CATHETERS/DRAINS: None IMPRESSION/POST PROCEDURE DIAGNOSIS: Normal coronary artery Normal hemodynamics Normal left and the size and function with ejection fraction 64% without any wall motion abnormalities RECOMMENDATIONS: Medical management wrong encounter Normal [facility] Cardiac Catheterization-Repo rt Patient: YUSEF MUIR Jr Age: 56 years Sex: Male : 1965 Associated Diagnoses: None Author: ALYSSA BARR MD * Final Report * Left Heart Catheterization Patient: YUSEF MUIR Jr Age: 56 years Sex: Male : 1965 Associated Diagnoses: None Author: ALYSSA BARR MD LEFT HEART CATHETERIZATION DATE: 12/07/2021 HISTORY/PRE PROCEDURE DIAGNOSIS: 56-year-old man with couplers vessel coronary disease has been having new onset angina and his stress test was abnormal. He is brought in today for elective left heart catheterization PROCEDURE(S) PERFORMED: 1. Left Heart Catheterization 2. Coronary Angiography 3. Left Ventriculography PROCEDURE(S) PERFORMED BY: 1. Alyssa Barr MD ASSISTANTS: None PROCEDURE DESCRIPTION: The patient was brought to the cardiac catheterization suite and reevaluated before beginning procedure. The risks, benefits, rationale and alternatives of the procedure have been discussed with the patient. Informed consent was obtained. The [right] groin was prepped and draped in a sterile fashion. The remainder of the procedure was performed under sterile technique. After adequate sedation, 5 ml of 2% lidocaine was applied to the [right] groin for local anesthesia. Using a single wall puncture technique, the [right] common femoral artery was cannulated without difficulty and a 6-Malagasy introducer sheath was placed. A 5-Malagasy (JL4) catheter was successfully engaged in the left coronary system. A 5-Malagasy (JR4) catheter was successfully engaged in the right coronary artery and the same catheter was used for measurement of left ventricular and aortic pressures (and for performance of the ventriculogram). At the end of the procedure, the wires and catheters were removed with application of manual pressure at the access site and placement of a [Angioseal] device at the arterial access site. There was no residual hematoma or oozing and the patient was transported to the post catheterization recovery area in satisfactory condition. HEMODYNAMICS: 1. Left ventricle: 149/19 mm Hg 2. Central aortic pressure: 151/78 mm Hg 3. There was no significant aortic valve gradient on pullback. CORONARY ANGIOGRAPHY: 1. The left main coronary artery is a normal vessel and it bifurcates into LAD and circumflex artery 2. The left anterior descending coronary artery is a fairly decent size vessel it goes all the way to the apex. It is basically normal. 3. The circumflex coronary artery is a large codominant vessel and it looks normal. It gives a very proximal obtuse marginal branch which almost looks like a ramus and is a normal vessel. 4. The right coronary artery is a dominant vessel and it is normal. VENTRICULOGRAPHY: A single left ventriculogram was performed in the ANGEL 30 projection which revealed normal left ventricular systolic function with an estimated LVEF of 64% with no wall motion abnormalities COMPLICATIONS: No apparent complications. ESTIMATED BLOOD LOSS: 10 mLs blood loss. SPECIMEN: No specimens obtained. CATHETERS/DRAINS: None IMPRESSION/POST PROCEDURE DIAGNOSIS: Normal coronary artery Normal hemodynamics Normal left and the size and function with ejection fraction 64% without any wall motion abnormalities RECOMMENDATIONS: Medical management Signature Line Normal [facility] LABORATORYOrdered By: Aracelis Lima on 11-05-2021 ADMITTED TO INTENSIVE CARE UNIT FOR CONDITION OF INTEREST:FIND:PT:^PA TIENT:ORD: No (11/05/21 7:18 AM) Invalid Interpretation Code AO Auto Urine SS EMPLOYED IN A HEALTHCARE SETTING:FIND:PT:^PAT IENT:ORD: No (11/05/21 7:18 AM) Invalid Interpretation Code AO Auto Urine SS FIRST TEST FOR CONDITION OF INTEREST:FIND:PT:^PA TIENT:ORD: Unknown (11/05/21 7:18 AM) Invalid Interpretation Code AO Auto Urine SS HAS SYMPTOMS RELATED TO CONDITION OF INTEREST:FIND:PT:^PA TIENT:ORD: No (11/05/21 7:18 AM) Invalid Interpretation Code AO Auto Urine SS Illness or injury onset date and time [id number] Invalid Interpretation Code AO Auto Urine SS Patient was hospitalized because of this condition No (11/05/21 7:18 AM) Invalid Interpretation Code AO Auto Urine SS status Not (11/05/21 7:18 AM) Invalid Interpretation Code AO Auto Urine SS RESIDES IN A CONGREGATE CARE SETTING:FIND:PT:^PAT IENT:ORD: Unknown (11/05/21 7:18 AM) Invalid Interpretation Code AO Auto Urine SS SARS-CoV-2 (COVID-19) RNA DESIREE+probe Ql (Unsp spec) Positive results are indicative of the presence of SARS-CoV-2 RNA; clinical correlation with patient history and other diagnostic information is necessary to determine patient infection status. Positive results do not rule out bacterial infection or co-infection with other viruses. The agent detected may not be the definite cause of disease. Laboratories within the [place] and its territories are required to report all positive results to the appropriate public health authorities.Detection of analyte target(s) does not imply that the corresponding virus(es) are infectious or are the causative agents for clinical symptoms.There is a risk of false positive values resulting from cross-contamination by target organisms, their nucleic acids or amplified product, or from non-specific signals in the assay.[employer] SARS-CoV-2 Assay is a Real-Time reverse-transcriptase polymerase chain reaction (RT-PCR) based qualitative in vitro diagnostic test intended for the qualitative detection of nucleic acid from the SARS-CoV-2 in nasopharyngeal swab specimens collected from individuals suspected of COVID-19 by their healthcare provider. Testing is limited to laboratories certified under the Clinical Laboratory Improvement Amendments of 1988 (CLIA), 42 U.S.C. 263a, to perform moderate and high complexity tests. Invalid Interpretation Code AO Auto Urine SS CNTHERAPYon 08-30-2021 CNTHERAPY OT/PT/Speech Visit (PTWS) -------- YUSEF MUIR ([id number]) 1965 [facility] Date Time Provider Department 08/30/21 8:00 AM DANIELA ZENDEJAS Date Time Provider Department [place] 08/30/2021 8:00 AM [id number]-LDANIELA ZENDEJAS PTSELAM [facility] Reason for Visit: PT Discharge [752] Primary Visit Diagnosis:Chronic bilateral low back pain, unspecified whether sciatica present [M54.50, G89.29] Other Visit Diagnosis:Chronic midline low back pain without sciatica [M54.50, G89.29] Allergies As of Date: 08/30/2021 Noted Allergy Reaction ASA (SALICYLATES) 06/11/2011 14 - Other: See Comments Comments: Nose bleeds Date Reviewed: 08/28/2021 Reviewed by: Janessa Moreno DO - Fully Assessed Prescriptions as of 08/30/2021 - furosemide (LASIX) 20 mg tablet Take 20 mg by mouth once daily. - lisinopril (ZESTRIL, PRINIVIL) 20 mg tablet Take 20 mg by mouth once daily. - cephALEXin (KEFLEX) 500 mg capsule Take 500 mg by mouth four times daily. - lidocaine (LIDODERM) 5 % Apply 1 Patch as directed every 12 hours. Remove old patch prior to placing new patch. Location: right thigh - diclofenac (VOLTAREN) 1 % topical gel Apply 2 g to affected area four times daily. - gabapentin (NEURONTIN) 600 mg tablet Take 600 mg by mouth as needed. - rOPINIRole (REQUIP) 1 mg tablet Take 1 mg by mouth daily at bedtime. - cyclobenzaprine (FLEXERIL) 10 mg tablet Take 1 tablet by mouth every 8 hours as needed. - DULoxetine (CYMBALTA) 30 mg capsule Take 30 mg by mouth once daily. - metFORMIN (GLUCOPHAGE) 500 mg tablet Take 2 tablets by mouth twice daily with meals. - FLAXSEED OIL (OMEGA 3 ORAL) Take 1,000 mg by mouth twice daily. - losartan (COZAAR) 100 mg tablet Take 100 mg by mouth once daily. - albuterol HFA (VENTOLIN HFA) 90 mcg/actuation inhaler Inhale 2 Puffs as instructed as needed. - amLODIPine 5 mg tablet Take 5 mg by mouth once daily. - omeprazole 20 mg capsule Take 20 mg by mouth once daily. - glimepiride (AMARYL) 2 mg tablet Take 2 mg by mouth daily with breakfast. - FREESTYLE LITE STRIPS test strip - FREESTYLE FREEDOM LITE monitoring kit - FREESTYLE LANCETS lancets - SIMVASTATIN 10 mg tablet Take 10 mg by mouth daily at bedtime. Meds Comments as of 09/12/2018: Pt takes insulin, Just started and not sure of the type 25units twice daily Pt unable to verify home med doses 09/16/2013 01/30/2016: Patient cites many differences to medications listed. Will need to be verified and updated at next OV. JERRY Allen Pt stating is not taking Januvia, insulin, Lyrica, is taking gabapentin, furosemide 09/12/2018 Emili Tripathi. -------- Normal [facility] CNTHERAPYon 08-27-2021 CNTHERAPY OT/PT/Speech Visit (PTWS) -------- YUSEF MUIR ([id number]) 1965 M [facility] Date Time Provider Department 08/27/21 7:45 AM HUMBERTO HENLEY Date Time Provider Department Center 08/27/2021 7:45 AM [id number]-WARAPEHUMBERTO HENLEY Reason for Visit: Physical Therapy [503] Primary Visit Diagnosis:Chronic bilateral low back pain, unspecified whether sciatica present [M54.50, G89.29] Allergies As of Date: 08/27/2021 Noted Allergy Reaction ASA (SALICYLATES) 06/11/2011 14 - Other: See Comments Comments: Nose bleeds Date Reviewed: 08/22/2021 Reviewed by: Janessa Moreno DO - Fully Assessed Prescriptions as of 08/27/2021 - furosemide (LASIX) 20 mg tablet Take 20 mg by mouth once daily. - lisinopril (ZESTRIL, PRINIVIL) 20 mg tablet Take 20 mg by mouth once daily. - cephALEXin (KEFLEX) 500 mg capsule Take 500 mg by mouth four times daily. - lidocaine (LIDODERM) 5 % Apply 1 Patch as directed every 12 hours. Remove old patch prior to placing new patch. Location: right thigh - diclofenac (VOLTAREN) 1 % topical gel Apply 2 g to affected area four times daily. - gabapentin (NEURONTIN) 600 mg tablet Take 600 mg by mouth as needed. - rOPINIRole (REQUIP) 1 mg tablet Take 1 mg by mouth daily at bedtime. - cyclobenzaprine (FLEXERIL) 10 mg tablet Take 1 tablet by mouth every 8 hours as needed. - DULoxetine (CYMBALTA) 30 mg capsule Take 30 mg by mouth once daily. - metFORMIN (GLUCOPHAGE) 500 mg tablet Take 2 tablets by mouth twice daily with meals. - FLAXSEED OIL (OMEGA 3 ORAL) Take 1,000 mg by mouth twice daily. - losartan (COZAAR) 100 mg tablet Take 100 mg by mouth once daily. - albuterol HFA (VENTOLIN HFA) 90 mcg/actuation inhaler Inhale 2 Puffs as instructed as needed. - amLODIPine 5 mg tablet Take 5 mg by mouth once daily. - omeprazole 20 mg capsule Take 20 mg by mouth once daily. - glimepiride (AMARYL) 2 mg tablet Take 2 mg by mouth daily with breakfast. - FREESTYLE LITE STRIPS test strip - FREESTYLE FREEDOM LITE monitoring kit - FREESTYLE LANCETS lancets - SIMVASTATIN 10 mg tablet Take 10 mg by mouth daily at bedtime. Meds Comments as of 09/12/2018: Pt takes insulin, Just started and not sure of the type 25units twice daily Pt unable to verify home med doses 09/16/2013 01/30/2016: Patient cites many differences to medications listed. Will need to be verified and updated at next OV. JERRY Allen Pt stating is not taking Januvia, insulin, Lyrica, is taking gabapentin, furosemide 09/12/2018 Emili Tripathi -------- Normal [facility] [place] 08-24-2021 NOEN Telephone (GOLDY) -------- YUSEF MUIR ([id number]) 1965 M Homeless Date Time Provider Department 08/24/21 JANESSA MORENO During your visit today, we recorded the following information about you: Kathryn Xavier RN 08/24/2021 1:46 PM Signed Pt calling regardng work paperwork Please call when able Astrid Silvestre 08/24/2021 2:03 PM Signed Called patient. He is needed us to send a doctors note to [facility] at [facility] on [address] He did not know of a fax number, will try to find one. Astrid Silvestre 08/24/2021 2:58 PM Signed Called patient again asking for more information and he happened to be with [facility]. Fax number: [phone] She is asking [facility] note be send as well as supporting documents. Information faxed and confirmation received. Astrid Silvestre Allergies As of Date: 08/24/2021 Noted Allergy Reaction ASA (SALICYLATES) 06/11/2011 14 - Other: See Comments Comments: Nose bleeds Date Reviewed: 08/22/2021 Reviewed by: Janessa Moreno DO - Fully Assessed Reason for Visit: Patient Question [2597] Prescriptions as of 08/24/2021 - furosemide (LASIX) 20 mg tablet Take 20 mg by mouth once daily. - lisinopril (ZESTRIL, PRINIVIL) 20 mg tablet Take 20 mg by mouth once daily. - cephALEXin (KEFLEX) 500 mg capsule Take 500 mg by mouth four times daily. - meloxicam (MOBIC) 15 mg tablet Take 1 tablet by mouth once daily. - lidocaine (LIDODERM) 5 % Apply 1 Patch as directed every 12 hours. Remove old patch prior to placing new patch. Location: right thigh - diclofenac (VOLTAREN) 1 % topical gel Apply 2 g to affected area four times daily. - gabapentin (NEURONTIN) 600 mg tablet Take 600 mg by mouth as needed. - rOPINIRole (REQUIP) 1 mg tablet Take 1 mg by mouth daily at bedtime. - cyclobenzaprine (FLEXERIL) 10 mg tablet Take 1 tablet by mouth every 8 hours as needed. - DULoxetine (CYMBALTA) 30 mg capsule Take 30 mg by mouth once daily. - metFORMIN (GLUCOPHAGE) 500 mg tablet Take 2 tablets by mouth twice daily with meals. - FLAXSEED OIL (OMEGA 3 ORAL) Take 1,000 mg by mouth twice daily. - losartan (COZAAR) 100 mg tablet Take 100 mg by mouth once daily. - albuterol HFA (VENTOLIN HFA) 90 mcg/actuation inhaler Inhale 2 Puffs as instructed as needed. - amLODIPine 5 mg tablet Take 5 mg by mouth once daily. - omeprazole 20 mg capsule Take 20 mg by mouth once daily. - glimepiride (AMARYL) 2 mg tablet Take 2 mg by mouth daily with breakfast. - FREESTYLE LITE STRIPS test strip - FREESTYLE FREEDOM LITE monitoring kit - FREESTYLE LANCETS lancets - SIMVASTATIN 10 mg tablet Take 10 mg by mouth daily at bedtime. Meds Comments as of 09/12/2018: Pt takes insulin, Just started and not sure of the type 25units twice daily Pt unable to verify home med doses 09/16/2013 01/30/2016: Patient cites many differences to medications listed. Will need to be verified and updated at next OV. JERRY Allen Pt stating is not taking Januvia, insulin, Lyrica, is taking gabapentin, furosemide 09/12/2018 Emili Tripathi. Problem List As Of Date 08/24/2021 Noted Resolved JOHN (obstructive sleep apnea) [G47.33] 06/11/2011 Rhinitis [J31.0] 06/11/2011 HTN (hypertension) [I10] 06/11/2011 Diabetes mellitus [E11.9] 06/13/2011 Headache [R51] 07/17/2011 Nasal polyps [J33.9] 07/17/2011 Unspecified sleep apnea [G47.30] 07/19/2011 11/26/2011 Obstructive sleep apnea (adult) (pediatric) [G4*10/03/2011 11/26/2011 Cough [R05.9] 12/11/2011 GERD (gastroesophageal reflux disease) [K21.9] 12/11/2011 Laryngitis [J04.0] 12/11/2011 Foot pain [M79.673] 02/08/2012 Lumbago [M54.50] 03/08/2014 Pain in joint, shoulder region [M25.519] 03/08/2014 Pain in joint, lower leg [M25.569] 03/08/2014 Hemoptysis [R04.2] 06/01/2015 Cellulitis [L03.90] 10/26/2015 Encounter Status:Closed by ASTRID SILVESTRE on 08/24/21 [facility] CNTHERAPYon 08-23-2021 CNTHERAPY OT/PT/Speech Visit (PTWS) -------- YUSEF MUIR ([id number]) 1965 M [facility] Date Time Provider Department 08/23/21 8:00 AM DANIELA ZENDEJAS Date Time Provider Department Center 08/23/2021 8:00 AM [id number]-TDANIELA ZENDEJAS Reason for Visit: Physical Therapy [503] Primary Visit Diagnosis:Chronic midline low back pain without sciatica [M54.50, G89.29] Allergies As of Date: 08/23/2021 Noted Allergy Reaction ASA (SALICYLATES) 06/11/2011 14 - Other: See Comments Comments: Nose bleeds Date Reviewed: 08/22/2021 Reviewed by: Janessa Moreno DO - Fully Assessed Prescriptions as of 08/23/2021 - furosemide (LASIX) 20 mg tablet Take 20 mg by mouth once daily. - lisinopril (ZESTRIL, PRINIVIL) 20 mg tablet Take 20 mg by mouth once daily. - cephALEXin (KEFLEX) 500 mg capsule Take 500 mg by mouth four times daily. - meloxicam (MOBIC) 15 mg tablet Take 1 tablet by mouth once daily. - lidocaine (LIDODERM) 5 % Apply 1 Patch as directed every 12 hours. Remove old patch prior to placing new patch. Location: right thigh - diclofenac (VOLTAREN) 1 % topical gel Apply 2 g to affected area four times daily. - gabapentin (NEURONTIN) 600 mg tablet Take 600 mg by mouth as needed. - rOPINIRole (REQUIP) 1 mg tablet Take 1 mg by mouth daily at bedtime. - cyclobenzaprine (FLEXERIL) 10 mg tablet Take 1 tablet by mouth every 8 hours as needed. - DULoxetine (CYMBALTA) 30 mg capsule Take 30 mg by mouth once daily. - metFORMIN (GLUCOPHAGE) 500 mg tablet Take 2 tablets by mouth twice daily with meals. - FLAXSEED OIL (OMEGA 3 ORAL) Take 1,000 mg by mouth twice daily. - losartan (COZAAR) 100 mg tablet Take 100 mg by mouth once daily. - albuterol HFA (VENTOLIN HFA) 90 mcg/actuation inhaler Inhale 2 Puffs as instructed as needed. - amLODIPine 5 mg tablet Take 5 mg by mouth once daily. - omeprazole 20 mg capsule Take 20 mg by mouth once daily. - glimepiride (AMARYL) 2 mg tablet Take 2 mg by mouth daily with breakfast. - FREESTYLE LITE STRIPS test strip - FREESTYLE FREEDOM LITE monitoring kit - FREESTYLE LANCETS lancets - SIMVASTATIN 10 mg tablet Take 10 mg by mouth daily at bedtime. Meds Comments as of 09/12/2018: Pt takes insulin, Just started and not sure of the type 25units twice daily Pt unable to verify home med doses 09/16/2013 01/30/2016: Patient cites many differences to medications listed. Will need to be verified and updated at next OV. Alejandro RN Pt stating is not taking Januvia, insulin, Lyrica, is taking gabapentin, furosemide 09/12/2018 Emili Tripathi. -------- [facility] CNOVon 08-22-2021 CNOV Office Visit (ORMDNA ) -------- YUSEF MUIR ([id number]) 1965 M Homeless Date Time Provider Department 08/22/21 2:30 PM JANESSA MORENO During your visit today, we recorded the following information about you: Janessa Moreno DO 08/28/2021 2:05 PM Signed Follow Up Visit Chief Complaint Yusef Muir is a 56 year old male who presents today for follow up office visit. Patient presents with: Left Elbow - Follow Up, Pain History of Present Illness PAIN EVALUATION 08/22/2021 1419 Pain Level: 0 Pain Location: Arm-Forearm Left Description: Sore Duration Amount of Time: ? ongoing Frequency: Intermittent Intervention/Comfort measure: Reposition;Relaxation HPI: Yusef Muir is a 56 year old male for a follow up visit left elbow pain. Patient is here to go over CT results. Pain history is noted as above. Denies calf pain, numbness, tingling, fever, chills or other constitutional symptoms. Is there any overall improvement in your condition? No Any new injury, since being seen last: No REVIEW OF SYMPTOMS: Patient did not have, and does not currently have, any weight loss, malaise, fever, chills, headache, chest pain, chest pressure, palpitations, cough, shortness of breath, orthopnea, paroxsymal nocturnal dyspnea, nausea, vomiting, diarrhea, constipation, melena, hematochezia, urinary difficulties, prolonged bleeding, easily bruising, heat or cold intolerance, new onset joint pain or swelling, new onset extremity weakness or numbness, new onset auditory or visual disturbances, lightheadedness, dizziness, partial loss of consciousness or full loss of consciousness. Current Outpatient Medications Medication Sig - furosemide (LASIX) 20 mg tablet Take 20 mg by mouth once daily. - lisinopril (ZESTRIL, PRINIVIL) 20 mg tablet Take 20 mg by mouth once daily. - cephALEXin (KEFLEX) 500 mg capsule Take 500 mg by mouth four times daily. - meloxicam (MOBIC) 15 mg tablet Take 1 tablet by mouth once daily. - lidocaine (LIDODERM) 5 % Apply 1 Patch as directed every 12 hours. Remove old patch prior to placing new patch. Location: right thigh - diclofenac (VOLTAREN) 1 % topical gel Apply 2 g to affected area four times daily. - gabapentin (NEURONTIN) 600 mg tablet Take 600 mg by mouth as needed. - rOPINIRole (REQUIP) 1 mg tablet Take 1 mg by mouth daily at bedtime. - cyclobenzaprine (FLEXERIL) 10 mg tablet Take 1 tablet by mouth every 8 hours as needed. - DULoxetine (CYMBALTA) 30 mg capsule Take 30 mg by mouth once daily. - metFORMIN (GLUCOPHAGE) 500 mg tablet Take 2 tablets by mouth twice daily with meals. - FLAXSEED OIL (OMEGA 3 ORAL) Take 1,000 mg by mouth twice daily. - losartan (COZAAR) 100 mg tablet Take 100 mg by mouth once daily. - albuterol HFA (VENTOLIN HFA) 90 mcg/actuation inhaler Inhale 2 Puffs as instructed as needed. - amLODIPine 5 mg tablet Take 5 mg by mouth once daily. - omeprazole 20 mg capsule Take 20 mg by mouth once daily. - glimepiride (AMARYL) 2 mg tablet Take 2 mg by mouth daily with breakfast. - FREESTYLE LITE STRIPS test strip - FREESTYLE FREEDOM LITE monitoring kit - FREESTYLE LANCETS lancets - SIMVASTATIN 10 mg tablet Take 10 mg by mouth daily at bedtime. No current facility-administered medications for this visit. Physical Exam Vitals: There were no vitals taken for this visit. Psych: Pleasant, good affect and mood General Appearance: Well appearing, alert, in no acute distress, well-hydrated, well nourished.. Skin: Skin color, texture, turgor normal, no suspicious rashes or lesions. Peripheral Pulses: Normal. Neurologic: Gait normal. Reflexes normal and symmetric. Sensation grossly intact.. Lymph Nodes: No cervical lymphadenopathy, No supraclavicular lymphadenopathy, No axillary lymphadenopathy. and No inguinal lymphadenopathy.. Respiratory: No recent pulmonary infection, hemoptysis, chronic cough, or shortness of breath at rest Rheumatologic: Joint deformities: Left elbow pain Left Elbow Exam Comments: Fixed sup/pronxn ; from flex/ex of elbow and wrist Med,uln, rad nerves intact Assessment and Plan Radiographs: I have independently reviewed films and my findings are the same. IMPRESSION: FINDINGS RELATED TO PRIOR DISTAL BICEPS TENDON TEAR AND SURGERY WITH ASSOCIATED OSSIFICATIONS IN THE REGION OF THE DISTAL BICEPS TENDON. DISTAL MOST ASPECT OF THE TENDON IS NOT WELL SEEN. THE SLIGHTLY MORE PROXIMAL ASPECT OF THE TENDON APPEARS TO BE INTACT. 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 OSTEOARTHROSIS OF THE ELBOW JOINT. FRACTURED ENTHESOPHYTE OF UNCERTAIN AGE AT THE TRICEPS INSERTION SITE OF THE ULNA. ENTHESOPHYTES AT THE COMMON FLEXOR AND EXTENSOR TENDON INSERTION SITES ON THE HUMERUS. CALCIFIC TENDINOSIS INVOLVING THE COMMON EXTENSOR TENDONS. NO ACUTE FRACTURE OR DISLOCATION. Transcriptio (more content not included)... [facility] CNTHERAPYon 08-14-2021 CNTHERAPY OT/PT/Speech Visit (PTWS) -------- YUSEF MUIR ([id number]) 1965 M Homeless Date Time Provider Department 08/14/21 7:00 AM HUMBERTO HENLEY PTWS Date Time Provider Department Center 08/14/2021 7:00 AM [id number], NANCY PTWS [facility] Reason for Visit: Physical Therapy [503] Primary Visit Diagnosis:Chronic midline low back pain without sciatica [M54.50, G89.29] Other Visit Diagnosis:Chronic bilateral low back pain, unspecified whether sciatica present [M54.50, G89.29] Allergies As of Date: 08/14/2021 Noted Allergy Reaction ASA (SALICYLATES) 06/11/2011 14 - Other: See Comments Comments: Nose bleeds Date Reviewed: 07/25/2021 Reviewed by: Jaclyn Villanueva Ma - Fully Assessed Prescriptions as of 08/14/2021 - furosemide (LASIX) 20 mg tablet Take 20 mg by mouth once daily. - lisinopril (ZESTRIL, PRINIVIL) 20 mg tablet Take 20 mg by mouth once daily. - cephALEXin (KEFLEX) 500 mg capsule Take 500 mg by mouth four times daily. - meloxicam (MOBIC) 15 mg tablet Take 1 tablet by mouth once daily. - lidocaine (LIDODERM) 5 % Apply 1 Patch as directed every 12 hours. Remove old patch prior to placing new patch. Location: right thigh - diclofenac (VOLTAREN) 1 % topical gel Apply 2 g to affected area four times daily. - gabapentin (NEURONTIN) 600 mg tablet Take 600 mg by mouth as needed. - rOPINIRole (REQUIP) 1 mg tablet Take 1 mg by mouth daily at bedtime. - cyclobenzaprine (FLEXERIL) 10 mg tablet Take 1 tablet by mouth every 8 hours as needed. - DULoxetine (CYMBALTA) 30 mg capsule Take 30 mg by mouth once daily. - metFORMIN (GLUCOPHAGE) 500 mg tablet Take 2 tablets by mouth twice daily with meals. - FLAXSEED OIL (OMEGA 3 ORAL) Take 1,000 mg by mouth twice daily. - losartan (COZAAR) 100 mg tablet Take 100 mg by mouth once daily. - albuterol HFA (VENTOLIN HFA) 90 mcg/actuation inhaler Inhale 2 Puffs as instructed as needed. - amLODIPine 5 mg tablet Take 5 mg by mouth once daily. - omeprazole 20 mg capsule Take 20 mg by mouth once daily. - glimepiride (AMARYL) 2 mg tablet Take 2 mg by mouth daily with breakfast. - FREESTYLE LITE STRIPS test strip - FREESTYLE FREEDOM LITE monitoring kit - FREESTYLE LANCETS lancets - SIMVASTATIN 10 mg tablet Take 10 mg by mouth daily at bedtime. Meds Comments as of 09/12/2018: Pt takes insulin, Just started and not sure of the type 25units twice daily Pt unable to verify home med doses 09/16/2013 01/30/2016: Patient cites many differences to medications listed. Will need to be verified and updated at next OV. JERRY Allen Pt stating is not taking Januvia, insulin, Lyrica, is taking gabapentin, furosemide 09/12/2018 Emili Tripathi. -------- [facility] CNTHERAPYon 08-08-2021 CNTHERAPY OT/PT/Speech Visit (PTWS) -------- YUSEF MUIR ([id number]) 1965 M [facility] Date Time Provider Department 08/08/21 10:00 AM DANIELA ZENDEJAS Date Time Provider Department Center 08/08/2021 10:00 AM [id number] ZENDEJAS Reason for Visit: Physical Therapy [503] Primary Visit Diagnosis:Chronic midline low back pain without sciatica [M54.50, G89.29] Allergies As of Date: 08/08/2021 Noted Allergy Reaction ASA (SALICYLATES) 06/11/2011 14 - Other: See Comments Comments: Nose bleeds Date Reviewed: 07/25/2021 Reviewed by: Jaclyn Villanueva Ma - Fully Assessed Prescriptions as of 08/08/2021 - furosemide (LASIX) 20 mg tablet Take 20 mg by mouth once daily. - lisinopril (ZESTRIL, PRINIVIL) 20 mg tablet Take 20 mg by mouth once daily. - cephALEXin (KEFLEX) 500 mg capsule Take 500 mg by mouth four times daily. - meloxicam (MOBIC) 15 mg tablet Take 1 tablet by mouth once daily. - lidocaine (LIDODERM) 5 % Apply 1 Patch as directed every 12 hours. Remove old patch prior to placing new patch. Location: right thigh - diclofenac (VOLTAREN) 1 % topical gel Apply 2 g to affected area four times daily. - gabapentin (NEURONTIN) 600 mg tablet Take 600 mg by mouth as needed. - rOPINIRole (REQUIP) 1 mg tablet Take 1 mg by mouth daily at bedtime. - cyclobenzaprine (FLEXERIL) 10 mg tablet Take 1 tablet by mouth every 8 hours as needed. - DULoxetine (CYMBALTA) 30 mg capsule Take 30 mg by mouth once daily. - metFORMIN (GLUCOPHAGE) 500 mg tablet Take 2 tablets by mouth twice daily with meals. - FLAXSEED OIL (OMEGA 3 ORAL) Take 1,000 mg by mouth twice daily. - losartan (COZAAR) 100 mg tablet Take 100 mg by mouth once daily. - albuterol HFA (VENTOLIN HFA) 90 mcg/actuation inhaler Inhale 2 Puffs as instructed as needed. - amLODIPine 5 mg tablet Take 5 mg by mouth once daily. - omeprazole 20 mg capsule Take 20 mg by mouth once daily. - glimepiride (AMARYL) 2 mg tablet Take 2 mg by mouth daily with breakfast. - FREESTYLE LITE STRIPS test strip - FREESTYLE FREEDOM LITE monitoring kit - FREESTYLE LANCETS lancets - SIMVASTATIN 10 mg tablet Take 10 mg by mouth daily at bedtime. Meds Comments as of 09/12/2018: Pt takes insulin, Just started and not sure of the type 25units twice daily Pt unable to verify home med doses 09/16/2013 01/30/2016: Patient cites many differences to medications listed. Will need to be verified and updated at next OV. JERRY Allen Pt stating is not taking Januvia, insulin, Lyrica, is taking gabapentin, furosemide 09/12/2018 Emili Tripathi -------- [facility] CNTHERAPYon 08-06-2021 CNTHERAPY OT/PT/Speech Visit (PTWS) -------- YUSEF MUIR ([id number]) 1965 M Homeless Date Time Provider Department 08/06/21 8:30 AM HUMBERTO HENLEY PTWS Date Time Provider Department Center 08/06/2021 8:30 AM [id number], NANCY PTWS [place] Reason for Visit: Physical Therapy [503] Primary Visit Diagnosis:Chronic midline low back pain without sciatica [M54.50, G89.29] Other Visit Diagnosis:Chronic bilateral low back pain, unspecified whether sciatica present [M54.50, G89.29] Allergies As of Date: 08/06/2021 Noted Allergy Reaction ASA (SALICYLATES) 06/11/2011 14 - Other: See Comments Comments: Nose bleeds Date Reviewed: 07/25/2021 Reviewed by: Jaclyn Villanueva Ma - Fully Assessed Prescriptions as of 08/06/2021 - furosemide (LASIX) 20 mg tablet Take 20 mg by mouth once daily. - lisinopril (ZESTRIL, PRINIVIL) 20 mg tablet Take 20 mg by mouth once daily. - cephALEXin (KEFLEX) 500 mg capsule Take 500 mg by mouth four times daily. - meloxicam (MOBIC) 15 mg tablet Take 1 tablet by mouth once daily. - lidocaine (LIDODERM) 5 % Apply 1 Patch as directed every 12 hours. Remove old patch prior to placing new patch. Location: right thigh - diclofenac (VOLTAREN) 1 % topical gel Apply 2 g to affected area four times daily. - gabapentin (NEURONTIN) 600 mg tablet Take 600 mg by mouth as needed. - rOPINIRole (REQUIP) 1 mg tablet Take 1 mg by mouth daily at bedtime. - cyclobenzaprine (FLEXERIL) 10 mg tablet Take 1 tablet by mouth every 8 hours as needed. - DULoxetine (CYMBALTA) 30 mg capsule Take 30 mg by mouth once daily. - metFORMIN (GLUCOPHAGE) 500 mg tablet Take 2 tablets by mouth twice daily with meals. - FLAXSEED OIL (OMEGA 3 ORAL) Take 1,000 mg by mouth twice daily. - losartan (COZAAR) 100 mg tablet Take 100 mg by mouth once daily. - albuterol HFA (VENTOLIN HFA) 90 mcg/actuation inhaler Inhale 2 Puffs as instructed as needed. - amLODIPine 5 mg tablet Take 5 mg by mouth once daily. - omeprazole 20 mg capsule Take 20 mg by mouth once daily. - glimepiride (AMARYL) 2 mg tablet Take 2 mg by mouth daily with breakfast. - FREESTYLE LITE STRIPS test strip - FREESTYLE FREEDOM LITE monitoring kit - FREESTYLE LANCETS lancets - SIMVASTATIN 10 mg tablet Take 10 mg by mouth daily at bedtime. Meds Comments as of 09/12/2018: Pt takes insulin, Just started and not sure of the type 25units twice daily Pt unable to verify home med doses 09/16/2013 01/30/2016: Patient cites many differences to medications listed. Will need to be verified and updated at next OV. JERRY Allen Pt stating is not taking Januvia, insulin, Lyrica, is taking gabapentin, furosemide 09/12/2018 Emili Tripathi -------- [facility] HEALTHon 07-28-2021 ALLIED HEALTH HNO ID: [id number] Author: RT Jessa(Josefa) Service: Radiology Author Type: Technologist Type: Allied Health Filed: 07/28/2021 8:21 AM Note Text: Radiology Service Progress Note PATIENT NAME: Yusef Muir DATE OF SERVICE: July 28, 2021 TIME: 8:20 AM PATIENT IDENTITY VERIFICATION COMPLETED USING TWO (2) IDENTIFIERS: Name and Date of confirmed by patient verbally and Name and Date of confirmed by identification band. FALL SCREENING: Has the patient had 2 falls in the last year or 1 fall with injury or currently using an Ambulatory Assistive Device (Walker, Cane, Wheelchair, Crutches, etc.)? No PATIENT GENDER DATA: Male PATIENT RELEVANT IMPLANT DATA REVIEWED: Not Applicable RADIOLOGY DEPARTMENT: CT; Exam(s) Completed: Upper extremity PERIPHERAL IV DATA: Not applicable SIGNED BY: Chantal Mayfield RT(R) July 28, 2021 8:20 AM [facility] CT ELBOW WO IVCON LTon 07-28 CT ELBOW WO IVCON LT * * *Final Report* * * DATE OF EXAM: Jul 28 2021 8:16AM [facility] [place] [facility] - CT ELBOW WO IVCON LT / PROCEDURE REASON: M89.9-Disorder of bone * * * * Physician Interpretation * * * * LEFT ELBOW CT: CLINICAL HISTORY:Heterotopic ossificans left elbow TECHNIQUE: Noncontrast spiral CT scanning of left elbow was performed in axial plane. Coronal and sagittal reconstructions were obtained from the original data set. COMPARISON:July 13, 2021 and MRI from October 16, 2018 CT Radiation dose: Integrated Dose-length product (DLP) for this visit = 258 mGy*cm. CT Dose Reduction Employed: Automated exposure control (AEC) RESULT:No abnormal ankle joint effusion. No osteochondral lesion of the elbow joint. Osteophyte formation involving the coronoid process of the ulna and osteophyte extending off the sublime tubercle. Ankylosis of the proximal radius and ulna. Ossifications in the region of the distal biceps tendon related to the prior distal biceps tendon tear and surgery. Distal most aspect of the distal biceps tendon is not well seen on this exam. More proximal aspect to the distal biceps tendon appears to be intact. Small fractured enthesophyte at the triceps insertion site on the ulna (series 6 image 32). Small enthesophytes at the common flexor and extensor tendon insertion sites on the humeral epicondyles. Calcific tendinosis involving the common extensor tendon. No acute fracture or dislocation. IMPRESSION: FINDINGS RELATED TO PRIOR DISTAL BICEPS TENDON TEAR AND SURGERY WITH ASSOCIATED OSSIFICATIONS IN THE REGION OF THE DISTAL BICEPS TENDON. DISTAL MOST ASPECT OF THE TENDON IS NOT WELL SEEN. THE SLIGHTLY MORE PROXIMAL ASPECT OF THE TENDON APPEARS TO BE INTACT. 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 OSTEOARTHROSIS OF THE ELBOW JOINT. FRACTURED ENTHESOPHYTE OF UNCERTAIN AGE AT THE TRICEPS INSERTION SITE OF THE ULNA. ENTHESOPHYTES AT THE COMMON FLEXOR AND EXTENSOR TENDON INSERTION SITES ON THE HUMERUS. CALCIFIC TENDINOSIS INVOLVING THE COMMON EXTENSOR TENDONS. NO ACUTE FRACTURE OR DISLOCATION. Switchbox Assembler: MESSI Transcribe Date/Time: Jul 30 2021 9:35A Dictated by : LUCIANA CLARK MD This examination was interpreted and the report reviewed and electronically signed by: LUCIANA CLARK MD on Jul 30 2021 9:52AM EST [id number] [facility] CNTHERAPYon 07-27-2021 CNTHERAPY OT/PT/Speech Visit (PTWS) -------- YUSEF MUIR ([id number]) 1965 M Homeless Date Time Provider Department 07/27/21 2:00 PM DANIELA ZENDEJAS Date Time Provider Department Center 07/27/2021 2:00 PM [id number] ZENDEJAS [facility] Reason for Visit: PT Eval [747] Primary Visit Diagnosis:Chronic midline low back pain without sciatica [M54.50, G89.29] Other Visit Diagnosis:Chronic bilateral low back pain, unspecified whether sciatica present [M54.50, G89.29] Allergies As of Date: 07/27/2021 Noted Allergy Reaction ASA (SALICYLATES) 06/11/2011 14 - Other: See Comments Comments: Nose bleeds Date Reviewed: 07/25/2021 Reviewed by: Jaclyn Villanueva Ma - Fully Assessed Prescriptions as of 07/27/2021 - furosemide (LASIX) 20 mg tablet Take 20 mg by mouth once daily. - lisinopril (ZESTRIL, PRINIVIL) 20 mg tablet Take 20 mg by mouth once daily. - cephALEXin (KEFLEX) 500 mg capsule Take 500 mg by mouth four times daily. - meloxicam (MOBIC) 15 mg tablet Take 1 tablet by mouth once daily. - lidocaine (LIDODERM) 5 % Apply 1 Patch as directed every 12 hours. Remove old patch prior to placing new patch. Location: right thigh - diclofenac (VOLTAREN) 1 % topical gel Apply 2 g to affected area four times daily. - gabapentin (NEURONTIN) 600 mg tablet Take 600 mg by mouth as needed. - rOPINIRole (REQUIP) 1 mg tablet Take 1 mg by mouth daily at bedtime. - cyclobenzaprine (FLEXERIL) 10 mg tablet Take 1 tablet by mouth every 8 hours as needed. - DULoxetine (CYMBALTA) 30 mg capsule Take 30 mg by mouth once daily. - metFORMIN (GLUCOPHAGE) 500 mg tablet Take 2 tablets by mouth twice daily with meals. - FLAXSEED OIL (OMEGA 3 ORAL) Take 1,000 mg by mouth twice daily. - losartan (COZAAR) 100 mg tablet Take 100 mg by mouth once daily. - albuterol HFA (VENTOLIN HFA) 90 mcg/actuation inhaler Inhale 2 Puffs as instructed as needed. - amLODIPine 5 mg tablet Take 5 mg by mouth once daily. - omeprazole 20 mg capsule Take 20 mg by mouth once daily. - glimepiride (AMARYL) 2 mg tablet Take 2 mg by mouth daily with breakfast. - FREESTYLE LITE STRIPS test strip - FREESTYLE FREEDOM LITE monitoring kit - FREESTYLE LANCETS lancets - SIMVASTATIN 10 mg tablet Take 10 mg by mouth daily at bedtime. Meds Comments as of 09/12/2018: Pt takes insulin, Just started and not sure of the type 25units twice daily Pt unable to verify home med doses 09/16/2013 01/30/2016: Patient cites many differences to medications listed. Will need to be verified and updated at next OV. JERRY Allen Pt stating is not taking Januvia, insulin, Lyrica, is taking gabapentin, furosemide 09/12/2018 Emili Tripathi -------- [facility] CNOVon 07-25-2021 CNOV Office Visit (PNMDNA ) -------- YUSEF MUIR ([id number]) 1965 M [facility] Date Time Provider Department 07/25/21 9:00 AM MARY MCNULTY During your visit today, we recorded the following information about you: Pulse Weight Height 88/minute 113.8 kg 1.829 m Mary Mcnulty MD 07/25/2021 10:05 AM Signed [facility] Date: July 25, 2021 - 8:51 AM Yusef Muir is seen in consultation requested by Dr. Janessa Moreno for an opinion regarding chronic lower back pain. My final recommendations will be communicated back to the requesting physician by way of shared medical record or via US mail. Chief Complaint: back pain SUBJECTIVE: Yusef Muir, is a 56 year old male who presents with lower back pain. The pain started years ago, with a history of back injury related to work at a [employer]. He has had recurrence of back pain and is s/p lumbar injection in the past with minimal improvement. The pain onset was gradual over the years. The patient states that the current pain is intermittent and persistent. His pain is located in the bilateral lumbar region and does not radiate.. // The pain is described as burning and sharp. The pain intensity is rated 10. The pain is exacerbated by walking, twisting, flexion, driving/riding in car and entering/exiting a car and relieved by no known factors. Symptoms interfere with physical activity, work, walking, sleeping, sitting, bathing, driving, cooking, household cleaning, lifting and social activities. 100% pain in spine vs 0% (radiating) pain in the extremity. Litigation: No. Worker's Compensation: No. Prior pain treatment has included medications - Lidocaine patches with no relief. TENS unit with no relief. Injections - in [id number] Dr. Moody with no relief. ALLERGIES Allergen Reactions - Asa [Salicylates] Other: See Comments Nose bleeds Current Medications: Pain medications reviewed and reconciled in the medication list: Yes. Current Outpatient Medications Medication Sig - furosemide (LASIX) 20 mg tablet Take 20 mg by mouth once daily. - lisinopril (ZESTRIL, PRINIVIL) 20 mg tablet Take 20 mg by mouth once daily. - cephALEXin (KEFLEX) 500 mg capsule Take 500 mg by mouth four times daily. - rOPINIRole (REQUIP) 1 mg tablet Take 1 mg by mouth daily at bedtime. - cyclobenzaprine (FLEXERIL) 10 mg tablet Take 1 tablet by mouth every 8 hours as needed. - metFORMIN (GLUCOPHAGE) 500 mg tablet Take 2 tablets by mouth twice daily with meals. - glimepiride (AMARYL) 2 mg tablet Take 2 mg by mouth daily with breakfast. - SIMVASTATIN 10 mg tablet Take 10 mg by mouth daily at bedtime. - meloxicam (MOBIC) 15 mg tablet Take 1 tablet by mouth once daily. - lidocaine (LIDODERM) 5 % Apply 1 Patch as directed every 12 hours. Remove old patch prior to placing new patch. Location: right thigh - diclofenac (VOLTAREN) 1 % topical gel Apply 2 g to affected area four times daily. - gabapentin (NEURONTIN) 600 mg tablet Take 600 mg by mouth as needed. - DULoxetine (CYMBALTA) 30 mg capsule Take 30 mg by mouth once daily. - FLAXSEED OIL (OMEGA 3 ORAL) Take 1,000 mg by mouth twice daily. - losartan (COZAAR) 100 mg tablet Take 100 mg by mouth once daily. - albuterol HFA (VENTOLIN HFA) 90 mcg/actuation inhaler Inhale 2 Puffs as instructed as needed. (Patient not taking: Reported on 07/25/2021 ) - amLODIPine 5 mg tablet Take 5 mg by mouth once daily. - omeprazole 20 mg capsule Take 20 mg by mouth once daily. - FREESTYLE LITE STRIPS test strip - FREESTYLE FREEDOM LITE monitoring kit - FREESTYLE LANCETS lancets No current facility-administered medications for this visit. PAST MEDICAL HISTORY Diagnosis Date - Anxiety disorder - Chronic pain - COPD mixed type (HCC) - Diabetes mellitus (HCC) 06/13/2011 - DVT (deep venous thrombosis) (HCC) - HTN (hypertension) 06/11/2011 - Neuropathy - Obstructive sleep apnea - Restless leg syndrome PAST SURGICAL HISTORY Procedure Laterality Date - PAST SURGICAL HISTORY OF 2014 Heart cath - PAST SURGICAL HISTORY OF Right 2001 Right rotator cuff repair by Dr. Persaud - REMOVAL ADENOIDS,PRIMARY,<12 Y/O - REPAIR BICEPS TENDON RUPTURE Bilateral - REPAIR OF KNEE both knees FAMILY HISTORY Problem Relation Age of Onset - Diabetes Mother 45 age65 - COPD Mother - Cancer Father lung Social History: Alcohol Use: Yes (daily, beer) Tobacco Use: 0.5 packs/day, for 2 years. Quit 07/16/1989. 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 [facility] CNPNon 07-24-2021 CNPN Telephone (SPNMED) -------- YUSEF MIUR ([id number]) 1965 [facility] Date Time Provider Department 07/24/21 MARY MCNULTY During your visit today, we recorded the following information about you: Jaclyn Villanueva Ma 07/24/2021 3:10 PM Signed Patient contacted via telephone regarding upcoming NEW patient appointment with Dr. Mcnutly on 07/25/21. Patient informed of the following: This is the [facility] calling regarding your upcoming appointment with Dr. Mcnulty. To avoid a delay in your care, please bring any imaging (such as MRI, CT, XR, etc.) that have been done outside of the [facility] on a disk to be viewed at your appointment. Please be advised that this appointment is a consult only and narcotics will NOT be prescribed. Dr. Mcnulty is primarily an interventional pain management provider. He treats with physical therapy, injections of the spine or joints, and non-narcotic medications. Dr. Mcnulty will not take over and manage any medications that are already being prescribed by another provider. Patient verbalized understanding with no additional questions at this time. Allergies As of Date: 07/24/2021 Noted Allergy Reaction ASA (SALICYLATES) 06/11/2011 14 - Other: See Comments Comments: Nose bleeds Date Reviewed: 07/13/2021 Reviewed by: Janessa Moreno DO - Fully Assessed Reason for Visit: Pre-Visit Notification [Other] Prescriptions as of 07/24/2021 - lidocaine (LIDODERM) 5 % Apply 1 Patch as directed every 12 hours. Remove old patch prior to placing new patch. Location: right thigh - diclofenac (VOLTAREN) 1 % topical gel Apply 2 g to affected area four times daily. - gabapentin (NEURONTIN) 600 mg tablet - rOPINIRole (REQUIP) 1 mg tablet Take by mouth. - cyclobenzaprine (FLEXERIL) 10 mg tablet Take 1 tablet by mouth every 8 hours as needed. - DULoxetine (CYMBALTA) 30 mg capsule Take 30 mg by mouth once daily. - metFORMIN (GLUCOPHAGE) 500 mg tablet Take 2 tablets by mouth twice daily with meals. - FLAXSEED OIL (OMEGA 3 ORAL) Take 1,000 mg by mouth twice daily. - losartan (COZAAR) 100 mg tablet Take 100 mg by mouth once daily. - albuterol HFA (VENTOLIN HFA) 90 mcg/actuation inhaler Inhale 2 Puffs as instructed as needed. - amLODIPine 5 mg tablet Take 5 mg by mouth once daily. - omeprazole 20 mg capsule Take 20 mg by mouth once daily. - GLIMEPIRIDE 4 mg tablet Take 4 mg by mouth twice daily with meals. - FREESTYLE LITE STRIPS test strip - FREESTYLE FREEDOM LITE monitoring kit - FREESTYLE LANCETS lancets - SIMVASTATIN 10 mg tablet Take 10 mg by mouth daily at bedtime. Meds Comments as of 09/12/2018: Pt takes insulin, Just started and not sure of the type 25units twice daily Pt unable to verify home med doses 09/16/2013 01/30/2016: Patient cites many differences to medications listed. Will need to be verified and updated at next OV. JERRY Allen Pt stating is not taking Januvia, insulin, Lyrica, is taking gabapentin, furosemide 09/12/2018 Emili Tripathi Problem List As Of Date 07/24/2021 Noted Resolved JOHN (obstructive sleep apnea) [G47.33] 06/11/2011 Rhinitis [J31.0] 06/11/2011 HTN (hypertension) [I10] 06/11/2011 Diabetes mellitus [E11.9] 06/13/2011 Headache [R51] 07/17/2011 Nasal polyps [J33.9] 07/17/2011 Unspecified sleep apnea [G47.30] 07/19/2011 11/26/2011 Obstructive sleep apnea (adult) (pediatric) [G4*10/03/2011 11/26/2011 Cough [R05.9] 12/11/2011 GERD (gastroesophageal reflux disease) [K21.9] 12/11/2011 Laryngitis [J04.0] 12/11/2011 Foot pain [M79.673] 02/08/2012 Lumbago [M54.50] 03/08/2014 Pain in joint, shoulder region [M25.519] 03/08/2014 Pain in joint, lower leg [M25.569] 03/08/2014 Hemoptysis [R04.2] 06/01/2015 Cellulitis [L03.90] 10/26/2015 Encounter Status:Closed by JACLYN VILLANUEVA MA on 07/24/21 [facility] 07-13-2021 CNOV Office Visit (ORNA ) -------- YUSEF MUIR ([id number]) 1965 M Homeless Date Time Provider Department 07/13/21 9:45 AM JANESSA MORENO During your visit today, we recorded the following information about you: Janessa Moreno DO 07/13/2021 10:58 AM Signed Reason for Visit/Chief Complaint Yusef Cherrydebo is a 56 year old male who presents today for a new evaluation of following complaint: Patient presents with: Left Wrist - New, Pain, Swelling Left Elbow - New, Pain, Swelling History of Present Illness: PAIN EVALUATION 07/13/2021 1010 Pain Level: 3 Pain Location: Arm-Forearm Left Description: Aching;Dull;Sore;Stiffne ss Duration Amount of Time: 3 Duration Units: Years Frequency: Intermittent Intervention/Comfort measure: Reposition;Relaxation;Me dication;Heat HPI: Yusef Muir is a 56 year old male presenting today with left elbow and wrist pain. Had a previous surgery in 2019 on distal biceps tendon. After surgery he fractures elbow and wrist and could not be casted due to surgery. Now has trouble with rotation at the elbow. Pain history is noted as above. Denies numbness, tingling, fever, chills or other constitutional symptoms.RHD Previous Treatments: Ice: No Heat: Yes Brace: No NSAIDs: No Injections: No Surgeries: Yes, stated above Physical Therapy: No Review of Systems: Patient did not have, and does not currently have, any weight loss, malaise, fever, chills, headache, chest pain, chest pressure, palpitations, cough, shortness of breath, orthopnea, paroxsymal nocturnal dyspnea, nausea, vomiting, diarrhea, constipation, melena, hematochezia, urinary difficulties, prolonged bleeding, easily bruising, heat or cold intolerance, new onset joint pain or swelling, new onset extremity weakness or numbness, new onset auditory or visual disturbances, lightheadedness, dizziness, partial loss of consciousness or full loss of consciousness. Current Outpatient Medications on File Prior to Visit Medication Sig - lidocaine (LIDODERM) 5 % Apply 1 Patch as directed every 12 hours. Remove old patch prior to placing new patch. Location: right thigh - diclofenac (VOLTAREN) 1 % topical gel Apply 2 g to affected area four times daily. - gabapentin (NEURONTIN) 600 mg tablet - rOPINIRole (REQUIP) 1 mg tablet Take by mouth. - cyclobenzaprine (FLEXERIL) 10 mg tablet Take 1 tablet by mouth every 8 hours as needed. - DULoxetine (CYMBALTA) 30 mg capsule Take 30 mg by mouth once daily. - metFORMIN (GLUCOPHAGE) 500 mg tablet Take 2 tablets by mouth twice daily with meals. - FLAXSEED OIL (OMEGA 3 ORAL) Take 1,000 mg by mouth twice daily. - losartan (COZAAR) 100 mg tablet Take 100 mg by mouth once daily. - albuterol HFA (VENTOLIN HFA) 90 mcg/actuation inhaler Inhale 2 Puffs as instructed as needed. - amLODIPine 5 mg tablet Take 5 mg by mouth once daily. - omeprazole 20 mg capsule Take 20 mg by mouth once daily. - GLIMEPIRIDE 4 mg tablet Take 4 mg by mouth twice daily with meals. - FREESTYLE LITE STRIPS test strip - FREESTYLE FREEDOM LITE monitoring kit - FREESTYLE LANCETS lancets - SIMVASTATIN 10 mg tablet Take 10 mg by mouth daily at bedtime. No current facility-administered medications on file prior to visit. ALLERGIES Allergen Reactions - Asa [Salicylates] Other: See Comments Nose bleeds Physical Exam: Vitals: There were no vitals taken for this visit. Psych: Pleasant, good affect and mood General Appearance: Well appearing, alert, in no acute distress, well-hydrated, well nourished.. Skin: Skin color, texture, turgor normal, no suspicious rashes or lesions. Peripheral Pulses: Normal. Neurologic: Gait normal. Reflexes normal and symmetric. Sensation grossly intact.. Lymph Nodes: No cervical lymphadenopathy, No supraclavicular lymphadenopathy, No axillary lymphadenopathy. and No inguinal lymphadenopathy.. Respiratory: No recent pulmonary infection, hemoptysis, chronic cough, or shortness of breath at rest Rheumatologic: Joint deformities: Left elbow and wrist pain Right Elbow Exam Right elbow exam is normal. Tenderness The patient is experiencing no tenderness. Range of Motion Extension: normal Flexion: normal Pronation: normal Supination: normal Muscle Strength Pronation: 5/5 Supination: 5/5 Other Erythema: absent Sensation: normal Pulse: present Left Elbow Exam Tenderness Left elbow tenderness location: druj. Range of Motion Extension: normal Flexion: normal Pronation: abnormal Supination: abnormal Other Erythema: absent Sensation: normal Pulse: present Comments: Neutral 90/90 no supination/pronation: fixed Imaging: Last XR Elbow - Impression Only XR ELBOW SPECIAL VIEWS AP/LAT/OTHER LEFT Exam End: 07/13/2021 9:57 AM (Final result) Impression: IMPRESSION: Findings likely related to prior biceps tendo (more content not included)... Normal [facility] 07-13-2021 CNPN Telephone (SPNMED) -------- YUSEF MUIR ([id number]) 1965 M Homeless Date Time Provider Department 07/13/21 MARY MCNULTY SPNMED During your visit today, we recorded the following information about you: Guadalupe Zepeda 07/13/2021 11:[address] Moreno referred patient to Spine department for LBP. We did not have order when patient left. We scheduled appointment and called and LEFT MESSAGE for patient providing the appointment information. Asked the patient to call office back to confirm receiving message. Gui Trammell [facility] 07/16/2021 5:57 PM Signed I called and spoke with Chi, he will be at the appointment and did advise he will need his [employer] paperwork signed that he was at the appointment. Allergies As of Date: 07/13/2021 Noted Allergy Reaction ASA (SALICYLATES) 06/11/2011 14 - Other: See Comments Comments: Nose bleeds Date Reviewed: 07/13/2021 Reviewed by: Janessa Moreno DO - Fully Assessed Reason for Visit: LMTCB [1226] Prescriptions as of 07/16/2021 - lidocaine (LIDODERM) 5 % Apply 1 Patch as directed every 12 hours. Remove old patch prior to placing new patch. Location: right thigh - diclofenac (VOLTAREN) 1 % topical gel Apply 2 g to affected area four times daily. - gabapentin (NEURONTIN) 600 mg tablet - rOPINIRole (REQUIP) 1 mg tablet Take by mouth. - cyclobenzaprine (FLEXERIL) 10 mg tablet Take 1 tablet by mouth every 8 hours as needed. - DULoxetine (CYMBALTA) 30 mg capsule Take 30 mg by mouth once daily. - metFORMIN (GLUCOPHAGE) 500 mg tablet Take 2 tablets by mouth twice daily with meals. - FLAXSEED OIL (OMEGA 3 ORAL) Take 1,000 mg by mouth twice daily. - losartan (COZAAR) 100 mg tablet Take 100 mg by mouth once daily. - albuterol HFA (VENTOLIN HFA) 90 mcg/actuation inhaler Inhale 2 Puffs as instructed as needed. - amLODIPine 5 mg tablet Take 5 mg by mouth once daily. - omeprazole 20 mg capsule Take 20 mg by mouth once daily. - GLIMEPIRIDE 4 mg tablet Take 4 mg by mouth twice daily with meals. - FREESTYLE LITE STRIPS test strip - FREESTYLE FREEDOM LITE monitoring kit - FREESTYLE LANCETS lancets - SIMVASTATIN 10 mg tablet Take 10 mg by mouth daily at bedtime. Meds Comments as of 09/12/2018: Pt takes insulin, Just started and not sure of the type 25units twice daily Pt unable to verify home med doses 09/16/2013 01/30/2016: Patient cites many differences to medications listed. Will need to be verified and updated at next OV. JERRY Allen Pt stating is not taking Januvia, insulin, Lyrica, is taking gabapentin, furosemide 09/12/2018 Emili Tripathi Problem List As Of Date 07/13/2021 Noted Resolved JOHN (obstructive sleep apnea) [G47.33] 06/11/2011 Rhinitis [J31.0] 06/11/2011 HTN (hypertension) [I10] 06/11/2011 Diabetes mellitus [E11.9] 06/13/2011 Headache [R51] 07/17/2011 Nasal polyps [J33.9] 07/17/2011 Unspecified sleep apnea [G47.30] 07/19/2011 11/26/2011 Obstructive sleep apnea (adult) (pediatric) [G4*10/03/2011 11/26/2011 Cough [R05.9] 12/11/2011 GERD (gastroesophageal reflux disease) [K21.9] 12/11/2011 Laryngitis [J04.0] 12/11/2011 Foot pain [M79.673] 02/08/2012 Lumbago [M54.50] 03/08/2014 Pain in joint, shoulder region [M25.519] 03/08/2014 Pain in joint, lower leg [M25.569] 03/08/2014 Hemoptysis [R04.2] 06/01/2015 Cellulitis [L03.90] 10/26/2015 Encounter Status:Closed by GUI BAXTER on 07/16/21 Normal [facility] No Panel Informationon 07-13 [facility] XR ELBOW 3V AP/LAT/OTHER LTo n 07-13-2021 XR ELBOW 3V AP/LAT/OTHER LT * * *Final Report* * * DATE OF EXAM: Jul 13 2021 9:57AM RASHI [id number] - XR ELBOW 3V AP/LAT/OTHER LT / PROCEDURE REASON: [id number] * * * * Physician Interpretation * * * * Left elbow radiographs HISTORY: 56 years old Clinical information: Pain Left elbow pain with limited mobility. Previous fracture. TECHNIQUE: Images: XR ELBOW 3V AP/LAT/OTHER LT Comparison: 12/05/2018 RESULT: Findings: Heterotopic ossifications in the region of the distal biceps tendon possibly related to prior biceps tendon tear. Bony bridge extending between the proximal radius and ulna. Associated area of soft tissue swelling seen on the lateral radiograph. Osteophyte formation involving the coronoid process of the ulna. Osteophyte formation involving the ulna subjacent to the medial joint space. Enthesophyte at the triceps insertion site on the ulna. No acute fracture or dislocation. Heterotopic ossification involving the common extensor tendon. No joint effusion. IMPRESSION: Findings likely related to prior biceps tendon tear. Heterotopic ossifications are seen in the region of the distal biceps tendon with associated soft tissue swelling/prominence. There is increased heterotopic ossification in this region when compared to the 2019 exam. Bony bridging extending between the proximal radius and ulna are likely related to prior trauma. Osteoarthrosis of the elbow. Switchbox Assembler: PSC[facility] Transcribe Date/Time: Jul 13 2021 10:14A Dictated by : LUCIANA CLARK MD This examination was interpreted and the report reviewed and electronically signed by: LUCIANA CLARK MD on Jul 13 2021 10:18AM EST [id number] [facility] XR WRIST 3V PA/LAT/OBL LTon 07-13-2021 XR WRIST 3V PA/LAT/OBL LT * * *Final Report* * * DATE OF EXAM: Jul 13 2021 9:57AM RASHI [id number] - XR WRIST 3V PA/LAT/OBL LT / PROCEDURE REASON: [id number] * * * * Physician Interpretation * * * * EXAM: XR WRIST 3V PA/LAT/OBL LT HISTORY: Left wrist pain. VIEWS: PA, oblique and lateral left wrist. COMPARISON: 12/05/2018. FINDINGS: No dislocation or acute fracture. Narrowed distal radioulnar joint spaces with osteophytes. Maintained radiocarpal joint space. Severe first carpometacarpal joint space narrowing with radial subluxation, subchondral cysts, osteophytes and ossified bodies. 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 Switchbox Assembler: MESSI Transcribe Date/Time: Jul 13 2021 10:34A Dictated by : Ade ZUNIGA MD This examination was interpreted and the report reviewed and electronically signed by: Ade ZUNIGA MD on Jul 13 2021 10:37AM EST [id number] [facility] XR CHEST 2V FRONTAL/LATon XR CHEST 2V FRONTAL/LAT * * *Final Report* * * DATE OF EXAM: Dec 04 2020 10:51AM RASHI 5291 - XR CHEST 2V FRONTAL/LAT / PROCEDURE REASON: R04.2 HEMOPTYSIS * * * * Physician Interpretation * * * * EXAMINATION: CHEST RADIOGRAPH (2 VIEW FRONTAL and LATERAL) CLINICAL HISTORY: R04.2 HEMOPTYSIS MQ: [id number] EXAM DATE/TIME: 12/04/2020 10:51 AM COMPARISON: 07/18/2018 RESULT: The heart is stable in size. There is no jia pulmonary consolidation, pleural effusion, pneumothorax, or pulmonary vascular redistribution. There is scoliosis and multilevel degenerative change seen within the thoracic spine. 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 IMPRESSION: No significant interval change in radiographic appearance of the chest. No acute pulmonary process is identified. 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 CLINICAL INFORMATION: Pain. FINDINGS: 2 views of the left forearm from the wrist to the elbow were compared to the prior study 09/16/2018 and 12/16/2018. The bones are well-mineralized. There is no evidence of fracture or dislocation. There is heterotopic calcification adjacent to the proximal radius and ulna. The patient had prior surgery 10/23 on the biceps tendon. These findings could be resultant from that with residual calcified hematoma. Report Dictated on Final Dictated: 01/30/2019 1:25 pm Dictating Physician: MD GORDON RISA Signed Date and Time: 01/30/2019 1:30 pm Signed by: MD GORDON RISA Transcribed Date and Time: 01/30/2019 1:25 Normal [facility] XR RADIUS ULNA LEFT (2 VIEWS )on 01-30-2019 Patient Name: YUSEF ANGULO Jr ---Diagnostic Radiology--- Exam Date/Time 01/30/2019 13:13:15 EDT Exam CR Forearm 2 Views Left Ordering Physician [id number] LOUISA CHOUDHURY Accession Number [id number] CPT4 Codes 61849 () Reason For Exam pain Report Left forearm: 01/30/2019. CLINICAL INFORMATION: Pain. FINDINGS: 2 views of the left forearm from the wrist to the elbow were compared to the prior study 09/16/2018 and 12/16/2018. The bones are well-mineralized. There is no evidence of fracture or dislocation. There is heterotopic calcification adjacent to the proximal radius and ulna. The patient had prior surgery 10/23 on the biceps tendon. These findings could be resultant from that with residual calcified hematoma. Report Dictated on --- Final --- Dictated: 01/30/2019 1:25 pm Dictating Physician: MD GORDON RISA Signed Date and Time: 01/30/2019 1:30 pm Signed by: MD GORDON RISA Transcribed Date and Time: 01/30/2019 1:25 [place], [place] [facility] Incoming Radiology Results From [facility] - 01/30/2019 1:31 PM EDT Patient Name: YUSEF MUIR Jr ---Diagnostic Radiology--- Exam Date/Time 01/30/2019 13:13:15 EDT Exam CR Forearm 2 Views Left Ordering Physician [id number] -LOUISA CRISTOBAL Accession Number [id number] CPT4 Codes 07165 () Reason For Exam pain Report Left forearm: 01/30/2019. CLINICAL INFORMATION: Pain. FINDINGS: 2 views of the left forearm from the wrist to the elbow were compared to the prior study 09/16/2018 and 12/16/2018. The bones are well-mineralized. There is no evidence of fracture or dislocation. There is heterotopic calcification adjacent to the proximal radius and ulna. The patient had prior surgery 10/23 on the biceps tendon. These findings could be resultant from that with residual calcified hematoma. Report Dictated on --- Final --- Dictated: 01/30/2019 1:25 pm Dictating Physician: MD GORDON RISA Signed Date and Time: 01/30/2019 1:30 pm Signed by: MD GORDON RISA Transcribed Date and Time: 01/30/2019 1:25 [place], [place] Herpes Simplex Vir PCRon Herpes Simplex Vir PCR HERPES SIMPLEX VIRUS by PCR --> Status: F NEGATIVE: No Herpes simplex virus type 1 or type 2 DNA detected. - Method: PCR amplification with fluorescent probe detection using [employer] ASR HSV reagents from [employer]. The sensitivity is 5 copies/uL for HSV1 and 5 copies/uL for HSV2. - Comment: This test was developed and its performance determined by [facility]. It has not been cleared or approved by the U.S. Food and Drug Administration. The FDA has determined that such clearance or approval is not necessary. This test is used for clinical purposes. It should not be regarded as investigational or for research. Pursuant to the requirements of CLIA '88, this laboratory has established and verified the test's accuracy and precision. detected. - Method: PCR amplification with fluorescent probe detection using [employer] ASR HSV reagents from [employer]. The sensitivity is 5 copies/uL for HSV1 and 5 copies/uL for HSV2. - Comment: This test was developed and its performance determined by [facility] [place]. It has not been cleared or approved by the U.S. Food and Drug Administration. The FDA has determined that such clearance or approval is not necessary. This test is used for clinical purposes. It should not be regarded as investigational or for research. Pursuant to the requirements of CLIA '88, this laboratory has established and verified the test's accuracy and precision. --> Status: F . Normal [facility] Comment on above: Order Comment: [facility] =[facility]PV [facility] = Performed By: #### H SVPC ####[address] [place], [place] Basic Metabolic Panelon 12-07 Creatinine [Mass/Vol] 1.13 mg/dL Normal 0.52-1.25 [facility] Comment on above: Performed By: #### H EMDF, BMP3 ####[address] [place] [address]#### RPR, HIV4 ####[address] [place], [place] GFR/1.73 sq M predicted among blacks MDRD (S/P/Bld) [Vol rate/Area] mL/min/{1.73_m2} Normal >60 [facility] Comment on above: Performed By: #### H EMDF, BMP3 ####[address] [place] [address]#### RPR, HIV4 ####[address] [place] [address] GFR/1.73 sq M predicted among non-blacks MDRD (S/P/Bld) [Vol rate/Area] mL/min/{1.73_m2} Normal >60 [facility] Comment on above: Result Comment: Sour ce- MDRD equation with creatinine calibration to IDMS(NKDEP) eGFR not recommended for drug dose adjustment Performed By: #### H EMDF, BMP3 ####[address] [place] [address]#### RPR, HIV4 ####[place] [address] [place] [address] Anion gap [Moles/Vol] 15 Normal [facility] Comment on above: Performed By: #### H EMDF, BMP3 ####[address] [place] [address]#### RPR, HIV4 ####[place] [address] [place] [address] Calcium [Mass/Vol] 9.4 mg/dL Normal 8.4-10.4 [facility] Comment on above: Performed By: #### H EMDF, BMP3 ####[address] [place] [address]#### RPR, HIV4 ####[place] [address] [place] [address] CO2 [Moles/Vol] 24 mmol/L Normal 22-30 [facility] Comment on above: Performed By: #### H EMDF, BMP3 ####[address] [place] [address]#### RPR, HIV4 ####[place] [address] [facility] [place] [address] Glucose [Mass/Vol] 290 mg/dL High 70-100 [facility] Comment on above: Performed By: #### H EMDF, BMP3 ####[address] [place] [address]#### RPR, HIV4 ####[place] [address] [facility] [place] [address] Urea nitrogen [Mass/Vol] 20 mg/dL Normal 7-20 [facility] Comment on above: Performed By: #### H EMDF, BMP3 ####[address] [place] [address]#### RPR, HIV4 ####[address] [place] [address] Potassium [Moles/Vol] 4.4 mmol/L Normal 3.5-5.1 [facility] Comment on above: Performed By: #### H EMDF, BMP3 ####[address] [place] [address]#### RPR, HIV4 ####[address] [place] [address] Sodium [Moles/Vol] 137 mmol/L Normal 135-145 [facility] Comment on above: Performed By: #### H EMDF, BMP3 ####[address] [place] [address]#### RPR, HIV4 ####[address] [place] [address] Chloride [Moles/Vol] 99 mmol/L Normal 98-107 [facility] Comment on above: Performed By: #### H EMDF, BMP3 ####[address] [place] [address]#### RPR, HIV4 ####[address] [place] [address] Chlamydia and GC PCR Panelon 12-30-2018 Chlamydia and GC PCR Panel Chlamydia trachomatis PCR --> Status: F NOT Detected Chlamydia trachomatis Nucleic Acid NOT Detected by DNA Amplification using the [employer] System. Culture is the only recommended test in medical-legal cases such as suspected child abuse or molestation. Chlamydia trachomatis Nucleic Acid NOT Detected by DNA Amplification using the [employer] System. Culture is the only recommended test in medical-legal cases such as suspected child abuse or molestation. Neisseria gonorrhoeae PCR --> Status: F NOT Detected Neisseria gonorrhoeae Nucleic Acid NOT Detected by DNA Amplification using the [employer] System. Culture is the only recommended test in medical-legal cases such as suspected child abuse or molestation. Neisseria gonorrhoeae Nucleic Acid NOT Detected by DNA Amplification using the [employer] System. Culture is the only recommended test in medical-legal cases such as suspected child abuse or molestation. Normal [facility] Comment on above: Order Comment: Speci men Source Comment:Urine voided Performed By: #### C TNGP ####[facility] [place] [address] Complete Urinalysison 2018 Bacteria LM.HPF (Urine sed) [#/Area] Few (1-5) Normal [facility] Comment on above: Result Comment: Refe rence Range: Negative Performed By: #### C UA2 ####[facility] [place] [address] RBC LM.HPF (Urine sed) [#/Area] Negative Normal [facility] Comment on above: Result Comment: Refe rence Range: 0-2 Performed By: #### C UA2 ####[facility] [place] [address] Squamous Epithelial 0 - 2 Normal [facility] Comment on above: Result Comment: Refe rence Range: 3-5 Performed By: #### C UA2 ####[facility] [place] [address] VOLUME, URINE 12 ml Normal [facility] Comment on above: Performed By: #### C UA2 ####[facility] [place] [address] WBC LM.HPF (Urine sed) [#/Area] 3 - 5 Normal [facility] Comment on above: Result Comment: Refe rence Range: 0-5 Performed By: #### C UA2 ####[facility] [place] [address] Appearance (U) Clear Normal [facility] Comment on above: Result Comment: Refe rence Range: Clear Performed By: #### C UA2 ####[facility] [place] [address] Bilirubin,Urine Negative Normal [facility] Comment on above: Result Comment: Refe rence Range: Negative Performed By: #### C UA2 ####[facility] [place] [address] Color (U) LIGHT YELLOW Normal [facility] Comment on above: Result Comment: Refe rence Range: Lt. Yellow Performed By: #### C UA2 ####[facility] [place] [address] Glucose Ql (U) > 1,000 Normal [facility] Comment on above: Result Comment: Refe rence Range: Normal (<70) Performed By: #### C UA2 ####[facility] [place] [address] Ketone,Urine Trace Normal [facility] Comment on above: Result Comment: Refe rence Range: Negative Performed By: #### C UA2 ####[facility] [place] [address] Leukocytes,Urine 250 Shekhar/uL Normal [facility] Comment on above: Result Comment: Refe rence Range: Negative Performed By: #### C UA2 ####[facility] [place] [address] Nitrites,Urine Negative Normal [facility] Comment on above: Result Comment: Refe rence Range: Negative Performed By: #### C UA2 ####[facility] [place] [address] Occult Blood,Urine Negative Normal [facility] Comment on above: Result Comment: Refe rence Range: Negative Performed By: #### C UA2 ####[facility] [place] [address] pH (U) 5.5 Normal 5.0-8.0 [facility] Comment on above: Performed By: #### C UA2 ####[facility] [place] [address] Protein (U) [Mass/Vol] Negative Normal [facility] Comment on above: Result Comment: Refe rence Range: Negative Performed By: #### C UA2 ####[facility] [place] [address] Specific [place],Urine 1.009 Normal 1.005-1.030 [facility] Comment on above: Performed By: #### C UA2 ####[address] [place] [address] Urobilinogen,Urine Normal Normal [facility] Comment on above: Result Comment: Refe rence Range: Normal (0-1) Performed By: #### C UA2 ####[address] [place] [address] HIV 1,2 Ab; p24 Agon 019 HIV 1,2 Ab; p24 Ag NONREACTIVE Normal Nonreactive [facility] Comment on above: Result Comment: Resu lts obtained using the FDA cleared 4th generation HIV test. This test detects antibodies to HIV1, HIV2, HIV Group O, and the presence of the HIV-1 p24 antigen. A Non-Reactive re- sult indicates the patient is negative for both HIV antibody and HIV p24 antigen. All reactive results will undergo reflex confirmation testing at an additional charge. Performed By: #### H ABDIEL BMP3 ####[address] [place] [address]#### RPR, HIV4 ####[address] [id number] Hemogram w/ Autodiffon 12-30 Abs Baso Cnt 0.1 10*3/uL Normal 0.0-0.2 [facility] Comment on above: Performed By: #### H ABDIEL BMP3 ####[address] [place] [address]#### RPR, HIV4 ####[address] [address] Abs Neutrophile Cnt 5.6 10*3/uL Normal 1.8-7.0 [facility] Comment on above: Performed By: #### H ABDIEL BMP3 ####[address] [place] [address]#### RPR, HIV4 ####[address] [address] Basophils/100 WBC (Bld) 1.1 % Normal 0.0-2.0 [facility] Comment on above: Performed By: #### H EMDF, BMP3 ####[address] [place] [address]#### RPR, HIV4 ####[address] Eosinophils (Bld) [#/Vol] 0.2 10*3/uL Normal 0.0-0.5 [facility] Comment on above: Performed By: #### H EMDF, BMP3 ####[address] [place] [address]#### RPR, HIV4 ####[address] Eosinophils/100 WBC (Bld) 2.1 % Normal 1.0-6.0 [facility] Comment on above: Performed By: #### H EMDF, BMP3 ####[address] [place] [address]#### RPR, HIV4 ####[address] Erythrocyte distribution width (RBC) [Ratio] 12.7 % Normal 11.5-14.5 [facility] Comment on above: Performed By: #### H EMDF, BMP3 ####[address] [place] [address]#### RPR, HIV4 ####[address] Granulocytes/100 WBC (Bld) 62.2 % Normal 40.0-80.0 [facility] Comment on above: Performed By: #### H EMDF, BMP3 ####[address] [place] [address]#### RPR, HIV4 ####[address] Hematocrit (Bld) [Volume fraction] 43.0 % Normal 40.0-52.0 [facility] Comment on above: Performed By: #### H EMDF, BMP3 ####[facility] [place] [address]#### RPR, HIV4 ####[address] Hemoglobin (Bld) [Mass/Vol] 15.0 g/dL Normal 13.0-18.0 [facility] Comment on above: Performed By: #### H EMDF, BMP3 ####[address] [place] [address]#### RPR, HIV4 ####[address] Lymphocytes (Bld) [#/Vol] 2.4 10*3/uL Normal 1.0-4.3 [facility] Comment on above: Performed By: #### H EMDF, BMP3 ####[address] [place] [address]#### RPR, HIV4 ####[address] Lymphocytes/100 WBC (Bld) 25.9 % Normal 20.0-40.0 [facility] Comment on above: Performed By: #### H EMDF, BMP3 ####[address] [place] [address]#### RPR, HIV4 ####[address] MCH (RBC) [Entitic mass] 31.2 pg Normal 26.0-34.0 [facility] Comment on above: Performed By: #### H EMDF, BMP3 ####[address] [place] [address]#### RPR, HIV4 ####[address] MCHC (RBC) [Mass/Vol] 34.9 % Normal 32.0-36.0 [facility] Comment on above: Performed By: #### H EMDF, BMP3 ####[address] [place] [address]#### RPR, HIV4 ####[address] [place], [place] MCV (RBC) [Entitic vol] 89.5 fL Normal 80.0-98.0 [facility] Comment on above: Performed By: #### H EMDF, BMP3 ####[address] [place] [address]#### RPR, HIV4 ####[address] Monocytes (Bld) [#/Vol] 0.8 10*3/uL Normal 0.0-0.8 [facility] Comment on above: Performed By: #### H EMDF, BMP3 ####[address] [place] [address]#### RPR, HIV4 ####[address] Monocytes/100 WBC (Bld) 8.7 % Normal 2.0-10.0 [facility] Comment on above: Performed By: #### H EMDF, BMP3 ####[address] [place] [address]#### RPR, HIV4 ####[address] Platelet mean volume (Bld) [Entitic vol] 8.0 fL Normal 7.4-10.4 [facility] Comment on above: Performed By: #### H EMDF, BMP3 ####[address] [place] [address]#### RPR, HIV4 ####[address] Platelets (Bld) [#/Vol] 226 10*3/uL Normal 140-440 [facility] Comment on above: Performed By: #### H EMDF, BMP3 ####[address] [place] [address]#### RPR, HIV4 ####[address] [place] [address] RBC (Bld) [#/Vol] 4.80 10*6/uL Normal 4.40-5.90 [facility] Comment on above: Performed By: #### H EMDF, BMP3 ####[facility] [place] [address]#### RPR, HIV4 ####[address] [place] [address] WBC (Bld) [#/Vol] 9.1 10*3/uL Normal 3.6-10.7 [facility] Comment on above: Performed By: #### H EMDF, BMP3 ####[facility] [place] [address]#### RPR, HIV4 ####[address] [address] RPR, Qualon 12-30-2018 RPR, Qual NONREACTIVE Normal Non-Reactive [facility] Comment on above: Performed By: #### H EMDF, BMP3 ####[address] [place] [address]#### RPR, HIV4 ####[address] [address] C-Reactive Proteinon 019 CRP [Mass/Vol] 0.5 mg/dL Normal <0.9 [facility] Comment on above: Performed By: #### D IFF, WBC, WSR, CRP #### [facility] Routine Lab [address] [place], [place] [address] Differential ([facility] LAB USE O NLY)on 12-21-2018 Abs Baso 0.07 k/uL Normal <0.11 [facility] Comment on above: Performed By: #### D IFF, WBC, WSR, CRP #### [facility]ine Lab [address] [place], [place] [address] Abs Reagan 0.55 k/uL Normal <0.87 [facility] Comment on above: Performed By: #### D IFF, WBC, WSR, CRP #### [facility] Routine Lab [address] [address] Abs Neut 5.67 k/uL Normal 1.45-7.50 [facility] Comment on above: Performed By: #### D IFF, WBC, WSR, CRP #### [facility] Routine Lab [address] [place] [address] Absolute nRBC <0.01 Normal <0.01 [facility] Comment on above: Performed By: #### D IFF, WBC, WSR, CRP #### [facility] Lab [address] [place] [address] Basophils/100 WBC (Bld) 0.9 % Normal [facility] Comment on above: Performed By: #### D IFF, WBC, WSR, CRP #### [facility] Lab [address] [place] [address] DTYPE ADIFF Normal [facility] Comment on above: Performed By: #### D IFF, WBC, WSR, CRP #### [facility] [address] [place] [address] Eosinophils (Bld) [#/Vol] 0.20 10*3/uL Normal <0.46 [facility] Comment on above: Performed By: #### D IFF, WBC, WSR, CRP #### [facility] Routine Lab [address] [address] Eosinophils/100 WBC (Bld) 2.4 % Normal [facility] Comment on above: Performed By: #### D IFF, WBC, WSR, CRP #### [facility]ine Lab [address] [address] Lymphocytes (Bld) [#/Vol] 1.71 10*3/uL Normal 1.00-4.00 [facility] Comment on above: Performed By: #### D IFF, WBC, WSR, CRP #### [facility] Routine Lab [address] [address] Lymphocytes/100 WBC (Bld) 20.9 % Normal [facility] Comment on above: Performed By: #### D IFF, WBC, WSR, CRP #### [facility] Routine Lab [address] [place] [address] Monocytes/100 WBC (Bld) 6.7 % Normal [facility] Comment on above: Performed By: #### D IFF, WBC, WSR, CRP #### [facility] Routine Lab [address] [place] [address] Neutrophils/100 WBC (Bld) 69.1 % Normal [facility] [place] [facility] Comment on above: Performed By: #### D IFF, WBC, WSR, CRP #### [facility] Routine Lab [address] [place] [address] NRBCs 0.0 /100 WBC Normal 0 [facility] Comment on above: Performed By: #### D IFF, WBC, WSR, CRP #### [facility]ine Lab [address] [place] [address] Sed Rate Westergrenon 2018 Sed Rate Westergren 2 mm/hr Normal 0-15 [facility] Comment on above: Performed By: #### D IFF, WBC, WSR, CRP #### [facility] Routine Lab [address] [place] [address] WBCon 12-21-2018 WBC (Bld) [#/Vol] 8.20 10*3/uL Normal 3.70-11.00 [facility] Comment on above: Performed By: #### D IFF, WBC, WSR, CRP #### [facility] Routine Lab [address] [place] [address] Glucose,Bedsideon 12-18-2018 Glucose [Mass/Vol] 203 mg/dL High 70-100 [facility] Comment on above: Result Comment: Test performed by glucose meter. Results may be 10%-15% lower than serum/plasma values. (CLIA ID [id number]) Performed By: #### B GLU ####[facility] [place] [address] Glucose [Mass/Vol] 175 mg/dL High 70-100 [facility] Comment on above: Result Comment: Test performed by glucose meter. Results may be 10%-15% lower than serum/plasma values. (CLIA ID [id number]) Performed By: #### B GLU ####[facility] [place] [address] C-Reactive Proteinon 019 CRP [Mass/Vol] 9.9 mg/L High 0.0-6.0 [facility] Comment on above: Result Comment: . Performed By: #### H EMDF, ESR, CRP2, CMP3 #### [facility] [address] [place] [address] CRP [Mass/Vol] 9.9 mg/L High 0 - 6 mg/L [place], [place] Comment on above: . Interpretation and review of laboratory results Abnormal [place], [place] Test Performed by [facility], [address] , [place], [place] [address] [place], [place] Comp Metabolic Panelon 12-17 Albumin [Mass/Vol] 4.1 g/dL Normal 3.5-5.0 [facility] Comment on above: Performed By: #### H EMDF, ESR, CRP2, CMP3 ####[facility] [place] [address] ALP [Catalytic activity/Vol] 95 U/L Normal 38-126 [facility] Comment on above: Performed By: #### H EMDF, ESR, CRP2, CMP3 ####[facility] [place] [address] ALT [Catalytic activity/Vol] 17 U/L Normal 13-69 [facility] Comment on above: Performed By: #### H EMDF, ESR, CRP2, CMP3 ####[facility] [place] [address] Anion gap [Moles/Vol] 13 Normal [facility] Comment on above: Performed By: #### H EMDF, ESR, CRP2, CMP3 ####[facility] [place] [address] AST [Catalytic activity/Vol] 20 U/L Normal 15-46 [facility] Comment on above: Performed By: #### H EMDF, ESR, CRP2, CMP3 ####[facility] [place] [address] Bilirubin [Mass/Vol] 0.6 mg/dL Normal 0.2-1.3 [facility] Comment on above: Performed By: #### H EMDF, ESR, CRP2, CMP3 ####[facility] [place] [address] Calcium [Mass/Vol] 9.6 mg/dL Normal 8.4-10.4 [facility] Comment on above: Performed By: #### H EMDF, ESR, CRP2, CMP3 ####[facility] [place] [address] Chloride [Moles/Vol] 99 mmol/L Normal 98-107 [facility] Comment on above: Performed By: #### H EMDF, ESR, CRP2, CMP3 ####[facility] [place] [address] CO2 [Moles/Vol] 25 mmol/L Normal 22-30 [facility] Comment on above: Performed By: #### H EMDF, ESR, CRP2, CMP3 ####[facility] [place] [address] Creatinine [Mass/Vol] 0.83 mg/dL Normal 0.52-1.25 [facility] Comment on above: Performed By: #### H EMDF, ESR, CRP2, CMP3 ####[facility] [place] [address] GFR/1.73 sq M predicted among blacks MDRD (S/P/Bld) [Vol rate/Area] mL/min/{1.73_m2} Normal >60 [facility] Comment on above: Performed By: #### H EMDF, ESR, CRP2, CMP3 ####[facility] [place] [address] GFR/1.73 sq M predicted among non-blacks MDRD (S/P/Bld) [Vol rate/Area] mL/min/{1.73_m2} Normal >60 [facility] Comment on above: Result Comment: Sour ce- MDRD equation with creatinine calibration to IDMS(NKDEP) eGFR not recommended for drug dose adjustment Performed By: #### H EMDF, ESR, CRP2, CMP3 ####[address] [place] [address] Glucose [Mass/Vol] 457 mg/dL Critically high 70-100 [facility] Comment on above: Result Comment: veri fied by repeat analysis Performed By: #### H EMDF, ESR, CRP2, CMP3 ####[address] [place] [address] Potassium [Moles/Vol] 4.6 mmol/L Normal 3.5-5.1 [facility] Comment on above: Performed By: #### H EMDF, ESR, CRP2, CMP3 ####[place] [address] [place] [address] Protein [Mass/Vol] 7.3 g/dL Normal 6.3-8.2 [facility] Comment on above: Performed By: #### H EMDF, ESR, CRP2, CMP3 ####[facility] [place] [address] Sodium [Moles/Vol] 137 mmol/L Normal 135-145 [facility] Comment on above: Performed By: #### H EMDF, ESR, CRP2, CMP3 ####[place] [address] [place] [address] Urea nitrogen [Mass/Vol] 16 mg/dL Normal 7-20 [facility] Comment on above: Performed By: #### H EMDF, ESR, CRP2, CMP3 ####[facility] [place] [address] Comprehensive Metabolic Pane traci 12-17-2018 Albumin [Mass/Vol] 4.1 g/dL 3.5 - 5 g/dL [place], [place] ALP [Catalytic activity/Vol] 95 U/L 38 - 126 U/L [place] ALT [Catalytic activity/Vol] 17 U/L 13 - 69 U/L [place] Anion gap [Moles/Vol] 13 mmol/L [place] AST [Catalytic activity/Vol] 20 U/L 15 - 46 U/L [place] Bilirubin Ql (U) 0.6 mg/dL 0.2 - 1.3 mg/dL [place] Calcium [Mass/Vol] 9.6 mg/dL 8.4 - 10. 4 mg/dL [place] Chloride [Moles/Vol] 99 mmol/L 98 - 10 7 mmol/L [place] CO2 [Moles/Vol] 25 mmol/L 22 - 30 mmol/L [place] Creatinine [Mass/Vol] 0.83 mg/dL 0.52 - 1.25 mg/dL [place] EGFR IF NonAfrican [place] >60.0 >60 mL/min [place] Comment on above: Source- MDRD equatio n with creatinine calibration to IDMS(NKDEP) eGFR not recommended for drug dose adjustment GFR/1.73 sq M predicted among blacks MDRD (S/P/Bld) [Vol rate/Area] mL/min/{1.73_m2} >60 mL/min [place] Glucose [Mass/Vol] 457 mg/dL Critically high 70 - 1 00 mg/dL [place] Comment on above: verified by repeat a nalysis Interpretation and review of laboratory results Abnormal [place] Potassium [Moles/Vol] 4.6 mmol/L 3.5 - 5.1 mmol/L [place] Protein [Mass/Vol] 7.3 g/dL 6.3 - 8.2 g/dL [place] Sodium [Moles/Vol] 137 mmol/L 135 - 145 mmol/L [place] Urea nitrogen [Mass/Vol] 16 mg/dL 7 - 20 mg/dL [place] Test Performed by [facility], [address] , [place], [place] [address] [place] [address] Hemogram (CBC) w/Auto Diffon 12-17-2018 Absolute Baso # 0.1 10*3/uL 0 - 0.2 10*3/uL [place] Absolute Neut # 2.8 10*3/uL 1.8 - 7 10*3/uL [place] Basophils/100 WBC (Bld) 1.4 % 0 - 2 % [place] Eosinophils (Bld) [#/Vol] 0.2 10*3/uL 0 - 0.5 10*3/uL [place] Eosinophils/100 WBC (Bld) 4.9 % 1 - 6 % [place] Erythrocyte distribution width (RBC) [Ratio] 12.8 % 11.5 - 14.5 % [place] Granulocytes/100 WBC (Bld) 54.7 % 40 - 80 % [place] Hematocrit (Bld) [Volume fraction] 44.8 % 40 - 52 % [place] Hemoglobin (Bld) [Mass/Vol] 15.4 g/dL 13 - 18 g/dL [place] Lymphocytes (Bld) [#/Vol] 1.5 10*3/uL 1 - 4.3 10*3/uL [place] Lymphocytes/100 WBC (Bld) 29.6 % 20 - 40 % [place] MCH (RBC) [Entitic mass] 31.2 pg 26 - 34 pg [place] MCHC (RBC) [Mass/Vol] 34.4 % 32 - 36 % [place] MCV (RBC) [Entitic vol] 90.7 fL 80 - 98 fL [place] Monocytes (Bld) [#/Vol] 0.5 10*3/uL 0 - 0.8 10*3/uL [place] Monocytes/100 WBC (Bld) 9.4 % 2 - 10 % [place] Platelet mean volume (Bld) [Entitic vol] 7.8 fL 7.4 - 10.4 fL [place] Platelets (Bld) [#/Vol] 225 10*3/uL 140 - 440 10*3/uL [place] RBC (Bld) [#/Vol] 4.94 10*6/uL 4.4 - 5.9 10*6/uL [place] WBC (Bld) [#/Vol] 5.0 10*3/uL 3.6 - 10.7 10*3/uL [place] Test Performed by [facility], [address] , [place], [place] [id number] [place] [address] Hemogram w/ Autodiffon 12-17 Abs Baso Cnt 0.1 10*3/uL Normal 0.0-0.2 [facility] Comment on above: Performed By: #### H EMDF, ESR, CRP2, CMP3 #### [facility] [address] [facility] [place] [address] Abs Neutrophile Cnt 2.8 10*3/uL Normal 1.8-7.0 [facility] Comment on above: Performed By: #### H EMDF, ESR, CRP2, CMP3 #### [facility] [address] [place] [address] Basophils/100 WBC (Bld) 1.4 % Normal 0.0-2.0 [facility] Comment on above: Performed By: #### H EMDF, ESR, CRP2, CMP3 #### [facility] [address] [facility] [place] [address] Eosinophils (Bld) [#/Vol] 0.2 10*3/uL Normal 0.0-0.5 [facility] Comment on above: Performed By: #### H EMDF, ESR, CRP2, CMP3 #### [facility] [address] [place] [address] Eosinophils/100 WBC (Bld) 4.9 % Normal 1.0-6.0 [facility] Comment on above: Performed By: #### H EMDF, ESR, CRP2, CMP3 #### [facility] [address] [place] [address] Erythrocyte distribution width (RBC) [Ratio] 12.8 % Normal 11.5-14.5 [facility] Comment on above: Performed By: #### H EMDF, ESR, CRP2, CMP3 #### [address] [place] [address] Granulocytes/100 WBC (Bld) 54.7 % Normal 40.0-80.0 [facility] Comment on above: Performed By: #### H EMDF, ESR, CRP2, CMP3 #### [address] [place] [address] Hematocrit (Bld) [Volume fraction] 44.8 % Normal 40.0-52.0 [facility] Comment on above: Performed By: #### H EMDF, ESR, CRP2, CMP3 #### [address] [place] [address] Hemoglobin (Bld) [Mass/Vol] 15.4 g/dL Normal 13.0-18.0 [facility] Comment on above: Performed By: #### H EMDF, ESR, CRP2, CMP3 #### [address] [place] [address] Lymphocytes (Bld) [#/Vol] 1.5 10*3/uL Normal 1.0-4.3 [facility] Comment on above: Performed By: #### H EMDF, ESR, CRP2, CMP3 #### [facility] [address] [place] [address] Lymphocytes/100 WBC (Bld) 29.6 % Normal 20.0-40.0 [facility] Comment on above: Performed By: #### H EMDF, ESR, CRP2, CMP3 #### [place] [address] [place] [address] MCH (RBC) [Entitic mass] 31.2 pg Normal 26.0-34.0 [facility] Comment on above: Performed By: #### H EMDF, ESR, CRP2, CMP3 #### [facility] [address] [place] [address] MCHC (RBC) [Mass/Vol] 34.4 % Normal 32.0-36.0 [facility] Comment on above: Performed By: #### H EMDF, ESR, CRP2, CMP3 #### [facility] [address] [place] [address] MCV (RBC) [Entitic vol] 90.7 fL Normal 80.0-98.0 [facility] Comment on above: Performed By: #### H EMDF, ESR, CRP2, CMP3 #### [facility] [address] [place] [address] Monocytes (Bld) [#/Vol] 0.5 10*3/uL Normal 0.0-0.8 [facility] Comment on above: Performed By: #### H EMDF, ESR, CRP2, CMP3 #### [facility] [address] [place] [address] Monocytes/100 WBC (Bld) 9.4 % Normal 2.0-10.0 [facility] Comment on above: Performed By: #### H EMDF, ESR, CRP2, CMP3 #### [facility] [address] [place] [address] Platelet mean volume (Bld) [Entitic vol] 7.8 fL Normal 7.4-10.4 [facility] Comment on above: Performed By: #### H EMDF, ESR, CRP2, CMP3 #### [facility] [address] [place] [address] Platelets (Bld) [#/Vol] 225 10*3/uL Normal 140-440 [facility] Comment on above: Performed By: #### H EMDF, ESR, CRP2, CMP3 #### [facility] [address] [place] [address] RBC (Bld) [#/Vol] 4.94 10*6/uL Normal 4.40-5.90 [facility] Comment on above: Performed By: #### H EMDF, ESR, CRP2, CMP3 #### [facility] [address] [place] [address] WBC (Bld) [#/Vol] 5.0 10*3/uL Normal 3.6-10.7 [facility] Comment on above: Performed By: #### H EMDF, ESR, CRP2, CMP3 #### [facility] [address] [place] [address] POCT Glucoseon 12-17-2018 Glucose [Mass/Vol] 203 mg/dL High 70 - 100 mg/dL [place], [place] Comment on above: Test performed by gl ucose meter. Results may be 10%-15% lower than serum/plasma values. (CLIA ID [id number]) Interpretation and review of laboratory results [facility] [place] [place] Test Performed by [facility], [facility] [address] , [address] Glucose [Mass/Vol] 175 mg/dL High 70 - 100 mg/dL [place], [place] Comment on above: Test performed by gl ucose meter. Results may be 10%-15% lower than serum/plasma values. (CLIA ID [id number]) Interpretation and review of laboratory results Abnormal [facility] [place] [place] Test Performed by [facility], [facility] [address] , [address], [place] Sed Rateon 12-17-2018 Sed Rate 7 mm/h Normal 0-10 [facility] Comment on above: Performed By: #### H EMDF, ESR, CRP2, CMP3 #### [facility] [address] [place] [address] Sed Rate 7 mm/h Normal 0-10 [facility] Comment on above: Performed By: #### C RP2, ESR #### [facility] [address] [place] [address] Sedimentation Rateon 019 Sed Rate 7 mm/h 0 - 10 mm/h [facility], [place] Test Performed by [facility], [address] , [place], [place] [address] [facility], [place] Basic Metabolic Panelon 12-06 Calcium [Mass/Vol] 8.6 mg/dL Normal 8.4-10.4 [facility] Comment on above: Performed By: #### H ABDIEL, BMP3 #### [facility] [address] [place] [address] Glucose [Mass/Vol] 376 mg/dL High 70-100 [facility] Comment on above: Performed By: #### H ABDIEL, BMP3 #### [facility] [address] [place] [address] Urea nitrogen [Mass/Vol] 19 mg/dL Normal 7-20 [facility] Comment on above: Performed By: #### H ABDIEL, BMP3 #### [facility] [address] [place] [address] Anion gap [Moles/Vol] 13 Normal [facility] Comment on above: Performed By: #### H ABDIEL, BMP3 #### [facility] [address] [place] [address] CO2 [Moles/Vol] 24 mmol/L Normal 22-30 [facility] Comment on above: Performed By: #### H ABDIEL, BMP3 #### [facility] [address] [place] [address] Creatinine [Mass/Vol] 0.93 mg/dL Normal 0.52-1.25 [facility] Comment on above: Performed By: #### H ABDIEL, BMP3 #### [facility] [address] [place] [address] GFR/1.73 sq M predicted among blacks MDRD (S/P/Bld) [Vol rate/Area] mL/min/{1.73_m2} Normal >60 [facility] Comment on above: Performed By: #### H EMDF, BMP3 #### [facility] [address] [place] [address] GFR/1.73 sq M predicted among non-blacks MDRD (S/P/Bld) [Vol rate/Area] mL/min/{1.73_m2} Normal >60 [facility] Comment on above: Result Comment: Sour ce- MDRD equation with creatinine calibration to IDMS(NKDEP) eGFR not recommended for drug dose adjustment Performed By: #### H ABDIEL, BMP3 #### [facility] [address] [place] [address] Chloride [Moles/Vol] 102 mmol/L Normal 98-107 [facility] Comment on above: Performed By: #### H ABDIEL, BMP3 #### [facility] [address] [place] [address] Potassium [Moles/Vol] 4.6 mmol/L Normal 3.5-5.1 [facility] Comment on above: Performed By: #### H ABDIEL, BMP3 #### [facility] [address] [place] [address] Sodium [Moles/Vol] 139 mmol/L Normal 135-145 [facility] Comment on above: Performed By: #### H ABDIEL, BMP3 #### [facility] [address] [place] [address] Anion gap [Moles/Vol] 13 mmol/L [facility], [place] Calcium [Mass/Vol] 8.6 mg/dL 8.4 - 10. 4 mg/dL [facility], [place] Chloride [Moles/Vol] 102 mmol/L 98 - 10 7 mmol/L [facility], [place] CO2 [Moles/Vol] 24 mmol/L 22 - 30 mmol/L [facility], [place] Creatinine [Mass/Vol] 0.93 mg/dL 0.52 - 1.25 mg/dL [facility], [place] EGFR IF NonAfrican [place] >60.0 >60 mL/min [place], [place] Comment on above: Source- MDRD equatio n with creatinine calibration to IDMS(NKDEP) eGFR not recommended for drug dose adjustment GFR/1.73 sq M predicted among blacks MDRD (S/P/Bld) [Vol rate/Area] mL/min/{1.73_m2} >60 mL/min [facility], [place] Glucose [Mass/Vol] 376 mg/dL High 70 - 100 mg/dL [place], [place] Interpretation and review of laboratory results Abnormal [place] Potassium [Moles/Vol] 4.6 mmol/L 3.5 - 5.1 mmol/L [place] Sodium [Moles/Vol] 139 mmol/L 135 - 145 mmol/L [place] Urea nitrogen [Mass/Vol] 19 mg/dL 7 - 20 mg/dL [place] Test Performed by [facility], [address] , [address] C-Reactive Proteinon 019 CRP [Mass/Vol] 12.6 mg/L High 0.0-6.0 [facility] Comment on above: Result Comment: . Performed By: #### C RP2, ESR #### [facility] [address] [place] [address] CRP [Mass/Vol] 12.6 mg/L High 0 - 6 mg/L [place], [place] Comment on above: . Interpretation and review of laboratory results Abnormal [place], [place] Test Performed by [facility], [address] , [address] CR Forearm 2 Views Lefton CR Forearm 2 Views Left Patient Name: YUSEF MUIR Jr Diagnostic Radiology Exam Date/Time 12/16/2018 18:32:55 EDT Exam CR Forearm 2 Views Left Ordering Physician MD WARREN, SHASHANK Accession Number [id number] CPT4 Codes 80851 () Reason For Exam injury Report AP and lateral views of the left forearm, 12/16/2018. Reason for examination: Laceration to the left forearm. COMPARISON: Radiographs of the left elbow dated September 16, 2018. FINDINGS: There is relatively extensive periosteal reaction associated with the proximal metadiaphysis of the radius, new since the prior study. Exact etiology is uncertain. No definite fracture is noted. Soft tissue calcifications are also noted in this area. Findings are suggestive of an inflammatory process of uncertain etiology. There also appears to be mild cortical bone loss in this area, primarily dorsally and medially. No other bony lesion is identified. There is a small enthesophyte at the tip of the olecranon process of the proximal ulna. IMPRESSION: Probable inflammatory process affecting the proximal radius with some cortical bone loss and relatively extensive periosteal new bone formation, as well as soft tissue calcifications. An infectious process may be considered in the right clinical setting. Report Dictated on Final Dictating Physician: MD GUTIERREZ JOE M Signed Date and Time: 12/16/2018 6:50 pm Signed by: MD GUTIERREZ JOE M Transcribed Date and Time: 12/16/2018 6:51 Normal [facility] Hemogram (CBC) w/Auto Diffon 12-16-2018 Absolute Baso # 0.1 10*3/uL 0 - 0.2 10*3/uL [place] Absolute Neut # 3.1 10*3/uL 1.8 - 7 10*3/uL [place] Basophils/100 WBC (Bld) 1.1 % 0 - 2 % [place] Eosinophils (Bld) [#/Vol] 0.2 10*3/uL 0 - 0.5 10*3/uL [place] Eosinophils/100 WBC (Bld) 3.3 % 1 - 6 % [place] Erythrocyte distribution width (RBC) [Ratio] 12.9 % 11.5 - 14.5 % [place] Granulocytes/100 WBC (Bld) 57.7 % 40 - 80 % [place] Hematocrit (Bld) [Volume fraction] 43.2 % 40 - 52 % [place] Hemoglobin (Bld) [Mass/Vol] 14.9 g/dL 13 - 18 g/dL [place] Interpretation and review of laboratory results Abnormal [place] Lymphocytes (Bld) [#/Vol] 1.5 10*3/uL 1 - 4.3 10*3/uL [place] Lymphocytes/100 WBC (Bld) 27.4 % 20 - 40 % [place] MCH (RBC) [Entitic mass] 31.8 pg 26 - 34 pg [place] MCHC (RBC) [Mass/Vol] 34.6 % 32 - 36 % [place] MCV (RBC) [Entitic vol] 91.8 fL 80 - 98 fL [place] Monocytes (Bld) [#/Vol] 0.6 10*3/uL 0 - 0.8 10*3/uL [place] Monocytes/100 WBC (Bld) 10.5 % High 2 - 10 % [place] Platelet mean volume (Bld) [Entitic vol] 7.8 fL 7.4 - 10.4 fL [place] Platelets (Bld) [#/Vol] 225 10*3/uL 140 - 440 10*3/uL [place] RBC (Bld) [#/Vol] 4.70 10*6/uL 4.4 - 5.9 10*6/uL [place] WBC (Bld) [#/Vol] 5.3 10*3/uL 3.6 - 10.7 10*3/uL [place] Test Performed by [facility], [address] Hemogram w/ Autodiffon 12-16 Abs Baso Cnt 0.1 10*3/uL Normal 0.0-0.2 [facility] Comment on above: Performed By: #### H ABDIEL BMP3 #### [facility] [address] [place] [address] Abs Neutrophile Cnt 3.1 10*3/uL Normal 1.8-7.0 [facility] Comment on above: Performed By: #### H ABDIEL BMP3 #### [facility] [address] [place] [address] Basophils/100 WBC (Bld) 1.1 % Normal 0.0-2.0 [facility] Comment on above: Performed By: #### H ABDIEL BMP3 #### [facility] [address] [place] [address] Eosinophils (Bld) [#/Vol] 0.2 10*3/uL Normal 0.0-0.5 [facility] Comment on above: Performed By: #### H ABDIEL BMP3 #### [facility] [address] [place] [address] Eosinophils/100 WBC (Bld) 3.3 % Normal 1.0-6.0 [facility] Comment on above: Performed By: #### H ABDIEL BMP3 #### [facility] [address] [place] [address] Erythrocyte distribution width (RBC) [Ratio] 12.9 % Normal 11.5-14.5 [facility] Comment on above: Performed By: #### H ABDIEL BMP3 #### [facility] [address] [place] [address] Granulocytes/100 WBC (Bld) 57.7 % Normal 40.0-80.0 [facility] Comment on above: Performed By: #### H ABDIEL BMP3 #### [facility] [address] [place] [address] Hematocrit (Bld) [Volume fraction] 43.2 % Normal 40.0-52.0 [facility] Comment on above: Performed By: #### H ABDIEL BMP3 #### [facility] [address] [place] [address] Hemoglobin (Bld) [Mass/Vol] 14.9 g/dL Normal 13.0-18.0 [facility] Comment on above: Performed By: #### H EMDF BMP3 #### [facility] [address] [place] [address] Lymphocytes (Bld) [#/Vol] 1.5 10*3/uL Normal 1.0-4.3 [facility] Comment on above: Performed By: #### H EMDF, BMP3 #### [facility] [address] [place] [address] Lymphocytes/100 WBC (Bld) 27.4 % Normal 20.0-40.0 [facility] Comment on above: Performed By: #### H ABDIEL BMP3 #### [facility] [address] [place] [address] MCH (RBC) [Entitic mass] 31.8 pg Normal 26.0-34.0 [facility] Comment on above: Performed By: #### H EMDF, BMP3 #### [facility] [address] [place] [address] MCHC (RBC) [Mass/Vol] 34.6 % Normal 32.0-36.0 [facility] Comment on above: Performed By: #### H EMDF, BMP3 #### [facility] [address] [place] [address] MCV (RBC) [Entitic vol] 91.8 fL Normal 80.0-98.0 [facility] Comment on above: Performed By: #### H EMDF, BMP3 #### [facility] [address] [place] [address] Monocytes (Bld) [#/Vol] 0.6 10*3/uL Normal 0.0-0.8 [facility] Comment on above: Performed By: #### H EMDF, BMP3 #### [facility] [address] [place] [address] Monocytes/100 WBC (Bld) 10.5 % High 2.0-10.0 [facility] Comment on above: Performed By: #### H EMDF, BMP3 #### [facility] [address] [place] [address] Platelet mean volume (Bld) [Entitic vol] 7.8 fL Normal 7.4-10.4 [facility] Comment on above: Performed By: #### H EMDF, BMP3 #### [facility] [address] [place] [address] Platelets (Bld) [#/Vol] 225 10*3/uL Normal 140-440 [facility] Comment on above: Performed By: #### H EMDF, BMP3 #### [facility] [address] [place] [address] RBC (Bld) [#/Vol] 4.70 10*6/uL Normal 4.40-5.90 [facility] Comment on above: Performed By: #### H EMDF, BMP3 #### [facility] [address] [place] [address] WBC (Bld) [#/Vol] 5.3 10*3/uL Normal 3.6-10.7 [facility] Comment on above: Performed By: #### H EMDF, BMP3 #### [facility] [address] [place] [address] Sedimentation Rateon 019 Sed Rate 7 mm/h 0 - 10 mm/h [facility], [place] Test Performed by [facility], [address] , [place], [place] [id number] [place] [address], [place] XR RADIUS ULNA LEFT (2 VIEWS )on 12-16-2018 [place], [facility] Incoming Radiology Results From [facility] - 12/16/2018 6:51 PM EDT Patient Name: YUSEF MUIR Jr ---Diagnostic Radiology--- Exam Date/Time 12/16/2018 18:32:55 EDT Exam CR Forearm 2 Views Left Ordering Physician MD WARREN, [employer] Accession Number [id number] CPT4 Codes 87722 () Reason For Exam injury Report AP and lateral views of the left forearm, 12/16/2018. Reason for examination: Laceration to the left forearm. COMPARISON: Radiographs of the left elbow dated September 16, 2018. FINDINGS: There is relatively extensive periosteal reaction associated with the proximal metadiaphysis of the radius, new since the prior study. Exact etiology is uncertain. No definite fracture is noted. Soft tissue calcifications are also noted in this area. Findings are suggestive of an inflammatory process of uncertain etiology. There also appears to be mild cortical bone loss in this area, primarily dorsally and medially. No other bony lesion is identified. There is a small enthesophyte at the tip of the olecranon process of the proximal ulna. IMPRESSION: Probable inflammatory process affecting the proximal radius with some cortical bone loss and relatively extensive periosteal new bone formation, as well as soft tissue calcifications. An infectious process may be considered in the right clinical setting. Report Dictated on --- Final --- Dictating Physician: MD GUTIERREZ JOE M Signed Date and Time: 12/16/2018 6:50 pm Signed by: MD GUTIERREZ JOE M Transcribed Date and Time: 12/16/2018 6:51 [place] Patient Name: YUSEF ANGULO Jr ---Diagnostic Radiology--- Exam Date/Time 12/16/2018 18:32:55 EDT Exam CR Forearm 2 Views Left Ordering Physician MD WARREN, [employer] Accession Number [id number] CPT4 Codes 22320 () Reason For Exam injury Report AP and lateral views of the left forearm, 12/16/2018. Reason for examination: Laceration to the left forearm. COMPARISON: Radiographs of the left elbow dated September 16, 2018. FINDINGS: There is relatively extensive periosteal reaction associated with the proximal metadiaphysis of the radius, new since the prior study. Exact etiology is uncertain. No definite fracture is noted. Soft tissue calcifications are also noted in this area. Findings are suggestive of an inflammatory process of uncertain etiology. There also appears to be mild cortical bone loss in this area, primarily dorsally and medially. No other bony lesion is identified. There is a small enthesophyte at the tip of the olecranon process of the proximal ulna. IMPRESSION: Probable inflammatory process affecting the proximal radius with some cortical bone loss and relatively extensive periosteal new bone formation, as well as soft tissue calcifications. An infectious process may be considered in the right clinical setting. Report Dictated on --- Final --- Dictating Physician: MD GUTIERREZ JOE M Signed Date and Time: 12/16/2018 6:50 pm Signed by: MD GUTIERREZ JOE M Transcribed Date and Time: 12/16/2018 6:51 [place] CR Elbow 3+ Views Lefton CR Elbow 3+ Views Left Patient Name: YUSEF MUIR Jr Diagnostic Radiology Exam Date/Time 09/16/2018 17:05:21 EDT Exam CR Elbow 3+ Views Left Ordering Physician VICTORIANO ELIAS MD, DONALD L Accession Number [id number] CPT4 Codes 93797 () Reason For Exam patient complains of elbow pain after injury Report LEFT ELBOW: CLINICAL INDICATION: Injury. Left elbow pain. TECHNIQUE: AP, lateral and oblique COMPARISON: None. FINDINGS: There is no evidence for fracture or dislocation. Well-corticated bone fragment is seen adjacent to the ulnar trochlea and lateral epicondyle, likely accessory ossicles. There is a tiny olecranon spur. No bone lesion is identified. There is no evidence for joint effusion. IMPRESSION: 1. No acute traumatic abnormality. 2. Olecranon enthesophyte. 3. Mild elbow osteoarthritis. Report Dictated on Final Dictating Physician: CHRISTIANE ESTEVEZ DO, I Signed Date and Time: 09/16/2018 5:16 pm Signed by: CHRISTIANE ESTEVEZ DO, I Transcribed Date and Time: 09/16/2018 5:17 Normal [facility] CT Head or Brain w/o Contras ton 04-07-2018 CT Head or Brain w/o Contrast Patient Name: YUSEF MUIR Jr CT Exam Date/Time 04/07/2018 16:46:[address] Head or Brain w/o Contrast Ordering Physician APRIL HARDWICK Accession Number [id number] CPT4 Codes 14770 () Reason For Exam HEADACHE, SAH SUSPECTED, NOT CONFIRMED Report HISTORY: Left-sided headache and dizziness Noncontrast CT is performed and compared to previous study from 10/24/2017. FINDINGS: No acute intracranial abnormalities are seen. Moderate vascular calcifications are present in the carotid siphons for age with tortuous vertebral basilar system. Paranasal sinusitis changes are seen in the sphenoid sinus and ethmoid air cells of moderate degree which was present on last exam Report Dictated on Final Dictating Physician: MD KIM WILLIAM Signed Date and Time: 04/07/2018 4:59 pm Signed by: MD KIM WILLIAM Transcribed Date and Time: 04/07/2018 5:00 Normal [facility] Vital Signs Date Time Vital Sign Value Performing Clinician Facility 10-13-2024 13:27-0400 Body height 182.9 cm Ricardo Smith MD Work Phone: [facility] 10-13-2024 13:27-0400 Body mass index (BMI) [Ratio] 36.62 kg/m2 Ricardo Smith MD Work Phone: [facility] 10-13-2024 13:27-0400 Body weight 122.47 kg Ricardo Smith MD Work Phone: [facility] 10-06-2024 13:47-0400 Body height 182.9 cm [employer] PA-C Work Phone: [facility] 10-06-2024 13:47-0400 Body mass index (BMI) [Ratio] 36.62 kg/m2 [employer] PA-C Work Phone: [facility] [employer] 10-06-2024 13:47-0400 Body weight 122.47 kg [employer] PA-C Work Phone: [facility] 09-29-2024 09:29-0400 Body height 182.9 cm Ricardo Smith MD Work Phone: [facility] 09-29-2024 09:29-0400 Body mass index (BMI) [Ratio] 36.62 kg/m2 Ricardo Smith MD Work Phone: [facility] 09-29-2024 09:29-0400 Body weight 122.47 kg Ricardo Smith MD Work Phone: [facility] 10-28-2023 19:58-0400 Diastolic Blood Pressure Non-Invasive 71 mm[Hg] [facility] 10-28-2023 19:58-0400 Respiratory rate 18 /min [facility] 10-28-2023 19:58-0400 Systolic Blood Pressure Non-Invasive 119 mm[Hg] CARLEE REICHFIELD DO [facility] 10-28-2023 17:56-0400 Diastolic Blood Pressure Non-Invasive 69 mm[Hg] CARLEE REICHFIELD DO [facility] 10-28-2023 17:56-0400 Respiratory rate 18 /min CARLEE REICHFIELD DO [facility] 10-28-2023 17:56-0400 Systolic Blood Pressure Non-Invasive 99 mm[Hg] CARLEE REICHFIELD DO [facility] 10-28-2023 17:42-0400 Diastolic Blood Pressure Non-Invasive 58 mm[Hg] CARLEE REICHFIELD DO [facility] 10-28-2023 17:42-0400 Systolic Blood Pressure Non-Invasive 84 mm[Hg] CARLEE REICHFIELD DO [facility] 10-28-2023 17:25-0400 Body height 182.9 cm CARLEE REICHFIELD DO [facility] 10-28-2023 17:25-0400 Body temperature 97.34 [degF] CARLEE REICHFIELD DO [facility] 10-28-2023 17:25-0400 Body weight 109.1 kg CARLEE REICHFIELD DO [facility] 10-28-2023 17:25-0400 Heart rate 60 /min CARLEE REICHFIELD DO [facility] 10-28-2023 17:25-0400 Respiratory rate 18 /min CARLEE REICHFIELD DO [facility] 10-27-2023 10:11-[address] YANCI GILLILAND MD [facility] 10-27-2023 10:11-[address] YANCI Marquis MD [facility] 10-27-2023 10:11-0400 Body temperature 97.7 [degF] DR YANCI GILLILAND MD [facility] 10-27-2023 10:11-0400 Diastolic Blood Pressure Non-Invasive 97 mm[Hg] DR YANCI GILLILAND MD [facility] 10-27-2023 10:11-0400 Heart rate 96 /min DR YANCI GILLILAND MD [facility] 10-27-2023 10:11-0400 Respiratory rate 18 /min DR YANCI GILLILAND MD [facility] 10-27-2023 10:11-0400 Systolic Blood Pressure Non-Invasive 144 mm[Hg] DR YANCI GILLILAND MD [facility] 08-23-2023 18:16-0400 Blood Pressure Cuff Size KULDEEP BRADLEY MD [facility] 08-23-2023 18:16-0400 Blood Pressure Location KULDEEP BRADLEY MD [facility] 08-23-2023 18:16-0400 Blood Pressure Method KULDEEP BRADLEY MD [facility] 08-23-2023 18:16-0400 Body temperature 97.16 [degF] KULDEEP BRADLEY MD [facility] 08-23-2023 18:16-0400 Diastolic Blood Pressure Non-Invasive 72 mm[Hg] KULDEEP BRADLEY MD [facility] 08-23-2023 18:16-0400 Heart rate 97 /min KULDEEP BRADLEY MD [facility] 08-23-2023 18:16-0400 Respiratory rate 18 /min KULDEEP BRADLEY MD [facility] 08-23-2023 18:16-0400 Systolic Blood Pressure Non-Invasive 105 mm[Hg] KULDEEP BRADLEY MD [facility] 08-01-2023 11:38-0400 Body temperature 97.34 [degF] SILVANO [employer] [facility] 08-01-2023 11:38-0400 Diastolic Blood Pressure Non-Invasive 85 mm[Hg] SILVANO DODSON [employer] [facility] 08-01-2023 11:38-0400 Heart rate 82 /min SILVANO [employer]PER[employer] [facility] 08-01-2023 11:38-0400 Reason For Taking VItal Signs SILVANO [employer]SON [employer]IE[employer]PER[employer] [facility] 08-01-2023 11:38-0400 Respiratory rate 22 /min SILVANO KAISERER [employer]IE[employer]PERATOR[employer]SULT[employer] [facility] 08-01-2023 11:38-0400 Systolic Blood Pressure Non-Invasive 130 mm[Hg] SILVANO [employer]IE[employer] OPERATOR[employer] CONSULT[employer] [facility] 08-01-2023 08:51-0400 Heart rate 80 /min SILVANO [employer]PERATOR[employer] [facility] 08-01-2023 08:02-0400 Heart rate 74 /min SILVANO [employer]IE[employer] OPERATOR[employer] CONS[employer] [facility] 08-01-2023 07:58-0400 Body weight 121.7 kg SILVANOManish [employer] CHIEF OPERATOR[employer] [facility] 08-01-2023 07:27-0400 Body temperature 97.52 [degF] SILVANO [employer]IEF OPERATOR[employer] CONSULT[employer] [facility] 08-01-2023 07:27-0400 Diastolic Blood Pressure Non-Invasive 87 mm[Hg] SILVANO [employer]IE[employer] OPERATOR[employer] CONSULTANT [facility] 08-01-2023 07:27-0400 Heart rate 85 /min SILVANO [employer]IE[employer]PERATOR[employer] [facility] 08-01-2023 07:27-0400 Reason For Taking VItal Signs SILVANO SAABER GROUP CHIEF OPERATOR-J2EE CONSULTANT [facility] 08-01-2023 07:27-0400 Respiratory rate 24 /min SILVANO KAISERER GROUP CHIEF OPERATOR-J2EE CONSULTANT [facility] 08-01-2023 07:27-0400 Systolic Blood Pressure Non-Invasive 126 mm[Hg] SILVANO KAISERER GROUP CHIEF OPERATOR-J2EE CONSULTANT [facility] 08-01-2023 04:58-0400 Body height 121.7 cm SILVANO KAPPER GROUP CHIEF OPERATOR-J2EE CONSULTANT [facility] 07-31-2023 15:57-0400 Heart rate 80 /min SILVANO KAPPER GROUP CHIEF OPERATOR-J2EE CONSULTANT [facility] 07-31-2023 10:02-0400 Heart rate 78 /min SILVANO KAPPER GROUP CHIEF OPERATOR-J2EE CONSULTANT [facility] 07-31-2023 03:15-0400 Body temperature 96.44 [degF] SILVANO KAPPER GROUP CHIEF OPERATOR-J2EE CONSULTANT [facility] 07-31-2023 03:15-0400 Heart rate 79 /min SILVANO KAPPER GROUP CHIEF OPERATOR-J2EE CONSULTANT [facility] 07-30-2023 22:55-0400 Heart rate 82 /min SILVANO KAPPER GROUP CHIEF OPERATOR-J2EE CONSULTANT [facility] 07-30-2023 18:50-0400 Blood Pressure Location SILVANO KAPPER GROUP CHIEF OPERATOR-J2EE CONSULTANT [facility] 07-30-2023 18:50-0400 Blood Pressure Method SILVANO KAPPER GROUP CHIEF OPERATOR-J2EE CONSULTANT [facility] 07-30-2023 18:45-0400 Heart rate 96 /min SILVANO KAPPER GROUP CHIEF OPERATOR-J2EE CONSULTANT [facility] 07-30-2023 16:29-0400 Blood Pressure Location SILVANO KAPPER GROUP CHIEF OPERATOR-J2EE CONSULTANT [facility] 07-30-2023 16:29-0400 Blood Pressure Method SILVANO KAPPER GROUP CHIEF OPERATOR-J2EE CONSULTANT [facility] 07-30-2023 14:37-0400 Body height 182.9 cm SILVANO KAPPER GROUP CHIEF OPERATOR-J2EE CONSULTANT [facility] 07-30-2023 14:37-0400 Body weight 125.5 kg SILVANO KAPPER GROUP CHIEF OPERATOR-J2EE CONSULTANT [facility] 07-30-2023 14:37-0400 Body weight 37.52 kg/m2 SILVANO KAPPER GROUP CHIEF OPERATOR-J2EE CONSULTANT [facility] 07-30-2023 10:52-0400 Blood Pressure Cuff Size SILVANO KAPPER GROUP CHIEF OPERATOR-J2EE CONSULTANT [facility] 07-30-2023 10:52-0400 Blood Pressure Location SILVANO DODSON GROUP CHIEF OPERATOR-J2EE CONSULTANT [facility] 07-30-2023 10:52-0400 Blood Pressure Method SILVANO DODSON GROUP CHIEF OPERATOR-J2EE CONSULTANT [facility] 07-30-2023 10:52-0400 Body weight 128.1 kg SILVANO DODSON GROUP CHIEF OPERATOR-J2EE CONSULTANT [facility] 07-20-2023 18:12-0400 Blood Pressure Cuff Size NIDAL CHOUJAA DO [facility] 07-20-2023 18:12-0400 Blood Pressure Location NIDAL CHOUJAA DO [facility] 07-20-2023 18:12-0400 Body height 182.9 cm NIDAL CHOUJAA DO [facility] 07-20-2023 18:12-0400 Body temperature 97.7 [degF] NIDAL CHOUJAA DO [facility] 07-20-2023 18:12-0400 Body weight 118.2 kg NIDAL CHOUJAA DO [facility] 07-20-2023 18:12-0400 Diastolic Blood Pressure Non-Invasive 86 mm[Hg] NIDAL CHOUJAA DO [facility] 07-20-2023 18:12-0400 Heart rate 96 /min NIDAL CHOUJAA DO [facility] 07-20-2023 18:12-0400 Respiratory rate 18 /min NIDAL CHOUJAA DO [facility] 07-20-2023 18:12-0400 Systolic Blood Pressure Non-Invasive 155 mm[Hg] NIDAL CHOUJAA DO [facility] 07-20-2023 09:50-0400 Blood Pressure Cuff Size NIDAL CHOUJAA DO [facility] 07-20-2023 09:50-0400 Blood Pressure Location NIDAL CHOUJAA DO [facility] 07-20-2023 09:50-0400 Blood Pressure Method NIDAL CHOUJAA DO [facility] 07-20-2023 09:50-0400 Body height 182.9 cm NIDAL CHOUJAA DO [facility] 07-20-2023 09:50-0400 Body temperature 97.7 [degF] NIDAL CHOUJAA DO [facility] 07-20-2023 09:50-0400 Body weight 118.2 kg NIDAL CHOUJAA DO [facility] 07-20-2023 09:50-0400 Diastolic Blood Pressure Non-Invasive 109 mm[Hg] NIDAL CHOUJAA DO [facility] 07-20-2023 09:50-0400 Heart rate 99 /min NIDAL CHOUJAA DO [facility] 07-20-2023 09:50-0400 Respiratory rate 20 /min NIDAL CHOUJAA DO [facility] 07-20-2023 09:50-0400 Systolic Blood Pressure Non-Invasive 165 mm[Hg] NIDAL CHOUJAA DO [facility] 07-07-2023 18:28-0400 Body temperature 98.06 [degF] JILLIAN KELLEY MD [facility] 07-07-2023 18:28-0400 Body weight 118.4 kg JILLIAN KELLEY MD [facility] 07-07-2023 18:28-0400 Diastolic Blood Pressure Non-Invasive 101 mm[Hg] JILLIAN KELLEY MD [facility] 07-07-2023 18:28-0400 Heart rate 103 /min JILLIAN KELLEY MD [facility] 07-07-2023 18:28-0400 Respiratory rate 18 /min JILLIAN KELLEY MD [facility] 07-07-2023 18:28-0400 Systolic Blood Pressure Non-Invasive 155 mm[Hg] JILLIAN KELLEY MD [facility] 06-29-2023 06:17-0400 Body temperature 98.1 [degF] [facility] 06-29-2023 06:17-0400 Diastolic blood pressure 85 mm[Hg] [facility] 06-29-2023 06:17-0400 Heart rate 100 /min [facility] 06-29-2023 06:17-0400 Respiratory rate 19 /min [facility] 06-29-2023 06:17-0400 SaO2% (BldA) [Mass fraction] 96 % [facility] 06-29-2023 06:17-0400 Systolic blood pressure 130 mm[Hg] [facility] 06-29-2023 05:19-0400 Body height 182.88 cm [facility] 06-29-2023 05:19-0400 Body mass index (BMI) [Ratio] 36.8 kg/m2 [facility] 06-29-2023 05:19-0400 Body weight 123 kg [facility] 06-28-2023 18:12-0400 Blood Pressure Cuff Size KULDEEP BRADLEY MD [facility] 06-28-2023 18:12-0400 Blood Pressure Location KULDEEP BRADLEY MD [facility] 06-28-2023 18:12-0400 Blood Pressure Method KULDEEP BRADLEY MD [facility] 06-28-2023 18:12-0400 Body temperature 96.98 [degF] KULDEEP BRADLEY MD [facility] 06-28-2023 18:12-0400 Diastolic Blood Pressure Non-Invasive 89 mm[Hg] KULDEEP BRADLEY MD [facility] 06-28-2023 18:12-0400 Heart rate 98 /min KULDEEP BRADLEY MD [facility] 06-28-2023 18:12-0400 Respiratory rate 18 /min KULDEEP BRADLEY MD [facility] 06-28-2023 18:12-0400 Systolic Blood Pressure Non-Invasive 136 mm[Hg] KULDEEP BRADLEY MD [facility] 06-06-2023 20:01-0500 Diastolic Blood Pressure Non-Invasive 88 mm[Hg] AZALEA PAYNE DO [facility] 06-06-2023 20:01-0500 Heart rate 73 /min AZALEA PAYNE DO [facility] 06-06-2023 20:01-0500 Respiratory rate 18 /min AZALEA PAYNE DO [facility] 06-06-2023 20:01-0500 Systolic Blood Pressure Non-Invasive 120 mm[Hg] AZALEA FROMMELT DO [facility] 06-06-2023 18:53-0500 Diastolic Blood Pressure Non-Invasive 92 mm[Hg] AZALEA FROMMELT DO [facility] 06-06-2023 18:53-0500 Heart rate 73 /min AZALEA FROMMELT DO [facility] 06-06-2023 18:53-0500 Respiratory rate 20 /min AZALEA FROMMELT DO [facility] 06-06-2023 18:53-0500 Systolic Blood Pressure Non-Invasive 111 mm[Hg] AZALEA FROMMELT DO [facility] 06-06-2023 18:34-0500 Diastolic Blood Pressure Non-Invasive 68 mm[Hg] AZALEA FROMMELT DO [facility] 06-06-2023 18:34-0500 Heart rate 73 /min AZALEA THORPET DO [facility] 06-06-2023 18:34-0500 Respiratory rate 20 /min AZALEA FROMMELT DO [facility] 06-06-2023 18:34-0500 Systolic Blood Pressure Non-Invasive 102 mm[Hg] AZALEA FROMMELT DO [facility] 06-06-2023 16:42-0500 Body temperature 98.24 [degF] AZALEA GARCIAMELT DO [facility] 06-06-2023 16:42-0500 Body weight 118.2 kg AZALEA FROMMELT DO [facility] 05-29-2023 21:18-0500 Blood Pressure Location [facility] 05-29-2023 21:18-0500 Blood Pressure Method JULY HOPEWELL GROUP CHIEF OPERATOR-J2EE CONSULTANT [facility] 05-29-2023 21:18-0500 Body temperature 98.06 [degF] JULY HOPEWELL GROUP CHIEF OPERATOR-J2EE CONSULTANT [facility] 05-29-2023 21:18-0500 Diastolic Blood Pressure Non-Invasive 98 mm[Hg] JULY HOPEWELL GROUP CHIEF OPERATOR-J2EE CONSULTANT [facility] 05-29-2023 21:18-0500 Heart rate 97 /min JULY HOPEWELL GROUP CHIEF OPERATOR-J2EE CONSULTANT [facility] 05-29-2023 21:18-0500 Reason For Taking VItal Signs JULY HOPEWELL GROUP CHIEF OPERATOR-J2EE CONSULTANT [facility] 05-29-2023 21:18-0500 Respiratory rate 16 /min JULY HOPEWELL GROUP CHIEF OPERATOR-J2EE CONSULTANT [facility] 05-29-2023 21:18-0500 Systolic Blood Pressure Non-Invasive 130 mm[Hg] JULY HOPEWELL GROUP CHIEF OPERATOR-J2EE CONSULTANT [facility] 05-29-2023 16:26-0500 Body temperature 97.34 [degF] JULY HOPEWELL GROUP CHIEF OPERATOR-J2EE CONSULTANT [facility] 05-29-2023 16:26-0500 Diastolic Blood Pressure Non-Invasive 100 mm[Hg] JULY HOPEWELL GROUP CHIEF OPERATOR-J2EE CONSULTANT [facility] 05-29-2023 16:26-0500 Heart rate 94 /min JULY HOPEWELL GROUP CHIEF OPERATOR-J2EE CONSULTANT [facility] 05-29-2023 16:26-0500 Reason For Taking VItal Signs JULY HOPEWELL GROUP CHIEF OPERATOR-J2EE CONSULTANT [facility] 05-29-2023 16:26-0500 Respiratory rate 16 /min JULY HOPEWELL GROUP CHIEF OPERATOR-J2EE CONSULTANT [facility] 05-29-2023 16:26-0500 Systolic Blood Pressure Non-Invasive 132 mm[Hg] JULY HOPEWELL GROUP CHIEF OPERATOR-J2EE CONSULTANT [facility] 05-29-2023 11:54-0500 Body temperature 97.34 [degF] JULY HOPEWELL GROUP CHIEF OPERATOR-J2EE CONSULTANT [facility] 05-29-2023 11:54-0500 Diastolic Blood Pressure Non-Invasive 97 mm[Hg] JULY HOPEWELL GROUP CHIEF OPERATOR-J2EE CONSULTANT [facility] 05-29-2023 11:54-0500 Heart rate 90 /min JULY HOPEWELL GROUP CHIEF OPERATOR-J2EE CONSULTANT [facility] 05-29-2023 11:54-0500 Reason For Taking VItal Signs JULY HOPEWELL GROUP CHIEF OPERATOR-J2EE CONSULTANT [facility] 05-29-2023 11:54-0500 Respiratory rate 16 /min JULY HOPEWELL GROUP CHIEF OPERATOR-J2EE CONSULTANT [facility] 05-29-2023 11:54-0500 Systolic Blood Pressure Non-Invasive 137 mm[Hg] JULY HOPEWELL GROUP CHIEF OPERATOR-J2EE CONSULTANT [facility] 05-29-2023 06:17-0500 Heart rate 91 /min JULY HOPEWELL GROUP CHIEF OPERATOR-J2EE CONSULTANT [facility] 05-29-2023 02:42-0500 Blood Pressure Location JULY HOPEWELL GROUP CHIEF OPERATOR-J2EE CONSULTANT [facility] 05-29-2023 02:42-0500 Blood Pressure Method JULY HOPEWELL GROUP CHIEF OPERATOR-J2EE CONSULTANT [facility] 05-29-2023 01:40-0500 Heart rate 99 /min GISSELL HOPEWELL GROUP CHIEF OPERATOR-J2EE CONSULTANT [facility] 05-29-2023 01:14-0500 Body height 182.9 cm GISSELL HOPEWELL GROUP CHIEF OPERATOR-J2EE CONSULTANT [facility] 05-29-2023 01:14-0500 Body weight 129.3 kg GISSELL HOPEWELL GROUP CHIEF OPERATOR-J2EE CONSULTANT [facility] 05-29-2023 01:14-0500 Body weight 38.65 kg/m2 GISSELL HOPEWELL GROUP CHIEF OPERATOR-J2EE CONSULTANT [facility] 05-29-2023 01:02-0500 Blood Pressure Cuff Size GISSELL HOPEWELL GROUP CHIEF OPERATOR-J2EE CONSULTANT [facility] 05-29-2023 01:02-0500 Blood Pressure Location GISSELL HOPEWELL GROUP CHIEF OPERATOR-J2EE CONSULTANT [facility] 05-29-2023 01:02-0500 Blood Pressure Method JULY HOPEWELL GROUP CHIEF OPERATOR-J2EE CONSULTANT [facility] 05-29-2023 00:36-0500 Blood Pressure Cuff Size GISSELL HOPEWELL GROUP CHIEF OPERATOR-J2EE CONSULTANT [facility] 05-29-2023 00:36-0500 Heart rate 101 /min JULY HOPEWELL GROUP CHIEF OPERATOR-J2EE CONSULTANT [facility] 05-29-2023 00:33-0500 Blood Pressure Cuff Size GISSELL HOPEWELL GROUP CHIEF OPERATOR-J2EE CONSULTANT [facility] 05-29-2023 00:33-0500 Heart rate 112 /min GISSELL HOPEWELL GROUP CHIEF OPERATOR-J2EE CONSULTANT [facility] 05-28-2023 22:51-0500 Body height 182.9 cm GISSELL HOPEWELL GROUP CHIEF OPERATOR-J2EE CONSULTANT [facility] 05-28-2023 22:51-0500 Body temperature 99.14 [degF] JULY HOPEWELL GROUP CHIEF OPERATOR-J2EE CONSULTANT [facility] 05-28-2023 22:51-0500 Body weight 120.5 kg JULY HOPEWELL GROUP CHIEF OPERATOR-J2EE CONSULTANT [facility] 05-15-2023 19:43-0500 Diastolic Blood Pressure Non-Invasive 74 mm[Hg] XAVI RASMUSSEN DO [facility] 05-15-2023 19:43-0500 Heart rate 105 /min XAVI RASMUSSEN DO [facility] 05-15-2023 19:43-0500 Respiratory rate 20 /min XAVI RASMUSSEN DO [facility] 05-15-2023 19:43-0500 Systolic Blood Pressure Non-Invasive 108 mm[Hg] XAVI RASMUSSEN DO [facility] 05-15-2023 18:51-0500 Heart rate 100 /min XAVI RASMUSSEN DO [facility] 05-15-2023 18:51-0500 Respiratory rate 20 /min XAVI RASMUSSEN DO [facility] 05-15-2023 18:36-0500 Body height 182.9 cm XAVI RASMUSSEN DO [facility] 05-15-2023 18:36-0500 Body temperature 98.24 [degF] XAVI RASMUSSEN DO [facility] 05-15-2023 18:36-0500 Body weight 118.2 kg XAVI RASMUSSEN DO [facility] 05-15-2023 18:36-0500 Diastolic Blood Pressure Non-Invasive 88 mm[Hg] XAVI RASMUSSEN DO [facility] 05-15-2023 18:36-0500 Heart rate 99 /min XAVI RASMUSSEN DO [facility] 05-15-2023 18:36-0500 Respiratory rate 24 /min XAVI RASMUSSEN DO [facility] 05-15-2023 18:36-0500 Systolic Blood Pressure Non-Invasive 116 mm[Hg] XAVI RASMUSSEN DO [facility] 05-15-2023 18:33-0500 SaO2% (BldA) [Mass fraction] 53 % XAVI RASMUSSEN DO [facility] 04-25-2023 22:22-0500 Diastolic blood pressure 112 mm[Hg] AZALEA FROMMELT DO [facility] 04-25-2023 22:22-0500 Heart rate 98 /min AZALEA FROMMELT DO [facility] 04-25-2023 22:22-0500 Respiratory rate 20 /min AZALEA FROMMELT DO [facility] 04-25-2023 22:22-0500 Systolic blood pressure 175 mm[Hg] AZALEA FROMMELT DO [facility] 04-25-2023 21:34-0500 Blood Pressure Cuff Size AZALEA FROMMELT DO [facility] 04-25-2023 21:34-0500 Blood Pressure Location AZALEA FROMMELT DO [facility] 04-25-2023 21:34-0500 Blood Pressure Method AZALEA FROMMELT D O [facility] 04-25-2023 21:34-0500 Diastolic Blood Pressure Non-Invasive 112 mm[Hg] AZALEA FROMMELT DO [facility] 04-25-2023 21:34-0500 Heart rate 97 /min AZALEA FROMMELT DO [facility] 04-25-2023 21:34-0500 Respiratory rate 20 /min AZALEA FROMMELT DO [facility] 04-25-2023 21:34-0500 Systolic Blood Pressure Non-Invasive 175 mm[Hg] AZALEA FROMMELT DO [facility] 04-25-2023 20:45-0500 Heart rate 95 /min AZALEA FROMMELT DO [facility] 04-25-2023 20:45-0500 Respiratory rate 20 /min AZALEA FROMMELT DO [facility] 04-25-2023 20:13-0500 Heart rate 100 /min AZALEA FROMMELT DO [facility] 04-25-2023 19:36-0500 Blood Pressure Cuff Size AZALEA FROMMELT DO [facility] 04-25-2023 19:36-0500 Blood Pressure Location AZALEA FROMMELT DO [facility] 04-25-2023 19:36-0500 Blood Pressure Method AZALEA FROMMELT D O [facility] 04-25-2023 19:36-0500 Body height 182.9 cm AZALEA FROMMELT DO [facility] 04-25-2023 19:36-0500 Body temperature 96.8 [degF] AZALEA FROMMELT DO [facility] 04-25-2023 19:36-0500 Body weight 120.5 kg AZALEA FROMMELT DO [facility] 04-25-2023 19:36-0500 Diastolic Blood Pressure Non-Invasive 108 mm[Hg] AZALEA PAYNE DO [facility] 04-25-2023 19:36-0500 Heart rate 105 /min AZALEA PAYNE DO [facility] 04-25-2023 19:36-0500 Reason For Taking VItal Signs AZALEA PAYNE DO [facility] 04-25-2023 19:36-0500 Systolic Blood Pressure Non-Invasive 160 mm[Hg] AZALEA PAYNE DO [facility] 01-02-2023 09:52-0400 Body height 182.9 cm KULDEEP BRADLEY MD [facility] 01-02-2023 09:52-0400 Body temperature 98.24 [degF] KULDEEP BRADLEY MD [facility] 01-02-2023 09:52-0400 Body weight 118.2 kg KULDEEP BRADLEY MD [facility] 01-02-2023 09:52-0400 Diastolic Blood Pressure Non-Invasive 97 1 KULDEEP BRADLEY MD [facility] 01-02-2023 09:52-0400 Heart rate 82 /min KULDEEP BRADLEY MD [facility] 01-02-2023 09:52-0400 Respiratory rate 18 /min KULDEEP BRADLEY MD [facility] 01-02-2023 09:52-0400 Systolic Blood Pressure Non-Invasive 154 1 KULDEEP BRADLEY MD [facility] 09-21-2022 11:06-0400 Body temperature 98.06 [degF] AZALEA FROMMELT DO [facility] 09-21-2022 11:06-0400 Diastolic Blood Pressure Non-Invasive 103 1 AZALEA FROMMELT DO [facility] 09-21-2022 11:06-0400 Heart rate 95 /min AZALEA FROMredITT DO [facility] 09-21-2022 11:06-0400 Respiratory rate 18 /min AZALEA FROMMELT DO [facility] 09-21-2022 11:06-0400 Systolic Blood Pressure Non-Invasive 157 1 AZALEA THORPET DO [facility] 11-05-2021 06:52-0400 Body temperature 97.88 [degF] EVERARDO MONTOYA MD [facility] 11-05-2021 06:52-0400 Diastolic blood pressure 97 mm[Hg] EVERARDO MONTOYA MD [facility] 11-05-2021 06:52-0400 Heart rate 72 /min EVERARDO MONTOYA MD [facility] 11-05-2021 06:52-0400 Mean blood pressure 125 mm[Hg] EVERARDO MONTOYA MD [facility] 11-05-2021 06:52-0400 Respiratory rate 18 /min EVERARDO MONTOYA MD [facility] 11-05-2021 06:52-0400 Systolic blood pressure 181 mm[Hg] EVERARDO MONTOYA MD [facility] 08-27-2021 09:46-0400 Diastolic blood pressure 69 mm[Hg] [facility] Work Phone: 08-27-2021 09:46-0400 Heart rate 73 /min [facility] Work Phone: 08-27-2021 09:46-0400 Respiratory rate 15 /min [facility] Work Phone: 08-27-2021 09:46-0400 SaO2% (BldA) [Mass fraction] 96 % [facility] Work Phone: 08-27-2021 09:46-0400 Systolic blood pressure 148 mm[Hg] [facility] Work Phone: 08-27-2021 08:41-0400 Body height 182.88 cm [facility] Work Phone: 08-27-2021 08:41-0400 Body mass index (BMI) [Ratio] 34.5 kg/m2 [facility] Work Phone: 08-27-2021 08:41-0400 Body temperature 98.3 [degF] [facility] Work Phone: 08-27-2021 08:41-0400 Body weight 115.66 kg [facility] Work Phone: 07-27-2021 14:00-0400 Diastolic blood pressure 88 mm[Hg] Daniela O'Clemente PT Work Phone: [facility] 07-27-2021 14:00-0400 Heart rate 82 /min Daniela O'Clemente PT Work Phone: [facility] 07-27-2021 14:00-0400 SaO2% (BldA) [Mass fraction] 97 % Daniela O'Clemente PT Work Phone: [facility] 07-27-2021 14:00-0400 Systolic blood pressure 130 mm[Hg] Daniela O'Clemente PT Work Phone: [facility] 07-25-2021 09:06-0400 Body height 182.9 cm Mary Mcnulty MD Work Phone: [facility] 07-25-2021 09:06-0400 Body weight 113.81 kg Mary Mcnulty MD Work Phone: [facility] 07-25-2021 09:06-0400 Heart rate 88 /min Mary Mcnulty MD Work Phone: [facility] 07-25-2021 09:06-0400 SaO2% (BldA) [Mass fraction] 98 % Mary Mcnulty MD Work Phone: [facility] 03-12-2019 19:03-0500 Pulse (Heart Rate) 85 /min Florin Liu [facility], [place] 03-12-2019 18:26-0500 BMI (Body Mass Index) 34.58 kg/m2 [facility] [place] 03-12-2019 18:26-0500 Body Temperature 98.4 [degF] Florin [facility], [place] 03-12-2019 18:26-0500 [facility] [place] 03-12-2019 18:26-0500 BP Diastolic 106 mm[Hg] [facility] [place] 03-12-2019 18:26-0500 BP Systolic 174 mm[Hg] [facility] [place] 03-12-2019 18:26-0500 [place] 182.9 [place] 03-12-2019 18:26-0500 Pulse Oximetry 96 % [facility] , [place] 03-12-2019 18:26-0500 Respiratory Rate 20 /min Florin [facility], [place] 01-30-2019 14:51-0400 BP Diastolic 94 mm[Hg] [facility] [place] 01-30-2019 14:51-0400 BP Systolic 140 mm[Hg] [facility] [place] 01-30-2019 14:51-0400 Pulse (Heart Rate) 78 /min [facility] [place] 01-30-2019 14:51-0400 Pulse Oximetry 98 % [facility] [place] 01-30-2019 14:51-0400 Respiratory Rate 17 /min [facility] [place] 01-30-2019 12:14-0400 BMI (Body Mass Index) 33.91 kg/m2 Louisa Greerisingaleah V[facility]os [facility] [place], [place] 01-30-2019 12:14-0400 Body Temperature 98.2 [degF] Louisa [facility], [place] 01-30-2019 12:14-0400 Body weight 113.4 kg Loiusa [facility], [place] 01-30-2019 12:14-0400 Height 182.9 cm [facility] [place] 12-17-2018 18:53-0400 Body Temperature 97.81 [degF] [facility] [place] 12-17-2018 18:53-0400 BP Diastolic 104 mm[Hg] [facility] [place] 12-17-2018 18:53-0400 BP Systolic 165 mm[Hg] [facility] [place] 12-17-2018 18:53-0400 Pulse (Heart Rate) 88 /min [facility] [place] 12-17-2018 18:53-0400 Respiratory Rate 16 /min [facility] [facility] [place] 12-16-2018 22:34-0400 BP Diastolic 96 mm[Hg] [facility] [place] [place] 12-16-2018 22:34-0400 BP Systolic 165 mm[Hg] [facility] [place] 12-16-2018 22:34-0400 Pulse (Heart Rate) 78 /min [facility], [place] 12-16-2018 22:34-0400 Pulse Oximetry 98 % [facility], [place] 12-16-2018 22:34-0400 Respiratory Rate 16 /min [facility], [place] 12-16-2018 18:14-0400 BMI (Body Mass Index) 33.91 kg/m2 Shashank Viveros [facility] [place], [place] 12-16-2018 18:14-0400 Body Temperature 98.2 [degF] Shashank Viveros [facility], [place] 12-16-2018 18:14-0400 Body weight 113.4 kg Shashank Viveros [facility] [place], [place] Encounters Encounter Date Encounter Type Care Provider Facility Start: 10-18-2024 End: 10-18-2024 Orders Only Haley Sheth PA-C Work Phone: [facility] - [place] Kelley Comment on above: Left foot pain (Prim ananth Dx) Start: 10-13-2024 End: 10-13-2024 Office outpatient visit 15 minutes Ricardo Smith MD Work Phone: [facility] [place] Comment on above: Left leg cellulitis (Primary Dx); Charcot joint of left foot; Type 2 diabetes mellitus with diabetic neuropathy, unspecified whether residential insulin use (HCC) Start: 10-13-2024 End: 10-13-2024 ambulatory CARLEE [facility] Start: 10-06-2024 End: 10-06-2024 Office outpatient visit 15 minutes Haley Sheth PA-C Work Phone: [facility] - [place] Comment on above: Charcot joint of lef t foot (Primary Dx) Start: 10-06-2024 End: 10-06-2024 [facility] Start: 09-29-2024 End: 10-14-2024 Telephone encounter Ricardo Smith MD Work Phone: [facility] [place] Start: 09-29-2024 End: 09-29-2024 Office outpatient new 30 minutes Ricardo Smith MD Work Phone: [facility] - [place] Comment on above: Charcot joint of lef t foot (Primary Dx) Start: 09-29-2024 End: 09-29-2024 ambulatory CARLEE MECHE [facility] Start: 09-24-2024 End: 09-24-2024 Orders Only Haley Sheth PA-C Work Phone: [facility] [place] Comment on above: Left foot pain (Prim ananth Dx) Start: 09-24-2024 End: 09-24-2024 SAME DAY STAY JOSEPH VALENTINE MD [facility] Start: 09-22-2024 ambulatory CARLEE ETDRAGAN R GROUP CHIEF OPERATOR-J2EE CONSULTANT Facility:[facility] Start: 09-22-2024 End: 09-22-2024 ambulatory CARLEE MECHE GROUP CHIEF OPERATOR-J2EE CONSULTANT Facility:[facility] Start: 09-22-2024 End: 09-22-2024 Patient encounter procedure ABRAHAM BRIAN MD [facility] Start: 09-01-2024 End: 09-01-2024 Emergency department patient visit KULDEEP BRADLEY MD [facility] Start: 08-13-2024 End: 08-13-2024 ambulatory RICARDO LARA DO Facility:[facility] Start: 08-13-2024 End: 08-13-2024 Patient encounter procedure RICARDO LARA DO [facility] Start: 06-29-2024 End: 07-22-2024 ambulatory RICARDO LARA DO Facility:[facility] Start: 05-18-2024 End: 05-18-2024 ambulatory KRIS RAYMOND MD Facility:[facility] Start: 05-18-2024 End: 05-18-2024 Patient encounter procedure KRIS RAYMOND MD [facility] Start: 05-13-2024 End: 05-13-2024 ambulatory CARLEE MECHE GROUP CHIEF OPERATOR-J2EE CONSULTANT Facility:[facility] Start: 05-13-2024 End: 05-13-2024 Patient encounter procedure CARLEE MECHE GROUP CHIEF OPERATOR-J2EE CONSULTANT [facility] Start: 05-11-2024 End: 05-11-2024 ambulatory CHERYLE CANALES PA-C Facility:[facility] Start: 05-11-2024 End: 05-11-2024 Patient encounter procedure CARLEE MECHE GROUP CHIEF OPERATOR-J2EE CONSULTANT [facility] Start: 05-03-2024 End: 05-03-2024 ambulatory Destiny Ram RN NURSE MANAGER [employer] Comment on above: High Blood Sugar Start: 03-16-2024 End: 03-16-2024 Emergency department patient visit Abraham Kwon Facility:[facility] Start: 03-16-2024 End: 03-16-2024 Emergency department patient visit [facility]E [facility] Facility:[facility] Start: 02-22-2024 End: 02-22-2024 ambulatory Loree Pérez RN NURSE MANAGER [employer] Comment on above: Wound Check Start: 01-12-2024 End: 01-12-[address] GRACIELA HAWKINS MD Facility:[facility] Start: 01-12-2024 End: 01-12-[address] GRACIELA HAWKINS MD [facility] Start: 12-24-2023 End: 12-24-2023 ambulatory Rosi Ordonez RN NURSE MANAGER [employer] Comment on above: Information Start: 11-24-2023 ambulatory CARLEE HOSTETLE R GROUP CHIEF OPERATOR-J2EE CONSULTANT Facility:[facility] Start: 11-24-2023 End: 11-24-2023 ambulatory CARLEE MECHE Facility:[facility] Start: 11-19-2023 ambulatory CARLEE HOSTETLE R GROUP CHIEF OPERATOR-J2EE CONSULTANT Facility:[facility] Start: 11-10-2023 End: 11-10-2023 ambulatory CARLEE MECHE GROUP CHIEF OPERATOR-J2EE CONSULTANT Facility:[facility] Start: 11-10-2023 End: 11-10-2023 Patient encounter procedure CARLEE MECHE GROUP CHIEF OPERATOR-J2EE CONSULTANT [facility] Start: 10-28-2023 ambulatory CARLEE Rivero GROUP CHIEF OPERATOR-J2EE CONSULTANT Facility:[facility] Start: 10-28-2023 End: 10-28-2023 Emergency department patient visit CARLEE RASHID DO [facility] Start: 10-27-2023 End: 10-27-2023 Emergency department patient visit DR YANCI GILLILAND MD [facility] Start: 10-11-2023 End: 10-11-2023 Emergency department patient visit CARLEE MCGREGOR Facility:[facility] Start: 08-24-2023 End: 08-24-2023 Emergency department patient visit [facility] Facility:[facility] Start: 08-23-2023 End: 08-23-2023 Emergency department patient visit KULDEEP BRADLEY MD [facility] Start: 07-30-2023 End: 08-01-2023 Emergency department patient visit KENYON YAP MD [facility] Facility:[facility] Start: 07-30-2023 End: 08-01-2023 Observation SILVANO DODSON GROUP CHIEF OPERATOR-J2EE CONSULTANT [facility] Start: 07-20-2023 End: 07-20-2023 Emergency department patient visit NIDREY CHOUJAA DO [facility] Start: 07-20-2023 End: 07-20-2023 ambulatory GUADALUPE RUGGIERO MD Facility:[facility] Start: 07-20-2023 End: 07-20-2023 Patient encounter procedure NIDAL CHOUJAA DO [facility] Start: 07-20-2023 End: 07-20-2023 Emergency department patient visit CONSUELO COLEMAN DO [facility] Start: 07-07-2023 End: 07-07-2023 Emergency department patient visit JILLIAN KELLEY MD [facility] Start: 06-29-2023 End: 06-29-2023 Emergency department patient visit [facility] Work Phone: Start: 06-28-2023 End: 06-28-2023 Emergency department patient visit KULDEEP BRADLEY MD [facility] Start: 06-12-2023 ambulatory Chantal Macias RN NU RSE MANAGER [employer] Comment on above: Swelling Start: 06-09-2023 ambulatory Tatum Medeiros RN N URSE MANAGER [employer] Comment on above: Fall Start: 06-06-2023 End: 06-06-2023 Emergency department patient visit AZALEA PAYNE DO [facility] Start: 05-29-2023 End: 06-02-2023 Evaluation and management of inpatient AYESHA PATEL MD Facility:[facility] Start: 05-28-2023 End: 05-29-2023 Evaluation and management of inpatient GISSELL ORNELAS APRN-J2EE CONSULTANT [facility] Start: 05-28-2023 ambulatory GUADALUPE RUGGIERO MD Facilit y:B Start: 05-15-2023 End: 05-15-2023 Emergency department patient visit XAVI RASMUSSEN DO [facility] Start: 05-01-2023 End: 05-01-2023 ambulatory GUADALUPE RUGGIERO MD Facility:[facility] Start: 04-25-2023 End: 04-25-2023 Emergency department patient visit AZALEA PAYNE DO [facility] Start: 04-06-2023 End: 04-06-2023 ambulatory ALYSSA BARR MD Facility:[facility] Start: 02-26-2023 ambulatory Blanka (Rn) Chadwick RN NURSE MANAGER [employer] Comment on above: Cough Start: 01-02-2023 End: 01-02-2023 Emergency department patient visit KULDEEP BRADLEY MD [facility] Start: 09-21-2022 End: 09-21-2022 Emergency department patient visit AZALEA PAYNE DO [facility] Start: 08-14-2022 End: 08-15-2022 ambulatory GUADALUPE RUGGIERO MD Facility:[facility] Start: 11-05-2021 End: 11-05-2021 Emergency department patient visit EVERARDO MONTOYA MD [facility] Start: 08-30-2021 End: 08-30-2021 ambulatory Daniela O'Clemente PT [facility] Comment on above: Chronic bilateral lo w back pain, unspecified whether sciatica present (Primary Dx); Chronic midline low back pain without sciatica Start: 08-27-2021 End: 08-27-2021 ambulatory Humberto Henley PTA Work Phone: [facility] Comment on above: Chronic bilateral lo w back pain, unspecified whether sciatica present (Primary Dx) Wound Check Start: 08-27-2021 End: 08-27-2021 Emergency department patient visit [facility] Start: 08-24-2021 Telephone encounter Janessa Moreno DO Work Phone: Orthopaedics Comment on above: Patient Question Start: 08-23-2021 End: 08-23-2021 ambulatory Daniela O'Clemente PT Work Phone: [facility] Comment on above: Chronic midline low back pain without sciatica (Primary Dx) Start: 08-22-2021 End: 08-22-2021 Patient encounter procedure Renita Tiffanie DO Work Phone: Orthopaedics Comment on above: Synostosis (Primary Dx) Start: 08-14-2021 End: 08-14-2021 ambulatory Humberto Henley ASSOCIATE MERCHANDISER Work Phone: [facility] Comment on above: Chronic midline low back pain without sciatica (Primary Dx); Chronic bilateral low back pain, unspecified whether sciatica present Start: 08-08-2021 End: 08-08-2021 ambulatory Daniela O'Clemente PT Work Phone: [facility] Comment on above: Chronic midline low back pain without sciatica (Primary Dx) Start: 08-06-2021 End: 08-06-2021 ambulatory Humberto Henley ASSOCIATE MERCHANDISER Work Phone: [facility] Comment on above: Chronic midline low back pain without sciatica (Primary Dx); Chronic bilateral low back pain, unspecified whether sciatica present Start: 07-28-2021 End: 07-28-2021 Subsequent hospital visit by physician [facility] Comment on above: Disorder of bone [M8 9.9] Start: 07-27-2021 End: 07-27-2021 ambulatory Daniela O'Clemente PT Work Phone: [facility] Comment on above: Chronic midline low back pain without sciatica (Primary Dx); Chronic bilateral low back pain, unspecified whether sciatica present Start: 07-25-2021 End: 07-25-2021 Patient encounter procedure Mary Mcnulty MD Work Phone: Pain Management Comment on above: Spasm of lumbar para spinous muscle (Primary Dx); Chronic bilateral low back pain, unspecified whether sciatica present; Myofascial pain syndrome of lumbar spine Start: 07-24-2021 Telephone encounter Mary treviño MD Work Phone: [facility] Comment on above: Pre-Visit Notificati on Start: 07-13-2021 Telephone encounter Mary treviño MD Work Phone: [facility] Comment on above: LMTCB Start: 07-13-2021 End: 07-13-2021 Patient encounter procedure Janessa Moreno Work Phone: Orthopaedics Comment on above: Chronic bilateral lo w back pain, unspecified whether sciatica present (Primary Dx); Disorder of bone; Heterotopic ossification of bone Start: 07-13-2021 End: 07-13-2021 Subsequent hospital visit by physician [facility] Chioma Medina Work Phone: Radiology Comment on above: Pain [R52] Start: 04-27-2019 End: 04-27-2019 [facility] Start: 03-12-2019 End: 03-12-2019 Emergency department patient visit Florin Liu Work Phone: [facility] Comment on above: Abscess (Primary Dx) Start: 01-30-2019 End: 01-30-2019 Emergency department patient visit Louisa Shakeel Cristobal Work Phone: [facility] Comment on above: Pain of left forearm (Primary Dx) Start: 12-17-2018 End: 12-17-2018 Emergency department patient visit Louisa Beckford Susu Work Phone: [facility] Comment on above: Cellulitis of left u pper extremity (Primary Dx); Other acute osteomyelitis, unspecified site (HCC); Diabetes mellitus due to underlying condition with hyperosmolarity without coma, without long-term current use of insulin (HCC) Start: 12-16-2018 End: 12-16-2018 Emergency department patient visit Shashank Franco Work Phone: [facility] Comment on above: Cellulitis of left u pper extremity (Primary Dx) Procedures Date Procedure Procedure Detail Performing Clinician Start: 10-06-2024 Radex foot complete minimum 3 views Haley Sheth PA-C Work Phone: Start: 09-24-2024 PM Inj Spine L/S [facility] SN 1 JOSEPH VALENTINE MD Comment on above: auto-populated from documented surgical case Start: 06-02-2023 Cardiac catheterization JILLIAN KELLEY MD Comment on above: Procedures performed : Right heart catheterization. Left coronary angiography. Right coronary angiography. Left heart catheterization. SUMMARY: 1. Condition 1 - Cardiac index=1.59 L/(min m ). 2. Condition 1 - Orion RA pressure=21/19 (15) mm Hg. PA wedge pressure=25/23 (21) mm Hg. LV gailryjg=994/23, 28 mm Hg. dP/sq=3747 mm Hg/s. 3. Condition 1 - MPA saturation=46.6%. IMPRESSIONS: No significant obstructive CAD. RECOMMENDATIONS: Continue medical management. Start: 05-29-2023 Echocardiography JILLIAN KELLEY MD Start: 04-07-2023 Cardiac catheterization KULDEEP BRADLEY MD Start: 12-07-2021 Cardiac catheter (ph ysical object) GISSELL DAMIANER GROUP CHIEF OPERATOR[facility] Start: 07-28-2021 Ct upper extremity w /o contrast material Janessa Moreno DO Work Phone: Start: 07-13-2021 Radex elbow complete minimum 3 views Janessa Moreno DO Work Phone: Start: 04-27-2019 ECHOCARDIOGRAM, ADUL T SERVICE REQUEST VALERI SETTLEMIRES Start: 04-27-2019 Hepatic function panel VALERI SETTLEMIRES Start: 04-27-2019 Lipoprotein dir zachariah high density cholesterol VALERI SETTLEMIRES Start: 04-27-2019 Lipid 1996 panel - S vivi or Plasma Ricardo Smith MD Work Phone: Start: 04-02-2019 Adult depression scr eening assessment Janessa Moreno DO Work Phone: Start: 01-30-2019 Radex forearm 2 views W michelle Cristobal Work Phone: Start: 12-22-2018 Microscopic examinat ion of blood, culture Comment on above: Order Comment: Speci men Source Comment:Blood Performed By: #### C /BLT ####[facility] [employer] [id number] [place] [address] Performed By: #### C /BLD ####[facility] [employer] [id number] [place] [address] Start: 12-17-2018 Gluc bld gluc mntr d ev cleared fda spec home use Louisa Beckford Susu Work Phone: Start: 12-17-2018 Gluc bld gluc mntr d ev cleared fda spec home use Louisa Beckford Susu Work Phone: Start: 12-17-2018 Blood count complete auto&auto difrntl wbc Louisa Beckford Susu Work Phone: Start: 12-17-2018 C-reactive protein Will stacy E Susu Work Phone: Start: 12-17-2018 Comprehensive metabo lic panel Louisa Greerisinger Work Phone: Start: 12-17-2018 Sedimentation rate r bc automated Louisa Beckford Susu Work Phone: Start: 12-16-2018 Sedimentation rate r bc automated Louisa Beckford Susu Work Phone: Start: 12-16-2018 Basic metabolic pane l calcium total Shashank Adusumilli Work Phone: Start: 12-16-2018 Blood count complete auto&auto difrntl wbc Shashank Adusumilli Work Phone: Start: 12-16-2018 C-reactive protein Will stacy E Susu Work Phone: Start: 12-16-2018 Radex forearm 2 views V ijay Adusumilli Work Phone: Start: 04-07-2013 Cardiac catheter (ph ysical object) JULY JOHNSON GROUP CHIEF OPERATOR-J2EE CONSULTANT Biceps brachii muscl e and/or tendon structure (body structure) KULDEEP BRADLEY MD Comment on above: surgery on bilateral biceps Genus Meniscus (organism) AP CHEMO ORNELAS GROUP CHIEF OPERATOR-J2EE CONSULTANT Genus Meniscus (organism) ABE HAGEN MD Comment on above: right Rotator cuff arthrop athy of right shoulder KULDEEP BRADLEY MD Rupture of anterior cruciate ligament (disorder) GISSELL ORNELAS GROUP CHIEF OPERATOR-J2EE CONSULTANT Rupture of anterior cruciate ligament (disorder) KULDEEP BRADLEY MD Comment on above: Left Plan of Treatment Date Care Activity Detail Author Start: 2041 RSV Immunization for Adults (1 - 1-dose 75+ series) RSV Immunization for Adults (1 - 1-dose 75+ series) [facility] Start: 08-26-2028 DTaP/Tdap/Td Vaccine s (2 - Td or Tdap) DTaP/Tdap/Td Vaccines (2 - Td or Tdap) [facility] Start: 08-26-2028 Urine microalbumin profile DTaP,Tdap,Td Vaccine (2 - Td or Tdap) [facility] Start: 12-06-2024 Influenza vaccination S [facility] Start: 11-10-2024 End: 10-18-2025 XR Foot - left 3 Views XR foot 3+ views left Imaging Routine Left foot pain Expected: 11/10/2024, Expires: 10/18/2025 [facility] Work Phone: Comment on above: Expected: 11/10/2024 , Expires: 10/18/2025 Start: 11-10-2024 End: 11-10-2024 Patient encounter procedure 11/10/2024 10:45 AM EDT Office Visit [facility] [address] [place] [address] Ricardo Smith MD [address] [place] [address] [facility] Start: 10-13-2024 End: 10-13-2024 Patient encounter procedure 10/13/2024 1:30 PM EDT Office Visit [facility] [place] [address] [place] [id number] Ricardo Smith MD [address] [place], [place] [id number] [facility] [place] Start: 10-06-2024 End: 10-06-2024 Patient encounter procedure 10/06/2024 2:00 PM EDT Office Visit [facility] [place] [address] [place] [address] Haley Sheth PA-C [address] [place], [place] [phone] [facility] [place] Start: 09-29-2024 End: 09-24-2025 XR Foot - left 3 Views XR foot 3+ views left Imaging Routine Left foot pain Expected: 09/29/2024, Expires: 09/24/2025 [facility] Work Phone: Comment on above: Expected: 09/29/2024 , Expires: 09/24/2025 Start: 09-29-2024 End: 09-29-2024 Patient encounter procedure 09/29/2024 9:30 AM EDT Office Visit [facility] [place] [address] [place] [address] Ricardo Smith MD [address] [place], [place] [id number] [facility] [place] Start: 12-07-2023 Covid-19 Vaccine ( season) Covid-19 Vaccine ( season) [facility] Start: 12-07-2023 Covid-19 Vaccine ( season) Covid-19 Vaccine ( season) [facility] Start: 12-07-2023 Influenza vaccination Influenza Vacc ine (#1) [facility] Start: 06-29-2023 [facility] Start: 04-07-2023 Depression Assessment Depression Ass essment [facility] Start: 12-06-2022 Influenza vaccination Influenza Vacc ine (#1) [facility] Start: 04-07-2022 Depression Assessment Depression Ass essment [facility] Start: 12-06-2021 Influenza vaccination INFLUENZ A (Season Ended) [facility] Start: 2021 PROSTATE CANCER SCREENING DISCUSSION PROSTATE CANCER SCREENING DISCUSSION [facility] Start: 2021 Prostate specific antigen measurement Prostate Cancer Screening Discussion [facility] Start: 04-27-2020 Hepatitis B surface antibody level LDL CHOLESTEROL [facility] Start: 04-27-2020 Lipid panel Lipid Panel [facility] Start: 04-02-2020 Adult depression screening assessment DEPRESSION SCREENING [facility] Start: 10-28-2019 Hepatitis A Vaccines (2 of 2 - Risk 2-dose series) Hepatitis A Vaccines (2 of 2 - Risk 2-dose series) [facility] Start: 12-06-2018 Influenza vaccination Flu vaccine (# 1) [place], [place] Start: 2016 Pneumococcal Vaccine : 50+ Years (2 of 2 - PCV) Pneumococcal Vaccine: 50+ Years (2 of 2 - PCV) [facility] Start: 2016 SHINGRIX VACCINE (1 of 2) SHINGRIX VACCINE (1 of 2) [facility] Start: 2016 Zoster Vaccines (1 o f 2) Zoster Vaccines (1 of 2) [facility] Start: 07-02-2015 3 comp foot exam completed DIABETIC FOOT EXAM [facility] Start: 07-02-2015 Diabetic foot examination Diabetic Foot Exam [facility] Start: 05-27-2015 Hepatitis B surface antibody level LDL Cholesterol [facility] Start: 10-01-2014 Hemoglobin A1c measurement HbA1C [facility] Start: 10-01-2014 Hemoglobin A1c/Hemoglobin.total in Blood HBA1C [facility] Start: 06-21-2011 COLOGUARD (FIT-DNA) COLOGUARD (FIT-D NA) [facility] Start: 06-21-2011 Colonoscopy COLONOSCOPY [facility] Start: 06-21-2011 COLORECTAL CANCER SCREENING COLORECTAL CANCER SCREENING [facility] Start: 06-21-[address] COLONOGRAPHY [facility] Start: 06-21-2011 FECAL OCCULT BLOOD FECAL OCCULT BLOO D [facility] Start: 06-21-2011 Screening for malign ant neoplasm of colon [facility] Start: 06-21-2011 SIGMOIDOSCOPY SIGMOIDOSCOPY [facility] Start: 04-07-2011 Pneumococcal vaccination [facility] Start: 04-07-2011 Pneumococcal Vaccine : 50+ (2 of 2 - PCV) Pneumococcal Vaccine: 50+ (2 of 2 - PCV) [facility] Start: 04-07-2011 Pneumococcal Vaccine : 50+ Years (2 of 2 - PCV) Pneumococcal Vaccine: 50+ Years (2 of 2 - PCV) [facility] Start: 1985 HEPATITIS B (1 of 3 - Risk 3-dose series) HEPATITIS B (1 of 3 - Risk 3-dose series) [facility] Start: 1985 Hepatitis B Vaccine (1 of 3 - 19+ 3-dose series) Hepatitis B Vaccine (1 of 3 - 19+ 3-dose series) [facility] Start: 1985 Hepatitis B Vaccines (1 of 3 - 19+ 3-dose series) Hepatitis B Vaccines (1 of 3 - 19+ 3-dose series) [facility] Start: 1985 Urine microalbumin profile DTAP,TDAP,TD (1 - Tdap) [facility] Start: 1984 ANNUAL PCP TEAM TREE WORKER GHULAM DISEASE VISIT ANNUAL PCP TEAM CHRONIC DISEASE VISIT [facility] Start: 1984 Anxiety Screening Anxiety Screening [facility] Start: 1984 BP CONTROLLED (<130/80) BP CONTROLLE D (<130/80) [facility] Start: 1984 Depression Screening Depression Scre ening [facility] Start: 1984 Diabetes: Estimated Glomerular Filtration Rate for [facility] Diabetes: Estimated Glomerular Filtration Rate for [facility] Start: 1984 Diabetes: Urine Albumin-Creatinine Ratio for [facility] Diabetes: Urine Albumin-Creatinine Ratio for [facility] Start: 1984 Hepatitis C screening Hepatitis C Sc sade [facility] Start: 1984 HIV SCREENING HIV SCREENING [facility] Start: 1984 HIV screening HIV Screening [facility] Start: 1982 ONE PNEUMOVAX PRIOR TO AGE 65 ONE PNEUMOVAX PRIOR TO AGE 65 [facility] Start: 1978 Depression Screening Depression Scre ening [facility] Start: 1976 Diabetic foot examination Diabetes: Foot Exam [facility] Start: 1976 Glaucoma screening [facility] Start: 1976 Hepatitis B screening URINE ALBUMIN:CREATININE RATIO [facility] Start: 1976 Hepatitis C antibody , confirmatory test DILATED RETINAL EXAM [facility] Start: 1976 Preventive dental service Diabetes: Dental Exam [facility] Start: 1972 PNEUMOCOCCAL (1 - PCV) PNEUMOCOCCAL (1 - PCV) [facility] Start: 06-21-1971 COVID-19 VACCINE (#1) COVID-19 VACCI NE (#1) [facility] Start: 06-21-1971 COVID-19 VACCINE (1) COVID-19 VACCIN E (1) [facility] Start: 06-21-1967 MMR Vaccines (1 of 1 - Standard series) MMR Vaccines (1 of 1 - Standard series) [facility] Start: 1966 Covid-19 Vaccine (#1) Covid-19 Vacci ne (#1) [facility] Start: 1966 Hemoglobin A1c measurement Diabetes: Hemoglobin A1C [facility] Start: 1966 Hepatitis B Vaccine (1 of 3 - 3-dose series) Hepatitis B Vaccine (1 of 3 - 3-dose series) [facility] Start: 1966 HIV screening HIV Screening [facility] Start: 1966 Lipid panel Lipid Panel [facility] Start: 1966 Screening for malign ant neoplasm of colon [facility] End: 08-12-2022 Ct upper extremity w/o contrast material CT ELBOW WO IVCON LT Radiology Routine Disorder of bone 1 Occurrences starting 07/13/2021 until 08/12/2022 [facility] Work Phone: Comment on above: 1 Occurrences starti ng 07/13/2021 until 08/12/2022 Ct upper extremity w /o contrast material CT ELBOW WO IVCON LT Radiology Routine Disorder of bone 07/28/2021 8:16 AM EDT [facility] Work Phone: End: 12-16-2018 Culture Blood #1 Culture Blood #1 Microbiology STAT One Time for 1 Occurrences starting 12/16/2018 until 12/16/2018 [place], [place] Comment on above: One Time for 1 Occur rences starting 12/16/2018 until 12/16/2018 Culture Blood #1 Culture Blood # 1 Microbiology STAT 12/16/2018 7:55 PM EDT [place] End: 12-16-2018 Culture Blood #2 Culture Blood #2 Microbiology STAT One Time for 1 Occurrences starting 12/16/2018 until 12/16/2018 [place] Comment on above: One Time for 1 Occur rences starting 12/16/2018 until 12/16/2018 Culture Blood #2 Culture Blood # 2 Microbiology STAT 12/16/2018 7:50 PM EDT [place], [place] Patient Education [facility] Work Phone: Patient referral [facility] Work Phone: PT PLAN OF CARE CERTIFICATION PT PLAN OF CARE CERTIFICATION Procedures Routine Chronic midline low back pain without sciatica Chronic bilateral low back pain, unspecified whether sciatica present Ordered: 07/27/2021 [facility] Work Phone: Comment on above: Ordered: 07/27/2021 [facility] Immunizations Immunization Date Immunization Notes Care Provider Mounika thompson 05-31-2023 influenza, injectabl e, quadrivalent, preservative free AZLAEA THORPELyle SHEPPARD [facility] 05-31-2023 influenza virus vacc ine, unspecified formulation Haley Sheth PA-C Work Phone: [facility] 02-06-2020 Influenza virus vaccine [facility] 04-29-2019 hepatitis A vaccine, adult dosage GISSELL JOHNSON GROUP CHIEF OPERATOR-J[employer]EE CONSULTANT [facility] 04-29-2019 hepatitis A and hepatitis B vaccine Ricardo Smith MD Work Phone: [facility] 01-19-2019 influenza virus vacc ine, unspecified formulation Blanka Genao RN [facility] 08-26-2018 tetanus toxoid, redu nubia diphtheria toxoid, and acellular pertussis vaccine, adsorbed Shashank Adusumilli [facility] Comment on above: Result Comment: 2023: VIS DATE: 05/31/2014 04-07-2010 influenza virus vacc ine, unspecified formulation [facility] GROUP CHIEF OPERATOR-J2EE CONSULTANT [facility] 04-07-2010 pneumococcal polysaccharide vaccine, [address] [facility] GROUP CHIEF OPERATOR-J2EE CONSULTANT [facility] Payers Date Payer Category Payer Medicaid O [employer] ODM [id number] 2023 Unknown [id number] 2023 Self-pay [id number] 2022 Medicaid [id number] 2021 Unknown [id number] 2019 Medicaid [id number] 2016 Medicaid [employer] [id number] 2016-Present [phone] [address] [place] [address] Medicaid [id number] 2008 Unknown 1966 Unknown [id number] 2..840.1.078935.3.579.2.732 1966 Unknown [id number] .840.1.441511.3.579.2.159 1966 Unknown [id number] .840.1.530120.3.579.2159 1966 Unknown [id number] .840.1.637830.3.579.2 1966 Unknown [id number] 840.1.286399.3.579.2 1966 Unknown [id number] .840.1.968836.3.579.2 1966 Unknown [id number] 840.1.471677.3.579. 1966 Unknown [id number] 840.1.691814.3.579.2 1966 Unknown [id number] .1.288369.3.579. 1966 Unknown [id number] 840.1.235866.3.579.2 1966 Unknown [id number] 840.1.271765.3.579.2 1966 Unknown [id number] 840.1.807273.3.579.2 1966 Unknown [id number] 840.1.454447.3.579.2 1966 Unknown [id number] 840.1.775921.3.579.2 1966 Unknown [id number] 840.1.904765.3.579.2 1966 Unknown [id number] 840.1.126200.3.579.2 1966 Unknown [id number] 840.1.415577.3.579.2 1966 Unknown [id number] 05.23.840.1.349173.3.579.2 1966 Unknown [id number] .840.1.614521.3.579.2 1966 Unknown [id number] .16840.1.495973.3.579.2 1966 Unknown [id number] 840.1.025546.3.579.2 1966 Unknown [id number] .840.1.202023.3.579. 1966 Unknown [id number] 840.1.256463.3.579. 1966 Unknown [id number] 840.1.069257.3.579. 1966 Unknown [id number] 840.1.548763.3.579. 1966 Unknown [id number] 840.1.697748.3.579. 1966 Unknown [id number] 840.1.332404.3.579. 1966 Unknown [id number] 840.1.900311.3.579.2 1966 Unknown [id number] 840.1.232193.3.579.2 1966 Unknown [id number] 840.1.217789.3.579.2 1966 Unknown [id number] 840.1.839626.3.579.2 1966 Unknown [id number] 840.1.530074.3.579.2 1966 Unknown [id number] 840.1.174414.3.579.21967 Unknown [id number] 2.16.840.1.092947.3.579.2.627 1966 Unknown [id number] 2.16.840.1.402533.3.579.2.627 1966 Unknown [id number] 2.16.840.1.164232.3.579.2.627 Unknown [id number] 2.16.840.1.871885.3.579.2.462 Unknown [id number] 2.16.840.1.795496.3.579.2.462 Unknown [id number] 2.16.840.1.966320.3.579.2.462 Unknown [id number] 2.16.840.1.135350.3.579.2.462 Unknown [id number] 2.16.840.1.833022.3.579.2.462 Unknown [id number] 2.16.840.1.854732.3.579.2.462 Social History Date Type Detail Facility Start: 05-13-2017 End: 09-16-2018 Tobacco smoking status NHIS Former smoker [facility] History of tobacco use Chews [place] Start: 09-16-2018 End: 10-13-2024 Alcohol intake Yes [facility] Start: 09-16-[address] [facility] [place] Start: 1965 Sex Assigned At Not on file [place] Start: 01-30-2019 End: 10-13-2024 Alcohol intake Current drinker of alcohol (finding) [place] Start: 12-29-2018 Alcohol Comment daily [facility] [place] Start: 07-17-1987 End: 07-16-1989 History of tobacco use Current smoker [facility] Start: 07-17-1987 End: 07-16-1989 History of tobacco use Cigarette Smoker [facility] Start: 06-11-2011 End: 10-13-2024 Cigarettes smoked current (pack per day) - Reported 0.5 [facility] Start: 06-11-2011 End: 05-13-2017 Tobacco use and exposure User of smokeless tobacco [facility] Start: 04-02-2019 History SDOH Alcohol Comment daily, beer [facility] Start: 07-03-2021 End: 08-01-2021 Exposure to SARS-CoV-2 (event) Not sure [facility] Start: 08-27-2021 End: 06-29-2023 Tobacco smoking status NHIS Unknown if ever smoked [facility] Start: 05-14-2020 None [facility] Start: 07-24-2020 Alone [facility] Start: 07-24-2020 Chew [facility] Start: 1965 Sex Assigned At Male A [facility] Tobacco Nicotine Use: I chew. Type: Oral (Snuff, Chew). [facility] Tobacco smoking status [facility] Start: 06-10-2019 End: 11-05-2021 Sex Male (finding) [facility] Medical Equipment Procedure Code Equipment Code Equipment Origin al Text Equipment Identifier Dates Start: 07-07-2011 See Instructions , Testing blood glucose TID. 1 bottle of 100 strips, # 1 EA, 0 Refill(s), [facility]acy: [id number], 182.9, cm, 05/29/23 23:40:00 EST, Height, 127.8, kg, 05/29/23 23:40:00 EST, Dosing Weight Start: 06-02-2023 See Instructions , Testing blood glucose TID.1 box, # 1 EA, 0 Refill(s), Pharmacy: [id number], 182.9, cm, 05/29/23 23:40:00 EST, Height, 127.8, kg, 05/29/23 23:40:00 EST, Dosing Weight Start: 06-02-2023 See Instructions , Testing blood glucose TID. 1 bottle of 100 strips, # 1 EA, 0 Refill(s), Pharmacy: [id number], 182.9, cm, 05/29/23 23:40:00 EST, Height, 127.8, kg, 05/29/23 23:40:00 EST, Dosing Weight Start: 06-02-2023 See Instructions , Testing blood glucose TID.1 box, # 1 EA, 0 Refill(s), Pharmacy: [facility]acy #[id number], 182.9, cm, 05/29/23 23:40:00 EST, Height, 127.8, kg, 05/29/23 23:40:00 EST, Dosing Weight Start: 06-02-2023 See Instructions , Testing blood glucose TID. 1 bottle of 100 strips, # 1 EA, 0 Refill(s), Pharmacy: [facility]/pharmacy #[id number], 182.9, cm, 05/29/23 23:40:00 EST, Height, 127.8, kg, 05/29/23 23:40:00 EST, Dosing Weight Start: 06-02-2023 See Instructions , Testing blood glucose TID.1 box, # 1 EA, 0 Refill(s), [id number], 182.9, cm, 05/29/23 23:40:00 EST, Height, 127.8, kg, 05/29/23 23:40:00 EST, Dosing Weight Start: 06-02-2023 See Instructions , Testing blood glucose TID. 1 bottle of 100 strips, # 1 EA, 0 Refill(s), Pharmacy: [facility]/pharmacy #[id number], 182.9, cm, 05/29/23 23:40:00 EST, Height, 127.8, kg, 05/29/23 23:40:00 EST, Dosing Weight Start: 06-02-2023 See Instructions , Testing blood glucose TID.1 box, # 1 EA, 0 Refill(s), Pharmacy: [facility]/pharmacy #[id number], 182.9, cm, 05/29/23 23:40:00 EST, Height, 127.8, kg, 05/29/23 23:40:00 EST, Dosing Weight Start: 06-02-2023 See Instructions , Testing blood glucose TID. 1 bottle of 100 strips, # 1 EA, 0 Refill(s), Pharmacy: [facility]/pharmacy #[id number], 182.9, cm, 05/29/23 23:40:00 EST, Height, 127.8, kg, 05/29/23 23:40:00 EST, Dosing Weight Start: 06-02-2023 See Instructions , Testing blood glucose TID.1 box, # 1 EA, 0 Refill(s), [id number], 182.9, cm, 05/29/23 23:40:00 EST, Height, 127.8, kg, 05/29/23 23:40:00 EST, Dosing Weight Start: 06-02-2023 See Instructions , Testing blood glucose TID. 1 bottle of 100 strips, # 1 EA, 0 Refill(s), [id number], 182.9, cm, 05/29/23 23:40:00 EST, Height, 127.8, kg, 05/29/23 23:40:00 EST, Dosing Weight Start: 06-02-2023 See Instructions , Testing blood glucose TID.1 box, # 1 EA, 0 Refill(s), [id number], 182.9, cm, 05/29/23 23:40:00 EST, Height, 127.8, kg, 05/29/23 23:40:00 EST, Dosing Weight Start: 06-02-2023 See Instructions , Testing blood glucose TID. 1 bottle of 100 strips, # 1 EA, 0 Refill(s), [id number], 182.9, cm, 05/29/23 23:40:00 EST, Height, 127.8, kg, 05/29/23 23:40:00 EST, Dosing Weight Start: 06-02-2023 See Instructions , Testing blood glucose TID.1 box, # 1 EA, 0 Refill(s), [id number], 182.9, cm, 05/29/23 23:40:00 EST, Height, 127.8, kg, 05/29/23 23:40:00 EST, Dosing Weight Start: 06-02-2023 See Instructions , Testing blood glucose TID. 1 bottle of 100 strips, # 1 EA, 0 Refill(s), Pharmacy: [facility] #[id number], 182.9, cm, 05/29/23 23:40:00 EST, Height, 127.8, kg, 05/29/23 23:40:00 EST, Dosing Weight Start: 06-02-2023 See Instructions , Testing blood glucose TID.1 box, # 1 EA, 0 Refill(s), [id number], 182.9, cm, 05/29/23 23:40:00 EST, Height, 127.8, kg, 05/29/23 23:40:00 EST, Dosing Weight Start: 06-02-2023 See Instructions , Testing blood glucose TID. 1 bottle of 100 strips, # 1 EA, 11 Refill(s), [id number], 183, cm, 09/22/23 14:10:00 EDT, Height, 107.1, kg, 09/22/23 14:10:00 EDT, Dosing Weight Start: 09-22-2023 See Instructions , Testing blood glucose TID.1 box, # 1 EA, 11 Refill(s), [id number], 183, cm, 09/22/23 14:10:00 EDT, Height, 107.1, kg, 09/22/23 14:10:00 EDT, Dosing Weight Start: 09-22-2023 See Instructions , Testing blood glucose TID. 1 bottle of 100 strips, # 1 EA, 11 Refill(s), Pharmacy: [facility]/pharmacy #[id number], 183, cm, 09/22/23 14:10:00 EDT, Height, 107.1, kg, 09/22/23 14:10:00 EDT, Dosing Weight Start: 09-22-2023 See Instructions , Testing blood glucose TID.1 box, # 1 EA, 11 Refill(s), [id number], 183, cm, 09/22/23 14:10:00 EDT, Height, 107.1, kg, 09/22/23 14:10:00 EDT, Dosing Weight Start: 09-22-2023 See Instructions , Testing blood glucose TID. 1 bottle of 100 strips, # 1 EA, 11 Refill(s), Pharmacy: [facility]/pharmacy #4605, 183, cm, 09/22/23 14:10:00 EDT, Height, 107.1, kg, 09/22/23 14:10:00 EDT, Dosing Weight Start: 09-22-2023 See Instructions , Testing blood glucose TID.1 box, # 1 EA, 11 Refill(s), [id number], 183, cm, 09/22/23 14:10:00 EDT, Height, 107.1, kg, 09/22/23 14:10:00 EDT, Dosing Weight Start: 09-22-2023 See Instructions , Testing blood glucose TID. 1 bottle of 100 strips, # 1 EA, 11 Refill(s), [id number], 183, cm, 09/22/23 14:10:00 EDT, Height, 107.1, kg, 09/22/23 14:10:00 EDT, Dosing Weight Start: 09-22-2023 See Instructions , Testing blood glucose TID.1 box, # 1 EA, 11 Refill(s), [facility], 183, cm, 09/22/23 14:10:00 EDT, Height, 107.1, kg, 09/22/23 14:10:00 EDT, Dosing Weight Start: 09-22-2023 See Instructions , Testing blood glucose TID. 1 bottle of 100 strips, # 1 EA, 11 Refill(s), [id number], 183, cm, 09/22/23 14:10:00 EDT, Height, 107.1, kg, 09/22/23 14:10:00 EDT, Dosing Weight Start: 09-22-2023 See Instructions , Testing blood glucose TID.1 box, # 1 EA, 11 Refill(s), [facility], 183, cm, 09/22/23 14:10:00 EDT, Height, 107.1, kg, 09/22/23 14:10:00 EDT, Dosing Weight Start: 09-22-2023 See Instructions , Testing blood glucose TID. 1 bottle of 100 strips, # 1 EA, 11 Refill(s), [facility], 183, cm, 09/22/23 14:10:00 EDT, Height, 107.1, kg, 09/22/23 14:10:00 EDT, Dosing Weight Start: 09-22-2023 See Instructions , Testing blood glucose TID.1 box, # 1 EA, 11 Refill(s), Pharmacy: [facility] #4605, 183, cm, 09/22/23 14:10:00 EDT, Height, 107.1, kg, 09/22/23 14:10:00 EDT, Dosing Weight Start: 09-22-2023 See Instructions , Testing blood glucose TID. 1 bottle of 100 strips, # 1 EA, 11 Refill(s), Pharmacy: [facility] #4605, 183, cm, 09/22/23 14:10:00 EDT, Height, 107.1, kg, 09/22/23 14:10:00 EDT, Dosing Weight Start: 09-22-2023 See Instructions , Testing blood glucose TID.1 box, # 1 EA, 11 Refill(s), [id number], 183, cm, 09/22/23 14:10:00 EDT, Height, 107.1, kg, 09/22/23 14:10:00 EDT, Dosing Weight Start: 09-22-2023 See Instructions , Testing blood glucose TID. 1 bottle of 100 strips, # 1 EA, 11 Refill(s), [id number], 183, cm, 09/22/23 14:10:00 EDT, Height, 107.1, kg, 09/22/23 14:10:00 EDT, Dosing Weight Start: 09-22-2023 See Instructions , Testing blood glucose TID.1 box, # 1 EA, 11 Refill(s), [id number], 183, cm, 09/22/23 14:10:00 EDT, Height, 107.1, kg, 09/22/23 14:10:00 EDT, Dosing Weight Start: 09-22-2023 See Instructions , Testing blood glucose TID. 1 bottle of 100 strips, # 1 EA, 11 Refill(s), Pharmacy: [facility] #4605, 183, cm, 09/22/23 14:10:00 EDT, Height, 107.1, kg, 09/22/23 14:10:00 EDT, Dosing Weight Start: 09-22-2023 See Instructions , Testing blood glucose TID.1 box, # 1 EA, 11 Refill(s), Pharmacy: [id number], 183, cm, 09/22/23 14:10:00 EDT, Height, 107.1, kg, 09/22/23 14:10:00 EDT, Dosing Weight Start: 09-22-2023 See Instructions , Testing blood glucose TID. 1 bottle of 100 strips, # 1 EA, 11 Refill(s), Pharmacy: [facility]/pharm[facility] #[id number], 183, cm, 09/22/23 14:10:00 EDT, Height, 107.1, kg, 09/22/23 14:10:00 EDT, Dosing Weight Start: 09-22-2023 See Instructions , Testing blood glucose TID.1 box, # 1 EA, 11 Refill(s), Pharmacy: [facility] #4605, 183, cm, 09/22/23 14:10:00 EDT, Height, 107.1, kg, 09/22/23 14:10:00 EDT, Dosing Weight Start: 09-22-2023 See Instructions , Testing blood glucose TID. 1 bottle of 100 strips, # 1 EA, 11 Refill(s), [id number], 183, cm, 09/22/23 14:10:00 EDT, Height, 107.1, kg, 09/22/23 14:10:00 EDT, Dosing Weight Start: 09-22-2023 See Instructions , Testing blood glucose TID.1 box, # 1 EA, 11 Refill(s), Pharmacy: [facility] #4605, 183, cm, 09/22/23 14:10:00 EDT, Height, 107.1, kg, 09/22/23 14:10:00 EDT, Dosing Weight Start: 09-22-2023 See Instructions , Testing blood glucose TID. 1 bottle of 100 strips, # 1 EA, 11 Refill(s), Pharmacy: [facility] #4[facility], 183, cm, 09/22/23 14:10:00 EDT, Height, 107.1, kg, 09/22/23 14:10:00 EDT, Dosing Weight Start: 09-22-2023 See Instructions , Testing blood glucose TID.1 box, # 1 EA, 11 Refill(s), [id number], 183, cm, 09/22/23 14:10:00 EDT, Height, 107.1, kg, 09/22/23 14:10:00 EDT, Dosing Weight Start: 09-22-2023 Functional Status Date Assessment Result Facility 10-28-2023 [facility] Functional Status Independent [place] [facility] 10-27-2023 Functional Status ID band on, Allergy Band on, Call device within reach, Bed in low position, Wheels locked, Upper/Half-Length side-rails up, Safety level maintained [facility] 08-23-2023 Functional Status Independent [place] [facility] 08-23-2023 Functional Status Ambulation in [place], Ambulation in Room [facility] 08-01-2023 Functional Status bilateral knee high removed/off [facility] 08-01-2023 Functional Status Linen Change Done [facility] 08-01-2023 Functional Status Identified as high risk, Fall ID band on, Door open, Non-Slip footwear, Room check performed [facility] 08-01-2023 Functional Status [place] [facility] 08-01-2023 Functional Status Done [place] [facility] 07-31-2023 Functional Status [place] [facility] 07-31-2023 Functional Status [place] [facility] 07-31-2023 Functional Status [place] [facility] 07-31-2023 Functional Status Mobile home [place] [facility] 07-31-2023 Functional Status [place] [facility] 07-31-2023 Functional Status [place] [facility] 07-30-2023 Functional Status [place] [facility] 07-30-2023 Functional Status [place] [facility] 07-30-2023 Functional Status None [place] [facility] 07-20-2023 Functional Status Independent [place] [facility] 07-07-2023 Functional Status Identified as high risk, Fall ID band on, Room located near nursing station [facility] 06-28-2023 Functional Status ID band on, Call device within reach, Bed in low position, Wheels locked [facility] 06-06-2023 Functional Status Independent [place] [facility] 06-06-2023 Functional Status Standard Safet y ID band on, Allergy Band on, Call device within reach, Bed in low position, Wheels locked, Upper/Half-Length side-rails up, Safety level maintained [facility] 05-29-2023 Functional Status Room check performed [facility] 05-29-2023 Functional Status [place] [facility] 05-29-2023 Functional Status [place] [facility] 05-29-2023 [facility] Functional Status Caregiver for child/parent/spouse, Driving, 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, Home management, Laundry, Meal preparation, Personal ADL, Shopping [facility] 05-29-2023 [facility] 05-29[facility]23 Functional Status Nurse Safety C andrez q2hrs Performed 7pm-7am [facility] 05-29-2023 Functional Status Repositions self [facility] 05-28-2023 Functional Status Assistive Device None A [facility] 04-25-2023 Functional Status Independent [facility] 04-25-2023 Functional Status Awake, Resting [facility] 01-02-2023 Functional Status Independent [facility] 09-21-2022 Functional Status Standard Safet y ID band on, Allergy Band on, Call device within reach, Bed in low position, Wheels locked, Upper/Half-Length side-rails up, Phone within reach, personal items within reach, Assistive devices within reach, Bedside Cart Locked, Safety level maintained, Non-Slip footwear, Precautions maintained [facility] 11-05-2021 Functional Status ID band on, Allergy Band on, Call device within reach, Bed in low position, Wheels locked, Upper/Half-Length side-rails up, Phone within reach, Bedside Cart Locked, Visitor at bedside [facility] Mental Status Date Assessment Result Facility 10-28-2023 Mental Status Orientation Oriented x 4 [facility] 10-27-2023 Mental Status Orientation Oriented x 4 [facility] 10-27-2023 Mental Status [facility] 08-23-2023 Mental Status Orientation Oriented x 4 [facility] 08-23-2023 Mental Status [facility] 08-01-2023 Mental Status Oriented x 4 [facility] 07-31-2023 Mental Status [facility] 07-30-2023 Mental Status [facility] 07-30-2023 Mental Status [facility] 07-20-2023 Mental Status Orientation Oriented x 4 [facility] 07-20-2023 Mental Status [facility] 07-20-2023 Mental Status Orientation Oriented x 4 [facility] 07-07-2023 Mental Status Oriented x 4 [facility] 06-28-2023 Mental Status Oriented x 4 [facility] 06-06-2023 Mental Status Oriented x 4 [facility] 06-06-2023 Mental Status [facility] 05-29-2023 Mental Status Oriented x 4 [facility] 05-29-2023 Mental Status [facility] 05-29-2023 Mental Status [facility] 04-25-2023 Mental Status Orientation Oriented x 4 [facility] 04-25-2023 Mental Status [facility] 01-02-2023 Mental Status Orientation Oriented x 4 [facility] 09-21-2022 Mental Status Orientation Oriented x 4 [facility] 11-05-2021 Mental Status Oriented x 4 [facility] Clinical Notes 10-03-2011 to 10-13-2024 Ricardo Smith MD - 10/13/2024 1:30 PM Hitesh Sheth PA-C - 10/06/2024 2:00 PM EDTTelephone Encounter - Cyndee Chavez MA - 10/01/2024 2:46 PM EDTRicardo Smith MD - 09/29/2024 9:30 AM EDT Note Date & Type Note Facility 10-13-2024 History of Presen t illness Narrative Images from the original note were not included. [facility] - [address] [place] [id number] Dept: [phone] Dept Yusef Muir 1965 [id number] 10/13/2024 HISTORY OF PRESENT ILLNESS: Yusef returns for re-evaluation of his left foot fracture. Yusef reports that his pain has been minimal Yusef reports that his swelling has decreased since the last visit Yusef denies calf pain and shortness of breath Yusef has been nonweight bearing on the left lower extremity in a cast. He does admit to walking in his cast. He states the cast when he walks rubbed on the front of his leg and he now has an area with a wound and some surrounding redness. He denies any fevers or chills. In general Yusef feels that he is doing about the same as he was doing at the last visit Other complaints or issues: None Review of Systems Surgical Risk Factors: Allergies to Metals or Latex: NO Have you been treated for a blood clot: NO Have you had a history of bleeding disorder: NO Have you had a history of Anesthetic problems: NO Do you have tendency to bruise easily: NO Do you experience prolonged or excessive bleeding from cuts or after surgery: NO General/Constitutional: General: no Cancer: NO Acute/Chronic Infections: NO HEENT/Neck: Problems with theThroat: NO Problems with the Eyes: NO Problems with the Ears: NO Problems with the Nose and Sinuses: NO Endocrine: Problems with Diabetes: NO Problems with Thyroid Disorder: NO Thorax: Problems with the Heart: NO Problems with the Lung: no Cardiovascular: Problems with Circulation: NO Problems with High Blood pressure: NO Gastrointestinal: Problems with Ulcers: NO Problems with the Liver: no Problems with Bowel Habits: NO Genitourinary: Problems with the Genitals: NO Urinary problems: NO Kidney disease or stones: NO Skin: Any general problems: NO Neurologic: Dizziness, blurred vision, headaches, problems with balance : NO Seizures or Stroke: NO Psychiatric: Emotional or Psychological disorders: NO Depression or Anxiety: no PAST MEDICAL HISTORY: Medical History[1] Allergies[2] PHYSICAL EXAM: Ht 1.829 m (6') Wt 122 kg (270 lb) BMI 36.62 kg/m This is an age appropriate appearing male who is alert and oriented x 3. The patient appears well nourished. The patient is able to verbalize normally and seems to have a good understanding of his situation. Normocephalic and atraumatic. Respiratory: No shortness of breath Left lower extremity examination Lymphatic System: Moderate swelling of the hindfoot, midfoot, and forefoot. The skin wrinkles with digital pressure and dorsiflexion of the ankle Vascular: Dorsalis pedis pulse: 2+ Posterior tibial pulse: 2+ Capillary refill is less than 3 seconds Skin temperature feels warmer in the foot/ankle than in the proximal leg Skin/nails: There is an eschar located over the anterior aspect of the proximal leg just distal to the tibial tubercle. No active drainage is seen. Surrounding erythema is noted. The surrounding soft tissues have no areas of fluctuance with palpation. Ulcers: No ulcer(s) or skin breakdown present Neurologic: Sensation absent/decreased to light touch throughout the foot and the ankle. Deformity: Pes planus Gait and Station: Gait and station not assessed RADIOGRAPHIC INTERPRETATION: No xrays were obtained or reviewed REVIEW OF RELATED PREVIOUS DOCUMENTATION: No documents related to the current problem(s) were reviewed or no documents were available for review. LABORATORY RESULT INTERPRETATION: No labs were reviewed/No labs available for review DIAGNOSIS: Diagnosis Plan 1. Left leg cellulitis 2. Charcot joint of left foot General supply request: [place] boot - left sulfamethoxazole-trimethoprim (Bactrim DS) 800-160 MG tablet 3. Type 2 diabetes mellitus with diabetic neuropathy, unspecified whether residential insulin use (HCC) General supply request: jahaira chirinosot - left sulfamethoxazole-trimethoprim (Bactrim DS) 800-160 MG tablet MEDICAL DECISION MAKING: I had a discussion with Yusef to make sure he has a good understanding of the diagnoses/issues that I think are present today and understands the plan moving forward. I explained to Yusef that he now has cellulitis of the leg and I recommended a course of oral antibiotics. He understands the importance of taking the antibiotics until the prescription is completed and if it is not improving the erythema surrounding the wound site he needs to call the office immediately. If the erythema is increasing or he starts to have purulent drainage from the wound site he needs to call the office immediately or go to the emergency department. I made it quite clear that the wound and infection are serious and could become limb threatening if he does not take his antibiotic or closely follows the condition of the wound/cellulitic area. He verbalized his understanding. - sulfamethoxazole-trimethoprim (Bactrim DS) 800-160 MG tablet; Take 1 tablet by mouth 2 times daily for 10 days. Dispense: 20 tablet; Refill: 0 I explained that I want Yusef to take the above antibiotic until the prescription is complete. I discussed the risks of the antibiotic as well. Yusef was given a prescription for a [place] (charcot restraint orthotic walker) boot for the left lower extremity. I explained to Yusef that the [place] boot is custom made and will only fit his limb. Once he has the [place] boot he will still need to be non-weight bearing on the affected limb and he understands the [place] boot is intended to decrease the swelling he is having and to protect the limb if he happens to stand or walk on it unintentionally. I explained that the [place] boot is intended to protect the foot/ankle and to help decrease swelling in the foot/ankle. If the [place] boot becomes too loose or too tight I instructed Yusef to call the kiln tender for an adjustment. If the boot begins to cause any skin irritation or breakdown I instructed Yusef to discontinue the boot, stay off the limb and call my office immediately for instructions. Patient's anatomy is not amenable with OTS/prefab devices and requires a custom device., The condition the orthosis is being used for is expected to be permanent or long standing and requires a custom device., Control of the foot and ankle in more than one plane requires the patient to have a custom device., and The patient has a compromised condition that requires a custom device to protect the integrity of the patient's skin. He was placed in a well-padded short leg cast and instructed to be nonweightbearing on the left lower extremity. He understands the risks of weightbearing in the cast which were discussed including but not limited to continued breakdown of the midfoot, ulceration skin, infection amputation. The cast is intended to be used until he is fitted with the [place] boot. I will see him back in 1 month for reevaluation and weightbearing x-rays of the left foot. Xray needed at next visit: Left foot 3 weight bearing views Follow up in about 4 weeks (around 11/10/2024) for Pre-visit Imaging. Electronically signed by Ricardo Smith MD [facility] Department of Orthopedic surgery 10/13/2024 5:29 PM Voice recognition was used for portions of this note and although it was reviewed prior to signing some incorrect words or phrases could be present. [1] Past Medical History: Diagnosis Date Chronic back pain COPD (chronic obstructive pulmonary disease) (HCC) Diabetes mellitus (HCC) Hyperlipidemia Hypertension Neuropathy Restless leg syndrome Scoliosis Sleep apnea [2] Allergies Allergen Reactions Asa [Aspirin] documented in this encounter [facility] 10-06-2024 History of Presen t illness Narrative Images from the original note were not included. [facility] [address] [place] [address] [place] [id number] Dept: [phone] Dept Yusef Muir 1965 [id number] 10/06/2024 HISTORY OF PRESENT ILLNESS: Yusef returns for cast change for Left foot. Yusef reports that his pain minimal and was stretching last night and felt a pop which increased his pain. Yusef reports that his swelling has been minimal Yusef denies calf pain and shortness of breath Yusef was instructed to be nonweight bearing on the left lower extremity in a cast. He admits to putting full weight on it to use the steps and walk his dog In general Yusef feels that he is doing better than the his last visit Other complaints or issues: None Review of Systems Surgical Risk Factors: Allergies to Metals or Latex: NO Have you been treated for a blood clot: NO Have you had a history of bleeding disorder: NO Have you had a history of Anesthetic problems: NO Do you have tendency to bruise easily: NO Do you experience prolonged or excessive bleeding from cuts or after surgery: NO General/Constitutional: General: no Cancer: NO Acute/Chronic Infections: NO HEENT/Neck: Problems with theThroat: NO Problems with the Eyes: NO Problems with the Ears: NO Problems with the Nose and Sinuses: NO Endocrine: Problems with Diabetes: NO Problems with Thyroid Disorder: NO Thorax: Problems with the Heart: NO Problems with the Lung: no Cardiovascular: Problems with Circulation: NO Problems with High Blood pressure: NO Gastrointestinal: Problems with Ulcers: NO Problems with the Liver: no Problems with Bowel Habits: NO Genitourinary: Problems with the Genitals: NO Urinary problems: NO Kidney disease or stones: NO Skin: Any general problems: NO Neurologic: Dizziness, blurred vision, headaches, problems with balance : NO Seizures or Stroke: NO Psychiatric: Emotional or Psychological disorders: NO Depression or Anxiety: no PAST MEDICAL HISTORY: Medical History[1] Allergies[2] PHYSICAL EXAM: Ht 6' (1.829 m) Wt 270 lb (122 kg) BMI 36.62 kg/m This is an age appropriate appearing male who is alert and oriented x 3. The patient appears well nourished. Psychiatric: The patient is able to verbalize normally and seems to have a good understanding of his situation. The left lower extremity is examined. Skin: Skin is warm and dry and ruborous in a dependent position which resolves with elevation No ulcerations or wounds to midfoot or ankle Superficial abrasion noted to dorsum on 3rd toe Lymphatic: No lymphadenopathy Moderate swelling of the midfoot and forefoot Vascular: Capillary refill in the foot/toes is less than 3 seconds. Neurologic: Sensation is absent/decreased to light touch throughout the foot and the ankle . Musculoskeletal: The calf is nontender to palpation. Muscle strength testing limited secondary to injury but Yusef was able to actively dorsiflex, plantarflex, invert and bita the foot and ankle through short arcs of motion ROM: Full ROM of the foot and ankle Alignment: No obvious deformity Areas of Tenderness: minimal tenderness to midfoot RADIOGRAPHIC INTERPRETATION: 3 nonweightbearing views of the Left foot were obtained and the following is my interpretation of the findings present of the X-rays: Previously noted displaced fracture of the tarsal navicular appears slightly widened as compared to previous imaging, though comparison is to weightbearing views which does hinder comparison, with subsidence of the medial cuneiform into the substance of the tarsal navicular. Significant gapping between the medial and middle cuneiforms is still noted indicating instability of the intercuneiform joint with Lisfranc type separation also seen between the base of the second metatarsal and the medial cuneiform. REVIEW OF RELATED PREVIOUS DOCUMENTATION: No documents related to the current problem(s) were reviewed or no documents were available for review. LABORATORY RESULT INTERPRETATION: No labs were reviewed/No labs available for review DIAGNOSIS: Diagnosis Plan 1. Charcot joint of left foot XR foot 3+ views left MEDICAL DECISION MAKING: I had a discussion with Yusef to make sure he has a good understanding of the diagnoses/issues that I think are present today and understands the plan moving forward. I explained to Yusef that his fracture of the left navicular may have widened slightly but is in relatively stable position despite the popping sensation he felt As a result it was decided to place Yusef in a well padded short leg cast with the ankle in neutral dorsiflexion. Yusef was instructed to be nonweight bearing on the left lower extremity in the cast. Yusef verbalized that he needs to get up the 3 flights of stairs to his house and take care of his dog. We discussed continued walking could worsen his foot. We discussed at this time there are no signs of threatened skin in his foot from the Charcot but it could be made worse by continued walking. If Yusef has any problems maintaining this weight bearing status he was instructed to call me so that appropriate instructions can be given. Yusef was instructed to continue to elevate the left lower extremity for comfort. I explained that elevation means keeping the toes at the level of his nose. If his leg is not elevated to that height then it is not truly elevated and he may continue to have swelling and discomfort as a result. I want to see Yusef back in approximately 1 week for revaluation for possible transition out of the cast. If Yusef feels that the above plan of treatment is going poorly or if he is having problems with the above plan he was instructed to call my office to determine if the plan of care needs to be changed or if he needs to be seen sooner than noted above. Follow up in about 1 week (around 10/13/2024). Electronically signed by Haley Sheth PA-C [facility] Department of Orthopedic surgery 10/06/2024 3:30 PM Voice recognition was used for portions of this note and although it was reviewed prior to signing some incorrect words or phrases could be present. [1] Past Medical History: Diagnosis Date Chronic back pain COPD (chronic obstructive pulmonary disease) (HCC) Diabetes mellitus (HCC) Hyperlipidemia Hypertension Neuropathy Restless leg syndrome Scoliosis Sleep apnea [2] Allergies Allergen Reactions Asa [Aspirin] documented in this encounter [facility] 10-01-2024 Telephone encounter Note Form atting of this note might be different from the original. 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 If there is a fax number where he would like the letter to be sent, we can send it sooner that way. [facility] 10-01-2024 Miscellaneous Notes Formattin g of this note might be different from the original. 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 If there is a fax number where he would like the letter to be sent, we can send it sooner that way. Name of Caller: Yusef Contact Reason: Yusef called about the letter for where he lives. He states that it was discussed that it would be beneficial to be on the first floor of his apartment complex. He is requesting that the letter be sent to him in the mail. If there area any issues please call the patient. Office Name: Ortho documented in this encounter [facility] 09-29-2024 Telephone encounter Note Form atting of this note might be different from the original. Name of Caller: Yusef Contact Reason: Yusef called about the letter for where he lives. He states that it was discussed that it would be beneficial to be on the first floor of his apartment complex. He is requesting that the letter be sent to him in the mail. If there area any issues please call the patient. Office Name: Ortho [facility] 09-29-2024 History of Presen t illness Narrative Images from the original note were not included. [facility] - [address] [facility] [id number] Dept: [phone] Dept Yusef Muir 1965 [id number] 09/29/2024 HISTORY OF PRESENT ILLNESS: Yusef is a 59 y.o. male here today for evaluation of his left foot Yusef states the problem has been present for 1 month. He states that he noticed swelling and discomfort in the left foot but cannot recall an injury. He states that he stopped taking insulin about 4 months ago because his doctor said that he might be able to wean off of insulin. At the time his hemoglobin A1c was 6.5. He has not had his hemoglobin A1c checked since that time. He does note that today his blood sugar is at 375 although he blamed it on a recent steroid injection. Yusef states the problem started gradually with no injuries occurring Yusef has tried or has been treated with the following: Tramadol, Gabapentin, boot that he is not wear . Review of Systems Surgical Risk Factors: Allergies to Metals or Latex: NO Have you been treated for a blood clot: yes, bilateral LE Have you had a history of bleeding disorder: NO Have you had a history of Anesthetic problems: NO Do you have tendency to bruise easily: NO Do you experience prolonged or excessive bleeding from cuts or after surgery: NO General/Constitutional: General: no Cancer: NO Acute/Chronic Infections: NO HEENT/Neck: Problems with theThroat: NO Problems with the Eyes: NO Problems with the Ears: NO Problems with the Nose and Sinuses: NO Endocrine: Problems with Diabetes: yes, last A1c Problems with Thyroid Disorder: NO Thorax: Problems with the Heart: does see a cardio in [place] Problems with the Lung: no Cardiovascular: Problems with Circulation: NO Problems with High Blood pressure: NO Gastrointestinal: Problems with Ulcers: NO Problems with the Liver: no Problems with Bowel Habits: NO Genitourinary: Problems with the Genitals: NO Urinary problems: NO Kidney disease or stones: NO Skin: Any general problems: NO Neurologic: Dizziness, blurred vision, headaches, problems with balance : NO Seizures or Stroke: NO Psychiatric: Emotional or Psychological disorders: NO Depression or Anxiety: no PAST MEDICAL HISTORY: Medical History[1] Allergies[2] PHYSICAL EXAM: Ht 1.829 m (6') Wt 122 kg (270 lb) BMI 36.62 kg/m This is an age appropriate appearing male who is alert and oriented x 3. The patient appears well nourished. The patient is able to verbalize normally and seems to have a good understanding of his situation. Normocephalic and atraumatic. Respiratory: No shortness of breath Left lower extremity examination Lymphatic System: Severe swelling of the hindfoot, midfoot, and forefoot Vascular: Dorsalis pedis pulse: 2+ Posterior tibial pulse: 2+ Capillary refill is less than 3 seconds Skin temperature feels warmer in the foot/ankle than in the proximal leg Skin/nails: Erythema of the foot which resolves with elevation of the limb. Ulcers: No ulcer(s) or skin breakdown present Neurologic: Sensation absent/decreased to light touch throughout the foot and the ankle. Deformity: Pes planus Gait and Station: Yusef walks with a limp RADIOGRAPHIC INTERPRETATION: 3 weight bearing views of the left foot were obtained and the following is my interpretation of the findings present of the X-rays: Displaced fracture of the tarsal navicular is noted with subsidence of the medial cuneiform into the substance of the tarsal navicular. Significant gapping between the medial and middle cuneiforms is noted indicating instability of the intercuneiform joint with Lisfranc type separation also seen between the base of the second metatarsal and the medial cuneiform. 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 The 2nd, 3rd, 4th and 5th tarsometatarsal joints appear to be well aligned. Decrease in longitudinal arch height is noted on the weightbearing lateral. REVIEW OF RELATED PREVIOUS DOCUMENTATION: Documents from Dr. Brian were reviewed. LABORATORY RESULT INTERPRETATION: No labs were reviewed/No labs available for review DIAGNOSIS: Diagnosis Plan 1. Charcot joint of left foot Crutches MEDICAL DECISION MAKING: I had a discussion with Yusef to make sure he has a good understanding of the diagnoses/issues that I think are present today and understands the plan moving forward. I explained to Yusef that he has Charcot Arthropathy of the left midfoot. I explained to Yusef the various theories for why individuals with neuropathy develop Charcot arthropathy. We discussed the potential problems that individuals that have Charcot arthropathy can develop including but not limited to: Foot/ankle deformity, skin ulceration, infection (soft tissues and bone), difficulty or loss of the ability to ambulate. These problems, assuming no infections occur, can lead to the need for walking aids (wheelchair/scooter, walker, cane), custom shoes and inserts, [place] boot, decrease in activity level, and a potential change in ability to work. If an infection occurs then an amputation of part of the foot or of the leg sometimes becomes necessary. We also discussed the importance of strict blood glucose control in order to try to shorten the course of the arthropathy. I explained that patients with uncontrolled blood sugar are at increased risk of poorer outcomes. I explained the natural history of Charcot arthropathy and the fact that it can take 12-18 months to resolve and weight bearing activities must be restricted until the process has entered the healing phase. Failure to comply with weight bearing restrictions or shoe wear recommendations can lead to loss of the limb. I explained that Charcot can be treated non-operatively or operatively with the goal of either treatment being protection of the skin to prevent ulceration. With either type of treatment foot/ankle deformity can occur as can infection and the need for amputation. After having the above discussion it was decided to treat Yusef with a well padded short leg cast. We will see him back in 1 week for cast change as his swelling will likely decrease substantially in the next week if he stays off of it. I talked him about the risks of walking in the cast. I explained that if he does not stay off the foot he risk further collapse, ulceration, infection and the need for an amputation in the future. Once his swelling has decreased we will eventually transition him to a [place] boot but will likely maintain nonweightbearing over the next several months. Follow up in about 1 week (around 10/06/2024) for cast change, haley . Electronically signed by Ricardo Smith MD [facility] Department of Orthopedic surgery 09/29/2024 1:03 PM Voice recognition was used for portions of this note and although it was reviewed prior to signing some incorrect words or phrases could be present. [1] Past Medical History: Diagnosis Date Chronic back pain COPD (chronic obstructive pulmonary disease) (HCC) Diabetes mellitus (HCC) Hyperlipidemia Hypertension Neuropathy Restless leg syndrome Scoliosis Sleep apnea [2] Allergies Allergen Reactions Asa [Aspirin] documented in this encounter [facility] 09-24-2024 Note Exam Date Time Procedure Performing Provider Status 09/24/24 3:51 PM XR Fluoro Guide for Therapy Injection Modified [id number] ORIGINAL Images acquired, not reported on this accession number. [facility]2025 Hospital Discharge instructions Patient Education 09/24/2024 13:42:58 Epidural Steroid Injection, Care After Epidural Steroid Injection, Care After Refer to this sheet in the next few weeks. These instructions provide you with information about caring for yourself after your procedure. Your health care provider may also give you more specific instructions. Your treatment has been planned according to current medical practices, but problems sometimes occur. Call your health care provider if you have any problems or questions after your procedure. What can I expect after the procedure? After your procedure, it is common to feel a little discomfort at the injection site. Follow these instructions at home: For 24 hours after the procedure: ?Avoid using heat on the injection site. ?Do not take a tub bath, and do not soak in water. ?Do not drive if you received a medicine to help you relax (sedative). If directed, put ice on the injection site: ?Put ice in a plastic bag. ?Place a towel between your skin and the bag. ?Leave the ice on for 20 minutes, 2 3 times a day. Return to your normal activities as told by your health care provider. Ask your health care provider what activities are safe for you. You may remove the bandage (dressing) after 24 hours. Take zrga-wcd-smwdjjc and prescription medicines only as told by your health care provider. Keep all follow-up visits as told by your health care provider. This is important. Contact a health care provider if: You have a fever. You continue to have pain and soreness around the injection site, even after taking lovh-tvs-mfrljqj pain medicine. You have severe, sudden, or lasting nausea or vomiting. Get help right away if: You have severe pain at the injection site that is not relieved by medicines. You develop a severe headache or a stiff neck. You become sensitive to light. You have any new numbness or weakness in your legs or arms. You lose control of your bladder or bowel movements. You have trouble breathing. This information is not intended to replace advice given to you by your health care provider. Make sure you discuss any questions you have with your health care provider. Document Released: 07/09/2011 Document Revised: 03/06/2018 Document Reviewed: 07/09/2016 [employer] Patient Education 2020 ETC Education. Follow Up Care 09/10/2024 15:13:15 With:JOSEPH VALENTINE MD Address: [address] [place] [address] [place] [address] [phone] When: Unknown Comments:Follow up as scheduled [facility] 2025 Summary of episode note Discharge Instructions Thank you for allowing [facility] to assist you with your healthcare needs. The following is importantdischarge information regarding your hospital visit. Your Care Team CARLEE MCGREGOR What to do next Scheduled Follow-Up Appointments Appointment Type When With Where Contact Information StatusPM OV 10/06/2024 09:00 AM ARCHIE CHERRY [facility] PM [address] [address]- [phone] Confirmed PC Wellness Annual 11/08/2024 08:30 AM EDT CARLEE MCGREGOR APRN-NOE [facility] Silvia Confirmed MEDS - Diabetic Individual Visit 11/12/2024 09:30 AM EDT [facility] [phone] Confirmed Echo - Echocardiogram Adult 12/13/2024 09:00 AM EDT [facility] [phone] Confirmed CV OV 12/17/2024 09:15 AM EDT HANSEL HAWKINS [facility] Confirmed Follow Up Appointments Follow Up with JOSEPH VALENTINE MD Where:[address] [facility] [address] [facility] [place] [address]- [phone] Additional Information: Follow up as scheduled Allergies aspirin bloody nose Medications Please ask your primary doctor or pharmacist before taking any other medication not listed, including over the counter drugs, herbal medications, vitamins and or supplements as they may interact withyour home medications. What How Much When Why Instructions Last Dose Unchanged albuterol (Albuterol (Eqv-Proventil HFA) 90mcg/ inh inhalation aerosol) 2 inh by inhalation Every 6 hours as needed for as needed for shortness of breath or wheezing Unchanged ammonium lactate topical (Kerasal AL 12% topical lotion) 1 application Topical Every day Unchanged cyclobenzaprine (cyclobenzaprine 10 mg oral tablet) See instructions TAKE 1 TABLET THREE TIMES DAILY BY MOUTH NEEDED Unchanged DME (Alcohol Swabs) See instructions 1 box Unchanged DME (Blood Glucose Test Machine) See instructions Device as determined by insurance coverage Unchanged DME (Blood Glucose Test Strips) See instructions Testing blood glucose TID. 1 bottle of 100 strips Unchanged DME (DME MISCellaneous) See instructions Libre3 Plus Sensors. #2 sensors. Apply sensor to arm once every 15 days to monitor sugars Unchanged DME (FreeStyle Molly 3 [place]) See instructions Use reader to scan sensor once with every new sensor. Keep reader within 33 feet of the sensor and transmitter for daily blood sugar checks Unchanged DME (Lancets) See instructions Testing blood glucose TID.1 box Unchanged DME (Pen needles) See instructions Insulin administration 1 times daily qs for 1 month supply Unchanged dulaglutide (Trulicity Pen 3 mg/ 0.5 mL subcutaneous solution) 3 Milligram Subcutaneous Every week rotate injection sites Unchanged empagliflozin (Jardiance 25 mg oral tablet) 1 tab(s) by mouth Once a day (in the morning) Unchanged folic acid (folic acid 1 mg oral tablet) 1 tab(s) by mouth Once a day Duration: 90 Days Unchanged furosemide (Lasix 20 mg oral tablet) 1 tab(s) by mouth Once a day Duration: 90 Days Unchanged gabapentin (gabapentin 600 mg oral tablet) 2 tab(s) by mouth Three (3) times a day Diabetic neuropathy Duration: 30 Days 1200 mg 3 times daily Unchanged insulin glargine (Lantus Solostar Pen 100 units/ mL 3 mL Pen) 25 unit(s) Subcutaneous Once a day Unchanged metoprolol (metoprolol succinate 25 mg oral TABLET extended release) 1 tab(s) by mouth Once a day Duration: 90 Days Do not crush or chew (controlled release) Unchanged Misc Medication (FREESTYLE MOLLY 3 READER EACH) Unchanged mupirocin topical (mupirocin 2% topical cream) 1 application Topical Three (3) times a day Blister of fifth toe, right Unchanged rOPINIRole (rOPINIRole 1 mg oral tablet) 1 tab(s) by mouth Once a day Unchanged sacubitril-valsartan (Entresto 24 mg-26 mg oral tablet) 1 tab(s) by mouth Two (2) times a day Unchanged simvastatin (simvastatin 20 mg oral tablet) 1 tab(s) by mouth Daily at bedtime Please take this list to your next doctor s visit. Bring all medications you take, including over the counter medications, herbals and other supplements with you to your doctor s visit. Patients and families are reminded to discard old lists and to update any records with all medication providers or retail pharmacies. Education Materials Epidural Steroid Injection, Care After Refer to this sheet in the next few weeks. These instructions provide you with information about caring for yourself after your procedure. Your health care provider may also give you more specific instructions. Your treatment has been planned according to current medical practices, but problems sometimes occur. Call your health care provider if you have any problems or questions after your procedure. What can I expect after the procedure? After your procedure, it is common to feel a little discomfort at the injection site. Follow these instructions at home: For 24 hours after the procedure: ? Avoid using heat on the injection site. ? Do not take a tub bath, and do not soak in water. ? Do not drive if you received a medicine to help you relax (sedative). If directed, put ice on the injection site: ? Put ice in a plastic bag. ? Place a towel between your skin and the bag. ? Leave the ice on for 20 minutes, 2 3 times a day. Return to your normal activities as told by your health care provider. Ask your health care provider what activities are safe for you. You may remove the bandage (dressing) after 24 hours. Take rkre-fgr-madkijj and prescription medicines only as told by your health care provider. Keep all follow-up visits as told by your health care provider. This is important. Contact a health care provider if: You have a fever. You continue to have pain and soreness around the injection site, even after taking udxj-ozu-fsuqjwc pain medicine. You have severe, sudden, or lasting nausea or vomiting. Get help right away if: You have severe pain at the injection site that is not relieved by medicines. You develop a severe headache or a stiff neck. You become sensitive to light. You have any new numbness or weakness in your legs or arms. You lose control of your bladder or bowel movements. You have trouble breathing. This information is not intended to replace advice given to you by your health care provider. Make sure you discuss any questions you have with your health care provider. Document Released: 07/09/2011 Document Revised: 03/06/2018 Document Reviewed: 07/09/2016 [employer] Patient Education 2020 [employer] Additional Information VACCINATE! IT SAVES LIVES! Members of the community who have not yet received the COVID-19 vaccine and would like to receive it can visit one of [facility] vaccine clinics. There are many vaccine clinic locations within the [facility]. For locations and available times, please visit https://gettheshot.coronavirus.[place].gov/. It is important to note that some COVID mobile vaccine clinics are held outdoors and may be canceled in rainy or stormy conditions. To learn more about pediatric vaccinations (ages 5-11), we invite you to visit the [facility] webpage. https://www.[facility].org/pages/[email or web address]-Sagre-Lcgyaadaaii-Vjxskywcch-Zspvl-Jml stions.htmlTo learn more about the COVID-19 vaccine, we invite you to visit the CDC website for a list of frequently asked questions.https://www.cdc.gov/coronavirus/2019-ncov/vaccines/faq.html [email or web address] Patient Portal Access Instructions: Stay connected with your healthcare team and access your personal medical information anytime with the [email or web address] Patient Portal. Please follow the directions below to create your [employer] account: 1.Access the email account you provided upon registration to the hospital/physician office.2.Look for an invitation email from [facility].3.Open the email and access the invitation link: AcceptInvitation to [email or web address].4.Fill in the required allen to create your account. To access your account, visit [email or web address]. Click the blue button labeled Access Patient Portal and then log in with the username and password that you created in the steps above. You will be able to view your test results, lab results, a summary of your visits, upcoming appointments and more. There is also a convenient messaging option where you can send secure messages to your p Trly [employer]. In addition, you will have the ability to download any documents or summaries to your computer and/or send the information securely to a physician. Remember that your healthcare information is confidential, so carefully consider who you will allowto register on the [email or web address] Patient Portal for access to your information. You can also access the [email or web address] Patient Portal on the [facility] lazaro. Simply click on Patient Portal and then log into your account. If you would like to receive a full copy of your medical records, please contact the [facility] Medical Records Department by calling [phone], Friday through Friday between 8 a.m. and 4:30 p.m. HOW TO SAFELY DISPOSE OF PRESCRIPTION MEDICATIONS Please use one of the following methods to safely dispose of your unused medications. 1.Use a drug disposal kit: the drug disposal pouch allows you to safely discard your old and unuseddrugs. Ask your nurse to give you one when you are discharged.2.Visit a local take-back location: Many local pharmacies and police departments have programs that collect old and unwanted prescriptiondrugs. Call your local pharmacy or go to http://bit.Photo Rankr/5Q2Ve6t to find one close to you.3.Make use of household items: Use cat litter or old coffee grounds to dispose medications if other options arenot available. Mix your drugs with these household products, seal them in an airtight container andthrow it into the garbage. Call [facility]: [phone] to be sure your drugs can be disposed of in this way. Some medicines may require a different approach.4.Never flush your medications down the toilet. IF YOU HAVE BEEN PRESCRIBED AN OPIOID FOR PAIN If you have been prescribed an opioid (such as hydrocodone, oxycodone or morphine), it is critical to understand the possible side effects and risks of opioid pain medications. Even when taken as directed, opioids can have several side effects including: Tolerance, meaning you might need to take more of a medication for the same pain relief. Nausea, vomiting and/or constipation. Sleepiness, dizziness, dry mouth, confusion, depression or itching. Physical dependence, meaning you have withdrawal symptoms when a medication is stopped, can develop within a few days. KNOW YOUR RESPONSIBILITIES It is important to know exactly how much and how often to take the opioid pain medications you are prescribed. Never take opioids in higher amounts or more often than prescribed. Do not combine opioids with alcohol or other drugs that cause drowsiness, such as benzodiazepines, also known as benzos, including diazepam and alprazolam, muscle relaxants or sleep aids. Never sell or share prescription opioids. This is illegal. Store opioids in a secure place and out of reach of others (including children, family, friends and visitors). The last page of this document has been signed and retained as a CHART COPY. Signatures Patient Education Materials Epidural Steroid Injection, Care After Medication Leaflets My discharge plan and instructions have been reviewed and explained to me and I,MORETTO, YUSEF understand my current condition and have read and understand these discharge instructions. I have received a written copy of the plan/instructions. If I have questions, I am aware that I should contact my doctor. 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 Multiplanar reformatted images are provided for review. Automated exposure control, iterative reconstruction, and/or weight based adjustment of the mA/kV was utilized to reduce the radiation dose to as low as reasonably achievable. COMPARISON: Ankle radiograph dated 09/01/2024 HISTORY ORDERING SYSTEM PROVIDED HISTORY: Reason for Exam: Fracture FINDINGS: Diffuse lower extremity edema and swelling most pronounced at the dorsum of the forefoot and midfoot.. Limited evaluation of the tendons and ligaments on CT. Vascular calcifications. There is posterior tibial tenosynovitis (series 2, image 32). Accessory navicularis. Retrocalcaneal enthesopathy. Small ossicles at the tip of the medial and lateral malleoli suspicious for underlying ligamentous avulsion. Os trigonum. Punctate bone fragment adjacent to the lateral calcaneus likely related to lateral ligamentous avulsion. Small bone fragments at the medial talus likely ligamentous avulsion. Comminuted mid navicular fracture with distraction of approximately 7 mm between bone fragments. There is disruption of the talonavicular joint with dorsal navicular displacement. There is proximal impaction of the 1st cuneiform. Multiple small bone fragments are seen within the inter cuneiform and tarsometatarsal joint space most pronounced at the C1-C2 articulation which is widened. Small bone fragments at the bases of the 1st and 2nd metatarsals. Bony avulsions of the 2nd cuneiform and fracture of the plantar 3rd cuneiform. The Lisfranc interval is widened up to 1 cm. Fracture of the dorsal anterior calcaneal process measuring 3 mm. There is a small ankle joint effusion. There is obliteration of the fat within the sinus tarsi. Plantar calcaneal spur. There is midfoot collapse and evidence of pes planus. Mild hindfoot valgus. Talar dome is preserved. There are no suspicious osseous lesions. No well-defined or drainable fluid collections/abscess. IMPRESSION: Findings consistent with a recent multi ligamentous midfoot injury involving the Lisfranc and Chopart joints with evidence of midfoot collapse and pes planus. Multiple avulsion fractures are present involving the tarsal metatarsal joints, dorsal anterior process of the calcaneus, talus, cuneiforms and navicular. Medial and lateral ankle ligamentous avulsion injuries. Posterior tibial tendon tenosynovitis. Diffuse lower extremity swelling. Additional findings as detailed above. Interpreted by: Jacquelin Dawn Preliminary Report By: Jacquelin Dawn Electronically signed By Jacquelin Dawn Dictated Date: 09/22/2024 10:38:01 AM Prelim Date: 09/22/2024 10:51:03 AM Sign Date: 09/22/2024 10:51:03 AM Ordering Provider: ABRAHAM BRIAN [facility]05-28-2025 Hospital Discharge instructions Patient Education 09/01/2024 10:00:03 Walker Boot Aircast Sp-Walker Boot Traditional splints and casts for the foot and ankle protect the injury by preventing movement at the joints. However, many injuries heal better and faster if the injured joint can be moved, but be protected at the same time. This is the reason for using an Aircast Walker boot. This is a short boot that supports and protects to the foot and ankle while allowing you to walk. It has padded air cells that provide compression and help circulation. It is used for both foot and ankle injuries both sprains and minor fractures. Ankle and foot sprains can take 4 to 6 weeks or longer to heal. People with severe injuries or those over age 60 may need more time to heal. During that time, you are prone to re-injury by suddenly twisting your foot or ankle again while the ligaments are still weak. When treating a sprain, the Aircast Walker boot should be worn whenever walking for at least 4 weeks, or as long as you continue to have ankle pain. Talk to your healthcare provider for specific advice about the treatment of your condition. Air-Stirrup and SP-Walker are trademarks of [employer]. For more information about their products, see www.[employer]. 9089-4904 The app[address]evr. [address] [place] [address], [place] [address]. All rights reserved. This information is not intended as a substitute for professional medical care. Always follow yourhealthcare professional's instructions. 09/01/2024 09:49:12 Fracture, Foot Foot Fracture You have a broken bone (fracture) in your foot. This will cause pain, swelling, and often bruising.It will usually take about 4 to 8 weeks to heal. A foot fracture may be treated with a special shoe, splint, cast, or boot. Home care Follow these guidelines when caring for yourself at home: You may be given a splint, cast, shoe, or boot to keep the injured area from moving. Unless you were told otherwise, use crutches or a walker. Don t put weight on the injured foot until your health care provider says you can do so. (You can rent crutches and a walker at many pharmacies and surgicalor orthopedic supply stores.) Don t put weight on a splint, or it will break. Keep your leg elevated to reduce pain and swelling. When sleeping, put a pillow under the injured leg. When sitting, support the injured leg so it is above your waist. This is very important during the first 2 days (48 hours). Put an ice pack on the injured area. Do this for 20 minutes every 1 to 2 hours the first day for pain relief. You can make an ice pack by wrapping a plastic bag of ice cubes in a thin towel. As the ice melts, be careful that the splint, cast, boot, or shoe doesn t get wet. You can place the ice pack directly over the splint or cast. Unless told otherwise, you can open the boot or shoe to apply the ice pack. Continue using the ice pack 3 to 4 times a day for the next 2 days. Then use the ice pack as needed to ease pain and swelling. Keep the splint, cast, boot, or shoe dry. When bathing, protect it with a large plastic bag, rubber-banded at the top end. If a fiberglass splint or cast or boot gets wet, you can dry it with a hair spinner. Unless told otherwise, you can take off the boot or shoe to bathe. You may use acetaminophen or ibuprofen to control pain, unless another pain medicine was prescribed. If you have chronic liver or kidney disease, talk with your healthcare provider before using thesemedicines. Also talk with your provider if you ve had a stomach ulcer or gastrointestinal bleeding. Don t put creams or objects under the cast if you have itching. Follow-up care Follow up with your healthcare provider, or as advised. This is to make sure the bone is healing the way it should. If you were given a splint, it may be changed to a cast or boot at your follow-up visit. X-rays may be taken. You will be told of any new findings that may affect your care. When to seek medical advice Call your healthcare provider right away if any of these occur: The cast or splint cracks The plaster cast or splint becomes wet or soft The fiberglass cast or splint stays wet for more than 24 hours Bad odor from the cast or wound fluid stains the cast Tightness or pain under the cast or splint gets worse Toes become swollen, cold, blue, numb, or tingly You can t move your toes Skin around cast or splint becomes red Fever of 100.4 F (38 C) or higher, or as directed by your healthcare provider [phone] The app[employer]r. [address] [place] [address]. All rights reserved. This information is not intended as a substitute for professional medical care. Always follow yourhealthcare professional's instructions. Follow Up Care 09/01/2024 08:32:29 With:[facility] Address: When:2-4 days With:SIMEON BEAVERS MD Address: [address] [facility], [place] [address] [phone] When:2-4 days [facility] 05-28-2025 Note Discharge Instructions Thank you for allowing [facility] to assist you with your healthcare needs. The following is importantdischarge information regarding your hospital visit. Diagnosis from Today's Visit Fracture of foot bone, left, closed What to Do Next Instructions from Your Care Team You have a fracture in your foot called a navicular fracture. You also have what is concerning for a ligament rupture called Lisfranc ligament rupture. This injury can be associated with significant complications if not corrected. You need to call a orthopedist today to arrange a follow-up appointment. The orthopedist on-call for this hospital recommends a trauma orthopedist. Numbers for orthopedic offices in the area have been provided. Wear the boot provided when walking until you see the orthopedist. Discharge Home Equipment - Ordered -- Walking Boot, 99 month(s), 09/01/24 9:51:00 EDT Post Acute Orders No qualifying data available. You Need to Schedule the Following Appointments Follow Up with [facility] When:Within 2-4 days Where: Follow Up with SIMEON BEAVERS MD When:Within 2-4 days Where:[address] [facility], [place] [address]- [phone] Allergies aspirin bloody nose Medications Please ask your primary doctor or pharmacist before taking any other medication not listed, including over the counter drugs, herbal medications, vitamins and or supplements as they may interact withyour home medications. What How Much When Why Instructions Last Dose New acetaminophen-hydrocodone ([place] 325- 5 mg oral tablet) 1 tab(s) by mouth Every 6 hours as needed for for pain Fracture of foot bone, left, closed Duration: 3 Days Printed Prescription Unchanged albuterol (Albuterol (Eqv-Proventil HFA) 90 mcg/ inh inhalation aerosol) 2 inh by inhalation Every 6 hours as needed for as needed for shortness of breath or wheezing Unchanged ammonium lactate topical (Kerasal AL 12% topical lotion) 1 application Topical Every day Unchanged cyclobenzaprine (cyclobenzaprine 10 mg oral tablet) See instructions TAKE 1 TABLET THREE TIMES DAILY BY MOUTH NEEDED Unchanged DME (Alcohol Swabs) See instructions 1 box Unchanged DME (Blood Glucose Test Machine) See instructions Device as determined by insurance coverage Unchanged DME (Blood Glucose Test Strips) See instructions Testing blood glucose TID. 1 bottle of 100 strips Unchanged DME (DME MISCellaneous) See instructions Libre3 Plus Sensors. #2 sensors. Apply sensor to arm once every 15 days to monitor sugars Unchanged DME (FreeStyle Molly 3 [place]) See instructions Use reader to scan sensor once with every new sensor. Keep reader within 33 feet of the sensor and transmitter for daily blood sugar checks Unchanged DME (Lancets) See instructions Testing blood glucose TID.1 box Unchanged DME (Pen needles) See instructions Insulin administration 1 times daily qs for 1 month supply Unchanged dulaglutide (Trulicity Pen 3 mg/ 0.5 mL subcutaneous solution) 3 Milligram Subcutaneous Every week rotate injection sites Unchanged empagliflozin (Jardiance 25 mg oral tablet) 1 tab(s) by mouth Once a day (in the morning) Unchanged folic acid (folic acid 1 mg oral tablet) 1 tab(s) by mouth Once a day Duration: 90 Days Unchanged furosemide (Lasix 20 mg oral tablet) 1 tab(s) by mouth Once a day Duration: 90 Days Unchanged gabapentin (gabapentin 600 mg oral tablet) 2 tab(s) by mouth Three (3) times a day Diabetic neuropathy Duration: 30 Days 1200 mg 3 times daily Unchanged insulin glargine (Lantus Solostar Pen 100 units/ mL 3 mL Pen) 25 unit(s) Subcutaneous Once a day Unchanged metoprolol (metoprolol succinate 25 mg oral TABLET extended release) 1 tab(s) by mouth Once a day Duration: 90 Days Do not crush or chew (controlled release) Unchanged Misc Medication (FREESTYLE MOLLY 3 READER EACH) Unchanged mupirocin topical (mupirocin 2% topical cream) 1 application Topical Three (3) times a day Blister of fifth toe, right Unchanged rOPINIRole (rOPINIRole 1 mg oral tablet) 1 tab(s) by mouth Once a day Unchanged sacubitril-valsartan (Entresto 24 mg-26 mg oral tablet) 1 tab(s) by mouth Two (2) times a day Unchanged simvastatin (simvastatin 20 mg oral tablet) 1 tab(s) by mouth Daily at bedtime Unchanged thiamine (thiamine 100 mg oral tablet) 1 tab(s) by mouth Every day Please take this list to your next doctor s visit. Bring all medications you take, including over the counter medications, herbals and other supplements with you to your doctor s visit. Patients and families are reminded to discard old lists and to update any records with all medication providers or retail pharmacies. Medication Leaflets acetaminophen and hydrocodone (a SEET a MIN oh fen and feli ROSEN done) Verdrocet What is the most important information I should know about acetaminophen and hydrocodone? MISUSE OF OPIOID MEDICINE CAN CAUSE ADDICTION, OVERDOSE, OR . Keep the medication in a place where others cannot get to it. Taking opioid medicine during may cause life-threatening withdrawal symptoms in the . Fatal side effects can occur if you use opioid medicine with alcohol, or with other drugs that cause drowsiness or slow your breathing. Stop taking this medicine and call your doctor right away if you have skin redness or a rash that spreads and causes blistering and peeling. What is acetaminophen and hydrocodone? Acetaminophen and hydrocodone is a combination medicine used to relieve moderate to severe pain. Acetaminophen and hydrocodone contains an opioid medicine, and may be habit-forming. Acetaminophen and hydrocodone may also be used for purposes not listed in this medication guide. What should I discuss with my healthcare provider before taking acetaminophen and hydrocodone? You should not use this medicine if you are allergic to acetaminophen or hydrocodone, or if you have: severe asthma or breathing problems; or a blockage in your stomach or intestines. Tell your doctor if you have ever had: breathing problems, sleep apnea (breathing stops during sleep); liver disease; a drug or alcohol addiction; kidney disease; a head injury or seizures; urination problems; or problems with your thyroid, pancreas, or gallbladder. If you use opioid medicine while you are , your baby could become dependent on the drug. This can cause life-threatening withdrawal symptoms in the baby after it is born. Babies born dependent on opioids may need medical treatment for several weeks. Ask a doctor before using opioid medicine if you are . Tell your doctor if you notice severe drowsiness or slow breathing in the nursing baby. How should I take acetaminophen and hydrocodone? Follow all directions on your prescription label. Never take this medicine in larger amounts, or for longer than prescribed. An overdose can damage your liver or cause . Tell your doctor if you feel an increased urge to use more of this medicine. Never share this medicine with another person, especially someone with a history of drug abuse or addiction. MISUSE CAN CAUSE ADDICTION, OVERDOSE, OR . Keep the medicine in a place where others cannot get to it. Selling or giving away this medicine is against the law. Measure liquid medicine carefully. Use the dosing syringe provided, or use a medicine dose-measuring device (not a kitchen spoon). If you need surgery or medical tests, tell the doctor ahead of time that you are using this medicine. You should not stop using this medicine suddenly. Follow your doctor's instructions about tapering your dose. Store at room temperature away from moisture and heat. Keep track of your medicine. You should be aware if anyone is using it improperly or without a prescription. Do not keep leftover opioid medication. Just one dose can cause in someone using this medicine accidentally or improperly. Ask your pharmacist where to locate a drug take-back disposal program.If there is no take-back program, flush the unused medicine down the toilet. What happens if I miss a dose? Since this medicine is used for pain, you are not likely to miss a dose. Skip any missed dose if itis almost time for your next dose. Do not use two doses at one time. What happens if I overdose? Seek emergency medical attention or call the Poison Help line at . An overdose of this medicine can be fatal, especially in a child or other person using the medicine without a prescription. Overdose symptoms may include nausea, vomiting, sweating, severe drowsiness, pinpoint pupils, slow breathing, or no breathing. Your doctor may recommend you get naloxone (a medicine to reverse an opioid overdose) and keep it with you at all times. A person caring for you can give the naloxone if you stop breathing or don't wake up. Your caregiver must still get emergency medical help and may need to perform CPR (cardiopulmonary resuscitation) on you while waiting for help to arrive. Anyone can buy naloxone from a pharmacy or local health department. Make sure any person caring foryou knows where you keep naloxone and how to use it. What should I avoid while taking acetaminophen and hydrocodone? Avoid driving or operating machinery until you know how this medicine will affect you. Dizziness ordrowsiness can cause falls, accidents, or severe injuries. Do not drink alcohol. Dangerous side effects or could occur. Ask a doctor or pharmacist before using any other medicine that may contain acetaminophen (sometimes abbreviated as APAP). Taking certain medications together can lead to a fatal overdose. What are the possible side effects of acetaminophen and hydrocodone? Get emergency medical help if you have signs of an allergic reaction: hives; difficulty breathing; swelling of your face, lips, tongue, or throat. Opioid medicine can slow or stop your breathing, and may occur. A person caring for you should give naloxone and/or seek emergency medical attention if you have slow breathing with long pauses,blue colored lips, or if you are hard to wake up. In rare cases, acetaminophen may cause a severe skin reaction that can be fatal. This could occur even if you have taken acetaminophen in the past and had no reaction. Stop taking this medicine and call your doctor right away if you have skin redness or a rash that spreads and causes blistering andpeeling. Call your doctor at once if you have: noisy breathing, sighing, shallow breathing, breathing that stops; a light-headed feeling, like you might pass out; liver problems--nausea, upper stomach pain, tiredness, loss of appetite, dark urine, jarad-colored stools, jaundice (yellowing of the skin or eyes); low cortisol levels-- nausea, vomiting, loss of appetite, dizziness, worsening tiredness or weakness; o high levels of serotonin in the body--agitation, hallucinations, fever, sweating, shivering, fast heart rate, muscle stiffness, twitching, loss of coordination, nausea, vomiting, diarrhea. Serious breathing problems may be more likely in older adults and in those who are debilitated or have wasting syndrome or chronic breathing disorders. Common side effects include: dizziness, drowsiness, feeling tired; nausea, vomiting, stomach pain; constipation; or headache. This is not a complete list of side effects and others may occur. Call your doctor for medical advice about side effects. You may report side effects to FDA at 9-545-XMB-4154. What other drugs will affect acetaminophen and hydrocodone? You may have breathing problems or withdrawal symptoms if you start or stop taking certain other medicines. Tell your doctor if you also use an antibiotic, antifungal medication, heart or blood pressure medication, seizure medication, or medicine to treat HIV or hepatitis C. Opioid medication can interact with many other drugs and cause dangerous side effects or . Be sure your doctor knows if you also use: cold or allergy medicines, bronchodilator asthma/COPD medication, or a diuretic ('water pill'); medicines for motion sickness, irritable bowel syndrome, or overactive bladder; other opioids--opioid pain medicine or prescription cough medicine; a sedative like Valium--diazepam, alprazolam, lorazepam, Xanax, Klonopin, Versed, and others; drugs that make you sleepy or slow your breathing--a sleeping pill, muscle relaxer, medicine to treat mood disorders or mental illness; drugs that affect serotonin levels in your body--a stimulant, or medicine for depression, Parkinson's disease, migraine headaches, serious infections, or nausea and vomiting. This list is not complete. Other drugs may affect acetaminophen and hydrocodone, including prescription and [id number] medicines, vitamins, and herbal products. Not all possible interactions are listed here. Where can I get more information? Your doctor or pharmacist can provide more information about acetaminophen and hydrocodone. Remember, keep this and all other medicines out of the reach of children, never share your medicines with others, and use this medication only for the indication prescribed. Every effort has been made to ensure that the information provided by [employer]. ('[employer]') is accurate, up-to-date, and complete, but no guarantee is made to that effect. Drug information contained herein may be time sensitive. [employer] information has been compiled for use by healthcare practitioners and consumers in the [place] and therefore [employer] does not warrant that uses outside of the [place] are appropriate, unless specifically indicated otherwise. [employer] drug information does not endorse drugs, diagnose patients or recommend therapy. [employer] drug information isan informational resource designed to assist licensed healthcare practitioners in caring for their p atients and/or to serve consumers viewing this service as a supplement to, and not a substitute for, the expertise, skill, knowledge and judgment of healthcare practitioners. The absence of a warningfor a given drug or drug combination in no way should be construed to indicate that the drug or drug combination is safe, effective or appropriate for any given patient. [employer] does not assume any responsibility for any aspect of healthcare administered with the aid of information [employer] provides. The information contained herein is not intended to cover all possible uses, directions, precautions, warnings, drug interactions, allergic reactions, or adverse effects. If you have questions about the drugs you are taking, check with your doctor, nurse or pharmacist. Copyright 3213-8203 [employer]. Version: 19.02. Revision Date: 07/15/2023. Education Materials Aircast Sp-Walker Boot Traditional splints and casts for the foot and ankle protect the injury by preventing movement at the joints. However, many injuries heal better and faster if the injured joint can be moved, but be protected at the same time. This is the reason for using an Plerts Walker boot. This is a short boot that supports and protects to the foot and ankle while allowing you to walk. It has padded air cells that provide compression and help circulation. It is used for both foot and ankle injuries both sprains and minor fractures. Ankle and foot sprains can take 4 to 6 weeks or longer to heal. People with severe injuries or those over age 60 may need more time to heal. During that time, you are prone to re-injury by suddenly twisting your foot or ankle again while the ligaments are still weak. When treating a sprain, the Plerts Walker boot should be worn whenever walking for at least 4 weeks, or as long as you continue to have ankle pain. Talk to your healthcare provider for specific advice about the treatment of your condition. Air-Stirrup and SP-Walker are trademarks of [employer]. For more information about their products, see www.[employer]. 8256-2833 [address] [employer]. [address] [place] [address]. All rights reserved. This information is not intended as a substitute for professional medical care. Always follow yourhealthcare professional's instructions. Foot Fracture You have a broken bone (fracture) in your foot. This will cause pain, swelling, and often bruising.It will usually take about 4 to 8 weeks to heal. A foot fracture may be treated with a special shoe, splint, cast, or boot. Home care Follow these guidelines when caring for yourself at home: You may be given a splint, cast, shoe, or boot to keep the injured area from moving. Unless you were told otherwise, use crutches or a walker. Don t put weight on the injured foot until your health care provider says you can do so. (You can rent crutches and a walker at many pharmacies and surgicalor orthopedic supply stores.) Don t put weight on a splint, or it will break. Keep your leg elevated to reduce pain and swelling. When sleeping, put a pillow under the injured leg. When sitting, support the injured leg so it is above your waist. This is very important during the first 2 days (48 hours). Put an ice pack on the injured area. Do this for 20 minutes every 1 to 2 hours the first day for pain relief. You can make an ice pack by wrapping a plastic bag of ice cubes in a thin towel. As the ice melts, be careful that the splint, cast, boot, or shoe doesn t get wet. You can place the ice pack directly over the splint or cast. Unless told otherwise, you can open the boot or shoe to apply the ice pack. Continue using the ice pack 3 to 4 times a day for the next 2 days. Then use the ice pack as needed to ease pain and swelling. Keep the splint, cast, boot, or shoe dry. When bathing, protect it with a large plastic bag, rubber-banded at the top end. If a fiberglass splint or cast or boot gets wet, you can dry it with a hair spinner. Unless told otherwise, you can take off the boot or shoe to bathe. You may use acetaminophen or ibuprofen to control pain, unless another pain medicine was prescribed. If you have chronic liver or kidney disease, talk with your healthcare provider before using thesemedicines. Also talk with your provider if you ve had a stomach ulcer or gastrointestinal bleeding. Don t put creams or objects under the cast if you have itching. Follow-up care Follow up with your healthcare provider, or as advised. This is to make sure the bone is healing the way it should. If you were given a splint, it may be changed to a cast or boot at your follow-up visit. X-rays may be taken. You will be told of any new findings that may affect your care. When to seek medical advice Call your healthcare provider right away if any of these occur: The cast or splint cracks The plaster cast or splint becomes wet or soft The fiberglass cast or splint stays wet for more than 24 hours Bad odor from the cast or wound fluid stains the cast Tightness or pain under the cast or splint gets worse Toes become swollen, cold, blue, numb, or tingly You can t move your toes Skin around cast or splint becomes red Fever of 100.4 F (38 C) or higher, or as directed by your healthcare provider [id number] The [employer]. [address] [place], [place] [id number]. All rights reserved. This information is not intended as a substitute for professional medical care. Always follow yourhealthcare professional's instructions. Additional Information VACCINATE! IT SAVES LIVES! Members of the community who have not yet received the COVID-19 vaccine and would like to receive it can visit one of [facility] vaccine clinics. There are many vaccine clinic locations within the [facility]. For locations and available times, please visit www.[email or web address].[place].gov/. It is important to note that some COVID mobile vaccine clinics are held outdoors and may be canceled in rainy or stormy conditions. To learn more about pediatric vaccinations (ages 5-11), we invite you to visit the [facility] [employer] [facility] webpage. [email or web address]/[email or web address] [email or web address] learn more about the COVID-19 vaccine, we invite you to visit the CDC website for a list of frequently asked questions. https://www.cdc.gov/coronavirus/2019-ncov/vaccines/faq.html [email or web address] Patient Portal Access Instructions: Stay connected with your healthcare team and access your personal medical information anytime with the [employer] Patient Portal. If you would like a full copy of your medical records please contact the [facility] Medical Records Department Friday through Friday between 8a.m. and 4:30p.m. Please follow the directions below to access the portal: 1.Access the email account you provided upon registration to the [facility].2.Look for an invitation email from [facility].3.Open the email and access the invitation link: Accept Invitation to [facility]4.Fill in the required allen to create your account. Sign into [email or web address] with your username and password that you created in the above steps to stay up to date. You can then view a summary of results, a summary of your visits, and the ability to download your summaries to your computer or send the information securely to a physician. Remember that your healthcare information is confidential, so carefully consider who you will allow to register on the [employer] Patient Portal for access to your information. You can also access the [facility] Patient Portal on the [facility] [facility]. Simply click on Health Records under [email or web address] and then click on the [email or web address] logo. HOW TO SAFELY DISPOSE OF PRESCRIPTION MEDICATIONS Please use one of the following methods to safely dispose of your unused medications. 1.Use a drug disposal kit: the drug disposal pouch allows you to safely discard your old and unuseddrugs. Ask your nurse to give you one when you are discharged.2.Visit a local take-back location: Many local pharmacies and police departments have programs that collect old and unwanted prescriptiondrugs. Call your local pharmacy or go to http://MailLift.Photo Rankr/1G8Gb1i to find one close to you.3.Make use of household items: Use cat litter or old coffee grounds to dispose medications if other options arenot available. Mix your drugs with these household products, seal them in an airtight container andthrow it into the garbage. Call [facility]: [phone] to be sure your drugs can be disposed of in this way. Some medicines may require a different approach.4.Never flush your medications down the toilet. IF YOU HAVE BEEN PRESCRIBED AN OPIOIDS FOR PAIN If you have been prescribed an opioid (such as hydrocodone, oxycodone or morphine), it is critical to understand the possible side effects and risks of opioid pain medications. Even when taken as directed, opioids can have several side effects including: Tolerance, meaning you might need to take more of a medication for the same pain relief. Nausea, vomiting and/or constipation. Sleepiness, dizziness, dry mouth, confusion, depression or itching. Physical dependence, meaning you have withdrawal symptoms when a medication is stopped ? this can develop within a few days. KNOW YOUR RESPONSIBILITIES It is important to know exactly how much and how often to take the opioid pain medications you are prescribed. Never take opioids in higher amounts or more often than prescribed. Do not combine opioids with alcohol or other drugs that cause drowsiness, such as benzodiazepines, also known as benzos,including diazepam and alprazolam, muscle relaxants or sleep aids. Never sell or share prescriptionopioids. This is illegal. Store opioids in a secure place and out of reach of others (including children, family, friends and visitors). The last page(s) of this document has been signed and retained as a CHART COPY Signatures Patient Education Materials [employer] [place], Foot Medication Leaflets acetaminophen and hydrocodone My discharge plan and instructions have been reviewed and explained to me and I,BALJIT, YUSEF understand my current condition and have read and understand these discharge instructions. I have received a written copy of the plan/instructions. If I have questions, I am aware that I should contact my doctor. 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 fall swelling FINDINGS: Maintained ankle mortise and talar dome. Small ossific fragments at the medial malleolus, suspect acute. Likely small fragments of the medial talar process as well. Transverse fracture through the medial 3rd of the navicular bone with a few mm of widening. Widened Lisfranc interval (C1-M2) up to 5 mm. Mild soft tissue swelling about the ankle, worse medially. IMPRESSION: Transverse fracture through the navicular bone, mildly displaced, associated with small fragments dorsally. Widened Lisfranc interval, concerning for Lisfranc ligament tear. Probable small acute fragments off the medial malleolar tip and medial talus. I have personally reviewed the images of this examination and agree with the resident's findings and interpretation. Interpreted by: Mainor Bennett Preliminary Report By: La Rose Electronically signed By Mainor Bennett Dictated Date: 09/01/2024 9:12:32 AM Prelim Date: 09/01/2024 9:29:18 AM Sign Date: 09/01/2024 9:29:18 AM [facility]* Exam Date Time Procedure Performing Provider Status 05/18/24 7:59 AM US Abdomen/Abd Doppler ELADIA RUGGIERO; Auth (Verified) [id number] ORIGINAL COMPLETE ABDOMINAL ULTRASOUND05/18/2024 8:08 am Complete ultrasound abdomen and duplex abdominal Doppler TECHNIQUE: Grayscale imaging of the abdominal organs and color Doppler and spectral evaluation of the portal and hepatic venous system. This report is based on interpretation of permanently recorded ultrasound images. COMPARISON: 07/31/2023 HISTORY: ORDERING SYSTEM PROVIDED HISTORY: Reason for Exam: HEPATIC FIBROSIS, abnormal ultrasound and elastography FINDINGS: The gallbladder is less than optimally distended but otherwise unremarkable. Negative sonographic Diaz's sign.. There is no intrahepatic bile duct dilatation. The common duct is 4 mm at the dennis hepatis. The liver is coarsened with increased echogenicity. No focal lesion is seen and there is no significant nodularity of the visualized liver margins. The pancreas as visualized shows no focal lesion or mass, some portions are obscured by bowel gas artifacts. No ascites is seen. The spleen is prominent and plump probably borderline enlarged with maximum vertical dimension of 12.5 cm without any focal lesions. Limited survey images of the kidneys show normal size cortical thickness and echogenicity with no pelvocaliectasis.. The aorta and IVC as visualized are normal in caliber.. Doppler: The main portal vein is 16 mm in diameter which is dilated. It is patent with antegrade flow and no evidence of thrombosis. There are normal monophasic portal venous waveforms in this vessel. The right and left portal venous branches are also patent with normal flow direction and expected normal spectral waveforms. The splenic vein posterior to the pancreas is also patent with antegrade flow direction. All 3 hepatic veins are also patent with normal flow direction. IMPRESSION: Evidence of diffuse hepatocellular disease as previously. Borderline splenomegaly. Evidence of portal hypertension without portal vein thrombosis or flow reversal. Doppler: No evidence of portal or hepatic vein thrombosis or flow reversal. Interpreted by: Eladia Ruggiero MD Preliminary Report By: Eladia Ruggiero MD Electronically signed By Eladia Ruggiero MD Dictated Date: 05/18/2024 9:16:38 AM Prelim Date: 05/18/2024 9:20:25 AM Sign Date: 05/18/2024 9:20:25 AM Ordering Provider: KRIS SEGUNDO [facility]02-06-2025 Note* Exam Date Time Procedure Performing Provider Status 05/13/24 9:48 AM XR Spine Lumbar Ap/Lat COOPER KIMBROUGH DO; Auth (Verified) [id number] ORIGINAL EXAMINATION: 3 XRAY VIEWS OF THE LUMBAR SPINE 05/13/2024 9:49 am COMPARISON: None. HISTORY: ORDERING SYSTEM PROVIDED HISTORY: Reason for Exam: chronic back pain, rt knee buckling FINDINGS: 5 lumbar segments present in appropriate apposition and alignment. No acute fracture affects the lumbar spine. Disc spaces are preserved. There is mild facet arthropathy involving L3-4 through L5-S1. Sacroiliac joints are preserved. IMPRESSION: 1. Mild facet arthropathy lower lumbar spine. 2. No acute bony abnormality. Interpreted by: Cooper Kimbrough DO Preliminary Report By: Cooper Kimbrough DO Electronically signed By Cooper Kimbrough DO Dictated Date: 05/13/2024 11:08:06 AM Prelim Date: 05/13/2024 11:08:55 AM Sign Date: 05/13/2024 11:08:55 AM Ordering Provider: CARLEE MCGREGOR [facility]01-27-2025 Telephone encounter Note* Telephone Encounter - Destiny Ram RN - 05/03/2024 8:51 PM EST Reason for Call: Diabetes-Foot Problem Outcome: ER/or PCP Triage. Confer patient to [facility]. Reason for Disposition Patient sounds very sick or weak to the triager Answer Assessment - Initial Assessment Questions 1. SYMPTOM: left big toe is white 2. LOCATION: see above 3. APPEARANCE: white 4. ONSET: 2 days ago 5. PAIN: no pain 6. CAUSE: unknown 7. BLOOD GLUCOSE: 198 8. USUAL RANGE: 120-130 9. OTHER SYMPTOMS: bottom of feet are numb (not a new symptom) Protocols used: Diabetes - Foot Problems and Ohkxvxszd-XJELX-KQ [facility]01-27-2025 Miscellaneous Notes* Telephone Encounter - Destiny Ram RN - 05/03/2024 8:51 PM EST Reason for Call: Diabetes-Foot Problem Outcome: ER/or PCP Triage. Confer patient to [facility]. Reason for Disposition Patient sounds very sick or weak to the triager Answer Assessment - Initial Assessment Questions 1. SYMPTOM: left big toe is white 2. LOCATION: see above 3. APPEARANCE: white 4. ONSET: 2 days ago 5. PAIN: no pain 6. CAUSE: unknown 7. BLOOD GLUCOSE: 198 8. USUAL RANGE: 120-130 9. OTHER SYMPTOMS: bottom of feet are numb (not a new symptom) Protocols used: Diabetes - Foot Problems and Ocnqegftf-AWHJH-VS [facility] Telephone encounter Note * Telephone Encounter - Loree Pérez RN - 02/22/2024 11:42 PM EST Reason for Call: wound check Outcome: 24 hour recommendation, care advice given, Patient verbalized understanding. Patient encouraged to go to the express care in the morning. Reason for Disposition [1] Looks infected (e.g., spreading redness, pus) AND [2] no fever Answer Assessment - Initial Assessment Questions 1. LOCATION: Top, back, center of head 2. WOUND APPEARANCE: Bleeding (not currently) and oozing sticky stuff (same area where michel were 3-5 years ago) 3. SIZE: Unable to determine by looking, finger fits in the hole 4. SPREAD: Unable to determine 5. ONSET: One week ago 6. MECHANISM: Tree limb and michel 3-5 years ago, wound in same area now painful and was bleeding, now draining;gets worse every hair gets brushed; patient encouraged to stop brushing hair in the area of the wound 7. PAIN: Pain? Yes If pain, scale of 1-10 and/or behavior (grimace, crying, etc.) 6/10 Location of pain? head Description of pain? aching Duration of pain? Constant after brushing hair Pain relief methods/effectiveness? Flexeril, gabapentin, and aleve; reports they have helped a little bit 8. FEVER: No fever 9. OTHER SYMPTOMS: Denies 10. : Deferred Current blood sugar is 145 Protocols used: Wound Infection [id number] [facility]11-17-2024 Miscellaneous Notes* Telephone Encounter - Loree Pérez RN - 02/22/2024 11:42 PM EST Reason for Call: wound check Outcome: 24 hour recommendation, care advice given, Patient verbalized understanding. Patient encouraged to go to the [facility] care in the morning. Reason for Disposition [1] Looks infected (e.g., spreading redness, pus) AND [2] no fever Answer Assessment - Initial Assessment Questions 1. LOCATION: Top, back, center of head 2. WOUND APPEARANCE: Bleeding (not currently) and oozing sticky stuff (same area where michel were 3-5 years ago) 3. SIZE: Unable to determine by looking, finger fits in the hole 4. SPREAD: Unable to determine 5. ONSET: One week ago 6. MECHANISM: Tree limb and michel 3-5 years ago, wound in same area now painful and was bleeding, now draining;gets worse every hair gets brushed; patient encouraged to stop brushing hair in the area of the wound 7. PAIN: Pain? Yes If pain, scale of 1-10 and/or behavior (grimace, crying, etc.) 6/10 Location of pain? head Description of pain? aching Duration of pain? Constant after brushing hair Pain relief methods/effectiveness? Flexeril, gabapentin, and aleve; reports they have helped a little bit 8. FEVER: No fever 9. OTHER SYMPTOMS: Denies 10. : Deferred Current blood sugar is 145 Protocols used: Wound Infection [id number]-[id number]-CL documented [facility] Telephone encounter Note * Telephone Encounter - Rosi Ordonez RN - 12/24/2023 5:26 PM EDT Patient calling with Continuous Glucose Monitor not working correctly. Patient states his machine says 51 and his finger prick is 211. Patient denies any blood sugar symptoms Patient denies any new or worsening symptoms of which a provider is not aware:Yes OUTCOME: Patient educated to continue with the finger pokes for an accurate reading and to call hisprovider when the office opens. GO TO THE EMERGENCY ROOM OR CALL 911 IF: * You develop any new symptoms * Your condition worsens * You are concerned or anxious about your condition for any other reason. If you have any questions, you can call Nurse store person back. [facility]09-18-2024 Miscellaneous Notes* Telephone Encounter - Rosi Ordonez RN - 12/24/2023 5:26 PM EDT Patient calling with Continuous Glucose Monitor not working correctly. Patient states his machine says 51 and his finger prick is 211. Patient denies any blood sugar symptoms Patient denies any new or worsening symptoms of which a provider is not aware:Yes OUTCOME: Patient educated to continue with the finger pokes for an accurate reading and to call hisprovider when the office opens. GO TO THE EMERGENCY ROOM OR CALL 911 IF: * You develop any new symptoms * Your condition worsens * You are concerned or anxious about your condition for any other reason. If you have any questions, you can call Nurse store person back. [facility] Note ORIGINAL EXAMINATION: ONE XRAY VIEW OF THE CHEST10/28/2023 6:09 pm CHEST ONE VIEW AP/PA EXAM DESCRIPTION: COMPARISON: Chest, July 30, 2023 HISTORY: ORDERING SYSTEM PROVIDED HISTORY: Reason for Exam: pain/fever FINDINGS: Single AP radiograph of the chest was obtained. Interstitial opacities are identified within the left lower lobe. The lung volumes are decreased with crowding of the bronchovascular bruce. The lungs are clear without evidence of focal consolidation, mass, pleural effusion, or pneumothorax. The cardiomediastinal silhouette is unremarkable. The bones and soft tissues are unremarkable. IMPRESSION: Low lung volumes with hypoventilatory changes. All. Interpreted by: Christiane Juan MD Preliminary Report By: Christiane Juan MD Electronically signed By Christiane Juan MD Dictated Date: 10/28/2023 6:19:24 PM Prelim Date: 10/28/2023 6:20:11 PM Sign Date: 10/28/2023 6:20:11 PM Ordering Provider: [place] [id number] Note ORIGINAL EXAMINATION: CT OF THE HEAD WITHOUT CONTRAST 10/28/2023 6:09 pm TECHNIQUE: CT of the head was performed without the administration of intravenous contrast. Automated exposure control, iterative reconstruction, and/or weight based adjustment of the mA/kV was utilized to reduce the radiation dose to as low as reasonably achievable. COMPARISON: CT head 06/06/2023 HISTORY: ORDERING SYSTEM PROVIDED HISTORY: Reason for Exam: headache; altered LOC; suspect abscess FINDINGS: BRAIN/VENTRICLES: There is no acute intracranial hemorrhage, mass effect or midline shift. No abnormal extra-axial fluid collection. The burden-white differentiation is maintained without evidence of an acute infarct. There is no evidence of hydrocephalus. Scattered white matter hypodensities likely reflecting chronic microvascular angiopathy. Atherosclerosis of bilateral carotid siphons and vertebral arteries. ORBITS: The visualized portion of the orbits demonstrate no acute abnormality. SINUSES: Stable moderate opacification of the ethmoid air cells and left frontal sinus and polypoid mucosal thickening. Polypoid mucosal thickening in the nasal cavity. The visualized paranasal sinuses and mastoid air cells demonstrate no acute abnormality. SOFT TISSUES/SKULL: No acute abnormality of the visualized skull or soft tissues. IMPRESSION: No acute intracranial abnormality. I have personally reviewed the images of this examination and agree with the resident's findings and interpretation. Interpreted by: Sudhakar Jefferson Preliminary Report By: Jonathan Cotto Electronically signed By Sudhakar Jefferson Dictated Date: 10/28/2023 6:15:33 PM Prelim Date: 10/28/2023 6:20:09 PM Sign Date: 10/28/2023 6:25:12 PM Ordering Provider: [place] [id number] NoteSinus rhythm Probable left atrial enlargement Right bundle branch block Inferior infarct, old Anterior infarct, old Electronic Signature: KULDEEP BRADLEY MD 10/28/2023 17:32:30[facility] 07-22-2024 Hospital Discharge instructions Patient Education 10/27/2023 11:35:58 Plantar Fasciitis Plantar Fasciitis Plantar fasciitis is a painful swelling of the plantar fascia. The plantar fascia is a thick, fibrous layer of tissue that covers the bones on the bottom of your foot. It supports the foot bones in an arched position. Plantar fasciitis can happen gradually or suddenly. It usually affects one foot at a time. Heel pain can be sharp, like a knife sticking into the bottom of your foot. You may feel pain after exercising, long-distance jogging, stair climbing, long periods of standing, or after standing up. Risk factors include: non-active lifestyle, arthritis, diabetes, obesity or recent weight gain, flat foot, high arch. Wearing high heels, loose shoes, or shoes with poor arch support for long periodsof time adds to the risk. This problem is commonly found in runners and dancers. It also found in people who stand on hard surfaces for long periods of time. Foot pain from this condition is usually worse in the morning. But it often improves with walking. By the end of the day there may be a dull aching. Treatment requires short-term rest and controllingswelling. It may take up to 9 months before all symptoms go away. Rarely, a steroid injection into the foot, or surgery, may be needed. Home care If you are overweight, lose weight to help healing. Choose supportive shoes with good arch support and shock absorbency. Replace athletic shoes when they become worn out. Don t walk or run barefoot. Premade or custom-fitted shoe inserts may be helpful. Inserts made of silicone seem to be the most effective. Custom-made inserts can be provided by mobility specialist, physical therapist, or orthopedist. Premade or custom-made night splints keep the heel stretched out while you sleep. They may prevent morning pain. Limit activities that stress the feet: jogging, prolonged standing or walking, contact sports, etc. First thing in the morning and before sports, stretch the bottom of your feet. Gently flex your ankle so the toes move toward your knee. Icing may help control heel pain. Apply an ice pack to the heel for 10 to 20 minutes as a preventive. Or ice your heel after a severe flare-up of symptoms. You may repeat this every 1 to 2 hours as needed. You may use dabn-khg-pvijgsz pain medicine to control pain, unless another medicine was prescribed.Anti-inflammatory pain medicines, such as ibuprofen or naproxen, may work better than acetaminophen. If you have chronic liver or kidney disease or ever had a stomach ulcer or gastrointestinal bleeding, talk with your healthcare provider before using these medicines. Follow-up care Follow up with your healthcare provider, or as advised. Call for an appointment if pain worsens or there is no relief after a few weeks of home treatment. Shoe inserts, a night splint, or a special boot may be required. If X-rays were taken, you will be told of any new findings that may affect your care. When to seek medical advice Call your healthcare provider right away if any of these occur: Foot swelling Redness or warmth with increasing pain [phone] [employer] [place] [address]. All rights reserved. This information is not intended as a substitute for professional medical care. Always follow yourhealthcare professional's instructions. Follow Up Care 10/27/2023 10:01:33 With:KENYON GUTIERREZ Address: [facility] [place], [place] [address] [facility] [place] [address]- Business (1) When:1-2 days Comments:Return to ED if symptoms worsen With:CARLEE MCGREGOR APRN-J2EE CONSULTANT Address: [address] [facility] [place] [place] [address] [phone] When:2-4 days [facility] 07-22-2024 Note Discharge Instructions Thank you for allowing [facility] to assist you with your healthcare needs. The following is importantdischarge information regarding your hospital visit. Diagnosis from Today's Visit Plantar fasciitis What to Do Next Instructions from Your Care Team No qualifying data available. Post Acute Orders No qualifying data available. You Need to Schedule the Following Appointments Follow Up with KENYON GUTIERREZ When:Within 1-2 days Where:[address] [facility] [place] [address] [facility] (1) Additional Information: Return to ED if symptoms worsen Follow Up with CARLEE MCGREGOR When:Within 2-4 days Where:[address] [facility] [place] [place] [address]- [phone] Allergies aspirin bloody nose Medications Please ask your primary doctor or pharmacist before taking any other medication not listed, including over the counter drugs, herbal medications, vitamins and or supplements as they may interact withyour home medications. What How Much When Why Instructions Last Dose Unchanged albuterol (Albuterol (Eqv-Proventil HFA) 90mcg/ inh inhalation aerosol) Unchanged ammonium lactate topical (Kerasal AL 12% topical lotion) 1 application Topical Every day Unchanged cyclobenzaprine (cyclobenzaprine 10 mg oral tablet) 1 tab(s) by mouth Two (2) times a day as needed for for muscle spasm Duration: 30 Days Unchanged DME (Alcohol Swabs) See instructions 1 box Unchanged DME (Blood Glucose Test Machine) See instructions Device as determined by insurance coverage Unchanged DME (Blood Glucose Test Strips) See instructions Testing blood glucose TID. 1 bottle of 100 strips Unchanged DME (Lancets) See instructions Testing blood glucose TID.1 box Unchanged DME (Pen needles) See instructions Insulin administration 1 times daily qs for 1 month supply Unchanged empagliflozin (Jardiance 25 mg oral tablet) 1 tab(s) by mouth Once a day (in the morning) Unchanged folic acid (folic acid 1 mg oral tablet) 1 tab(s) by mouth Once a day Duration: 90 Days Unchanged furosemide (Lasix 20 mg oral tablet) 1 tab(s) by mouth Once a day Duration: 90 Days Unchanged gabapentin (gabapentin 600 mg oral tablet) 1 tab(s) by mouth Three (3) times a day Diabetic neuropathy Duration: 30 Days Unchanged glimepiride (glimepiride 2 mg oral tablet) 1 tab(s) by mouth Once a day Duration: 90 Days Unchanged insulin glargine (Lantus Solostar Pen 100 units/ mL 3 mL Pen) 28 unit(s) Subcutaneous Daily at bedtime Unchanged metoprolol (metoprolol succinate 25 mg oral TABLET extended release) 0.5 tab(s) by mouth Once a day Duration: 90 Days Do not crush or chew (controlled release) Unchanged Misc Medication (FREESTYLE MOLLY 3 READER EACH) Unchanged rOPINIRole (rOPINIRole 1 mg oral tablet) 1 tab(s) by mouth Once a day Unchanged sacubitril-valsartan (Entresto 24 mg-26 mg oral tablet) 1 tab(s) by mouth Two (2) times a day Unchanged simvastatin (simvastatin 10 mg oral tablet) 1 tab(s) by mouth Once a day (in the evening) Unchanged thiamine (thiamine 100 mg oral tablet) 1 tab(s) by mouth Once a day Duration: 90 Days Please take this list to your next doctor s visit. Bring all medications you take, including over the counter medications, herbals and other supplements with you to your doctor s visit. Patients and families are reminded to discard old lists and to update any records with all medication providers or retail pharmacies. Education Materials Plantar Fasciitis Plantar fasciitis is a painful swelling of the plantar fascia. The plantar fascia is a thick, fibrous layer of tissue that covers the bones on the bottom of your foot. It supports the foot bones in an arched position. Plantar fasciitis can happen gradually or suddenly. It usually affects one foot at a time. Heel pain can be sharp, like a knife sticking into the bottom of your foot. You may feel pain after exercising, long-distance jogging, stair climbing, long periods of standing, or after standing up. Risk factors include: non-active lifestyle, arthritis, diabetes, obesity or recent weight gain, flat foot, high arch. Wearing high heels, loose shoes, or shoes with poor arch support for long periodsof time adds to the risk. This problem is commonly found in runners and dancers. It also found in people who stand on hard surfaces for long periods of time. Foot pain from this condition is usually worse in the morning. But it often improves with walking. By the end of the day there may be a dull aching. Treatment requires short-term rest and controllingswelling. It may take up to 9 months before all symptoms go away. Rarely, a steroid injection into the foot, or surgery, may be needed. Home care If you are overweight, lose weight to help healing. Choose supportive shoes with good arch support and shock absorbency. Replace athletic shoes when they become worn out. Don t walk or run barefoot. Premade or custom-fitted shoe inserts may be helpful. Inserts made of silicone seem to be the most effective. Custom-made inserts can be provided by mobility specialist, physical therapist, or orthopedist. Premade or custom-made night splints keep the heel stretched out while you sleep. They may prevent morning pain. Limit activities that stress the feet: jogging, prolonged standing or walking, contact sports, etc. First thing in the morning and before sports, stretch the bottom of your feet. Gently flex your ankle so the toes move toward your knee. Icing may help control heel pain. Apply an ice pack to the heel for 10 to 20 minutes as a preventive. Or ice your heel after a severe flare-up of symptoms. You may repeat this every 1 to 2 hours as needed. You may use snqe-ypc-naqngob pain medicine to control pain, unless another medicine was prescribed.Anti-inflammatory pain medicines, such as ibuprofen or naproxen, may work better than acetaminophen. If you have chronic liver or kidney disease or ever had a stomach ulcer or gastrointestinal bleeding, talk with your healthcare provider before using these medicines. Follow-up care Follow up with your healthcare provider, or as advised. Call for an appointment if pain worsens or there is no relief after a few weeks of home treatment. Shoe inserts, a night splint, or a special boot may be required. If X-rays were taken, you will be told of any new findings that may affect your care. When to seek medical advice Call your healthcare provider right away if any of these occur: Foot swelling Redness or warmth with increasing pain [phone] The [employer] [address] [place] [address], [place] [address]. All rights reserved. This information is not intended as a substitute for professional medical care. Always follow yourhealthcare professional's instructions. Additional Information VACCINATE! IT SAVES LIVES! Members of the community who have not yet received the COVID-19 vaccine and would like to receive it can visit one of [facility] vaccine clinics. There are many vaccine clinic locations within the [facility]. For locations and available times, please visit www.[email or web address].[place].gov/. It is important to note that some COVID mobile vaccine clinics are held outdoors and may be canceled in rainy or stormy conditions. To learn more about pediatric vaccinations (ages 5-11), we invite you to visit the [facility] webpage. [email or web address]/pages/[email or web address]-[email or web address] stions.htmlTo learn more about the COVID-19 vaccine, we invite you to visit the CDC website for a list of frequently asked questions. https://www.cdc.gov/coronavirus/2019-ncov/vaccines/faq.html [employer] Patient Portal Access Instructions: Stay connected with your healthcare team and access your personal medical information anytime with the [employer] Patient Portal. If you would like a full copy of your medical records please contact the [facility] Medical Records Department Friday through Friday between 8a.m. and 4:30p.m. Please follow the directions below to access the portal: 1.Access the email account you provided upon registration to the [facility].2.Look for an invitation email from [facility].3.Open the email and access the invitation link: Accept Invitation to [employer] [facility]4.Fill in the required allen to create your account. Sign into [email or web address] with your username and password that you created in the above steps to stay up to date. You can then view a summary of results, a summary of your visits, and the ability to download your summaries to your computer or send the information securely to a physician. Remember that your healthcare information is confidential, so carefully consider who you will allow to register on the [employer] Patient Portal for access to your information. You can also access the [facility] Patient Portal on the [employer]. Simply click on Health Records under [email or web address] and then click on the [email or web address] logo. HOW TO SAFELY DISPOSE OF PRESCRIPTION MEDICATIONS Please use one of the following methods to safely dispose of your unused medications. 1.Use a drug disposal kit: the drug disposal pouch allows you to safely discard your old and unuseddrugs. Ask your nurse to give you one when you are discharged.2.Visit a local take-back location: Many local pharmacies and police departments have programs that collect old and unwanted prescriptiondrugs. Call your local pharmacy or go to http://MailLift.Photo Rankr/1K0Rv7e to find one close to you.3.Make use of household items: Use cat litter or old coffee grounds to dispose medications if other options arenot available. Mix your drugs with these household products, seal them in an airtight container andthrow it into the garbage. Call [facility]: [phone] to be sure your drugs can be disposed of in this way. Some medicines may require a different approach.4.Never flush your medications down the toilet. IF YOU HAVE BEEN PRESCRIBED AN OPIOIDS FOR PAIN If you have been prescribed an opioid (such as hydrocodone, oxycodone or morphine), it is critical to understand the possible side effects and risks of opioid pain medications. Even when taken as directed, opioids can have several side effects including: Tolerance, meaning you might need to take more of a medication for the same pain relief. Nausea, vomiting and/or constipation. Sleepiness, dizziness, dry mouth, confusion, depression or itching. Physical dependence, meaning you have withdrawal symptoms when a medication is stopped ? this can develop within a few days. KNOW YOUR RESPONSIBILITIES It is important to know exactly how much and how often to take the opioid pain medications you are prescribed. Never take opioids in higher amounts or more often than prescribed. Do not combine opioids with alcohol or other drugs that cause drowsiness, such as benzodiazepines, also known as benzos,including diazepam and alprazolam, muscle relaxants or sleep aids. Never sell or share prescriptionopioids. This is illegal. Store opioids in a secure place and out of reach of others (including children, family, friends and visitors). The last page(s) of this document has been signed and retained as a CHART COPY Signatures Patient Education Materials Plantar Fasciitis Medication Leaflets My discharge plan and instructions have been reviewed and explained to me and I,BALJIT HYATT AMATO understand my current condition and have read and understand these discharge instructions. I have received a written copy of the plan/instructions. If I have questions, I am aware that I should contactmy doctor. 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 HISTORY: ORDERING SYSTEM PROVIDED HISTORY: Reason for Exam: pain FINDINGS: No acute fracture or dislocation. Scattered degenerative changes of the fore and midfoot. Calcaneal enthesopathy. No radiopaque retained foreign body or appreciable soft tissue swelling. Vascular calcifications. IMPRESSION: No acute traumatic findings by radiograph. I have personally reviewed the images of this examination, agree with resident's findings and interpretation. Interpreted by: Christiane Forman DO Preliminary Report By: Raul Liu Electronically signed By Christiane Forman DO Dictated Date: 10/27/2023 11:17:09 AM Prelim Date: 10/27/2023 11:29:28 AM Sign Date: 10/27/2023 11:29:28 AM Ordering Provider: [facility]05-18-2024 Hospital Discharge instructions Patient Education 08/23/2023 19:37:47 Diabetes with High Blood Sugar Diabetes with High Blood Sugar You have been treated for high blood sugar (hyperglycemia). This may be because of an infection or other illness. Or it may be from eating too many sweets or starches. Or it may be from not taking enough insulin or other diabetes medicine. Home care Check your blood sugar level at least 2 times a day. Write it down the results. Do this before breakfast and before dinner. If you take insulin, also write down your routine insulin dose. Note any other doses you needed based on your sliding scale or as advised by your healthcare provider. Do this for the next 3 to 5 days. High blood sugar may cause symptoms that you can learn to spot. These include: Peeing often Thirst Headache Breath that smells fruity Nausea or vomiting Belly pain If you have symptoms of high blood sugar, use a blood or urine test to find out what your blood sugar level is. If it is above your usual range, use the sliding scale regular insulin dose from your healthcare provider. Call your provider for advice if you were not given a range for your insulin dose. If your blood sugar is over 240 mg/dL, check your urine for ketones. Follow-up care Follow up with your healthcare provider, or as advised. You may need to meet with your provider in the next week. You will likely look at your blood sugar records together. You may need to change your dose of insulin or other diabetes medicine. When to seek medical advice Call your healthcare provider right away if these occur: Symptoms of high blood sugar that don't get better with the treatment your provider advised. This is especially true if you also have ketones in your urine. Blood sugar over 300 mg/dl. If you can t reach your healthcare provider, go to a hospital emergencyroom or urgent care center. Call 911 Call 911 if you have any of the following: Confusion Dizziness, lightheadedness, or loss of consciousness Shortness of breath Chest pain Weakness of an arm, leg, or one side of the face Sudden trouble with speech or vision 6568-[address] [place] [address]. All rights reserved. This information is not intended as a substitute for professional medical care. Always follow yourhealthcare professional's instructions. Follow Up Care 08/23/2023 18:10:03 With:Call Physician Referral Address:Unknown When:2-4 days With:Go to emergency room if symptoms worsen Address:Unknown When:2-4 days With:GUADALUPE RUGGIERO MD Address: [address] [place] [phone] When:2-4 days [facility] 05-18-2024 Note Discharge Instructions Thank you for allowing [facility] to assist you with your healthcare needs. The following is importantdischarge information regarding your hospital visit. Diagnosis from Today's Visit Hyperglycemia What to Do Next Instructions from Your Care Team pleas take your folic acid and a daily multivitamin and use your insulin and check your blood glucose levels No qualifying data available. Post Acute Orders No qualifying data available. You Need to Schedule the Following Appointments Follow Up with Call Physician Referral When: When:Within 2-4 days Follow Up with Go to emergency room if symptoms worsen When: When:Within 2-4 days Follow Up with GUADALUPE RUGGIERO MD When: When:Within 2-4 days Where:[address] [place] [phone]- [phone] Allergies aspirin bloody nose Medications Please ask your primary doctor or pharmacist before taking any other medication not listed, including over the counter drugs, herbal medications, vitamins and or supplements as they may interact withyour home medications. What How Much When Instructions Last Dose Unchanged ammonium lactate topical (Kerasal AL 12% topical lotion) 1 application Topical Every day Unchanged cyclobenzaprine (cyclobenzaprine 10 mg oral tablet) 1 tab(s) by mouth Three (3) times a day as needed for for muscle spasm Duration: 5 Days Unchanged DME (Alcohol Swabs) See instructions 1 box Unchanged DME (Blood Glucose Test Machine) See instructions Device as determined by insurance coverage Unchanged DME (Blood Glucose Test Strips) See instructions Testing blood glucose TID. 1 bottle of 100 strips Unchanged DME (Lancets) See instructions Testing blood glucose TID.1 box Unchanged DME (Pen needles) See instructions Insulin administration 1 times daily qs for 1 month supply Unchanged empagliflozin (Jardiance 10 mg oral tablet) 1 tab(s) by mouth Once a day (in the morning) Unchanged folic acid (folic acid 1 mg oral tablet) 1 tab(s) by mouth Once a day Unchanged furosemide (Lasix 20 mg oral tablet) 1 tab(s) by mouth Once a day take 2 tab daily (40 mg) for 1 week then resume 1 tab (20 mg) daily Unchanged gabapentin (gabapentin 600 mg oral tablet) 1 tab(s) by mouth Three (3) times a day Unchanged glimepiride (glimepiride 2 mg oral tablet) 1 tab(s) by mouth Once a day Unchanged insulin glargine (Lantus Solostar Pen 100 units/ mL 3 mL Pen) 20 unit(s) Subcutaneous Daily at bedtime Unchanged metoprolol (metoprolol succinate 25 mg oral TABLET extended release) 0.5 tab(s) by mouth Once a day Do not crush or chew (controlled release) Unchanged potassium chloride (potassium chloride 20 mEq oral tablet, extended release) 1 tab(s) by mouth Once a day as needed for none Duration: 7 Days Unchanged rOPINIRole (rOPINIRole 1 mg oral tablet) 1 tab(s) by mouth Once a day Unchanged sacubitril-valsartan (Entresto 24 mg-26 mg oral tablet) 1 tab(s) by mouth Two (2) times a day Take 1 tablet twice a day through August 23, then start taking 1 1/ 2 tablet twice a day on August 24 Unchanged simvastatin (simvastatin 10 mg oral tablet) 1 tab(s) by mouth Once a day (in the evening) Unchanged spironolactone (Aldactone 25 mg oral tablet) 1 tab(s) by mouth Once a day with a meal Unchanged thiamine (thiamine 100 mg oral tablet) 1 tab(s) by mouth Once a day Duration: 30 Days Please take this list to your next doctor s visit. Bring all medications you take, including over the counter medications, herbals and other supplements with you to your doctor s visit. Patients and families are reminded to discard old lists and to update any records with all medication providers or retail pharmacies. Education Materials Diabetes with High Blood Sugar You have been treated for high blood sugar (hyperglycemia). This may be because of an infection or other illness. Or it may be from eating too many sweets or starches. Or it may be from not taking enough insulin or other diabetes medicine. Home care Check your blood sugar level at least 2 times a day. Write it down the results. Do this before breakfast and before dinner. If you take insulin, also write down your routine insulin dose. Note any other doses you needed based on your sliding scale or as advised by your healthcare provider. Do this for the next 3 to 5 days. High blood sugar may cause symptoms that you can learn to spot. These include: Peeing often Thirst Headache Breath that smells fruity Nausea or vomiting Belly pain If you have symptoms of high blood sugar, use a blood or urine test to find out what your blood sugar level is. If it is above your usual range, use the sliding scale regular insulin dose from your healthcare provider. Call your provider for advice if you were not given a range for your insulin dose. If your blood sugar is over 240 mg/dL, check your urine for ketones. Follow-up care Follow up with your healthcare provider, or as advised. You may need to meet with your provider in the next week. You will likely look at your blood sugar records together. You may need to change your dose of insulin or other diabetes medicine. When to seek medical advice Call your healthcare provider right away if these occur: Symptoms of high blood sugar that don't get better with the treatment your provider advised. This is especially true if you also have ketones in your urine. Blood sugar over 300 mg/dl. If you can t reach your healthcare provider, go to a hospital emergencyroom or urgent care center. Call 911 Call 911 if you have any of the following: Confusion Dizziness, lightheadedness, or loss of consciousness Shortness of breath Chest pain Weakness of an arm, leg, or one side of the face Sudden trouble with speech or vision [phone] [address]r. [address] [place] [address]. All rights reserved. This information is not intended as a substitute for professional medical care. Always follow yourhealthcare professional's instructions. Additional Information VACCINATE! IT SAVES LIVES! Members of the community who have not yet received the COVID-19 vaccine and would like to receive it can visit one of [facility] vaccine clinics. There are many vaccine clinic locations within the [facility]. For locations and available times, please visit www.[email or web address].[place].gov/. It is important to note that some COVID mobile vaccine clinics are held outdoors and may be canceled in rainy or stormy conditions. To learn more about pediatric vaccinations (ages 5-11), we invite you to visit the [facility] webpage. [email or web address] learn more about the COVID-19 vaccine, we invite you to visit the CDC website for a list of frequently asked questions. https://www.cdc.gov/coronavirus/2019-ncov/vaccines/faq.html [facility] [email or web address] Patient Portal Access Instructions: Stay connected with your healthcare team and access your personal medical information anytime with the [facility] Patient Portal. If you would like a full copy of your medical records please contact the [facility] Medical Records Department Friday through Friday between 8a.m. and 4:30p.m. Please follow the directions below to access the portal: 1.Access the email account you provided upon registration to the hospital.2.Look for an invitation email from [facility].3.Open the email and access the invitation link: Accept Invitation to [facility]4.Fill in the required allen to create your account. Sign into [email or web address] with your username and password that you created in the above steps to stay up to date. You can then view a summary of results, a summary of your visits, and the ability to download your summaries to your computer or send the information securely to a physician. Remember that your healthcare information is confidential, so carefully consider who you will allow to register on the [facility] [email or web address] Patient Portal for access to your information. You can also access the [employer] Patient Portal on the [facility]. Simply click on Health Records under [email or web address] and then click on the [facility] logo. HOW TO SAFELY DISPOSE OF PRESCRIPTION MEDICATIONS Please use one of the following methods to safely dispose of your unused medications. 1.Use a drug disposal kit: the drug disposal pouch allows you to safely discard your old and unuseddrugs. Ask your nurse to give you one when you are discharged.2.Visit a local take-back location: Many local pharmacies and police departments have programs that collect old and unwanted prescriptiondrugs. Call your local pharmacy or go to http://MailLift.Photo Rankr/2P8Fc7k to find one close to you.3.Make use of household items: Use cat litter or old coffee grounds to dispose medications if other options arenot available. Mix your drugs with these household products, seal them in an airtight container andthrow it into the garbage. Call [facility]: [phone] to be sure your drugs can be disposed of in this way. Some medicines may require a different approach.4.Never flush your medications down the toilet. IF YOU HAVE BEEN PRESCRIBED AN OPIOIDS FOR PAIN If you have been prescribed an opioid (such as hydrocodone, oxycodone or morphine), it is critical to understand the possible side effects and risks of opioid pain medications. Even when taken as directed, opioids can have several side effects including: Tolerance, meaning you might need to take more of a medication for the same pain relief. Nausea, vomiting and/or constipation. Sleepiness, dizziness, dry mouth, confusion, depression or itching. Physical dependence, meaning you have withdrawal symptoms when a medication is stopped ? this can develop within a few days. KNOW YOUR RESPONSIBILITIES It is important to know exactly how much and how often to take the opioid pain medications you are prescribed. Never take opioids in higher amounts or more often than prescribed. Do not combine opioids with alcohol or other drugs that cause drowsiness, such as benzodiazepines, also known as benzos,including diazepam and alprazolam, muscle relaxants or sleep aids. Never sell or share prescriptionopioids. This is illegal. Store opioids in a secure place and out of reach of others (including children, family, friends and visitors). The last page(s) of this document has been signed and retained as a CHART COPY Signatures Patient Education Materials Diabetes with High Blood Sugar Medication Leaflets My discharge plan and instructions have been reviewed and explained to me and I,BALJIT HYATT, YUSEF understand my current condition and have read and understand these discharge instructions. I have received a written copy of the plan/instructions. If I have questions, I am aware that I should contactmy doctor. 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 This document explains the things you need to do to take careof yourself after a heart failure diagnosis. You may be asked to change your diet, take certain medicines, and make other lifestyle changes in order to stay as healthy as possible. Your health care provider may also give you more specific instructions. If you have problems or questions, contact your health care provider. What are the risks? Having heart failure puts you at higher risk for certain problems. These problems can get worse if you do not take good care of yourself. Problems may include: Blood clotting problems. This may cause a stroke. Damage to the kidneys, liver, or lungs. Abnormal heart rhythms. Supplies needed: Scale for monitoring weight. Blood pressure monitor. Notebook. Medicines. How to care for yourself when you have heart failure Medicines Take hxkd-ebt-tchiblb and prescription medicines only as told by your health care provider. Medicines reduce the workload of your heart, slow the progression of heart failure, and improve symptoms. Take your medicines every day. Do not stop taking your medicine unless your health care provider tells you to do so. Do not skip any dose of medicine. Refill your prescriptions before you run out of medicine. Eating and drinking Eat heart-healthy foods. Talk with a dietitian to make an eating plan that is right for you. ?Choose foods that contain no trans fat and are low in saturated fat and cholesterol. Healthy choices include fresh or frozen fruits and vegetables, fish, lean meats, legumes, fat-free or low-fat dairy products, and whole-grain or high-fiber foods. ?Limit salt (sodium) if told by your health care provider. Sodium restriction may reduce symptoms of heart failure. Ask a dietitian to recommend heart-healthy seasonings. ?Use healthy cooking methods instead of frying. Healthy methods include roasting, grilling, broiling, baking, poaching, steaming, and stir-frying. Limit your fluid intake, if directed by your health care provider. Fluid restriction may reduce symptoms of heart failure. Alcohol use Do not drink alcohol if: ?Your health care provider tells you not to drink. ?Your heart was damaged by alcohol, or you have severe heart failure. ?You are , may be , or are planning to become . If you drink alcohol: ?Limit how much you use to: ?0 1 drink a day for women. ?0 2 drinks a day for men. ?Be aware of how much alcohol is in your drink. In the [place] one drink equals one 12 oz bottle of beer (355 mL), one 5 oz glass of wine (148 mL), or one 1 oz glass of hard liquor (44 mL). Lifestyle Do not use any products that contain nicotine or tobacco, such as cigarettes, e- cigarettes, and chewing tobacco. If you need help quitting, ask your health care provider. ?Do not use nicotine gum or patches before talking to your health care provider. Do not use illegal drugs. Work with your health care provider to safely reach the right body weight. Do physical activity if told by your health care provider. Talk to your health care provider beforeyou begin an exercise if: ?You are an older adult. ?You have severe heart failure. Learn to manage stress. If you need help to do this, ask your health care provider. Participate in or seek rehabilitation as needed to keep or improve your independence and quality oflife. Plan rest periods when you get tired. Monitoring important information Weigh yourself every day. This will help you to notice if too much fluid is building up in your body. ?Weigh yourself every morning after you urinate and before you eat breakfast. ?Wear the same amount of clothing each time you weigh yourself. ?Record your daily weight. Provide your health care provider with your weight record. Monitor and record your pulse and blood pressure as told by your health care provider. Dealing with extreme temperatures If the weather is extremely hot: ?Avoid vigorous physical activity. ?Use air conditioning or fans, or find a cooler location. ?Avoid caffeine and alcohol. ?Wear loose-fitting, lightweight, and light-colored clothing. If the weather is extremely cold: ?Avoid vigorous activity. ?Layer your clothes. ?Wear mittens or gloves, a hat, and a scarf when you go outside. ?Avoid alcohol. Follow these instructions at home: Stay up to date with vaccines. Pneumococcal and flu (influenza) vaccines are especially important in preventing infections of the airways. Keep all follow-up visits as told by your health care provider. This is important. Contact a health care provider if you: Have a rapid weight gain. Have increasing shortness of breath. Are unable to participate in your usual physical activities. Get tired easily. Cough more than normal, especially with physical activity. Lose your appetite or feel nauseous. Have any swelling or more swelling in areas such as your hands, feet, ankles, or abdomen. Are unable to sleep because it is hard to breathe. Feel like your heart is beating quickly (palpitations). Become dizzy or light-headed when you stand up. Get help right away if you: Have trouble breathing. Notice or your family notices a change in your awareness, such as having trouble staying awake or concentrating. Have pain or discomfort in your chest. Have an episode of fainting (syncope). These symptoms may represent a serious problem that is an emergency. Do not wait to see if the symptoms will go away. Get medical help right away. Call your local emergency services (911 in the [place] Do not drive yourself to the hospital. Summary Heart failure is a serious condition. To care for yourself, you may be asked to change your diet, take certain medicines, and make other lifestyle changes. Take your medicines every day. Do not stop taking them unless your health care provider tells you to do so. Eat heart-healthy foods, such as fresh or frozen fruits and vegetables, fish, lean meats, legumes, fat-free or low-fat dairy products, and whole-grain or high-fiber foods. Ask your health care provider if you have any alcohol restrictions. You may have to stop drinking alcohol if you have severe heart failure. Contact your health care provider if you notice problems, such as rapid weight gain or a fast heartbeat. Get help right away if you faint, or have chest pain or trouble breathing. This information is not intended to replace advice given to you by your health care provider. Make sure you discuss any questions you have with your health care provider. Document Released: 07/07/2019 Document Revised: 07/06/2019 Document Reviewed: 07/07/2019 [employer] Patient Education 2020 [employer] 08/01/2023 12:38:21 Cirrhosis Cirrhosis Cirrhosis is long-term (chronic) liver injury. The liver is the body's largest internal organ, and it performs many functions. It converts food into energy, removes toxic material from the blood, makes important proteins, and absorbs necessary vitamins from food. In cirrhosis, healthy liver cells are replaced by scar tissue. This prevents blood from flowing through the liver, making it difficult for the liver to function. Scarring of the liver cannot be reversed, but treatment can prevent it from getting worse. What are the causes? Common causes of this condition are hepatitis C and long-term alcohol abuse. Other causes include: Nonalcoholic fatty liver disease. This happens when fat is deposited in the liver by causes other than alcohol. Hepatitis B infection. Autoimmune hepatitis. In this condition, the body's defense system (immune system) mistakenly attacks the liver cells, causing irritation and swelling (inflammation). Diseases that cause blockage of ducts inside the liver. Inherited liver diseases, such as hemochromatosis. This is one of the most common inherited liver diseases. In this disease, deposits of iron collect in the liver and other organs. Reactions to certain long-term medicines, such as amiodarone, a heart medicine. Parasitic infections. These include schistosomiasis, which is caused by a flatworm. Long-term contact to certain toxins. These toxins include certain organic solvents, such as tolueneand chloroform. What increases the risk? You are more likely to develop this condition if: You have certain types of viral hepatitis. You abuse alcohol, especially if you are female. You are overweight. You share needles. You have unprotected sex with someone who has viral hepatitis. What are the signs or symptoms? You may not have any signs and symptoms at first. Symptoms may not develop until the damage to yourliver starts to get worse. Early symptoms may include: Weakness and tiredness (fatigue). Changes in sleep patterns or having trouble sleeping. Itchiness. Tenderness in the right-upper part of your abdomen. Weight loss and muscle loss. Nausea. Loss of appetite. Appearance of tiny blood vessels under the skin. Later symptoms may include: Fatigue or weakness that is getting worse. Yellow skin and eyes (jaundice). Buildup of fluid in the abdomen (ascites). You may notice that your clothes are tight around your waist. Weight gain. Swelling of the feet and ankles (edema). Trouble breathing. Easy bruising and bleeding. Vomiting blood. Black or bloody stool. Mental confusion. How is this diagnosed? Your health care provider may suspect cirrhosis based on your symptoms and medical history, especially if you have other medical conditions or a history of alcohol abuse. Your health care provider will do a physical exam to feel your liver and to check for signs of cirrhosis. He or she may perform other tests, including: Blood tests to check: ?For hepatitis B or C. ?Kidney function. ?Liver function. Imaging tests such as: ?MRI or CT scan to look for changes seen in advanced cirrhosis. ?Ultrasound to see if normal liver tissue is being replaced by scar tissue. A procedure in which a long needle is used to take a sample of liver tissue to be checked in a lab (biopsy). Liver biopsy can confirm the diagnosis of cirrhosis. How is this treated? Treatment for this condition depends on how damaged your liver is and what caused the damage. It may include treating the symptoms of cirrhosis, or treating the underlying causes in order to slow thedamage. Treatment may include: Making lifestyle changes, such as: ?Eating a healthy diet. You may need to work with your health care provider or a diet and nutritionspecialist (dietitian) to develop an eating plan. ?Restricting salt intake. ?Maintaining a healthy weight. ?Not abusing drugs or alcohol. Taking medicines to: ?Treat liver infections or other infections. ?Control itching. ?Reduce fluid buildup. ?Reduce certain blood toxins. ?Reduce risk of bleeding from enlarged blood vessels in the stomach or esophagus (varices). Liver transplant. In this procedure, a liver from a donor is used to replace your diseased liver. This is done if cirrhosis has caused liver failure. Other treatments and procedures may be done depending on the problems that you get from cirrhosis. Common problems include liver-related kidney failure (hepatorenal syndrome). Follow these instructions at home: Take medicines only as told by your health care provider. Do not use medicines that are toxic to your liver. Ask your health care provider before taking any new medicines, including wgyk-lre-xuweyde medicines. Rest as needed. Eat a well-balanced diet. Ask your health care provider or dietitian for more information. Limit your salt or water intake, if your health care provider asks you to do this. Do not drink alcohol. This is especially important if you are taking acetaminophen. Keep all follow-up visits as told by your health care provider. This is important. Contact a health care provider if you: Have fatigue or weakness that is getting worse. Develop swelling of the hands, feet, legs, or face. Have a fever. Develop loss of appetite. Have nausea or vomiting. Develop jaundice. Develop easy bruising or bleeding. Get help right away if you: Vomit bright red blood or a material that looks like coffee grounds. Have blood in your stools. Notice that your stools appear black and tarry. Become confused. Have chest pain or trouble breathing. Summary Cirrhosis is chronic liver injury. Liver damage cannot be reversed. Common causes are hepatitis C and long-term alcohol abuse. Tests used to diagnose cirrhosis include blood tests, imaging tests, and liver biopsy. Treatment for this condition involves treating the underlying cause. Avoid alcohol, drugs, salt, and medicines that may damage your liver. Contact your health care provider if you develop ascites, edema, jaundice, fever, nausea or vomiting, easy bruising or bleeding, or worsening fatigue. This information is not intended to replace advice given to you by your health care provider. Make sure you discuss any questions you have with your health care provider. Document Released: 03/24/2006 Document Revised: 07/14/2019 Document Reviewed: 02/11/2018 [employer] Patient Education 2020 ETC Education. Follow Up Care 07/30/2023 10:52:58 With:HUSAM CALLES APRN-[facility] Address: [address] [place] [address]- When:08/11/2023 11:30:00 Comments:This is your post-hospital cardiology follow-up appointment. With:KENYON GUTIERREZ [facility], Surgery Address: [address] [facility] [address] [facility] [place] [address]- When: Unknown Comments:Please call to schedule your post-hospital follow-up appointment for your feet. With:FAHAD LEDESMA Address: [address] [place] [address]- When:5 to 7 days Comments:Call office to schedule an appointment for new diagnosis of liver cirrhosis. With:FE BOURGEOIS DO Address: [address] [address] [place], [place] [phone] When:5 to 7 days Comments:Call for appointment regarding uvula sticking to your tongue and discussion of Inspire procedure for sleep apnea. With:GUADALUPE RUGGIERO MD Address: [address] [place] [phone] When:3-5 days Comments:Please call to schedule your post-hospital follow-up appointment. [facility] 04-26-2024 Note Discharge Instructions Thank you for allowing [facility] to assist you with your healthcare needs. The following is importantdischarge information regarding your hospital visit. Your Care Team GUADALUPE RUGGIERO MD, RACHEL APRN-CNP Your Diagnosis Alcohol dependence CHF exacerbation Diabetes mellitus type 2 HTN (hypertension) Liver cirrhosis, alcoholic Multiple wounds of skin JOHN (obstructive sleep apnea) Weakness What to do next Instructions From Your Doctor You were admitted for fluid overload. You have a history of heart failure however there was a concern for cirrhosis as well given your symptoms and history of alcohol use. You had imaging of your liver which indicates moderate to severe risk of clinically significant liver fibrosis (cirrhosis). Youwould benefit from following up with a liver specialist. Please plan to discuss this with your PCP.I would recommend abstaining from alcohol use. You are fluid overloaded and treated with IV Lasix. Spironolactone was increased to 25 mg daily. You will need to have labs done within 1 week to monitor your kidney function and potassium level. These results will be faxed to your PCP and cardiology team. You indicated that you are unable to tolerate using your CPAP. He also indicated that you have difficulty with your uvula getting stuck to your tongue. You would benefit from following up with an ear, nose, throat physician. The name of a physician was listed on your discharge paperwork if you choose to follow-up. Scheduled Follow-Up Appointments Appointment Type When With Where [facility] 08/11/2023 11:30 AM EDT HUSAM CALLES [facility] Follow Up Appointments Follow Up with HUSAM CALLES When 08/11/2023 11:30 AM EDT Why: This is your post-hospital cardiology follow-up appointment. Where[facility] [address] [place] [address]- Follow Up with KENYON GUTIERREZ DPKassi, Surgery When Why: Please call to schedule your post-hospital follow-up appointment for your feet. Where: [address], [address] [facility] [place] [address]- Follow Up with FAHAD LEDESMA When Within 5 to 7 days Why: Call office to schedule an appointment for new diagnosis of liver cirrhosis. Where: [address] [place] [address]- Follow Up with FE BOURGEOIS DO When Within 5 to 7 days Why: Call for appointment regarding uvula sticking to your tongue and discussion of Inspire procedure for sleep apnea. Where: [address] [place] [phone] Follow Up with GUADALUPE RUGGIERO MD When Within 3-5 days Why: Please call to schedule your post-hospital follow-up appointment. Where: [address] [place] [phone] The Following Activity and Diet Have Been Ordered for You Discharge Activity - Ordered -- Resume your pre-hospitalization activity, 08/01/23 10:49:00 EDT Discharge Diet - Ordered -- No changes were made to your diet during your hospital stay. Please resume your pre hospitalization diet on discharge., 08/01/23 10:49:00 EDT The Following Treatments Have Been Ordered for You Discharge Labs Discharge Outpatient Labwork - Ordered -- BMP, CHF, Increased diuretic, Results Notify to: GUADALUPE RUGGIERO MD Results Notify to: Forward to Husam Abdiel, 08/01/23 10:49:00 EDT Discharge Radiology No qualifying data available. Other Therapies No qualifying data available. Post Acute Orders No qualifying data available. Allergies aspirin (bloody nose) Medications Please ask your primary doctor or pharmacist before taking any other medication not listed, including over the counter drugs, herbal medications, vitamins and or supplements as they may interact withyour home medications. What How Much When Instructions Last Dose Changed spironolactone (Aldactone 25 mg oral tablet) 1 tab(s) by mouth Once a day with a meal Pickup at [facility]/pharmacy #[id number] TODAY Unchanged ammonium lactate topical (Kerasal AL 12% topical lotion) 1 application Topical Every day TODAY Unchanged DME (Alcohol Swabs) See instructions 1 box ------ Unchanged DME (Blood Glucose Test Machine) See instructions Device as determined by insurance coverage ------- Unchanged DME (Blood Glucose Test Strips) See instructions Testing blood glucose TID. 1 bottle of 100 strips ------- Unchanged DME (Lancets) See instructions Testing blood glucose TID.1 box ------ Unchanged DME (Pen needles) See instructions Insulin administration 1 times daily qs for 1 month supply ------ Unchanged empagliflozin (Jardiance 10 mg oral tablet) 1 tab(s) by mouth Once a day (in the morning) TODAY Unchanged folic acid (folic acid 1 mg oral tablet) 1 tab(s) by mouth Once a day TODAY Unchanged furosemide (Lasix 20 mg oral tablet) 1 tab(s) by mouth Once a day take 2 tab daily (40 mg) for 1 week then resume 1 tab (20 mg) daily TODAY Unchanged gabapentin (gabapentin 600 mg oral tablet) 1 tab(s) by mouth Three (3) times a day 9AM TODAY Unchanged glimepiride (glimepiride 2 mg oral tablet) 1 tab(s) by mouth Once a day TODAY Unchanged insulin glargine (Lantus Solostar Pen 100 units/ mL 3 mL Pen) 20 unit(s) Subcutaneous Daily at bedtime TODAY Unchanged metoprolol (metoprolol succinate 25 mg oral TABLET extended release) 0.5 tab(s) by mouth Once a day Do not crush or chew (controlled release) TODAY Unchanged potassium chloride (potassium chloride 20 mEq oral tablet, extended release) 1 tab(s) by mouth Once a day as needed for none Duration: 7 Days DID NOT TAKE Unchanged rOPINIRole (rOPINIRole 1 mg oral tablet) 1 tab(s) by mouth Once a day DID NOT TAKE Unchanged sacubitril-valsartan (Entresto 24 mg-26 mg oral tablet) 1 tab(s) by mouth Two (2) times a day DID NOT TAKE Unchanged simvastatin (simvastatin 10 mg oral tablet) 1 tab(s) by mouth Once a day (in the evening) LAST NIGHT Unchanged thiamine (thiamine 100 mg oral tablet) 1 tab(s) by mouth Once a day Duration: 30 Days TODAY Pharmacy Information [facility]/pharmacy #[id number]: [address], [place] [phone] Please take this list to your next doctor s visit. Bring all medications you take, including over the counter medications, herbals and other supplements with you to your doctor s visit. Patients and families are reminded to discard old lists and to update any records with all medication providers or retail pharmacies. Medication Leaflets spironolactone (spir ON [place] tone) Aldactone, CaroSpir What is the most important information I should know about spironolactone? You should not use spironolactone if you Tulio's disease, high levels of potassium in your blood,if you are unable to urinate, or if you are also taking eplerenone. What is spironolactone? Spironolactone is a potassium-sparing diuretic (water pill) that prevents your body from absorbing too much salt and keeps your potassium levels from getting too low. Spironolactone is used to treat heart failure, high blood pressure (hypertension), or hypokalemia (low potassium levels in the blood). Spironolactone also treats fluid retention (edema) in people with congestive heart failure, cirrhosis of the liver, or a kidney disorder called nephrotic syndrome. Spironolactone is also used to diagnose or treat a condition in which you have too much aldosteronein your body. Aldosterone is a hormone produced by your adrenal glands to help regulate the salt and water balance in your body. Spironolactone may also be used for purposes not listed in this medication guide. What should I discuss with my healthcare provider before taking spironolactone? You should not use spironolactone if you are allergic to it, or if you have: Glacier's disease (an adrenal gland disorder); high levels of potassium in your blood (hyperkalemia); if you are unable to urinate; or if you are also taking eplerenone. Tell your doctor if you have ever had: an electrolyte imbalance (such as low levels of calcium, magnesium, or sodium in your blood); kidney disease; liver disease; or heart disease. Tell your doctor if you are or plan to become . Having congestive heart failure, cirrhosis, or uncontrolled high blood pressure during may lead to medical problems in the mother or the baby. Your doctor should decide whether you take spironolactone if you are . It may not be safe to breastfeed while using this medicine. Ask your doctor about any risk. How should I take spironolactone? Follow all directions on your prescription label and read all medication guides or instruction sheets. Your doctor may occasionally change your dose. Use the medicine exactly as directed. Do not share this medicine with another person, even if they have the same symptoms you have. You may take spironolactone with or without food, but take it the same way each time. You will need frequent medical tests. This medicine can affect the results of certain medical tests. Tell any doctor who treats you that you are using spironolactone. If you need surgery, tell your surgeon you currently use this medicine. You may need to stop for a short time. If you are being treated for high blood pressure, keep using this medication even if you feel well.High blood pressure often has no symptoms. You may need to use blood pressure medication for the rest of your life. Store at room temperature away from heat, light, and moisture. What happens if I miss a dose? Take the medicine as soon as you can, but skip the missed dose if it is almost time for your next dose. Do not take two doses at one time. What happens if I overdose? Seek emergency medical attention or call the Poison Help line at . What should I avoid while taking spironolactone? Drinking alcohol can increase certain side effects. Do not use potassium supplements or salt substitutes, unless your doctor has told you to. Avoid a diet high in salt. Too much salt will cause your body to retain water and can make this medication less effective. Avoid driving or hazardous activity until you know how this medicine will affect you. Your reactions could be impaired. Avoid getting up too fast from a sitting or lying position, or you may feel dizzy. What are the possible side effects of spironolactone? Get emergency medical help if you have signs of an allergic reaction: hives; difficulty breathing; swelling of your face, lips, tongue, or throat. Call your doctor at once if you have: a light-headed feeling, like you might pass out; little or no urination; high potassium level--nausea, weakness, tingly feeling, chest pain, irregular heartbeats, loss of movement; o signs of other electrolyte imbalances--increased thirst or urination, confusion, vomiting, muscle pain, slurred speech, severe weakness, numbness, loss of coordination, feeling unsteady. Common side effects may include: breast swelling or tenderness. This is not a complete list of side effects and others may occur. Call your doctor for medical advice about side effects. You may report side effects to FDA at 1-559-TND-3384. What other drugs will affect spironolactone? Using spironolactone with other drugs that make you dizzy can worsen this effect. Ask your doctor before using opioid medication, a sleeping pill, a muscle relaxer, or medicine for anxiety, depression, or seizures. Tell your doctor about all your other medicines, especially: colchicine; digoxin; lithium; loperamide; trimethoprim; heart or blood pressure medicine (especially another diuretic); medicine to prevent a blood clot; or NSAIDs (nonsteroidal anti-inflammatory drugs)--aspirin, ibuprofen (Advil, Motrin), naproxen (Aleve), celecoxib, diclofenac, indomethacin, meloxicam, and others. This list is not complete. Other drugs may affect spironolactone, including prescription and njsd-kik-ucwpymu medicines, vitamins, and herbal products. Not all possible drug interactions are listed here. Where can I get more information? Your pharmacist can provide more information about spironolactone. Remember, keep this and all other medicines out of the reach of children, never share your medicines with others, and use this medication only for the indication prescribed. Every effort has been made to ensure that the information provided by [employer]. ('[employer]') is accurate, up-to-date, and complete, but no guarantee is made to that effect. Drug information contained herein may be time sensitive. [employer] information has been compiled for use by healthcare practitioners and consumers in the [place] and therefore [employer] does not warrant that uses outside of the [place] are appropriate, unless specifically indicated otherwise. [employer] drug information does not endorse drugs, diagnose patients or recommend therapy. [employer] drug information isan informational resource designed to assist licensed healthcare practitioners in caring for their p atients and/or to serve consumers viewing this service as a supplement to, and not a substitute for, the expertise, skill, knowledge and judgment of healthcare practitioners. The absence of a warningfor a given drug or drug combination in no way should be construed to indicate that the drug or drug combination is safe, effective or appropriate for any given patient. [employer] does not assume any responsibility for any aspect of healthcare administered with the aid of information [employer] provides. The information contained herein is not intended to cover all possible uses, directions, precautions, warnings, drug interactions, allergic reactions, or adverse effects. If you have questions about the drugs you are taking, check with your doctor, nurse or pharmacist. Copyright 1998-0887 [employer]. Version: 02.05. Revision Date: 06/19/2019. ammonium lactate topical (a ALY tom wilmar CHALINO lynn) Amlactin, AmLactin Cerapeutic, AmLactin Foot Cream Therapy, Amlactin Ultra, Chiqui-Hydrolac, Kerasal AL, Lac-Hydrin 5 What is the most important information I should know about ammonium lactate? Follow all directions on your medicine label and package. Tell each of your healthcare providers about all your medical conditions, allergies, and all medicines you use. What is ammonium lactate? Ammonium lactate is a combination of lactic acid and ammonium hydroxide. Ammonium lactate is a moisturizer. Ammonium lactate is used to treat dry, scaly, itchy skin. Ammonium lactate may also be used for purposes not listed in this medication guide. What should I discuss with my healthcare provider before using ammonium lactate topical? You should not use this medication if you are allergic to ammonium lactate, glycerin, mineral oil, propylene glycol, or parabens. Ammonium lactate may be more likely to cause skin irritation in people who have fair or sensitive skin. FDA category C. It is not known whether ammonium lactate topical will harm an unborn baby. Tell your doctor if you are or plan to become while using this medication. It is not known whether ammonium lactate topical passes into breast milk or if it could harm a nursing baby. Tell your doctor if you are breast-feeding a baby. Do not give this medicine to a child without medical advice. How should I apply ammonium lactate? Ammonium lactate is usually applied twice a day. Use exactly as directed on the label, or as prescribed by your doctor. Do not use in larger or smaller amounts or for longer than recommended. Shake the lotion form of this medication well just before using it. Wash your hands before and after applying this medication, unless you are using it to treat a hand condition. Do not apply ammonium lactate to your face unless your doctor has told you to. Call your doctor if your symptoms do not improve, or if they get worse while using ammonium lactatetopical. Store at room temperature away from moisture and heat. What happens if I miss a dose? Apply the missed dose as soon as you remember. If it is almost time for your next dose, wait until then to use the medicine and skip the missed dose. Do not use extra medicine to make up the missed dose. What happens if I overdose? An overdose is unlikely to occur with the use of ammonium lactate topical. What should I avoid while using ammonium lactate? Do not take by mouth. Ammonium lactate topical is for use only on the skin. Do not use this medicine on open wounds or on sunburned, windburned, dry, chapped, or irritated skin. If this medication gets in your eyes, nose, mouth, rectum, or vagina, rinse with water. What are the possible side effects of ammonium lactate? Get emergency medical help if you have any of these signs of an allergic reaction: hives; difficultbreathing; swelling of your face, lips, tongue, or throat. Stop using ammonium lactate topical and call your doctor at once if you have: severe redness or stinging where the medicine was applied. Common side effects may include: mild dryness or skin irritation after use; or bruising of discoloration of treated skin. This is not a complete list of side effects and others may occur. Call your doctor for medical advice about side effects. You may report side effects to FDA at 8-261-DXQ-[phone]. What other drugs will affect ammonium lactate? It is not likely that other drugs you take orally or inject will have an effect on topically applied ammonium lactate. But many drugs can interact with each other. Tell each of your health care providers about all medicines you use, including prescription and nmgu-csa-ygbmejy medicines, vitamins, and herbal products. Where can I get more information? Your pharmacist can provide more information about ammonium lactate topical. Remember, keep this and all other medicines out of the reach of children, never share your medicines with others, and use this medication only for the indication prescribed. Every effort has been made to ensure that the information provided by [employer] ('[employer]') is accurate, up-to-date, and complete, but no guarantee is made to that effect. Drug information contained herein may be time sensitive. [employer] information has been compiled for use by healthcare practitioners and consumers in the [place] and therefore [employer] does not warrant that uses outside of the [place] are appropriate, unless specifically indicated otherwise. [employer] drug information does not endorse drugs, diagnose patients or recommend therapy. [employer] drug information isan informational resource designed to assist licensed healthcare practitioners in caring for their p atients and/or to serve consumers viewing this service as a supplement to, and not a substitute for, the expertise, skill, knowledge and judgment of healthcare practitioners. The absence of a warningfor a given drug or drug combination in no way should be construed to indicate that the drug or drug combination is safe, effective or appropriate for any given patient. [facility] does not assume any responsibility for any aspect of healthcare administered with the aid of information [facility] provides. The information contained herein is not intended to cover all possible uses, directions, precautions, warnings, drug interactions, allergic reactions, or adverse effects. If you have questions about the drugs you are taking, check with your doctor, nurse or pharmacist. Copyright 2976-8857 [facility]. Version: 9.01. Revision Date: 11/20/2022. Education Materials Heart Failure, Self Care Heart failure is a serious condition. This document explains the things you need to do to take careof yourself after a heart failure diagnosis. You may be asked to change your diet, take certain medicines, and make other lifestyle changes in order to stay as healthy as possible. Your health care provider may also give you more specific instructions. If you have problems or questions, contact your health care provider. What are the risks? Having heart failure puts you at higher risk for certain problems. These problems can get worse if you do not take good care of yourself. Problems may include: Blood clotting problems. This may cause a stroke. Damage to the kidneys, liver, or lungs. Abnormal heart rhythms. Supplies needed: Scale for monitoring weight. Blood pressure monitor. Notebook. Medicines. How to care for yourself when you have heart failure Medicines Take inpe-duu-psclobe and prescription medicines only as told by your health care provider. Medicines reduce the workload of your heart, slow the progression of heart failure, and improve symptoms. Take your medicines every day. Do not stop taking your medicine unless your health care provider tells you to do so. Do not skip any dose of medicine. Refill your prescriptions before you run out of medicine. Eating and drinking Eat heart-healthy foods. Talk with a dietitian to make an eating plan that is right for you. ? Choose foods that contain no trans fat and are low in saturated fat and cholesterol. Healthy choices include fresh or frozen fruits and vegetables, fish, lean meats, legumes, fat-free or low-fat dairy products, and whole-grain or high-fiber foods. ? Limit salt (sodium) if told by your health care provider. Sodium restriction may reduce symptoms ofheart failure. Ask a dietitian to recommend heart-healthy seasonings. ? Use healthy cooking methods instead of frying. Healthy methods include roasting, grilling, broiling, baking, poaching, steaming, and stir-frying. Limit your fluid intake, if directed by your health care provider. Fluid restriction may reduce symptoms of heart failure. Alcohol use Do not drink alcohol if: ? Your health care provider tells you not to drink. ? Your heart was damaged by alcohol, or you have severe heart failure. ? You are , may be , or are planning to become . If you drink alcohol: ? Limit how much you use to: ? 0 1 drink a day for women. ? 0 2 drinks a day for men. ? Be aware of how much alcohol is in your drink. In the [place] one drink equals one 12 oz bottle of beer (355 mL), one 5 oz glass of wine (148 mL), or one 1 oz glass of hard liquor (44 mL). Lifestyle Do not use any products that contain nicotine or tobacco, such as cigarettes, e- cigarettes, and chewing tobacco. If you need help quitting, ask your health care provider. ? Do not use nicotine gum or patches before talking to your health care provider. Do not use illegal drugs. Work with your health care provider to safely reach the right body weight. Do physical activity if told by your health care provider. Talk to your health care provider beforeyou begin an exercise if: ? You are an older adult. ? You have severe heart failure. Learn to manage stress. If you need help to do this, ask your health care provider. Participate in or seek rehabilitation as needed to keep or improve your independence and quality oflife. Plan rest periods when you get tired. Monitoring important information Weigh yourself every day. This will help you to notice if too much fluid is building up in your body. ? Weigh yourself every morning after you urinate and before you eat breakfast. ? Wear the same amount of clothing each time you weigh yourself. ? Record your daily weight. Provide your health care provider with your weight record. Monitor and record your pulse and blood pressure as told by your health care provider. Dealing with extreme temperatures If the weather is extremely hot: ? Avoid vigorous physical activity. ? Use air conditioning or fans, or find a cooler location. ? Avoid caffeine and alcohol. ? Wear loose-fitting, lightweight, and light-colored clothing. If the weather is extremely cold: ? Avoid vigorous activity. ? Layer your clothes. ? Wear mittens or gloves, a hat, and a scarf when you go outside. ? Avoid alcohol. Follow these instructions at home: Stay up to date with vaccines. Pneumococcal and flu (influenza) vaccines are especially important in preventing infections of the airways. Keep all follow-up visits as told by your health care provider. This is important. Contact a health care provider if you: Have a rapid weight gain. Have increasing shortness of breath. Are unable to participate in your usual physical activities. Get tired easily. Cough more than normal, especially with physical activity. Lose your appetite or feel nauseous. Have any swelling or more swelling in areas such as your hands, feet, ankles, or abdomen. Are unable to sleep because it is hard to breathe. Feel like your heart is beating quickly (palpitations). Become dizzy or light-headed when you stand up. Get help right away if you: Have trouble breathing. Notice or your family notices a change in your awareness, such as having trouble staying awake or concentrating. Have pain or discomfort in your chest. Have an episode of fainting (syncope). These symptoms may represent a serious problem that is an emergency. Do not wait to see if the symptoms will go away. Get medical help right away. Call your local emergency services (911 in the [place] Do not drive yourself to the hospital. Summary Heart failure is a serious condition. To care for yourself, you may be asked to change your diet, take certain medicines, and make other lifestyle changes. Take your medicines every day. Do not stop taking them unless your health care provider tells you to do so. Eat heart-healthy foods, such as fresh or frozen fruits and vegetables, fish, lean meats, legumes, fat-free or low-fat dairy products, and whole-grain or high-fiber foods. Ask your health care provider if you have any alcohol restrictions. You may have to stop drinking alcohol if you have severe heart failure. Contact your health care provider if you notice problems, such as rapid weight gain or a fast heartbeat. Get help right away if you faint, or have chest pain or trouble breathing. This information is not intended to replace advice given to you by your health care provider. Make sure you discuss any questions you have with your health care provider. Document Released: 07/07/2019 Document Revised: 07/06/2019 Document Reviewed: 07/07/2019 [employer] Patient Education 2020 ETC Education. Cirrhosis Cirrhosis is long-term (chronic) liver injury. The liver is the body's largest internal organ, and it performs many functions. It converts food into energy, removes toxic material from the blood, makes important proteins, and absorbs necessary vitamins from food. In cirrhosis, healthy liver cells are replaced by scar tissue. This prevents blood from flowing through the liver, making it difficult for the liver to function. Scarring of the liver cannot be reversed, but treatment can prevent it from getting worse. What are the causes? Common causes of this condition are hepatitis C and long-term alcohol abuse. Other causes include: Nonalcoholic fatty liver disease. This happens when fat is deposited in the liver by causes other than alcohol. Hepatitis B infection. Autoimmune hepatitis. In this condition, the body's defense system (immune system) mistakenly attacks the liver cells, causing irritation and swelling (inflammation). Diseases that cause blockage of ducts inside the liver. Inherited liver diseases, such as hemochromatosis. This is one of the most common inherited liver diseases. In this disease, deposits of iron collect in the liver and other organs. Reactions to certain long-term medicines, such as amiodarone, a heart medicine. Parasitic infections. These include schistosomiasis, which is caused by a flatworm. Long-term contact to certain toxins. These toxins include certain organic solvents, such as tolueneand chloroform. What increases the risk? You are more likely to develop this condition if: You have certain types of viral hepatitis. You abuse alcohol, especially if you are female. You are overweight. You share needles. You have unprotected sex with someone who has viral hepatitis. What are the signs or symptoms? You may not have any signs and symptoms at first. Symptoms may not develop until the damage to yourliver starts to get worse. Early symptoms may include: Weakness and tiredness (fatigue). Changes in sleep patterns or having trouble sleeping. Itchiness. Tenderness in the right-upper part of your abdomen. Weight loss and muscle loss. Nausea. Loss of appetite. Appearance of tiny blood vessels under the skin. Later symptoms may include: Fatigue or weakness that is getting worse. Yellow skin and eyes (jaundice). Buildup of fluid in the abdomen (ascites). You may notice that your clothes are tight around your waist. Weight gain. Swelling of the feet and ankles (edema). Trouble breathing. Easy bruising and bleeding. Vomiting blood. Black or bloody stool. Mental confusion. How is this diagnosed? Your health care provider may suspect cirrhosis based on your symptoms and medical history, especially if you have other medical conditions or a history of alcohol abuse. Your health care provider will do a physical exam to feel your liver and to check for signs of cirrhosis. He or she may perform other tests, including: Blood tests to check: ? For hepatitis B or C. ? Kidney function. ? Liver function. Imaging tests such as: ? MRI or CT scan to look for changes seen in advanced cirrhosis. ? Ultrasound to see if normal liver tissue is being replaced by scar tissue. A procedure in which a long needle is used to take a sample of liver tissue to be checked in a lab (biopsy). Liver biopsy can confirm the diagnosis of cirrhosis. How is this treated? Treatment for this condition depends on how damaged your liver is and what caused the damage. It may include treating the symptoms of cirrhosis, or treating the underlying causes in order to slow thedamage. Treatment may include: Making lifestyle changes, such as: ? Eating a healthy diet. You may need to work with your health care provider or a diet and fire support specialist (dietitian) to develop an eating plan. ? Restricting salt intake. ? Maintaining a healthy weight. ? Not abusing drugs or alcohol. Taking medicines to: ? Treat liver infections or other infections. ? Control itching. ? Reduce fluid buildup. ? Reduce certain blood toxins. ? Reduce risk of bleeding from enlarged blood vessels in the stomach or esophagus (varices). Liver transplant. In this procedure, a liver from a donor is used to replace your diseased liver. This is done if cirrhosis has caused liver failure. Other treatments and procedures may be done depending on the problems that you get from cirrhosis. Common problems include liver-related kidney failure (hepatorenal syndrome). Follow these instructions at home: Take medicines only as told by your health care provider. Do not use medicines that are toxic to your liver. Ask your health care provider before taking any new medicines, including oxvv-fus-acstxzo medicines. Rest as needed. Eat a well-balanced diet. Ask your health care provider or dietitian for more information. Limit your salt or water intake, if your health care provider asks you to do this. Do not drink alcohol. This is especially important if you are taking acetaminophen. Keep all follow-up visits as told by your health care provider. This is important. Contact a health care provider if you: Have fatigue or weakness that is getting worse. Develop swelling of the hands, feet, legs, or face. Have a fever. Develop loss of appetite. Have nausea or vomiting. Develop jaundice. Develop easy bruising or bleeding. Get help right away if you: Vomit bright red blood or a material that looks like coffee grounds. Have blood in your stools. Notice that your stools appear black and tarry. Become confused. Have chest pain or trouble breathing. Summary Cirrhosis is chronic liver injury. Liver damage cannot be reversed. Common causes are hepatitis C and long-term alcohol abuse. Tests used to diagnose cirrhosis include blood tests, imaging tests, and liver biopsy. Treatment for this condition involves treating the underlying cause. Avoid alcohol, drugs, salt, and medicines that may damage your liver. Contact your health care provider if you develop ascites, edema, jaundice, fever, nausea or vomiting, easy bruising or bleeding, or worsening fatigue. This information is not intended to replace advice given to you by your health care provider. Make sure you discuss any questions you have with your health care provider. Document Released: 03/24/2006 Document Revised: 07/14/2019 Document Reviewed: 02/11/2018 Elsevier Patient Education 2020 [employer] Additional Information VACCINATE! IT SAVES LIVES! Members of the community who have not yet received the COVID-19 vaccine and would like to receive it can visit one of [facility] vaccine clinics. There are many vaccine clinic locations within the [facility]. For locations and available times, please visit https://[email or web address].[place].gov/. It is important to note that some COVID mobile vaccine clinics are held outdoors and may be canceled in rainy or stormy conditions. To learn more about pediatric vaccinations (ages 5-11), we invite you to visit the [facility] webpage. [email or web address]/[email or web address] [email or web address] learn more about the COVID-19 vaccine, we invite you to visit the CDC website for a list of frequently asked questions.https://www.cdc.gov/coronavirus/2019-ncov/vaccines/faq.html [place] [email or web address] Patient Portal Access Instructions: Stay connected with your healthcare team and access your personal medical information anytime with the [employer] Patient Portal. Please follow the directions below to create your [employer] account: 1.Access the email account you provided upon registration to the hospital/physician office.2.Look for an invitation email from [facility].3.Open the email and access the invitation link: AcceptInvitation to [employer].4.Fill in the required allen to create your account. To access your account, visit [email or web address]. Click the blue button labeled Access Patient Portal and then log in with the username and password that you created in the steps above. You will be able to view your test results, lab results, a summary of your visits, upcoming appointments and more. There is also a convenient messaging option where you can send secure messages to your p [employer]. In addition, you will have the ability to download any documents or summaries to your computer and/or send the information securely to a physician. Remember that your healthcare information is confidential, so carefully consider who you will allowto register on the [employer] Patient Portal for access to your information. You can also access the [employer] Patient Portal on the [employer]. Simply click on Patient Portal and then log into your account. If you would like to receive a full copy of your medical records, please contact the [facility] Medical Records Department by calling [phone], Friday through Friday between 8 a.m. and 4:30 p.m. HOW TO SAFELY DISPOSE OF PRESCRIPTION MEDICATIONS Please use one of the following methods to safely dispose of your unused medications. 1.Use a drug disposal kit: the drug disposal pouch allows you to safely discard your old and unuseddrugs. Ask your nurse to give you one when you are discharged.2.Visit a local take-back location: Many local pharmacies and police departments have programs that collect old and unwanted prescriptiondrugs. Call your local pharmacy or go to http://MailLift.ly/2G3Lo2k to find one close to you.3.Make use of household items: Use cat litter or old coffee grounds to dispose medications if other options arenot available. Mix your drugs with these household products, seal them in an airtight container andthrow it into the garbage. Call [facility]: [phone] to be sure your drugs can be disposed of in this way. Some medicines may require a different approach.4.Never flush your medications down the toilet. IF YOU HAVE BEEN PRESCRIBED AN OPIOID FOR PAIN If you have been prescribed an opioid (such as hydrocodone, oxycodone or morphine), it is critical to understand the possible side effects and risks of opioid pain medications. Even when taken as directed, opioids can have several side effects including: Tolerance, meaning you might need to take more of a medication for the same pain relief. Nausea, vomiting and/or constipation. Sleepiness, dizziness, dry mouth, confusion, depression or itching. Physical dependence, meaning you have withdrawal symptoms when a medication is stopped, can develop within a few days. KNOW YOUR RESPONSIBILITIES It is important to know exactly how much and how often to take the opioid pain medications you are prescribed. Never take opioids in higher amounts or more often than prescribed. Do not combine opioids with alcohol or other drugs that cause drowsiness, such as benzodiazepines, also known as benzos, including diazepam and alprazolam, muscle relaxants or sleep aids. Never sell or share prescription opioids. This is illegal. Store opioids in a secure place and out of reach of others (including children, family, friends and visitors). The last page of this document has been signed and retained as a CHART COPY. Signatures Patient Education Materials Heart Failure, Self Care Cirrhosis Medication Leaflets spironolactone, ammonium lactate topical My discharge plan and instructions have been reviewed and explained to me and I,YUSEF MUIR JR understand my current condition and have read and understand these discharge instructions. I have received a written copy of the plan/instructions. If I have questions, I am aware that I should contactmy doctor. 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 COMPARISON: Ultrasound 07/31/2023 HISTORY: ORDERING SYSTEM PROVIDED HISTORY: Reason for Exam: Concern for cirrhosis, ascites FINDINGS: Median velocity: 1.84 m/s IQR/median ratio: 7.6% (Value less than or equal to 15% should be seen to ensure exam adequacy.) IMPRESSION: Elastography indicates a moderate to severe risk of clinically significant liver fibrosis. Shear Wave Liver Elastography-liver fibrosis staging Median Velocity: Recommendation: 1.35-1.66 m/s (5.48 kPa - 8.29 kPa) Normal to mild risk of clinically significant liver fibrosis : METAVIR Stage F1 1.66-1.77 m/s (8.29 kPa - 9.40 kPa) Fwxu-cs-evqqlhja risk of clinically significant liver fibrosis. (METAVIR Stage F2) 1.77-1.99 m/s (9.40 kPa - 11.9 kPa) Moderate to severe risk of clinically significant liver fibrosis (METAVIR Stage F3) > 1.99 m/s (> 11.9 kPa) Advanced Fibrosis and/or Cirrhosis: (METAVIR Stage F4) Interpreted by: Eladia Ruggiero MD Preliminary Report By: Eladia Ruggiero MD Electronically signed By Eladia Ruggiero MD Dictated Date: 08/01/2023 10:26:09 AM Prelim Date: 08/01/2023 10:27:22 AM Sign Date: 08/01/2023 10:27:22 AM Ordering Provider: [facility]04-25-2024 Note Date of Service 07/31/23 Chief Complaint general edema Subjective 58-year-old male with past medical history significant for type 2 diabetes mellitus, HFrEF, HTN, HLD, alcohol dependence, pulmonary hypertension, nonsustained monomorphic V. tach, peripheral neuropathy, Lung nodule, PE ?Patient presented to [facility] emergency department on 07/30/2023 with a 2 to 3-week history of generalized edema. In the emergency department he was afebrile and hemodynamically stable with adequate oxygenation on room air. No leukocytosis. Creatinine 1.37 with a GFR of 54. BNP 24,524, troponin 24. X- ray chest unremarkable. Patient was given a dose of Lasix 40 mg IV in the emergency department and subsequently admitted. Patient was initiated on Lasix 40 mg IV twice daily. He was noted to have deep fissures on his feet. He follows with Dr. Gutierrez. Pt reports that Dr. Gutierrez was in and stated that fissures actually appear improved from his previous assessment. Overnight patient remained afebrile and hemodynamically stable with adequate oxygenation on room air. This morning's weight is 126.2 kg. CBC unremarkable. CMP appears near baseline. On exam today, pt denies any fever or chills. No headache or dizziness. Denies chest pain, palpitations. No cough, dyspnea, sputum production. Admits abdominal fullness/distention. Also reports earlysatiety. No melena/hematochezia. No dysuria or hematuria. No new paresthesias. Objective Vitals and Measurements T: 36.4 C (Oral) TMIN: 35.8 C (Axillary) TMAX: 36.7 C (Oral) HR: 78(Apical) RR: 18 BP: 138/96 SpO2:95% HT: 182.9 cm WT: 126.2 kg BMI: 37.52 Intake and Output 7AM Yesterday to 7AM Today Intake and Output (Last 24 hours) Intake Oral Intake 900.00 Output Urine Voided 2550.00 Stool Count 0.00 Urine Count 2.00 Total Summary Total Intake 900.00 Total Output 2550.00 Fluid Balance -1650.00 Physical Exam GEN: Appears chronically ill CHEST: Normal S1 and S2. Rhythm is regular. Clear to auscultation, without rales, rhonchi, wheezing. ABD: Positive bowel sounds x 4 quads. Soft, nondistended, nontender. EXT: No significant deformity or joint abnormality. 1+ edema BLE. Peripheral pulses intact. NEURO: Sensation grossly intact SKIN: Skin color normal PSYCH: The mental examination revealed the patient was Drowsy and oriented x 4 Weight Current Weight Dosing Weight: 125.5 kg (07/30/23) Current Weight: 126.2 kg (07/31/23) Dosing Weight: 128.1 kg (07/30/23) Medications Medications (23) Active Scheduled: (13) atorvastatin 10 mg tablet 10 mg 1 tab(s), Oral, qHS empagliflozin 10 mg tablet 10 mg 1 tab(s), Oral, qAM folic acid 1 mg tablet 1 mg 1 tab(s), Oral, qDay furosemide 40 mg/4 mL vial 40 mg 4 mL, IV Push, BID gabapentin 300 mg Capsule 600 mg 2 cap(s), Oral, TID glimepiride 2 mg Tablet 2 mg 1 tab(s), Oral, qDay insulin glargine 100 units/ml solution 20 unit(s) 0.2 mL, Subcutaneous, qHS insulin lispro 100 units/mL Soln (3 mL) Give 0-5 units/dose, Subcutaneous, TIDAC metoprolol tartrate 25 mg tablet 12.5 mg 0.5 tab(s), Oral, qDay rOPINIRole 1 mg tablet 1 mg 1 tab(s), Oral, qDay sacubitril-valsartan 24-26 mg oral tablet 1 tab(s), Oral, BID spironolactone 5 mg /1 mL 2.5 mL Susp Oral Syringe 12.5 mg 2.5 mL, Oral, qDayM thiamine (w/calcium) 100 mg tablet 100 mg 1 tab(s), Oral, qDay Continuous: (0) PRN: (10) acetaminophen 325 mg Tablet 650 mg 2 tab(s), Oral, q4h acetaminophen 325 mg Tablet 650 mg 2 tab(s), Oral, q4h albuterol - ipratropium 2.5 mg-0.5 mg/3 mL Inhal Lavinia UD 3 mL, Inhalation, q4hRT benzonatate 100 mg Capsule 100 mg 1 cap(s), Oral, TID calcium carbonate 500 mg Chewable 500 mg 1 tab(s), Chewed, TID cyclobenzaprine 10 mg Tablet 10 mg 1 tab(s), Oral, TID guaifenesin 100 mg/5 mL 120 mL liquid 200 mg 10 mL, Oral, q4h LORAZEPam 2 mg/mL 1 mL vial 0.5 mg 0.25 mL, IV Push, q4h melatonin 3 mg tablet 6 mg 2 tab(s), Oral, qHS ondansetron 2 mg/ 1 mL 2 mL INJ 4 mg 2 mL, IV Push, q4h Lab Results 07/30 05:18 WBC: 5.8 Hgb: 13.9 L Hct: 41.8 L Platelet: 225 Neutrophil %: 76.0 Glucose Level: 102 Sodium Level: 142 Potassium Level: 4.2 BUN: 24 H Creatinine Lvl (s): 1.27 07/29 20:45 Potassium Level: 3.7 07/29 11:36 WBC: 7.4 Hgb: 13.7 L Hct: 41.6 L Platelet: 217 Neutrophil %: 85.9 H Glucose Level: 189 H Sodium Level: 141 Potassium Level: 4.3 BUN: 24 H Creatinine Lvl (s): 1.37 H Imaging Results and Diagnostics XR Chest 1 View Result Date: July 30, 2023 Verified By: DIANA BROWN, JODI Ocampo CLINICAL STATEMENT: IMPRESSION: No radiographic evidence of acute cardiopulmonary process. EKG EKG [ED AOH] - Completed -- 07/30/23 11:26:00 EDT, Now, 07/30/23 11:26:00 EDT Assessment/Plan 1. CHF exacerbation 2. Diabetes mellitus type 2 3. HTN (hypertension) 4. Multiple wounds of skin 5. JOHN (obstructive sleep apnea) 6. Weakness 7. Alcohol dependence Combined systolic and diastolic heart failure LVEF On echo from 05/2023 is 20% with diastolic dysfunction present. Continue home maintenance medications. Continue Lasix 40 mg IV twice daily. Continue daily weights. Patient has no respiratory symptoms. He does have mild edema bilateral lower extremities. Abdominal distention noted, concerning for ascites. Obtain ultrasound abdomen for ascites/cirrhosis. Increase spironolactone 25mg daily. HTN- SBP goal 140 or less. Continue home antihypertensives. Type 2 diabetes mellitus- Glucose goal 180 or less and avoid hypoglycemia. Corrective sliding scaleinsulin. ADA diet. 05/2023 A1c 10.6%. Wounds on feet- Dr. Gutierrez was consulted. No new orders. JOHN patient is noncompliant with CPAP. He was educated on risks of untreated sleep apnea. Weakness awaiting therapy recommendations. Alcohol dependence patient has reduced his alcohol consumption recently. He is not interested in quitting at this time. Explained the risk for liver disease with continued alcohol consumption. ObtainUS liver/RUQ due to concern for liver disease. Monitor for signs of withdrawl. DVT prophylaxis: SCD's Code Status:Full Code Plan of care discussed with patient. All questions answered. Patient verbalizes understanding is agreeable to plan of care. This dictation was performed using voice recognition software and may include grammatical and/or spelling errors. Anticipated Date of Discharge 07/31 or 08/01 Time Spent 42 minutes Digitally Signed by ELPIDIO ESTEBAN on 07/31/2023 11:20 AM [facility]04-25-2024 Note ORIGINAL EXAMINATION: LIMITED ABDOMINAL ULTRASOUND07/31/2023 9:47 am COMPARISON: None HISTORY: ORDERING SYSTEM PROVIDED HISTORY: Reason for Exam: RUQ-liver and for ascites, diabetes, hypertension and ETOH abuse by given history FINDINGS: There are some limitations to the study from artifacts due to body habitus and bowel gas. The liver is slightly coarsened in echotexture with minimal increase in echogenicity. No focal mass is seen and there is no significant nodularity of the liver margins. No intrahepatic bile duct dilatation. The common duct is not clearly defined due to artifacts but is not dilated. The gallbladder is less than optimally distended with moderate diffuse wall thickening. No shadowing stones. Limited evaluation for intraluminal pathology. Negative sonographic Diaz's sign Large portions of the pancreas are obscured by artifacts. Visualized segments show no focal mass. There is a small amount of ascites in all quadrants of the abdomen and in the pelvis. The right kidney shows normal echogenicity with no obstruction IMPRESSION: Small amount of ascites. Equivocal findings of diffuse hepatocellular disease. Interpreted by: Eladia Ruggiero MD Preliminary Report By: Eladia Ruggiero MD Electronically signed By Eladia Ruggiero MD Dictated Date: 07/31/2023 2:31:08 PM Prelim Date: 07/31/2023 2:34:37 PM Sign Date: 07/31/2023 2:34:37 PM [facility] Note Date of Service 07/30/2023 Chief Complaint Presents with generalized edema for the past 2-3 weeks History of Present Illness Patient is a 58-year-old male, who follows with Dr. Guadalupe Ruggiero with a past medical history significant for type 2 diabetes, HFrEF, hypertension, hyperlipidemia, and alcohol abuse, presents to [facility] emergency department with the chief complaint of lower extremity edema. Patient states that he ran out of Jardiance a few days ago and has noticed increased lower extremity edema over the last few days. Patient was just transferred to [facility] from [facility] in May due tonew onset of EF 20%+/- 5%. He was admitted to CCU on a lasix drip and had a cardiac catheterizationon 06/02 which revealed no disease. He was diagnosed with alcohol-induced cardiomyopathy. Patient just saw Dr. Hawkins on 07/09/2023 due to shortness of breath. Labs were ordered including a BNP but no results in the computer so unsure that patient actually had those drawn. Patient denies any fever, chills, cough, chest pain, abdominal pain, abdominal bloating, nausea or dysuria. He reports shortn ess of breath. In the emergency department, chest x-ray revealed no acute radiographic abnormality. EKG shows sinus rhythm with RBBB. CBC was unremarkable. BMP significant for glucose 189, BUN 24, and creatinine 1.37. T[place] [address]. Patient was administered 40 mg furosemide IV in the ED. The case was discussed with the ED physician who recommended admission for IV diuresis. Patient was transferred to telemetry for observation. We will continue furosemide 40 mg IV BID. Echo just done in 05/2023 so will not repeat at this time. We will monitor renal function while diuresing patient. We will consult Dr. Gutierrez, podiatry, for multiple deep fissures on bilateral feet. Repeat CBC, CMP and magnesium level in the am. Patient seen and evaluated this afternoon while resting in bed on telemetry. Lungs were clear to auscultation, abdominal soft and nontender. Bilateral lower extremities with 2+ edema noted in bilateral lower extremities. Patient with multiple circular wounds on arms and legs. He states that he is itchy and they are from scratching which does not make sense as they are not scratches but rather round wounds. Patient with multiple deep fissures noted on bilateral feet. He was supposed to see but could not make the appointment. We will consult Dr. Gutierrez for recommendation. Patient very dirty today. Patient asked to be honest about how much he is drinking and he states a 3-pack over 2 days time. Patient educated on watching his fluid intake which includes beer. He states he has cut back. He denies any smoking but does chew. Patient complaining of weakness and falls recently. Would benefit from PT/OT consult. Discussed plan of care with patient and he is agreeable to proceed. All questions answered. Review of Systems Review of Systems: Reviewed in detail, including general health, HEENT, cardiovascular, respiratory, gastrointestinal, genitourinary, endocrine, musculoskeletal, neurologic, vascular, skin, and psychiatric. All are negative except for those listed in the History of Present Illness. Physical Exam Vitals and Measurements T: 36.3 C (Oral) TMIN: 36.3 C (Oral) TMAX: 36.7 C (Oral) HR: 90(Monitored) RR: 16 BP: 144/109 SpO2:95% HT: 182.9 cm WT: 118.2 kg BMI: 35.33 Weight Dosing Weight: 118.2 kg (07/30/23) Dosing Weight: 128.1 kg (07/30/23) General: No acute distress. Patient is alert and appropriate, unkempt. Skin: No rash. Skin is warm, dry. Multiple round wounds noted on bilateral arms and legs. HEENT: Head is normocephalic, atraumatic. Pupils are equal, round and reactive. Neck: Supple. No lymphadenopathy, thyromegaly. Lungs: Bilaterally clear but diminished without crepitation or wheeze. Unlabored. Heart: Heart is regular rhythm, S1, S2. No murmurs, gallops or rubs. Abdomen: Abdomen is soft, nontender. Bowels sounds present in all quadrants. Extremities: No clubbing, cyanosis; 2+ edema noted in BLE. Peripheral pulses palpable. No calf tenderness. Feet with several deep fissures. Neurological: Patient is awake and alert to person, place and time. Following simple commands, moving all extremities. Lab Results 07/29 11:36 WBC: 7.4 Hgb: 13.7 L Hct: 41.6 L Platelet: 217 Neutrophil %: 85.9 H Glucose Level: 189 H Sodium Level: 141 Potassium Level: 4.3 BUN: 24 H Creatinine Lvl (s): 1.37 H Imaging Results and Diagnostics XR Chest 1 View Result Date: July 30, 2023 Verified By: DIANA BROWN, JODI Ocampo CLINICAL STATEMENT: IMPRESSION: No radiographic evidence of acute cardiopulmonary process. EKG EC07/30/23: Sinus rhythm Right bundle branch block Electronic Signature: LOUISA YBARRA MD 07/30/2023 12:29:51 Assessment/Plan 1. CHF exacerbation Acute on chronic. Echo done on 05/29/2023 and revealed EF 15-25%. Patient was transferred to [facility] CCU and had heart cath on 06/02 which revealed no disease. Patient diagnosed with alcohol-induced cardiomyopathy. States now drinks 3-25 oz beers over 2 days time. Continue furosemide 40 mg IV BID. Monitor daily weights. Low sodium diet. Strict I&O's. Monitor BMP daily. 2. Multiple wounds of skin Acute on chronic. Multiple deep fissures on both feet. Will consult Dr. Gutierrez for recommendation. Multiple round wounds on arms and legs. 3. Weakness Chronic, worse lately. Will consult PT and OT to evaluate and treat. 4. COPD (chronic obstructive pulmonary disease) Chronic, not in exacerbation. Start duoneb aerosols as needed for shortness of breath/wheezing. 5. Diabetes mellitus type 2 Chronic. Blood sugar checks before meals and at bedtime. Cover with corrective sliding scale insulin. ADA diet. Blood sugar goal of 180 or less and avoid hypoglycemia. A1c 10.6% on 05/28. 6. HTN (hypertension) Chronic. Continue current antihypertensives. SBP goal of 140 or less. 7. JOHN (obstructive sleep apnea) Chronic. Not compliant with CPAP. May use oxygen at night as needed. DVT prophylaxis with heparin sc. Code status: Full Code. Labs, diagnostic test and progress notes reviewed as noted in HPI. Plan of care discussed with patient. All questions answered. Patient verbalizes understanding and is agreeable with plan of care. This case was discussed with collaborating physician, Dr. Kenyon Yap. 75 minutes spent reviewing past diagnostic tests, reviewing lab results, vital sign trends, medicalhistory, reviewing medications and ordering home medications, examining patient, discussed plan of care with nursing, collaborating with physician, and documenting in chart. Orders: acetaminophen, Start: 07/30/23 14:32:00 EDT, Dose = 650 mg, = 2 tab(s), Oral, q4h, PRN, Pain, scale1-3, 07/30/23 14:32:00 EDT acetaminophen, Start: 07/30/23 14:32:00 EDT, Dose = 650 mg, = 2 tab(s), Oral, q4h, PRN, TEMP greater than 38.6 degrees Celsius, 07/30/23 14:32:00 EDT benzonatate, Start: 07/30/23 14:32:00 EDT, Dose = 100 mg, = 1 cap(s), Oral, TID, PRN, Cough, 07/30/23 14:32:00 EDT calcium carbonate, Start: 07/30/23 14:32:00 EDT, Dose = 500 mg, = 1 tab(s), Chewed, TID, PRN, Heartburn, 07/30/23 14:32:00 EDT guaiFENesin, Start: 07/30/23 14:32:00 EDT, Dose = 200 mg, = 10 mL, Oral, q4h, PRN, Cough, Liquid, 0, 07/30/23 14:32:00 EDT insulin lispro (HumaLOG), Start: 07/30/23 17:00:00 EDT, Give 0-5 units/dose, Subcutaneous, TIDAC, 07/30/23 14:33:00 EDT melatonin, Start: 07/30/23 14:32:00 EDT, Dose = 6 mg, = 2 tab(s), Oral, qHS, PRN, Sleep, 07/30/23 14:32:00 EDT ondansetron, Start: 07/30/23 14:32:00 EDT, Dose = 4 mg, = 2 mL, IV Push, q4h, PRN, Nausea/Vomiting,07/30/23 14:32:00 EDT Ambulate [place] [employer] Diet Basic Metabolic Panel Blood Glucose Monitoring Bedside PRN Blood Glucose Monitoring POC Complete Blood Count Incentive Spirometer Intake and Output IV Catheter Insertion/Care Magnesium Level Oxygen Administration Prn Adapter Pulse Oximeter - Intermittent Sequential Compression Device Application Straight Cath Titrate / Wean Oxygen Vital Signs Weight Problem List/Past Medical History Ongoing No qualifying data Historical No qualifying data Procedure/Surgical History Cardiac catheterization: 2023 Cardiac catheterization: 06/02/23 Echocardiogram: 05/29/23 Cardiac catheter: 12/07/21 Cardiac catheter: 2014 ACL - Anterior cruciate ligament rupture Meniscus Medications Home Medications (20) Active Alcohol Swabs See Instructions Aldactone 25 mg oral tablet 12.5 mg = 0.5 tab(s), Oral, qDayM Blood Glucose Test Machine See Instructions Blood Glucose Test Strips See Instructions cyclobenzaprine 10 mg oral tablet 10 mg = 1 tab(s), PRN, Oral, TID Entresto 24 mg-26 mg oral tablet 1 tab(s), Oral, BID folic acid 1 mg oral tablet 1 mg = 1 tab(s), Oral, qDay gabapentin 600 mg oral tablet 600 mg = 1 tab(s), Oral, TID glimepiride 2 mg oral tablet 2 mg = 1 tab(s), Oral, qDay Jardiance 10 mg oral tablet 10 mg = 1 tab(s), Oral, qAM Kerasal [place] 12% topical lotion 1 lazaro, Topical, Daily Lancets See Instructions Lantus Solostar Pen 100 units/mL 3 mL Pen 20 unit(s), Subcutaneous, qHS Lasix 20 mg oral tablet 20 mg = 1 tab(s), Oral, qDay metoprolol succinate 25 mg oral TABLET extended release 12.5 mg = 0.5 tab(s), Oral, qDay Pen needles See Instructions potassium chloride 20 mEq oral tablet, extended release 20 mEq = 1 tab(s), PRN, Oral, qDay rOPINIRole 1 mg oral tablet 1 mg = 1 tab(s), Oral, qDay simvastatin 10 mg oral tablet 10 mg = 1 tab(s), Oral, qPM thiamine 100 mg oral tablet 100 mg = 1 tab(s), Oral, qDay Allergies aspirin (bloody nose) Social History Alcohol Use: Current. Type: Beer. Frequency: Daily., 07/30/2023 Home/Environment Living situation: Home/Independent. Financial concerns: No. Domestic Concerns: Denies. Lives In: Single level home. Current Home Treatments patient noncompliant with checking blood glucose . Professional Skilled Services or Special Community Resources None. Marital Status: Unmarried., 07/30/2023 Nutrition/Health Type of diet: Regular. Caffeine intake amount: occasionally. Appetite Fair. Eating Difficulties None. Enteral Feedings No. TPN Feedings No., 07/30/2023 Substance Abuse Use: Never., 07/30/2023 Tobacco Nicotine Use: I chew. Type: Oral (Snuff, Chew)., 05/15/2023 Family History Congestive heart failure: Mother. Diabetes: Mother. Immunizations hepatitis A adult vaccine: 0.5 unknown unit (04/29/19) pneumococcal 23-valent vaccine(Pneumovax: 0.5 unknown unit (04/07/10) tetanus/diphth/pertuss (Tdap) adult/adol: 0.5 unknown unit (08/26/18) Code Status Code Status - Ordered -- 07/30/23 12:34:00 EDT, Full Code, Constant Order Digitally Signed by SILVANO DODSON on 07/30/2023 04:31 PM [facility]04-24-2024 Evaluation + Plan noteExtracted from: Title:History and Physical Author:SILVANO DODSON Date:07/30/23 1. CHF exacerbation Acute on chronic. Echo done on 05/29/2023 and revealed EF 15-25%. Patient was transferred to [facility] CCU and had heart cath on 06/02 which revealed no disease. Patient diagnosed with alcohol-induced cardiomyopathy. States now drinks 3-25 oz beers over 2 days time. Continue furosemide 40 mg IV BID. Monitor daily weights. Low sodium diet. Strict I&O's. Monitor BMP daily. 2. Multiple wounds of skin Acute on chronic. Multiple deep fissures on both feet. Will consult Dr. Gutierrez for recommendation. Multiple round wounds on arms and legs. 3. Weakness Chronic, worse lately. Will consult PT and OT to evaluate and treat. 4. COPD (chronic obstructive pulmonary disease) Chronic, not in exacerbation. Start duoneb aerosols as needed for shortness of breath/wheezing. 5. Diabetes mellitus type 2 Chronic. Blood sugar checks before meals and at bedtime. Cover with corrective sliding scale insulin. ADA diet. Blood sugar goal of 180 or less and avoid hypoglycemia. A1c 10.6% on 05/28. 6. HTN (hypertension) Chronic. Continue current antihypertensives. SBP goal of 140 or less. 7. JOHN (obstructive sleep apnea) Chronic. Not compliant with CPAP. May use oxygen at night as needed. DVT prophylaxis with heparin sc. Code status: Full Code. Labs, diagnostic test and progress notes reviewed as noted in HPI. Plan of care discussed with patient. All questions answered. Patient verbalizes understanding and is agreeable with plan of care. This case was discussed with collaborating physician, Dr. Kenyon Yap. 75 minutes spent reviewing past diagnostic tests, reviewing lab results, vital sign trends, medical history, reviewing medications and ordering home medications, examining patient, discussed plan of care with nursing, collaborating with physician, and documenting in chart. Orders: acetaminophen, Start: 07/30/23 14:32:00 EDT, Dose = 650 mg, = 2 tab(s), Oral, q4h, PRN, Pain, scale 1-3, 07/30/23 14:32:00 EDT acetaminophen, Start: 07/30/23 14:: EDT, Dose = 650 mg, = 2 tab(s), Oral, q4h, PRN, TEMP greater than 38.6 degrees Celsius, 07/30/23 14:32:00 EDT benzonatate, Start: 07/30/23 14:32:00 EDT, Dose = 100 mg, = 1 cap(s), Oral, TID, PRN, Cough, 07/30/23 14:32:00 EDT calcium carbonate, Start: 07/30/23 14::00 EDT, Dose = 500 mg, = 1 tab(s), Chewed, TID, PRN, Heartburn, 07/30/23 14:32:00 EDT guaiFENesin, Start: 07/30/23 14:32:00 EDT, Dose = 200 mg, = 10 mL, Oral, q4h, PRN, Cough, Liquid , 0, 07/30/23 14:32:00 EDT insulin lispro (HumaLOG), Start: 07/30/23 17:00:00 EDT, Give 0-5 units/dose, Subcutaneous, TIDAC, 07/30/23 14:33:00 EDT melatonin, Start: 07/30/23 14:32:00 EDT, Dose = 6 mg, = 2 tab(s), Oral, qHS, PRN, Sleep, 07/30/23 14:32:00 EDT ondansetron, Start: 07/30/23 14:32:00 EDT, Dose = 4 mg, = 2 mL, IV Push, q4h, PRN, Nausea/Vomiting, 07/30/23 14:32:00 EDT Ambulate [place] [employer] Diet Basic Metabolic Panel Blood Glucose Monitoring Bedside PRN Blood Glucose Monitoring POC Complete Blood Count Incentive Spirometer Intake and Output IV Catheter Insertion/Care Magnesium Level Oxygen Administration Prn Adapter Pulse Oximeter - Intermittent Sequential Compression Device Application Straight Cath Titrate / Wean Oxygen Vital Signs Weight Future Appointments Appointment Date:08/11/2023 11:30:00 AM Scheduled Provider:HUSAM CALLES Location:[facility] Appointment Type:[facility] Hospital Follow Up Future Scheduled Tests Laboratory* Basic Metabolic Panel 07/09/23 * N-Terminal proBNP 07/09/23 [facility] 04-24-2024 Note ORIGINAL EXAMINATION: ONE XRAY VIEW OF THE CHEST07/30/2023 12:22 pm CHEST ONE VIEW AP/PA COMPARISON: 06/06/2023. HISTORY: ORDERING SYSTEM PROVIDED HISTORY: Reason for Exam: chest pain FINDINGS: Heart size and vascularity are within normal limits. The lungs are clear of focal consolidation. No effusion, pneumothorax, or acute osseous abnormality. IMPRESSION: No radiographic evidence of acute cardiopulmonary process. Interpreted by: Jodi Varghese MD Preliminary Report By: Jodi Varghese MD Electronically signed By Jodi Varghese MD Dictated Date: 07/30/2023 12:34:07 PM Prelim Date: 07/30/2023 12:34:20 PM Sign Date: 07/30/2023 12:34:20 PM Ordering Provider: [facility]RA[facility] Note Sinus rhythm Right bundle branch block Electronic Signature: LOUISA YBARRA MD 07/30/2023 12:29:51[facility] 04-14-2024 Hospital Discharge instructions Patient Education 07/20/2023 19:24:19 Cellulitis Skin Infection Cellulitis Cellulitis is an infection of the deep layers of skin. A break in the skin, such as a cut or scratch, can let bacteria under the skin. If the bacteria get to deep layers of the skin, it can be serious. If not treated, cellulitis can get into the bloodstream and lymph nodes. The infection can then spread throughout the body. This causes serious illness. Cellulitis causes the affected skin to become red, swollen, warm, and sore. The reddened areas havea visible border. An open sore may leak fluid (pus). You may have a fever, chills, and pain. Cellulitis is treated with antibiotics taken for 7 to 10 days. An open sore may be cleaned and covered with cool wet gauze. Symptoms should get better 1 to 2 days after treatment is started. Make sure to take all the antibiotics for the full number of days until they are gone. Keep taking the medicine even if your symptoms go away. Home care Follow these tips: Limit the use of the part of your body with cellulitis. If the infection is on your leg, keep your leg raised while sitting. This will help to reduce swelling. Take all of the antibiotic medicine exactly as directed until it is gone. Do not miss any doses, especially during the first 7 days. Don t stop taking the medicine when your symptoms get better. Keep the affected area clean and dry. Wash your hands with soap and warm water before and after touching your skin. Anyone else who touches your skin should also wash his or her hands. Don't share towels. Follow-up care Follow up with your healthcare provider, or as advised. If your infection does not go away on the first antibiotic, your healthcare provider will prescribe a different one. When to seek medical advice Call your healthcare provider right away if any of these occur: Red areas that spread Swelling or pain that gets worse Fluid leaking from the skin (pus) Fever higher of 100.4 F (38.0 C) or higher after 2 days on antibiotics [id number] [employer] [address] [place] [address], [place] [address]. All rights reserved. This information is not intended as a substitute for professional medical care. Always follow yourhealthcare professional's instructions. Follow Up Care 07/20/2023 17:57:47 With:GUADALUPE RUGGIERO MD Address: [address] [place] [phone] When:2-4 days [facility] 04-14-2024 Note Discharge Instructions Thank you for allowing [facility] to assist you with your healthcare needs. The following is importantdischarge information regarding your hospital visit. Diagnosis from Today's Visit Cellulitis of leg Edema of right lower extremity What to Do Next Instructions from Your Care Team Discharge Return to Work, School, or Sports (Return to Work, School, or Sports) - Ordered -- 07/21/23, May return to: work, 07/20/23 19:24:00 EDT Post Acute Orders No qualifying data available. You Need to Schedule the Following Appointments Follow Up with GUADALUPE RUGGIERO MD When Within 2-4 days Where: [facility] [place] [address]- [phone] Allergies aspirin Medications Please ask your primary doctor or pharmacist before taking any other medication not listed, including over the counter drugs, herbal medications, vitamins and or supplements as they may interact withyour home medications. What How Much When Instructions Last Dose New cephalexin (cephalexin 500 mg oral capsule) 1 cap by mouth Four (4) times a day Duration: 7 Days Printed Prescription New doxycycline (doxycycline hyclate 100 mg oral capsule) 1 cap by mouth Two (2) times a day Duration: 7 Days Printed Prescription Please take this list to your next doctor s visit. Bring all medications you take, including over the counter medications, herbals and other supplements with you to your doctor s visit. Patients and families are reminded to discard old lists and to update any records with all medication providers or retail pharmacies. Education Materials Cellulitis Cellulitis is an infection of the deep layers of skin. A break in the skin, such as a cut or scratch, can let bacteria under the skin. If the bacteria get to deep layers of the skin, it can be serious. If not treated, cellulitis can get into the bloodstream and lymph nodes. The infection can then spread throughout the body. This causes serious illness. Cellulitis causes the affected skin to become red, swollen, warm, and sore. The reddened areas havea visible border. An open sore may leak fluid (pus). You may have a fever, chills, and pain. Cellulitis is treated with antibiotics taken for 7 to 10 days. An open sore may be cleaned and covered with cool wet gauze. Symptoms should get better 1 to 2 days after treatment is started. Make sure to take all the antibiotics for the full number of days until they are gone. Keep taking the medicine even if your symptoms go away. Home care Follow these tips: Limit the use of the part of your body with cellulitis. If the infection is on your leg, keep your leg raised while sitting. This will help to reduce swelling. Take all of the antibiotic medicine exactly as directed until it is gone. Do not miss any doses, especially during the first 7 days. Don t stop taking the medicine when your symptoms get better. Keep the affected area clean and dry. Wash your hands with soap and warm water before and after touching your skin. Anyone else who touches your skin should also wash his or her hands. Don't share towels. Follow-up care Follow up with your healthcare provider, or as advised. If your infection does not go away on the first antibiotic, your healthcare provider will prescribe a different one. When to seek medical advice Call your healthcare provider right away if any of these occur: Red areas that spread Swelling or pain that gets worse Fluid leaking from the skin (pus) Fever higher of 100.4 F (38.0 C) or higher after 2 days on antibiotics 5529-2744 The app[employer]evr. [address] [place] [address]. All rights reserved. This information is not intended as a substitute for professional medical care. Always follow yourhealthcare professional's instructions. Additional Information VACCINATE! IT SAVES LIVES! Members of the community who have not yet received the COVID-19 vaccine and would like to receive it can visit one of [facility] vaccine clinics. There are many vaccine clinic locations within the [facility]. For locations and available times, please visit [email or web address]/. It is important to note that some COVID mobile vaccine clinics are held outdoors and may be canceled in rainy or stormy conditions. To learn more about pediatric vaccinations (ages 5-11), we invite you to visit the [facility] webpage. [email or web address]/[email or web address] [email or web address] learn more about the COVID-19 vaccine, we invite you to visit the CDC website for a list of frequently asked questions. https://www.cdc.gov/coronavirus/2019-ncov/vaccines/faq.html [facility] Patient Portal Access Instructions: Stay connected with your healthcare team and access your personal medical information anytime with the [facility] Patient Portal. If you would like a full copy of your medical records please contact the [facility] Medical Records Department Friday through Friday between 8a.m. and 4:30p.m. Please follow the directions below to access the portal: 1.Access the email account you provided upon registration to the [facility].2.Look for an invitation email from [facility].3.Open the email and access the invitation link: Accept Invitation to [facility]4.Fill in the required allen to create your account. Sign into [email or web address] with your username and password that you created in the above steps to stay up to date. You can then view a summary of results, a summary of your visits, and the ability to download your summaries to your computer or send the information securely to a physician. Remember that your healthcare information is confidential, so carefully consider who you will allow to register on the [facility] Patient Portal for access to your information. You can also access the [facility] Patient Portal on the [employer]. Simply click on Health Records under [email or web address] and then click on the [employer] logo. HOW TO SAFELY DISPOSE OF PRESCRIPTION MEDICATIONS Please use one of the following methods to safely dispose of your unused medications. 1.Use a drug disposal kit: the drug disposal pouch allows you to safely discard your old and unuseddrugs. Ask your nurse to give you one when you are discharged.2.Visit a local take-back location: Many local pharmacies and police departments have programs that collect old and unwanted prescriptiondrugs. Call your local pharmacy or go to http://bit.Photo Rankr/5Z3Ce5e to find one close to you.3.Make use of household items: Use cat litter or old coffee grounds to dispose medications if other options arenot available. Mix your drugs with these household products, seal them in an airtight container andthrow it into the garbage. Call [facility]: [phone] to be sure your drugs can be disposed of in this way. Some medicines may require a different approach.4.Never flush your medications down the toilet. IF YOU HAVE BEEN PRESCRIBED AN OPIOIDS FOR PAIN If you have been prescribed an opioid (such as hydrocodone, oxycodone or morphine), it is critical to understand the possible side effects and risks of opioid pain medications. Even when taken as directed, opioids can have several side effects including: Tolerance, meaning you might need to take more of a medication for the same pain relief. Nausea, vomiting and/or constipation. Sleepiness, dizziness, dry mouth, confusion, depression or itching. Physical dependence, meaning you have withdrawal symptoms when a medication is stopped ? this can develop within a few days. KNOW YOUR RESPONSIBILITIES It is important to know exactly how much and how often to take the opioid pain medications you are prescribed. Never take opioids in higher amounts or more often than prescribed. Do not combine opioids with alcohol or other drugs that cause drowsiness, such as benzodiazepines, also known as benzos,including diazepam and alprazolam, muscle relaxants or sleep aids. Never sell or share prescriptionopioids. This is illegal. Store opioids in a secure place and out of reach of others (including children, family, friends and visitors). The last page(s) of this document has been signed and retained as a CHART COPY Signatures Patient Education Materials Cellulitis Skin Infection Medication Leaflets My discharge plan and instructions have been reviewed and explained to me and I,BALJIT HYATT YUSEF understand my current condition and have read and understand these discharge instructions. I have received a written copy of the plan/instructions. If I have questions, I am aware that I should contactmy doctor. 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 It is caused by extra fluid collecting in the tissues. Because of gravity, extra fluid in the body settles to the lowest part. That is why the legs and feet are most affected. You have swelling in a single leg. Some of the causes for swelling in only a single leg include: Infection in the foot or leg Long-term problem with a vein not working well (venous insufficiency) Swollen, twisted vein in the leg (varicose veins) Insect bite or sting on the foot or leg Injury or recent surgery on the foot or leg Blood clot in a deep vein of the leg (deep vein thrombosis or DVT) Inflammation of the joints of the lower leg Medical treatment will depend on what is causing your swelling. Home care Follow these guidelines when caring for yourself at home: Don t wear tight clothing. Keep your legs up while lying or sitting. Take any medicines as directed. If infection, injury, or recent surgery is the cause of your swelling, stay off your legs as much as possible until your symptoms get better. If you have venous insufficiency or varicose veins, don t sit or welding lead burner one place for long periods of time. Take breaks and walk around every few hours. Talk with your healthcare provider about wearing support stockings to help lessen swelling during the day. Wear compression stockings with your doctor's approval Follow-up care Follow up with your healthcare provider as advised. Call 911 Call 911 if any of these occur: Shortness of breath or trouble breathing Chest pain Coughing up blood Fainting or loss of consciousness When to seek medical advice Call your healthcare provider right away if any of these occur: Increased pain, swelling, warmth, or redness of the leg, ankle, or foot Fever of 100.4 F (38 C) or higher, or as directed by your healthcare provider Weakness or dizziness Shaking chills Drenching sweats [id number] The appweevr. [address] [place] [address]. All rights reserved. This information is not intended as a substitute for professional medical care. Always follow yourhealthcare professional's instructions. Follow Up Care 07/20/2023 09:40:30 With:GUADALUPE RUGGIERO MD Address: [address] [place] [phone] When:2-4 days [facility] 04-14-2024 Note* Exam Date Time Procedure Performing Provider Status 07/20/23 11:14 AM VL Venous US/Doppler One Leg (for DVT). Auth (Verified) [facility] 04-14-2024 Note Discharge Instructions Thank you for allowing [facility] to assist you with your healthcare needs. The following is importantdischarge information regarding your hospital visit. Diagnosis from Today's Visit Edema of right lower extremity Leg pain-swelling Lower extremity pain, right What to Do Next Instructions from Your Care Team Go straight to [facility] emergency department will be able to perform vascular studies ofthe right leg to make sure you do not have a blood clot. Discharge ED Outpatient Vascular Lab - Ordered -- Test Requested: right lower extremity doppler, Lower extremity, Right, Test Reason: Edema, Mon-Fri 8am-4:30pm: Call [phone] at 7:30am to schedule a same day appointment for testing. Please beaware there may be a short wait time., Weekend Hol[place]... Post Acute Orders No qualifying data available. You Need to Schedule the Following Appointments Follow Up with GUADALUPE RUGGIERO MD When Within 2-4 days Where: [address] [place] [phone] Allergies aspirin Medications Please ask your primary doctor or pharmacist before taking any other medication not listed, including over the counter drugs, herbal medications, vitamins and or supplements as they may interact withyour home medications. What How Much When Instructions Last Dose Unchanged ammonium lactate topical (Kerasal AL 12% topical lotion) 1 application Topical Every day Unchanged cyclobenzaprine (cyclobenzaprine 10 mg oral tablet) 1 tab(s) by mouth Three (3) times a day as needed for for muscle spasm Duration: 5 Days Unchanged DME (Alcohol Swabs) See instructions 1 box Unchanged DME (Blood Glucose Test Machine) See instructions Device as determined by insurance coverage Unchanged DME (Blood Glucose Test Strips) See instructions Testing blood glucose TID. 1 bottle of 100 strips Unchanged DME (Lancets) See instructions Testing blood glucose TID.1 box Unchanged DME (Pen needles) See instructions Insulin administration 1 times daily qs for 1 month supply Unchanged empagliflozin (Jardiance 10 mg oral tablet) 1 tab(s) by mouth Once a day (in the morning) Unchanged folic acid (folic acid 1 mg oral tablet) 1 tab(s) by mouth Once a day Unchanged furosemide (Lasix 20 mg oral tablet) 1 tab(s) by mouth Once a day take 2 tab daily (40 mg) for 1 week then resume 1 tab (20 mg) daily Unchanged gabapentin (gabapentin 600 mg oral tablet) 1 tab(s) by mouth Three (3) times a day Unchanged glimepiride (glimepiride 2 mg oral tablet) 1 tab(s) by mouth Once a day Unchanged insulin glargine (Lantus Solostar Pen 100 units/ mL 3 mL Pen) 20 unit(s) Subcutaneous Daily at bedtime Unchanged magnesium oxide (magnesium oxide 400 mg oral tablet) TAKE 1 TABLET BY MOUTH TWICE A DAY FOR 7 DAYS Unchanged metoprolol (metoprolol succinate 25 mg oral TABLET extended release) 0.5 tab(s) by mouth Once a day Do not crush or chew (controlled release) Unchanged potassium chloride (potassium chloride 20 mEq oral tablet, extended release) 1 tab(s) by mouth Once a day as needed for none Duration: 7 Days Unchanged rOPINIRole (rOPINIRole 1 mg oral tablet) 1 tab(s) by mouth Three (3) times a day Unchanged sacubitril-valsartan (Entresto 24 mg-26 mg oral tablet) 1 tab(s) by mouth Two (2) times a day Unchanged simvastatin (simvastatin 10 mg oral tablet) Unchanged spironolactone (Aldactone 25 mg oral tablet) 0.5 tab(s) by mouth Once a day with a meal Unchanged thiamine (thiamine 100 mg oral tablet) 1 tab(s) by mouth Once a day Duration: 30 Days Please take this list to your next doctor s visit. Bring all medications you take, including over the counter medications, herbals and other supplements with you to your doctor s visit. Patients and families are reminded to discard old lists and to update any records with all medication providers or retail pharmacies. Education Materials Leg Swelling in a Single Leg Swelling of the arms, feet, ankles, and legs is called edema. It is caused by extra fluid collecting in the tissues. Because of gravity, extra fluid in the body settles to the lowest part. That is why the legs and feet are most affected. You have swelling in a single leg. Some of the causes for swelling in only a single leg include: Infection in the foot or leg Long-term problem with a vein not working well (venous insufficiency) Swollen, twisted vein in the leg (varicose veins) Insect bite or sting on the foot or leg Injury or recent surgery on the foot or leg Blood clot in a deep vein of the leg (deep vein thrombosis or DVT) Inflammation of the joints of the lower leg Medical treatment will depend on what is causing your swelling. Home care Follow these guidelines when caring for yourself at home: Don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 avoid while taking ondansetron? Ondansetron may impair your thinking or reactions. Be careful if you drive or do anything that requires you to be alert. What are the possible side effects of ondansetron? Get emergency medical help if you have signs of an allergic reaction: rash, hives; fever, chills, difficult breathing; swelling of your face, lips, tongue, or throat. Call your doctor at once if you have: severe constipation, stomach pain, or bloating; headache with chest pain and severe dizziness, fainting, fast or pounding heartbeats; fast or pounding heartbeats; jaundice (yellowing of the skin or eyes); blurred vision or temporary vision loss (lasting from only a few minutes to several hours); high levels of serotonin in the body--agitation, hallucinations, fever, fast heart rate, overactivereflexes, nausea, vomiting, diarrhea, loss of coordination, fainting. Common side effects may include: diarrhea or constipation; headache; drowsiness; or tired feeling. This is not a complete list of side effects and others may occur. Call your doctor for medical advice about side effects. You may report side effects to FDA at 6-255-HLF-6349. What other drugs will affect ondansetron? Ondansetron can cause a serious heart problem, especially if you use certain medicines at the same time, including antibiotics, antidepressants, heart rhythm medicine, antipsychotic medicines, and medicines to treat cancer, malaria, HIV or AIDS. Tell your doctor about all medicines you use, and those you start or stop using during your treatment with ondansetron. Taking ondansetron while you are using certain other medicines can cause high levels of serotonin to build up in your body, a condition called 'serotonin syndrome,' which can be fatal. Tell your doctor if you also use: medicine to treat depression; medicine to treat a psychiatric disorder; a narcotic (opioid) medication; or medicine to prevent nausea and vomiting. This list is not complete and many other drugs can interact with ondansetron. This includes prescription and natu-nea-qmsjgnc medicines, vitamins, and herbal products. Give a list of all your medicines to any healthcare provider who treats you. Where can I get more information? Your pharmacist can provide more information about ondansetron. Remember, keep this and all other medicines out of the reach of children, never share your medicines with others, and use this medication only for the indication prescribed. Every effort has been made to ensure that the information provided by [employer] ('[employer]') is accurate, up-to-date, and complete, but no guarantee is made to that effect. Drug information contained herein may be time sensitive. [employer] information has been compiled for use by healthcare practitioners and consumers in the [place] and therefore [employer] does not warrant that uses outside of the [place] are appropriate, unless specifically indicated otherwise. [employer] drug information does not endorse drugs, diagnose patients or recommend therapy. [employer] drug information isan informational resource designed to assist licensed healthcare practitioners in caring for their p atients and/or to serve consumers viewing this service as a supplement to, and not a substitute for, the expertise, skill, knowledge and judgment of healthcare practitioners. The absence of a warningfor a given drug or drug combination in no way should be construed to indicate that the drug or drug combination is safe, effective or appropriate for any given patient. [employer] does not assume any responsibility for any aspect of healthcare administered with the aid of information [employer] provides. The information contained herein is not intended to cover all possible uses, directions, precautions, warnings, drug interactions, allergic reactions, or adverse effects. If you have questions about the drugs you are taking, check with your doctor, nurse or pharmacist. Copyright 7256-5658 [employer]. Version: 16.. Revision Date: 11/07/2022. naproxen (na PROX en) Aleve, Aleve Back and Muscle Pain, Aleve Easy Open Arthritis, Aleve Liquid Gels, Anaprox-DS, EC-Naprosyn, Naprelan, Naprosyn What is the most important information I should know about naproxen? Naproxen can increase your risk of fatal heart attack or stroke. Do not use this medicine just before or after heart bypass surgery (coronary artery bypass graft, or CABG). Naproxen may also cause stomach or intestinal bleeding, which can be fatal. What is naproxen? Naproxen is a nonsteroidal anti-inflammatory drug (NSAID). Naproxen is used to treat pain or inflammation caused by conditions such as arthritis, ankylosing spondylitis, tendinitis, bursitis, gout, or menstrual cramps. The delayed-release or extended-release tablets are slower-acting forms of naproxen that are used only for treating chronic conditions such as arthritis or ankylosing spondylitis. These forms of naproxen will not work fast enough to treat acute pain. Naproxen may also be used for purposes not listed in this medication guide. What should I discuss with my healthcare provider before taking naproxen? Naproxen can increase your risk of fatal heart attack or stroke, even if you don't have any risk factors. Do not use this medicine just before or after heart bypass surgery (coronary artery bypass graft, or CABG). Naproxen may also cause stomach or intestinal bleeding, which can be fatal. These conditions can occur without warning while you are using naproxen, especially in older adults. You should not use naproxen if you are allergic to it, or if you have ever had an asthma attack or severe allergic reaction after taking aspirin or an NSAID. Ask a doctor before giving naproxen to a child younger than 12 years old. Ask a doctor or pharmacist if this medicine is safe to use if you have: heart disease, high blood pressure, high cholesterol, diabetes, or if you smoke; a heart attack, stroke, or blood clot; stomach ulcers or bleeding; asthma; liver or kidney disease; fluid retention; or if you take aspirin to prevent heart attack or stroke. If you are , you should not take naproxen unless your doctor tells you to. Taking an NSAID during the last 20 weeks of can cause serious heart or kidney problems in the unborn baby and possible complications with your . It may not be safe to breastfeed while using this medicine. Ask your doctor about any risk. How should I take naproxen? Use exactly as directed on the label, or as prescribed by your doctor. Use the lowest dose that is effective in treating your condition. Shake the oral suspension (liquid) before you measure a dose. Measure a dose with the supplied measuring device (not a kitchen spoon). Take this medicine with food or milk if it upsets your stomach. Always follow directions on the medicine label about giving this medicine to a child. Naproxen doses are based on weight in children. Your child's dose needs may change if the child gains or loses weight. If you use naproxen long-term, you may need frequent medical tests. This medicine can affect the results of certain medical tests. Tell any doctor who treats you that you are using naproxen. Store at room temperature away from moisture, heat, and light. Keep the bottle tightly closed when not in use. What happens if I miss a dose? Since naproxen is used when needed, you may not be on a dosing schedule. Skip any missed dose if it's almost time for your next dose. Do not use two doses at one time. What happens if I overdose? Seek emergency medical attention or call the Poison Help line at . What should I avoid while taking naproxen? Avoid drinking alcohol. It may increase your risk of stomach bleeding. Avoid taking aspirin or other NSAIDs unless your doctor tells you to. Ask a doctor or pharmacist before using other medicines for pain, fever, swelling, or cold/flu symptoms. They may contain ingredients similar to naproxen (such as aspirin, ibuprofen, or ketoprofen). Ask your doctor before using an antacid, and use only the type your doctor recommends. Some antacids can make it harder for your body to absorb naproxen. What are the possible side effects of naproxen? Get emergency medical help if you have signs of an allergic reaction (runny or stuffy nose, wheezing or trouble breathing, hives, swelling in your face or throat) or a severe skin reaction (fever, sore throat, burning eyes, skin pain, red or purple skin rash with blistering and peeling). Stop using naproxen and seek medical treatment if you have a serious drug reaction that can affect many parts of your body. Symptoms may include skin rash, fever, swollen glands, muscle aches, severeweakness, unusual bruising, or yellowing of your skin or eyes. Get emergency medical help if you have signs of a heart attack or stroke: chest pain spreading to your jaw or shoulder, sudden numbness or weakness on one side of the body, slurred speech, leg swelling, feeling short of breath. Stop using naproxen and call your doctor at once if you have: shortness of breath (even with mild exertion); swelling or rapid weight gain; the first sign of any skin rash or blister, no matter how mild; signs of stomach bleeding--bloody or tarry stools, coughing up blood or vomit that looks like coffee grounds; liver problems--nausea, upper stomach pain, loss of appetite, dark urine, jarad- colored stools, jaundice (yellowing of the skin or eyes); kidney problems--little or no urination, painful urination, swelling in your feet or ankles; or low red blood cells (anemia)--pale skin, unusual tiredness, feeling light-headed or short of breath, cold hands and feet. Common side effects may include: headache; indigestion, heartburn, stomach pain; or flu symptoms; This is not a complete list of side effects and others may occur. Call your doctor for medical advice about side effects. You may report side effects to FDA at 4-319-ANQ-4855. What other drugs will affect naproxen? Ask your doctor before using naproxen if you take an antidepressant. Taking certain antidepressantswith an NSAID may cause you to bruise or bleed easily. Ask a doctor or pharmacist before using naproxen with any other medications, especially: other NSAIDs or salicylates (diflunisal, salsalate); antacids and sucralfate; cholestyramine; cyclosporine; digoxin; lithium; methotrexate; pemetrexed; probenecid; warfarin (Coumadin, Jantoven) or similar blood thinners; a diuretic or 'water pill'; or heart or blood pressure medication. This list is not complete. Other drugs may affect naproxen, including prescription and [id number]-qvy-[id number] medicines, vitamins, and herbal products. Not all possible drug interactions are listed here. Where can I get more information? Your pharmacist can provide more information about naproxen. Remember, keep this and all other medicines out of the reach of children, never share your medicines with others, and use this medication only for the indication prescribed. Every effort has been made to ensure that the information provided by [employer] ('[employer]') is accurate, up-to-date, and complete, but no guarantee is made to that effect. Drug information contained herein may be time sensitive. [employer] information has been compiled for use by healthcare practitioners and consumers in the [place] and therefore [employer] does not warrant that uses outside of the [place] are appropriate, unless specifically indicated otherwise. [employer] drug information does not endorse drugs, diagnose patients or recommend therapy. [employer] drug information isan informational resource designed to assist licensed healthcare practitioners in caring for their p atients and/or to serve consumers viewing this service as a supplement to, and not a substitute for, the expertise, skill, knowledge and judgment of healthcare practitioners. The absence of a warningfor a given drug or drug combination in no way should be construed to indicate that the drug or drug combination is safe, effective or appropriate for any given patient. [employer] does not assume any responsibility for any aspect of healthcare administered with the aid of information [employer] provides. The information contained herein is not intended to cover all possible uses, directions, precautions, warnings, drug interactions, allergic reactions, or adverse effects. If you have questions about the drugs you are taking, check with your doctor, nurse or pharmacist. Copyright 5618-3671 [employer]. Version: 22.01. Revision Date: 11/07/2022. Education Materials Facial Contusion A contusion is another word for a bruise. It happens when small blood vessels break open and leak blood into the nearby area. A facial contusion can result from a bump, hit, or fall. This may happen during sports or an accident. Symptoms of a contusion often include changes in skin color (bruising), swelling, and pain. The swelling from the contusion should decrease in a few days. Bruising and pain may take several weeks to go away. Home care If you have been prescribed medicines for pain, take them as directed. To help reduce swelling and pain, wrap a cold pack or bag of frozen peas in a thin towel. Put it onthe injured area for up to 20 minutes. Do this a few times a day until the swelling goes down. If you have scrapes or cuts on your face requiring stiches or other closures, care for them as directed. For the next 24 hours (or longer if instructed): oDon t drink alcohol, or use sedatives or medicines that make you sleepy. oDon t drive or operate machinery. oDon't do anything strenuous. Don t lift or strain. oDon't return to sports or other activity that could result in another head injury. Note about concussions Because the injury was to your head, it is possible that a concussion (mild brain injury) could result. Symptoms of a concussion can show up later. Be alert for signs and symptoms of a concussion. Seek emergency medical care if any of these develop over the next hours to days: Headache Nausea or vomiting Dizziness Sensitivity to light or noise Unusual sleepiness or grogginess Trouble falling asleep Personality changes Vision changes Memory loss Confusion Trouble walking or clumsiness Loss of consciousness (even for a short time) Inability to be awakened Feeling off or slow as if in a daze Follow-up care Follow up with your healthcare provider, or as directed. When to seek medical advice Call your healthcare provider right away if any of these occur: Swelling or pain that gets worse, not better New swelling or pain Warmth or drainage from the swollen area or from cuts or scrapes Fluid drainage or bleeding from the nose or ears Fever of 100.4 F (38 C) or higher, or as directed by your healthcare provider Call 911 Call 911 if any of the following occur: Repeated vomiting Unusual drowsiness or trouble awakening Fainting or loss of consciousness Seizure Worsening confusion, memory loss, dizziness, headache, behavior, speech, or vision 1182-6217 [employer]. [address] [place] [address]. All rights reserved. This information is not intended as a substitute for professional medical care. Always follow yourhealthcare professional's instructions. Head Injury (Adult) You have a head injury. It does not appear serious at this time. But symptoms of a more serious problem, such as a mild brain injury (concussion) or bruising or bleeding in the brain, may appear later. For this reason, you or someone caring for you will need to watch for the symptoms listed below. Once you re home, also be sure to follow any care instructions you re given. Home care Watch for the following symptoms Seek emergency medical care if you have any of these symptoms over the next hours to days: Headache Nausea or vomiting Dizziness Sensitivity to light or noise Unusual sleepiness or grogginess Trouble falling asleep Personality changes Vision changes Memory loss Confusion Trouble walking or clumsiness Loss of consciousness (even for a short time) Inability to be awakened Stiff neck Weakness or numbness in any part of the body Seizures General care If you were prescribed medicines for pain, use them as directed. Note: Don t take other medicines for pain without talking to your provider first. To help reduce swelling and pain, apply a cold source to the injured area for up to 20 minutes at atime. Do this as often as directed. Use a cold pack or bag of ice wrapped in a thin towel. Never apply a cold source directly to the skin. If you have cuts or scrapes as a result of your head injury, care for them as directed. For the next 24 hours (or longer, if instructed): oDon t drink alcohol or use sedatives or other medicines that make you sleepy. oDon t drive or operate machinery. oDon t do anything strenuous, such as heavy lifting or straining. oLimit tasks that require concentration. This includes reading, using a smartphone or computer, watching TV, and playing video games. oDon t return to sports or other activities that could result in another head injury. Follow-up care Follow up with your healthcare provider, or as directed. If imaging tests were done, they will be reviewed by a doctor. You will be told the results and any new findings that may affect your care. When to seek medical advice Call your healthcare provider right away if any of these occur: Pain doesn t get better or worsens New or increased swelling or bruising Fever of 100.4 F (38 C) or higher, or as directed by your provider Increased redness, warmth, drainage, or bleeding from the injured area Fluid drainage or bleeding from the nose or ears Any depression or bony abnormality in the injured area Persistent confusion or lethargy Bruising behind the ears or bruising around the eyes [id number] [employer] [address] [place] [address]. All rights reserved. This information is not intended as a substitute for professional medical care. Always follow yourhealthcare professional's instructions. Motor Vehicle Accident: General Precautions Strong forces may be involved in a car accident. It is important to watch for any new symptoms thatmay signal hidden injury. It is normal to feel sore and tight in your muscles and back the next day, and not just the musclesyou initially injured. Remember, all the parts of your body are connected, so while initially one area hurts, the next day another may hurt. Also, when you injure yourself, it causes inflammation, which then causes the muscles to tighten up and hurt more. After the initial worsening, it should gradually improve over the next few days. However, more severe pain should be reported. Even without a definite head injury, you can still get a concussion from your head suddenly jerkingforward, backward or sideways when falling. Concussions and even bleeding can still occur, especially if you have had a recent injury or take blood thinner. It is common to have a mild headache and feel tired and even nauseous or dizzy. A motor vehicle accident, even a minor one, can be very stressful and cause emotional or mental symptoms after the event. These may include: General sense of anxiety and fear Recurring thoughts or nightmares about the accident Trouble sleeping or changes in appetite Feeling depressed, sad or low in energy Irritable or easily upset Feeling the need to avoid activities, places or people that remind you of the accident In most cases, these are normal reactions and are not severe enough to get in the way of your usualactivities. These feelings usually go away within a few days, or sometimes after a few weeks. Home care Muscle pain, sprains and strains Even if you have no visible injury, it is not unusual to be sore all over, and have new aches and pains the first couple of days after an accident. Take it easy at first, and don't over do it. Initially, don't try to stretch out the sore spots. If there is a strain, stretching may make it worse. Massage may help relax the muscles without stretching them. You can use an ice pack or cold compress on and off to the sore spots 10 to 20 minutes at a time, as often as you feel comfortable. This may help reduce the inflammation, swelling and pain. You can make an ice pack by wrapping a plastic bag of ice cubes or crushed ice in a thin towel or using a bagof frozen peas or corn. Wound care If you have any scrapes or abrasions, they usually heal within 10 days. It is important to keep theabrasions clean while they first start to heal. However, an infection may occur even with proper care, so watch for early signs of infection such as: oIncreasing redness or swelling around the wound oIncreased warmth of the wound oRed streaking lines away from the wound oDraining pus Medicines Talk to your healthcare provider before taking new medicines, especially if you have other medical problems or are taking other medicines. If you need anything for pain, you can take acetaminophen or ibuprofen, unless you were given a different pain medicine to use. Talk with your healthcare provider before using these medicines if you have chronic liver or kidney disease, or ever had a stomach ulcer or gastrointestinal bleeding, or are taking blood thinner medicines. Be careful if you are given prescription pain medicines, narcotics, or medicine for muscle spasm. They can make you sleepy, dizzy and can affect your coordination, reflexes and judgment. Don't drive or do work where you can injure yourself when taking them. Follow-up care Follow up with your healthcare provider, or as advised. If emotional or mental symptoms last more than 3 weeks, follow up with your healthcare provider. You may have a more serious traumatic stress reaction. There are treatments that can help. If you had a concussion, be sure you or a friend writesdown any instructions if you are still dazed or confused. If X-rays or CT scans were done, you will be notified if there are any concerns that affect your treatment. Call 911 Call 911 if any of these occur: Trouble breathing Confused or difficulty arousing Fainting or loss of consciousness Rapid heart rate Trouble with speech or vision, weakness of an arm or leg or, if one pupil of your eye becomes larger than the other Trouble walking or talking, loss of balance, numbness or weakness in one side of your body, facial droop When to seek medical advice Call your healthcare provider right away if any of the following occur: New or worsening headache or vision problems New or worsening neck, back, abdomen, arm or leg pain Nausea or vomiting Dizziness or vertigo Redness, swelling, or pus coming from any wound [id number] [employer] [address] [place] [address], [place] [address]. All rights reserved. This information is not intended as a substitute for professional medical care. Always follow yourhealthcare professional's instructions. Additional Information VACCINATE! IT SAVES LIVES! Members of the community who have not yet received the COVID-19 vaccine and would like to receive it can visit one of [facility] vaccine clinics. There are many vaccine clinic locations within the [facility]. For locations and available times, please visit [email or web address] It is important to note that some COVID mobile vaccine clinics are held outdoors and may be canceled in rainy or stormy conditions. To learn more about pediatric vaccinations (ages 5-11), we invite you to visit the [employer] webpage. [email or web address] learn more about the COVID-19 vaccine, we invite you to visit the CDC website for a list of frequently asked questions. https://www.cdc.gov/coronavirus/2019-ncov/vaccines/faq.html [employer] Patient Portal Access Instructions: Stay connected with your healthcare team and access your personal medical information anytime with the [employer] Patient Portal. If you would like a full copy of your medical records please contact the [facility] Medical Records Department Friday through Friday between 8a.m. and 4:30p.m. Please follow the directions below to access the portal: 1.Access the email account you provided upon registration to the hospital.2.Look for an invitation email from [facility].3.Open the email and access the invitation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 a blister, to heal. In fact, small injuries can quickly become serious infections that send you to the hospital. Practice self-care to protect your feet and keep them healthy. Take special care These tips can help you care for your feet: Check your feet daily for problems such as swelling, redness, and blisters. Also looks for cracks, dry skin, or numbness. Use a mirror to see the bottoms of your feet. Or, ask for help. Try to check your feet at the same time every day. Manage your diabetes. Check and control your blood sugar. Take all your medicines as prescribed. Call your provider if you have trouble controlling your blood sugar. Don't walk barefoot, even indoors. Always wear socks inside your shoes. Wash your feet with warm water and mild soap. Check the water temperature before putting your foot in the water. Dry well, especially between toes. Don t treat in-grown toenails, corns, or calluses yourself. Talk with your healthcare provider or foot doctor (welding machine operator gas) if you need help trimming your toenails. Ask your welding machine operator gas for a foot careplan. Use moisturizing cream or lotion if you have dry skin. But, don t use it between toes. Don t use heating pads on your feet. If you have nerve damage (neuropathy), you could get a burn and not feel it. Stop smoking. Smoking limits blood flow. It can make it harder for wounds to heal. Don't use sharp blades to trim your nails. Use a nail clipper and file instead. Have regular checkups Foot problems can develop fast. So be sure to follow your healthcare team s schedule for checkups. During office visits, take off your shoes and socks as soon as you get in the exam room. Ask your provider to check your feet for problems. This will make it easier to find and treat small skin irritations before they get worse. Regular checkups can also help keep track of the blood flow and feelingin your feet. You may need to have checkups more often if you have neuropathy. Wear correct footwear Wearing correct footwear is very important. If areas of your feet have been damaged by too much pressure, your healthcare provider may advise changing your footwear. You may need to not wear high heels or tight work boots. Or, your healthcare provider may advise special shoes or inserts. These helpprotect your feet and keep existing problems from getting worse. If you need special footwear, ask your healthcare provider if you qualify for Medicare's custom- molded and extra-depth diabetic shoe and insert program. Make sure shoes and socks fit Any pair of shoes new or old should feel comfortable as soon as you put them on. There shouldn t beany rubbing when you walk. Wear the right shoe for any activity. For instance, a running shoe is meant to keep your feet free from injury while you jog. Buy shoes at the end of the day, when your feet are larger. Check that they provide support without feeling too loose. Check that your socks fit, too. Wear soft, seamless, well-padded socks for activity. Cotton or microfiber socks are best to help to absorb sweat. To protect your feet, don't wear open-toed or open-heeled shoes. Talk with your healthcare team if you have questions about what kinds of shoes and socks are best . Get regular exercise Regular exercise helps blood flow in your feet. It also helps make your feet stronger and more flexible. Gentle exercises such as walking or riding a stationary bike are best. You can also do specialfoot exercises. Talk with your healthcare provider before starting any exercise program. Also tell your provider if any exercise causes pain, redness, or other foot problems. Note: If you have any kind of break in the skin of your foot or ankle, keep the area clean. Then call your healthcare provider. This is especially true if the area doesn t seem to be healing. [phone] The appwe[employer]. [address] [place] [address], [place] [address]. All rights reserved. This information is not intended as a substitute for professional medical care. Always follow yourhealthcare professional's instructions. Additional Information VACCINATE! IT SAVES LIVES! Members of the community who have not yet received the COVID-19 vaccine and would like to receive it can visit one of [facility] vaccine clinics. There are many vaccine clinic locations within the [facility]. For locations and available times, please visit [email or web address]/. It is important to note that some COVID mobile vaccine clinics are held outdoors and may be canceled in rainy or stormy conditions. To learn more about pediatric vaccinations (ages 5-11), we invite you to visit the [facility] webpage. [email or web address] learn more about the COVID-19 vaccine, we invite you to visit the CDC website for a list of frequently asked questions. https://www.cdc.gov/coronavirus/2019-ncov/vaccines/faq.html [facility] Patient Portal Access Instructions: Stay connected with your healthcare team and access your personal medical information anytime with the [email or web address] Patient Portal. If you would like a full copy of your medical records please contact the [facility] Medical Records Department Friday through Friday between 8a.m. and 4:30p.m. Please follow the directions below to access the portal: 1.Access the email account you provided upon registration to the hospital.2.Look for an invitation email from [facility].3.Open the email and access the invitation link: Accept Invitation to [employer] [facility]4.Fill in the required allen to create your account. Sign into [email or web address] with your username and password that you created in the above steps to stay up to date. You can then view a summary of results, a summary of your visits, and the ability to download your summaries to your computer or send the information securely to a physician. Remember that your healthcare information is confidential, so carefully consider who you will allow to register on the [email or web address] Patient Portal for access to your information. You can also access the [employer] Patient Portal on the [facility]. Simply click on Health Records under [email or web address] and then click on the [facility] logo. HOW TO SAFELY DISPOSE OF PRESCRIPTION MEDICATIONS Please use one of the following methods to safely dispose of your unused medications. 1.Use a drug disposal kit: the drug disposal pouch allows you to safely discard your old and unuseddrugs. Ask your nurse to give you one when you are discharged.2.Visit a local take-back location: Many local pharmacies and police departments have programs that collect old and unwanted prescriptiondrugs. Call your local pharmacy or go to [email or web address].Photo [email or web address] to find one close to you.3.Make use of household items: Use cat litter or old coffee grounds to dispose medications if other options arenot available. Mix your drugs with these household products, seal them in an airtight container andthrow it into the garbage. Call [facility]: [phone] to be sure your drugs can be disposed of in this way. Some medicines may require a different approach.4.Never flush your medications down the toilet. IF YOU HAVE BEEN PRESCRIBED AN OPIOIDS FOR PAIN If you have been prescribed an opioid (such as hydrocodone, oxycodone or morphine), it is critical to understand the possible side effects and risks of opioid pain medications. Even when taken as directed, opioids can have several side effects including: Tolerance, meaning you might need to take more of a medication for the same pain relief. Nausea, vomiting and/or constipation. Sleepiness, dizziness, dry mouth, confusion, depression or itching. Physical dependence, meaning you have withdrawal symptoms when a medication is stopped ? this can develop within a few days. KNOW YOUR RESPONSIBILITIES It is important to know exactly how much and how often to take the opioid pain medications you are prescribed. Never take opioids in higher amounts or more often than prescribed. Do not combine opioids with alcohol or other drugs that cause drowsiness, such as benzodiazepines, also known as benzos,including diazepam and alprazolam, muscle relaxants or sleep aids. Never sell or share prescriptionopioids. This is illegal. Store opioids in a secure place and out of reach of others (including children, family, friends and visitors). The last page(s) of this document has been signed and retained as a CHART COPY Signatures Patient Education Materials Diabetic Foot Care Diabetes: Keeping Feet Healthy Medication Leaflets ammonium lactate topical My discharge plan and instructions have been reviewed and explained to me and I,BALJIT HYATT, YUSEF understand my current condition and have read and understand these discharge instructions. I have received a written copy of the plan/instructions. If I have questions, I am aware that I should contactmy doctor. 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 Patient verbalized understanding and is agreeable to the plan. Transferred to [place] at the appointment center for scheduling. Reason for Disposition [1] MODERATE weakness (i.e., interferes with normal activities) AND [2] new- onset or worse than when discharged from hospital [1] Heart failure suspected (e.g., ankle swelling, shortness of breath, weight gain) AND [2] recently in hospital for heart failure Answer Assessment - Initial Assessment Questions 1. MAIN CONCERN OR SYMPTOM: Discoloration of legs orangish, swelling in legs, feet burning bright red, cracks in heels 2. ONSET: 4 days ago discoloration 3. BREATHING DIFFICULTY: Denies 4. UAIFUP-HBYV-GAWCR: Getting worse 5. HOSPITALIZATION: Almost a week 6. DISCHARGE DATE: ? 7. DISCHARGE DOCTOR: Patient unsure- [facility] Admitted to [facility]-transferred to [place] 8. DISCHARGE APPOINTMENT: May- [facility] in [facility] 9. DISCHARGE MEDICINES: Spironolactone 25 mg 1/2 tab every day, Mag Oxide 400 mg 1 Tab every day,Vit B1 100 mg every day,Folic Acid 1 mg every day, Losarten 50 mg every day,Metropolol ER 50 mg 1/2 tab every day, Idckclv11 mg every day 10. WEIGHT - DISCHARGE: Was at 310 on admission, 250 lb at [place] 11. WEIGHT - TARGET: N/A 12. WEIGHT - CURRENT: About 260 now due to swelling 13. OTHER SYMPTOMS: Toes always numb 14. O2 SATURATION MONITOR: Denies Protocols used: Leg Swelling and Lvith-WPAGI-IB, Heart Failure Post- Hospitalization Follow-up Wcon-IFXQE-UF [facility] Miscellaneous Notes* Telephone Encounter - Tatum Medeiros RN - 06/09/2023 1:38 AM EST Reason for Call: passed out/fell twice Patient recently diagnosed with CHF. States he has been falling frequently, sometimes he remembers falling, some times he wakes up on the ground. It occurs when walking and also while on the toilet. States it occurred FridayJune 07 at 1 pm and 5 pm. He still does not feel right He can get up andwalk if he does so slowly and holds on but may pass out/fall at random times. Outcome: Patient advised to call 911 for transport to ER Reason for Disposition Fainted (passed out) History of heart problems (e.g., congestive heart failure, heart attack) Protocols used: Falls and Eymxgjk-HQXLH-CD, Edhidvvd-OSYHK-JI [facility] Hospital Discharge instructions Patient Education 06/06/2023 20:02:27 Hypotension, All Causes Low Blood Pressure (All Causes) A blood pressure reading is made up of 2 numbers There is a top number over a bottom number. The top number is the systolic pressure. The bottom number is the diastolic pressure. A normal blood pressure is a systolic pressure less than 120 over a diastolic pressure less than 80. Low blood pressure (hypotension) is a blood pressure that is less than what is normal for you. Low blood pressure can cause dizziness, lightheadedness, or fainting. Some medicines can cause low blood pressure. They include: High blood pressure pills Water pills (diuretics) Some heart medicines Some antidepressants Pain, anxiety, sedative, and sleeping medicines Other causes include: Dehydration, severe infection, or fever Blood loss, such as bleeding from the stomach or intestines. Heart failure Change in heart rate or rhythm (arrhythmia) A drop in blood pressure from a sudden change in body position, from lying down to standing (orthostatic hypotension) Alcohol or drug intoxication Neurological diseases that impair the autonomic nervous system Treatment will depend on what is causing your low blood pressure. Home care Follow these guidelines when caring for yourself at home: Rest until your symptoms get better. Keep a record of your symptoms and what you were doing when they occurred. Bring the record with you to your next appointment. Be aware of how quickly your blood pressure drops when you become dehydrated, spend a lot of time in the sun, or have low blood sugar. Take measures to prevent blood pressure drops at these times. Follow the treatment plan described by your healthcare provider. Follow-up care Follow up with your healthcare provider, or as advised. When to seek medical advice Call your healthcare provider right away if any of these occur: Dizziness, lightheadedness, or fainting Black or red color in your stools or vomit Shortness of breath or difficulty breathing Chest, shoulder, arm, neck, or upper back pain Abdominal pain Diarrhea or vomiting that doesn t go away You aren t able to eat or drink Fever of 100.4 F (38 C) or higher, or as directed by your healthcare provider Burning when you urinate Foul-smelling urine [id number] [employer]. [address] [place] [address], [place] [address]. All rights reserved. This information is not intended as a substitute for professional medical care. Always follow yourhealthcare professional's instructions. 06/06/2023 20:01:53 Hypotension, All Causes Low Blood Pressure (All Causes) A blood pressure reading is made up of 2 numbers There is a top number over a bottom number. The top number is the systolic pressure. The bottom number is the diastolic pressure. A normal blood pressure is a systolic pressure less than 120 over a diastolic pressure less than 80. Low blood pressure (hypotension) is a blood pressure that is less than what is normal for you. Low blood pressure can cause dizziness, lightheadedness, or fainting. Some medicines can cause low blood pressure. They include: High blood pressure pills Water pills (diuretics) Some heart medicines Some antidepressants Pain, anxiety, sedative, and sleeping medicines Other causes include: Dehydration, severe infection, or fever Blood loss, such as bleeding from the stomach or intestines. Heart failure Change in heart rate or rhythm (arrhythmia) A drop in blood pressure from a sudden change in body position, from lying down to standing (orthostatic hypotension) Alcohol or drug intoxication Neurological diseases that impair the autonomic nervous system Treatment will depend on what is causing your low blood pressure. Home care Follow these guidelines when caring for yourself at home: Rest until your symptoms get better. Keep a record of your symptoms and what you were doing when they occurred. Bring the record with you to your next appointment. Be aware of how quickly your blood pressure drops when you become dehydrated, spend a lot of time in the sun, or have low blood sugar. Take measures to prevent blood pressure drops at these times. Follow the treatment plan described by your healthcare provider. Follow-up care Follow up with your healthcare provider, or as advised. When to seek medical advice Call your healthcare provider right away if any of these occur: Dizziness, lightheadedness, or fainting Black or red color in your stools or vomit Shortness of breath or difficulty breathing Chest, shoulder, arm, neck, or upper back pain Abdominal pain Diarrhea or vomiting that doesn t go away You aren t able to eat or drink Fever of 100.4 F (38 C) or higher, or as directed by your healthcare provider Burning when you urinate Foul-smelling urine [id number] [employer] [address] [place] [address], [place] [address]. All rights reserved. This information is not intended as a substitute for professional medical care. Always follow yourhealthcare professional's instructions. Follow Up Care 06/06/2023 16:37:47 With:Go to emergency room if symptoms worsen Address:Unknown When:2-4 days With:GUADALUPE RUGGIERO MD Address: [address] [place] [phone] When:2-4 days [facility] 03-01-2024 Emergency department Discharge summary Discharge Instructions Thank you for allowing [facility] to assist you with your healthcare needs. The following is importantdischarge information regarding your hospital visit. Diagnosis from Today's Visit Altered mental status Hypotension Right shoulder pain Shoulder pain What to Do Next Instructions from Your Care Team Please return back to the emergency department for worsening symptoms. Please follow-up with cardiology in the next day. No qualifying data available. Post Acute Orders No qualifying data available. You Need to Schedule the Following Appointments Follow Up with Go to emergency room if symptoms worsen When Within 2-4 days Follow Up with GUADALUPE RUGGIERO MD When Within 2-4 days Where: [address] [place] [phone] Allergies aspirin Medications Please ask your primary doctor or pharmacist before taking any other medication not listed, including over the counter drugs, herbal medications, vitamins and or supplements as they may interact withyour home medications. What How Much When Instructions Last Dose Unchanged cyclobenzaprine (cyclobenzaprine 10 mg oral tablet) 1 tab(s) by mouth Three (3) times a day as needed for for muscle spasm Duration: 5 Days Unchanged DME (Alcohol Swabs) See instructions 1 box Unchanged DME (Blood Glucose Test Machine) See instructions Device as determined by insurance coverage Unchanged DME (Blood Glucose Test Strips) See instructions Testing blood glucose TID. 1 bottle of 100 strips Unchanged DME (Lancets) See instructions Testing blood glucose TID.1 box Unchanged DME (Pen needles) See instructions Insulin administration 1 times daily qs for 1 month supply Unchanged empagliflozin (Jardiance 10 mg oral tablet) 1 tab(s) by mouth Once a day (in the morning) Unchanged folic acid (folic acid 1 mg oral tablet) 1 tab(s) by mouth Once a day Unchanged furosemide (Lasix 20 mg oral tablet) 1 tab(s) by mouth Once a day take 2 tab daily (40 mg) for 1 week then resume 1 tab (20 mg) daily Unchanged gabapentin (gabapentin 600 mg oral tablet) 1 tab(s) by mouth Three (3) times a day Unchanged glimepiride (glimepiride 2 mg oral tablet) 1 tab(s) by mouth Once a day Unchanged insulin glargine (Lantus Solostar Pen 100 units/ mL 3 mL Pen) 20 unit(s) Subcutaneous Daily at bedtime Unchanged magnesium oxide (magnesium oxide 400 mg oral tablet) 1 tab(s) by mouth Two (2) times a day Duration: 7 Days Unchanged metFORMIN (MetFORMIN (Eqv-Fortamet) 1000 mg oral tablet, EXTENDED RELEASE) 1 tab(s) by mouth Two (2) times a day Unchanged metoprolol (metoprolol succinate 25 mg oral TABLET extended release) 0.5 tab(s) by mouth Once a day Duration: 30 Days Do not crush or chew (controlled release) Unchanged potassium chloride (potassium chloride 20 mEq oral tablet, extended release) 1 tab(s) by mouth Once a day as needed for none Duration: 7 Days Unchanged rOPINIRole (rOPINIRole 1 mg oral tablet) 1 tab(s) by mouth Three (3) times a day Unchanged sacubitril-valsartan (Entresto 24 mg-26 mg oral tablet) 1 tab(s) by mouth Two (2) times a day Unchanged simvastatin (simvastatin 10 mg oral tablet) Unchanged spironolactone (Aldactone 25 mg oral tablet) 0.5 tab(s) by mouth Once a day with a meal Unchanged thiamine (thiamine 100 mg oral tablet) 1 tab(s) by mouth Once a day Duration: 30 Days Please take this list to your next doctor s visit. Bring all medications you take, including over the counter medications, herbals and other supplements with you to your doctor s visit. Patients and families are reminded to discard old lists and to update any records with all medication providers or retail pharmacies. Education Materials Low Blood Pressure (All Causes) A blood pressure reading is made up of 2 numbers There is a top number over a bottom number. The top number is the systolic pressure. The bottom number is the diastolic pressure. A normal blood pressure is a systolic pressure less than 120 over a diastolic pressure less than 80. Low blood pressure (hypotension) is a blood pressure that is less than what is normal for you. Low blood pressure can cause dizziness, lightheadedness, or fainting. Some medicines can cause low blood pressure. They include: High blood pressure pills Water pills (diuretics) Some heart medicines Some antidepressants Pain, anxiety, sedative, and sleeping medicines Other causes include: Dehydration, severe infection, or fever Blood loss, such as bleeding from the stomach or intestines. Heart failure Change in heart rate or rhythm (arrhythmia) A drop in blood pressure from a sudden change in body position, from lying down to standing (orthostatic hypotension) Alcohol or drug intoxication Neurological diseases that impair the autonomic nervous system Treatment will depend on what is causing your low blood pressure. Home care Follow these guidelines when caring for yourself at home: Rest until your symptoms get better. Keep a record of your symptoms and what you were doing when they occurred. Bring the record with you to your next appointment. Be aware of how quickly your blood pressure drops when you become dehydrated, spend a lot of time in the sun, or have low blood sugar. Take measures to prevent blood pressure drops at these times. Follow the treatment plan described by your healthcare provider. Follow-up care Follow up with your healthcare provider, or as advised. When to seek medical advice Call your healthcare provider right away if any of these occur: Dizziness, lightheadedness, or fainting Black or red color in your stools or vomit Shortness of breath or difficulty breathing Chest, shoulder, arm, neck, or upper back pain Abdominal pain Diarrhea or vomiting that doesn t go away You aren t able to eat or drink Fever of 100.4 F (38 C) or higher, or as directed by your healthcare provider Burning when you urinate Foul-smelling urine [id number] [employer]. [address] [place] [address], [place] [address]. All rights reserved. This information is not intended as a substitute for professional medical care. Always follow yourhealthcare professional's instructions. Low Blood Pressure (All Causes) A blood pressure reading is made up of 2 numbers There is a top number over a bottom number. The top number is the systolic pressure. The bottom number is the diastolic pressure. A normal blood pressure is a systolic pressure less than 120 over a diastolic pressure less than 80. Low blood pressure (hypotension) is a blood pressure that is less than what is normal for you. Low blood pressure can cause dizziness, lightheadedness, or fainting. Some medicines can cause low blood pressure. They include: High blood pressure pills Water pills (diuretics) Some heart medicines Some antidepressants Pain, anxiety, sedative, and sleeping medicines Other causes include: Dehydration, severe infection, or fever Blood loss, such as bleeding from the stomach or intestines. Heart failure Change in heart rate or rhythm (arrhythmia) A drop in blood pressure from a sudden change in body position, from lying down to standing (orthostatic hypotension) Alcohol or drug intoxication Neurological diseases that impair the autonomic nervous system Treatment will depend on what is causing your low blood pressure. Home care Follow these guidelines when caring for yourself at home: Rest until your symptoms get better. Keep a record of your symptoms and what you were doing when they occurred. Bring the record with you to your next appointment. Be aware of how quickly your blood pressure drops when you become dehydrated, spend a lot of time in the sun, or have low blood sugar. Take measures to prevent blood pressure drops at these times. Follow the treatment plan described by your healthcare provider. Follow-up care Follow up with your healthcare provider, or as advised. When to seek medical advice Call your healthcare provider right away if any of these occur: Dizziness, lightheadedness, or fainting Black or red color in your stools or vomit Shortness of breath or difficulty breathing Chest, shoulder, arm, neck, or upper back pain Abdominal pain Diarrhea or vomiting that doesn t go away You aren t able to eat or drink Fever of 100.4 F (38 C) or higher, or as directed by your healthcare provider Burning when you urinate Foul-smelling urine [id number] The [employer]. [address] [place] [address], [place] [address]. All rights reserved. This information is not intended as a substitute for professional medical care. Always follow yourhealthcare professional's instructions. Additional Information VACCINATE! IT SAVES LIVES! Members of the community who have not yet received the COVID-19 vaccine and would like to receive it can visit one of [facility] vaccine clinics. There are many vaccine clinic locations within the [facility]. For locations and available times, please visit www.[email or web address] [email or web address] It is important to note that some COVID mobile vaccine clinics are held outdoors and may be canceled in rainy or stormy conditions. To learn more about pediatric vaccinations (ages 5-11), we invite you to visit the [facility] [facility] webpage. [email or web address] learn more about the COVID-19 vaccine, we invite you to visit the CDC website for a list of frequently asked questions. https://www.cdc.gov/coronavirus/2019-ncov/vaccines/faq.html [facility] [employer] [facility] Patient Portal Access Instructions: Stay connected with your healthcare team and access your personal medical information anytime with the [employer] Patient Portal. If you would like a full copy of your medical records please contact the [facility] Medical Records Department Friday through Friday between 8a.m. and 4:30p.m. Please follow the directions below to access the portal: 1.Access the email account you provided upon registration to the hospital.2.Look for an invitation email from [facility].3.Open the email and access the invitation link: Accept Invitation to [facility]4.Fill in the required allen to create your account. Sign into [email or web address] with your username and password that you created in the above steps to stay up to date. You can then view a summary of results, a summary of your visits, and the ability to download your summaries to your computer or send the information securely to a physician. Remember that your healthcare information is confidential, so carefully consider who you will allow to register on the [employer] Patient Portal for access to your information. You can also access the [employer] [facility] Patient Portal on the [employer] lazaro. Simply click on Health Records under [email or web address] and then click on the [employer] logo. HOW TO SAFELY DISPOSE OF PRESCRIPTION MEDICATIONS Please use one of the following methods to safely dispose of your unused medications. 1.Use a drug disposal kit: the drug disposal pouch allows you to safely discard your old and unuseddrugs. Ask your nurse to give you one when you are discharged.2.Visit a local take-back location: Many local pharmacies and police departments have programs that collect old and unwanted prescriptiondrugs. Call your local pharmacy or go to http://MailLift.Photo Rankr/6R3Ob8y to find one close to you.3.Make use of household items: Use cat litter or old coffee grounds to dispose medications if other options arenot available. Mix your drugs with these household products, seal them in an airtight container andthrow it into the garbage. Call [facility]: [phone] to be sure your drugs can be disposed of in this way. Some medicines may require a different approach.4.Never flush your medications down the toilet. IF YOU HAVE BEEN PRESCRIBED AN OPIOIDS FOR PAIN If you have been prescribed an opioid (such as hydrocodone, oxycodone or morphine), it is critical to understand the possible side effects and risks of opioid pain medications. Even when taken as directed, opioids can have several side effects including: Tolerance, meaning you might need to take more of a medication for the same pain relief. Nausea, vomiting and/or constipation. Sleepiness, dizziness, dry mouth, confusion, depression or itching. Physical dependence, meaning you have withdrawal symptoms when a medication is stopped ? this can develop within a few days. KNOW YOUR RESPONSIBILITIES It is important to know exactly how much and how often to take the opioid pain medications you are prescribed. Never take opioids in higher amounts or more often than prescribed. Do not combine opioids with alcohol or other drugs that cause drowsiness, such as benzodiazepines, also known as benzos,including diazepam and alprazolam, muscle relaxants or sleep aids. Never sell or share prescriptionopioids. This is illegal. Store opioids in a secure place and out of reach of others (including children, family, friends and visitors). The last page(s) of this document has been signed and retained as a CHART COPY Signatures Patient Education Materials Hypotension, All Causes Hypotension, All Causes Medication Leaflets My discharge plan and instructions have been reviewed and explained to me and I,BALJIT HYATT AMATO understand my current condition and have read and understand these discharge instructions. I have received a written copy of the plan/instructions. If I have questions, I am aware that I should contactmy doctor. 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 Pt alert, oriented, and ambulatory independently. Digitally Signed by Cassidy Riggs RN on 06/06/2023 08:04 PM [facility]03-01-2024 Note ORIGINAL EXAMINATION: ONE XRAY VIEW OF THE CHEST 06/06/2023 6:07 pm COMPARISON: Chest x-ray 05/31/2023 HISTORY: ORDERING SYSTEM PROVIDED HISTORY: Reason for Exam: chest pain FINDINGS: Stable cardiomediastinal silhouette. No focal consolidation, vascular congestion, pleural effusion or pneumothorax. No acute osseous abnormality. IMPRESSION: No acute radiographic abnormality. I have personally reviewed the images of this examination and agree with the resident's findings and interpretation. Interpreted by: Tae Stewart Preliminary Report By: Nica Rosas Electronically signed By Tae Stewart Dictated Date: 06/06/2023 6:09:23 PM Prelim Date: 06/06/2023 6:10:20 PM Sign Date: 06/06/2023 6:24:05 PM Ordering Provider: [facility]03-01-2024 Note ORIGINAL EXAMINATION: TWO XRAY VIEWS OF THE RIGHT SHOULDER 06/06/2023 6:08 pm COMPARISON: Chest x-ray same date, chest x-ray 05/31/2023 HISTORY: ORDERING SYSTEM PROVIDED HISTORY: Reason for Exam: pain FINDINGS: No acute fracture or dislocation. No lytic or sclerotic osseous lesion. The visualized thoracic osseous structures appear intact. Degenerative changes of the AC joint. The right lung is clear. No acute soft tissue abnormality. IMPRESSION: No acute osseous abnormality. Degenerative changes of the AC joint. I have personally reviewed the images of this examination and agree with the resident's findings and interpretation. Interpreted by: Tae Stewart Preliminary Report By: Nica Rosas Electronically signed By Tae Stewart Dictated Date: 06/06/2023 6:10:32 PM Prelim Date: 06/06/2023 6:12:24 PM Sign Date: 06/06/2023 6:24:35 PM Ordering Provider: KULDEEP [facility]03-01-2024 Note ORIGINAL EXAMINATION: CT OF THE HEAD WITHOUT CONTRAST06/06/2023 6:[address] HEAD/BRAIN WITHOUT CONTRAST EXAM DESCRIPTION: TECHNIQUE: CT of the head was performed without the administration of intravenous contrast. Automated exposure control, iterative reconstruction, and/or weight based adjustment of the mA/kV was utilized to reduce the radiation dose to as low as reasonably achievable. COMPARISON: None available HISTORY: ORDERING SYSTEM PROVIDED HISTORY: Reason for Exam: pain/headache FINDINGS: The size, density, and morphology of the brain and CSF containing spaces appears normal. There is no evidence of mass, midline shift, hemorrhage, or infract. The ventricles, cortical sulci, and subarachnoid cisterns appear unremarkable. There are no extra-axial fluid collections. No regions of pathologic attenuation are evident. Regions of the orbits and paranasal sinuses included within the field of view are unremarkable. . There is no displaced fracture or osseous neoplasm. The extracalvarial soft tissues appear unremarkable. IMPRESSION: No acute intracranial pathology. COMMENT: Changes resultant from ischemia (even significant ischemia) may often be inapparent on CT exam, particularly if imaged early. Additionally, early changes due to neoplastic or inflammatory processes can be subtle to the extent that they are not prospectively noted. Therefore, if symptoms persist, or clinical suspicion for pathology remains, further evaluation may be obtained with MRI. Interpreted by: Christiane Juan MD Preliminary Report By: Christiane Juan MD Electronically signed By Christiane Juan MD Dictated Date: 06/06/2023 6:02:08 PM Prelim Date: 06/06/2023 6:02:34 PM Sign Date: 06/06/2023 6:02:34 PM Ordering Provider: KULDEEP [facility]03-01-2024 NoteSinus rhythm Right bundle branch block Electronic Signature: KULDEEP BRADLEY MD 06/06/2023 17:03:45[facility] 02-22-2024 Nurse Progress note Patient c/o DURAN and this nurse gave Tylenol per prn order. F/U with patient states no relief. This nurse contacted the IOS PROGRAMMER and stated that patient started with c/o after Nitro paste applied. IOS PROGRAMMER states we can take Nitro paste off and change order to prn sublingual nitro. Pt notified and same done. Will continue to monitor. Digitally Signed by Bette Loza RN on 05/29/2023 03:34 PM [facility]02-22-2024 Evaluation + Plan noteExtracted from: Title:History and Physical Author:SILVANO DODSON APRN-J2EE CONSULTANT Date:05/29/23 1. Elevated brain natriureti c peptide (BNP) level Acute, new onset. Patient saw [facility] cardiology on 05/20 due to ongoing complaint of lower extremity edema and shortness of breath. An echocardiogram was ordered but not done yet. 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 Patient was taking Lasix 20 mg oral daily but did not feel that it was doing anything for the lower extremity edema. Will obtain echocardiogram today. Continue furosemide 20 mg IV BID. Strict I&O's, daily weights, and low sodium diet. Repeat CBC, BNP and BMP in the am. Echo back showing EF 20% +/- 5%, diastolic dysfunction and diffuse hypokinesis. Consult placed to cardiology for recommendation. 2. COPD (chronic obstructive pulmonary disease) Chronic, not in exacerbation. Continue duoneb PRN for shortness of breath/wheezing. 3. Diabetes mellitus type 2 Chronic, uncontrolled. HgbA1c 10.2%. Blood sugar checks before meals and at bedtime. Cover with corrective sliding scale insulin. ADA diet. Blood sugar goal of 180 or less and avoid hypoglycemia. 4. Hypertension Chronic. Continue current antihypertensives. SBP goal of 140 or less. hematuria - send urine for urinalysis, C&S if indicated. DVT prophylaxis with Lovenox sc. Code status: Full Code. Labs, diagnostic test and progress notes reviewed as noted in HPI. Plan of care discussed with patient. All questions answered. Patient verbalizes understanding and is agreeable with plan of care. This case was discussed with collaborating physician, Dr. Fernanda Penaloza. 75 minutes spent reviewing past diagnostic tests, reviewing lab results, vital sign trends, medical history, reviewing medications and ordering home medications, examining patient, discussing plan of care with nursing and cardiology IOS PROGRAMMER, collaborating with physician, and documenting in chart. Future Appointments Appointment Date:06/02/2023 01:00:00 PM Scheduled Provider: Location:[facility] Appointment Type:Echo - Echocardiogram Adult [facility] 02-22-2024 Note* Exam Date Time Procedure Performing Provider Status 05/29/23 9:48 AM Echocardiogram, Adult - CV Auth (Verified) [facility] 02-22-2024 Note Date of Service 05/29/2023 Chief Complaint Presents with c/o BLE pain and swelling, ABD swelling and SOB x3 weeks. States hx of CHF. Recently saw cardiology and states had a dose change for lasix and BP med change. Echo scheduled for 06/02. History of Present Illness Patient is a 57-year-old male, who follows with Dr. Guadalupe Ruggiero with a past medical history significant for type 2 diabetes, hypertension, hyperlipidemia, and neuropathy, presents to [facility] emergency department with the chief complaint of lower extremity pain and swelling, abdominal bloating and dyspnea for about 3 weeks. Patient was seen 04/25 and 05/15 in the ED for the same complaint and was referred to cardiology. He was seen by Dr. Graciela Hawkins, [facility] process excellence manager, on 05/20 who started a workup for congestive heart failure and suspected alcohol cardiomyopathy. Patient was scheduled for echocardiogram this coming Friday. Patient had been started on furosemide 20 mg oral daily but did not feel that this was helping his edema or dyspnea so presented again to the ED. Patient adds that he has had intermittent chest pain in the left side of his chest the last few days. It has been about a year since he last had the chest discomfort. He had a heart cath last in 12/2021 which was negative for disease and was told the chest pain is likely musculoskeletal. Patient statesthat nothing makes the chest pain better or worse but reports that it did improve after nitropaste was placed on patient last night. Patient states that he cannot walk out to get the mail but this ismainly secondary to the leg pain/swelling and not so much the shortness of breath. He denies any fever, chills, cough, abdominal pain, nausea or dysuria. In the emergency department, chest x-ray revealed mild diffuse interstitial and vascular prominenceand bilateral pleural fluid suspicious for pulmonary edema/congestion. Superimposed infectious process is not excluded. EKG revealed sinus tachycardia with right bundle branch block. CBC was unremarkable. BMP significant for glucose 312 and sodium 133. BNP 8864. Troponin negative x 2. Patient was administered 20 mg Lasix IV and 20 mg labetalol IV in the ED. The case was discussed with the ED physician who recommended admission due volume overload. Patient was transferred to telemetry for observation. We will consult cardiology for recommendation. We will send patient for echocardiogram this mo rning. We will continue furosemide 20 mg IV BID. Monitor strict I&Os and daily weights. Start low sodium diet. Repeat CBC and BMP in the am. Patient seen and evaluated this morning while resting in bed. He appears to be in no acute distressand currently denies any shortness of breath or chest pain. He states that he feels the volume overload mainly in his legs and abdomen. He does have some lower extremity edema, 2+ pitting. Discussed plan of care with patient - echocardiogram and IV diuresis today. Will plan on discharge today or tomorrow depending on the results of the echocardiogram and his response to the diuretics. He does notfeel that his legs have improved much since admission. He reports that he does have neuropathy in both legs. Patient reports that he does drink beer and estimates about 3 - 24 oz cans of beer each day on Friday and Friday. All questions answered. Review of Systems Review of Systems: Reviewed in detail, including general health, HEENT, cardiovascular, respiratory, gastrointestinal, genitourinary, endocrine, musculoskeletal, neurologic, vascular, skin, and psychiatric. All are negative except for those listed in the History of Present Illness. Physical Exam Vitals and Measurements T: 35.6 C (Oral) TMIN: 35.6 C (Oral) TMAX: 37.3 C (Temporal Artery) HR: 91 RR: 18 BP: 140/96 SpO2: 94% HT: 182.9 cm WT: 129.3 kg BMI: 38.65 Weight Dosing Weight: 129.3 kg (05/29/23) Dosing Weight: 120.5 kg (05/28/23) General: No acute distress. Patient is alert, chronically ill-appearing. Skin: No rash. Skin is warm, dry. Skin crack noted over left great toe, left and right heals. HEENT: Head is normocephalic, atraumatic. Pupils are equal, round and reactive. Neck: Supple. No lymphadenopathy, thyromegaly. Lungs: Bilaterally clear but diminished without crepitation or wheeze. Unlabored. Heart: Heart is regular rhythm, S1, S2. No murmurs, gallops or rubs. Abdomen: Abdomen is soft, nontender, obese. Bowels sounds present in all quadrants. Extremities: No clubbing, cyanosis; 2+ pitting edema noted in bilateral lower extremities. Peripheral pulses palpable. No calf tenderness. Neurological: Patient is awake and alert to person, place and time. Following simple commands, moving all extremities. Lab Results 05/29 05:12 Glucose Level: 198 H Sodium Level: 135 L Potassium Level: 4.7 BUN: 15 Creatinine Lvl (s): 1.26 05/28 23:04 WBC: 5.7 Hgb: 14.5 Hct: 43.5 Platelet: 175 Neutrophil %: 73.6 Glucose Level: 312 H Sodium Level: 133 L Potassium Level: 4.8 BUN: 15 Creatinine Lvl (s): 1.22 Imaging Results and Diagnostics .radimp XR Chest 1 View Result Date: May 28, 2023 Verified By: SUDHAKAR JEFFERSON MD CLINICAL STATEMENT: IMPRESSION: Mild diffuse interstitial and vascular prominence and bilateral pleural fluid suspicious for pulmonary edema/congestion. Superimposed infectious process is not excluded. I have personallyreviewed the images of this examination and agree with the resident's findings and interpretation. Assessment/Plan 1. Elevated brain natriuretic peptide (BNP) level Acute, new onset. Patient saw [facility] cardiology on 05/20 due to ongoing complaint of lower extremity edema and shortness of breath. An echocardiogram was ordered but not done yet. 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 Patient was taking Lasix 20 mg oral daily but did not feel that it was doing anything for the lower extremity edema. Will obtain echocardiogram today. Continue furosemide 20 mg IV BID. Strict I&O's, daily weights, and low sodium diet. Repeat CBC, BNP and BMPin the am. Echo back showing EF 20% +/- 5%, diastolic dysfunction and diffuse hypokinesis. Consult placed to cardiology for recommendation. 2. COPD (chronic obstructive pulmonary disease) Chronic, not in exacerbation. Continue duoneb PRN for shortness of breath/wheezing. 3. Diabetes mellitus type 2 Chronic, uncontrolled. HgbA1c 10.2%. Blood sugar checks before meals and at bedtime. Cover with corrective sliding scale insulin. ADA diet. Blood sugar goal of 180 or less and avoid hypoglycemia. 4. Hypertension Chronic. Continue current antihypertensives. SBP goal of 140 or less. hematuria - send urine for urinalysis, C&S if indicated. DVT prophylaxis with Lovenox sc. Code status: Full Code. Labs, diagnostic test and progress notes reviewed as noted in HPI. Plan of care discussed with patient. All questions answered. Patient verbalizes understanding and is agreeable with plan of care. This case was discussed with collaborating physician, Dr. Fernanda Penaloza. 75 minutes spent reviewing past diagnostic tests, reviewing lab results, vital sign trends, medicalhistory, reviewing medications and ordering home medications, examining patient, discussing plan ofcare with nursing and cardiology IOS PROGRAMMER, collaborating with physician, and documenting in chart. Problem List/Past Medical History Ongoing No qualifying data Historical No qualifying data Procedure/Surgical History Cardiac catheter: 12/07/21 Medications Home Medications (11) Active cephalexin 500 mg oral capsule 500 mg = 1 cap(s), Oral, QID cyclobenzaprine 10 mg oral tablet 10 mg = 1 tab(s), PRN, Oral, TID gabapentin 600 mg oral tablet 600 mg = 1 tab(s), Oral, TID glimepiride 2 mg oral tablet 2 mg = 1 tab(s), Oral, qDay indomethacin 50 mg oral capsule 50 mg = 1 cap(s), PRN, Oral, TIDM Lasix 20 mg oral tablet 20 mg = 1 tab(s), Oral, qDay losartan 50 mg oral tablet 50 mg = 1 tab(s), Oral, qDay MetFORMIN (Eqv-Fortamet) 1000 mg oral tablet, EXTENDED RELEASE 1,000 mg = 1 tab(s), Oral, BID potassium chloride 10 mEq oral capsule, extended release 10 mEq = 1 cap(s), Oral, qDay rOPINIRole 1 mg oral tablet 1 mg = 1 tab(s), Oral, TID simvastatin 10 mg oral tablet Allergies aspirin Social History Alcohol Use: Current. Type: Beer. Frequency: 1-2 times per week., 04/03/2021 Substance Abuse Use: denies., 04/03/2021 Tobacco Nicotine Use: I chew. Type: Oral (Snuff, Chew)., 05/15/2023 Immunizations No qualifying data available. Code Status Code Status - Ordered -- 05/29/23 0:12:00 EST, Full Code, Constant Order Digitally Signed by SILVANO DODSON on 05/29/2023 12:03 PM Digitally Signed by SILVANO DODSON on 05/29/2023 01:13 PM [facility]02-22-2024 NoteSinus rhythm Ventricular premature complex Right bundle branch block Inferior infarct, old WARNING: DATA QUALITY MAY AFFECT INTERPRETATION Electronic Signature: GRISEL WALKER MD 05/29/2023 21:27:58[facility] 02-22-2024 Hospital Discharge instructions Follow Up Care 05/28/2023 22:46:53 With:GUADALUPE RUGGIERO MD Address: [address] [place] [phone] When: Unknown [facility] 02-21-2024 Note ORIGINAL EXAMINATION: ONE XRAY VIEW OF THE CHEST 05/28/2023 11:45 pm COMPARISON: Chest x-ray 05/15/2023 HISTORY: ORDERING SYSTEM PROVIDED HISTORY: Reason for Exam: chest pain FINDINGS: Cardiomediastinal silhouette is stable. Mild diffuse interstitial and vascular prominence. Bilateral pleural fluid. No pneumothorax. Stable osseous structures. IMPRESSION: Mild diffuse interstitial and vascular prominence and bilateral pleural fluid suspicious for pulmonary edema/congestion. Superimposed infectious process is not excluded. I have personally reviewed the images of this examination and agree with the resident's findings and interpretation. Interpreted by: Sudhakar Jefferson Preliminary Report By: Osmin Esteban Electronically signed By Sudhakar Jefferson Dictated Date: 05/28/2023 11:49:11 PM Prelim Date: 05/28/2023 11:51:26 PM Sign Date: 05/29/2023 12:06:04 AM [facility] NoteSinus tachycardia Right bundle branch block Electronic Signature: KULDEEP BRADLEY MD 05/28/2023 23:15:56[facility] 02-08-2024 Hospital Discharge instructions Patient Education 05/15/2023 20:10:48 Heart Failure, Congestive (CHF) Left- or Right- Side Congestive Heart Failure (CHF) The heart is a large muscle that acts as a pump to circulate blood throughout the body. Blood carries oxygen to all of the organs, including the brain, muscles, and skin. After your body takes the oxygen out of the blood, the blood returns to the heart. The right side of the heart collects the blood from the body and pumps it to the lungs. In the lungs, it gets fresh oxygen and gives up carbon dioxide. The oxygen-rich blood from the lungs then returns to the left side of the heart, where it is pumped back out to the rest of your body, starting the process all over. Congestive heart failure (CHF) occurs when the heart muscle does not function normally, leading to fluid retention or reduces blood flow. This can be caused by heart muscle weakness or stiffness, or a heart valve problem. Heart failure can affect the right side of the heart or the left side. But heart failure may affect not only the right side of the heart or only the left side. Although it may have started on one side, it can and often eventually does affect both sides. Right-side heart failure When the right side of the heart is failing, it can t handle the blood it is getting from the rest of the body. This blood returns to the heart through veins. When too much pressure builds up in the veins, fluid leaks out into the tissues. [place] then causes that fluid to move to those parts of the body that are the lowest. So one of the first symptoms of right-side CHF can include swelling in the feet and ankles. If the condition gets worse, the swelling can even go up past the knees. Sometimes it gets so severe, the liver and intestines can get congested as well. Left-side heart failure When the left side of the heart is failing, it can t handle the blood it gets from the lungs. Pressure then builds up in the veins of the lungs, causing fluid to leak into the lung tissues. This may cause CHF and pulmonary edema. This causes you to feel short of breath, weak, or dizzy. These symptoms are often worse with exertion, such as when climbing stairs or walking up hills. Lying with your head flat is uncomfortable and can make your breathing worse. This may make sleeping difficult. You may need to use extra pillows to elevate your upper body to sleep well. The same is true when just resting during the daytime. You may also feel weak or tired and have less energy during exertion. There are many causes of heart failure including: Coronary artery disease Past heart attack (also known as acute myocardial infarction, or AMI) High blood pressure Damaged heart valve Diabetes Obesity Cigarette smoking Alcohol abuse Heart failure is usually a chronic condition. The purpose of medical treatment is to improve the pumping action of the heart and to remove excess water from the body. A number of medicines can help reach this goal, improve symptoms, and prevent the heart from becoming weaker. Sometimes, heart failure can become so severe that a device is placed in the heart to help with pumping. Another major goal is to better treat the causes of heart failure, such as diabetes and high blood pressure, by making changes in your lifestyle and maximizing medical control when needed. Home care Follow these guidelines when caring for yourself at home: Check your weight every day. This is very important because a sudden increase in weight gain could mean worsening heart failure. Keep these things in mind: oUse the same scale every day. oWeigh yourself at the same time every day. oMake sure the scale is on a hard floor surface, not on a rug or carpet. oKeep a record of your weight every day so your healthcare provider can see it. If you are not given a log sheet for this, keep a separate journal for this purpose. Cut back on the amount of salt (sodium) you eat. Follow your healthcare provider's recommendation on how much salt or sodium you should have each day. oLimit high-salt foods. These include olives, pickles, smoked meats, salted potato chips, and most prepared foods. oDon't add salt to your food at the table. Use only small amounts of salt when cooking. oRead the labels carefully on food packages to learn how much salt or sodium is in each serving in the package. Remember, a can or package of food may contain more than 1 serving. So if you eat all the food in the package, you may be getting more salt than you think. Follow your healthcare provider's recommendations about how much fluid you should have. Be aware that some foods, such as soup, pudding, and juicy fruits like oranges or melons, contain liquid. You'll need to count the liquid in those foods as part of your daily fluid intake. Your provider can helpyou with this. Stop smoking. Cut back on how much alcohol you drink. Lose weight if you are overweight. The excess weight adds a lot of stress on the workload of the heart. Stay active. Talk with your provider about an exercise program that is safe for your heart. Keep your feet elevated to reduce swelling. Ask your provider about support hose as a preventive treatment for daytime leg swelling. Besides taking your medicine as instructed, an important part of treatment is lifestyle changes. These include diet, physical activity, stopping smoking, and weight control. Improve your diet by including more fresh foods, cutting back on how much sugar and saturated fat you eat, and eating fewer processed foods and less salt. Follow-up care Follow up with your healthcare provider, or as advised. Make sure to keep any appointments that were made for you. These can help better control your congestive heart failure. You will need to follow up with your provider on a routine basis to make sure your heart failure is well managed. If an X-ray, electrocardiogram (ECG), or other tests were done, you will be told of any new findings that may affect your care. Call 911 Call 911 if you: Become severely short of breath Feel lightheaded, or feel like you might pass out or faint Have chest pain or discomfort that is different than usual, the medicines your doctor told you to use for this don't help, or the pain lasts longer than 10 to 15 minutes You suddenly develop a rapid heart rate When to seek medical advice The following may be signs that your heart failure is getting worse. Call your healthcare provider right away if any of these happen: Sudden weight gain. This means 3 or more pounds in one day, or 5 or more pounds in 1 week Trouble breathing not related to being active New or increased swelling of your legs or ankles Swelling or pain in your abdomen Breathing trouble at night. This means waking up short of breath or needing more pillows to breathshakeel. Frequent coughing that doesn t go away Feeling much more tired than usual [id number] [employer] [address], [place] [address]. All rights reserved. This information is not intended as a substitute for professional medical care. Always follow yourhealthcare professional's instructions. 05/15/2023 20:10:41 Alcohol Abuse Alcohol Abuse Alcoholic drinks harm you when you have too many of them. No set number of drinks defines too much.Drinking that affects your life or your health is called alcohol abuse. Alcohol abuse can hurt yourrelationships with others. You may lose friends, a spouse, or even your job. You may be abusing alcohol if any of the following are true for you: Duties at home or with child adolescent care suffer because of drinking. Duties at work or in school suffer because of drinking. You have missed work or school because of drinking. You use alcohol while driving or using machinery. You have legal problems such as arrests because of drinking. You keep drinking even though it causes serious problems in your life. Health problems Alcohol abuse causes many health problems. Sometimes this can happen after only drinking a little.The effects depend on how much you drink at one time, and how often you drink. Alcohol affects all parts of your body Brain Alcohol affects the central nervous system. It can damage parts of the brain that control your balance and gait, memory, thinking, and emotions. It can cause: Memory loss Blackouts Depression Agitation Sleep problems Seizures These changes may be long chain quiller tender (permanent). Heart and blood vessels Alcohol can damage heart muscle (cardiomyopathy). This can lead to: Trouble breathing Irregular heartbeat Atrial fibrillation Leg swelling Heart failure Alcohol also makes the blood vessels stiff. This causes high blood pressure. All of these problems raise your risk of having a heart attack or stroke. Liver Alcohol causes fat to build up in the liver. This affects how the liver works. Alcohol also raises the risk for hepatitis. It can cause: Belly (abdominal) pain Belly swelling Loss of appetite Yellowed eyes or skin (jaundice) Bleeding problems Cirrhosis This can affect your ability to fight off infections and can cause diabetes. The liver changes keep it from removing toxins in your blood that can cause brain disease (encephalopathy). This condition cause: Confusion Changed level of consciousness Personality changes Memory loss Seizures, coma, and The liver changes can also cause the veins in your esophagus and stomach to become thin and swollenwith blood (varices). This can cause bleeding and vomiting of blood. Pancreas Alcohol can cause swelling (inflammation) of the pancreas (pancreatitis). This can cause belly pain, fever, and diabetes. Immune system Alcohol weakens your immune system. This makes it harder for you to fight infections and colds. It also increases the chance of getting pneumonia and tuberculosis. Cancer Alcohol raises the risk for several types of cancer. These include cancer of the mouth, esophagus, pharynx, larynx, liver, and breast. Sexual function Alcohol can lead to sexual problems. Home care These guidelines will help you deal with alcohol abuse: Admit you have a problem with alcohol. Ask for help from your healthcare provider. Also ask for help from trusted family members or close friends. Get help from people trained in dealing with alcohol abuse. This may be one-on-one counseling or group therapy. Or it may be an alcohol treatment program. Join a self-help group for alcohol abuse such as Alcoholics Anonymous. Stay away from people who abuse alcohol or tempt you to drink. Follow-up care Follow up with your healthcare provider, or as advised. Contact these groups to get help: Alcoholics Anonymous (AA). Go to www.aa.org. Or check the phone book for meetings near you. National Alcohol and Substance Abuse Information Center (NASAIC). 344.454.8410, www.addictioncareMission Bicycle Companyions.com National [place] on Alcoholism and Drug Dependence (NCADD). 375-ISU-SZLZ (746-347-0707), www.ncadd.org Call 911 Call 911 if any of these occur: Trouble breathing or slow, irregular breathing Chest pain Sudden weakness on one side of your body or sudden trouble speaking Heavy bleeding or vomiting blood Very drowsy or trouble awakening Fainting or loss of consciousness Rapid heart rate Seizure When to seek medical care Call your healthcare provider right away if any of these occur: Confusion Seeing, hearing, or feeling things that aren t there (hallucinations) Pain in your upper belly that gets worse Vomiting that continues, vomiting with blood, or black or tarry stools Severe shakiness [phone] [employer] [address] [place] [address], [place] [address]. All rights reserved. This information is not intended as a substitute for professional medical care. Always follow your[facility] hospitalcare professional's instructions. 05/15/2023 20:10:36 Sodium (Blood) Sodium (Blood) Does this test have other names? Na test What is this test? This test measures the levels of sodium in your blood. Sodium is a substance your body's cells needto work normally. Sodium helps make sure that your nerves and muscles can work as they should. Sodium is also important because it helps maintain the right balance of fluids in your body. The kidneyshelp keep sodium at a healthy level. You can get the sodium you need through your diet. But it's easy to take in too much sodium through your diet. When your body has too much sodium, your kidneys can't remove enough of it. Sodium collects in your bloodstream. This can lead to high blood pressure, which can cause other problems. Too much sodium in the blood is called hypernatremia. Too little sodium in the blood called hyponatremia. Hypernatremia can occur when you lose too many fluids. This can happen from sweating too much, vomiting, or diarrhea. Hyponatremia can occur when you drink large amounts of water or if you have problems with your kidneys that affect your ability to urinate. Why do I need this test? You may need this test if your healthcare provider thinks you have an imbalance of fluids and sodium. You may have symptoms such as: Problems with mental or cognitive function Muscle cramps or twitching Cravings for large amounts of salt Confusion or forgetfulness Problems with walking General unwell feeling Nausea Tiredness (fatigue) Headaches Shortness of breath Fluid buildup or swelling in part of the body The test can check for: Diabetes that's not controlled well Kidney problems, including advanced kidney failure Or you may need this test if you: Are taking certain medicines such as water pills (diuretics) Are having sodium therapy Lost a large amounts of bodily fluids You may also have this test as part of a routine health check. What other tests might I have along with this test? You may need other tests along with a sodium blood test. You may have tests to look at: Other electrolyte levels in your blood, such as potassium Concentration of your urine Level of sodium in your urine Concentration of your blood Levels of uric acid and urea Acid-base balance in your blood What do my test results mean? Test results may vary depending on your age, gender, health history, the method used for the test, and other things. Your test results may not mean you have a problem. Ask your healthcare provider what your test results mean for you. Normal sodium levels are usually between 136 and 145 millimoles per liter (mmol/L). Blood sodium levels below 136 mmol/L may mean you have low blood sodium (hyponatremia). Blood sodium levels greaterthan 145 mmol/L may mean you have blood sodium levels that are too high (hypernatremia). How is this test done? The test is done with a blood sample. A needle is used to draw blood from a vein in your arm or hand. Does this test pose any risks? Having a blood test with a needle carries some risks. These include bleeding, infection, bruising, and feeling lightheaded. When the needle pricks your arm or hand, you may feel a slight sting or pain. Afterward, the site may be sore. If your blood sample is collected incorrectly, your test results may be affected. Having high bloodsugar (hyperglycemia) can also affect your test results. Taking some medicines can also affect your test results. These include diuretics and nonsteroidal anti-inflammatory medicines such as ibuprofen. How do I get ready for this test? Your healthcare provider will tell you what you need to do before this test. You may need to not have food or water for several hours before the test. You may need to not take some of your medicines on the day of the test. Be sure your healthcare provider knows about all medicines, herbs, vitamins,and supplements you are taking. This includes medicines that don't need a prescription and any illegal drugs you may use. [id number] [employer] [address] [place] [address], [place] [address]. All rights reserved. This information is not intended as a substitute for professional medical care. Always follow yourway[facility] hospitalcare professional's instructions. 05/15/2023 20:10:35 Hyponatremia Hyponatremia Hyponatremia means low sodium levels in the blood. This condition most often occurs after prolongedvomiting or diarrhea, which causes your body to lose too much water and sodium. It can also result from drinking excess amounts of water or the use of diuretics (water pills). Rarely, it can be associated with disorders of your endocrine system, as side effects of illicit drug use (ecstasy), as a complication of some cancers especially small cell lung cancer, or as a complication of renal and liver disease or heart failure. Mild hyponatremia causes no symptoms. It is only discovered with a blood test. As sodium levels in the blood decreases, symptoms begin to appear. This includes weakness, confusion, muscle cramping and seizures. Home care Reduce your daily water intake until the problem is corrected. If you have been taking diuretics, you may be asked to stop taking them for a short time. If you are having symptoms of weakness or confusion, do not drive or operate dangerous machinery until symptoms resolve. If your sodium levels are too low to be managed at home with the above recommendations, you will beasked to go to the hospital to have your sodium replaced through your vein. Follow-up care Follow up with your healthcare provider for a repeat blood test within the next week, or as advised. When to seek medical advice Call your healthcare provider if any of the following occur: Increasing weakness Dizziness Irregular heartbeat, extra beats or very fast heart rate Increasing confusion Fainting or loss of consciousness Seizure [phone] [employer] [address] [place] [address]. All rights reserved. This information is not intended as a substitute for professional medical care. Always follow yourhealthcare professional's instructions. Follow Up Care 05/15/2023 18:26:16 With:GUADALUPE RUGGIERO MD Address: [address] [place] [phone]- [phone] When:2-4 days [facility] 02-08-2024 Note ORIGINAL EXAMINATION: ONE XRAY VIEW OF THE CHEST05/15/2023 7:12 pm COMPARISON: 04/25/2023 HISTORY: ORDERING SYSTEM PROVIDED HISTORY: Reason for Exam: chest pain FINDINGS: Body habitus limits evaluation. The cardiomediastinal silhouette is unchanged. Pulmonary vascular prominence is similar to before although correlate with patient heart function/volume status. Blunting of the right costophrenic angle which can be seen in pleural fluid. No definite focal consolidation.. No acute osseous findings. IMPRESSION: No significant change from prior study. I have personally reviewed the images of this examination and agree with the resident's findings and interpretation. Interpreted by: Sudhakar Jefferson Preliminary Report By: Everardo Montenegro Electronically signed By Sudhakar Jefferson Dictated Date: 05/15/2023 7:16:00 PM Prelim Date: 05/15/2023 7:17:41 PM Sign Date: 05/15/2023 7:24:52 PM [facility]ing [facility] NoteSinus rhythm Right bundle branch block Compared to ECG at 04/25/2023 20:04:47 BORDERLINE ECG Electronic Signature: AZALEA PAYNE DO 05/15/2023 18:51:35[facility] 01-20-2024 Hospital Discharge instructions Patient Education 04/25/2023 22:03:24 What is Heart Failure? What is Heart Failure? The heart is a muscle that pumps oxygen-rich blood to all parts of the body. When you have heart failure, the heart is not able to pump as well as it should. Blood and fluid may back up into the lungs, and some parts of the body don t get enough oxygen-rich blood to work normally. These problems lead to the symptoms you feel. When you have heart failure With heart failure, not enough oxygen-rich blood leaves the heart with each beat. There are 2 typesof heart failure. Both affect how well the left ventricles can pump blood. You may have one or bothtypes. Systolic heart failure. The heart muscle becomes weak and enlarged. It can t pump enough oxygen-rich blood forward to the rest of the body when the ventricles contract. The measurement of how much blood your heart pumps out with each beat is called ejection fraction. In systolic heart failure, the ejection fraction is lower than normal. This can cause blood to back up into the lungs and cause shortness of breath and eventually ankle swelling (edema). Diastolic heart failure. The heart muscle becomes stiff. It doesn t relax normally between contractions. This keeps the ventricles from filling with blood as they should. Ejection fraction is often in the normal range. This can still lead to the backup of blood into the body and affect the organs such as the liver. Recognizing heart failure symptoms When you have heart failure, you need to pay close attention to your body and how you feel, every single day. That way, if a problem occurs, you can get help before it becomes too severe. You'll needto watch for changes in your symptoms. As long as symptoms stay about the same from one day to the next, your heart failure is stable. But if symptoms start to get worse, it's time to take action. Signs and symptoms of worsening heart failure include: Rapid weight gain from fluid buildup Shortness of breath Fast heart rate Cough that won't go away Swelling, especially in the feet (edema), legs, or abdomen Tiredness (fatigue) Nausea or loss of appetite How heart failure affects your body When the heart doesn't pump enough blood, body chemicals (hormones) are sent to increase the amountof work the heart does. Some hormones make the heart grow larger. Others tell the heart to pump faster. As a result, the heart may pump more blood at first, but it can't keep up with the ongoing demands. So, the heart muscle becomes even more weak. Over time, even less blood is pumped through the heart. This leads to problems throughout the body as organs start to feel the effects of a long-term lack of oxygen. If not treated, over time this can cause problems with your lungs, liver, and kidneys. It can also cause loss of elasticity in the skin, and skin changes in the lower legs. A weak heart itself can eventually cause a severe decline in health and possible if left untreated. What is ejection fraction? Ejection fraction (EF) is a measurement of how well your heart pumps blood. It measures how much blood in the heart's ventricle is pumped out (ejected) with each heartbeat. This is measured to help diagnose heart failure. A healthy heart pumps at least half of the blood from the ventricles with each beat. This means a normal ejection fraction is around 50% to 70%. With systolic heart failure, theEF is 40% or less. With diastolic heart failure the EF can fall within the normal range. Your doctor will calculate ejection fraction from an echocardiogram or other tests. Your healthcare provider can talk with you about treatment options and how to improve your EF. My ejection fraction Date: Ejection fraction: Test used: [id number] [employer] [address] [place] [address], [place] [address]. All rights reserved. This information is not intended as a substitute for professional medical care. Always follow yourwayne hospitalcare professional's instructions. 04/25/2023 22:03:05 Cellulitis Skin Infection Cellulitis Cellulitis is an infection of the deep layers of skin. A break in the skin, such as a cut or scratch, can let bacteria under the skin. If the bacteria get to deep layers of the skin, it can be serious. If not treated, cellulitis can get into the bloodstream and lymph nodes. The infection can then spread throughout the body. This causes serious illness. Cellulitis causes the affected skin to become red, swollen, warm, and sore. The reddened areas havea visible border. An open sore may leak fluid (pus). You may have a fever, chills, and pain. Cellulitis is treated with antibiotics taken for 7 to 10 days. An open sore may be cleaned and covered with cool wet gauze. Symptoms should get better 1 to 2 days after treatment is started. Make sure to take all the antibiotics for the full number of days until they are gone. Keep taking the medicine even if your symptoms go away. Home care Follow these tips: Limit the use of the part of your body with cellulitis. If the infection is on your leg, keep your leg raised while sitting. This will help to reduce swelling. Take all of the antibiotic medicine exactly as directed until it is gone. Do not miss any doses, especially during the first 7 days. Don t stop taking the medicine when your symptoms get better. Keep the affected area clean and dry. Wash your hands with soap and warm water before and after touching your skin. Anyone else who touches your skin should also wash his or her hands. Don't share towels. Follow-up care Follow up with your healthcare provider, or as advised. If your infection does not go away on the first antibiotic, your healthcare provider will prescribe a different one. When to seek medical advice Call your healthcare provider right away if any of these occur: Red areas that spread Swelling or pain that gets worse Fluid leaking from the skin (pus) Fever higher of 100.4 F (38.0 C) or higher after 2 days on antibiotics [id number] [employer] [address] [place] [address], [place] [address]. All rights reserved. This information is not intended as a substitute for professional medical care. Always follow yourhealthcare professional's instructions. Follow Up Care 04/25/2023 19:32:49 With:ANNETTE AN MD Address: [address] [facility] [address] [place] [address] [phone] When:2-4 days [facility] 01-19-2024 Note Discharge Instructions Thank you for allowing [facility] to assist you with your healthcare needs. The following is importantdischarge information regarding your hospital visit. Diagnosis from Today's Visit Cellulitis CHF - Congestive heart failure Foot pain-swelling Peripheral edema What to Do Next Instructions from Your Care Team Discharge ED Outpatient Vascular Lab - Ordered -- Test Requested: b/l LE duplex venous u/s, Lower extremity, Bilateral, Test Reason: Swelling, Mon-Fri 8am-4:30pm: Call [phone] at 7:30am to schedule a same day appointment for testing. Please be aware there may be a short wait time. Post Acute Orders No qualifying data available. You Need to Schedule the Following Appointments Follow Up with ANNETTE AN MD When Within 2-4 days Where: [address] [facility] [address] [place] [address]- [phone] Allergies aspirin Medications Please ask your primary doctor or pharmacist before taking any other medication not listed, including over the counter drugs, herbal medications, vitamins and or supplements as they may interact withyour home medications. What How Much When Instructions Last Dose New potassium chloride (potassium chloride 10 mEq oral capsule, extended release) 1 cap by mouth Once a day take with food. Printed Prescription Changed cephalexin (cephalexin 500 mg oral capsule) 1 cap by mouth Four (4) times a day Duration: 10 Days Printed Prescription Changed cephalexin (cephalexin 500 mg oral capsule) 1 cap by mouth Four (4) times a day Duration: 7 Days Changed furosemide (Lasix 20 mg oral tablet) 1 tab(s) by mouth Once a day Changed furosemide (Lasix 40 mg oral tablet) 1 tab(s) by mouth Once a day Printed Prescription Unchanged cyclobenzaprine (cyclobenzaprine 10 mg oral tablet) 1 tab(s) by mouth Three (3) times a day as needed for for muscle spasm Duration: 5 Days Unchanged gabapentin (gabapentin 600 mg oral tablet) 1 tab(s) by mouth Three (3) times a day Unchanged glimepiride (glimepiride 2 mg oral tablet) 1 tab(s) by mouth Once a day Unchanged indomethacin (indomethacin 50 mg oral capsule) 1 cap by mouth Three (3) times a day with meals as needed for for pain Duration: 5 Days Take with food/ milk. Unchanged lisinopril (lisinopril 20 mg oral tablet) 1 tab(s) by mouth Once a day Unchanged metFORMIN (MetFORMIN (Eqv-Fortamet) 1000 mg oral tablet, EXTENDED RELEASE) 1 tab(s) by mouth Two (2) times a day Unchanged rOPINIRole (rOPINIRole 1 mg oral tablet) 1 tab(s) by mouth Three (3) times a day Unchanged simvastatin (simvastatin 10 mg oral tablet) Please take this list to your next doctor s visit. Bring all medications you take, including over the counter medications, herbals and other supplements with you to your doctor s visit. Patients and families are reminded to discard old lists and to update any records with all medication providers or retail pharmacies. Medication Leaflets potassium chloride (oral/injection) (shun TASS ee um) Luis Potassium 99, Klor-Con, K-Tab, Potassium Chloride Proamp What is the most important information I should know about potassium chloride? You should not use this medicine if you have high levels of potassium in your blood (hyperkalemia),or if you also take a 'potassium-sparing' diuretic. What is potassium chloride? Potassium is a mineral that is needed for several functions of your body, especially the beating ofyour heart. Potassium chloride is used to prevent or to treat low blood levels of potassium (hypokalemia). Potassium levels can be low as a result of a disease or from taking certain medicines, or after a prolonged illness with diarrhea or vomiting. Potassium chloride may also be used for purposes not listed in this medication guide. What should I discuss with my healthcare provider before taking potassium chloride? You should not use potassium chloride if you are allergic to it, or if: you have high levels of potassium in your blood (hyperkalemia); or you take a 'potassium-sparing' diuretic (water pill) such as amiloride, spironolactone, or triamterene. Tell your doctor if you have ever had: heart problems; high blood pressure; liver or kidney disease; a large tissue injury such as a severe burn; an electrolyte imbalance (such as low levels of calcium or magnesium in your blood); trouble swallowing; slow digestion; stomach bleeding, an ulcer, or a blockage in your stomach or intestines; an adrenal gland disorder; diabetes; or severe dehydration. Tell your doctor if you are or . How should I take potassium chloride? Follow all directions on your prescription label and read all medication guides or instruction sheets. Your doctor may occasionally change your dose. Use the medicine exactly as directed. Potassium chloride oral is taken by mouth. Potassium chloride injection is given as a slow infusioninto a vein. A healthcare provider will give you this medicine by injection if you have severely low potassium levels. Tell your caregivers if you feel any burning, pain, or swelling around the IV needle when potassium chloride is injected. Take oral potassium chloride with food if the medicine upsets your stomach. Always follow directions on the medicine label about giving this medicine to a child. Take the tablet or capsule with a full glass of water. Do not crush, chew, or suck on a potassium tablet or capsule. Sucking on the pill could irritate your mouth or throat. Measure liquid medicine carefully. Use the dosing syringe provided, or use a medicine dose-measuring device (not a kitchen spoon). Mix the oral solution with least 4 ounces of water before taking it. You may need to follow a special diet while using potassium chloride. Follow all instructions of your doctor or dietitian. Learn about the foods to eat or avoid to help control your condition. Call your doctor if you have trouble swallowing a potassium chloride capsule or tablet. You may be able to dissolve the tablet in water, or mix the medicine from a capsule with soft food. Carefully follow your doctor's instructions. You may need frequent medical tests. Your heart function may need to be checked using an electrocardiograph or ECG (sometimes called an EKG). Even if you have no symptoms, tests can help your doctor determine if this medicine is effective. Some tablets are made with a shell that is not absorbed or melted in the body. Part of this shell may appear in your stool. This is normal and will not make the medicine less effective. Store at room temperature away from moisture, heat, and light. Keep the medication in a closed container. What happens if I miss a dose? Take the medicine as soon as you can, but skip the missed dose if it is almost time for your next dose. Do not take two doses at one time. What happens if I overdose? Seek emergency medical attention or call the Poison Help line at . Overdose symptoms may include stomach pain, vomiting, irregular heartbeats, chest pain, muscle weakness, loss of movement, numbness or tingling, or feeling light-headed. What should I avoid while taking potassium chloride? Do not use potassium supplements or other products that contain potassium, unless your doctor has told you to. Salt substitutes or low-salt foods often contain potassium. Read the label of any food or medicine to see if it contains potassium. What are the possible side effects of potassium chloride? Get emergency medical help if you have signs of an allergic reaction: hives; difficult breathing; swelling of your face, lips, tongue, or throat. Stop using potassium chloride and call your doctor at once if you have: severe throat irritation; chest pain, trouble breathing; pain, burning, bruising, swelling, irritation, or skin changes where the medicine was injected; stomach bloating, severe vomiting, severe stomach pain; high potassium level--nausea, weakness, tingly feeling, chest pain, irregular heartbeats, loss of movement; or signs of stomach bleeding--bloody or tarry stools, coughing up blood or vomit that looks like coffee grounds. Common side effects may include: nausea, vomiting, diarrhea; gas, stomach pain; or the appearance of a potassium chloride tablet in your stool. This is not a complete list of side effects and others may occur. Call your doctor for medical advice about side effects. You may report side effects to FDA at 5-621-YCY-4032. What other drugs will affect potassium chloride? Tell your doctor about all your other medicines, especially: medicine to prevent organ transplant rejection; a diuretic or 'water pill'; or heart or blood pressure medication. This list is not complete. Other drugs may affect potassium chloride, including prescription and alvf-thj-yxbvhou medicines, vitamins, and herbal products. Not all possible drug interactions are listed here. Where can I get more information? Your pharmacist can provide more information about potassium chloride. Remember, keep this and all other medicines out of the reach of children, never share your medicines with others, and use this medication only for the indication prescribed. Every effort has been made to ensure that the information provided by [employer]. ('[employer]') is accurate, up-to-date, and complete, but no guarantee is made to that effect. Drug information contained herein may be time sensitive. [employer] information has been compiled for use by healthcare practitioners and consumers in the [place] and therefore [employer] does not warrant that uses outside of the [place] are appropriate, unless specifically indicated otherwise. [employer] drug information does not endorse drugs, diagnose patients or recommend therapy. [employer] drug information isan informational resource designed to assist licensed healthcare practitioners in caring for their p atients and/or to serve consumers viewing this service as a supplement to, and not a substitute for, the expertise, skill, knowledge and judgment of healthcare practitioners. The absence of a warningfor a given drug or drug combination in no way should be construed to indicate that the drug or drug combination is safe, effective or appropriate for any given patient. [employer] does not assume any responsibility for any aspect of healthcare administered with the aid of information [employer] provides. The information contained herein is not intended to cover all possible uses, directions, precautions, warnings, drug interactions, allergic reactions, or adverse effects. If you have questions about the drugs you are taking, check with your doctor, nurse or pharmacist. Copyright 7914-8623 [employer]. Version: 16.. Revision Date: 11/13/2022. furosemide (oral/injection) (fur [place] se mide) Furoscix, Lasix What is the most important information I should know about furosemide? You should not use this medicine if you are unable to urinate. Using more than your recommended dose will not make this medicine more effective. High doses of furosemide may cause irreversible hearing loss. Tell your doctor about all your other medicines. Some drugs should not be used with furosemide. What is furosemide? Furosemide is used to treat fluid retention (edema) in people with congestive heart failure, liver disease, or a kidney disorder such as nephrotic syndrome. Furosemide is also used to treat high blood pressure (hypertension). The Furiosi brand of furosemide is only used in adults. Furosemide may also be used for purposes not listed in this medication guide. What should I discuss with my healthcare provider before using furosemide? You should not use furosemide if you are allergic to it, if you are unable to urinate or have hepatic cirrhosis. You should not use Furiosi if you have ascites or have allergies to medical adhesives. Tell your doctor if you have ever had: an electrolyte imbalance (such as low levels of potassium or magnesium in your blood); enlarged prostate, bladder obstruction, or other urination problems; gout; lupus; diabetes; an allergy to sulfa drugs; kidney disease; or cirrhosis or other liver disease. Tell your doctor if you have an MRI (magnetic resonance imaging) or any type of scan using a radioactive dye that is injected into a vein. Contrast dyes and furosemide can harm your kidneys. It is not known if furosemide will harm an unborn baby. Tell your doctor if you are or plan to become . It may not be safe to breastfeed while using this medicine. Ask your doctor about any risk. Furosemide may slow breast milk production. How should I use furosemide? Follow all directions on your prescription label and read all medication guides or instruction sheets. Use the medicine exactly as directed. Furosemide oral is taken by mouth. Furosemide injection is given in a muscle, under the skin, or song vein. A healthcare provider will give you this injection if you are unable to take the medicine by mouth. Furiosi infusion lasts about 5 hours. Furiosi should not get wet. Do not bathe, shower, swim or exercise while wearing the infusor. Also do not apply any products such as lotions or creams in the area where the infusor is placed. It is not recommended to travel by car or airplane while using Furiosi. Also do not use the infusorwithin 12 inches of mobile phones, tablets, computers, or wireless accessories such as remote control, or [employer] devices. Do not reuse a needle, syringe or cartridge. Place them in a puncture-proof 'sharps' container and dispose of it following state or local laws. Keep out of the reach of children and pets. You may receive your first dose in a hospital or clinic setting if you have severe liver disease. Do not use more than your recommended dose. High doses of furosemide may cause irreversible hearingloss. Measure liquid medicine with the supplied measuring device (not a kitchen spoon). Doses are based on weight in children and teenagers. Your child's dose may change if the child gains or loses weight. Furosemide will make you urinate more often and you may get dehydrated easily. Follow your doctor'sinstructions about using potassium supplements or getting enough salt and potassium in your diet. Your blood pressure will need to be checked often and you may need other medical tests. If you have high blood pressure, keep using this medicine even if you feel well. High blood pressure often has no symptoms. If you need surgery, tell the surgeon ahead of time that you are using furosemide. Store at room temperature away from moisture, heat, and light. Throw away any unused oral liquid after 90 days. What happens if I miss a dose? Furosemide is sometimes used only once, so you may not be on a dosing schedule. If you are using the medication regularly, use the medicine as soon as you can, but skip the missed dose if it is almost time for your next dose. Do not use two doses at one time. What happens if I overdose? Seek emergency medical attention or call the Poison Help line at . Overdose symptoms may include feeling very thirsty or hot, heavy sweating, hot and dry skin, extreme weakness, or fainting. What should I avoid while using furosemide? Avoid getting up too fast from a sitting or lying position, or you may feel dizzy. Avoid becoming dehydrated. Follow your doctor's instructions about the type and amount of liquids you should drink while you are using furosemide. Drinking alcohol with this medicine can cause side effects. Furosemide could make you sunburn more easily. Avoid sunlight or tanning beds. Wear protective clothing and use sunscreen (SPF 30 or higher) when you are outdoors. If you have high blood pressure, ask a doctor or pharmacist before taking any medicines that can raise your blood pressure, such as diet pills or zxgly-egg-ckns medicine. What are the possible side effects of furosemide? Get emergency medical help if you have signs of an allergic reaction (hives, difficult breathing, swelling in your face or throat) or a severe skin reaction (fever, sore throat, burning eyes, skin pain, red or purple skin rash with blistering and peeling). Call your doctor at once if you have: a light-headed feeling, like you might pass out; ringing in your ears, hearing loss; muscle spasms or contractions; pale skin, easy bruising, unusual bleeding; high blood sugar--increased thirst, increased urination, dry mouth, fruity breath odor; kidney problems--swelling, urinating less, feeling tired or short of breath signs of liver or pancreas problems--loss of appetite, upper stomach pain (that may spread to your back), nausea or vomiting, dark urine, jaundice (yellowing of the skin or eyes); or signs of an electrolyte imbalance--increased thirst or urination, constipation, muscle weakness, leg cramps, numbness or tingling, feeling jittery, fluttering in your chest. Common side effects may include: diarrhea, constipation, loss of appetite; numbness or tingling; headache, dizziness; or blurred vision. This is not a complete list of side effects and others may occur. Call your doctor for medical advice about side effects. You may report side effects to FDA at 5-398-MPQ-5226. What other drugs will affect furosemide? Sometimes it is not safe to use certain medicines at the same time. Some drugs can affect your blood levels of other drugs you use, which may increase side effects or make the medicines less effective If you also take sucralfate, take your furosemide dose 2 hours before or 2 hours after you take sucralfate. Tell your doctor about all your other medicines, especially: another diuretic, especially ethacrynic acid; methotrexate; chloral hydrate; lithium; phenytoin; an antibiotic; cancer medicine, such as cisplatin; heart or blood pressure medicine; or NSAIDs (nonsteroidal anti-inflammatory drugs)--aspirin, ibuprofen (Advil, Motrin), naproxen (Aleve), celecoxib, diclofenac, indomethacin, meloxicam, and others. This list is not complete. Other drugs may affect furosemide, including prescription and fupk-kep-xyhcxvh medicines, vitamins, and herbal products. Not all possible drug interactions are listed here. Where can I get more information? Your doctor or pharmacist can provide more information about furosemide. Remember, keep this and all other medicines out of the reach of children, never share your medicines with others, and use this medication only for the indication prescribed. Every effort has been made to ensure that the information provided by [employer] ('[employer]') is accurate, up-to-date, and complete, but no guarantee is made to that effect. Drug information contained herein may be time sensitive. [employer] information has been compiled for use by healthcare practitioners and consumers in the [place] and therefore [employer] does not warrant that uses outside of the [place] are appropriate, unless specifically indicated otherwise. [employer] drug information does not endorse drugs, diagnose patients or recommend therapy. [employer] drug information isan informational resource designed to assist licensed healthcare practitioners in caring for their p atients and/or to serve consumers viewing this service as a supplement to, and not a substitute for, the expertise, skill, knowledge and judgment of healthcare practitioners. The absence of a warningfor a given drug or drug combination in no way should be construed to indicate that the drug or drug combination is safe, effective or appropriate for any given patient. [employer] does not assume any responsibility for any aspect of healthcare administered with the aid of information [employer] provides. The information contained herein is not intended to cover all possible uses, directions, precautions, warnings, drug interactions, allergic reactions, or adverse effects. If you have questions about the drugs you are taking, check with your doctor, nurse or pharmacist. Copyright 0845-0859 [employer]. Version: 18.01. Revision Date: 06/14/2022. Education Materials What is Heart Failure? The heart is a muscle that pumps oxygen-rich blood to all parts of the body. When you have heart failure, the heart is not able to pump as well as it should. Blood and fluid may back up into the lungs, and some parts of the body don t get enough oxygen-rich blood to work normally. These problems lead to the symptoms you feel. When you have heart failure With heart failure, not enough oxygen-rich blood leaves the heart with each beat. There are 2 typesof heart failure. Both affect how well the left ventricles can pump blood. You may have one or bothtypes. Systolic heart failure. The heart muscle becomes weak and enlarged. It can t pump enough oxygen-rich blood forward to the rest of the body when the ventricles contract. The measurement of how much blood your heart pumps out with each beat is called ejection fraction. In systolic heart failure, the ejection fraction is lower than normal. This can cause blood to back up into the lungs and cause shortness of breath and eventually ankle swelling (edema). Diastolic heart failure. The heart muscle becomes stiff. It doesn t relax normally between contractions. This keeps the ventricles from filling with blood as they should. Ejection fraction is often in the normal range. This can still lead to the backup of blood into the body and affect the organs such as the liver. Recognizing heart failure symptoms When you have heart failure, you need to pay close attention to your body and how you feel, every single day. That way, if a problem occurs, you can get help before it becomes too severe. You'll needto watch for changes in your symptoms. As long as symptoms stay about the same from one day to the next, your heart failure is stable. But if symptoms start to get worse, it's time to take action. Signs and symptoms of worsening heart failure include: Rapid weight gain from fluid buildup Shortness of breath Fast heart rate Cough that won't go away Swelling, especially in the feet (edema), legs, or abdomen Tiredness (fatigue) Nausea or loss of appetite How heart failure affects your body When the heart doesn't pump enough blood, body chemicals (hormones) are sent to increase the amountof work the heart does. Some hormones make the heart grow larger. Others tell the heart to pump faster. As a result, the heart may pump more blood at first, but it can't keep up with the ongoing demands. So, the heart muscle becomes even more weak. Over time, even less blood is pumped through the heart. This leads to problems throughout the body as organs start to feel the effects of a long-term lack of oxygen. If not treated, over time this can cause problems with your lungs, liver, and kidneys. It can also cause loss of elasticity in the skin, and skin changes in the lower legs. A weak heart itself can eventually cause a severe decline in health and possible if left untreated. What is ejection fraction? Ejection fraction (EF) is a measurement of how well your heart pumps blood. It measures how much blood in the heart's ventricle is pumped out (ejected) with each heartbeat. This is measured to help diagnose heart failure. A healthy heart pumps at least half of the blood from the ventricles with each beat. This means a normal ejection fraction is around 50% to 70%. With systolic heart failure, theEF is 40% or less. With diastolic heart failure the EF can fall within the normal range. Your doctor will calculate ejection fraction from an echocardiogram or other tests. Your healthcare provider can talk with you about treatment options and how to improve your EF. My ejection fraction Date: Ejection fraction: Test used: 8109-3387 [employer]. [address] [place] [address]. All rights reserved. This information is not intended as a substitute for professional medical care. Always follow yourhealthcare professional's instructions. Cellulitis Cellulitis is an infection of the deep layers of skin. A break in the skin, such as a cut or scratch, can let bacteria under the skin. If the bacteria get to deep layers of the skin, it can be serious. If not treated, cellulitis can get into the bloodstream and lymph nodes. The infection can then spread throughout the body. This causes serious illness. Cellulitis causes the affected skin to become red, swollen, warm, and sore. The reddened areas havea visible border. An open sore may leak fluid (pus). You may have a fever, chills, and pain. Cellulitis is treated with antibiotics taken for 7 to 10 days. An open sore may be cleaned and covered with cool wet gauze. Symptoms should get better 1 to 2 days after treatment is started. Make sure to take all the antibiotics for the full number of days until they are gone. Keep taking the medicine even if your symptoms go away. Home care Follow these tips: Limit the use of the part of your body with cellulitis. If the infection is on your leg, keep your leg raised while sitting. This will help to reduce swelling. Take all of the antibiotic medicine exactly as directed until it is gone. Do not miss any doses, especially during the first 7 days. Don t stop taking the medicine when your symptoms get better. Keep the affected area clean and dry. Wash your hands with soap and warm water before and after touching your skin. Anyone else who touches your skin should also wash his or her hands. Don't share towels. Follow-up care Follow up with your healthcare provider, or as advised. If your infection does not go away on the first antibiotic, your healthcare provider will prescribe a different one. When to seek medical advice Call your healthcare provider right away if any of these occur: Red areas that spread Swelling or pain that gets worse Fluid leaking from the skin (pus) Fever higher of 100.4 F (38.0 C) or higher after 2 days on antibiotics 1333-6203 [employer], [employer]. [address] [place] [address], [place] [address]. All rights reserved. This information is not intended as a substitute for professional medical care. Always follow yourhealthcare professional's instructions. Additional Information VACCINATE! IT SAVES LIVES! Members of the community who have not yet received the COVID-19 vaccine and would like to receive it can visit one of [facility] vaccine clinics. There are many vaccine clinic locations within the [facility]. For locations and available times, please visit [email or web address] It is important to note that some COVID mobile vaccine clinics are held outdoors and may be canceled in rainy or stormy conditions. To learn more about pediatric vaccinations (ages 5-11), we invite you to visit the [facility] [employer] [facility] webpage. [email or web address] learn more about the COVID-19 vaccine, we invite you to visit the CDC website for a list of frequently asked questions. https://www.cdc.gov/coronavirus/2019-ncov/vaccines/faq.html [employer] Patient Portal Access Instructions: Stay connected with your healthcare team and access your personal medical information anytime with the [employer] Patient Portal. If you would like a full copy of your medical records please contact the [facility] Medical Records Department Friday through Friday between 8a.m. and 4:30p.m. Please follow the directions below to access the portal: 1.Access the email account you provided upon registration to the hospital.2.Look for an invitation email from [facility].3.Open the email and access the invitation link: Accept Invitation to [employer] [facility]4.Fill in the required aleln to create your account. Sign into [email or web address] with your username and password that you created in the above steps to stay up to date. You can then view a summary of results, a summary of your visits, and the ability to download your summaries to your computer or send the information securely to a physician. Remember that your healthcare information is confidential, so carefully consider who you will allow to register on the [facility] Patient Portal for access to your information. You can also access the [facility] Patient Portal on the [employer]. Simply click on Health Records under [email or web address] and then click on the [email or web address] logo. HOW TO SAFELY DISPOSE OF PRESCRIPTION MEDICATIONS Please use one of the following methods to safely dispose of your unused medications. 1.Use a drug disposal kit: the drug disposal pouch allows you to safely discard your old and unuseddrugs. Ask your nurse to give you one when you are discharged.2.Visit a local take-back location: Many local pharmacies and police departments have programs that collect old and unwanted prescriptiondrugs. Call your local pharmacy or go to http://MailLift.Photo Rankr/5O9Fb5o to find one close to you.3.Make use of household items: Use cat litter or old coffee grounds to dispose medications if other options arenot available. Mix your drugs with these household products, seal them in an airtight container andthrow it into the garbage. Call [facility]: [phone] to be sure your drugs can be disposed of in this way. Some medicines may require a different approach.4.Never flush your medications down the toilet. IF YOU HAVE BEEN PRESCRIBED AN OPIOIDS FOR PAIN If you have been prescribed an opioid (such as hydrocodone, oxycodone or morphine), it is critical to understand the possible side effects and risks of opioid pain medications. Even when taken as directed, opioids can have several side effects including: Tolerance, meaning you might need to take more of a medication for the same pain relief. Nausea, vomiting and/or constipation. Sleepiness, dizziness, dry mouth, confusion, depression or itching. Physical dependence, meaning you have withdrawal symptoms when a medication is stopped ? this can develop within a few days. KNOW YOUR RESPONSIBILITIES It is important to know exactly how much and how often to take the opioid pain medications you are prescribed. Never take opioids in higher amounts or more often than prescribed. Do not combine opioids with alcohol or other drugs that cause drowsiness, such as benzodiazepines, also known as benzos,including diazepam and alprazolam, muscle relaxants or sleep aids. Never sell or share prescriptionopioids. This is illegal. Store opioids in a secure place and out of reach of others (including children, family, friends and visitors). The last page(s) of this document has been signed and retained as a CHART COPY Signatures Patient Education Materials What is Heart Failure? Cellulitis Skin Infection Medication Leaflets potassium chloride (oral/injection), furosemide (oral/injection) My discharge plan and instructions have been reviewed and explained to me and I,BALJIT HYATT JR, YUSEF understand my current condition and have read and understand these discharge instructions. I have received a written copy of the plan/instructions. If I have questions, I am aware that I should contact my doctor. 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 Multiplanar reformatted images are provided for review. MIP images are provided for review. Automated exposure control, iterative reconstruction, and/or weight based adjustment of the mA/kV was utilized to reduce the radiation dose to as low as reasonably achievable. COMPARISON: Radiograph of the chest performed same day HISTORY: ORDERING SYSTEM PROVIDED HISTORY: Reason for Exam: dyspnea FINDINGS: Motion degraded exam. Pulmonary Arteries: Pulmonary arteries are adequately opacified for evaluation. No evidence of intraluminal filling defect to suggest pulmonary embolism within the confines. Mediastinum: Dilated ventricles and atria. Coronary artery calcifications. No pericardial effusion. Mildly enlarged mediastinal lymph nodes. Nonaneurysmal thoracic aorta. Dilated main pulmonary arteries which can be seen in pulmonary arterial hypertension. Lungs/pleura: Motion degraded exam. Pulmonary vascular prominence. Small to moderate right pleural fluid. Ground-glass opacities in the right lower lobe areas of bronchial lumen opacification in the right lower lobe. 0.7 cm pulmonary nodule in the left lower lobe. A few pulmonary nodules in the right lower lobe measuring up to 0.8 cm. Upper Abdomen: Reflux of contrast into the IVC which can be seen in right heart dysfunction. Trace subdiaphragmatic fluid. A few subcentimeter short axis celiac axis lymph nodes which are nonspecific. Soft Tissues/Bones: Degenerative changes of the spine. IMPRESSION: Motion degraded exam. No evidence of pulmonary embolism within the confines. Small to moderate right pleural fluid. Ground-glass opacities in the right lower lobe with associated bronchial wall thickening and areas of bronchial lumen opacification, nonspecific although could reflect underlying infection or be related to airway disease. A few pulmonary nodules in the lower lobes measuring up to 0.8 cm. Correlate with any prior cross-sectional imaging of the chest and consider follow-up per Fleischner criteria below. Dilated heart. Pulmonary vascular prominence. Correlate with patient heart function/volume status. RECOMMENDATIONS: Multiple Solid Nodules: Nodule size equals 6-8 mm In a low-risk patient, CT at 3-6 months, then consider CT at 18-24 months. In a high-risk patient, CT at 3-6 months, then CT at 18-24 months. Interpreted by: Sudhakar Jefferson Preliminary Report By: Sudhakar Jefferson Electronically signed By Sudhakar Jefferson Dictated Date: 04/25/2023 9:30:37 PM Prelim Date: 04/25/2023 9:46:03 PM Sign Date: 04/25/2023 9:46:03 PM Ordering Provider: [facility]01-19-2024 Note ORIGINAL EXAMINATION: ONE XRAY VIEW OF THE CHEST 04/25/2023 8:13 pm COMPARISON: Radiograph of chest September 10, 2021 HISTORY: ORDERING SYSTEM PROVIDED HISTORY: Reason for Exam: dyspnea FINDINGS: Cardiac silhouette is mildly prominent, which could be accentuated by patient body habitus and portable technique. Costophrenic angles are sharp. No radiographic pneumothorax. No definite focal consolidation. Similar appearing pulmonary vascular prominence. Osseous structures grossly unchanged. IMPRESSION: Suboptimal exam due to patient body habitus. No definite focal consolidation. Similar appearing pulmonary vascular prominence. Interpreted by: Sudhakar Jefferson Preliminary Report By: Sudhakar Jefferson Electronically signed By Sudhakar Jefferson Dictated Date: 04/25/2023 8:16:35 PM Prelim Date: 04/25/2023 8:17:59 PM Sign Date: 04/25/2023 8:17:59 PM [facility] NoteSinus rhythm Probable left atrial enlargement Right bundle branch block Baseline wander in lead(s) V2 BORDERLINE ECG Electronic Signature: AZALEA PANYE DO 04/25/2023 20:34:58[facility] 11-22-2023 Miscellaneous Notes* Telephone Encounter - Blanka GenaoRn), RN - 02/26/2023 7:15 PM EST Reason for Call: Patient states he has been coughing for over 2 weeks. Patient states he has been coughing upred phlegm as well but was unsure if it was blood. Patient has a history of DVT and DM2 , non smoker. Patient while on the line is audibly short of breath and loud, harsh coughing prohibits him from speaking mostly in a full sentence. Patient states he always has chest pain and rates pain 5/10 at this time. Chest pain was evaluated previously . Outcome: Go to the ED now Patient advised to report to the nearest ED states he will go in when he [place] home [place] [employer]. Advised patient that he may need an ambulance if no frontload driver is available. Patient states he was going to go to the ED tomorrow. Reinforced the need to report to the ED based on his history. Patient verbalized agreement. Reason for Disposition History of prior blood clot in leg or lungs (i.e., deep vein thrombosis, pulmonary embolism) Protocols used: Coughing Up [id number] [facility] Discharge instructions Patient Education 01/02/2023 11:14:34 Hip Strain Hip Strain You have a strain of the muscles around the hip joint. A muscle strain is a stretching or tearing of muscle fibers. This causes pain, especially when you move that muscle. There may also be some swelling and bruising. Home care Stay off the injured leg as much as possible until you can walk on it without pain. If you have a lot of pain with walking, crutches or a walker may be prescribed. These [facility] or [facility] and surgical or orthopedic supply stores. Follow your healthcare provider's advice about when to start putting weight on that leg. Apply an ice pack over the injured area for 15 to 20 minutes every 3 to 6 hours. Do this for the first 24 to 48 hours. You can make an ice pack by filling a plastic bag that seals at the top with icecubes and then wrapping it with a thin towel. Be careful not to injure your skin with the ice treatments. Ice should never be applied directly to skin. Continue the use of ice packs for relief of pain and swelling as needed. After 48 hours, apply heat (warm shower or warm bath) for 15 to 20 minutesseveral times a day, or alternate ice and heat. You may use tqdw-ozl-zpzufvo pain medicine to control pain, unless another pain medicine was prescribed. If you have chronic liver or kidney disease or ever had a stomach ulcer or gastrointestinal bleeding, talk with your healthcare provider before using these medicines. If you play sports, you may resume these activities when you are able to hop and run on the injuredleg without pain. Follow-up care Follow up with your healthcare provider, or as advised. If your symptoms don't start to get better after a week, more tests may be needed. If X-rays were taken, you will be told of any new findings that may affect your care. When to seek medical advice Call your healthcare provider right away if any of these occur: Increased swelling or bruising Increased pain Losing the ability to put weight on the injured side [id number] [employer]. [address] [place] [address]. All rights reserved. This information is not intended as a substitute for professional medical care. Always follow yourhealthcare professional's instructions. Follow Up Care 01/02/2023 09:46:55 With:DO JODI ETIENNE DO Address: [address] [place] [address] [address] [place] [address] When:2-4 days [facility] 09-28-2023 Note Discharge Instructions Thank you for allowing [facility] to assist you with your healthcare needs. The following is importantdischarge information regarding your hospital visit. Diagnosis from Today's Visit Hip pain Hip pain-swelling What to Do Next Instructions from Your Care Team No qualifying data available. Post Acute Orders No qualifying data available. You Need to Schedule the Following Appointments Follow Up with DO JODI ETIENNE DO When Within 2-4 days Where: [address] [place] [address] [address] [place] [address] Allergies aspirin Medications Please ask your primary doctor or pharmacist before taking any other medication not listed, including over the counter drugs, herbal medications, vitamins and or supplements as they may interact withyour home medications. What How Much When Instructions Last Dose New naproxen (naproxen 250 mg oral tablet) 1 tab(s) by mouth Two (2) times a day Duration: 10 Days Printed Prescription Unchanged cephalexin (cephalexin 500 mg oral capsule) 1 cap by mouth Four (4) times a day Duration: 7 Days Unchanged cyclobenzaprine (cyclobenzaprine 10 mg oral tablet) 1 tab(s) by mouth Three (3) times a day as needed for for muscle spasm Duration: 5 Days Unchanged furosemide (Lasix 20 mg oral tablet) 1 tab(s) by mouth Once a day Unchanged gabapentin (gabapentin 600 mg oral tablet) 1 tab(s) by mouth Three (3) times a day Unchanged glimepiride (glimepiride 2 mg oral tablet) 1 tab(s) by mouth Once a day Unchanged indomethacin (indomethacin 50 mg oral capsule) 1 cap by mouth Three (3) times a day with meals as needed for for pain Duration: 5 Days Take with food/ milk. Unchanged lisinopril (lisinopril 20 mg oral tablet) 1 tab(s) by mouth Once a day Unchanged metFORMIN (MetFORMIN (Eqv-Fortamet) 1000 mg oral tablet, EXTENDED RELEASE) 1 tab(s) by mouth Two (2) times a day Unchanged rOPINIRole (rOPINIRole 1 mg oral tablet) 1 tab(s) by mouth Three (3) times a day Unchanged simvastatin (simvastatin 10 mg oral tablet) Please take this list to your next doctor s visit. Bring all medications you take, including over the counter medications, herbals and other supplements with you to your doctor s visit. Patients and families are reminded to discard old lists and to update any records with all medication providers or retail pharmacies. Medication Leaflets naproxen (na PROX en) Aleve, Aleve Back and Muscle Pain, Aleve Easy Open Arthritis, Aleve Liquid Gels, Anaprox-DS, EC-Naprosyn, Naprelan, Naprosyn What is the most important information I should know about naproxen? Naproxen can increase your risk of fatal heart attack or stroke. Do not use this medicine just before or after heart bypass surgery (coronary artery bypass graft, or CABG). Naproxen may also cause stomach or intestinal bleeding, which can be fatal. What is naproxen? Naproxen is a nonsteroidal anti-inflammatory drug (NSAID). Naproxen is used to treat pain or inflammation caused by conditions such as arthritis, ankylosing spondylitis, tendinitis, bursitis, gout, or menstrual cramps. The delayed-release or extended-release tablets are slower-acting forms of naproxen that are used only for treating chronic conditions such as arthritis or ankylosing spondylitis. These forms of naproxen will not work fast enough to treat acute pain. Naproxen may also be used for purposes not listed in this medication guide. What should I discuss with my healthcare provider before taking naproxen? Naproxen can increase your risk of fatal heart attack or stroke, even if you don't have any risk factors. Do not use this medicine just before or after heart bypass surgery (coronary artery bypass graft, or CABG). Naproxen may also cause stomach or intestinal bleeding, which can be fatal. These conditions can occur without warning while you are using naproxen, especially in older adults. You should not use naproxen if you are allergic to it, or if you have ever had an asthma attack or severe allergic reaction after taking aspirin or an NSAID. Ask a doctor before giving naproxen to a child younger than 12 years old. Ask a doctor or pharmacist if this medicine is safe to use if you have: heart disease, high blood pressure, high cholesterol, diabetes, or if you smoke; a heart attack, stroke, or blood clot; stomach ulcers or bleeding; asthma; liver or kidney disease; fluid retention; or if you take aspirin to prevent heart attack or stroke. If you are , you should not take naproxen unless your doctor tells you to. Taking an NSAID during the last 20 weeks of can cause serious heart or kidney problems in the unborn baby and possible complications with your . It may not be safe to breastfeed while using this medicine. Ask your doctor about any risk. How should I take naproxen? Use exactly as directed on the label, or as prescribed by your doctor. Use the lowest dose that is effective in treating your condition. Shake the oral suspension (liquid) before you measure a dose. Measure a dose with the supplied measuring device (not a kitchen spoon). Take this medicine with food or milk if it upsets your stomach. Always follow directions on the medicine label about giving this medicine to a child. Naproxen doses are based on weight in children. Your child's dose needs may change if the child gains or loses weight. If you use naproxen long-term, you may need frequent medical tests. This medicine can affect the results of certain medical tests. Tell any doctor who treats you that you are using naproxen. Store at room temperature away from moisture, heat, and light. Keep the bottle tightly closed when not in use. What happens if I miss a dose? Since naproxen is used when needed, you may not be on a dosing schedule. Skip any missed dose if it's almost time for your next dose. Do not use two doses at one time. What happens if I overdose? Seek emergency medical attention or call the Poison Help line at . What should I avoid while taking naproxen? Avoid drinking alcohol. It may increase your risk of stomach bleeding. Avoid taking aspirin or other NSAIDs unless your doctor tells you to. Ask a doctor or pharmacist before using other medicines for pain, fever, swelling, or cold/flu symptoms. They may contain ingredients similar to naproxen (such as aspirin, ibuprofen, or ketoprofen). Ask your doctor before using an antacid, and use only the type your doctor recommends. Some antacids can make it harder for your body to absorb naproxen. What are the possible side effects of naproxen? Get emergency medical help if you have signs of an allergic reaction (runny or stuffy nose, wheezing or trouble breathing, hives, swelling in your face or throat) or a severe skin reaction (fever, sore throat, burning eyes, skin pain, red or purple skin rash with blistering and peeling). Stop using naproxen and seek medical treatment if you have a serious drug reaction that can affect many parts of your body. Symptoms may include skin rash, fever, swollen glands, muscle aches, severeweakness, unusual bruising, or yellowing of your skin or eyes. Get emergency medical help if you have signs of a heart attack or stroke: chest pain spreading to your jaw or shoulder, sudden numbness or weakness on one side of the body, slurred speech, leg swelling, feeling short of breath. Stop using naproxen and call your doctor at once if you have: shortness of breath (even with mild exertion); swelling or rapid weight gain; the first sign of any skin rash or blister, no matter how mild; signs of stomach bleeding--bloody or tarry stools, coughing up blood or vomit that looks like coffee grounds; liver problems--nausea, upper stomach pain, loss of appetite, dark urine, jarad- colored stools, jaundice (yellowing of the skin or eyes); kidney problems--little or no urination, painful urination, swelling in your feet or ankles; or low red blood cells (anemia)--pale skin, unusual tiredness, feeling light-headed or short of breath, cold hands and feet. Common side effects may include: headache; indigestion, heartburn, stomach pain; or flu symptoms; This is not a complete list of side effects and others may occur. Call your doctor for medical advice about side effects. You may report side effects to FDA at 2-046-EYA-1252. What other drugs will affect naproxen? Ask your doctor before using naproxen if you take an antidepressant. Taking certain antidepressantswith an NSAID may cause you to bruise or bleed easily. Ask a doctor or pharmacist before using naproxen with any other medications, especially: other NSAIDs or salicylates (diflunisal, salsalate); antacids and sucralfate; cholestyramine; cyclosporine; digoxin; lithium; methotrexate; pemetrexed; probenecid; warfarin (Coumadin, Jantoven) or similar blood thinners; a diuretic or 'water pill'; or heart or blood pressure medication. This list is not complete. Other drugs may affect naproxen, including prescription and oikf-ghz-lcrnhia medicines, vitamins, and herbal products. Not all possible drug interactions are listed here. Where can I get more information? Your pharmacist can provide more information about naproxen. Remember, keep this and all other medicines out of the reach of children, never share your medicines with others, and use this medication only for the indication prescribed. Every effort has been made to ensure that the information provided by [employer] ('[employer]') is accurate, up-to-date, and complete, but no guarantee is made to that effect. Drug information contained herein may be time sensitive. [employer] information has been compiled for use by healthcare practitioners and consumers in the [place] and therefore [employer] does not warrant that uses outside of the [place] are appropriate, unless specifically indicated otherwise. [employer] drug information does not endorse drugs, diagnose patients or recommend therapy. [employer] drug information isan informational resource designed to assist licensed healthcare practitioners in caring for their p atients and/or to serve consumers viewing this service as a supplement to, and not a substitute for, the expertise, skill, knowledge and judgment of healthcare practitioners. The absence of a warningfor a given drug or drug combination in no way should be construed to indicate that the drug or drug combination is safe, effective or appropriate for any given patient. [employer] does not assume any responsibility for any aspect of healthcare administered with the aid of information [employer] provides. The information contained herein is not intended to cover all possible uses, directions, precautions, warnings, drug interactions, allergic reactions, or adverse effects. If you have questions about the drugs you are taking, check with your doctor, nurse or pharmacist. Copyright 7139-6309 [employer]. Version: 22.. Revision Date: 11/07/2022. Education Materials Hip Strain You have a strain of the muscles around the hip joint. A muscle strain is a stretching or tearing of muscle fibers. This causes pain, especially when you move that muscle. There may also be some swelling and bruising. Home care Stay off the injured leg as much as possible until you can walk on it without pain. If you have a lot of pain with walking, crutches or a walker may be prescribed. These can be rented or purchased [facility]ies and surgical or orthopedic supply stores. Follow your healthcare provider's advice about when to start putting weight on that leg. Apply an ice pack over the injured area for 15 to 20 minutes every 3 to 6 hours. Do this for the first 24 to 48 hours. You can make an ice pack by filling a plastic bag that seals at the top with icecubes and then wrapping it with a thin towel. Be careful not to injure your skin with the ice treatments. Ice should never be applied directly to skin. Continue the use of ice packs for relief of pain and swelling as needed. After 48 hours, apply heat (warm shower or warm bath) for 15 to 20 minutesseveral times a day, or alternate ice and heat. You may use rwvi-xri-sjuazit pain medicine to control pain, unless another pain medicine was prescribed. If you have chronic liver or kidney disease or ever had a stomach ulcer or gastrointestinal bleeding, talk with your healthcare provider before using these medicines. If you play sports, you may resume these activities when you are able to hop and run on the injuredleg without pain. Follow-up care Follow up with your healthcare provider, or as advised. If your symptoms don't start to get better after a week, more tests may be needed. If X-rays were taken, you will be told of any new findings that may affect your care. When to seek medical advice Call your healthcare provider right away if any of these occur: Increased swelling or bruising Increased pain Losing the ability to put weight on the injured side [id number] [employer]. [address] [place] [address]. All rights reserved. This information is not intended as a substitute for professional medical care. Always follow yourhealthcare professional's instructions. Additional Information VACCINATE! IT SAVES LIVES! Members of the community who have not yet received the COVID-19 vaccine and would like to receive it can visit one of [facility] vaccine clinics. There are many vaccine clinic locations within the [facility]. For locations and available times, please visit www.[email or web address].[place].gov/. It is important to note that some COVID mobile vaccine clinics are held outdoors and may be canceled in rainy or stormy conditions. To learn more about pediatric vaccinations (ages 5-11), we invite you to visit the [facility] webpage. https://www.[email or web address].org/pages/8542-Ftxgc-Ugwurjhcvbt-Fjyezrpqva-Zdbhe-Bmt stions.htmlTo learn more about the COVID-19 vaccine, we invite you to visit the CDC website for a list of frequently asked questions. https://www.cdc.gov/coronavirus/2019-ncov/vaccines/faq.html [email or web address] Patient Portal Access Instructions: Stay connected with your healthcare team and access your personal medical information anytime with the [facility] Patient Portal. If you would like a full copy of your medical records please contact the [facility] Medical Records Department Friday through Friday between 8a.m. and 4:30p.m. Please follow the directions below to access the portal: 1.Access the email account you provided upon registration to the [facility].2.Look for an invitation email from [facility].3.Open the email and access the invitation link: Accept Invitation to [facility]4.Fill in the required allen to create your account. Sign into [email or web address] with your username and password that you created in the above steps to stay up to date. You can then view a summary of results, a summary of your visits, and the ability to download your summaries to your computer or send the information securely to a physician. Remember that your healthcare information is confidential, so carefully consider who you will allow to register on the [facility] Patient Portal for access to your information. You can also access the [facility] Patient Portal on the [employer]. Simply click on Health Records under [employer] and then click on the [email or web address] logo. HOW TO SAFELY DISPOSE OF PRESCRIPTION MEDICATIONS Please use one of the following methods to safely dispose of your unused medications. 1.Use a drug disposal kit: the drug disposal pouch allows you to safely discard your old and unuseddrugs. Ask your nurse to give you one when you are discharged.2.Visit a local take-back location: Many local pharmacies and police departments have programs that collect old and unwanted prescriptiondrugs. Call your local pharmacy or go to http://bit.Photo Rankr/5U7Ho4a to find one close to you.3.Make use of household items: Use cat litter or old coffee grounds to dispose medications if other options arenot available. Mix your drugs with these household products, seal them in an airtight container andthrow it into the garbage. Call [facility]: [phone] to be sure your drugs can be disposed of in this way. Some medicines may require a different approach.4.Never flush your medications down the toilet. IF YOU HAVE BEEN PRESCRIBED AN OPIOIDS FOR PAIN If you have been prescribed an opioid (such as hydrocodone, oxycodone or morphine), it is critical to understand the possible side effects and risks of opioid pain medications. Even when taken as directed, opioids can have several side effects including: Tolerance, meaning you might need to take more of a medication for the same pain relief. Nausea, vomiting and/or constipation. Sleepiness, dizziness, dry mouth, confusion, depression or itching. Physical dependence, meaning you have withdrawal symptoms when a medication is stopped ? this can develop within a few days. KNOW YOUR RESPONSIBILITIES It is important to know exactly how much and how often to take the opioid pain medications you are prescribed. Never take opioids in higher amounts or more often than prescribed. Do not combine opioids with alcohol or other drugs that cause drowsiness, such as benzodiazepines, also known as benzos,including diazepam and alprazolam, muscle relaxants or sleep aids. Never sell or share prescriptionopioids. This is illegal. Store opioids in a secure place and out of reach of others (including children, family, friends and visitors). The last page(s) of this document has been signed and retained as a CHART COPY Signatures Patient Education Materials Hip Strain Medication Leaflets naproxen My discharge plan and instructions have been reviewed and explained to me and I,BALJIT HYATT JR, YUSEF understand my current condition and have read and understand these discharge instructions. I have received a written copy of the plan/instructions. If I have questions, I am aware that I should contact my doctor. 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 No acute fracture or dislocation is identified. Moderately severe narrowing of the bilateral hip joints noted. Degenerative changes involve the bilateral, right greater than left sacroiliac joints. Ankylosis of the pubic symphysis noted. IMPRESSION: No acute fracture or dislocation. Widespread degenerative changes as described with moderately severe narrowing of the bilateral hip joints. 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 Interpreted by: Dino Rainey MD Preliminary Report By: Dino Rainey MD Electronically signed By Dino Rainey MD Dictated Date: 01/02/2023 10:55:26 AM Prelim Date: 01/02/2023 10:58:21 AM Sign Date: 01/02/2023 10:58:21 AM [facility]ing [facility] Discharge instructions Patient Education 09/21/2022 11:24:40 Cellulitis Skin Infection Cellulitis Cellulitis is an infection of the deep layers of skin. A break in the skin, such as a cut or scratch, can let bacteria under the skin. If the bacteria get to deep layers of the skin, it can be serious. If not treated, cellulitis can get into the bloodstream and lymph nodes. The infection can then spread throughout the body. This causes serious illness. Cellulitis causes the affected skin to become red, swollen, warm, and sore. The reddened areas havea visible border. An open sore may leak fluid (pus). You may have a fever, chills, and pain. Cellulitis is treated with antibiotics taken for 7 to 10 days. An open sore may be cleaned and covered with cool wet gauze. Symptoms should get better 1 to 2 days after treatment is started. Make sure to take all the antibiotics for the full number of days until they are gone. Keep taking the medicine even if your symptoms go away. Home care Follow these tips: Limit the use of the part of your body with cellulitis. If the infection is on your leg, keep your leg raised while sitting. This will help to reduce swelling. Take all of the antibiotic medicine exactly as directed until it is gone. Do not miss any doses, especially during the first 7 days. Don t stop taking the medicine when your symptoms get better. Keep the affected area clean and dry. Wash your hands with soap and warm water before and after touching your skin. Anyone else who touches your skin should also wash his or her hands. Don't share towels. Follow-up care Follow up with your healthcare provider, or as advised. If your infection does not go away on the first antibiotic, your healthcare provider will prescribe a different one. When to seek medical advice Call your healthcare provider right away if any of these occur: Red areas that spread Swelling or pain that gets worse Fluid leaking from the skin (pus) Fever higher of 100.4 F (38.0 C) or higher after 2 days on antibiotics 0714-4576 The [employer]. [address] [place] [address]. All rights reserved. This information is not intended as a substitute for professional medical care. Always follow yourhealthcare professional's instructions. Follow Up Care 09/21/2022 11:04:14 With:GUADALUPE RUGGIERO MD Address: [address] [place] [phone] When:2-4 days [facility] 06-17-2023 Note Discharge Instructions Thank you for allowing [facility] to assist you with your healthcare needs. The following is importantdischarge information regarding your hospital visit. Diagnosis from Today's Visit Cellulitis Leg ulcer What to Do Next Instructions from Your Care Team No qualifying data available. Post Acute Orders No qualifying data available. You Need to Schedule the Following Appointments Follow Up with GUADALUPE RUGGIERO MD When Within 2-4 days Where: [address] [place] [phone] Allergies aspirin Medications Please ask your primary doctor or pharmacist before taking any other medication not listed, including over the counter drugs, herbal medications, vitamins and or supplements as they may interact withyour home medications. What How Much When Why Instructions Last Dose New doxycycline (doxycycline hyclate 100 mg oral capsule) 1 cap by mouth Two (2) times a day Cellulitis Duration: 10 Days Printed Prescription Unchanged cephalexin (cephalexin 500 mg oral capsule) 1 cap by mouth Four (4) times a day Duration: 7 Days Unchanged cyclobenzaprine (cyclobenzaprine 10 mg oral tablet) 1 tab(s) by mouth Three (3) times a day as needed for for muscle spasm Duration: 5 Days Unchanged furosemide (Lasix 20 mg oral tablet) 1 tab(s) by mouth Once a day Unchanged gabapentin (gabapentin 600 mg oral tablet) 1 tab(s) by mouth Three (3) times a day Unchanged glimepiride (glimepiride 2 mg oral tablet) 1 tab(s) by mouth Once a day Unchanged indomethacin (indomethacin 50 mg oral capsule) 1 cap by mouth Three (3) times a day with meals as needed for for pain Duration: 5 Days Take with food/ milk. Unchanged lisinopril (lisinopril 20 mg oral tablet) 1 tab(s) by mouth Once a day Unchanged metFORMIN (MetFORMIN (Eqv-Fortamet) 1000 mg oral tablet, EXTENDED RELEASE) 1 tab(s) by mouth Two (2) times a day Unchanged rOPINIRole (rOPINIRole 1 mg oral tablet) 1 tab(s) by mouth Three (3) times a day Unchanged simvastatin (simvastatin 10 mg oral tablet) Please take this list to your next doctor s visit. Bring all medications you take, including over the counter medications, herbals and other supplements with you to your doctor s visit. Patients and families are reminded to discard old lists and to update any records with all medication providers or retail pharmacies. Education Materials Cellulitis Cellulitis is an infection of the deep layers of skin. A break in the skin, such as a cut or scratch, can let bacteria under the skin. If the bacteria get to deep layers of the skin, it can be serious. If not treated, cellulitis can get into the bloodstream and lymph nodes. The infection can then spread throughout the body. This causes serious illness. Cellulitis causes the affected skin to become red, swollen, warm, and sore. The reddened areas havea visible border. An open sore may leak fluid (pus). You may have a fever, chills, and pain. Cellulitis is treated with antibiotics taken for 7 to 10 days. An open sore may be cleaned and covered with cool wet gauze. Symptoms should get better 1 to 2 days after treatment is started. Make sure to take all the antibiotics for the full number of days until they are gone. Keep taking the medicine even if your symptoms go away. Home care Follow these tips: Limit the use of the part of your body with cellulitis. If the infection is on your leg, keep your leg raised while sitting. This will help to reduce swelling. Take all of the antibiotic medicine exactly as directed until it is gone. Do not miss any doses, especially during the first 7 days. Don t stop taking the medicine when your symptoms get better. Keep the affected area clean and dry. Wash your hands with soap and warm water before and after touching your skin. Anyone else who touches your skin should also wash his or her hands. Don't share towels. Follow-up care Follow up with your healthcare provider, or as advised. If your infection does not go away on the first antibiotic, your healthcare provider will prescribe a different one. When to seek medical advice Call your healthcare provider right away if any of these occur: Red areas that spread Swelling or pain that gets worse Fluid leaking from the skin (pus) Fever higher of 100.4 F (38.0 C) or higher after 2 days on antibiotics [id number] The [employer]. [address] [place] [address]. All rights reserved. This information is not intended as a substitute for professional medical care. Always follow yourhealthcare professional's instructions. Additional Information VACCINATE! IT SAVES LIVES! Members of the community who have not yet received the COVID-19 vaccine and would like to receive it can visit one of [facility] vaccine clinics. There are many vaccine clinic locations within the [facility]. For locations and available times, please visit [email or web address]/. It is important to note that some COVID mobile vaccine clinics are held outdoors and may be canceled in rainy or stormy conditions. To learn more about pediatric vaccinations (ages 5-11), we invite you to visit the [facility] webpage. [email or web address] learn more about the COVID-19 vaccine, we invite you to visit the CDC website for a list of frequently asked questions. https://www.cdc.gov/coronavirus/2019-ncov/vaccines/faq.html [facility] [email or web address] Patient Portal Access Instructions: Stay connected with your healthcare team and access your personal medical information anytime with the [employer] Patient Portal. If you would like a full copy of your medical records please contact the [facility] Medical Records Department Friday through Friday between 8a.m. and 4:30p.m. Please follow the directions below to access the portal: 1.Access the email account you provided upon registration to the [facility].2.Look for an invitation email from [facility].3.Open the email and access the invitation link: Accept Invitation to [facility]4.Fill in the required allen to create your account. Sign into [email or web address] with your username and password that you created in the above steps to stay up to date. You can then view a summary of results, a summary of your visits, and the ability to download your summaries to your computer or send the information securely to a physician. Remember that your healthcare information is confidential, so carefully consider who you will allow to register on the [employer] Patient Portal for access to your information. You can also access the [employer] Patient Portal on the [employer]. Simply click on Health Records under [employer] and then click on the [email or web address] logo. HOW TO SAFELY DISPOSE OF PRESCRIPTION MEDICATIONS Please use one of the following methods to safely dispose of your unused medications. 1.Use a drug disposal kit: the drug disposal pouch allows you to safely discard your old and unuseddrugs. Ask your nurse to give you one when you are discharged.2.Visit a local take-back location: Many local pharmacies and police departments have programs that collect old and unwanted prescriptiondrugs. Call your local pharmacy or go to http://bit.Photo Rankr/8C1Qv6d to find one close to you.3.Make use of household items: Use cat litter or old coffee grounds to dispose medications if other options arenot available. Mix your drugs with these household products, seal them in an airtight container andthrow it into the garbage. Call [facility]: [phone] to be sure your drugs can be disposed of in this way. Some medicines may require a different approach.4.Never flush your medications down the toilet. IF YOU HAVE BEEN PRESCRIBED AN OPIOIDS FOR PAIN If you have been prescribed an opioid (such as hydrocodone, oxycodone or morphine), it is critical to understand the possible side effects and risks of opioid pain medications. Even when taken as directed, opioids can have several side effects including: Tolerance, meaning you might need to take more of a medication for the same pain relief. Nausea, vomiting and/or constipation. Sleepiness, dizziness, dry mouth, confusion, depression or itching. Physical dependence, meaning you have withdrawal symptoms when a medication is stopped ? this can develop within a few days. KNOW YOUR RESPONSIBILITIES It is important to know exactly how much and how often to take the opioid pain medications you are prescribed. Never take opioids in higher amounts or more often than prescribed. Do not combine opioids with alcohol or other drugs that cause drowsiness, such as benzodiazepines, also known as benzos,including diazepam and alprazolam, muscle relaxants or sleep aids. Never sell or share prescriptionopioids. This is illegal. Store opioids in a secure place and out of reach of others (including children, family, friends and visitors). The last page(s) of this document has been signed and retained as a CHART COPY Signatures Patient Education Materials Cellulitis Skin Infection Medication Leaflets My discharge plan and instructions have been reviewed and explained to me and I,BALJIT HYATT, YUSEF understand my current condition and have read and understand these discharge instructions. I have received a written copy of the plan/instructions. If I have questions, I am aware that I should contactmy doctor. 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 Stay home except to get medical care. Stay home. Most people with COVID-19 have mild illness and are able to recover at home without medical care. Do not leave your home, except to get medical care. Do not visit public areas. Take care of yourself. Get rest and stay hydrated. Get medical care when needed. Call your doctor before you go to their office for care. But, if you have trouble breathing or other concerning symptoms, call 911 for immediate help. Avoid public transportation, ride-sharing, or taxis. Separate yourself from other people and pets in your home. As much as possible, stay in a specific room and away from other people and pets in your home. Also, you should use a separate bathroom, if available. If you need to be around other people or animalsin or outside of the home, wear a cloth face covering. See COVID-19 and Animals if you have questions about pets: https://www.cdc.gov/coronavirus/2019ncov/faq.html#XKFKV80gpdcdta Monitor your symptoms. Common symptoms of COVID-19 include fever and cough. Trouble breathing is a more serious symptom that means you should get medical attention. Follow care instructions from your healthcare provider and local health department. Your local health authorities will give instructions on checking your symptoms and reporting information. If you develop emergency warning signs for COVID-19 get medical attention immediately. Emergency warning signs include*: Trouble breathing Persistent pain or pressure in the chest New confusion or not able to be woken Bluish lips or face *This list is not all inclusive. Please consult your medical provider for any other symptoms that are severe or concerning to you. Call 911 if you have a medical emergency. If you have a medical emergency and need to call 911, notify the operator maintainer that you have or think you might have, COVID-19. If possible, put on a facemask before medical help arrives Call ahead before visiting your doctor. Call ahead. Many medical visits for routine care are being postponed or done by phone or telemedicine. If you have a medical appointment that cannot be postponed, call your doctor s office. This will help the office protect themselves and other patients. If you are sick, wear a cloth covering over your nose and mouth. You should wear a cloth face covering over your nose and mouth if you must be around other people or animals, including pets (even at home). You don t need to wear the cloth face covering if you are alone. If you can t put on a cloth face covering (because of trouble breathing for example), cover your coughs and sneezes in some other way.Try to stay at least 6 feet away from other people. This will help protect the people around you. Note: During the COVID-19 pandemic, medical grade facemasks are reserved for healthcare workers andsome first responders. You may need to make a cloth face covering using a scarf or bandana. Cover your coughs and sneezes. Cover your mouth and nose with a tissue when you cough or sneeze. Throw used tissues in a lined trash can. Immediately wash your hands with soap and water for at least 20 seconds. If soap and water are not available, clean your hands with an alcohol-based hand employment officer that contains at least 60% alcohol. Clean your hands often. Wash your hands often with soap and water for at least 20 seconds. This is especially important after blowing your nose, coughing, or sneezing; going to the bathroom; and before eating or preparing food. Use hand employment officer if soap and water are not available. Use an alcohol-based hand employment officer with atleast 60% alcohol, covering all surfaces of your hands and rubbing them together until they feel dry. Soap and water are the best option, especially if your hands are visibly dirty. \ Avoid touching your eyes, nose, and mouth with unwashed hands. Avoid sharing personal household items. Do not share dishes, drinking glasses, cups, eating utensils, towels, or bedding with other people in your home. Wash these items thoroughly after using them with soap and water or put them in the volunteer recruitment coordinator. Clean all high-touch surfaces everyday. Clean and disinfect high-touch surfaces in your sick room and bathroom. Let someone else clean and disinfect surfaces in common areas, but not your bedroom and bathroom. If a caregiver or other person needs to clean and disinfect a sick person s bedroom or bathroom, they should do so on an as-needed basis. The caregiver/other person should wear a mask and wait as long as possible after the sick person has used the bathroom High-touch surfaces include phones, remote controls, counters, tabletops, doorknobs, bathroom fixtures, toilets, keyboards, tablets, and bedside tables. Clean and disinfect areas that may have blood, stool, or body fluids on them. Use household poundmaster and disinfectants. Clean the area or item with soap and water or another detergent if it is dirty. Then use a household disinfectant. Be sure to follow the instructions on the label to ensure safe and effective use of the product. Many products recommend keeping the surface wet for several minutes to ensure germs are killed. Many also recommend precautions such as wearing gloves and making sure you have good ventilation during use of the product. Most EPA-registered household disinfectants should be effective. How to discontinue home isolation. People with COVID-19 who have stayed home (home isolated) can stop home isolation under the following conditions: If you will not have a test to determine if you are still contagious, you can leave home after these three things have happened: You have had no fever for at least 72 hours (that is three full days of no fever without the use ofmedicine that reduces fevers) AND other symptoms have improved (for example, when your cough or shortness of breath has improved) AND at least 10 days have passed since your symptoms first appeared. If you will be tested to determine if you are still contagious, you can leave home after these three things have happened: You no longer have a fever (without the use of medicine that reduces fevers) AND other symptoms have improved (for example, when your cough or shortness of breath has improved) AND you received two negative tests in a row, 24 hours apart. Your doctor will follow CDC guidelines. In all cases, follow the guidance of your healthcare provider and local health department. The decision to stop home isolation should be made in consultation with your healthcare provider and state and local health departments. Local decisions depend on local circumstances. cdc.gov/coronavirus 11/05/2021 07:21:44 Hypertension, Established Established High Blood Pressure High blood pressure (hypertension) is a chronic disease. Often, healthcare providers don t know what causes it. But it can be caused by certain health conditions and medicines. If you have high blood pressure, you may not have any symptoms. If you do have symptoms, they may include headache, dizziness, changes in your vision, chest pain, and shortness of breath. But even without symptoms, high blood pressure that s not treated raises your risk for heart attack, heart failure, and stroke. High blood pressure is a serious health risk and shouldn t be ignored. Blood pressure measurements are given as 2 numbers. Systolic blood pressure is the upper number. This is the pressure when the heart contracts. Diastolic blood pressure is the lower number. This is the pressure when the heart relaxes between beats. You will see your blood pressure readings written together. For example, a person with a systolic pressure of 118 and a diastolic pressure of 78 will have 118/78 written in the medical record. Blood pressure is categorized as normal, elevated, or stage 1 or stage 2 high blood pressure: Normal blood pressure is systolic of less than 120 and diastolic of less than 80 (120/80) Elevated blood pressure is systolic of 120 to 129 and diastolic less than 80 Stage 1 high blood pressure is systolic is 130 to 139 or diastolic between 80 to 89 Stage 2 high blood pressure is when systolic is 140 or higher or the diastolic is 90 or higher Home care If you have high blood pressure, follow these home care guidelines to help lower your blood pressure. If you are taking medicines for high blood pressure, these methods may reduce or end your need for medicines in the future. Start a weight-loss program if you are overweight. Cut back on how much salt you get in your diet. Here s how to do this: oDon t eat foods that have a lot of salt. These include olives, pickles, smoked meats, and salted potato chips. oDon t add salt to your food at the table. oUse only small amounts of salt when cooking. Start an exercise program. Talk with your healthcare provider about the type of exercise program that would be best for you. It doesn't have to be hard. Even brisk walking for 20 minutes 3 times a week is a good form of exercise. Don t take medicines that stimulate the heart. This includes many omqx-lmw-dvzeoyz cold and sinus decongestant pills and sprays, as well as diet pills. Check the warnings about high blood pressure onthe label. Before buying any ywvy-sky-fzfijkn medicines or supplements, always ask the pharmacist about the product's potential interaction with your high blood pressure and your high blood pressure medicines. Stimulants such as amphetamine or cocaine could be deadly for someone with high blood pressure. Never take these. Limit how much caffeine you get in your diet. Switch to caffeine-free products. Stop smoking. If you are a long-time smoker, this can be hard. Talk to your healthcare provider about medicines and nicotine replacement options to help you. Also, enroll in a stop-smoking program tomake it more likely that you will quit for good. Learn how to handle stress. This is an important part of any program to lower blood pressure. Learnabout relaxation methods like meditation, yoga, or biofeedback. If your provider prescribed medicines, take them exactly as directed. Missing doses may cause your blood pressure get out of control. If you miss a dose or doses, check with your healthcare provider or pharmacist about what to do. Consider buying an automatic blood pressure machine to check your blood pressure at home. Ask your provider for a recommendation. You can get one of these at most pharmacies. The [place] [employer] recommends the following guidelines for home blood pressure monitoring: Don't smoke or drink coffee for 30 minutes before taking your blood pressure. Go to the bathroom before the test. Relax for 5 minutes before taking the measurement. Sit with your back supported (don't sit on a couch or soft chair); keep your feet on the floor uncrossed. Place your arm on a solid flat surface (like a table) with the upper part of the arm at heartlevel. Place the middle of the cuff directly above the bend of the elbow. Check the monitor's instruction manual for an illustration. Take multiple readings. When you measure, take 2 to 3 readings one minute apart and record all of the results. Take your blood pressure at the same time every day, or as your healthcare provider recommends. Record the date, time, and blood pressure reading. Take the record with you to your next medical appointment. If your blood pressure monitor has a built-in memory, simply take the monitor with you to your next appointment. Call your provider if you have several high readings. Don't be frightened by a single high blood pressure reading, but if you get several high readings, check in with your healthcare provider. Note: When blood pressure reaches a systolic (top number) of 180 or higher OR diastolic (bottom number) of 110 or higher, seek emergency medical treatment. Follow-up care You will need to see your healthcare provider regularly. This is to check your blood pressure and to make changes to your medicines. Make a follow-up appointment as directed. Bring the record of yourhome blood pressure readings to the appointment. When to seek medical advice Call your healthcare provider right away if any of these occur: Blood pressure reaches a systolic (upper number) of 180 or higher OR a diastolic (bottom number) of110 or higher Chest pain or shortness of breath Severe headache Throbbing or rushing sound in the ears Nosebleed Sudden severe pain in your belly (abdomen) Extreme drowsiness, confusion, or fainting Dizziness or spinning sensation (vertigo) Weakness of an arm or leg or one side of the face You have problems speaking or seeing 3925-9830 [employer]. [address] [place] [address]. All rights reserved. This information is not intended as a substitute for professional medical care. Always follow yourhealthcare professional's instructions. Follow Up Care 11/05/2021 06:35:58 With:your pcp Address:Unknown When:2-4 days Comments:Schedule appointment as soon as possibleReturn to ED if symptoms worsenCall back to ER in 4 hrs forcovid results and if positive discuss with your doctor today treatment options. Returt for shortness of breath signs of pneumonia [facility] 08-01-2022 Note Discharge Instructions Thank you for allowing [facility] to assist you with your healthcare needs. The following is importantdischarge information regarding your hospital visit. Diagnosis from Today's Visit Hypertension COVID-like symptoms What to Do Next Instructions from Your Care Team No qualifying data available. Post Acute Orders No qualifying data available. You Need to Schedule the Following Appointments Follow Up with your pcp When Within 2-4 days Why: Schedule appointment as soon as possible Return to ED if symptoms worsen Call back to ER in 4 hrs for covid results and if positive discuss with your doctor today treatmentoptions. Returt for shortness of breath signs of pneumonia Allergies aspirin Medications Please ask your primary doctor or pharmacist before taking any other medication not listed, including over the counter drugs, herbal medications, vitamins and or supplements as they may interact withyour home medications. What How Much When Instructions Last Dose Unchanged cephalexin (cephalexin 500 mg oral capsule) 1 cap by mouth Four (4) times a day Duration: 7 Days Unchanged cyclobenzaprine (cyclobenzaprine 10 mg oral tablet) 1 tab(s) by mouth Three (3) times a day as needed for for muscle spasm Duration: 5 Days Unchanged furosemide (Lasix 20 mg oral tablet) 1 tab(s) by mouth Once a day Unchanged gabapentin (gabapentin 600 mg oral tablet) 1 tab(s) by mouth Three (3) times a day Unchanged glimepiride (glimepiride 2 mg oral tablet) 1 tab(s) by mouth Once a day Unchanged indomethacin (indomethacin 50 mg oral capsule) 1 cap by mouth Three (3) times a day with meals as needed for for pain Duration: 5 Days Take with food/ milk. Unchanged lisinopril (lisinopril 20 mg oral tablet) 1 tab(s) by mouth Once a day Unchanged metFORMIN (MetFORMIN (Eqv-Fortamet) 1000 mg oral tablet, EXTENDED RELEASE) 1 tab(s) by mouth Two (2) times a day Unchanged rOPINIRole (rOPINIRole 1 mg oral tablet) 1 tab(s) by mouth Three (3) times a day Unchanged simvastatin (simvastatin 10 mg oral tablet) Please take this list to your next doctor s visit. Bring all medications you take, including over the counter medications, herbals and other supplements with you to your doctor s visit. Patients and families are reminded to discard old lists and to update any records with all medication providers or retail pharmacies. Education Materials Prevent the Spread of COVID-19 If You Are Sick Accessible version: https://www.cdc.gov/coronavirus/2019-ncov/vt-sdu-xxn-sick/gmzgh-daju-pdzz.html If you are sick with COVID-19 or think you might have COVID-19, follow the steps below to help protect other people in your home and community. Stay home except to get medical care. Stay home. Most people with COVID-19 have mild illness and are able to recover at home without medical care. Do not leave your home, except to get medical care. Do not visit public areas. Take care of yourself. Get rest and stay hydrated. Get medical care when needed. Call your doctor before you go to their office for care. But, if you have trouble breathing or other concerning symptoms, call 911 for immediate help. Avoid public transportation, ride-sharing, or taxis. Separate yourself from other people and pets in your home. As much as possible, stay in a specific room and away from other people and pets in your home. Also, you should use a separate bathroom, if available. If you need to be around other people or animalsin or outside of the home, wear a cloth face covering. See COVID-19 and Animals if you have questions about pets: https://www.cdc.gov/coronavirus/2019ncov/faq.html#LNOYR56bjnrykb Monitor your symptoms. Common symptoms of COVID-19 include fever and cough. Trouble breathing is a more serious symptom that means you should get medical attention. Follow care instructions from your healthcare provider and local health department. Your local health authorities will give instructions on checking your symptoms and reporting information. If you develop emergency warning signs for COVID-19 get medical attention immediately. Emergency warning signs include*: Trouble breathing Persistent pain or pressure in the chest New confusion or not able to be woken Bluish lips or face *This list is not all inclusive. Please consult your medical provider for any other symptoms that are severe or concerning to you. Call 911 if you have a medical emergency. If you have a medical emergency and need to call 911, notify the operator maintainer that you have or think you might have, COVID-19. If possible, put on a facemask before medical help arrives Call ahead before visiting your doctor. Call ahead. Many medical visits for routine care are being postponed or done by phone or telemedicine. If you have a medical appointment that cannot be postponed, call your doctor s office. This will help the office protect themselves and other patients. If you are sick, wear a cloth covering over your nose and mouth. You should wear a cloth face covering over your nose and mouth if you must be around other people or animals, including pets (even at home). You don t need to wear the cloth face covering if you are alone. If you can t put on a cloth face covering (because of trouble breathing for example), cover your coughs and sneezes in some other way.Try to stay at least 6 feet away from other people. This will help protect the people around you. Note: During the COVID-19 pandemic, medical grade facemasks are reserved for healthcare workers andsome first responders. You may need to make a cloth face covering using a scarf or bandana. Cover your coughs and sneezes. Cover your mouth and nose with a tissue when you cough or sneeze. Throw used tissues in a lined trash can. Immediately wash your hands with soap and water for at least 20 seconds. If soap and water are not available, clean your hands with an alcohol-based hand employment officer that contains at least 60% alcohol. Clean your hands often. Wash your hands often with soap and water for at least 20 seconds. This is especially important after blowing your nose, coughing, or sneezing; going to the bathroom; and before eating or preparing food. Use hand employment officer if soap and water are not available. Use an alcohol-based hand employment officer with atleast 60% alcohol, covering all surfaces of your hands and rubbing them together until they feel dry. Soap and water are the best option, especially if your hands are visibly dirty. \ Avoid touching your eyes, nose, and mouth with unwashed hands. Avoid sharing personal household items. Do not share dishes, drinking glasses, cups, eating utensils, towels, or bedding with other people in your home. Wash these items thoroughly after using them with soap and water or put them in the volunteer recruitment coordinator. Clean all high-touch surfaces everyday. Clean and disinfect high-touch surfaces in your sick room and bathroom. Let someone else clean and disinfect surfaces in common areas, but not your bedroom and bathroom. If a caregiver or other person needs to clean and disinfect a sick person s bedroom or bathroom, they should do so on an as-needed basis. The caregiver/other person should wear a mask and wait as long as possible after the sick person has used the bathroom High-touch surfaces include phones, remote controls, counters, tabletops, doorknobs, bathroom fixtures, toilets, keyboards, tablets, and bedside tables. Clean and disinfect areas that may have blood, stool, or body fluids on them. Use household poundmaster and disinfectants. Clean the area or item with soap and water or another detergent if it is dirty. Then use a household disinfectant. Be sure to follow the instructions on the label to ensure safe and effective use of the product. Many products recommend keeping the surface wet for several minutes to ensure germs are killed. Many also recommend precautions such as wearing gloves and making sure you have good ventilation during use of the product. Most EPA-registered household disinfectants should be effective. How to discontinue home isolation. People with COVID-19 who have stayed home (home isolated) can stop home isolation under the following conditions: If you will not have a test to determine if you are still contagious, you can leave home after these three things have happened: You have had no fever for at least 72 hours (that is three full days of no fever without the use ofmedicine that reduces fevers) AND other symptoms have improved (for example, when your cough or shortness of breath has improved) AND at least 10 days have passed since your symptoms first appeared. If you will be tested to determine if you are still contagious, you can leave home after these three things have happened: You no longer have a fever (without the use of medicine that reduces fevers) AND other symptoms have improved (for example, when your cough or shortness of breath has improved) AND you received two negative tests in a row, 24 hours apart. Your doctor will follow CDC guidelines. In all cases, follow the guidance of your healthcare provider and local health department. The decision to stop home isolation should be made in consultation with your healthcare provider and state and local health departments. Local decisions depend on local circumstances. cdc.gov/coronavirus Established High Blood Pressure High blood pressure (hypertension) is a chronic disease. Often, healthcare providers don t know what causes it. But it can be caused by certain health conditions and medicines. If you have high blood pressure, you may not have any symptoms. If you do have symptoms, they may include headache, dizziness, changes in your vision, chest pain, and shortness of breath. But even without symptoms, high blood pressure that s not treated raises your risk for heart attack, heart failure, and stroke. High blood pressure is a serious health risk and shouldn t be ignored. Blood pressure measurements are given as 2 numbers. Systolic blood pressure is the upper number. This is the pressure when the heart contracts. Diastolic blood pressure is the lower number. This is the pressure when the heart relaxes between beats. You will see your blood pressure readings written together. For example, a person with a systolic pressure of 118 and a diastolic pressure of 78 will have 118/78 written in the medical record. Blood pressure is categorized as normal, elevated, or stage 1 or stage 2 high blood pressure: Normal blood pressure is systolic of less than 120 and diastolic of less than 80 (120/80) Elevated blood pressure is systolic of 120 to 129 and diastolic less than 80 Stage 1 high blood pressure is systolic is 130 to 139 or diastolic between 80 to 89 Stage 2 high blood pressure is when systolic is 140 or higher or the diastolic is 90 or higher Home care If you have high blood pressure, follow these home care guidelines to help lower your blood pressure. If you are taking medicines for high blood pressure, these methods may reduce or end your need for medicines in the future. Start a weight-loss program if you are overweight. Cut back on how much salt you get in your diet. Here s how to do this: oDon t eat foods that have a lot of salt. These include olives, pickles, smoked meats, and salted potato chips. oDon t add salt to your food at the table. oUse only small amounts of salt when cooking. Start an exercise program. Talk with your healthcare provider about the type of exercise program that would be best for you. It doesn't have to be hard. Even brisk walking for 20 minutes 3 times a week is a good form of exercise. Don t take medicines that stimulate the heart. This includes many wvbg-bnd-wxefjza cold and sinus decongestant pills and sprays, as well as diet pills. Check the warnings about high blood pressure onthe label. Before buying any jmlc-lsl-zjqcptx medicines or supplements, always ask the pharmacist about the product's potential interaction with your high blood pressure and your high blood pressure medicines. Stimulants such as amphetamine or cocaine could be deadly for someone with high blood pressure. Never take these. Limit how much caffeine you get in your diet. Switch to caffeine-free products. Stop smoking. If you are a long-time smoker, this can be hard. Talk to your healthcare provider about medicines and nicotine replacement options to help you. Also, enroll in a stop-smoking program tomake it more likely that you will quit for good. Learn how to handle stress. This is an important part of any program to lower blood pressure. Learnabout relaxation methods like meditation, yoga, or biofeedback. If your provider prescribed medicines, take them exactly as directed. Missing doses may cause your blood pressure get out of control. If you miss a dose or doses, check with your healthcare provider or pharmacist about what to do. Consider buying an automatic blood pressure machine to check your blood pressure at home. Ask your provider for a recommendation. You can get one of these at most pharmacies. The [place] [employer] recommends the following guidelines for home blood pressure monitoring: Don't smoke or drink coffee for 30 minutes before taking your blood pressure. Go to the bathroom before the test. Relax for 5 minutes before taking the measurement. Sit with your back supported (don't sit on a couch or soft chair); keep your feet on the floor uncrossed. Place your arm on a solid flat surface (like a table) with the upper part of the arm at heartlevel. Place the middle of the cuff directly above the bend of the elbow. Check the monitor's instruction manual for an illustration. Take multiple readings. When you measure, take 2 to 3 readings one minute apart and record all of the results. Take your blood pressure at the same time every day, or as your healthcare provider recommends. Record the date, time, and blood pressure reading. Take the record with you to your next medical appointment. If your blood pressure monitor has a built-in memory, simply take the monitor with you to your next appointment. Call your provider if you have several high readings. Don't be frightened by a single high blood pressure reading, but if you get several high readings, check in with your healthcare provider. Note: When blood pressure reaches a systolic (top number) of 180 or higher OR diastolic (bottom number) of 110 or higher, seek emergency medical treatment. Follow-up care You will need to see your healthcare provider regularly. This is to check your blood pressure and to make changes to your medicines. Make a follow-up appointment as directed. Bring the record of [facility] blood pressure readings to the appointment. When to seek medical advice Call your healthcare provider right away if any of these occur: Blood pressure reaches a systolic (upper number) of 180 or higher OR a diastolic (bottom number) of110 or higher Chest pain or shortness of breath Severe headache Throbbing or rushing sound in the ears Nosebleed Sudden severe pain in your belly (abdomen) Extreme drowsiness, confusion, or fainting Dizziness or spinning sensation (vertigo) Weakness of an arm or leg or one side of the face You have problems speaking or seeing 5926-4021 [employer] [address] [place] [address], [place] [address]. All rights reserved. This information is not intended as a substitute for professional medical care. Always follow yourhealthcare professional's instructions. Additional Information VACCINATE! IT SAVES LIVES! Members of the community who have not yet received the COVID-19 vaccine and would like to receive it can visit one of [facility] vaccine clinics. There are many vaccine clinic locations within the [facility]. For locations and available times, please visit [email or web address]. It is important to note that some COVID mobile vaccine clinics are held outdoors and may be canceled in rainy orstormy conditions. To learn more about pediatric vaccinations (ages 5-11), we invite you to visit the [facility] webpage. [email or web address]/[email or web address] [email or web address] learn more about the COVID-19 vaccine, we invite you to visit the [facility] website for a list of frequently asked questions. [email or web address] Patient Portal Access Instructions: Stay connected with your healthcare team and access your personal medical information anytime with the [email or web address] Patient Portal. If you would like a full copy of your medical records please contact the [facility] Medical Records Department Friday through Friday between 8a.m. and 4:30p.m. Please follow the directions below to access the portal: 1.Access the email account you provided upon registration to the hospital.2.Look for an invitation email from [facility].3.Open the email and access the invitation link: Accept Invitation to [employer]4.Fill in the required allen to create your account. Sign into [email or web address] with your username and password that you created in the above steps to stay up to date. You can then view a summary of results, a summary of your visits, and the ability to download your summaries to your computer or send the information securely to a physician. Remember that your healthcare information is confidential, so carefully consider who you will allow to register on the [email or web address] Patient Portal for access to your information. You can also access the [employer] [facility] Patient Portal on the [employer] [facility]. Simply click on Health Records under [email or web address] and then click on the [facility] logo. HOW TO SAFELY DISPOSE OF PRESCRIPTION MEDICATIONS Please use one of the following methods to safely dispose of your unused medications. 1.Use a drug disposal kit: the drug disposal pouch allows you to safely discard your old and unuseddrugs. Ask your nurse to give you one when you are discharged.2.Visit a local take-back location: Many local pharmacies and police departments have programs that collect old and unwanted prescriptiondrugs. Call your local pharmacy or go to http://MailLift.Photo Rankr/4H6Xo9c to find one close to you.3.Make use of household items: Use cat litter or old coffee grounds to dispose medications if other options arenot available. Mix your drugs with these household products, seal them in an airtight container andthrow it into the garbage. Call [facility]: [phone] to be sure your drugs can be disposed of in this way. Some medicines may require a different approach.4.Never flush your medications down the toilet. IF YOU HAVE BEEN PRESCRIBED AN OPIOIDS FOR PAIN If you have been prescribed an opioid (such as hydrocodone, oxycodone or morphine), it is critical to understand the possible side effects and risks of opioid pain medications. Even when taken as directed, opioids can have several side effects including: Tolerance, meaning you might need to take more of a medication for the same pain relief. Nausea, vomiting and/or constipation. Sleepiness, dizziness, dry mouth, confusion, depression or itching. Physical dependence, meaning you have withdrawal symptoms when a medication is stopped ? this can develop within a few days. KNOW YOUR RESPONSIBILITIES It is important to know exactly how much and how often to take the opioid pain medications you are prescribed. Never take opioids in higher amounts or more often than prescribed. Do not combine opioids with alcohol or other drugs that cause drowsiness, such as benzodiazepines, also known as benzos,including diazepam and alprazolam, muscle relaxants or sleep aids. Never sell or share prescriptionopioids. This is illegal. Store opioids in a secure place and out of reach of others (including children, family, friends and visitors). The last page(s) of this document has been signed and retained as a CHART COPY Signatures Patient Education Materials COVID-19 Prevent the Spread of COVID-19 If You Are Sick (08/24/2019)(CUSTOM) Hypertension, Established Medication Leaflets My discharge plan and instructions have been reviewed and explained to me and I,BALJIT HYATT, YUSEF understand my current condition and have read and understand these discharge instructions. I have received a written copy of the plan/instructions. If I have questions, I am aware that I should contactmy doctor. 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 Author Type: Physical Therapist Type: Progress Notes Filed: 08/30/2021 8:28 AM Note Text: Episode Visit Count: 7 Therapist That Will Oversee The Plan Of Care: Danilea Zendejas Start of Care Date: 07/27/21 Onset Date: 07/27/13 Plan of Care Certification Date: 07/27/21 Next Certification Due Date: 08/31/21 Patient Identified by Name and Date of : Yes REHABILITATION AND SPORTS THERAPY PHYSICAL THERAPY DISCONTINUANCE OF CARE PLAN OF CARE UPDATE: Assessment: Yusef Muir is discontinued from Physical Therapy services due to goal achievement and maximal benefit.. Patient was seen for 7 visits from Start of Care Date: 07/27/21 to 08/30/2021 and treatment included: Therapeutic exercise and Self-intermediate management. Goals for Episode of Care: created on 07/27/21 through 09/07/21 Goals updated on 08/30/2021. Independent in home exercises. -- MET Patient will decrease pain rating by 2 points to meet minimal clinical important difference for numeric pain rating scale. -- MET Restore pain-free lumbar ROM to moderate to minimal AROM grossly to allow for improved functional mobility to complete work tasks and ADLs. -- MET Stand / Walk 30 to 45 min without increased pain/symptoms. -- MET, able to remove a washing machine himself from the house without pain - pt. Report Sit 1-2 hours without pain/symptoms to allow for seated activities and rest without limitation due to increased low back pain. -- MET Maintain proper sitting posture throughout session -- MET Patient will be able to tolerate functional activities for 2-3 hours and work activities for 4-8 hours without increased symptoms. -- MET Patient will be able to correct postural deviations independently in order to improve postural alignment of trunk during transfers, ambulation, sitting, standing and functional activities. -- MET Knowledgeable regarding prophylaxis. -- MET Patient Goals: reduce and self manage LBP pain with ADLs and work Activities-- MET SUBJECTIVE: Patient Reason for Visit: Pt. reports family and work dilemma. He must leave by 8:30 AM. He arrives 10 min early and PT visit started at that time.. Pain: Pain Pain Level: 1 Pain Location: Low Back/Lumbar Spine - Left;Low Back/Lumbar Spine - Right Description: Aching Frequency: Intermittent Additional Pain Information : Location 2 Post Treatment Pain Post Treatment Pain Location: Low Back/Lumbar Spine - Left;Low Back/Lumbar Spine - Right Post Treatment Pain Description: Aching PROMIS Scales T-scores: mean of general population = 50. 5 points is clinically meaningfully difference Percentiles provide an indication of how the patient's score ranks in relation to the general population. Higher percentile rankings indicate better function/quality of life. 50th percentile is the average of the general population and indicates half of respondents had a worse score. T-scores: mean of general population = 50. 5 points is clinically meaningfully difference Percentiles provide an indication of how the patient's score ranks in relation to the general population. Higher percentile rankings indicate better function/quality of life. 50th percentile is the average of the general population and indicates half of respondents had a worse score. OBJECTIVE MEASURES WITH LEVEL OF FUNCTION: Lumbar Spine AROM Lumbar Flexion: Normal Lumbar Extension: Normal Lumbar R Side-Bend: Normal Lumbar L Side-Bend: Normal Lumbar R Rotation: Normal Lumbar L Rotation: Normal TREATMENT: Therapeutic Exercise: 1: hook lying TA activation 3x10 (good technique, does not hold breath) 2: Supine TA with bent knee fall outs 3x12 (verbal cues to perform slowly for greater challenge) 3: Supine TA with marching 3x12 each 4: paloff press BTB 2x12 each side 6: multifidus lateral stepping 5x steps each side 5x hoist x1 plate 7: reverse stepping walk outs 5x5 steps 8: seated TA push down on 55 cm physio ball isometric 3x15, 2 sec hold 9: intermittent seated and standing rest due to COPD symptoms Skilled Intervention: Patient was educated in proper exercise technique and purpose for exercises. Reviewed and educated patient on additions/changes for home exercise program as above (*). Skilled judgment was provided in selection of appropriate interventions. Correct performance of therapeutic exercises was facilitated with verbal cuing. Additional time necessary for assessing progress toward goals and intermittent rest due to SOB COPD and discharge today. Educated patient on rationale for performing exercises in regards to decreasing fatigue , increase ease of ADL and ROM and function . Patient education as noted. Billing Therapeutic Exercise Treatment Minutes: 40 Total Treatment Time Minutes (timed/untimed): 40 Daniela Zendejas [facility]05-26-2022 History of Present illness Narrative* Daniela Zendejas, PT - 08/30/2021 7:49 AM EDT Episode Visit Count: 7 Therapist That Will Oversee The Plan Of Care: Daniela Zendejas Start of Care Date: 07/27/21 Onset Date: 07/27/13 Plan of Care Certification Date: 07/27/21 Next Certification Due Date: 08/31/21 Patient Identified by Name and Date of : Yes REHABILITATION AND SPORTS THERAPY PHYSICAL THERAPY DISCONTINUANCE OF CARE PLAN OF CARE UPDATE: Assessment: Yusef Muir is discontinued from Physical Therapy services due to goal achievement and maximal benefit.. Patient was seen for 7 visits from Start of Care Date: 07/27/21 to 08/30/2021 and treatment included: Therapeutic exercise and Self-intermediate management. Goals for Episode of Care: created on 07/27/21 through 09/07/21 Goals updated on 08/30/2021. Independent in home exercises. -- MET Patient will decrease pain rating by 2 points to meet minimal clinical important difference for numeric pain rating scale. -- MET Restore pain-free lumbar ROM to moderate to minimal AROM grossly to allow for improved functional mobility to complete work tasks and ADLs. -- MET Stand / Walk 30 to 45 min without increased pain/symptoms. -- MET, able to remove a washing machine himself from the house without pain - pt. Report Sit 1-2 hours without pain/symptoms to allow for seated activities and rest without limitation due to increased low back pain. -- MET Maintain proper sitting posture throughout session -- MET Patient will be able to tolerate functional activities for 2-3 hours and work activities for 4-8 hours without increased symptoms. -- MET Patient will be able to correct postural deviations independently in order to improve postural alignment of trunk during transfers, ambulation, sitting, standing and functional activities. -- MET Knowledgeable regarding prophylaxis. -- MET Patient Goals: reduce and self manage LBP pain with ADLs and work Activities-- MET SUBJECTIVE: Patient Reason for Visit: Pt. reports family and work dilemma. He must leave by 8:30 AM. He arrives 10 min early and PT visit started at that time.. Pain: Pain Pain Level: 1 Pain Location: Low Back/Lumbar Spine - Left;Low Back/Lumbar Spine - Right Description: Aching Frequency: Intermittent Additional Pain Information : Location 2 Post Treatment Pain Post Treatment Pain Location: Low Back/Lumbar Spine - Left;Low Back/Lumbar Spine - Right Post Treatment Pain Description: Aching PROMIS Scales T-scores: mean of general population = 50. 5 points is clinically meaningfully difference Percentiles provide an indication of how the patient's score ranks in relation to the general population. Higher percentile rankings indicate better function/quality of life. 50th percentile is the average of the general population and indicates half of respondents had a worse score. T-scores: mean of general population = 50. 5 points is clinically meaningfully difference Percentiles provide an indication of how the patient's score ranks in relation to the general population. Higher percentile rankings indicate better function/quality of life. 50th percentile is the average of the general population and indicates half of respondents had a worse score. OBJECTIVE MEASURES WITH LEVEL OF FUNCTION: Lumbar Spine AROM Lumbar Flexion: Normal Lumbar Extension: Normal Lumbar R Side-Bend: Normal Lumbar L Side-Bend: Normal Lumbar R Rotation: Normal Lumbar L Rotation: Normal TREATMENT: Therapeutic Exercise: 1: hook lying TA activation 3x10 (good technique, does not hold breath) 2: Supine TA with bent knee fall outs 3x12 (verbal cues to perform slowly for greater challenge) 3: Supine TA with marching 3x12 each 4: paloff press BTB 2x12 each side 6: multifidus lateral stepping 5x steps each side 5x hoist x1 plate 7: reverse stepping walk outs 5x5 steps 8: seated TA push down on 55 cm physio ball isometric 3x15, 2 sec hold 9: intermittent seated and standing rest due to COPD symptoms Skilled Intervention: Patient was educated in proper exercise technique and purpose for exercises. Reviewed and educated patient on additions/changes for home exercise program as above (*). Skilled judgment was provided in selection of appropriate interventions. Correct performance of therapeutic exercises was facilitated with verbal cuing. Additional time necessary for assessing progress toward goals and intermittent rest due to SOB COPDand discharge today. Educated patient on rationale for performing exercises in regards to decreasing fatigue , increase ease of ADL and ROM and function . Patient education as noted. Billing Therapeutic Exercise Treatment Minutes: 40 Total Treatment Time Minutes (timed/untimed): 40 Daniela Zendejas PT [facility] Miscellaneous Notes* Telephone Encounter - Parisa Valadez RN - 08/27/2021 10:13 PM EDT Severe Pain in wound. He says he can't go back to the ER because he has no one to watch his daughter. I conf him to his PCP's answering service [phone] Reason for Disposition SEVERE pain in the wound Answer Assessment - Initial Assessment Questions 1. LOCATION: His whole back of his neck is throbbing. Earlier it was just the left 2. WOUND APPEARANCE: He says he can't see it and does not have a mirror and he is alone except for his 10 yr old daughter who is sleeping 3. SIZE: 50 cent piece and it is still draining a light red 4. SPREAD: All he knows is the pain has spread 5. ONSET: Week ago and this am he went to [place] [facility] 6. MECHANISM: He believes it started as a spider bite then it started looking like a pimple 7. PAIN: Severe pain and the only way it doesn't hurt is if he puts his chin to his chest. He does not want to take anything for pain 8. FEVER: No thermometer but feels a little warm 9. OTHER SYMPTOMS: Feels lightheaded He went to [facility] this am . They did an I&D and gave him ATB. Cephalexin 500 mg every 6 hrs. He took one dose at 4:30 pm and he doesn't want to take another dose because he believes it is thecause of his lightheaded. He is a diabetic Protocols used: WOUND [id number] documented in this [facility] NoteHNO ID: [id number] Author: Daniela Zendejas, PT Service: ? Author Type: Physical Therapist Type: Progress Notes Filed: 08/27/2021 8:44 AM Note Text: Episode Visit Count: 6 Therapist That Will Oversee The Plan Of Care: Daniela Zendejas Start of Care Date: 07/27/21 Onset Date: 07/27/13 Plan of Care Certification Date: 07/27/21 Next Certification Due Date: 08/31/21 Patient Identified by Name and Date of : Yes REHABILITATION AND SPORTS THERAPY PHYSICAL THERAPY TREATMENT NOTE ASSESSMENT: Yusef Muir tolerated the session with expected muscle soreness. He demonstrated improvements in overall pain reduction and tolerance for exercises.. The patient will continue to benefit from ongoing skilled physical therapy to progress toward set goals. PLAN FOR NEXT VISIT: Progress core stabilization SUBJECTIVE: Patient Reason for Visit: Patient reports his back has been feeling better. He reports having a spider bite and plans to go to emergency room to get it drained. He reports his neck hurts with movement. Pain: Pain Pain Level: 3 Pain Location: Low Back/Lumbar Spine - Left;Low Back/Lumbar Spine - Right Description: Aching Frequency: Intermittent Additional Pain Information : Location 2 Pain Level 2: 9 Pain Location 2: (neck central and left side) Description 2: Sharp Frequency 2: Continuous Post Treatment Pain Post Treatment Pain Level: 4 Post Treatment Pain Location: Low Back/Lumbar Spine - Left;Low Back/Lumbar Spine - Right Post Treatment Pain Description: Aching Post Treatment Symptoms: feels a little more sore in low back OBJECTIVE MEASURES WITH LEVEL OF FUNCTION: Fatigue with exercises with good form obeserved. TREATMENT: Therapeutic Exercise: 1: hook lying TA activation x10 (good form with this) 2: Supine TA with bent knee fall outs 2x12 (Education to count out loud for proper breathing) 3: Supine TA with marching 2x12 each (Education to count out loud for proper breathing) 4: paloff press BTB 2x12 each side 5: stir the pot 30 sec CW and 30 sec CCW 2x L and R to hoist 1 plate + 1 small round 6: multifidus lateral stepping 5x steps each side 5x hoist x1 plate 7: Seated perturbations blue band forward, lateral right and left 3x15 8: seated TA push down on ball isometric 10x10 sec hold Skilled Intervention: Patient was educated in proper exercise technique and purpose for exercises. Skilled judgment was provided in selection of appropriate interventions. Correct performance of therapeutic exercises was facilitated with verbal and visual cuing. Billing Therapeutic Exercise Treatment Minutes: 39 Total Treatment Time Minutes (timed/untimed): 39 ANGELA Regalado, [facility]05-23-2022 History of Present illness Narrative* Daniela Zendejas, PT - 08/27/2021 8:27 AM EDT Episode Visit Count: 6 Therapist That Will Oversee The Plan Of Care: Daniela Zendejas Start of Care Date: 07/27/21 Onset Date: 07/27/13 Plan of Care Certification Date: 07/27/21 Next Certification Due Date: 08/31/21 Patient Identified by Name and Date of : Yes REHABILITATION AND SPORTS THERAPY PHYSICAL THERAPY TREATMENT NOTE ASSESSMENT: Yusef Muir tolerated the session with expected muscle soreness. He demonstrated improvements in overall pain reduction and tolerance for exercises.. The patient will continue to benefit from ongoing skilled physical therapy to progress toward set goals. PLAN FOR NEXT VISIT: Progress core stabilization SUBJECTIVE: Patient Reason for Visit: Patient reports his back has been feeling better. He reports having a spider bite and plans to go to emergency room to get it drained. He reports his neck hurts with movement. Pain: Pain Pain Level: 3 Pain Location: Low Back/Lumbar Spine - Left;Low Back/Lumbar Spine - Right Description: Aching Frequency: Intermittent Additional Pain Information : Location 2 Pain Level 2: 9 Pain Location 2: (neck central and left side) Description 2: Sharp Frequency 2: Continuous Post Treatment Pain Post Treatment Pain Level: 4 Post Treatment Pain Location: Low Back/Lumbar Spine - Left;Low Back/Lumbar Spine - Right Post Treatment Pain Description: Aching Post Treatment Symptoms: feels a little more sore in low back OBJECTIVE MEASURES WITH LEVEL OF FUNCTION: Fatigue with exercises with good form obeserved. TREATMENT: Therapeutic Exercise: 1: hook lying TA activation x10 (good form with this) 2: Supine TA with bent knee fall outs 2x12 (Education to count out loud for proper breathing) 3: Supine TA with marching 2x12 each (Education to count out loud for proper breathing) 4: paloff press BTB 2x12 each side 5: stir the pot 30 sec CW and 30 sec CCW 2x L and R to hoist 1 plate + 1 small round 6: multifidus lateral stepping 5x steps each side 5x hoist x1 plate 7: Seated perturbations blue band forward, lateral right and left 3x15 8: seated TA push down on ball isometric 10x10 sec hold Skilled Intervention: Patient was educated in proper exercise technique and purpose for exercises. Skilled judgment was provided in selection of appropriate interventions. Correct performance of therapeutic exercises was facilitated with verbal and visual cuing. Billing Therapeutic Exercise Treatment Minutes: 39 Total Treatment Time Minutes (timed/untimed): 39 ANGELA Regalado PT documented [facility] this [facility]22 Miscellaneous Notes* Telephone Encounter - Astrid Silvestre - 08/24/2021 2:51 PM EDT Called patient again asking for more information and he happened to be with renzomary. Fax number: [phone] She is asking [facility] note be send as well as supporting documents. Information faxed and confirmation received. Astrid Silvestre * Telephone Encounter - Astrid Silvestre - 08/24/2021 2:00 PM EDT Called patient. He is needed us to send a doctors note to [facility] at [facility] on [address] He did not know of a fax number, will try to find one. Astrid Silvestre * Telephone Encounter - Kathryn Xavier RN - 08/24/2021 1:46 PM EDT Pt calling regardng work paperwork Please call when able documented in this encounterM[facility]22 NoteHNO ID: [id number] Author: Daniela Zendejas PT Service: ? Author Type: Physical Therapist Type: Progress Notes Filed: 08/23/2021 8:33 AM Note Text: Episode Visit Count: 5 Therapist That Will Oversee The Plan Of Care: Daniela Zendejas Start of Care Date: 07/27/21 Onset Date: 07/27/13 Plan of Care Certification Date: 07/27/21 Next Certification Due Date: 08/31/21 REHABILITATION AND SPORTS THERAPY PHYSICAL THERAPY TREATMENT NOTE ASSESSMENT: Yusef Muir tolerated the session with decreased pain. He demonstrated improvements in Technique with exercises with less cues this visit. The patient will continue to benefit from ongoing skilled physical therapy to progress toward set goals. PLAN FOR NEXT VISIT: SUBJECTIVE: Patient Reason for Visit: Visit began 9 min early. Pt. reports he has had the flu and that is why he has not been here x2 weeks. These flu symptoms have resolved. LBP is much improved today, reports it's been a 5/10. Reports the TA activation exercises have been the most helpful for his symptoms. Pt. confirms he is not doing flexion exercises. Pain: Pain Pain Level: 5 Pain Location: Low Back/Lumbar Spine - Left;Low Back/Lumbar Spine - Right Description: Aching Frequency: Continuous Post Treatment Pain Post Treatment Pain Level: No Change Post Treatment Pain Location: Low Back/Lumbar Spine - Left;Low Back/Lumbar Spine - Right Post Treatment Pain Description: Aching Post Treatment Symptoms: only reports some TA soreness OBJECTIVE MEASURES WITH LEVEL OF FUNCTION: TREATMENT: Therapeutic Exercise: 1: hook lying TA activation x10 2: seated TA push down on ball isometric 5x10 sec hold 3: TA pull down B BTB, dc after 12 due to complaints of L elbow pain 4: paloff press BTB 2x12 each side 5: stir the pot 30 sec CW and 30 sec CCW 2x L and R to hoist 1 plate + 1 small round 6: Supine TA 3 second hold 1x10 7: Supine TA with bent knee fall outs 2x10 8: Supine TA with marching 3x30 sec alternating 9: multifidus lateral stepping 5x steps each side 5x hoist x1 plate Skilled Intervention: Patient was educated in proper exercise technique and purpose for exercises. Reviewed and educated patient on additions/changes for home exercise program as above (*). Skilled judgment was provided in selection of appropriate interventions. Correct performance of therapeutic exercises was facilitated with verbal cuing. Educated patient on rationale for performing exercises in regards to decreasing fatigue , increase ease of ADL and ROM and function . Patient education as noted. Billing Therapeutic Exercise Treatment Minutes: 40 Total Treatment Time Minutes (timed/untimed): 40 Daniela Zendejas, [facility]05-19-2022 History of Present illness Narrative* Daniela Zendejas, PT - 08/23/2021 7:52 AM EDT Episode Visit Count: 5 Therapist That Will Oversee The Plan Of Care: Daniela Zendejas Start of Care Date: 07/27/21 Onset Date: 07/27/13 Plan of Care Certification Date: 07/27/21 Next Certification Due Date: 08/31/21 REHABILITATION AND SPORTS THERAPY PHYSICAL THERAPY TREATMENT NOTE ASSESSMENT: Yusef Muir tolerated the session with decreased pain. He demonstrated improvementsin Technique with exercises with less cues this visit. The patient will continue to benefit from ongoing skilled physical therapy to progress toward set goals. PLAN FOR NEXT VISIT: SUBJECTIVE: Patient Reason for Visit: Visit began 9 min early. Pt. reports he has had the flu and that is why he has not been here x2 weeks. These flu symptoms have resolved. LBP is much improved today, reports it's been a 5/10. Reports the TA activation exercises have been the most helpful for hissymptoms. Pt. confirms he is not doing flexion exercises. Pain: Pain Pain Level: 5 Pain Location: Low Back/Lumbar Spine - Left;Low Back/Lumbar Spine - Right Description: Aching Frequency: Continuous Post Treatment Pain Post Treatment Pain Level: No Change Post Treatment Pain Location: Low Back/Lumbar Spine - Left;Low Back/Lumbar Spine - Right Post Treatment Pain Description: Aching Post Treatment Symptoms: only reports some TA soreness OBJECTIVE MEASURES WITH LEVEL OF FUNCTION: TREATMENT: Therapeutic Exercise: 1: hook lying TA activation x10 2: seated TA push down on ball isometric 5x10 sec hold 3: TA pull down B BTB, dc after 12 due to complaints of L elbow pain 4: paloff press BTB 2x12 each side 5: stir the pot 30 sec CW and 30 sec CCW 2x L and R to hoist 1 plate + 1 small round 6: Supine TA 3 second hold 1x10 7: Supine TA with bent knee fall outs 2x10 8: Supine TA with marching 3x30 sec alternating 9: multifidus lateral stepping 5x steps each side 5x hoist x1 plate Skilled Intervention: Patient was educated in proper exercise technique and purpose for exercises. Reviewed and educated patient on additions/changes for home exercise program as above (*). Skilled judgment was provided in selection of appropriate interventions. Correct performance of therapeutic exercises was facilitated with verbal cuing. Educated patient on rationale for performing exercises in regards to decreasing fatigue , increase ease of ADL and ROM and function . Patient education as noted. Billing Therapeutic Exercise Treatment Minutes: 40 Total Treatment Time Minutes (timed/untimed): 40 Daniela Zendejas PT [facility] NoteHNO ID: [id number] Author: Janessa Moreno, DO Service: ? Author Type: Physician Type: Progress Notes Filed: 08/28/2021 2:05 PM Note Text: Follow Up Visit Chief Complaint Yusef Muir is a 56 year old male who presents today for follow up office visit. Patient presents with: Left Elbow - Follow Up, Pain History of Present Illness PAIN EVALUATION 08/22/2021 1419 Pain Level: 0 Pain Location: Arm-Forearm Left Description: Sore Duration Amount of Time: ? ongoing Frequency: Intermittent Intervention/Comfort measure: Reposition;Relaxation HPI: Yusef Muir is a 56 year old male for a follow up visit left elbow pain. Patient is here to go over CT results. Pain history is noted as above. Denies calf pain, numbness, tingling, fever, chills or other constitutional symptoms. Is there any overall improvement in your condition? No Any new injury, since being seen last: No REVIEW OF SYMPTOMS: Patient did not have, and does not currently have, any weight loss, malaise, fever, chills, headache, chest pain, chest pressure, palpitations, cough, shortness of breath, orthopnea, paroxsymal nocturnal dyspnea, nausea, vomiting, diarrhea, constipation, melena, hematochezia, urinary difficulties, prolonged bleeding, easily bruising, heat or cold intolerance, new onset joint pain or swelling, new onset extremity weakness or numbness, new onset auditory or visual disturbances, lightheadedness, dizziness, partial loss of consciousness or full loss of consciousness. Current Outpatient Medications Medication Sig - furosemide (LASIX) 20 mg tablet Take 20 mg by mouth once daily. - lisinopril (ZESTRIL, PRINIVIL) 20 mg tablet Take 20 mg by mouth once daily. - cephALEXin (KEFLEX) 500 mg capsule Take 500 mg by mouth four times daily. - meloxicam (MOBIC) 15 mg tablet Take 1 tablet by mouth once daily. - lidocaine (LIDODERM) 5 % Apply 1 Patch as directed every 12 hours. Remove old patch prior to placing new patch. Location: right thigh - diclofenac (VOLTAREN) 1 % topical gel Apply 2 g to affected area four times daily. - gabapentin (NEURONTIN) 600 mg tablet Take 600 mg by mouth as needed. - rOPINIRole (REQUIP) 1 mg tablet Take 1 mg by mouth daily at bedtime. - cyclobenzaprine (FLEXERIL) 10 mg tablet Take 1 tablet by mouth every 8 hours as needed. - DULoxetine (CYMBALTA) 30 mg capsule Take 30 mg by mouth once daily. - metFORMIN (GLUCOPHAGE) 500 mg tablet Take 2 tablets by mouth twice daily with meals. - FLAXSEED OIL (OMEGA 3 ORAL) Take 1,000 mg by mouth twice daily. - losartan (COZAAR) 100 mg tablet Take 100 mg by mouth once daily. - albuterol HFA (VENTOLIN HFA) 90 mcg/actuation inhaler Inhale 2 Puffs as instructed as needed. - amLODIPine 5 mg tablet Take 5 mg by mouth once daily. - omeprazole 20 mg capsule Take 20 mg by mouth once daily. - glimepiride (AMARYL) 2 mg tablet Take 2 mg by mouth daily with breakfast. - FREESTYLE LITE STRIPS test strip - FREESTYLE FREEDOM LITE monitoring kit - FREESTYLE LANCETS lancets - SIMVASTATIN 10 mg tablet Take 10 mg by mouth daily at bedtime. No current facility-administered medications for this visit. Physical Exam Vitals: There were no vitals taken for this visit. Psych: Pleasant, good affect and mood General Appearance: Well appearing, alert, in no acute distress, well-hydrated, well nourished.. Skin: Skin color, texture, turgor normal, no suspicious rashes or lesions. Peripheral Pulses: Normal. Neurologic: Gait normal. Reflexes normal and symmetric. Sensation grossly intact.. Lymph Nodes: No cervical lymphadenopathy, No supraclavicular lymphadenopathy, No axillary lymphadenopathy. and No inguinal lymphadenopathy.. Respiratory: No recent pulmonary infection, hemoptysis, chronic cough, or shortness of breath at rest Rheumatologic: Joint deformities: Left elbow pain Left Elbow Exam Comments: Fixed sup/pronxn ; from flex/ex of elbow and wrist Med,uln, rad nerves intact Assessment and Plan Radiographs: I have independently reviewed films and my findings are the same. IMPRESSION: FINDINGS RELATED TO PRIOR DISTAL BICEPS TENDON TEAR AND SURGERY WITH ASSOCIATED OSSIFICATIONS IN THE REGION OF THE DISTAL BICEPS TENDON. DISTAL MOST ASPECT OF THE TENDON IS NOT WELL SEEN. THE SLIGHTLY MORE PROXIMAL ASPECT OF THE TENDON APPEARS TO BE INTACT. 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 OSTEOARTHROSIS OF THE ELBOW JOINT. FRACTURED ENTHESOPHYTE OF UNCERTAIN AGE AT THE TRICEPS INSERTION SITE OF THE ULNA. ENTHESOPHYTES AT THE COMMON FLEXOR AND EXTENSOR TENDON INSERTION SITES ON THE HUMERUS. CALCIFIC TENDINOSIS INVOLVING THE COMMON EXTENSOR TENDONS. NO ACUTE FRACTURE OR DISLOCATION. Switchbox Assembler: MESSI ? Transcribe Date/Time: Jul 30 2021 ?9:35A Impression: Encounter Diagnosis ICD-10-CM 1. 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 Follow Up Visit Chief Complaint Yusef Muir is a 56 year old male who presents today for follow up office visit. Patient presents with: Left Elbow - Follow Up, Pain History of Present Illness PAIN EVALUATION 08/22/2021 1419 Pain Level: 0 Pain Location: Arm-Forearm Left Description: Sore Duration Amount of Time: ongoing Frequency: Intermittent Intervention/Comfort measure: Reposition;Relaxation HPI: Yusef Muir is a 56 year old male for a follow up visit left elbow pain. Patient is here to go over CT results. Pain history is noted as above. Denies calf pain, numbness, tingling, fever, chills or other constitutional symptoms. Is there any overall improvement in your condition? No Any new injury, since being seen last: No REVIEW OF SYMPTOMS: Patient did not have, and does not currently have, any weight loss, malaise, fever, chills, headache, chest pain, chest pressure, palpitations, cough, shortness of breath, orthopnea, paroxsymal nocturnal dyspnea, nausea, vomiting, diarrhea, constipation, melena, hematochezia, urinary difficulties, prolonged bleeding, easily bruising, heat or cold intolerance, new onset joint pain or swelling, newonset extremity weakness or numbness, new onset auditory or visual disturbances, lightheadedness, dizziness, partial loss of consciousness or full loss of consciousness. Current Outpatient Medications Medication Sig furosemide (LASIX) 20 mg tablet Take 20 mg by mouth once daily. lisinopril (ZESTRIL, PRINIVIL) 20 mg tablet Take 20 mg by mouth once daily. cephALEXin (KEFLEX) 500 mg capsule Take 500 mg by mouth four times daily. meloxicam (MOBIC) 15 mg tablet Take 1 tablet by mouth once daily. lidocaine (LIDODERM) 5 % Apply 1 Patch as directed every 12 hours. Remove old patch prior to placing new patch. Location: right thigh diclofenac (VOLTAREN) 1 % topical gel Apply 2 g to affected area four times daily. gabapentin (NEURONTIN) 600 mg tablet Take 600 mg by mouth as needed. rOPINIRole (REQUIP) 1 mg tablet Take 1 mg by mouth daily at bedtime. cyclobenzaprine (FLEXERIL) 10 mg tablet Take 1 tablet by mouth every 8 hours as needed. DULoxetine (CYMBALTA) 30 mg capsule Take 30 mg by mouth once daily. metFORMIN (GLUCOPHAGE) 500 mg tablet Take 2 tablets by mouth twice daily with meals. FLAXSEED OIL (OMEGA 3 ORAL) Take 1,000 mg by mouth twice daily. losartan (COZAAR) 100 mg tablet Take 100 mg by mouth once daily. albuterol HFA (VENTOLIN HFA) 90 mcg/actuation inhaler Inhale 2 Puffs as instructed as needed. amLODIPine 5 mg tablet Take 5 mg by mouth once daily. omeprazole 20 mg capsule Take 20 mg by mouth once daily. glimepiride (AMARYL) 2 mg tablet Take 2 mg by mouth daily with breakfast. FREESTYLE LITE STRIPS test strip FREESTYLE FREEDOM LITE monitoring kit FREESTYLE LANCETS lancets SIMVASTATIN 10 mg tablet Take 10 mg by mouth daily at bedtime. No current facility-administered medications for this visit. Physical Exam Vitals: There were no vitals taken for this visit. Psych: Pleasant, good affect and mood General Appearance: Well appearing, alert, in no acute distress, well-hydrated, well nourished.. Skin: Skin color, texture, turgor normal, no suspicious rashes or lesions. Peripheral Pulses: Normal. Neurologic: Gait normal. Reflexes normal and symmetric. Sensation grossly intact.. Lymph Nodes: No cervical lymphadenopathy, No supraclavicular lymphadenopathy, No axillary lymphadenopathy. and No inguinal lymphadenopathy.. Respiratory: No recent pulmonary infection, hemoptysis, chronic cough, or shortness of breath at rest Rheumatologic: Joint deformities: Left elbow pain Left Elbow Exam Comments: Fixed sup/pronxn ; from flex/ex of elbow and wrist Med,uln, rad nerves intact Assessment and Plan Radiographs: I have independently reviewed films and my findings are the same. IMPRESSION: FINDINGS RELATED TO PRIOR DISTAL BICEPS TENDON TEAR AND SURGERY WITH ASSOCIATED OSSIFICATIONS IN THE REGION OF THE DISTAL BICEPS TENDON. DISTAL MOST ASPECT OF THE TENDON IS NOT WELL SEEN. THE SLIGHTLY MORE PROXIMAL ASPECT OF THE TENDON APPEARS TO BE INTACT. 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 OSTEOARTHROSIS OF THE ELBOW JOINT. FRACTURED ENTHESOPHYTE OF UNCERTAIN AGE AT THE TRICEPS INSERTION SITE OF THE ULNA. ENTHESOPHYTES AT THE COMMON FLEXOR AND EXTENSOR TENDON INSERTION SITES ON THE HUMERUS. CALCIFIC TENDINOSIS INVOLVING THE COMMON EXTENSOR TENDONS. NO ACUTE FRACTURE OR DISLOCATION. Switchbox Assembler: MESSI Transcribe Date/Time: Jul 30 2021 9:35A Impression: Encounter Diagnosis ICD-10-CM 1. 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 All questions answered. Today, in detail, through a thorough evaluation, we discussed possible etiologies of pain and our plans for further diagnostic and therapeutic interventions. We discussed strategies for decreasing pain and improving strength, stability and motion. Patient's questions were answered in detailed. Patient verbalizes understanding and agrees with the treatment plan as discussed. [facility] NoteHNO ID: [id number] Author: Daniela Zendejas, PT Service: ? Author Type: Physical Therapist Type: Progress Notes Filed: 08/14/2021 2:10 PM Note Text: Episode Visit Count: 4 Therapist That Will Oversee The Plan Of Care: Daniela Zendejas Start of Care Date: 07/27/21 Onset Date: 07/27/13 Plan of Care Certification Date: 07/27/21 Next Certification Due Date: 08/31/21 Patient Identified by Name and Date of : Yes REHABILITATION AND SPORTS THERAPY PHYSICAL THERAPY TREATMENT NOTE ASSESSMENT: Yusef J Moretto tolerated the session with decreased pain. He demonstrated improvements in pain reduction in back and right scapular pain abolished at end of treatment. Patient responded well to extension based exercises and core stabilization today.. The patient will continue to benefit from ongoing skilled physical therapy to progress toward set goals. PLAN FOR NEXT VISIT: Progress core strength and extension direction of preference SUBJECTIVE: Patient Reason for Visit: Patient reports he felt good until yesterday. 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 and felt a pop and buring sensation in his back .He reports left shoulder blade is hurting and pain across B low back Pain: Pain Pain Level: 5 Pain Location: Low Back/Lumbar Spine - Right;Low Back/Lumbar Spine - Left Description: Throbbing Frequency: Continuous Additional Pain Information : Location 2 Pain Level 2: 8 Pain Location 2: Scapula - Right Description 2: Aching Frequency 2: Continuous Post Treatment Pain Post Treatment Pain Level: 3 Post Treatment Pain Location: Low Back/Lumbar Spine - Right;Low Back/Lumbar Spine - Left Post Treatment Pain Description: Throbbing Post Treatment Symptoms: No pain right shoulder blade. OBJECTIVE MEASURES WITH LEVEL OF FUNCTION: Right scapular pain abolished with active stretching. TREATMENT: Therapeutic Exercise: 1: Seated thoracic extension 1x10 2: Seated thoracic rotations 1x10 3: Prone lying x 2 minutes. 4: Prone prop x 3 minutes 5: prone press ups 3x5 (improved lumbar extension today) 6: *Supine TA 3 second hold 1x10 7: *Supine TA with bent knee fall outs 2x5 8: *Supine TA with marching 2x5 9: *Seated TA 3 second hold 2x10 10: Seated perturbations blue band forward, lateral right and left 3x10 11: Education to stop flexion exercises. Skilled Intervention: Patient was educated in proper exercise technique and purpose for exercises. Skilled judgment was provided in selection of appropriate interventions. Correct performance of therapeutic exercises was facilitated with verbal and visual cuing. Billing Therapeutic Exercise Treatment Minutes: 40 Total Treatment Time Minutes (timed/untimed): 40 ANGELA Regalado, [facility]05-10-2022 History of Present illness Narrative* Daniela Zendejas, PT - 08/14/2021 11:54 AM EDT Episode Visit Count: 4 Therapist That Will Oversee The Plan Of Care: Daniela Zendejas Start of Care Date: 07/27/21 Onset Date: 07/27/13 Plan of Care Certification Date: 07/27/21 Next Certification Due Date: 08/31/21 Patient Identified by Name and Date of : Yes REHABILITATION AND SPORTS THERAPY PHYSICAL THERAPY TREATMENT NOTE ASSESSMENT: Yusef Muir tolerated the session with decreased pain. He demonstrated improvementsin pain reduction in back and right scapular pain abolished at end of treatment. Patient responded well to extension based exercises and core stabilization today.. The patient will continue to benefit from ongoing skilled physical therapy to progress toward set goals. PLAN FOR NEXT VISIT: Progress core strength and extension direction of preference SUBJECTIVE: Patient Reason for Visit: Patient reports he felt good until yesterday. 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 and felt a pop and buring sensation in his back .He reports left shoulder blade is hurting and pain across B low back Pain: Pain Pain Level: 5 Pain Location: Low Back/Lumbar Spine - Right;Low Back/Lumbar Spine - Left Description: Throbbing Frequency: Continuous Additional Pain Information : Location 2 Pain Level 2: 8 Pain Location 2: Scapula - Right Description 2: Aching Frequency 2: Continuous Post Treatment Pain Post Treatment Pain Level: 3 Post Treatment Pain Location: Low Back/Lumbar Spine - Right;Low Back/Lumbar Spine - Left Post Treatment Pain Description: Throbbing Post Treatment Symptoms: No pain right shoulder blade. OBJECTIVE MEASURES WITH LEVEL OF FUNCTION: Right scapular pain abolished with active stretching. TREATMENT: Therapeutic Exercise: 1: Seated thoracic extension 1x10 2: Seated thoracic rotations 1x10 3: Prone lying x 2 minutes. 4: Prone prop x 3 minutes 5: prone press ups 3x5 (improved lumbar extension today) 6: *Supine TA 3 second hold 1x10 7: *Supine TA with bent knee fall outs 2x5 8: *Supine TA with marching 2x5 9: *Seated TA 3 second hold 2x10 10: Seated perturbations blue band forward, lateral right and left 3x10 11: Education to stop flexion exercises. Skilled Intervention: Patient was educated in proper exercise technique and purpose for exercises. Skilled judgment was provided in selection of appropriate interventions. Correct performance of therapeutic exercises was facilitated with verbal and visual cuing. Billing Therapeutic Exercise Treatment Minutes: 40 Total Treatment Time Minutes (timed/untimed): 40 HumbertoANGELA Hughes PT documented [facility] NoteHNO ID: [id number] Author: Daniela Zendejas PT Service: ? Author Type: Physical Therapist Type: Progress Notes Filed: 08/08/2021 12:19 PM Note Text: Episode Visit Count: 3 Therapist That Will Oversee The Plan Of Care: Daniela Zendejas Start of Care Date: 07/27/21 Onset Date: 07/27/13 Plan of Care Certification Date: 07/27/21 Next Certification Due Date: 08/31/21 Patient Identified by Name and Date of : Yes REHABILITATION AND SPORTS THERAPY PHYSICAL THERAPY TREATMENT NOTE ASSESSMENT: Yusef Muir tolerated the session with decreased activity tolerance due to limited lumbar spine mobility with every static position stretch or AROM exercise, decreased endurance, fatigue and increased pain. He demonstrated improvements in lumbar extension mobility following prone lying and press ups and symptoms seem to centralize from the L glute to the ~L4-L5 region of the B low back. Pt. demosntrated increased AAROM lumbar spine each set of prone press ups,but very limited tolerance to volume of reps. The patient will continue to benefit from ongoing skilled physical therapy to progress toward set goals. PLAN FOR NEXT VISIT: Continue to assess symptom response to directional preference. Pt. reports improvement today extension based exercises. Progress core stabilization strengthening to standing anti-rotational resistance exercises. SUBJECTIVE: Patient Reason for Visit: Pt. reports maybe a little better. Pain: Pain Pain Level: 5 Pain Location: Buttocks - Left Description: Sharp Frequency: Continuous Post Treatment Pain Post Treatment Pain Level: 5 Post Treatment Pain Location: Low Back/Lumbar Spine - Right;Low Back/Lumbar Spine - Left Post Treatment Symptoms: centralized to low back. sit to stand is much easier with correction cues today OBJECTIVE MEASURES WITH LEVEL OF FUNCTION: Repeated Test Movements - Lumbar REIL - Symptoms During: centralizing (from glute to across my lower back pt. points to ~L4-L5 area) REIL - Symptoms After: centralized (increased from 5/10 to 6/10, centralized L glute to L4-L5 B) TREATMENT: Therapeutic Exercise: 1: Prone lying x 2 minutes. 2: Prone prop on elbows x 5 minutes (pain centralized to midline L4) 3: prone press ups 3x5 (minimal AAROM lumbar extension observed) 4: hooklying rotation not completed due to pt. reporting knee pain 5: dc supine KTC due to pt. reporting worse symptoms 6: seated HS stretch 3x30 sec each LE 7: sit <> stand 3x5, UE for trunk extension support not pushing through UEs (cues to use UEs to support trunk extension prior to transfer using the UEs on surface, push more through the legs - pt. reported reduced LBP with this correction) 8: Seated TA 3 second hold x 10 (requires cue to not hold his breath) Skilled Intervention: Patient was educated in proper exercise technique and purpose for exercises. Reviewed and educated patient on additions/changes for home exercise program as above (*). Skilled judgment was provided in selection of appropriate interventions. Provided written instruction for home exercise program to facilitate proper performance and compliance. Correct performance of therapeutic exercises was facilitated with verbal and visual cuing. Additional time necessary for assessing symptom response to exercises due to inconsistent symptom response to flexion vs. Extension directional preference based exercises. Educated patient on rationale for performing exercises in regards to decreasing fatigue , increase ease of ADL and ROM and function . Patient education as noted. Billing Therapeutic Exercise Treatment Minutes: 40 Total Treatment Time Minutes (timed/untimed): 40 Daniela Zendejas, [facility]05-04-2022 History of Present illness Narrative* Daniela Zendejas, PT - 08/08/2021 10:03 AM EDT Episode Visit Count: 3 Therapist That Will Oversee The Plan Of Care: Daniela Zendejas Start of Care Date: 07/27/21 Onset Date: 07/27/13 Plan of Care Certification Date: 07/27/21 Next Certification Due Date: 08/31/21 Patient Identified by Name and Date of : Yes REHABILITATION AND SPORTS THERAPY PHYSICAL THERAPY TREATMENT NOTE ASSESSMENT: Yusef Muir tolerated the session with decreased activity tolerance due to limited lumbar spine mobility with every static position stretch or AROM exercise, decreased endurance, fatigue and increased pain. He demonstrated improvements in lumbar extension mobility following prone lying and press ups and symptoms seem to centralize from the L glute to the ~L4-L5 region of the B lowback. Pt. demosntrated increased AAROM lumbar spine each set of prone press ups,but very limited tolerance to volume of reps. The patient will continue to benefit from ongoing skilled physical therapy to progress toward set goals. PLAN FOR NEXT VISIT: Continue to assess symptom response to directional preference. Pt. reports improvement today extension based exercises. Progress core stabilization strengthening to standing anti-rotational resistance exercises. SUBJECTIVE: Patient Reason for Visit: Pt. reports maybe a little better. Pain: Pain Pain Level: 5 Pain Location: Buttocks - Left Description: Sharp Frequency: Continuous Post Treatment Pain Post Treatment Pain Level: 5 Post Treatment Pain Location: Low Back/Lumbar Spine - Right;Low Back/Lumbar Spine - Left Post Treatment Symptoms: centralized to low back. sit to stand is much easier with correction cues today OBJECTIVE MEASURES WITH LEVEL OF FUNCTION: Repeated Test Movements - Lumbar REIL - Symptoms During: centralizing (from glute to across my lower back pt. points to ~L4-L5 area) REIL - Symptoms After: centralized (increased from 5/10 to 6/10, centralized L glute to L4-L5 B) TREATMENT: Therapeutic Exercise: 1: Prone lying x 2 minutes. 2: Prone prop on elbows x 5 minutes (pain centralized to midline L4) 3: prone press ups 3x5 (minimal AAROM lumbar extension observed) 4: hooklying rotation not completed due to pt. reporting knee pain 5: dc supine KTC due to pt. reporting worse symptoms 6: seated HS stretch 3x30 sec each LE 7: sit <> stand 3x5, UE for trunk extension support not pushing through UEs (cues to use UEs to support trunk extension prior to transfer using the UEs on surface, push more through the legs - pt. reported reduced LBP with this correction) 8: Seated TA 3 second hold x 10 (requires cue to not hold his breath) Skilled Intervention: Patient was educated in proper exercise technique and purpose for exercises. Reviewed and educated patient on additions/changes for home exercise program as above (*). Skilled judgment was provided in selection of appropriate interventions. Provided written instruction for home exercise program to facilitate proper performance and compliance. Correct performance of therapeutic exercises was facilitated with verbal and visual cuing. Additional time necessary for assessing symptom response to exercises due to inconsistent symptom response to flexion vs. Extension directional preference based exercises. Educated patient on rationale for performing exercises in regards to decreasing fatigue , increase ease of ADL and ROM and function . Patient education as noted. Billing Therapeutic Exercise Treatment Minutes: 40 Total Treatment Time Minutes (timed/untimed): 40 Daniela Zendejas PT [facility] NoteHNO ID: [id number] Author: Daniela Zendejas PT Service: ? Author Type: Physical Therapist Type: Progress Notes Filed: 08/06/2021 1:31 PM Note Text: Episode Visit Count: 2 Therapist That Will Oversee The Plan Of Care: Daniela Zendejas Start of Care Date: 07/27/21 Onset Date: 07/27/13 Plan of Care Certification Date: 07/27/21 Next Certification Due Date: 08/31/21 Patient Identified by Name and Date of : Yes REHABILITATION AND SPORTS THERAPY PHYSICAL THERAPY TREATMENT NOTE ASSESSMENT: Yusef Muir tolerated the session with decreased pain. He demonstrated difficulty with increase pain with extension based exercises and improvements in pain with flexion direction and soft tissue mobs .He was receptive to newly added exercises for home program and had less pain at end of treatment. The patient will continue to benefit from ongoing skilled physical therapy to progress toward set goals. PLAN FOR NEXT VISIT: Progress core stabilization in flexion or neutral spine positions. SUBJECTIVE: Patient Reason for Visit: Patient reports feeling about the same. He reports doing flexion and extension exercises and both ar painful. He repports shapr pain across both sides of back currently. Pain: Pain Pain Level: 9 Pain Location: Low Back/Lumbar Spine - Right;Low Back/Lumbar Spine - Left Description: Sharp Frequency: Continuous Post Treatment Pain Post Treatment Pain Level: 7 Post Treatment Pain Location: Low Back/Lumbar Spine - Right;Low Back/Lumbar Spine - Left Post Treatment Pain Description: (pulsating) Post Treatment Symptoms: feels a little better OBJECTIVE MEASURES WITH LEVEL OF FUNCTION: Patient demonstrated difficulty with increase pain with extension based exercises and improvements in pain with flexion direction and soft tissue mobs . TREATMENT: Therapeutic Exercise: 1: Prone lying x 2 minutes. 2: Prone prop on elbows x 5 minutes (Foam roller and lacrosse ball mobs lower thoracic and lumbar region during this) 3: Prone alt hip extension right and left 1x5 with sharp pain with lifts. 4: *Supine right and left 3x30 seconds (feels better than lying on stomach) 5: *Lateral trunk rotation 1x10 each way (Education to stretch without causing increase pain) 6: Seated flexion 3x10 seconds (burning feeling in right low back) 7: *Sit to stand from mat table 21 2x5 8: *Seated TA 3 second hold x 10 (education to do 3-5 times throughout the day) Skilled Intervention: Patient was educated in proper exercise technique and purpose for exercises. Reviewed and educated patient on additions/changes for home exercise program as above (*). Skilled judgment was provided in selection of appropriate interventions. Provided written instruction for home exercise program to facilitate proper performance and compliance. Correct performance of therapeutic exercises was facilitated with verbal and visual cuing. Billing Therapeutic Exercise Treatment Minutes: 47 Total Treatment Time Minutes (timed/untimed): 47 Humberto Henley, ANGELA Zendejas, [facility]05-02-2022 History of Present illness Narrative* Daniela Zendejas, PT - 08/06/2021 9:29 AM EDT Episode Visit Count: 2 Therapist That Will Oversee The Plan Of Care: Daniela Zendejas Start of Care Date: 07/27/21 Onset Date: 07/27/13 Plan of Care Certification Date: 07/27/21 Next Certification Due Date: 08/31/21 Patient Identified by Name and Date of : Yes REHABILITATION AND SPORTS THERAPY PHYSICAL THERAPY TREATMENT NOTE ASSESSMENT: Yusef Muir tolerated the session with decreased pain. He demonstrated difficulty with increase pain with extension based exercises and improvements in pain with flexion direction andsoft tissue mobs .He was receptive to newly added exercises for home program and had less pain at end of treatment. The patient will continue to benefit from ongoing skilled physical therapy to progress toward set goals. PLAN FOR NEXT VISIT: Progress core stabilization in flexion or neutral spine positions. SUBJECTIVE: Patient Reason for Visit: Patient reports feeling about the same. He reports doing flexion and extension exercises and both ar painful. He repports shapr pain across both sides of back currently. Pain: Pain Pain Level: 9 Pain Location: Low Back/Lumbar Spine - Right;Low Back/Lumbar Spine - Left Description: Sharp Frequency: Continuous Post Treatment Pain Post Treatment Pain Level: 7 Post Treatment Pain Location: Low Back/Lumbar Spine - Right;Low Back/Lumbar Spine - Left Post Treatment Pain Description: (pulsating) Post Treatment Symptoms: feels a little better OBJECTIVE MEASURES WITH LEVEL OF FUNCTION: Patient demonstrated difficulty with increase pain with extension based exercises and improvements in pain with flexion direction and soft tissue mobs . TREATMENT: Therapeutic Exercise: 1: Prone lying x 2 minutes. 2: Prone prop on elbows x 5 minutes (Foam roller and lacrosse ball mobs lower thoracic and lumbar region during this) 3: Prone alt hip extension right and left 1x5 with sharp pain with lifts. 4: *Supine right and left 3x30 seconds (feels better than lying on stomach) 5: *Lateral trunk rotation 1x10 each way (Education to stretch without causing increase pain) 6: Seated flexion 3x10 seconds (burning feeling in right low back) 7: *Sit to stand from mat table 21 2x5 8: *Seated TA 3 second hold x 10 (education to do 3-5 times throughout the day) Skilled Intervention: Patient was educated in proper exercise technique and purpose for exercises. Reviewed and educated patient on additions/changes for home exercise program as above (*). Skilled judgment was provided in selection of appropriate interventions. Provided written instruction for home exercise program to facilitate proper performance and compliance. Correct performance of therapeutic exercises was facilitated with verbal and visual cuing. Billing Therapeutic Exercise Treatment Minutes: 47 Total Treatment Time Minutes (timed/untimed): 47 ANGELA Regalado PT [facility] Miscellaneous Notes* [facility] - Chantal Mayfield, RT(R) - 07/28/2021 8:00 AM EDT Radiology Service Progress Note PATIENT NAME: Yusef Muir DATE OF SERVICE: July 28, 2021 TIME: 8:20 AM PATIENT IDENTITY VERIFICATION COMPLETED USING TWO (2) IDENTIFIERS: Name and Date of confirmedby patient verbally and Name and Date of confirmed by identification band. FALL SCREENING: Has the patient had 2 falls in the last year or 1 fall with injury or currently using an Ambulatory Assistive Device (Walker, Cane, Wheelchair, Crutches, etc.)? No PATIENT GENDER DATA: Male PATIENT RELEVANT IMPLANT DATA REVIEWED: Not Applicable RADIOLOGY DEPARTMENT: CT; Exam(s) Completed: Upper extremity PERIPHERAL IV DATA: Not applicable SIGNED BY: RT Jessa(R) July 28, 2021 8:20 AM [facility]22 NoteHNO ID: [id number] Author: Daniela Zendejas, PT Service: ? Author Type: Physical Therapist Type: Progress Notes Filed: 07/27/2021 3:31 PM Note Text: Episode Visit Count: 1 Therapist That Will Oversee The Plan Of Care: Daniela Zendejas Start of Care Date: 07/27/21 Onset Date: 07/27/13 Plan of Care Certification Date: 07/27/21 Next Certification Due Date: 08/31/21 Patient Identified by Name and Date of : Yes REHABILITATION AND SPORTS THERAPY PHYSICAL THERAPY EVALUATION PLAN OF CARE: Assessment: Yusef Muir presents with diagnosis of chronic bilateral low back pain that interferes with working;sitting;twisting;driving;bending;lifting;rising from a chair;walking in the house;walking in the community;stair negotiation . He presents with impairments in ADL's, flexibility, independence in exercise, joint mobility, overall function, range of motion and tissue tenderness. Prognosis for therapy is Fair due to: chronic nature of impairments;decreased motivation;coping skills;limited tolerance to activity;poor understanding of deficits;Prognosis may be improved by;occupational demands;clinical presentation;multiple co- morbidities (pt. agrees to try to move as tolerated). He will benefit from skilled therapy services to meet the goals established for this plan of care as noted below. Classification Low Back Pain Subgroup Classification: Spinal mobilization subgroup: recommended visits 6. Spinal Mobilization Subgroup Classification based on: endrange pain;paraspinal pain;ROM loss Goals for Episode of Care: created on 07/27/21 through 09/07/21 Independent in home exercises. Patient will decrease pain rating by 2 points to meet minimal clinical important difference for numeric pain rating scale. Restore pain-free lumbar ROM to moderate to minimal AROM grossly to allow for improved functional mobility to complete work tasks and ADLs. Stand / Walk 30 to 45 min without increased pain/symptoms. Sit 1-2 hours without pain/symptoms to allow for seated activities and rest without limitation due to increased low back pain. Maintain proper sitting posture throughout session Patient will be able to tolerate functional activities for 2-3 hours and work activities for 4-8 hours without increased symptoms. Patient will be able to correct postural deviations independently in order to improve postural alignment of trunk during transfers, ambulation, sitting, standing and functional activities. Knowledgeable regarding prophylaxis. Patient Goals: reduce and self manage LBP pain with ADLs and work activities Planned Interventions, Frequency, and Duration: Current Frequency: 2x/week Duration: 6 weeks Total Number of Visits Planned: 12 Planned Treatment Interventions: Therapeutic exercise (44517);Neuromuscular re-education (27759);Manual therapy (72094);Therapeutic activities (30960);Self-intermediate management (33495);Patient/Family/Caregiver Education PLAN FOR NEXT VISIT: Assess symptom response to repeated lumbar extension specific direction, try unloaded repeated lumbar extension prone if symptoms do not change or become worse. Patient demonstrates good understanding of plan of care and treatment. The above goals and plan of care were discussed and agreed upon by patient/family. SUBJECTIVE: Yusef Muir is a 56 year old male seen today for for chronic R side LBP that onset 2013 without specific known cause or injury per pt. report. Pt. reports the pain is at a 10/10 at rest and limits his ability to perform work activities including bending, lifting, twisting, prolonged standing or sitting, and walking. Pt. referred by pain management and taking meloxicam. 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 (allergic to aspirin) Falls Interview: Two or more falls in the last year;Fall without injury in the last year Falls Intervention: More thorough falls assessment to be performed Red Flags Vertebral Fracture Clinical Reasoning: No identified risk factors Abdominal Aortic Aneurysm Clinical Reasoning: No identified risk factors. Cancer Red Flags: Age >50 or <20 Cancer Clinical Reasoning: Proceed with caution Infection Clinical Reasoning: No identified risk factors. Cauda Equina Syndrome Clinical Reasoning: No identified risk factors. Red Flags - Cervical Cancer Red Flags: Age >50 or <20 Cancer Clinical Reasoning: Pro (more content not included)...[facility]04-22-2022 History of Present illness Narrative* Daniela Sirena, PT - 07/27/2021 1:55 PM EDT Episode Visit Count: 1 Therapist That Will Oversee The Plan Of Care: Daniela Zendejas Start of Care Date: 07/27/21 Onset Date: 07/27/13 Plan of Care Certification Date: 07/27/21 Next Certification Due Date: 08/31/21 Patient Identified by Name and Date of : Yes REHABILITATION AND SPORTS THERAPY PHYSICAL THERAPY EVALUATION PLAN OF CARE: Assessment: Yusef Muir presents with diagnosis of chronic bilateral low back pain that interferes with working;sitting;twisting;driving;bending;lifting;rising from a chair;walking in the house;walking in the community;stair negotiation . He presents with impairments in ADL's, flexibility, independence in exercise, joint mobility, overall function, range of motion and tissue tenderness. Prognosis for therapy is Fair due to: chronic nature of impairments;decreased motivation;coping skills;limited tolerance to activity;poor understanding of deficits;Prognosis may be improved by;occupationaldemands;clinical presentation;multiple co- morbidities (pt. agrees to try to move as tolerated). Messiwill benefit from skilled therapy services to meet the goals established for this plan of care as noted below. Classification Low Back Pain Subgroup Classification: Spinal mobilization subgroup: recommended visits 6. Spinal Mobilization Subgroup Classification based on: endrange pain;paraspinal pain;ROM loss Goals for Episode of Care: created on 07/27/21 through 09/07/21 Independent in home exercises. Patient will decrease pain rating by 2 points to meet minimal clinical important difference for numeric pain rating scale. Restore pain-free lumbar ROM to moderate to minimal AROM grossly to allow for improved functional mobility to complete work tasks and ADLs. Stand / Walk 30 to 45 min without increased pain/symptoms. Sit 1-2 hours without pain/symptoms to allow for seated activities and rest without limitation due to increased low back pain. Maintain proper sitting posture throughout session Patient will be able to tolerate functional activities for 2-3 hours and work activities for 4-8 hours without increased symptoms. Patient will be able to correct postural deviations independently in order to improve postural alignment of trunk during transfers, ambulation, sitting, standing and functional activities. Knowledgeable regarding prophylaxis. Patient Goals: reduce and self manage LBP pain with ADLs and work activities Planned Interventions, Frequency, and Duration: Current Frequency: 2x/week Duration: 6 weeks Total Number of Visits Planned: 12 Planned Treatment Interventions: Therapeutic exercise (94908);Neuromuscular re- education (92688);Manual therapy (30932);Therapeutic activities (97907);Self- intermediate management (77492);Patient/Family/Caregiver Education PLAN FOR NEXT VISIT: Assess symptom response to repeated lumbar extension specific direction, try unloaded repeated lumbar extension prone if symptoms do not change or become worse. Patient demonstrates good understanding of plan of care and treatment. The above goals and plan of care were discussed and agreed upon by patient/family. SUBJECTIVE: Yusef Muir is a 56 year old male seen today for for chronic R side LBP that onset 2013 without specific known cause or injury per pt. report. Pt. reports the pain is at a 10/10 at rest and limits his ability to perform work activities including bending, lifting, twisting, prolongedstanding or sitting, and walking. Pt. referred by pain management and taking meloxicam. 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 Cancer Red Flags: Age >50 or <20 Cancer Clinical Reasoning: Proceed with caution Infection Clinical Reasoning: No identified risk factors. Cauda Equina Syndrome Clinical Reasoning: No identified risk factors. Red Flags - Cervical Cancer Red Flags: Age >50 or <20 Cancer Clinical Reasoning: Proceed with caution Infection Clinical Reasoning: No identified risk factors. Spine History Symptoms Location at Onset: Back Symptoms Since Onset: Worsening Pain is Worse Always: Bending;Sitting;Rising;Driving;Standing;Turning;Walking;Prolonged positions Pain is Better Always: As the day progresses Sleep Affected by Pain: Not affected by pain Pain: Pain Pain Level: 10 Pain Location: Low Back/Lumbar Spine - Right Description: Sharp;Burning;Shooting Frequency: Continuous Post Treatment Pain Post Treatment Pain Level: 9 Post Treatment Pain Location: Low Back/Lumbar Spine - Right Post Treatment Pain Description: Sharp;Burning;Shooting Post Treatment Symptoms: it's about a 9.5 PROMIS Scales T-scores: mean of general population = 50. 5 points is clinically meaningfully difference Percentiles provide an indication of how the patient's score ranks in relation to the general population. Higher percentile rankings indicate better function/quality of life. 50th percentile is the average of the general population and indicates half of respondents had a worse score. T-scores: mean of general population = 50. 5 points is clinically meaningfully difference Percentiles provide an indication of how the patient's score ranks in relation to the general population. Higher percentile rankings indicate better function/quality of life. 50th percentile is the average of the general population and indicates half of respondents had a worse score. OBJECTIVE MEASURES WITH LEVEL OF FUNCTION: Cognition Cognition: Follows Commands Posture / Alignment Posture: Forward head;Increased thoracic kyphosis;Rounded shoulders;Decreased lumbar lordosis;Slump Sitting Posture: Slump;Increased thoracic kyphosis;Decreased lumbar lordosis Effects of Posture Correction: worse Spine Observations R Lumbar Spine Palpation Tenderness: Spinous process;Paraspinals;Quadratus Lumborum;Iliacus Sensation - Lumbar Sensation: Grossly Intact Lumbar Spine AROM Lumbar Flexion: Major limitation;Increased pain;Pain during movement Lumbar Extension: Major limitation;Increased pain;Pain during movement Lumbar R Side-Bend: Major limitation;Increased pain;Pain during movement Lumbar L Side-Bend: Increased pain;Pain during movement;Moderate limitation Lumbar R Rotation: Major limitation;Increased pain Lumbar L Rotation: Moderate limitataion;End range pain Repeated Test Movements - Lumbar RFIS - Symptoms During: increases RFIS - Symptoms After: worse SUZY - Symptoms During: increases SUZY - Symptoms After: no effect LE Strength R LE Strength: no myotomal weakness observed L LE Strength: no myotomal weakness observed Functional Strength Functional Strength: Sit<>stand Sit/Stand: uses BUE armrests, very slow and cautious Gait Gait: Independent Gait Device: None Gait Deviations: General Deviations General Deviations/Observations: Arm swing decreased;Leslie decreased;Flexed trunk posture;Lateralsway increased;Non-functional gait speed;Visual scanning/environmental awareness decreased (sways Lwith L stance) Gait Observation: pt. unable to follow cues to maintain forward gaze with ambulation Education: Education Learning Preferences: Demonstration;Explanation;Performance;Printed Materials Barriers: Desire and Motivation Learning/educational needs: Plan of Care;Posture;Home exercise program;Gait Training Education Provided: Yes, see treatment interventions for education provided Education Provided To: Patient Education Mode/Type: Explanation/Discussion;Literature/Printed Materials;Performance;Demonstration Response to Education/Teach Back: States/Identifies;Return Demonstration TREATMENT: PT Treatment Interventions: Therapeutic Exercise;Self-Snf Management Evaluation Evaluation Therapeutic Exercise: 1: repeated lumbar flexion standing 10x 2: *repeated lumbar extension in standing 3x30, 3x/day to improve lumbar spine mobility. Skilled Intervention: Patient was educated in proper exercise technique and purpose for exercises. Reviewed and educated patient on additions/changes for home exercise program as above (*). Skilled judgment was provided in selection of appropriate interventions. Correct performance of therapeutic exercises was facilitated with verbal and visual cuing. Education regarding posture correction/use of lumbar roll. Educated patient on rationale for performing exercises in regards to decreasing fatigue , increase ease of ADL and ROM and function . Patient education as noted. Self-Snf Management: 1: *lumbar roll and postural education 2: *encouraged pt. to move as he is able to tolerate rather than avoid active low back movement 3: *lifting and carrying safe body mechanics 4: *pt. education regarding amount of force to the lower back in prolonged sitting positions as compared to standing. Encouraged standing as as frequently as every waking hour. 5: *answered pt. question what is chronic pain Skilled Intervention: Skilled judgment in the selection of proper modification for activity of daily living/home management based on clinical presentation, deficits, and needs. Educated the patient regarding recommendations and provided written instruction to facilitate compliance. Reviewed patient specific diagnosis in relation to activities of daily living/home management. Activity progression based on professional judgement. Maximum verbal cues for maintaining neutral spine alignment. Correct performance of home program was facilitated with verbal and visual cueing. Billing * Evaluation Low Complexity: 1 Unit Therapeutic Exercise Treatment Minutes: 15 Self-Care/Home Management Treatment Minutes: 10 Total Treatment Time Minutes (timed/untimed): 45 Daniela Zendejas PT [facility]04-[facility] NoteHNO ID: [id number] Author: Mary Mcnulty MD Service: ? Author Type: Physician Type: Progress Notes Filed: 07/25/2021 10:05 AM Note Text: [facility] Date: July 25, 2021 - 8:51 AM Yusef Muir is seen in consultation requested by Dr. Janessa Moreno for an opinion regarding chronic lower back pain. My final recommendations will be communicated back to the requesting physician by way of shared medical record or via US mail. Chief Complaint: back pain SUBJECTIVE: Yusef Muir, is a 56 year old male who presents with lower back pain. The pain started years ago, with a history of back injury related to work at a [employer] company. He has had recurrence of back pain and is s/p lumbar injection in the past with minimal improvement. The pain onset was gradual over the years. The patient states that the current pain is intermittent and persistent. His pain is located in the bilateral lumbar region and does not radiate.. // The pain is described as burning and sharp. The pain intensity is rated 10. The pain is exacerbated by walking, twisting, flexion, driving/riding in car and entering/exiting a car and relieved by no known factors. Symptoms interfere with physical activity, work, walking, sleeping, sitting, bathing, driving, cooking, household cleaning, lifting and social activities. 100% pain in spine vs 0% (radiating) pain in the extremity. Litigation: No. Worker's Compensation: No. Prior pain treatment has included medications - Lidocaine patches with no relief. TENS unit with no relief. Injections - in [id number] Dr. Moody with no relief. ALLERGIES Allergen Reactions - Asa [Salicylates] Other: See Comments Nose bleeds Current Medications: Pain medications reviewed and reconciled in the medication list: Yes. Current Outpatient Medications Medication Sig - furosemide (LASIX) 20 mg tablet Take 20 mg by mouth once daily. - lisinopril (ZESTRIL, PRINIVIL) 20 mg tablet Take 20 mg by mouth once daily. - cephALEXin (KEFLEX) 500 mg capsule Take 500 mg by mouth four times daily. - rOPINIRole (REQUIP) 1 mg tablet Take 1 mg by mouth daily at bedtime. - cyclobenzaprine (FLEXERIL) 10 mg tablet Take 1 tablet by mouth every 8 hours as needed. - metFORMIN (GLUCOPHAGE) 500 mg tablet Take 2 tablets by mouth twice daily with meals. - glimepiride (AMARYL) 2 mg tablet Take 2 mg by mouth daily with breakfast. - SIMVASTATIN 10 mg tablet Take 10 mg by mouth daily at bedtime. - meloxicam (MOBIC) 15 mg tablet Take 1 tablet by mouth once daily. - lidocaine (LIDODERM) 5 % Apply 1 Patch as directed every 12 hours. Remove old patch prior to placing new patch. Location: right thigh - diclofenac (VOLTAREN) 1 % topical gel Apply 2 g to affected area four times daily. - gabapentin (NEURONTIN) 600 mg tablet Take 600 mg by mouth as needed. - DULoxetine (CYMBALTA) 30 mg capsule Take 30 mg by mouth once daily. - FLAXSEED OIL (OMEGA 3 ORAL) Take 1,000 mg by mouth twice daily. - losartan (COZAAR) 100 mg tablet Take 100 mg by mouth once daily. - albuterol HFA (VENTOLIN HFA) 90 mcg/actuation inhaler Inhale 2 Puffs as instructed as needed. (Patient not taking: Reported on 07/25/2021 ) - amLODIPine 5 mg tablet Take 5 mg by mouth once daily. - omeprazole 20 mg capsule Take 20 mg by mouth once daily. - FREESTYLE LITE STRIPS test strip - FREESTYLE FREEDOM LITE monitoring kit - FREESTYLE LANCETS lancets No current facility-administered medications for this visit. PAST MEDICAL HISTORY Diagnosis Date - Anxiety disorder - Chronic pain - COPD mixed type (HCC) - Diabetes mellitus (HCC) 06/13/2011 - DVT (deep venous thrombosis) (HCC) - HTN (hypertension) 06/11/2011 - Neuropathy - Obstructive sleep apnea - Restless leg syndrome PAST SURGICAL HISTORY Procedure Laterality Date - PAST SURGICAL HISTORY OF 2014 Heart cath - PAST SURGICAL HISTORY OF Right 2000 Right rotator cuff repair by Dr. Persaud - REMOVAL ADENOIDS,PRIMARY,<12 Y/O - REPAIR BICEPS TENDON RUPTURE Bilateral - REPAIR OF KNEE both knees FAMILY HISTORY Problem Relation Age of Onset - Diabetes Mother 45 age65 - COPD Mother - Cancer Father lung Social History: Alcohol Use: Yes (daily, beer) Tobacco Use: 0.5 packs/day, for 2 years. Quit 07/16/1989. Types: Cigarettes, Chew Drug Use: No Employer And Job Title: No employer specified ([employer]) Years Of Education Completed: Not specified Marital Status: Single REVIEW OF SYSTEMS: Constitutional: (-) Fever (-) Night Sweats (-) Weight Gain (-) Weight Loss (+) Fatigue Cardiovascular: (+) Chest Pain (-) Palpitations (+) Lightheadedness (-) Swelling of Ankles (-) Hx Heart Surgery Respiratory: (+) Shortness of Breath (+) Cough (+) Wheezing (+) Snoring Gastrointestinal: (-) Incontinence (-) Abdominal Pain (+) Diarrhea (-) Constipation (-) Nausea/Vomiting (+) Heart Burn/Acid Reflux (more content not included)...[facility]04-20-2022 History of Present illness Narrative* Mary Mcnulty MD - 07/25/2021 8:51 AM EDT [facility] Date: July 25, 2021 - 8:51 AM Yusef Muir is seen in consultation requested by Dr. Janessa Moreno for an opinion regarding chronic lower back pain. My final recommendations will be communicated back to the requesting physician by way of shared medical record or via US mail. Chief Complaint: back pain SUBJECTIVE: Yusef Muir, is a 56 year old male who presents with lower back pain. The pain started years ago, with a history of back injury related to work at a [employer]. He has had recurrence of back pain and is s/p lumbar injection in the past with minimal improvement. The pain onset was gradual over the years. The patient states that the current pain is intermittent and persistent. His pain is located in the bilateral lumbar region and does not radiate.. // The pain is described as burning and sharp. The pain intensity is rated 10. The pain is exacerbatedby walking, twisting, flexion, driving/riding in car and entering/exiting a car and relieved by no known factors. Symptoms interfere with physical activity, work, walking, sleeping, sitting, bathing,driving, cooking, household cleaning, lifting and social activities. 100% pain in spine vs 0% (radiating) pain in the extremity. Litigation: No. Worker's Compensation: No. Prior pain treatment has included medications - Lidocaine patches with no relief. TENS unit with norelief. Injections - in [id number] Dr. Moody with no relief. ALLERGIES Allergen Reactions Asa [Salicylates] Other: See Comments Nose bleeds Current Medications: Pain medications reviewed and reconciled in the medication list: Yes. Current Outpatient Medications Medication Sig furosemide (LASIX) 20 mg tablet Take 20 mg by mouth once daily. lisinopril (ZESTRIL, PRINIVIL) 20 mg tablet Take 20 mg by mouth once daily. cephALEXin (KEFLEX) 500 mg capsule Take 500 mg by mouth four times daily. rOPINIRole (REQUIP) 1 mg tablet Take 1 mg by mouth daily at bedtime. cyclobenzaprine (FLEXERIL) 10 mg tablet Take 1 tablet by mouth every 8 hours as needed. metFORMIN (GLUCOPHAGE) 500 mg tablet Take 2 tablets by mouth twice daily with meals. glimepiride (AMARYL) 2 mg tablet Take 2 mg by mouth daily with breakfast. SIMVASTATIN 10 mg tablet Take 10 mg by mouth daily at bedtime. meloxicam (MOBIC) 15 mg tablet Take 1 tablet by mouth once daily. lidocaine (LIDODERM) 5 % Apply 1 Patch as directed every 12 hours. Remove old patch prior to placing new patch. Location: right thigh diclofenac (VOLTAREN) 1 % topical gel Apply 2 g to affected area four times daily. gabapentin (NEURONTIN) 600 mg tablet Take 600 mg by mouth as needed. DULoxetine (CYMBALTA) 30 mg capsule Take 30 mg by mouth once daily. FLAXSEED OIL (OMEGA 3 ORAL) Take 1,000 mg by mouth twice daily. losartan (COZAAR) 100 mg tablet Take 100 mg by mouth once daily. albuterol HFA (VENTOLIN HFA) 90 mcg/actuation inhaler Inhale 2 Puffs as instructed as needed. (Patient not taking: Reported on 07/25/2021 ) amLODIPine 5 mg tablet Take 5 mg by mouth once daily. omeprazole 20 mg capsule Take 20 mg by mouth once daily. FREESTYLE LITE STRIPS test strip FREESTYLE FREEDOM LITE monitoring kit FREESTYLE LANCETS lancets No current facility-administered medications for this visit. PAST MEDICAL HISTORY Diagnosis Date Anxiety disorder Chronic pain COPD mixed type (HCC) Diabetes mellitus (HCC) 06/13/2011 DVT (deep venous thrombosis) (HCC) HTN (hypertension) 06/11/2011 Neuropathy Obstructive sleep apnea Restless leg syndrome PAST SURGICAL HISTORY Procedure Laterality Date PAST SURGICAL HISTORY OF 2013 Heart cath PAST SURGICAL HISTORY OF Right 2000 Right rotator cuff repair by Dr. Persaud REMOVAL ADENOIDS,PRIMARY,<12 Y/O REPAIR BICEPS TENDON RUPTURE Bilateral REPAIR OF KNEE both knees FAMILY HISTORY Problem Relation Age of Onset Diabetes Mother 45 age65 COPD Mother Cancer Father lung Social History: Alcohol Use: Yes (daily, beer) Tobacco Use: 0.5 packs/day, for 2 years. Quit 07/16/1989. Types: Cigarettes, Chew Drug Use: No Employer And Job Title: No employer specified ([employer]) Years Of Education Completed: Not specified Marital Status: Single REVIEW OF SYSTEMS: Constitutional: (-) Fever (-) Night Sweats (-) Weight Gain (-) Weight Loss (+) Fatigue Cardiovascular: (+) Chest Pain (-) Palpitations (+) Lightheadedness (-) Swelling of Ankles (-) Hx Heart Surgery Respiratory: (+) Shortness of Breath (+) Cough (+) Wheezing (+) Snoring Gastrointestinal: (-) Incontinence (-) Abdominal Pain (+) Diarrhea (-) Constipation (-) Nausea/Vomiting (+) Heart Burn/Acid Reflux Endocrine: (-) Thyroid Disorder (+) Diabetes Hematologic: (-) Prolonged Bleeding (+) Easy Bruising Genitourinary: (-) Incontinence (+) Frequency (-) Urinary Urgency Skin: (-) Rashes (-) Itching (-) Other Lesions Neurologic: (+) Headache (-) Double Vision (-) Confusion (-) Paralysis (-) Vertigo (-) Syncope Psychiatric: (-) Depression (-) Anxiety (-) Delusions (-) Hallucinations (-) Suicidal Thoughts OARRS Report reviewed: Yes Narcotic Agreement reviewed and signed?: N/A Baseline Urine Toxicology obtained: N/A Urine Panel: No results found for: UQCANN, UQBNZL, ZZL7DJL, UQAMPH, UQMAMP, UQBUPRE, UQNORBUP, UQMTHD, UQEDDP, UQTRAM, UQDTRM, UQFNTL, UQNFTL, UQCODE, UQMORP, UQDCDN, UQHCOD, UQOXYC, UQHMOR, UQOXYM, UQCREA, UQPH,UQSPGR, UQOXID, UQSPQ The pain panel was N/A OBJECTIVE: Performed in conjunction with observation. The patient was alert and oriented x3. The patient was in no acute distress. Lungs: Clear, negative for dyspnea or distress. CVR: Negative for SOB or peripheral edema. Neck: Supple. The range of motion was intact. Negative focal tenderness Cervical facet loading: Negative Back: Range of motion of the trunk was limited in all directions. Flexion was less than 20 degrees and extension was less than 5 degrees. Mild tenderness in the upper lumbar bilaterally over the paraspinal muscle group and also over the lumbosacral junction bilaterally. SLR: Negative Facet Loading: Positive/equivocal with axial loading and extension. SI joint: Negative PSIS tenderness. Negative sacral thrust. Extremities: no reported edema or erythema. Motor: Negative focal deficits Sensory: Intact to light touch and sharp throughout the lower extremities. Gait: Within normal limits Medical record and diagnostic tests reviewed for today's visit: The [facility] EMR was reviewed during thevisit IMAGING STUDIES: No new imaging studies were reviewed during this office visit. ASSESSMENT: (M62.830) Spasm of lumbar paraspinous muscle (primary encounter diagnosis) (M54.50, G89.29) Chronic bilateral low back pain, unspecified whether sciatica present (M79.18) Myofascial pain syndrome of lumbar spine Discussion: A discussion was entertained regarding multicomponent back pain source. Discussed conservative options and focus on improvement of function and the concerns of ongoing chronic pain. Discussed the rationale behind interventional approach and how it can facilitate improvement of pain but also diagnostic information that procedures provide. retirement use of any opioid pain medication is discouraged in chronic benign pain. PLAN: 1. Recommend physical therapy 2. No interventional procedures indicated 3. Signed Prescriptions Disp Refills meloxicam (MOBIC) 15 mg tablet 30 tablet 1 Sig: Take 1 tablet by mouth once daily. 4. Counseled patient regarding the importance of activity modification and exercise. 5. Follow up: 2 to 3 months. The above plan and management options were discussed with patient. The patient is in agreement withthe above and verbalized understanding. I have discussed and confirmed the above treatment plan with the patient and I have reviewed the nurses notes and I am aware of the family/social history. I have confirmed ROS findings. Mary Mcnulty MD July 25, 2021 cc: Janessa Moreno [phone] [facility] [id number] Results of consultation to be transmitted via electronic medical record for those providers who practice within [facility] or with access to [employer] via MD Connect, or via letter. [facility] Miscellaneous Notes* Telephone Encounter - Jaclyn Villanueva Ma - 07/24/2021 3:06 PM EDT Patient contacted via telephone regarding upcoming NEW patient appointment with Dr. Mcnulty on 07/25/21. Patient informed of the following: This is the [facility] calling regarding your upcoming appointment with Dr. Mcnulty. To avoid a delay in your care, please bring any imaging (such as MRI, CT, XR, etc.) that have been done outside of the [facility] on a disk to be viewed at your appointment. Please be advised that this appointment is a consult only and narcotics will NOT be prescribed. is primarily an interventional pain management provider. He treats with physical therapy, injections of the spine or joints, and non- narcotic medications. Dr. Mcnulty will not take over and manage any medications that are already being prescribed by another provider. Patient verbalized understanding with no additional questions at this time. [facility]04[facility] Miscellaneous Notes* Telephone Encounter - Gui Trammell [facility] [place] - 07/16/2021 5:56 PM EDT I called and spoke with Chi, he will be at the appointment and did advise he will need his [employer] paperwork signed that he was at the appointment. * Telephone Encounter - Guadalupe Zepeda - 07/13/2021 11:[address] Moreno referred patient to Spine department for LBP. We did not have order when patient left. We scheduled appointment and called and LEFT MESSAGE for patient providing the appointment information. Asked the patient to call office back to confirm receiving message. [facility]04[facility]22 NoteHNO ID: [id number] Author: Janessa Moreno, DO Service: ? Author Type: Physician Type: Progress Notes Filed: 07/13/2021 10:58 AM Note Text: Reason for Visit/Chief Complaint Yusef Muir is a 56 year old male who presents today for a new evaluation of following complaint: Patient presents with: Left Wrist - New, Pain, Swelling Left Elbow - New, Pain, Swelling History of Present Illness: PAIN EVALUATION 07/13/2021 1010 Pain Level: 3 Pain Location: Arm-Forearm Left Description: Aching;Dull;Sore;Stiffness Duration Amount of Time: 3 Duration Units: Years Frequency: Intermittent Intervention/Comfort measure: Reposition;Relaxation;Medication;Heat HPI: Yusef Muir is a 56 year old male presenting today with left elbow and wrist pain. Had a previous surgery in 2019 on distal biceps tendon. After surgery he fractures elbow and wrist and could not be casted due to surgery. Now has trouble with rotation at the elbow. Pain history is noted as above. Denies numbness, tingling, fever, chills or other constitutional symptoms.RHD Previous Treatments: Ice: No Heat: Yes Brace: No NSAIDs: No Injections: No Surgeries: Yes, stated above Physical Therapy: No Review of Systems: Patient did not have, and does not currently have, any weight loss, malaise, fever, chills, headache, chest pain, chest pressure, palpitations, cough, shortness of breath, orthopnea, paroxsymal nocturnal dyspnea, nausea, vomiting, diarrhea, constipation, melena, hematochezia, urinary difficulties, prolonged bleeding, easily bruising, heat or cold intolerance, new onset joint pain or swelling, new onset extremity weakness or numbness, new onset auditory or visual disturbances, lightheadedness, dizziness, partial loss of consciousness or full loss of consciousness. Current Outpatient Medications on File Prior to Visit Medication Sig - lidocaine (LIDODERM) 5 % Apply 1 Patch as directed every 12 hours. Remove old patch prior to placing new patch. Location: right thigh - diclofenac (VOLTAREN) 1 % topical gel Apply 2 g to affected area four times daily. - gabapentin (NEURONTIN) 600 mg tablet - rOPINIRole (REQUIP) 1 mg tablet Take by mouth. - cyclobenzaprine (FLEXERIL) 10 mg tablet Take 1 tablet by mouth every 8 hours as needed. - DULoxetine (CYMBALTA) 30 mg capsule Take 30 mg by mouth once daily. - metFORMIN (GLUCOPHAGE) 500 mg tablet Take 2 tablets by mouth twice daily with meals. - FLAXSEED OIL (OMEGA 3 ORAL) Take 1,000 mg by mouth twice daily. - losartan (COZAAR) 100 mg tablet Take 100 mg by mouth once daily. - albuterol HFA (VENTOLIN HFA) 90 mcg/actuation inhaler Inhale 2 Puffs as instructed as needed. - amLODIPine 5 mg tablet Take 5 mg by mouth once daily. - omeprazole 20 mg capsule Take 20 mg by mouth once daily. - GLIMEPIRIDE 4 mg tablet Take 4 mg by mouth twice daily with meals. - FREESTYLE LITE STRIPS test strip - FREESTYLE FREEDOM LITE monitoring kit - FREESTYLE LANCETS lancets - SIMVASTATIN 10 mg tablet Take 10 mg by mouth daily at bedtime. No current facility-administered medications on file prior to visit. ALLERGIES Allergen Reactions - Asa [Salicylates] Other: See Comments Nose bleeds Physical Exam: Vitals: There were no vitals taken for this visit. Psych: Pleasant, good affect and mood General Appearance: Well appearing, alert, in no acute distress, well-hydrated, well nourished.. Skin: Skin color, texture, turgor normal, no suspicious rashes or lesions. Peripheral Pulses: Normal. Neurologic: Gait normal. Reflexes normal and symmetric. Sensation grossly intact.. Lymph Nodes: No cervical lymphadenopathy, No supraclavicular lymphadenopathy, No axillary lymphadenopathy. and No inguinal lymphadenopathy.. Respiratory: No recent pulmonary infection, hemoptysis, chronic cough, or shortness of breath at rest Rheumatologic: Joint deformities: Left elbow and wrist pain Right Elbow Exam Right elbow exam is normal. Tenderness The patient is experiencing no tenderness. Range of Motion Extension: normal Flexion: normal Pronation: normal Supination: normal Muscle Strength Pronation: 5/5 Supination: 5/5 Other Erythema: absent Sensation: normal Pulse: present Left Elbow Exam Tenderness Left elbow tenderness location: druj. Range of Motion Extension: normal Flexion: normal Pronation: abnormal Supination: abnormal Other Erythema: absent Sensation: normal Pulse: present Comments: Neutral 90/90 no supination/pronation: fixed Imaging: Last XR Elbow - Impression Only XR ELBOW SPECIAL VIEWS AP/LAT/OTHER LEFT Exam End: 07/13/2021 9:57 AM (Final result) Impression: IMPRESSION: Findings likely related to prior biceps tendon tear. Heterotopic ossifications are seen in the region of the distal biceps tendon with associated soft tissue swelling/prominence. There is increased heterotopic ossification in this region whe (more content not included)... [facility]04-08-2022 NoteHNO ID: [id number] Author: NICO Fowler Service: Radiology Author Type: Technologist Type: Progress Notes Filed: 07/13/2021 9:58 AM Note Text: Radiology Service Progress Note PATIENT NAME: Yusef Muir DATE OF SERVICE: July 13, 2021 TIME: 9:58 AM PATIENT IDENTITY VERIFICATION COMPLETED USING TWO (2) IDENTIFIERS: Name and Date of confirmed by patient verbally. FALL SCREENING: Has the patient had 2 falls in the last year or 1 fall with injury or currently using an Ambulatory Assistive Device (Walker, Cane, Wheelchair, Crutches, etc.)? No PATIENT GENDER DATA: Male PATIENT RELEVANT IMPLANT DATA REVIEWED: Not Applicable RADIOLOGY DEPARTMENT: General X-ray: Exam(s) Completed: Upper Extremity X-Ray(s): Elbow, left and Wrist, left PERIPHERAL IV DATA: Not applicable SIGNED BY: NICO Fowler July 13, 2021 9:58 AMBerger [id number] History of Present illness Narrative* Janessa Moreno, DO - 07/13/2021 10:23 AM EDT Reason for Visit/Chief Complaint Yusef Muir is a 56 year old male who presents today for a new evaluation of following complaint: Patient presents with: Left Wrist - New, Pain, Swelling Left Elbow - New, Pain, Swelling History of Present Illness: PAIN EVALUATION 07/13/2021 1010 Pain Level: 3 Pain Location: Arm-Forearm Left Description: Aching;Dull;Sore;Stiffness Duration Amount of Time: 3 Duration Units: Years Frequency: Intermittent Intervention/Comfort measure: Reposition;Relaxation;Medication;Heat HPI: Yusef Muir is a 56 year old male presenting today with left elbow and wrist pain. Had a previous surgery in 2019 on distal biceps tendon. After surgery he fractures elbow and wrist and could not be casted due to surgery. Now has trouble with rotation at the elbow. Pain history is noted asabove. Denies numbness, tingling, fever, chills or other constitutional symptoms.RHD Previous Treatments: Ice: No Heat: Yes Brace: No NSAIDs: No Injections: No Surgeries: Yes, stated above Physical Therapy: No Review of Systems: Patient did not have, and does not currently have, any weight loss, malaise, fever, chills, headache, chest pain, chest pressure, palpitations, cough, shortness of breath, orthopnea, paroxsymal nocturnal dyspnea, nausea, vomiting, diarrhea, constipation, melena, hematochezia, urinary difficulties, prolonged bleeding, easily bruising, heat or cold intolerance, new onset joint pain or swelling, newonset extremity weakness or numbness, new onset auditory or visual disturbances, lightheadedness, dizziness, partial loss of consciousness or full loss of consciousness. Current Outpatient Medications on File Prior to Visit Medication Sig lidocaine (LIDODERM) 5 % Apply 1 Patch as directed every 12 hours. Remove old patch prior to placing new patch. Location: right thigh diclofenac (VOLTAREN) 1 % topical gel Apply 2 g to affected area four times daily. gabapentin (NEURONTIN) 600 mg tablet rOPINIRole (REQUIP) 1 mg tablet Take by mouth. cyclobenzaprine (FLEXERIL) 10 mg tablet Take 1 tablet by mouth every 8 hours as needed. DULoxetine (CYMBALTA) 30 mg capsule Take 30 mg by mouth once daily. metFORMIN (GLUCOPHAGE) 500 mg tablet Take 2 tablets by mouth twice daily with meals. FLAXSEED OIL (OMEGA 3 ORAL) Take 1,000 mg by mouth twice daily. losartan (COZAAR) 100 mg tablet Take 100 mg by mouth once daily. albuterol HFA (VENTOLIN HFA) 90 mcg/actuation inhaler Inhale 2 Puffs as instructed as needed. amLODIPine 5 mg tablet Take 5 mg by mouth once daily. omeprazole 20 mg capsule Take 20 mg by mouth once daily. GLIMEPIRIDE 4 mg tablet Take 4 mg by mouth twice daily with meals. FREESTYLE LITE STRIPS test strip FREESTYLE FREEDOM LITE monitoring kit FREESTYLE LANCETS lancets SIMVASTATIN 10 mg tablet Take 10 mg by mouth daily at bedtime. No current facility-administered medications on file prior to visit. ALLERGIES Allergen Reactions Asa [Salicylates] Other: See Comments Nose bleeds Physical Exam: Vitals: There were no vitals taken for this visit. Psych: Pleasant, good affect and mood General Appearance: Well appearing, alert, in no acute distress, well-hydrated, well nourished.. Skin: Skin color, texture, turgor normal, no suspicious rashes or lesions. Peripheral Pulses: Normal. Neurologic: Gait normal. Reflexes normal and symmetric. Sensation grossly intact.. Lymph Nodes: No cervical lymphadenopathy, No supraclavicular lymphadenopathy, No axillary lymphadenopathy. and No inguinal lymphadenopathy.. Respiratory: No recent pulmonary infection, hemoptysis, chronic cough, or shortness of breath at rest Rheumatologic: Joint deformities: Left elbow and wrist pain Right Elbow Exam Right elbow exam is normal. Tenderness The patient is experiencing no tenderness. Range of Motion Extension: normal Flexion: normal Pronation: normal Supination: normal Muscle Strength Pronation: 5/5 Supination: 5/5 Other Erythema: absent Sensation: normal Pulse: present Left Elbow Exam Tenderness Left elbow tenderness location: druj. Range of Motion Extension: normal Flexion: normal Pronation: abnormal Supination: abnormal Other Erythema: absent Sensation: normal Pulse: present Comments: Neutral 90/90 no supination/pronation: fixed Imaging: Last XR Elbow - Impression Only XR ELBOW SPECIAL VIEWS AP/LAT/OTHER LEFT Exam End: 07/13/2021 9:57 AM (Final result) Impression: IMPRESSION: Findings likely related to prior biceps tendon tear. Heterotopic ossifications are seen in the region of the distal biceps tendon with associated soft tissue swelling/prominence. There is increased heterotopic ossification in this region when compared to the 2019 exam. Bony bridging extending between the proximal radius and ulna are likely related to prior trauma. ... Complete Results Assessment and Plan: Impression: Encounter Diagnosis ICD-10-CM 1. Chronic bilateral low back pain, unspecified whether sciatica present M54.50 CONSULT TO [facility] G89.29 2. Disorder of bone M89.9 CT ELBOW WO IVCON LT 3. Heterotopic ossification of bone M89.8X9 Plan: CT scan of the left elbow Patient has significant heterotopic ossificans between the proximal radius and ulna limiting his ability to pronate supinate out of the neutral alignment of his elbow at 9090 We will get a CT scan every refer to an upper extremity specialist to determine whether or not any type of surgical intervention is warranted for this patient as this is not a type of surgery I perform, and not sure how much benefit patient would achieve with the surgery and the likelihood of improved increased functioning This was discussed with patient we will call him after his CAT scan and have him have at least a conversation with an upper extremity specialist as far as long- term outlook for function and pronationsupination he does and is able to manage with the pronation by abducting his shoulder and but the supination does limit him somewhat even with ad duction of his shoulder. Patient also was asking about his low back we did refer him to a design specialist for further evaluation treatment and monitoring of his low back. Again heterotopic ossificans after biceps tendon repair and further complicated with fractures makes him a tough case but will defer to upper extremity specialist for treatment options and outlook discussion Today, in detail, through a thorough evaluation, we discussed possible etiologies of pain and our plans for further diagnostic and therapeutic interventions. We discussed strategies for decreasing pain and improving strength, stability and motion. Patient's questions were answered in detailed. Patient verbalizes understanding and agrees with the treatment plan as discussed. Janessa Moreno DO [facility] History of Present illness Narrative* NICO Fowler - 07/13/2021 9:10 AM EDT Radiology Service Progress Note PATIENT NAME: Yusef Muir DATE OF SERVICE: July 13, 2021 TIME: 9:58 AM PATIENT IDENTITY VERIFICATION COMPLETED USING TWO (2) IDENTIFIERS: Name and Date of confirmedby patient verbally. FALL SCREENING: Has the patient had 2 falls in the last year or 1 fall with injury or currently using an Ambulatory Assistive Device (Walker, Cane, Wheelchair, Crutches, etc.)? No PATIENT GENDER DATA: Male PATIENT RELEVANT IMPLANT DATA REVIEWED: Not Applicable RADIOLOGY DEPARTMENT: General X-ray: Exam(s) Completed: Upper Extremity X- Ray(s): Elbow, left and Wrist, left PERIPHERAL IV DATA: Not applicable SIGNED BY: NICO Fowler July 13, 2021 9:58 AM [facility] NoteHNO ID: [id number] Author: NICO Helms Service: Radiology Author Type: Clinical Field Service Coordinator Type: Progress Notes Filed: 12/04/2020 10:52 AM Note Text: Radiology Service Progress Note PATIENT NAME: Yusef Muir DATE OF SERVICE: December 04, 2020 TIME: 10:52 AM PATIENT IDENTITY VERIFICATION COMPLETED USING TWO (2) IDENTIFIERS: Name and Date of confirmed by patient verbally. FALL SCREENING: Has the patient had 2 falls in the last year or 1 fall with injury or currently using an Ambulatory Assistive Device (Walker, Cane, Wheelchair, Crutches, etc.)? No PATIENT GENDER DATA: Male PATIENT RELEVANT IMPLANT DATA REVIEWED: Not Applicable RADIOLOGY DEPARTMENT: General X-ray: Exam(s) Completed: Chest X-Ray PERIPHERAL IV DATA: Not applicable SIGNED BY: NICO Helms December 04, 2020 10:52 AMBer[facility] [id number] History of Past illness Narrative* Problem Noted Date Resolved Date Obstructive sleep apnea (adult) (pediatric) 09/0611/26/2011 Unspecified sleep apnea 07/19/2011 11/26/19 12 documented as of this encounter (statuses as of 07/13/2021) [facility] of Past illness Narrative* Problem Noted Date Resolved Date Obstructive sleep apnea (adult) (pediatric) 09/0611/26/2011 Unspecified sleep apnea 07/19/2011 11/26/19 12 documented as of this encounter (statuses as of 07/14/2021) [facility] of [facility] illness Narrative* Problem Noted Date Resolved Date Obstructive sleep apnea (adult) (pediatric) 09/0611/26/2011 Unspecified sleep apnea 07/19/2011 11/26/19 12 documented as of this encounter (statuses as of 07/16/2021) [facility] Narrative* Problem Noted Date Resolved Date Obstructive sleep apnea (adult) (pediatric) 09/0611/26/2011 Unspecified sleep apnea 07/19/2011 11/26/19 12 documented as of this encounter (statuses as of 07/25/2021) [facility] Narrative* Problem Noted Date Resolved Date Obstructive sleep apnea (adult) (pediatric) 09/0611/26/2011 Unspecified sleep apnea 07/19/2011 11/26/19 12 documented as of this encounter (statuses as of 07/25/2021) [facility] Narrative* Problem Noted Date Resolved Date Obstructive sleep apnea (adult) (pediatric) 09/0611/26/2011 Unspecified sleep apnea 07/19/2011 11/26/19 12 documented as of this encounter (statuses as of 07/27/2021) [facility] Narrative* Problem Noted Date Resolved Date Obstructive sleep apnea (adult) (pediatric) 09/0611/26/2011 Unspecified sleep apnea 07/19/2011 11/26/19 12 documented as of this encounter (statuses as of 07/29/2021) [facility] Narrative* Problem Noted Date Resolved Date Obstructive sleep apnea (adult) (pediatric) 09/0611/26/2011 Unspecified sleep apnea 07/19/2011 11/26/19 12 documented as of this encounter (statuses as of 08/06/2021) [facility] Narrative* Problem Noted Date Resolved Date Obstructive sleep apnea (adult) (pediatric) 09/0611/26/2011 Unspecified sleep apnea 07/19/2011 11/26/19 12 documented as of this encounter (statuses as of 08/08/2021) [facility] Narrative* Problem Noted Date Resolved Date Obstructive sleep apnea (adult) (pediatric) 09/0611/26/2011 Unspecified sleep apnea 07/19/2011 11/26/19 12 documented as of this encounter (statuses as of 08/14/2021) [facility] Narrative* Problem Noted Date Resolved Date Obstructive sleep apnea (adult) (pediatric) 09/0611/26/2011 Unspecified sleep apnea 07/19/2011 11/26/19 12 documented as of this encounter (statuses as of 08/23/2021) [facility] Narrative* Problem Noted Date Resolved Date Obstructive sleep apnea (adult) (pediatric) 09/0611/26/2011 Unspecified sleep apnea 07/19/2011 11/26/19 12 documented as of this encounter (statuses as of 08/24/2021) [facility] Narrative* Problem Noted Date Resolved Date Obstructive sleep apnea (adult) (pediatric) 09/0611/26/2011 Unspecified sleep apnea 07/19/2011 11/26/19 12 documented as of this encounter (statuses as of 08/27/2021) [facility] Narrative* Problem Noted Date Resolved Date Obstructive sleep apnea (adult) (pediatric) 09/0611/26/2011 Unspecified sleep apnea 07/19/2011 11/26/19 12 documented as of this encounter (statuses as of 08/28/2021) [facility] Narrative* Problem Noted Date Resolved Date Obstructive sleep apnea (adult) (pediatric) 09/0611/26/2011 Unspecified sleep apnea 07/19/2011 11/26/19 12 documented as of this encounter (statuses as of 08/28/2021) [facility] Narrative* Problem Noted Date Resolved Date Obstructive sleep apnea (adult) (pediatric) 09/0611/26/2011 Unspecified sleep apnea 07/19/2011 11/26/19 12 documented as of this encounter (statuses as of 08/30/2021) [facility] Narrative* Problem Noted Date Diagnosed Date Resolved Date Obstructive sleep apnea (adult) (pediatric) 10/03/2011 11/26/2011 Unspecified sleep apnea 07/19/201111/06 documented as of this encounter (statuses as of 02/27/2023) [facility] Narrative* Problem Noted Date Diagnosed Date Resolved Date Obstructive sleep apnea (adult) (pediatric) 10/03/2011 11/26/2011 Unspecified sleep apnea 07/19/201111/06 documented as of this encounter (statuses as of 06/09/2023) [facility] Narrative* Problem Noted Date Diagnosed Date Resolved Date Obstructive sleep apnea (adult) (pediatric) 10/03/2011 11/26/2011 Unspecified sleep apnea 07/19/201111/06 documented as of this encounter (statuses as of 06/12/2023) [facility] No data available for this section [facility] Evaluation + Plan note Future Appointments Appointment Date:05/20/2023 09:30:00 AM Scheduled Provider: Location:[facility] Appointment Type:CV IOS PROGRAMMER Diagnostic Tests Pending * Urinalysis 05/15/23 * Prothrombin Time - Panel 05/15/23 * APTT Panel 05/15/23 [facility] Evaluation + Plan note Future Appointments Appointment Date:06/09/2023 01:00:00 PM Scheduled Provider:HUSAM CALLES Location:[facility] Appointment Type:CV OV [facility] Evaluation + Plan note Future Appointments Appointment Date:09/03/2023 09:15:00 AM Scheduled Provider: Location:[facility] Appointment Type:CV OV [facility] Evaluation + Plan note Future Appointments Appointment Date:07/09/2023 11:45:00 AM Scheduled Provider: Location:[facility] Appointment Type:CV OV [facility] evaluation + Plan note Future Appointments Appointment Date:09/04/2023 10:30:00 AM Scheduled Provider:HUSAM CALLES Location:[facility] Appointment Type:CV OV Future Scheduled Tests Laboratory* Basic Metabolic Panel 07/09/23 * N-Terminal proBNP 07/09/23 [facility] evaluation + Plan note Future Appointments Appointment Date:10/28/2023 09:00:00 AM Scheduled Provider: Location:[facility] Appointment Type:MEDS - Diabetic Individual Visit Appointment Date:12/15/2023 07:00:00 AM Scheduled Provider:CARLEE MCGREGOR Location:[facility] Appointment Type:PC OV Appointment Date:01/12/2024 09:00:00 AM Scheduled Provider: Location:[facility] Appointment Type:Echo - Echocardiogram Adult Future Scheduled Tests Laboratory* Basic Metabolic Panel 07/09/23 * A1C Hemoglobin 12/09/23 * Lipid Profile 12/09/23 * Albumin/Creatinine Ratio, Random Urine 12/09/23 * Complete Metabolic Panel 12/09/23 * N-Terminal proBNP 07/09/23 [facility] evaluation + Plan note Future Appointments Appointment Date:11/04/2023 01:30:00 PM Scheduled Provider: Location:[facility] Appointment Type:MEDS - Diabetic Individual Visit Appointment Date:12/15/2023 07:00:00 AM Scheduled Provider:CARLEE MCGREGOR Location:[facility] Appointment Type:PC OV Appointment Date:01/12/2024 09:00:00 AM Scheduled Provider: Location:[facility] Appointment Type:Echo - Echocardiogram Adult Diagnostic Tests Pending * Lactic Acid 10/28/23 * Urinalysis w/ C&S if Indicated 10/28/23 * Blood Culture (bacterial) 10/28/23 * Blood Culture (bacterial) 10/28/23 Future Scheduled Tests Laboratory* Basic Metabolic Panel 07/09/23 * A1C Hemoglobin 12/09/23 * Lipid Profile 12/09/23 * Albumin/Creatinine Ratio, Random Urine 12/09/23 * Complete Metabolic Panel 12/09/23 * N-Terminal proBNP 07/09/23 [facility] Evaluation + Plan note Future Appointments Appointment Date:11/24/2023 09:00:00 AM Scheduled Provider: Location:[facility] Appointment Type:MEDS - Diabetic Individual Visit Appointment Date:12/15/2023 07:00:00 AM Scheduled Provider:CARLEE MCGREGOR Location:[facility] Appointment Type: OV Appointment Date:01/12/2024 09:00:00 AM Scheduled Provider: Location:[facility] Appointment Type:Echo - Echocardiogram Adult Future Scheduled Tests Laboratory* Basic Metabolic Panel 07/09/23 * Urinalysis w/ C&S if Indicated 11/03/23 * Blood Culture (bacterial) 11/03/23 * Complete Blood Count 11/03/23 * Complete Metabolic Panel 11/03/23 * N-Terminal proBNP 07/09/23 [facility] Evaluation + Plan note Future Appointments Appointment Date:02/12/2024 09:30:00 AM Scheduled Provider: Location:[facility] Appointment Type:MEDS - Diabetic Individual Visit Appointment Date:02/26/2024 09:00:00 AM Scheduled Provider:CARLEE MCGREGOR Location:[facility] Appointment Type:PC OV Appointment Date:05/27/2024 09:00:00 AM Scheduled Provider:CARLEE MCGREGOR Location:[facility] Appointment Type: OV Future Scheduled Tests Laboratory* Basic Metabolic Panel 07/09/23 * Ammonia Level 05/29/24 * Urinalysis w/ C&S if Indicated 11/03/23 * Blood Culture (bacterial) 11/03/23 * A1C Hemoglobin 05/29/24 * Complete Blood Count 11/03/23 * Lipid Profile 05/29/24 * Complete Metabolic Panel 11/03/23 * Complete Metabolic Panel 05/29/24 * N-Terminal proBNP 07/09/23 [facility] Evaluation + Plan note Future Appointments Appointment Date:05/13/2024 09:00:00 AM Scheduled Provider:CARLEE MCGREGOR Location:[facility] Appointment Type:PC OV Appointment Date:05/14/2024 09:30:00 AM Scheduled Provider: Location:[facility] Appointment Type:MEDS - Diabetic Individual Visit Future Scheduled Tests Laboratory* Basic Metabolic Panel 07/09/23 * Urinalysis w/ C&S if Indicated 11/03/23 * Blood Culture (bacterial) 11/03/23 * Complete Blood Count 11/03/23 * Complete Metabolic Panel 11/03/23 * N-Terminal proBNP 07/09/23 [facility] Evaluation + Plan note Future Appointments Appointment Date:05/13/2024 09:00:00 AM Scheduled Provider:CARLEE MCGREGOR Location:[facility] Appointment Type: OV Appointment Date:05/14/2024 09:30:00 AM Scheduled Provider: Location:[facility] Appointment Type:MEDS - Diabetic Individual Visit Diagnostic Tests Pending * Tissue Transglutaminase Ab (IGA) 05/11/24 * Mitochondrial Antibody 05/11/24 * Gliadin Antibody 05/11/24 * MARTINE by IFA Screen 05/11/24 * P-6-[id number] 05/11/24 * Cytomegalovirus Antibody 05/11/24 * Ernestine Mcclure Virus Antibody Titer 05/11/24 * Liver-Kidney Microsomal Ab 05/11/24 * Hepatitis A Antibody IgG 05/11/24 * Vitamin A, Serum 05/11/24 * Smooth Muscle Antibody Screen 05/11/24 * Hep B Core Ab, Tot 05/11/24 Future Scheduled Tests Laboratory* Basic Metabolic Panel 07/09/23 * Urinalysis w/ C&S if Indicated 11/03/23 * Blood Culture (bacterial) 11/03/23 * Complete Blood Count 11/03/23 * Complete Metabolic Panel 11/03/23 * N-Terminal proBNP 07/09/23 [facility] Evaluation + Plan note Future Appointments Appointment Date:05/14/2024 09:30:00 AM Scheduled Provider: Location:[facility] Appointment Type:MEDS - Diabetic Individual Visit Appointment Date:05/18/2024 08:00:00 AM Scheduled Provider: Location:[facility] Appointment Type:US Abdomen/Abdomen Doppler Appointment Date:08/12/2024 08:30:00 AM Scheduled Provider:CARLEE MCGREGOR Location:[facility] Appointment Type:PC OV Appointment Date:11/08/2024 08:30:00 AM Scheduled Provider:CARLEE MCGREGOR Location:[facility] Appointment Type:PC OV Future Scheduled Tests Laboratory* Basic Metabolic Panel 07/09/23 * Prostate Specific Antigen 11/10/24 * Urinalysis w/ C&S if Indicated 11/03/23 * Blood Culture (bacterial) 11/03/23 * A1C Hemoglobin 11/10/24 * Complete Blood Count 11/03/23 * Complete Blood Count 11/10/24 * Lipid Profile 11/10/24 * Albumin/Creatinine Ratio, Random Urine 11/10/24 * Complete Metabolic Panel 11/03/23 * Complete Metabolic Panel 11/10/24 * N-Terminal proBNP 07/09/23 Radiology* US Abdomen/Abd Doppler 05/18/24 [facility] Evaluation + Plan note Future Appointments Appointment Date:08/12/2024 08:30:00 AM Scheduled Provider:CARLEE MCGREGOR Location:[facility] Appointment Type:PC OV Appointment Date:08/13/2024 09:30:00 AM Scheduled Provider: Location:[facility] Appointment Type:MEDS - Diabetic Individual Visit Appointment Date:11/08/2024 08:30:00 AM Scheduled Provider:CARLEE MCGREGOR Location:[facility] Appointment Type:PC OV Future Scheduled Tests Laboratory* Basic Metabolic Panel 07/09/23 * Prostate Specific Antigen 11/10/24 * Urinalysis w/ C&S if Indicated 11/03/23 * Blood Culture (bacterial) 11/03/23 * A1C Hemoglobin 11/10/24 * Complete Blood Count 11/03/23 * Complete Blood Count 11/10/24 * Lipid Profile 11/10/24 * Albumin/Creatinine Ratio, Random Urine 11/10/24 * Complete Metabolic Panel 11/03/23 * Complete Metabolic Panel 11/10/24 * N-Terminal proBNP 07/09/23 [facility] Evaluation + Plan note Future Appointments Appointment Date:08/20/2024 10:00:00 AM Scheduled Provider: Location:[facility] Appointment Type:[facility] OV Review Testing Appointment Date:11/08/2024 08:30:00 AM Scheduled Provider:CARLEE MCGREGOR Location:[facility] Appointment Type:PC Wellness Annual Appointment Date:11/12/2024 09:30:00 AM Scheduled Provider: Location:[facility] Appointment Type:MEDS - Diabetic Individual Visit Future Scheduled Tests Laboratory* Prostate Specific Antigen 11/10/24 * Urinalysis w/ C&S if Indicated 11/03/23 * Blood Culture (bacterial) 11/03/23 * A1C Hemoglobin 11/10/24 * Complete Blood Count 11/03/23 * Complete Blood Count 11/10/24 * Lipid Profile 11/10/24 * Albumin/Creatinine Ratio, Random Urine 11/10/24 * Complete Metabolic Panel 11/03/23 * Complete Metabolic Panel 11/10/24 [facility] [employer] + Plan note Future Appointments Appointment Date:09/06/2024 04:00:00 PM Scheduled Provider:ABRAHAM BRIAN MD Location:[facility] Appointment Type:[facility] OV Emergency Appointment Date:11/08/2024 08:30:00 AM Scheduled Provider:CARLEE MCGREGOR Location:[facility] Appointment Type:PC Wellness Annual Appointment Date:11/12/2024 09:30:00 AM Scheduled Provider: Location:[facility] Appointment Type:MEDS - Diabetic Individual Visit Future Scheduled Tests Laboratory* Prostate Specific Antigen 11/10/24 * Urinalysis w/ C&S if Indicated 11/03/23 * Blood Culture (bacterial) 11/03/23 * A1C Hemoglobin 11/10/24 * Complete Blood Count 11/03/23 * Complete Blood Count 11/10/24 * Lipid Profile 11/10/24 * Albumin/Creatinine Ratio, Random Urine 11/10/24 * Complete Metabolic Panel 11/03/23 * Complete Metabolic Panel 11/10/24 [facility] Evaluation + Plan note Future Appointments Appointment Date:09/24/2024 01:15:00 PM Scheduled Provider: Location:[facility] Pain Management Appointment Type:PM Inj Spine L/S With Imaging Appointment Date:10/06/2024 09:00:00 AM Scheduled Provider:ARCHIE CORMIER Location:[facility] Appointment Type:PM OV Appointment Date:11/08/2024 08:30:00 AM Scheduled Provider:CARLEE MCGREGOR Location:[facility] Appointment Type:PC Wellness Annual Appointment Date:11/12/2024 09:30:00 AM Scheduled Provider: Location:[facility] Appointment Type:MEDS - Diabetic Individual Visit Appointment Date:12/13/2024 09:00:00 AM Scheduled Provider: Location:[facility] Appointment Type:Echo - Echocardiogram Adult Appointment Date:12/17/2024 09:15:00 AM Scheduled Provider:HANSEL HAWKINS Location:[facility] Appointment Type:CV OV Future Scheduled Tests Laboratory* Prostate Specific Antigen 11/10/24 * Urinalysis w/ C&S if Indicated 11/03/23 * Blood Culture (bacterial) 11/03/23 * A1C Hemoglobin 11/10/24 * Complete Blood Count 11/03/23 * Complete Blood Count 11/10/24 * Lipid Profile 11/10/24 * Albumin/Creatinine Ratio, Random Urine 11/10/24 * Complete Metabolic Panel 11/03/23 * Complete Metabolic Panel 11/10/24 [facility] Evaluation + Plan note Future Appointments Appointment Date:10/06/2024 09:00:00 AM Scheduled Provider:ARCHIE CORMIER Location:[facility] Appointment Type:PM OV Appointment Date:11/08/2024 08:30:00 AM Scheduled Provider:CARLEE MCGREGOR Location:[facility] Appointment Type:PC Wellness Annual Appointment Date:11/12/2024 09:30:00 AM Scheduled Provider: Location:[facility] Appointment Type:MEDS - Diabetic Individual Visit Appointment Date:12/13/2024 09:00:00 AM Scheduled Provider: Location:[facility] Appointment Type:Echo - Echocardiogram Adult Appointment Date:12/17/2024 09:15:00 AM Scheduled Provider:HANSEL HAWKINS Location:[facility] Appointment Type:CV [facility] Scheduled Tests Laboratory* Prostate Specific Antigen 11/10/24 * Urinalysis w/ C&S if Indicated 11/03/23 * Blood Culture (bacterial) 11/03/23 * A1C Hemoglobin 11/10/24 * Complete Blood Count 11/03/23 * Complete Blood Count 11/10/24 * Lipid Profile 11/10/24 * Albumin/Creatinine Ratio, Random Urine 11/10/24 * Complete Metabolic Panel 11/03/23 * Complete Metabolic Panel 11/10/24 [facility] Evaluation note* Diagnosis Chronic bilateral low back pain, unspecified whether sciatica present- Primary Disorder of bone Disorder of bone and cartilage, unspecified Heterotopic ossification of bone Other disorders of bone and cartilage [facility] Pain Generalized [facility] Diagnosis Spasm of lumbar paraspinous muscle- Primary Other symptoms referable to back Chronic bilateral low back pain, unspecified whether sciatica present Myofascial pain syndrome of lumbar spine [facility]* Diagnosis Chronic bilateral low back pain, unspecified whether sciatica present [facility]* Diagnosis Disorder of bone Disorder of bone and cartilage, unspecified [facility]* Diagnosis Chronic bilateral low back pain, unspecified whether sciatica present [facility]* Diagnosis Chronic midline low back pain without sciatica- Primary [facility]* Diagnosis Chronic bilateral low back pain, unspecified whether sciatica present [facility]* Diagnosis Chronic midline low back pain without sciatica- Primary [facility] noteNo assessment information availableWvumedicine [facility] Work Phone: Evaluation note* Diagnosis Chronic bilateral low back pain, unspecified whether sciatica present- Primary [facility] Diagnosis Synostosis- Primary Other congenital osteodystrophy documented in this encounter [facility] note* Diagnosis Chronic bilateral low back pain, unspecified whether sciatica present- Primary documented in this encounter [facility] note* Diagnosis Left foot pain- Primary Pain in soft tissues of limb documented in this encounter [facility] note* Diagnosis Charcot joint of left foot- Primary documented in this encounter [facility] note* Diagnosis Charcot joint of left foot- Primary documented in this encounter [facility] note* Diagnosis Left leg cellulitis- Primary Charcot joint of left foot Type 2 diabetes mellitus with diabetic neuropathy, unspecified whether long chain quiller tender insulin use (HCC) documented in this encounter [facility] note* Diagnosis Left foot pain- Primary Pain in soft tissues of limb [facility] Additional Instructions Take antibiotic as prescribed sent to your pharmacy. Follow-up with your doctor, return if any worsening symptoms.[facility] Work Phone: Hospital Discharge instructions Additional Instructions Follow-up with podiatry as previously referred.[facility] Work Phone: Hospital Discharge instructions No data available for this section [facility] Progress note No data available for this section [facility] Reason for referral (narrative)* Diagnostic Procedure Only (Routine) - Closed Specialty Diagnoses / Procedures Referred By Contac t Referred To Contact XR IMAGING Diagnoses Pain Procedures XR WRIST GENERAL 3V PA/LAT/OBL LEFT RADEX WRIST COMPLETE MINIMUM 3 VIEWS Janessa Moreno DO [address] [phone] Xr Imaging Referral ID Status Reason Start Date Expiration Date V isits Requested Visits Authorized [id number] Closed Auto-Generate d Referral 06/26/2021 07/26/2022 1 1 * Diagnostic Procedure Only (Routine) - Closed Specialty Diagnoses / Procedures Referred By Contac t Referred To Contact XR IMAGING Diagnoses Pain Procedures XR ELBOW SPECIAL VIEWS AP/LAT/OTHER LEFT RADEX ELBOW COMPLETE MINIMUM 3 VIEWS Janessa Moreno DO [address] [place] [address] Xr Imaging Referral ID Status Reason Start Date Expiration Date V isits Requested Visits Authorized [id number] Closed Auto-Generate d Referral 06/26/2021 07/26/2022 1 1 [facility] Discharge Instructions * Instructions* Louisa Cristobal, - 12/16/2017 Patient should follow-up with Dr. Persaud tomorrow. If he is unable to get an appointment I can recheck him at 7 o'clock in the evening. Clinically I do not believe he has osteomyelitis. Believe this isprobably from his recent fracture. Because an abundance precaution we should follow-up with his orthopedic doctor. Please return anytime. Use splint and sling. Take the arm out of the sling once an hour do range of motion exercises (10 reps every hour demonstrated.) * Attachments The following attachments cannot be sent through Care Everywhere. * Cellulitis (Pakistani) documented in this encounter* Attachments The following attachments cannot be sent through Care Everywhere. * Abscess: Skin (Pakistani) documented in this encounter* Instructions* Louisa Cristobal, - 01/30/2019 Rest. Ice 15 minutes every 4-6 hours. Use splint as needed. Return if any problems or concerns. documented in this encounter* Instructions* Louisa Cristobal, - 12/17/2018 Your leaving against medical advice. Please return anytime Follow-up with your doctors tomorrow. Wally admitted to the hospital. Return if any concerns. Continue taking your medicine * Attachments The following attachments cannot be sent through Care Everywhere. * Cellulitis (Pakistani) * Diabetes: Type 2: General Info (Pakistani) * Osteomyelitis (Pakistani) documented in this encounter Assessments Diagnosis Cellulitis of left upper extremity- Primary Cellulitis and abscess of upper arm and forearm Diagnosis Abscess- Primary Cellulitis and abscess of unspecified site Diagnosis Pain of left forearm- Primary Pain in limb Diagnosis Cellulitis of left upper extremity- Primary Cellulitis and abscess of upper arm and forearm Other acute osteomyelitis, unspecified site (HCC) Diabetes mellitus due to underlying condition with hyperosmolarity without coma, without long-term current use of insulin (HCC) Summary Purpose Family History Relationship Condition Age at Onset Recorded Date/T kt Unknown Family History?Cancer Unknown July 24, 2020 3:53pm Family History?Diabetes Unknown Apri l 2020 3:53pm Advance Directives Documents on File 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 Advance Directive(s) 04/02/2019 5:58 AM Advance Directive(s) 12/19/2018 5:05 PM Advance Directive(s) 12/05/2018 2:52 PM Advance Directive(s) 10/20/2018 7:06 AM Advance Directive(s) 07/18/2018 6:55 AM Advance Directive(s) 05/18/2018 4:59 PM Advance Directive(s) 05/09/2017 11:26 PM Advance Directive(s) 03/18/2017 1:11 AM Advance Directive(s) 11/14/2016 7:34 AM Advance Directive(s) 10/27/2016 12:56 AM Advance Directive(s) 10/13/2016 10:36 PM Documents on File 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 Advance Directive(s) 04/02/2019 5:58 AM Advance Directive(s) 12/19/2018 5:05 PM Advance Directive(s) 12/05/2018 2:52 PM Advance Directive(s) 10/20/2018 7:06 AM Advance Directive(s) 07/18/2018 6:55 AM Advance Directive(s) 05/18/2018 4:59 PM Advance Directive(s) 05/09/2017 11:26 PM Advance Directive(s) 03/18/2017 1:11 AM Advance Directive(s) 11/14/2016 7:34 AM Advance Directive(s) 10/27/2016 12:56 AM Advance Directive(s) 10/13/2016 10:36 PM Advance Directive Response Recorded Date/ Time Living Will No August 27, 2021 9 :46am 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 No August 27, 2021 9:46am Advance Directive Response Recorded Date/ Time Living Will No June 29, 2023 5:30am 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 No June 28 5:30am Reason for Referral Specialty Diagnoses / Procedures Referred By Contac t Referred To Contact [facility] [place] Diagnoses Chronic bilateral low back pain, unspecified whether sciatica present Procedures CONSULT TO [facility] OFFICE/OUTPATIENT NEW HIGH MDM 60-74 MINUTES Janessa Moreno DO [address] [place] [address] Referral ID Status Reason Start Date Expiration Date Visits Requested Visits Authorized [id number] Authorized PCP Requested Referral 07/13/2021 07/13/2022 1 1 Specialty Diagnoses / Procedures Referred By Contac t Referred To Contact CT IMAGING Diagnoses Disorder of bone Procedures CT ELBOW WO IVCON LT CT UPPER EXTREMITY W/O CONTRAST MATERIAL Janessa Moreno DO [address] [place] [address] Ct Imaging Referral ID Status Reason Start Date Expiration Date Visits Requested Visits Authorized [id number] Additional Clinical Info Needed Auto-Generat ed Referral 07/13/2021 08/12/2022 1 1 Specialty Diagnoses / Procedures Referred By Contac t Referred To Contact [facility] Diagnoses Chronic bilateral low back pain, unspecified whether sciatica present Procedures CONSULT TO PHYSICAL THERAPY PHYSICAL THERAPY EVALUATION HIGH COMPLEX 45 MINS Mary Mcnulty MD [address] [facility] [place] [address] [facility] [address] [address] Referral ID Status Reason Start Date Expiration Date Visits Requested Visits Authorized [id number] Authorized Auto-Generat ed Referral 07/25/2021 04/06/2022 1 1 Specialty Diagnoses / Procedures Referred By Contac t Referred To Contact [facility] Diagnoses Chronic midline low back pain without sciatica Procedures PT REHAB FOLLOW UP ORDER THERAPEUTIC EXERCISES RE, EA 15 MIN. Daniela Zendejas, PT [address] [place] [address] [facility] [address] [address] Referral ID Status Reason Start Date Expiration Date Visits Requested Visits Authorized [id number] Pending Review PCP Requested Referral Auto-Generate d Referral 07/27/2021 10/25/2021 1 1 Referral ID Status Reason Start Date Expiration Date V isits Requested Visits Authorized [id number] Closed Auto-Generate d Referral 07/13/2021 09/11/2021 1 1 Chief Complaint and Reason for Visit Chief Complaint BITE Chief Complaint lower extrem Additional Source Comments (unrecognized sect ion and content) No Status Records FoundNo Status Records FoundNo Status Records FoundNo Status Records FoundNo Status Records FoundNo Status Records FoundNo Status Records FoundNo Status Records FoundNo Status Records FoundNo Status Records FoundNo Status Records Found INFORMATION SOURCE (unrecogn ized section and content) DATE CREATED AUTHOR 01/10/2019 [facility] DATE CREATED AUTHOR AUTHOR'S ORGANIZ ATION 01/11/[address] [facility] DATE CREATED AUTHOR AUTHOR'S ORGANIZ ATION 03/17/[address] [facility] DATE CREATED AUTHOR AUTHOR'S ORGANIZ ATION 05/07/2021 [facility] DATE CREATED AUTHOR AUTHOR'S ORGANIZ ATION 07/31/2021 [facility] DATE CREATED AUTHOR AUTHOR'S ORGANIZ ATION 08/31/2021 [facility] DATE CREATED AUTHOR AUTHOR'S ORGANIZ ATION 04/06/2023 [facility] DATE CREATED AUTHOR AUTHOR'S ORGANIZ ATION 11/25/2023 [facility] DATE CREATED AUTHOR AUTHOR'S ORGANIZ ATION 04/20/2024 [facility] DATE CREATED AUTHOR AUTHOR'S ORGANIZ ATION 10/05/2024 [facility] DATE CREATED AUTHOR AUTHOR'S ORGANIZ ATION 10/17/2024 [facility] Reason for Visit (unrecogniz ed section and content) Reason Comments Follow-up Cast change Reason Comments Follow-up FX Left foot, cast c hange Reason Comments New Patient Left foot DOI 1 gelacio h ago Specialty Diagnoses / Procedures Referred By Shawn washburn Referred To Contact Orthopedic Surgery Diagnoses Left foot ligament tear Procedures NE OFFICE/OUTPATIENT NEW MODERATE MDM 45 MINUTES Abraham Brian MD [address] [address] Phone: tel: fax: Ricardo Smith MD [address] [place] [id number] Phone: tel: fax: Referral ID Status Reason Start Date Expiration Date Visits Re quested Visits Authorized [id number] Closed 09/24/2024 09/24/2025 1 1 Reason Comments High Blood Sugar Reason Comments Information Reason Comments Swelling Reason Comments Fall Reason Comments Cough Reason Comments PT Discharge Specialty Diagnoses / Procedures Referred By Contac t Referred To Contact [facility] Diagnoses Chronic bilateral low back pain, unspecified whether sciatica present Procedures CONSULT TO PHYSICAL THERAPY PHYSICAL THERAPY EVALUATION HIGH COMPLEX 45 MINS Mary Mcnulty MD [address] [facility] [address] [facility] [address] [address] Referral ID Status Reason Start Date Expiration Date V isits Requested Visits Authorized [id number] Closed Auto-Generate d Referral 07/25/2021 04/06/2022 1 1 Reason Comments Follow Up Pain Reason Comments Patient Question Reason Comments Physical Therapy Specialty Diagnoses / Procedures Referred By Contac t Referred To Contact [facility] Diagnoses Chronic bilateral low back pain, unspecified whether sciatica present Procedures CONSULT TO PHYSICAL THERAPY PHYSICAL THERAPY EVALUATION HIGH COMPLEX 45 MINS Mary Mcnulty MD [address] [facility] [place] [address] [address] Referral ID Status Reason Start Date Expiration Date V isits Requested Visits Authorized [id number] Closed Auto-Generate d Referral 07/25/2021 04/06/2022 1 1 Specialty Diagnoses / Procedures Referred By Contac t Referred To Contact CT IMAGING Diagnoses Disorder of bone Procedures CT ELBOW WO IVCON LT CT UPPER EXTREMITY W/O CONTRAST MATERIAL Janessa Moreno DO [address] [place] [address] Ct Imaging Referral ID Status Reason Start Date Expiration Date V isits Requested Visits Authorized [id number] Closed Auto-Generate d Referral 07/13/2021 09/11/2021 1 1 Reason Comments PT Eval Specialty Diagnoses / Procedures Referred By Contac t Referred To Contact [facility] Diagnoses Chronic bilateral low back pain, unspecified whether sciatica present Procedures CONSULT TO PHYSICAL THERAPY PHYSICAL THERAPY EVALUATION HIGH COMPLEX 45 MINS Mary Mcnulty MD [address] [facility] [place] [address] [facility] [place] [address] [place] [address] Referral ID Status Reason Start Date Expiration Date V isits Requested Visits Authorized [id number] Closed Auto-Generate d Referral 07/25/2021 04/06/2022 1 1 Reason Comments Low Back Pain Specialty Diagnoses / Procedures Referred By Contac t Referred To Contact [facility] Diagnoses Chronic bilateral low back pain, unspecified whether sciatica present Procedures [facility] TO [facility] OFFICE/OUTPATIENT [facility] HIGH MDM 60-74 MINUTES Janessa Moreno DO [address] [place] [address] Referral ID Status Reason Start Date Expiration Date V isits Requested Visits Authorized [id number] Closed PCP Requested Referral 07/13/2021 07/13/2022 1 1 Reason Comments Pre-Visit Notification Reason Comments LMTCB Reason Comments Wrist/forearm Injury Elbow Injury Specialty Diagnoses / Procedures Referred By Contac t Referred To Contact XR IMAGING Diagnoses Pain Procedures XR ELBOW SPECIAL VIEWS AP/LAT/OTHER LEFT RADEX ELBOW COMPLETE MINIMUM 3 VIEWS Janessa Moreno DO [address] [place] [address] Xr Imaging Referral ID Status Reason Start Date Expiration Date V isits Requested Visits Authorized [id number] Closed Auto-Generate d Referral 06/26/2021 07/26/2022 1 1 Reason Comments New Pain Swelling Reason Comments Wound Check Left arm Reason Comments Arm Pain Reason Comments Abscess Source Comments (unrecognize d section and content) In the event this informatio n is protected by the Federal Confidentiality of Alcohol and Drug Abuse Patient Records regulations: The Federal rules restrict any use of the information to criminally investigate or prosecute any alcohol or drug abuse patient.[facility] the event this information is protected by the Federal Confidentiality of Alcohol and Drug Abuse Patient Records regulations: The Federal rules restrict any use of the information to criminally investigate or prosecute any alcohol or drug abuse patient.[facility] the event this information is protected by the Federal Confidentiality of Alcohol and Drug Abuse Patient Records regulations: The Federal rules restrict any use of the information to criminally investigate or prosecute any alcohol or drug abuse patient.[facility] the event this information is protected by the Federal Confidentiality of Alcohol and Drug Abuse Patient Records regulations: The Federal rules restrict any use of the information to criminally investigate or prosecute any alcohol or drug abuse patient.[facility] the event this information is protected by the Federal Confidentiality of Alcohol and Drug Abuse Patient Records regulations: The Federal rules restrict any use of the information to criminally investigate or prosecute any alcohol or drug abuse patient.[facility] the event this information is protected by the Federal Confidentiality of Alcohol and Drug Abuse Patient Records regulations: The Federal rules restrict any use of the information to criminally investigate or prosecute any alcohol or drug abuse patient.[facility] Hospital[facility] the event this information is protected by the Federal Confidentiality of Alcohol and Drug Abuse Patient Records regulations: The Federal rules restrict any use of the information to criminally investigate or prosecute any alcohol or drug abuse patient.[facility] the event this information is protected by the Federal Confidentiality of Alcohol and Drug Abuse Patient Records regulations: The Federal rules restrict any use of the information to criminally investigate or prosecute any alcohol or drug abuse patient.[facility] Hospital[facility] the event this information is protected by the Federal Confidentiality of Alcohol and Drug Abuse Patient Records regulations: The Federal rules restrict any use of the information to criminally investigate or prosecute any alcohol or drug abuse patient.[facility] Hospital[facility] the event this information is protected by the Federal Confidentiality of Alcohol and Drug Abuse Patient Records regulations: The Federal rules restrict any use of the information to criminally investigate or prosecute any alcohol or drug abuse patient.[facility] Hospital[facility] the event this information is protected by the Federal Confidentiality of Alcohol and Drug Abuse Patient Records regulations: The Federal rules restrict any use of the information to criminally investigate or prosecute any alcohol or drug abuse patient.[facility] Hospital[facility] the event this information is protected by the Federal Confidentiality of Alcohol and Drug Abuse Patient Records regulations: The Federal rules restrict any use of the information to criminally investigate or prosecute any alcohol or drug abuse patient.[facility] Hospital[facility] the event this information is protected by the Federal Confidentiality of Alcohol and Drug Abuse Patient Records regulations: The Federal rules restrict any use of the information to criminally investigate or prosecute any alcohol or drug abuse patient.[facility] Hospital[facility] the event this information is protected by the Federal Confidentiality of Alcohol and Drug Abuse Patient Records regulations: The Federal rules restrict any use of the information to criminally investigate or prosecute any alcohol or drug abuse patient.[facility] HospitalIn the event this information is protected by the Federal Confidentiality of Alcohol and Drug Abuse Patient Records regulations: The Federal rules restrict any use of the information to criminally investigate or prosecute any alcohol or drug abuse patient.[facility] HospitalIn the event this information is protected by the Federal Confidentiality of Alcohol and Drug Abuse Patient Records regulations: The Federal rules restrict any use of the information to criminally investigate or prosecute any alcohol or drug abuse patient.[facility] HospitalIn the event this information is protected by the Federal Confidentiality of Alcohol and Drug Abuse Patient Records regulations: The Federal rules restrict any use of the information to criminally investigate or prosecute any alcohol or drug abuse patient.[facility] HospitalIn the event this information is protected by the Federal Confidentiality of Alcohol and Drug Abuse Patient Records regulations: The Federal rules restrict any use of the information to criminally investigate or prosecute any alcohol or drug abuse patient.[facility] HospitalIn the event this information is protected by the Federal Confidentiality of Alcohol and Drug Abuse Patient Records regulations: The Federal rules restrict any use of the information to criminally investigate or prosecute any alcohol or drug abuse patient.[facility] HospitalIn the event this information is protected by the Federal Confidentiality of Alcohol and Drug Abuse Patient Records regulations: The Federal rules restrict any use of the information to criminally investigate or prosecute any alcohol or drug abuse patient.[facility] HospitalIn the event this information is protected by the Federal Confidentiality of Alcohol and Drug Abuse Patient Records regulations: The Federal rules restrict any use of the information to criminally investigate or prosecute any alcohol or drug abuse patient.[facility] HospitalIn the event this information is protected by the Federal Confidentiality of Alcohol and Drug Abuse Patient Records regulations: The Federal rules restrict any use of the information to criminally investigate or prosecute any alcohol or drug abuse patient.[facility] Care Teams (unrecognized sec tion and content) [employer] Relationship Specialty Start Date End Date Guadalupe Ruggiero MD PCP - General Internal Medicine 07/17/11 [employer] Relationship Specialty Start Date End Date Guadalupe Ruggiero MD PCP - General Internal Medicine 07/17/11 [employer] Relationship Specialty Start Date End Date Guadalupe Ruggiero MD PCP - General Internal Medicine 07/17/11 [employer] Relationship Specialty Start Date End Date Guadalupe Ruggiero MD PCP - General Internal Medicine 07/17/11 [employer] Relationship Specialty Start Date End Date Guadalupe Ruggiero MD PCP - General Internal Medicine 07/17/11 [employer] Relationship Specialty Start Date End Date Guadalupe Ruggiero MD PCP - General Internal Medicine 07/17/11 [employer] Relationship Specialty Start Date End Date Guadalupe Ruggiero MD PCP - General Internal Medicine 07/17/11 [employer] Relationship Specialty Start Date End Date Guadalupe Ruggiero MD PCP - General Internal Medicine 07/17/11 [employer] Relationship Specialty Start Date End Date Guadalupe Ruggiero MD PCP - General Internal Medicine 07/17/11 [employer] Relationship Specialty Start Date End Date Guadalupe Ruggiero MD PCP - General Internal Medicine 07/17/11 [employer] Relationship Specialty Start Date End Date Guadalupe Ruggiero MD PCP - General Internal Medicine 07/17/11 [employer] Relationship Specialty Start Date End Date Guadalupe Ruggiero MD PCP - General Internal Medicine 07/17/11 [employer] Relationship Specialty Start Date End Date Guadalupe Ruggiero MD PCP - General Internal Medicine 07/17/11 [employer] Relationship Specialty Start Date End Date Guadalupe Ruggiero MD PCP - General Internal Medicine 07/17/11 [employer] Relationship Specialty Start Date End Date Guadalupe Ruggiero MD PCP - General Internal Medicine 07/17/11 [employer] Relationship Specialty Start Date End Date Guadalupe Ruggiero MD PCP - General Internal Medicine 07/17/11 Team Status: Active Member Role Status Dates No Primary Care Physician Family Provider Active GUADALUPE RUGGIERO MD Primary Care Provider Active Team Status: Inactive Member Role Status Dates Dr. Radha Jimenez MD Emergency Provider Active GUADALUPE RUGGIERO MD Primary Care Provider Active [employer] Relationship Specialty Start Date End Date Guadalupe Ruggiero MD PCP - General Internal Medicine 07/17/11 [employer] Relationship Specialty Start Date End Date Guadalupe Ruggiero MD PCP - General Internal Medicine 07/17/11 [employer] Relationship Specialty Start Date End Date Guadalupe Ruggiero MD [address] [place] [id number] PCP - General 08/09/15 [employer] Relationship Specialty Start Date End Date Carlee Mcgregor APRN - CNP [address] [place] [address] PCP - General 09/29/24 [employer] Relationship Specialty Start Date End Date Carlee Mcgregor APRN - CNP [address] [place] [address] PCP - General 09/29/24 [employer] Relationship Specialty Start Date End Date Carlee Mcgregor APRN - CNP [address] [place] [address] PCP - General 09/29/24 [employer] Relationship Specialty Start Date End Date Carlee Mcgregor APREmerson Cortez CNP [address] [place] [address] PCP - General 09/29/24 Goals (unrecognized section and content) Goals may be documented in a n alternate section No data available for this section No data available for this section No data available for this section No data available for this section No data available for this section No data available for this section No data available for this section No data available for this sectionGoals may be documented in an alternate section No data available for this section No data available for this section No data available for this section No data available for this section No data available for this section No data available for this section No data available for this section No data available for this section No data available for this section No data available for this section No data available for this section No data available for this section No data available for this section No data available for this section No data available for this section No data available for this section No data available for this section No data available for this section Care Team (unrecognized sect ion and content) Care Team Personnel Name: PHYSICIAN, NONE Position: Physician Member Role: Primary Care Physician Care Team Related Persons Name: OBINNA MUIR Address: Home [address] [place], [place] [id number] FOR RECORDS PERTAINING TO PATIENTS WHO ARE OR HAVE BEEN ENROLLED IN A CHEMICAL DEPENDENCY/SUBSTANCEABUSE PROGRAM, SOME INFORMATION MAY BE OMITTED. This clinical summary was aggregated from multiple sources. Caution should be exercised in using it in the provision of clinical care. This summary normalizes information from multiple sources, and as a consequence, information in this document may materially change the coding, format and clinical context of patient data. In addition, data may be omitted in some cases. CLINICAL DECISIONS SHOULD BE BASED ON THE PRIMARY CLINICAL RECORDS. [employer] provides no warranty or guarantee of the accuracy or completeness of information in this document.
== END 2024-10-23 10:11 | disposition home or self-care (01) ==
PROVIDERS: Emergency Provider Emergency Medicine; PCP Nurse Practitioner Family; Visit Provider Emergency Medicine
DX: S92.902D Unspecified fracture of left foot, subsequent encounter for fracture with routine healing (principal); I11.0 Hypertensive heart disease with heart failure; I50.9 Heart failure, unspecified; E11.40 Type 2 diabetes mellitus with diabetic neuropathy, unspecified; Z79.4 Long term (current) use of insulin; X58.XXXD Exposure to other specified factors, subsequent encounter; Z79.84 Long term (current) use of oral hypoglycemic drugs; Z79.899 Other long term (current) drug therapy; Z87.891 Personal history of nicotine dependence
CPT/HCPCS: 29405; 99282

== ENCOUNTER 2025-03-09 12:20 | Emergency (ER) | payer MEDICAID, SELFPAY ==
[2025-03-09 12:21] VITALS: BP 145/92; PULSE 89; RESP 18; TEMP 36.3; O2SAT 94; BMI 37.5
--- NOTE | 2025-03-09 12:48 | EX.ED.UPPERE ---
HPI History of Present Illness Chief Complaint: Upper Extremity Injury Detail of Chief Complaint: Left shoulder injury Informant: patient Narrative Narrative: Patient presents with left shoulder injury that occurred about 3 days ago. Patient states that he was moving a washer down steps when he felt a pop in his left shoulder. He had pain since that time. Patient believes it is his rotator cuff because he had a problem with his right rotator cuff that required surgical repair. Patient is right-hand dominant. Denies any other injuries. Denies fall or trauma otherwise. [facility] Medical History CHF (congestive heart failure) Meniscal injury ACL tear Biceps muscle tear Chronic pain Neuropathy Hypertension Diabetes Home Medications ?Medication ?Instructions ?Recorded ?Last Taken ?Type gabapentin 600 mg tablet 600 mg PO TID nerve pain 05/18/19 07/23/20 History cyclobenzaprine 10 mg tablet 10 mg PO TID PRN PRN Muscle Spasm 05/14/20 07/23/20 History simvastatin 10 mg tablet 10 mg PO DAILY cholesterol 05/14/20 07/23/20 History glimepiride 2 mg tablet 2 mg PO DAILY #30 TABLETS 07/24/20 Unknown Rx lisinopril 20 mg tablet 20 mg PO DAILY #30 tabs 07/24/20 Unknown Rx insulin glargine 100 unit/mL (3 20 unit subcut BID 01/26/21 01/26/21 History mL) subcutaneous pen (Lantus Solostar U-100 Insulin) furosemide 20 mg tablet 20 mg PO DAILY 06/29/23 Unknown History Held on 08/24/23. Instructions: Resume on 08/28/23. hydrocodone-acetaminophen 5-325mg 1 tab PO Q6H PRN PRN Pain 3 days 06/29/23 Unknown Rx 5mg-325mg #10 TABLETS magnesium oxide 400 mg (241.3 mg 400 mg PO BID 06/29/23 Unknown History magnesium) tablet potassium chloride 20 mEq 20 meq PO DAILY 06/29/23 Unknown History tablet,extended release albuterol sulfate 90 mcg/actuation inhalation 08/24/23 Unknown History aerosol inhaler ammonium lactate 12 % topical cream 1 applic topical BID 08/24/23 Unknown History losartan 50 mg tablet 50 mg PO DAILY 08/24/23 Unknown History metformin 1,000 mg tablet 1,000 mg PO BID 08/24/23 Unknown History prednisone 5 mg tablet 5 mg PO DAILY 08/24/23 Unknown History ropinirole 1 mg tablet 1 mg PO QHS 08/24/23 Unknown History sacubitril 24 mg-valsartan 26 mg 1 tab PO BID 08/24/23 Unknown History tablet (Entresto) spironolactone 25 mg tablet 25 mg PO DAILY 08/24/23 Unknown History hydrocodone-acetaminophen 5-325mg 1 tab PO Q4H PRN PRN Pain 2 days 03/09/25 Unknown Rx 5mg-325mg #10 TABLETS Allergy/AdvReac Type Severity Reaction Status Date / Time aspirin AdvReac NOSEBLEED Verified 03/09/25 12:23 Surgical History Hx of repair of rotator cuff Hx of arthroscopic knee surgery S/P ACL repair Social History Smoking Status: Former smoker ROS ROS ED Review of Systems ROS Unobtainable: other Constitutional Constitutional ED: Reports lethargy; Denies chills, fever(s), sweats or weight loss Eyes Eyes: Denies blurry vision, change in vision or diplopia ENT ENT ED: Denies rhinorrhea or sore throat Cardiovascular Cardiovascular: Denies chest pain, orthopnea or racing heartbeat Respiratory/Chest Respiratory/Chest: Denies cough, dyspnea, dyspnea on exertion, orthopnea or sputum Gastrointestinal Gastrointestinal: Denies abdominal pain, diarrhea, nausea or vomiting Genitourinary Genitourinary ED: Denies dysuria, hematuria or urinary frequency Musculoskeletal Musculoskeletal: Reports other Details: Left shoulder pain/injury ; Denies arthralgias, back pain, myalgias or neck pain Integumentary Denies abscess, Abrasions or rash Neurologic Neurologic: Denies headache(s) or weakness Psychiatric Psychiatric: Denies anxiety, depression or suicidal thoughts Endocrine Endocrinology: Denies polydipsia, polyphagia or polyuria Hematologic/Lymphatic Hematologic/Lymphatic: Denies easy bleeding, easy bruising or lymphadenopathy Allergic/Immunologic Allergic/Immunologic ED: Denies mouth swelling, tongue swelling or urticaria EXAM Physical Exam Const Vital Signs: 03/09/25 12:21 Temperature 97.4 F L Temperature Source Oral Pulse Rate 89 Respiratory Rate 18 Blood Pressure 145/92 H Blood Pressure Mean 109 Pulse Ox 94 Oxygen Delivery Method Room Air Positive well nourished and well developed General Appearance ED: well developed and NAD HEENT Reports TM's clear and moist mucous membranes normocephalic and atraumatic; Negative for trauma or tenderness Tympanic Membrane ED: Yes TM's clear Eyes PERRL and EOMs intact bilaterally General Eye ED: Negative for pale conjunctiva or scleral icterus Neck no lymphadenopathy, supple and no JVD General: Negative for tenderness Chest Wall inspection of chest normal and palpation of chest normal Chest: Negative for tenderness Resp normal respiratory effort and clear to auscultation bilaterally Effort and Inspection: Negative for respiratory distress or pain with movement Auscultation: Negative for rhonchi, wheezes or diminished lung sounds Cardio regular rate, regular rhythm, S1 normal heart sound, S2 normal heart sound and no murmurs Peripheral Pulses: pulses 2+ throughout GI normal to inspection, nondistended, normoactive bowel sounds, soft to palpation, non-tender, non-distended and no masses Back/Spine no CVA tenderness and no thoracic nor lumbar tenderness Extremity Extremity Narrative: Left shoulder-patient has superficial abrasion noted over the anterior left shoulder. No cellulitic changes. Patient has painful range of motion with abduction. He is able to abduct about 90 degrees. Neurovascular intact distally. No sulcus sign and no evidence of dislocation. He has diffuse tenderness about the glenohumeral joint anteriorly as well as posteriorly General Extremety ED: Negative for edema General Extremity: Negative for edema Neuro oriented x3, CN's II-XII intact bilaterally, no sensory deficits noted and gait normal Sensorium / Orientation: awake, alert, oriented to person, oriented to place and oriented to time Motor Exam: strength 5/5 throughout and strength abnormal Psych mental status grossly normal Skin no rashes or lesions noted and no wounds MDM MDM MDM Narrative Medical decision making narrative: Patient presents with injury to left shoulder that occurred 3 days ago. X-rays obtained of the left shoulder showed no fractures or dislocation. Patient was noted incidentally to have some osteoarthritis at the AC joint. Discussed results with the patient. At this point we will write him a prescription for a few Schwertner for pain and give a sling to. Will refer to orthopedics for follow-up. He may need further outpatient workup such as possibly MRI to evaluate for rotator cuff if symptoms do not improve. Radiography Diagnostic Testin view x-rays of the left shoulder obtained interpreted by myself as no evidence of fracture or dislocation. Radiology in agreement. Discharge Plan Triage Chief Complaint: Upper Extremity Injury ED Provider: Chloe Acosta Dx/Rx/DC Orders Clinical Impression: Left shoulder strain Instructions: ED Shoulder Sprain Prescriptions: New hydrocodone-acetaminophen 5-325 mg tablet 1 tab PO Q4H PRN PRN (Reason: Pain) 2 Days Qty: 10 0RF No Action gabapentin 600 MG tablet 600 mg PO TID cyclobenzaprine 10 MG tablet 10 mg PO TID PRN PRN (Reason: Muscle Spasm) simvastatin 10 MG tablet 10 mg PO DAILY glimepiride 2 MG tablet 2 mg PO DAILY Qty: 30 0RF lisinopril 20 MG tablet 20 mg PO DAILY Qty: 30 0RF insulin glargine [Lantus Solostar U-100 Insulin] 100 unit/mL (3 mL) insulin pen 20 unit SUBCUT BID Patient Comments: INJECT TEN units under the skin TWICE DAILY losartan 50 mg tablet 50 mg PO DAILY ropinirole 1 mg tablet 1 mg PO QHS prednisone 5 mg tablet 5 mg PO DAILY metformin 1,000 mg tablet 1,000 mg PO BID ammonium lactate 12 % cream 1 applic TOPICAL BID albuterol sulfate 90 mcg/actuation HFA aerosol inhaler inhalation Entresto 24-26 mg tablet 1 tab PO BID Rx Instructions: TAKE 1 TABLET BY MOUTH TWO TIMES EVERY DAY THROUGH August; ON FridayAugust, START TAKING 1 12 TABLETS BY MOUTH TWO TIMES EVERY DAY spironolactone 25 mg tablet 25 mg PO DAILY furosemide 20 mg tablet 20 mg PO DAILY magnesium oxide 400 mg (241.3 mg magnesium) tablet 400 mg PO BID potassium chloride 20 mEq tablet extended release 20 meq PO DAILY hydrocodone-acetaminophen 5-325 mg tablet 1 tab PO Q6H PRN PRN (Reason: Pain) 3 Days Qty: 10 0RF Primary Care Provider: CARLEE ADAM Referrals: Manny Martin MD [Med Staff - Active Staff, Orthopedics] - 5-7 Days CARLEE ADAM NP-C [Primary Care Provider, Family Practice] Print Language: Indonesian Disposition Disposition: Home, Self Care
--- NOTE | 2025-03-09 13:00 | RAD_ITS ---
PROCEDURE: SHOULDER MIN 2 VIEWS 03/09/2025 REASON FOR EXAM: INJURY TECHNIQUE: Procedure Code: RADSH Modality: DX Procedure: SHOULDER MIN 2 VIEWS Laterality: Right left shoulder. COMPARISON: None FINDINGS: Bones: No fracture seen. Joints: Joint space narrowing and osteoarthritis of the left acromioclavicular joint. Soft tissues: Soft tissues are unremarkable. Other: RAD/Shoulder min 2 Views IMPRESSION: Osteoarthritis of the acromioclavicular joint. [facility]
== END 2025-03-09 14:00 | disposition home or self-care (01) ==
PROVIDERS: Emergency Provider Emergency Medicine; PCP Nurse Practitioner Family; Visit Provider Emergency Medicine
DX: S46.912A Strain of unspecified muscle, fascia and tendon at shoulder and upper arm level, left arm, initial encounter (principal); X58.XXXA Exposure to other specified factors, initial encounter; Y93.89 Activity, other specified; Z87.891 Personal history of nicotine dependence
CPT/HCPCS: 73030; 99283